=== PATIENT | female | born 1935 | race Caucasian/White ===

== ENCOUNTER → 2017-12-16 11:18 | Outpatient (CLI) | payer MEDICARE, OTHER, SELFPAY ==
--- NOTE | 2017-12-16 11:23 | RAD_ITS ---
STUDY: X-RAY - RIGHT KNEE REASON FOR EXAM: Pain, fall. TECHNIQUE: 4 view(s) of the knee. COMPARISON: None. FINDINGS: Normal visualized distal femur. Normal visualized proximal tibia and fibula. Normal proximal tibiofibular articulation. There is chondrocalcinosis of the medial meniscus and medial femoral condyle without joint space narrowing of the medial femorotibial compartment. There is chondrocalcinosis of the lateral meniscus, lateral femoral condyle and lateral tibial plateau without joint space narrowing of the lateral femorotibial compartment. Normal patellofemoral articulation. There is a small soft tissue calcification in the medial posterior aspect of the mid/distal thigh. RAD/Knee 4 or More Views IMPRESSION: Chondrocalcinosis Small soft tissue calcification in the thigh. No demonstrated fracture. Electronically Signed: Jevon Pavon MD at 14:41 EDT Tel , Service support ,
== END ==
PROVIDERS: Family Provider Internal Medicine; PCP Internal Medicine; Visit Provider Orthopaedic Surgery
DX: M25.561 Pain in right knee (principal)
CPT/HCPCS: 73564

== ENCOUNTER → 2018-01-19 09:04 | Outpatient (CLI) | payer MEDICARE, OTHER, SELFPAY ==
--- NOTE | 2018-01-19 09:08 | RAD_ITS ---
STUDY: X-RAY - LEFT SHOULDER REASON FOR EXAM: Female, 82 years old. Pain. TECHNIQUE: 4 view(s) of the shoulder. COMPARISON: Chest, April 27, 2013. FINDINGS: Normal glenohumeral articulation. There is degenerative arthrosis of the acromioclavicular joint without inferior osseous spur formation. Normal acromion. There is no acute fracture, dislocation or destructive osseous pathology. There is demineralization of the humerus and visualized osseous structures. The soft tissue structures are unremarkable. There is interval median sternotomy. Normal visualized pulmonary apex. RAD/Shoulder min 2 Views IMPRESSION: Mild degenerative changes of the acromioclavicular joint. The findings appear unchanged from a chest film of April 27, 2013. Electronically Signed: Gigi Iglesias DO at 18:51 EDT Tel [phone], Service support ,
== END ==
PROVIDERS: Family Provider Internal Medicine; PCP Internal Medicine; Visit Provider Internal Medicine
DX: M25.512 Pain in left shoulder (principal)
CPT/HCPCS: 73030

== ENCOUNTER 2018-01-20 10:00 | Outpatient (RCR) | payer MEDICARE, OTHER, SELFPAY ==
--- NOTE | 2017-12-22 14:50 | HP.PTEVAL_ITS ---
Patient's Visit Information PETER MARIEE is a 82 year old F referred to Physical Therapy by Trish Nieves DO with a diagnosis of Bilateral Knee Pain. Date of Evaluation: 12/22/17 Physical Therapist: Sharyn Vo - Visit Plan Frequency: 2x /Week Duration: 4 Weeks Plan: Focus on LE and core s/s - Subjective Subjective: June intial injury missed a step- saw PCP who gave her a medrol dose pack- and PT- did not get better- went to [place]- Oct 15, 2017 had another sharp and called PCP again- had MRI in [facility]- was diganosed with a gastroc strain- Saw Dr. Nieves when she got home- had an injection December and was sent to PT for aquatic therapy. Patient reports that currently she has pain on the medial side of the right knee and the posterior knee. Wost : 01/13 Agg:straining it, getting down on her knees, stairs, being up on it for to long- Mostly tired and achy- Eases: rubbing it, injection Best: 10/16. Pain does radiate to the calf and into the hip. No N/T in the leg. Lives with back pain- long time- weakness in it- it comes and goes. Sleep: wakes up at night- side sleeper- does not sleep with a pillow between her knees. Before all of this started she was coming to [employer] 5 days a week-(classes, TM, equiptment). Years ago she did water classes but is not currently enrolled. X- rays and MRI of the knee/ankle. PMHx: high cholesterol, HTN, heart surgery ( open heart 2013- followed by Dr. Bray). amlodipine, aspirin, atenolol, calcium carbonate 500 mg calcium, cholecalciferol (vitamin D3), glucosamine 750 [id number], omega [id number]-fish oil, - Objective Posture: FH, RS- increased kyphosis. Gait: no deviation noted. Stairs: asc/ desc 8 recip with 1 HR. HR/TR: WNL. SLS: 30 sec without LOB. ROM: WFL. Strength: Tracy: 5/5, Knee: 4/5, Hip: 4/5 throughout Core: fair minus - Goals Goal 1:: Patient will be I with HEP and progression Goal Time Frame: 4-6 Weeks Goal 2:: Patient will demo 5/5 strength in LE Goal Time Frame: 4-6 Weeks Goal 3:: Patient will maintain proper posture t/o tx session to demo increased core s/s. Goal Time Frame: 4-6 Weeks - Rehabilitation Potential Physical Therapy Diagnosis: Patient presents with hypomobility- she has decreased strength, flex and muscular endurance leading to poor posture and increased pain with ADL's. Rehabilitation Potential: Good - Anticipated Interventions Patient/Client Instruction: Educate patient on: Benefits of Fitness Program For the Purpose of:: To increase tolerance to activity/condition/position Therapeutic Exercise to Include: Strength training, Endurance training, Balance training, Agility training, Body mechanics, Postural training, Flexibilty training, In an aquatic setting, Dynamic Lumbar Stabilization For the Purpose of:: To improve muscle performance and motor function Thank you for the opportunity to evaluate your patient. For Medicare and Medicare HMO plans, please review the plan of care and approve it. It will need to be FAXED BACK to us at [phone] for Medicare purposes. Please let me know if there are questions or concerns regarding this plan of care. Physician Signature: Date:
--- NOTE | 2018-01-20 11:24 | HP.PTDCSUM ---
HP - PT D/C Summary It has been my pleasure to treat PEETR MARIEE under orders from Trish Nieves DO, for the diagnosis of Bilateral Knee Pain for a total of 9 visit(s). Discharge Date: Please see the following information for a summary of their discharge status. - Subjective Subjective: Patient reports that she is doing better- she is sore when she rides in the car for along time and as well as when she is gets up from sitting for to long. Saw MD yesterday who took x-rays of her shoulder and blood work for possible inflammatory disease - Pain R knee Pain Intensity (Out of 10): 0 L knee Pain Intensity (Out of 10): 0 - Objective Objective/Function: Posture: FH, RS- increased kyphosis. Gait: no deviation noted. Stairs: asc/desc 8 recip with 1 HR. HR/TR: WNL. SLS: 30 sec without LOB. ROM: WFL. Strength: Tracy: 5/5, Knee: 4/5, Hip: 4/5 throughout Core: fair minus - Goals Goal 1:: Patient will be I with HEP and progression Goal Progress: Goal Met Goal 2:: Patient will demo 5/5 strength in LE Goal Progress: Progressing Goal 3:: Patient will maintain proper posture t/o tx session to demo increased core s/s. Goal Progress: Progressing - Plan Plan: Discharge to [facility] with yossi porras - D/C Information If there are questions or concerns regarding this patient's physical therapy, please feel free to call me at [phone]. Thank you for the referral of this patient. Sincerely, Sharyn Vo
== END 2018-01-20 19:00 | disposition home or self-care (01) ==
LOC: PT 10:00
PROVIDERS: Family Provider Internal Medicine; PCP Internal Medicine; Visit Provider Orthopaedic Surgery
DX: S09.1 Injury of muscle and tendon of head (principal); M11.20 Other chondrocalcinosis, unspecified site; M25.561 Pain in right knee; M25.562 Pain in left knee
CPT/HCPCS: 97113; 97162; 97164

== ENCOUNTER → 2018-03-04 09:01 | Outpatient (CLI) | payer MEDICARE, OTHER, SELFPAY ==
--- NOTE | 2018-03-04 09:29 | RAD_ITS ---
STUDY: X-RAY - LEFT KNEE REASON FOR EXAM: Female, 82 years old. Chronic knee pain. TECHNIQUE: 4 view(s) of the knee. COMPARISON: None. FINDINGS: Normal visualized distal femur. Normal visualized proximal tibia and fibula. Normal proximal tibiofibular articulation. There is mild degenerative arthrosis of the medial femorotibial compartment. Normal lateral femorotibial compartment. Normal patellofemoral articulation. Chondrocalcinosis of the medial and lateral menisci. Minimal joint effusion. RAD/Knee 4 or More Views IMPRESSION: Degenerative arthrosis. Chondrocalcinosis of the medial and lateral menisci. Minimal joint effusion. Electronically Signed: Clayton De La Rosa MD at 12:53 EDT Tel [phone], Service support ,
== END ==
PROVIDERS: Family Provider Internal Medicine; PCP Internal Medicine; Visit Provider Internal Medicine
DX: M25.562 Pain in left knee (principal)
CPT/HCPCS: 73564

== ENCOUNTER 2018-03-07 10:30 | Outpatient (RCR) | payer MEDICARE, OTHER, SELFPAY ==
--- NOTE | 2018-01-26 18:00 | HP.PTEVAL_ITS ---
Patient's Visit Information PETER MARIEE is a 82 year old F referred to Physical Therapy by Rica Her with a diagnosis of NELLY SHOULDER PAIN. Date of Evaluation: 01/26/18 Physical Therapist: Manuela Do Visit Plan Frequency: 2-3x /Week Duration: 4-6 Weeks Plan: POSTURE CORRECTION/STRENGTHENING, INSTRUCTION IN APPROPRIATE BODY MECHANICS AND ACTIVITY MODIFICATIONS. NELLY UE ROM, STRETCHING AND STRENGTHENING. HEP INSTRUCTION. MODALITIES NEEDED. - Subjective Subjective: Diagnosis: NELLY SHOULDER PAIN LEFT > RIGHT. RIGHT HANDED. Work/ Leisure: RETIRED. Disability: NO. Present symptoms: NELLY SHOULDER PAIN LEFT > RIGHT. RIGHT HANDED. CURRENTLY DENIES NECK PAIN. Present since: 2 MONTHS. Pain Scale: Worst - 10/10 Least - 3/10. Currently: LEFT SHOULDER 6/10, RIGHT SHOULDER 3/10. Commenced as a result of: NO APPARENT REASON. Symptoms at onset: LEFT SHOULDER. Worse: PUTTING IT BEHIND HER BACK TO PUT HER BRA ON , HAS TO PUT LEFT SLEEVE ON FIRST, LEFT SDLY, TRYING TO MOVE ARM AFTER RESTING IT ON ARM REST. Better: HANGING AT SIDE. Disturbed sleep: YES. Previous history/Previous treatment: NO SHOULDER SURGERIES. NO INJECTIONS. NO SHOULDER PT. NO CHIRO. HISTORY OF NECK PROBLEMS AND HAD PT ABOUT 5 YEARS AGO. NO NECK SURGERY. NO NECK INJECTIONS. STATES DR. HERNANDEZ RECOMMENDED INJECTIONS BUT SHE DID NOT HAVE THEM. EXERCISE HELPED HER NECK. MASSAGE 2 WEEKS AGO HERE WITH CRICKET AND IT HELPED HER SHOULDERS. Dizziness: NO. Tinnitis: NO. Nausea : NO. Difficulty Swollowing: NO. Gait: NORMAL - NO ASSISTIVE DEVICES. Accidents: NO. Unexplained weight loss: NO. Imaging: RECENT LEFT SHOULDER X -RAY RESULTS: Mild degenerative changes of the acromioclavicular joint. The findings appear unchanged from a chest film of April 27, 2013. PMH/Recent major surgery: RECENT EPISODE OF PT FOR KNEES - IMPROVING. OPEN HEART SURGERY 2013. NO CVA. NO CANCER. NOT DIABETIC. HTN. - Objective Sitting Posture/Standing Posture: POOR. FORWARD HEAD AND ROUNDED SHOULDERS. Active Correction of posture: NE. Other Observations: INDEP GAIT AND TRANSFERS. Motor deficit: NELLY SHOUDER STRENGTH 3+/5 IN AVAILABLE ROM. PAIN WITH TESTING. NELLY ELBOW, WRIST AND HAND WFL. Sensory deficit: NO. ROM deficit : NELLY SHOULDER AROM LIMITED ABOUT 25% NELLY ALL PLANES WITH ACTIVE SHOULDER FLEX TO APPROX 135 DEG. PAIN WITH TESTING. NELLY ELBOW, WRIST AND HANDS WFL. Cervical Mvmt Loss: Flex: NIL. Pro: NIL. Ext: CHARLIE. Ret: CHARLIE. RSB: CHARLIE. LSB : CHARLIE. R Rot: MOD. L Rot: MOD. NO PAIN WITH CERVICAL ROM TESTING. Postural strength: POOR. Palpation: TENDERNESS OF NELLY SHOULDERS ESPECIALLY LEFT LATERAL SHOULDER. INCREASED MUSCLE TONE NELLY UPPER TRAPS LEFT > RIGHT. - Goals Goal 1:: DECREASE C/O NELLY SHOULDER PAIN Goal Time Frame: 4-6 Weeks Goal 2:: IMPROVE LIFTING, PUSHING, PULLING, REACHING, ADL AND SLEEP FUNCTION Goal Time Frame: 4-6 Weeks Goal 3:: INDEP HEP Goal Time Frame: 4-6 Weeks - Rehabilitation Potential Rehabilitation Potential: Fair - Anticipated Interventions Patient/Client Instruction: Educate patient on: Condition, Plan of Care, Risk Factors, Benefits of Fitness Program For the Purpose of:: To improve self management Therapeutic Exercise to Include: Strength training, Body mechanics, Postural training, Flexibilty training, Passive ROM, Active ROM, Scapular Strength/ Stabilization For the Purpose of:: To decrease pain, To increase ROM, To improve muscle performance and motor function, To increase tolerance to activity/condition/ position, To improve ability of physical actions for home/community/work/leisure Cryotherapy (ice pack, ice massage): Yes Thermo therapy (hot pack): Yes Ultrasound (thermal/non thermal): Yes For the Purpose of:: To decrease pain, To decrease swelling/inflammation, To increase ROM, To improve nutrient delivery to tissue Thank you for the opportunity to evaluate your patient. For Medicare and Medicare HMO plans, please review the plan of care and approve it. It will need to be FAXED BACK to us at [phone] for Medicare purposes. Please let me know if there are questions or concerns regarding this plan of care. Physician Signature: Date:
--- NOTE | 2018-02-18 14:54 | HP.PTREVAL_ITS ---
Rica Her, It has been my pleasure to treat PETER MARIEE over the last 9 visits for NELLY SHOULDER PAIN. Please see the progress note below for an update on the physical therapy plan of care! Subjective: PATIENT REPORTS SHE STILL FEELS LIKE THE THERAPY IS HELPING. ABLE TO DO THE HEP WITHOUT INCREASED PAIN. Objective/Function: UPON EXAM, PATIENT CONTINUES TO HAVE LIMITED BILATERAL SHOULDER FORWARD FLEXION AROM TO ABOUT 140 DEG BUT THERE IS MUCH LESS PAIN WITH MVMT NOW. SHE IS TOLERATING PRE WELL WITH INCREASED NELLY SHOULDER STRENGTH GRADED 4/5 NOW ALL PLANES WITH MMT'ING. PATIENT IS A GOOD CANDIDATE TO CONTINUE PT AT THIS TIME. Plan Plan: DECREASE PT TO 2X'S A WEEK X 3 WEEKS AND CONTINUE PER CURRENT POC WORKING TOWARD SAME GOALS. PATIENT IS AGREEABLE. Goals Goal 1:: DECREASE C/O NELLY SHOULDER PAIN Goal Time Frame: 4-6 Weeks Goal Progress: Progressing Goal 2:: IMPROVE LIFTING, PUSHING, PULLING, REACHING, ADL AND SLEEP FUNCTION Goal Time Frame: 4-6 Weeks Goal Progress: Progressing Goal 3:: INDEP HEP Goal Time Frame: 4-6 Weeks Goal Progress: Progressing Anticipated Interventions Patient/Client Instruction: Educate patient on: Condition, Plan of Care, Risk Factors, Benefits of Fitness Program For the Purpose of:: To improve self management Therapeutic Exercise to Include: Strength training, Body mechanics, Postural training, Flexibilty training, Passive ROM, Active ROM, Scapular Strength/ Stabilization For the Purpose of:: To decrease pain, To increase ROM, To improve muscle performance and motor function, To increase tolerance to activity/condition/ position, To improve ability of physical actions for home/community/work/leisure Cryotherapy (ice pack, ice massage): Yes Thermo therapy (hot pack): Yes Ultrasound (thermal/non thermal): Yes For the Purpose of:: To decrease pain, To decrease swelling/inflammation, To increase ROM, To improve nutrient delivery to tissue Please do not hesitate to contact me at [phone] by phone or Fax: if you have questions or concerns regarding this new plan of care! Sincerely, Manuela Alvarado
--- NOTE | 2018-03-07 11:31 | HP.PTDCSUM_ITS ---
HP - PT D/C Summary It has been my pleasure to treat PETER MARIEE under orders from Rica Her, for the diagnosis of NELLY SHOULDER PAIN for a total of 14 visit(s). Discharge Date: 03/07/18 Please see the following information for a summary of their discharge status. - Subjective Subjective: PATIENT REPORTS SHE WENT TO A FOLLOW UP WITH DR. HER WEDNESDAY. SHE REPORTS DR. HER DID NOT RECOMMEND FURTHER TESTING OR SURGERY FOR LEFT SHOULDER. STATES DR. HER DID NOT RECOMMEND LEFT SHOULDER MRI BUT SHE DID PUT HER ON PREDNISONE. PATIENT REPORTS SHE HAS BEEN ON PREDNISONE IN THE PAST FOR HER OTHER PAINS OTHER THAN HER SHOULDER. SHE HAS HAD CORTISONE INJECTION AND WATER EX PT FOR HER KNEE IN THE PAST. STATES DR. HER GAVE HER ANOTHER PT ORDER OPEN TO TREAT HER SHOULDERS, BACK AND KNEES BUT SHE FORGOT IT. 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 NO PAIN WHEN SHE WOKE UP THIS MORNING. PATIENT IS HOPEFUL THAT HEP AND TIME WILL GET LEFT SHOULDER BACK TO 100%. SHE REPORTS HER RIGHT SHOULDER IS BACK TO NORMAL AND HER LEFT SHOULDER PAIN RANGES 0/10 TO 1 OR 2/10 AT ITS WORST. ABLE TO GO BOATING AND GET ON THE JET SKI EVEN BUT FELT WEAKER THAN LAST YEAR. PATIENT REPORTS THE PREDNISONE SEEMS TO HAVE HELPED HER KNEE A LOT BUT NOT NOTICING A CHANGE IN HER SHOULDER. - Pain LEFT SHOULDER Pain Intensity (Out of 10): 1 RIGHT SHOULDER Pain Intensity (Out of 10): 0 - Overall Improvement % Improvement: 95 - Objective Objective/Function: PATIENTS LEFT SHOULDER PAIN, ROM AND STRENGTH HAS IMPROVED GREATLY SINCE INITIAL EVAL BUT SHE CONTINUES TO HAVE LEFT SHOULDER DECREASED ROM , STRENGTH AND PAIN COMPARED TO THE RIGHT SHOULDER WHICH IS NOW WNL IN TERMS OF FUNCTION AND NOT PAINFUL. UPON EXAM, LEFT SHOULDER AROM IN SITTING = 150 DEG, PROM IN LYING INTO FLEX = 158 DEG WITH END RANGE PAIN. SUPINE LEFT SHOULDER SCAPTION IN 160 DEG. SUPINE PASSIVE IR 75 DEG AND ER 69 DEG. PATIENT HAS SOME REPORTABLY MILD PAIN AT THE END OF THE AVAILABLE ROM WITH LEFT SHOULDER ROM TESTING ALL PLANES. NELLY UE MMT'ING IS 4-5/5 AND TESTING DOES NOT PROVOKE PAIN ( FLEX AND ABDUCTION TESTED MID-RANGE AND IR/ER ROTATION TESTED WITH ELBOW AT SIDE ) DASH SCORE HAS IMPROVED FROM 76 TO 53 SINCE FEBRUARY 18 AND FROM 81 TO 53 SINCE INITIAL EVAL. ALL GOALS HAVE MET. INDEP HEP. - Goals Goal 1:: DECREASE C/O NELLY SHOULDER PAIN Goal Progress: Goal Met Goal 2:: IMPROVE LIFTING, PUSHING, PULLING, REACHING, ADL AND SLEEP FUNCTION Goal Progress: Goal Met Goal 3:: INDEP HEP Goal Progress: Goal Met - Plan Plan: THIS PT AND PATIENT AGREE ON D/C TO INDEP EX AND FOLLOW UP WITH DR. HER NEEDED AT THIS TIME. WE WOULD BE HAPPY TO RESUME PT INDICATED IN THE FUTURE. - D/C Information If there are questions or concerns regarding this patient's physical therapy, please feel free to call me at [phone]. Thank you for the referral of this patient. Sincerely, Manuela Alvarado
== END 2018-03-07 19:00 | disposition home or self-care (01) ==
LOC: PT 10:30
PROVIDERS: Family Provider Internal Medicine; PCP Internal Medicine; Visit Provider Internal Medicine
DX: M25.512 Pain in left shoulder (principal); M25.511 Pain in right shoulder
CPT/HCPCS: 97035; 97110; 97140; 97162; 97164; 97530

== ENCOUNTER → 2018-08-01 11:31 | Outpatient (CLI) | payer MEDICARE, OTHER, SELFPAY ==
[2018-01-25 13:19] VITALS: BMI 25.4
--- NOTE | 2018-08-01 11:40 | US_ITS ---
STUDY: SUPERFICIAL ULTRASOUND - LOWER EXTREMITY. REASON FOR EXAM: Female, 83 years old. Ankle nodule/tender TECHNIQUE: A superficial ultrasound was performed with real-time and static aguilera-scale imaging. COMPARISON: None. FINDINGS: No discrete solid or cystic lesions are visualized. No subcutaneous edema is seen. US/Ext Non Vasc Limited/Soft Tiss IMPRESSION: No discrete solid or cystic lesion. Electronically Signed: Danuta Campos MD at 22:13 EST Tel , Service support ,
== END ==
PROVIDERS: Family Provider Internal Medicine; PCP Internal Medicine; Referring Provider Internal Medicine; Visit Provider Internal Medicine
DX: M25.572 Pain in left ankle and joints of left foot (principal); R22.42 Localized swelling, mass and lump, left lower limb
CPT/HCPCS: 76882

== ENCOUNTER → 2018-12-20 09:18 | Outpatient (CLI) | payer MEDICARE, OTHER, SELFPAY ==
[2018-01-25 13:19] VITALS: BMI 25.4
--- NOTE | 2018-12-20 09:22 | BI_ITS ---
MAMMOGRAPHY - BILATERAL SCREENING REASON FOR EXAM: Female, 83 years old. Routine annual screening examination. PERTINENT HISTORY: Daughter with breast cancer. Sister with breast cancer. Mother with breast cancer. Aunt with breast cancer. History of prior left excisional breast biopsy. TECHNIQUE: Digital bilateral breast joanna (3D mammographic acquisition) in the CC and MLO projections. 2-D mediolateral oblique (MLO) and craniocaudad (CC) views of both breasts were obtained. CAD: Full Field Digital Mammography with Computer Added Detection was performed. COMPARISON: Comparison is made with prior study dated September 02, 2017 and September 01, 2016. FINDINGS: Breast Composition: The breasts are heterogeneously dense, which may obscure small masses. There are no dominant masses or suspicious calcifications. No other significant abnormalities are identified. There has been no significant change since the prior study. BI/SCREENING MAMM (CAD), BILAT IMPRESSION: Stable bilateral screening mammogram. Yearly follow-up mammogram recommended. (A) ASSESSMENT CATEGORY: BIRADS Category 1: Negative. A letter regarding these results will be sent to the patient by the facility within 30 days. Approximately 10% of breast cancers are not detected by mammography. A normal mammogram should not delay biopsy of a clinically suspicious abnormality. [id number] Electronically Signed: Clayton De La Rosa, at 14:15 EDT , Service support ,
--- NOTE | 2018-12-20 09:27 | BD_ITS ---
STUDY: DUAL ENERGY X-RAY ABSORPTIOMETRY / DXA REASON FOR EXAM: Female, 83 years old. The patient is postmenopausal. Loss of height. TECHNIQUE: Bone Mineral Density (BMD) measurements of lumbar spine and bilateral hips were obtained. COMPARISON: Comparison is made with prior study dated August 19, 2010. FINDINGS: Lumbar Spine (L1-L4): g/cm2 (0.969) / T-score (-1.6) / Z-score (0.2) Findings are suggestive of osteopenia with a moderate fracture risk. Left Femur Total: g/cm2 (0.891) / T-score (-0.9) / Z-score (1.1) Left Femoral Neck: g/cm2 (0.806) / T-score (-1.7) / Z-score (0.5) Right Femur Total: g/cm2 (0.882) / T-score (-1.0) / Z-score (1.1) Right Femoral Neck: g/cm2 (0.835) / T-score (-1.5) / Z-score (0.8) The T-Scores on the most recent prior examination were: Lumbar Spine (L1-L4): There has been worsening of bone density since the previous examination. Left Femur Total: which represents a worsening of 1%. Right Femur Total: which represents an improvement of 0.3%. BD/Dexa Bone Density Study IMPRESSION: The patient is considered osteopenic as outlined below according to World Bruno Organization (WHO) criteria with a moderate fracture risk. There has been worsening of bone density since the previous examination. Reference Information: The T-score is the number of standard deviations above or below the standard which is normal for young adults at their peak bone mineral density. The World Health Organization (WHO) interprets the T-scores as follows: Above -1 Normal bone density Between -1 and -2.5 Osteopenia Equal to / or below -2.5 Osteoporosis As a practical clinical guideline, osteopenia may be graded as follows: Mild -1 through -1.5 Moderate -1.6 through -2.0 Severe -2.1 through -2.4 The Z-score is the number of standard deviations above or below age-matched controls. A Z-score of less than -1.5 would be considered abnormal. References: 1. NIH Osteoporosis and Related Bone Diseases http://www.osteo.org 2. International Society for Clinical Densitometry http://www.iscd.org 3. National Osteoporosis Foundation http://www.nof.org Electronically Signed: Clayton De La Rosa, at 11:45 EDT , Service support ,
--- NOTE | 2018-12-20 10:09 | CDU_ITS ---
Reason For Study: atherosclerosis Rt. Velocities/BP Lt. Velocities/BP Prox CCA 61.7/10.8 cm/sec. Prox CCA 77.2/15.7 cm/sec. Mid CCA 68.2/12.1 cm/sec. Mid CCA 70.6/14.6 cm/sec. Dist CCA 60.4/12.1 cm/sec. Dist CCA 57.4/12.4 cm/sec. Prox ICA 48.6/12.1 cm/sec. Prox ICA 56.3/15.7 cm/sec. Mid ICA 63.0/14.7 cm/sec. Mid ICA 61.8/12.4 cm/sec. Dist ICA 60.4/12.5 cm/sec. Dist ICA 75.0/20.1 cm/sec. Rt. ICA/CCA = .9. Lt. ICA/CCA = 1.1. Prox ECA 111.2/8.2 cm/sec. Prox ECA 101.4/5.8 cm/sec. Rt. Vert. 43.2/8.0 cm/sec. Lt. Vert. 32.2/6.9 cm/sec. Right Extracranial There is intimal thickening but no significant atherosclerotic plaque noted in the right common carotid artery. There is intimal thickening but no significant atherosclerotic plaque noted in the right internal carotid artery. There is intimal thickening but no significant atherosclerotic plaque noted in the right external carotid artery. Antegrade flow is noted in the right vertebral artery. Left Extracranial There is intimal thickening but no significant atherosclerotic plaque noted in the left common carotid artery. There is heterogeneous, irregular atherosclerotic plaque noted in the left internal carotid artery. There is heterogeneous, irregular atherosclerotic plaque noted in the left external carotid artery. Antegrade flow is noted in the left vertebral artery. Procedure Carotid Duplex [id number]. The exam was diagnostic. Exam performed in department. Interpretation Summary No significant atherosclerotic plaque or stenosis noted in the right internal carotid artery. Mild (<50%) stenosis left extracranial internal carotid. Flow within the vertebral arteries is antegrade bilaterally. Ordering Physician: Rica Her Performed By: Misbah Gilliam RVT
== END ==
PROVIDERS: Family Provider Internal Medicine; PCP Internal Medicine; Referring Provider Internal Medicine; Visit Provider Internal Medicine
DX: I65.22 Occlusion and stenosis of left carotid artery (principal); M85.80 Other specified disorders of bone density and structure, unspecified site; Z12.31 Encounter for screening mammogram for malignant neoplasm of breast; Z78.0 Asymptomatic menopausal state
CPT/HCPCS: 77063; 77067; 77080; 93880

== ENCOUNTER → 2019-01-06 07:05 | Outpatient (CLI) | payer MEDICARE, OTHER, SELFPAY ==
[2018-01-25 13:19] VITALS: BMI 25.4
[2019-01-06 09:27] LABS: AST(SGOT) 21 U/L (15-37); Alanine Aminotransfer ALT/SGPT 27 U/L (13-56); Albumin, Serum 3.5 g/dL (3.2-5.0); Alkaline Phosphatase 82 U/L (45-117); Bilirubin, Direct 0.11 mg/dL (0.00-0.30); Cholesterol 167 mg/dL (200); Globulin 3.1 g/dL (2.2-4.2); High Density Lipoprotein 38 mg/dL; Protein, Total 6.6 g/dL (6.4-8.2); Triglycerides 211 mg/dL; Very Low Density Lipoprotein 42 mg/dL (5-40)
== END ==
PROVIDERS: Nurse Practitioner Family; Family Provider Internal Medicine; PCP Internal Medicine; Referring Provider Internal Medicine Cardiovascular Disease; Visit Provider Internal Medicine Cardiovascular Disease
DX: E78.5 Hyperlipidemia, unspecified (principal); I25.10 Atherosclerotic heart disease of native coronary artery without angina pectoris
CPT/HCPCS: 36415; 80061; 80076

== ENCOUNTER → 2020-01-16 08:12 | Outpatient (CLI) | payer MEDICARE, OTHER, SELFPAY ==
[2019-01-10 12:33] VITALS: BMI 24.7
[2020-01-09 09:12] VITALS: BMI 24.3
--- NOTE | 2020-01-16 08:15 | BI_ITS ---
MAMMOGRAPHY - BILATERAL SCREENING REASON FOR EXAM: Female, 84 years old. Routine annual screening examination. PERTINENT HISTORY: Daughter with breast cancer. Remote left excisional breast biopsy. Sister with breast cancer. Mother with breast cancer. Aunt with breast cancer. TECHNIQUE: Digital bilateral breast lotus (3D mammographic acquisition) in the CC and MLO projections. 2-D mediolateral oblique (MLO) and craniocaudad (CC) views of both breasts were obtained. CAD: Full Field Digital Mammography with Computer Added Detection was performed. COMPARISON: Comparison is made with prior examination dated December 20, 2018 and September 02, 2017. FINDINGS: Breast Composition: The breasts are heterogeneously dense, which may obscure small masses. There are no dominant masses or suspicious calcifications. No other significant abnormalities are identified. BI/SCREEN MAMM (CAD) W/LOTUS BILAT IMPRESSION: Stable bilateral screening mammogram. Yearly follow-up mammogram recommended. (A) ASSESSMENT CATEGORY: BIRADS Category 1: Negative. A letter regarding these results will be sent to the patient by the facility within 30 days. Approximately 10% of breast cancers are not detected by mammography. A normal mammogram should not delay biopsy of a clinically suspicious abnormality. [id number] Electronically Signed: Clayton De La Rosa, at 9:01 EDT , Service support ,
== END ==
PROVIDERS: Family Provider Internal Medicine; PCP Internal Medicine; Referring Provider Internal Medicine; Visit Provider Internal Medicine
DX: Z12.31 Encounter for screening mammogram for malignant neoplasm of breast (principal); Z80.3 Family history of malignant neoplasm of breast
CPT/HCPCS: 77063; 77067

== ENCOUNTER 2020-01-22 08:51 | Day surgery (SDC) | payer MEDICARE, OTHER, SELFPAY ==
[2020-01-09 09:12] VITALS: BMI 24.3
--- NOTE | 2020-01-16 07:54 | RAD_ITS ---
STUDY: X-RAY CHEST REASON FOR EXAM: Female, 84 years old. Pre heart cath -- CAD, CP, some SOB -- stents-1998, bypass 2013 TECHNIQUE: PA and lateral views of the chest. COMPARISON: Comparison is made with prior study dated April 27, 2013. FINDINGS: Minimal increased markings are seen in the lingular segment of the left upper lobe with blunting of the left costophrenic angle. This most likely represents scarring. There is no demonstrated pleural abnormality. Sternal cerclage wires and vascular clips are present from a prior sternotomy and coronary artery bypass graft procedure (CABG). Normal mediastinum and ashley. Normal visualized pulmonary arteries. There is atherosclerotic calcification of the aortic arch with tortuosity. Normal visualized thoracic spine. Normal visualized ribs, clavicles, and shoulders. Surgical clips are seen in the right upper quadrant most likely secondary to prior cholecystectomy. RAD/Chest PA and Lateral IMPRESSION: No acute abnormality seen. Electronically Signed: Clayton De La Rosa, at 8:34 EDT , Service support ,
[2020-01-16 09:05] LABS: Absolute Lymphocyte Count 1.25 X10^3/uL (0.83-4.51); Absolute Neutrophil Count 5.3 X10^3/uL (2.0-7.7); Basophil# 0.08 X10^3/uL; Basophil% 1.1 % (0-1); Eosinophils% 2.7 % (0-5); Hematocrit 42.3 % (37-47); Hemoglobin 14.1 g/dL (12.0-15.0); Lymphocyte # 1.25 X10^3/ul (4.0); Lymphocyte % 16.9 % (19-41); Mean Corp Hgb Conc 33.3 g/dL (32-36); Mean Corpuscular Hgb 28.9 pg (27.0-32.0); Mean Corpuscular Volume 86.7 fL (81-99); Monocyte# 0.56 X10^3/uL; Monocyte% 7.6 % (0-10); NRBC Flagged by Analyzer 0 % (0-5); Neutrophil # 5.27 X10^3/uL (2.7-7.7); Neutrophil % 71.3 % (47-70); Platelet Count 195 K/mm3 (150-450); RBC Distribution Width CV 12.9 % (11.6-14.6); RBC Distribution Width SD 39.8 fl (35.1-43.9); Red Blood Count 4.88 M/mm3 (4.2-5.4); White Blood Count 7.4 K/mm3 (4.4-11.0)
[2020-01-16 09:28] LABS: Anion Gap 3 (5-15); BUN 20 mg/dL (7-18); BUN/Creat Ratio 14.9 RATIO (10-20); Calcium,Total 9.2 mg/dL (8.5-10.1); Chloride 107 mmol/L (98-107); Creatinine, Serum 1.34 mg/dL (0.55-1.02); EST Glomerular Filtration Rate 40 mL/min (>60); Est Glom Filt Rate - Afr Amer 49 mL/min (>60); Glucose 145 mg/dL (74-106); Potassium 3.9 mmol/L (3.5-5.1); Sodium Level 141 mmol/L (136-145)
[2020-01-19 12:06] VITALS: BMI 24.3
--- NOTE | 2020-01-22 09:40 | EKG12_ITS ---
Test Reason : PRE CATH Blood Pressure : / mmHG Vent. Rate : 053 BPM Atrial Rate : 053 BPM P-R Int : 202 ms QRS Dur : 078 ms QT Int : 450 ms P-R-T Axes : 064 005 095 degrees QTc Int : 422 ms Sinus bradycardia Anteroseptal infarct , age undetermined Abnormal ECG When compared with ECG of 26-APR-2013 23:06, No significant change was found Confirmed by LO FRAUSTO, VALERIO ([id number]), art editor PEDRO OLIVER ([id number]) on 01/23/2020 4:04:08 PM Referred By: Valerio Cheatham Confirmed By:VALERIO CHEATHAM MD
--- NOTE | 2020-01-22 11:47 | CL.D_ITS ---
Patient Name: PETER MARIEE Study Date: 01/22/2020 Performing: Saúl Cheatham MD Ht: 61.81 inches 157 cm : 1935 Wt: 132.28 lbs 60 kg Age: 84 Gender: female BSA: 1.6 PROCEDURE(S) PERFORMED [id number]-[id number]/COR/LV/CABG CLINICAL PROFILE AND INDICATIONS Indications: Suspected CAD Heart Failure: None Stress/Imaging Stress/Image Study Performed: No CONCLUSIONS Non obstructive coronary arteries Patent left internal mammary artery to the left anterior descending artery, mild disease noted in the right coronary artery and circumflex artery and occluded mid left anterior descending artery RECOMMENDATIONS Medical therapy DESCRIPTION OF PROCEDURE The patient arrived to the procedure lab. The risks and benefits of the procedure as well as a full d escription of our services here and current unavailability of surgical backup were fully explained to the patient and/or their significant other prior to the catheterization. The Timeout was completed, verifying the correct patient and procedure. The patient's procedural site was prepped and draped in the usual fashion. Local anesthetic was given subcutaneously to left radial region with Lidocaine 2%. Using a modified Seldinger technique, arterial access was obtained via the left radial artery, a 6Fr sheath was inserted. Left internal mammary artery graft to the LAD selective angiography was perfor med in multiple views using a 5 Fr. IM catheter. Left Coronary Artery selective angiography was perfo rmed in multiple views using a 5 Fr. JL4 catheter. Right Coronary Artery selective angiography was th en performed in multiple views using a 5 Fr. 3DRC (Surinder) catheter. Left Ventriculography was performed in WATERS projection using a 5 Fr. Pigtail catheter. LV to AO pullback pr essures were then recorded.The arterial sheath was pulled and a TR Band was applied for hemostasis CORONARY ANGIOGRAPHY DOMINANCE: Co- Dominant LEFT HEART ASSESSMENT Left Ventricular Ejection Fraction: by LV Gram 60 % Normal LV wall motion Normal Left Ventricular systolic function LEFT MAIN: Mild calcification LEFT ANTERIOR DESCENDING ARTERY: MID LAD: is occluded CIRCUMFLEX ARTERY: MID CIRC: Moderate luminal irregularities up to 50% RIGHT CORONARY ARTERY: Mild luminal irregularities less than 30% GRAFTS: JOHN graft to the Mid LAD is patent COMPLICATIONS No Complications PROCEDURE MEDICATIONS Versed 1 mg IV Fentanyl 50 mcg IV Versed 1 mg IV Oxygen: 2 L/min via nasal cannula Heparin given IA 01/22/2020 11:19:08 Verapamil 2.5mg, Ntg 100mcgs, 2000 units of Heparin given IA 01/22/2020 11:19:08 SUMMARY OF HEMODYNAMIC DATA Time AIR REST ECG 09:20:52 AO 140/52 (90) SA 11:20:47 LV 153/0, 8 11:34:00 LV 156/-1, 8 11:34:07 LV 152/2, 11 11:34:43 LV 152/1, 10 11:34:50 LVp 167/3, 14 11:34:57 AOp 161/52 (97) 11:35:02 Signed By Saúl Cheatham MD On 01/22/2020 11:47:15 Saúl Cheatham MD
== END 2020-01-22 13:15 | disposition home or self-care (01) ==
LOC: CLSP 08:52
PROVIDERS: PCP Internal Medicine; Referring Provider Internal Medicine Cardiovascular Disease; Visit Provider Internal Medicine Cardiovascular Disease
DX: I25.118 Atherosclerotic heart disease of native coronary artery with other forms of angina pectoris (principal); I10 Essential (primary) hypertension; E78.00 Pure hypercholesterolemia, unspecified; Z95.1 Presence of aortocoronary bypass graft; M15.9 Polyosteoarthritis, unspecified; K21.9 Gastro-esophageal reflux disease without esophagitis; Z79.82 Long term (current) use of aspirin; Z79.899 Other long term (current) drug therapy
CPT/HCPCS: 36415; 71046; 80048; 85025; 93005; 93459; 99152; 99153; J7040; C1769; C1894

== ENCOUNTER → 2021-01-14 14:49 | Outpatient (CLI) | payer MEDICARE, OTHER, SELFPAY ==
[2021-01-07 09:36] VITALS: BMI 23.2
--- NOTE | 2021-01-14 14:51 | CDU_ITS ---
Reason For Study: Atherosclerosis of left carotid artery Rt. Velocities/BP Lt. Velocities/BP Prox CCA 94.3/6.9 cm/sec. Prox CCA 83.8/10.2 cm/sec. Mid CCA 76/10.8 cm/sec. Mid CCA 78.3/12.4 cm/sec. Dist CCA 61.7/8.2 cm/sec. Dist CCA 56.3/6.9 cm/sec. Prox ICA 52/11.3 cm/sec. Prox ICA 58.1/12.6 cm/sec. Mid ICA 77.2/17.9 cm/sec. Mid ICA 59.3/10.2 cm/sec. Dist ICA 90.4/16.8 cm/sec. Dist ICA 81.4/16.3 cm/sec. Rt. ICA/CCA = 1.19. Lt. ICA/CCA = 1.04. Prox ECA 102.1 cm/sec. Prox ECA 113.8 cm/sec. Rt. Vert. 39.9/9.1 cm/sec. Lt. Vert. 47.5/8.8 cm/sec. Right Extracranial There is homogeneous, smooth atherosclerotic plaque noted in the right common carotid artery. There is intimal thickening but no significant atherosclerotic plaque noted in the right internal carotid artery. There is intimal thickening but no significant atherosclerotic plaque noted in the right external carotid artery. Antegrade flow is noted in the right vertebral artery. Left Extracranial There is homogeneous, smooth atherosclerotic plaque noted in the left common carotid artery. There is heterogeneous, irregular atherosclerotic plaque noted in the left internal carotid artery. There is heterogeneous, irregular atherosclerotic plaque noted in the left external carotid artery. Antegrade flow is noted in the left vertebral artery. Procedure Carotid Duplex [id number]. This is a Carotid Duplex examination using B-mode, color flow and specral Doppler. Exam performed in department. VL/Carotid Duplex Ultrasound Interpretation Summary No significant atherosclerotic plaque or stenosis noted in the right internal c arotid artery. Mild (<50%) stenosis left extracranial internal carotid. Flow within the vertebral a rteries is antegrade bilaterally. Ordering Physician: Rica Her Referring Physician: Rica Her Performed By: Kassi Fish RVT
== END ==
PROVIDERS: PCP Internal Medicine; Referring Provider Internal Medicine; Visit Provider Internal Medicine
DX: I65.22 Occlusion and stenosis of left carotid artery (principal)
CPT/HCPCS: 93880

== ENCOUNTER 2021-02-08 05:48 | Emergency (ER) | payer MEDICARE, OTHER, SELFPAY ==
[2021-01-07 09:36] VITALS: BMI 23.2
[2021-02-08 05:49] VITALS: BP 143/71; PULSE 60; RESP 18; TEMP 36.9; O2SAT 99; BMI 23.4
--- NOTE | 2021-02-08 05:58 | RAD_ITS ---
STUDY: X-RAY - PELVIS AND RIGHT HIP REASON FOR EXAM: Female, 85 years old. pain TECHNIQUE: 3 views of the pelvis and hip. COMPARISON: None. FINDINGS: There is a non-specific bowel gas pattern. Normal visualized soft tissue structures. Normal bilateral iliac wings, sacroiliac joints and visualized sacrum. Normal bilateral superior and inferior pubic rami. Normal pubic symphysis. Normal bilateral ischial tuberosities. Normal visualized femoral head. Normal acetabulum. Normal hip joint. RAD/HIP, UNI W/ Pelvis 2-3 Views IMPRESSION: Normal x-ray examination of the pelvis and hip. Electronically Signed: Gabriele Conde MD at 6:40 EDT Tel , Service support ,
--- NOTE | 2021-02-08 06:03 | EDS_ITS ---
HPI History of Present Illness Chief Complaint: Lower Extremity Injury Informant: patient Narrative Narrative: 85-year-old female states that on she was doing a lot of yard work. She started doing the yard work she began to have a slight discomfort in her hip. This pain is progressively worsened throughout the week and last night began to feel that she could not walk. She has tried some anti- inflammatories and Tylenol. She took a Flexeril last night. She notes focal tenderness just posterior to her greater trochanter. She notes pain with movement. [facility] Medical History Atherosclerotic heart disease of [place] coronary artery without angina pectoris Back problem Essential (primary) hypertension Gallstones Generalized osteoarthrosis of multiple sites GERD (gastroesophageal reflux disease) HLD (hyperlipidemia) Osteopenia Home Medications cholecalciferol (vitamin D3) 25 mcg (1,000 unit) tablet 1,000 unit PO QDAY 12/16/17 [History Last Taken Unknown] aspirin 81 mg tablet,delayed release 81 mg PO QDAY tab 01/24/18 [History Last Taken 01/22/20] calcium carbonate 500 mg calcium (1,250 mg) tablet 1,000 mg PO DAILY tab 01/09/20 [History Last Taken Unknown] folic acid 800 mcg tablet 0.8 mg PO DAILY 01/09/20 [History Last Taken Unknown] glucosamine-chondroitin 250 mg-200 mg tablet 2 tab PO BID tab 01/09/20 [History Last Taken Unknown] omega 9-hgd-otb-fish oil 1,000 mg (120 mg-180 mg) capsule 1,000 mg PO DAILY cap 01/09/20 [History Last Taken Unknown] omeprazole 20 mg capsule,delayed release 20 mg PO DAILY cap 01/09/20 [History Last Taken Unknown] vitamin B complex 1 tab PO DAILY 01/09/20 [History Last Taken Unknown] amlodipine 10 mg tablet 10 mg PO DAILY #90 tab 01/07/21 [Rx Last Taken Unknown] atenolol 25 mg tablet 25 mg PO QDAY #90 tab 01/07/21 [Rx Last Taken Unknown] simvastatin 20 mg tablet 20 mg PO QAM #90 tab 01/07/21 [Rx Last Taken Unknown] hydrocodone-acetaminophen 1 tab PO Q6H PRN PRN 3 Days #12 tablet 02/08/21 [Rx Last Taken Unknown] naproxen 500 mg PO BID #20 tab 02/08/21 [Rx Last Taken Unknown] Allergy/AdvReac Type Severity Reaction Status Date / Time No Known Allergies Allergy Verified 02/08/21 05:52 Family History Mother Cancer Ovarian cancer Heart disease Breast cancer Hypertension Valvular heart disease Father Cancer throat cancer Asthma Sister Breast cancer Daughter Cancer Surgical History 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) H/O left breast biopsy H/O: hysterectomy History of appendectomy History of coronary angioplasty (08/1999) History of left heart catheterization (01/22/20) History of ovarian cystectomy Hx of cholecystectomy Social History Smoking Status: Never smoker alcohol intake: current Alcohol type: wine ROS ROS ED Constitutional Constitutional ED: Denies chills or weight loss Eyes Eyes: Denies change in vision or diplopia ENT ENT ED: Denies ear pain, rhinorrhea or sore throat Cardiovascular Cardiovascular: Denies chest pain, orthopnea, palpitations or racing heartbeat Respiratory/Chest Respiratory/Chest: Denies cough, dyspnea or orthopnea Gastrointestinal Gastrointestinal: Denies abdominal pain, diarrhea, nausea or vomiting Genitourinary Genitourinary ED: Denies dysuria, hematuria or urinary frequency Musculoskeletal Musculoskeletal: Reports other Details: See history of present illness ; Denies arthralgias, back pain or myalgias Integumentary Denies abscess or rash Neurologic Neurologic: Denies headache(s) or weakness Psychiatric Psychiatric: Denies anxiety, depression, suicidal ideation or suicidal thoughts Endocrine Endocrinology: Denies polydipsia, polyphagia or polyuria Allergic/Immunologic Allergic/Immunologic ED: Denies mouth swelling, tongue swelling or urticaria EXAM Physical Exam Const Vital Signs: 02/08/21 05:49 Temperature 98.4 F Temperature Source Temporal Pulse Rate 60 Respiratory Rate 18 Blood Pressure 143/71 H Blood Pressure Mean 95 Pulse Ox 99 Oxygen Delivery Method Room Air Positive well nourished and well developed General Appearance ED: well developed HEENT Reports normocephalic, head/scalp atraumatic and moist mucous membranes Eyes PERRL and EOMs intact bilaterally Neck no lymphadenopathy, supple and no JVD Resp normal respiratory effort and clear to auscultation bilaterally Cardio regular rate, regular rhythm and no murmurs GI normal to inspection, nondistended, normoactive bowel sounds and non-tender Palpation: soft Back/Spine no CVA tenderness and normal ROM Extremity Extremity Narrative: Patient has tenderness posterior to the greater trochanter. She also has some tenderness anterior. She has painful range of motion of the hip. No skin changes to suggest infection. General Extremety ED: Negative for edema General Extremity: Negative for edema Neuro oriented x3 and CN's II-XII intact bilaterally Sensorium / Orientation: alert Motor Exam: strength 5/5 throughout Psych mental status grossly normal Mood & Affect: Negative for depressed or tearful Skin no rashes or lesions noted and no wounds MDM MDM MDM Narrative Medical decision making narrative: My interpretation of the plain films of the right hip and pelvis is no acute fracture. Clinically I think this is a bursitis. I gave her a dose of Kenalog and a dose of Toradol. I will place her on anti-inflammatories instructions for ice and rest. I will write a few [place] for pain. If she is not improving she should see orthopedics. Radiography Diagnostic Testing: Radiology Impression Hip/Pelvis X-Ray 02/08/21 05:58 IMPRESSION: Normal x-ray examination of the pelvis and hip. Electronically Signed: Gabriele Conde MD at 6:40 EDT Tel , Service support , Discharge Plan Triage Chief Complaint: Lower Extremity Injury ED Provider: Jasper Hernandez Dx/Rx/DC Orders Clinical Impression: Greater trochanteric bursitis of right hip Instructions: ED Bursitis Prescriptions: New hydrocodone-acetaminophen [hydrocodone-acetaminophen] 1 TABLET tablet 1 tab PO Q6H PRN PRN (Reason: Pain) 3 Days Qty: 12 RF: 0 naproxen 500 MG tablet 500 mg PO BID Qty: 20 RF: 0 No Action cholecalciferol (vitamin D3) 1,000 unit tablet 1,000 unit PO QDAY RF: 0 aspirin 81 mg tablet,delayed release (DR/EC) 81 mg PO QDAY RF: 0 calcium carbonate [Calcium 500] 500 mg calcium (1,250 mg) tablet 1,000 mg PO DAILY RF: 0 omega 4-zli-dct-fish oil [Fish Oil] 1,000 mg (120 mg-180 mg) capsule 1,000 mg PO DAILY RF: 0 omeprazole 20 mg capsule,delayed release(DR/EC) 20 mg PO DAILY RF: 0 vitamin B complex [B Complex-Vitamin B12] Tablet 1 tab PO DAILY RF: 0 folic acid 800 mcg tablet 0.8 mg PO DAILY RF: 0 glucosamine-chondroitin 250 mg-200 mg tablet 250-200 mg tablet 2 tab PO BID RF: 0 amlodipine 10 mg tablet 10 mg PO DAILY Qty: 90 RF: 4 atenolol 25 mg tablet 25 mg PO QDAY Qty: 90 RF: 3 simvastatin [Zocor] 20 mg tablet 20 mg PO QAM Qty: 90 RF: 3 Primary Care Provider: Rica Her Referrals: Rica Her MD [Primary Care Provider] - As Needed Tio Hilliard MD [STAFF PHYSICIAN] - 1 Week if not improving Disposition Disposition: Home, self care
[2021-02-08] MEDS: Ketorolac 30 MG/ML Syringe IM (06:52)
[2021-02-08] MEDS: Triamcinolone Acetonide 40 MG/ML Vial IM (06:54)
--- NOTE | 2021-02-08 07:37 | ED.RN ---
PT WAS OBSERVED FOR SHOT TIME FOR GREATER THAT 15 MIN, NO REACTION NOTED. PT D/C.
== END 2021-02-08 07:40 | disposition home or self-care (01) ==
LOC: ED 06:51
PROVIDERS: Emergency Provider Emergency Medicine; PCP Internal Medicine
DX: M70.61 Trochanteric bursitis, right hip (principal); I25.10 Atherosclerotic heart disease of native coronary artery without angina pectoris
CPT/HCPCS: 73502; 96372; 99282

== ENCOUNTER → 2021-04-07 08:56 | Outpatient (CLI) | payer MEDICARE, OTHER, SELFPAY ==
--- NOTE | 2021-04-07 08:58 | US_ITS ---
STUDY: ULTRASOUND OF THE FEMALE PELVIS - LIMITED REASON FOR EXAM: Female, 85 years old pelvic fullness, history of hysterectomy TECHNIQUE: Transabdominal TECHNICAL QUALITY: Adequate. COMPARISON: None. FINDINGS: The uterus is surgically absent. The right ovary is not visualized. There is no visualized right adnexal mass or complex lesion. The left ovary is not visualized. There is no visualized left adnexal mass or complex lesion. There is no fluid in the cul-de-sac. US/Pelvic (Non ) IMPRESSION: 1. Hysterectomy and nonvisualized ovaries. No substantial change since 06/18/2016. No demonstrated pelvic mass or acute abnormality. Electronically Signed: Khadar Castillo MD ([place]) at 9:55 EDT , Service support ,
== END ==
PROVIDERS: PCP Internal Medicine; Referring Provider Internal Medicine; Visit Provider Internal Medicine
DX: R19.00 Intra-abdominal and pelvic swelling, mass and lump, unspecified site (principal)
CPT/HCPCS: 76856

== ENCOUNTER 2021-05-08 09:00 | Outpatient (RCR) | payer MEDICARE, OTHER, SELFPAY ==
--- NOTE | 2021-04-10 11:45 | HP.PTEVAL_ITS ---
Patient's Visit Information PETER MARIEE is a 85 year old F referred to Physical Therapy by Dr. Rica Her MD with a diagnosis of Bilateral Hip Pain. Date of Evaluation: 04/10/21 Physical Therapist: Sharyn Vo DPT - Visit Plan Frequency: 2x /Week Duration: 4 Weeks Plan: Focus on LE and core strength/stabilization. HEP Given IE: TA Contraction, Bridge, Hip Add, Hip Abd GTB, Postural education - Subjective Patient reports that she goes to [place] in the winter- walks 30-45 minutes a day- does exercises at - [employer]- continued to walk but did not return to the gym right away. When the restrictions were lifted- she walked the and did two classes- Wednesday could not walk due to the right hip- had to be taken to the ED. Took an x-rays and diagnosed with bursitis on February 08. They gave her two injection and sent her home with ice and medication. This helped but wasn't a ton better- saw Dr. Her who gave her a cortisone injection. As she has continued to work through this she has started to have pain in the left hip. They go back to [place] in June. She had a pelvic ultrasound last week which was normal. Still having pain in bilateral hips right is worse than left. Pain is located along the lateral aspect of the hip- pain radiates to the knee- and has been getting vasyl horses in the calf but they subsiding. Describes the pain as more dull and achy. She has back pain- knows she has degeneration. Worst:5/10 Agg: laying down at night. Eases: Tylenol, ice Best: 0/10. Sleep: disturbed- wakes her up- painful when she lays on both sides. Does have N/T but its not new in bilateral LE right>left. Did have x-rays or the hip but not of the lumbar spine. No MRI. PMHx/Meds: see scanned in. - Objective Posture: FH, RS can correct with verbal and tactile cues but does not maintain. Gait: slight pelvic translation. Stair: asc/desc 8 recip with 1 HR- mild pelvic translation. HR/TR: able with UE A. SLS: weight shift but unable to SLS without A from UE. ROM: WFL in all planes of the lumbar spine, Hip: diminished IR by 50% with pain. Strength: Core: fair minus, Hip: 4/5 flexion/ext/abd 4-/5 IR/ER with discomfort. Flex: HS: moderate, Gastroc: moderate. Palpation: tender along greater troch into the gluts and paraspinals of the lumber spine. Special Test: LLD: negative, Squish Test: positive, Scour: positive, OLIVIER: positive - Goals Goal 1:: Patient will be I with HEP and progression Goal Time Frame: 4-6 Weeks Goal 2:: Patient will report no hip pain for 1 week Goal Time Frame: 4-6 Weeks Goal 3:: Patient will maintain proper posture t/o tx session to demo increased core s/s Goal Time Frame: 4-6 Weeks - Rehabilitation Potential Physical Therapy Diagnosis: Patient presents with hypomobility- she has decreased painfree ROM, LE and core strength/stabilization and muscular endurance leading to poor posture and increased pain with ADL's. Rehabilitation Potential: Fair - Anticipated Interventions Patient/Client Instruction: Educate patient on: Benefits of Fitness Program Therapeutic Exercise to Include: Strength training, Endurance training, Agility training, Body mechanics, Postural training, Flexibilty training, Gait and locomotor training, Neuromotor development, Dynamic Lumbar Stabilization, Scapular Strength/Stabilization For the Purpose of:: To improve muscle performance and motor function TENS: Yes Cryotherapy (ice pack, ice massage): Yes Thermo therapy (hot pack): Yes Ultrasound (thermal/non thermal): Yes Thank you for the opportunity to evaluate your patient. For Medicare and Medicare HMO plans, please review the plan of care and approve it. It will need to be FAXED BACK to us at [phone] for Medicare purposes. For Medicare only, by signing this I certify the plan of care. Please let me know if there are questions or concerns regarding this plan of care. Physician Signature: Date:
--- NOTE | 2021-05-08 15:13 | HP.PTREVAL ---
Dr. Rica Her MD, It has been my pleasure to treat PETER MARIEE over the last 9 visits for Bilateral Hip Pain. Please see the progress note below for an update on the physical therapy plan of care! Subjective: I'M FINE DURING THE DAY BUT NOT SOME NIGHTS. SOME NIGHTS ARE BETTER THAN OTHERS. PATIENT REPORTS THE US REALLY HELPED LAST VISIT. PATIENT REPORTS LESS PAIN AT NIGHT AND SLEEPING BETTER. PATIENT ALSO REPORTS HER BACK/CORE FEEL STRONGER AND SHE CAN GET COMFORTABLE MORE EASILY LYING ON HER BACK NOW. PATIENT REPORTS SHE LIKES THE EX'S. PATIENT REPORTS SHE FEELS LIKE SHE HAS ENOUGH EX'S FOR NOW AND IS GOING TO FOLLOW UP WITH Nathan HER TOMORROW. Objective/Function: PATIENT WAS SEEN TODAY FOR RE-ASSESSMENT OF PROGRESS TOWARD THE SET PT GOALS AND THE NEED FOR FURTHER PHYSICAL THERAPY VS READINESS FOR DISCHARGE. UPON EXAM TODAY: ALL GOALS HAVE BEEN MET BUT PATIENT IS STILL GETTING LOW BACK AND NELLY HIP PAIN MAINLY AT NIGHT. SHE RECENTLY REPORTED UP TO 7/10 PAIN AT NIGHT. Plan Plan: PHYSICIAN RE-CHECK. Balance/Gait/Functional tests - Balance/Special Test Scores Lower Extremity Functional Score: 69 Goals Goal 1:: Patient will be I with HEP and progression Goal Time Frame: 4-6 Weeks Goal Progress: Goal Met Goal 2:: Patient will report no hip pain for 1 week Goal Time Frame: 4-6 Weeks Goal Progress: Progressing Goal 3:: Patient will maintain proper posture t/o tx session to demo increased core s/s Goal Time Frame: 4-6 Weeks Goal Progress: Progressing Anticipated Interventions Patient/Client Instruction: Educate patient on: Benefits of Fitness Program Therapeutic Exercise to Include: Strength training, Endurance training, Agility training, Body mechanics, Postural training, Flexibilty training, Gait and locomotor training, Neuromotor development, Dynamic Lumbar Stabilization, Scapular Strength/Stabilization For the Purpose of:: To improve muscle performance and motor function TENS: Yes Cryotherapy (ice pack, ice massage): Yes Thermo therapy (hot pack): Yes Ultrasound (thermal/non thermal): Yes Please do not hesitate to contact me at [phone] by phone or if you have questions or concerns regarding this new plan of care! Sincerely, Manuela Alvarado, PT, Cert MDT
--- NOTE | 2021-05-23 11:47 | HP.PT.NRP ---
PETER MARIEE was seen in my office for initial evaluation on 04/10/21. The following Plan of Care was established for this patient: Initial Frequency: 2x /Week Initial Duration: 4 Weeks Patient/Client Instruction: Educate patient on: Benefits of Fitness Program Therapeutic Exercise to Include: Strength training, Endurance training, Agility training, Body mechanics, Postural training, Flexibilty training, Gait and locomotor training, Neuromotor development, Dynamic Lumbar Stabilization, Scapular Strength/Stabilization For the Purpose of:: To improve muscle performance and motor function TENS: Yes Cryotherapy (ice pack, ice massage): Yes Thermo therapy (hot pack): Yes Ultrasound (thermal/non thermal): Yes This patient was last seen in our office . Pertinent comments regarding their Physical therapy will appear below: PATIENT DROPPED A NOTE OFF TO ME TODAY REPORTING SHE AND DR. ROE AGREED ON HER CONTINUING HER HEP INDEP'LY AT THIS TIME AND WILL RE-ASSESS IN JUNE. At this point I will be discontinuing this patient from physical therapy. I would be happy to see this patient again in the future if found appropriate by the physician. Thank you! Maunela Alvarado, PT, Cert MDT Balance/Gait/Functional tests - Balance/Special Test Scores Lower Extremity Functional Score: 69
== END 2021-05-08 19:00 | disposition home or self-care (01) ==
LOC: PT 09:00
PROVIDERS: PCP Internal Medicine; Referring Provider Internal Medicine; Visit Provider Internal Medicine
DX: M25.552 Pain in left hip (principal); M25.551 Pain in right hip
CPT/HCPCS: 97035; 97110; 97140; 97162; 97164; 97530

== ENCOUNTER → 2021-06-23 10:02 | Outpatient (CLI) | payer MEDICARE, OTHER, SELFPAY ==
--- NOTE | 2021-06-23 10:04 | CDU_ITS ---
Reason For Study: occlusion and stenosis of left carotid artery Rt. Velocities/BP Lt. Velocities/BP Prox CCA 68.2/12.1 cm/sec. Prox CCA 79.4/13.5 cm/sec. Mid CCA 70.8/12.1 cm/sec. Mid CCA 77.2/15.7 cm/sec. Dist CCA 63.0/12.1 cm/sec. Dist CCA 54.1/10.2 cm/sec. Prox ICA 52.6/13.4 cm/sec. Prox ICA 55.2/12.4 cm/sec. Mid ICA 68.2/13.4 cm/sec. Mid ICA 60.7/15.7 cm/sec. Dist ICA 61.7/12.7 cm/sec. Dist ICA 65.2/15.6 cm/sec. Rt. ICA/CCA = 1.0. Lt. ICA/CCA = .8. Prox ECA 86.5/4.3 cm/sec. Prox ECA 86.0/4.7 cm/sec. Rt. Vert. 37.7/8.0 cm/sec. Lt. Vert. 46.5/10.2 cm/sec. Right Extracranial There is intimal thickening but no significant atherosclerotic plaque noted in the right common carotid artery. There is heterogeneous, smooth atherosclerotic plaque noted in the right internal carotid artery. There is intimal thickening but no significant atherosclerotic plaque noted in the right external carotid artery. Antegrade flow is noted in the right vertebral artery. Left Extracranial There is intimal thickening but no significant atherosclerotic plaque noted in the left common carotid artery. There is heterogeneous, irregular atherosclerotic plaque noted in the left internal carotid artery. There is homogeneous, smooth atherosclerotic plaque noted in the left external carotid artery. Antegrade flow is noted in the left vertebral artery. Procedure Carotid Duplex [id number]. This is a Carotid Duplex examination using B-mode, color flow and specral Doppler. The exam was diagnostic. Exam performed in department. VL/Carotid Duplex Ultrasound Interpretation Summary Minimal smooth plaque at the proximal right internal carotid artery with less t putnam 50% stenosis. Less than 50% stenosis right external carotid artery Irregular calcific plaque of the proximal left internal carotid artery with les s than 50% stenosis . Less than 50% stenosis of left external carotid artery Patent antegrade vertebral arteries bilaterally No change from the previous examination of May 11-2021 Ordering Physician: Rica Her Referring Physician: Rica Her Performed By: Misbah Gilliam RVT
== END ==
PROVIDERS: PCP Internal Medicine; Referring Provider Internal Medicine; Visit Provider Internal Medicine
DX: I65.22 Occlusion and stenosis of left carotid artery (principal)
CPT/HCPCS: 93880

== ENCOUNTER → 2021-06-24 08:31 | Outpatient (CLI) | payer MEDICARE, OTHER, SELFPAY ==
--- NOTE | 2021-06-24 08:36 | BD_ITS ---
STUDY: DUAL ENERGY X-RAY ABSORPTIOMETRY / DXA REASON FOR EXAM: Female, 85 years old. M85.89. The patient is postmenopausal. TECHNIQUE: Bone Mineral Density (BMD) measurements of lumbar spine and bilateral hips were obtained. COMPARISON: Comparison is made with prior study dated 12/20/2018 and 09/01/2016. FINDINGS: Lumbar Spine (L1-L4): g/cm2 (0.779) / T-score (-1.8) / Z-score (0.8) Findings are suggestive of osteopenia with a moderate fracture risk. Left Femur Total: g/cm2 (0.772) / T-score (-1.4) / Z-score (0.9) Left Femoral Neck: g/cm2 (0.642) / T-score (-1.9) / Z-score (0.6) Right Femur Total: g/cm2 (0.749) / T-score (-1.6) / Z-score (0.7) Right Femoral Neck: g/cm2 (0.652) / T-score (-1.8) / Z-score (0.7) The T-Scores on the most recent prior examination were: Lumbar Spine (L1-L4): There has been worsening of bone density since the previous examination. Left Femur Total: which represents a worsening of 6.8%. Right Femur Total: which represents a worsening of 8.6%. BD/Dexa Bone Density Study IMPRESSION: The patient is considered osteopenic as outlined below according to World Bruno Organization (WHO) criteria with a moderate fracture risk. There has been worsening of bone density since the previous examination. Reference Information: The T-score is the number of standard deviations above or below the standard which is normal for young adults at their peak bone mineral density. The World Health Organization (WHO) interprets the T-scores as follows: Above -1 Normal bone density Between -1 and -2.5 Osteopenia Equal to / or below -2.5 Osteoporosis As a practical clinical guideline, osteopenia may be graded as follows: Mild -1 through -1.5 Moderate -1.6 through -2.0 Severe -2.1 through -2.4 The Z-score is the number of standard deviations above or below age-matched controls. A Z-score of less than -1.5 would be considered abnormal. References: 1. NIH Osteoporosis and Related Bone Diseases www osteo.org 2. International Society for Clinical Densitometry www iscd.org 3. National Osteoporosis Foundation www nof.org Electronically Signed: Clayton De La Rosa MD at 13:25 EDT , Service support ,
--- NOTE | 2021-06-24 08:57 | BI_ITS ---
MAMMOGRAPHY - BILATERAL SCREENING REASON FOR EXAM: Female, 85 years old. Routine annual screening examination. PERTINENT HISTORY: Daughter with breast cancer. History of prior left excisional breast biopsy. Sister with breast cancer. Mother with breast cancer. Aunt with breast cancer. TECHNIQUE: Digital bilateral breast lotus (3D mammographic acquisition) in the CC and MLO projections. 2-D mediolateral oblique (MLO) and craniocaudad (CC) views of both breasts were obtained. CAD: Full Field Digital Mammography with Computer Added Detection was performed. COMPARISON: Comparison is made with prior study dated 01/16/2020 and 12/20/2018. FINDINGS: Breast Composition: The breasts are heterogeneously dense, which may obscure small masses. There are no dominant masses or suspicious calcifications. Stable focal area of architectural distortion in the retroareolar region of the left breast a complex history of prior left excisional breast biopsy. No other significant abnormalities are identified. There has been no significant change since the prior study. BI/SCRN MAMM (CAD)W/LOTUS BILAT IMPRESSION: Stable bilateral screening mammogram. Yearly follow-up mammogram recommended. (A) ASSESSMENT CATEGORY: BIRADS Category 2: Benign. A letter regarding these results will be sent to the patient by the facility within 30 days. Approximately 10% of breast cancers are not detected by mammography. A normal mammogram should not delay biopsy of a clinically suspicious abnormality. [id number] Electronically Signed: Clayton De La Rosa MD at 10:07 EDT , Service support ,
== END ==
PROVIDERS: PCP Internal Medicine; Visit Provider Internal Medicine
DX: M85.89 Other specified disorders of bone density and structure, multiple sites (principal); Z78.0 Asymptomatic menopausal state; Z12.31 Encounter for screening mammogram for malignant neoplasm of breast; Z80.3 Family history of malignant neoplasm of breast
CPT/HCPCS: 77063; 77067; 77080

== ENCOUNTER → 2021-07-02 08:23 | Outpatient (CLI) | payer MEDICARE, OTHER, SELFPAY ==
[2021-07-02 08:28] VITALS: BP 131/45; PULSE 52; RESP 16; TEMP 35.9; O2SAT 98; BMI 23.2
[2021-07-02] MEDS: 0.9% NaCl Peripheral Flush Adult/Peds IV (08:36)
[2021-07-02] MEDS: Zoledronic Acid 5 MG 100 ML 300 MG IV (08:37)
[2021-07-02 09:02] VITALS: BP 121/43; PULSE 50; RESP 16; TEMP 35.8
== END ==
PROVIDERS: PCP Internal Medicine; Referring Provider Internal Medicine; Visit Provider Internal Medicine
DX: M81.0 Age-related osteoporosis without current pathological fracture (principal)
CPT/HCPCS: 96365; A4216; J3489

== ENCOUNTER → 2021-12-25 | Outpatient (CLI) | payer MEDICARE, OTHER, SELFPAY ==
--- NOTE | 2021-12-25 16:19 | RAD_ITS ---
STUDY: X-RAY - LEFT ANKLE REASON FOR EXAM: Female, 86 years old. Acute pain. TECHNIQUE: 3 view(s) of the ankle. COMPARISON: 08/14/2015. FINDINGS: Normal visualized distal tibia and fibula. Normal medial and lateral malleoli. Normal tibiotalar articulation and ankle mortise. Normal visualized talus and calcaneus. The visualized subtalar, talonavicular, calcaneocuboid and tarsal articulations are normal. The soft tissue structures are unremarkable. RAD/Ankle min 3 Views IMPRESSION: No fracture or dislocation. Electronically Signed: Gigi Iglesias DO at 23:54 EDT ,
--- NOTE | 2021-12-25 16:25 | RAD_ITS ---
STUDY: X-RAY - LEFT FOOT CLINICAL: Female, 86 years old. The fifth metatarsal pain. TECHNIQUE: 3 view(s) of the foot. COMPARISON: Left ankle, 12/25/2021 FINDINGS: Normal talus, calcaneus, and tarsal bones. Normal visualized subtalar, talonavicular, calcaneocuboid, tarsal and tarsometatarsal articulations. Normal metatarsi. Normal metatarsophalangeal joint of the great toe. Normal tibial and fibular sesamoid bones. Normal interphalangeal joint of the great toe. Normal phalanges of the great toe. Normal second through fifth metatarsophalangeal joints. Normal interphalangeal joints and phalanges of the lesser toes. The soft tissue structures are unremarkable. RAD/Foot min 3 Views IMPRESSION: No visualized fracture or dislocation. Electronically Signed: Gigi Iglesias DO at 23:54 EDT ,
== END | disposition home or self-care (01) ==
LOC: MTRAD 16:18
PROVIDERS: PCP Internal Medicine; Referring Provider Internal Medicine; Visit Provider Internal Medicine
DX: M25.572 Pain in left ankle and joints of left foot (principal)
CPT/HCPCS: 73610; 73630

== ENCOUNTER → 2022-05-09 | Outpatient (CLI) | payer MEDICARE, OTHER, SELFPAY ==
--- NOTE | 2022-05-09 09:25 | MRI_ITS ---
STUDY: MRI LEFT MIDFOOT REASON FOR EXAM: Female, 86 years old. FOOT PAIN STRESS FX TECHNIQUE: Standardized fat and water weighted pulse sequences were obtained in all 3 orthogonal planes. COMPARISON: X-ray 12/25/2021 FINDINGS: Normal talonavicular articulation. Normal calcaneocuboid articulation. Normal navicular-cuneiform articulations. Normal intercuneiform articulations. Normal first tarsometatarsal articulation. Normal Lisfranc ligament. Normal second and third tarsometatarsal articulations. Normal cuboid fourth and cuboid fifth tarsometatarsal articulation. Normal first through fifth metatarsi. Normal tibialis anterior tendon. Normal extensor hallucis longus tendon. Normal extensor digitorum longus tendons. Normal peroneus longus tendon and distal insertion. Normal peroneus brevis tendon and distal insertion. Normal intrinsic muscles of the mid and forefoot region. Normal extensor digitorum brevis muscle. Normal subcutis adipose space. MRI/Lower Ext/No Jt/w/o IMPRESSION: Normal MRI of the midfoot. Electronically Signed: Gabriele Conde MD at 13:22 EDT ,
== END | disposition home or self-care (01) ==
LOC: MRI 08:42
PROVIDERS: PCP Internal Medicine; Referring Provider Internal Medicine; Visit Provider Internal Medicine
DX: M89.8X7 Other specified disorders of bone, ankle and foot (principal)
CPT/HCPCS: 73718

== ENCOUNTER → 2022-07-15 | Outpatient (CLI) | payer MEDICARE, OTHER, SELFPAY ==
--- NOTE | 2022-07-15 12:41 | BI_ITS ---
MAMMOGRAPHY - BILATERAL SCREENING REASON FOR EXAM: Female, 86 years old. Routine annual screening examination. PERTINENT HISTORY: Daughter with breast cancer. Sister with breast cancer. Mother with breast cancer. Aunt with breast cancer. Remote left excisional breast biopsy. TECHNIQUE: Digital bilateral breast lotus (3D mammographic acquisition) in the CC and MLO projections. 2-D mediolateral oblique (MLO) and craniocaudad (CC) views of both breasts were obtained. CAD: Full Field Digital Mammography with Computer Added Detection was performed. COMPARISON: Comparison is made with prior study dated 06/24/2021 and 01/16/2020. FINDINGS: Breast Composition: The breasts are extremely dense, which lowers the sensitivity of mammography. There are no dominant masses or suspicious calcifications. Stable focal area of distortion in the retroareolar region of the left breast in comparison with the prior excisional breast biopsy. No other significant abnormalities are identified. There has been no significant change since the prior study. BI/SCRN MAMM (CAD)W/LOTUS BILAT IMPRESSION: Stable bilateral screening mammogram. Yearly follow-up mammogram recommended. (A) ASSESSMENT CATEGORY: BIRADS Category 2: Benign. A letter regarding these results will be sent to the patient by the facility within 30 days. Approximately 10% of breast cancers are not detected by mammography. A normal mammogram should not delay biopsy of a clinically suspicious abnormality. [id number] Electronically Signed: Clayton De La Rosa MD at 13:45 EST ,
== END | disposition home or self-care (01) ==
LOC: OPBI 12:40
PROVIDERS: PCP Internal Medicine; Referring Provider Internal Medicine; Visit Provider Internal Medicine
DX: Z12.31 Encounter for screening mammogram for malignant neoplasm of breast (principal); Z92.89 Personal history of other medical treatment; Z80.3 Family history of malignant neoplasm of breast
CPT/HCPCS: 77063; 77067

== ENCOUNTER → 2023-01-14 | Outpatient (CLI) | payer MEDICARE, OTHER, SELFPAY ==
--- NOTE | 2023-01-14 17:07 | MRI_ITS ---
EXAM: MR LUMBAR SPINE WITHOUT INTRAVENOUS CONTRAST CLINICAL INDICATION: LOW BACK PAIN, DISC DEGEN TECHNIQUE: Multiplanar and multisequence MR images of the lumbar spine without intravenous contrast. COMPARISON: No relevant prior studies available. FINDINGS: VERTEBRAE: See below. SPINAL CORD: Unremarkable. Normal position and signal intensity of the conus medullaris. SOFT TISSUES: Unremarkable. DISCS/SPINAL CANAL/NEURAL FORAMINA: L1-L2: Central disc protrusion extending posteriorly 5 mm narrowing the dural sac to 9 mm. No lateral recess or foraminal stenosis. No nerve root impingement. L2-L3: Mild generalized disc bulge and disc space narrowing. No spinal canal, lateral recess, or foraminal stenosis. L3-L4: Mild disc space narrowing and generalized disc bulge. Mild bilateral facet arthropathy. No spinal canal, foraminal, or lateral recess stenosis. L4-L5: Disc space narrowing. Approximately 5 mm of anterior spondylolisthesis of L3 on L4. Mild generalized disc bulge. Moderate bilateral facet arthropathy and ligamentum flavum thickening. Dural sac is narrowed to 8 mm. Bilaterally the neural foramina are narrowed due to the spondylolisthesis and facet arthropathy. Possible impingement upon the L4 nerve roots in the neural foramina. Normal spinal canal and lateral recesses. L5-S1: Disc space narrowing. Mild generalized disc bulge moderate bilateral facet arthropathy with ligamentum flavum thickening.. Moderate left neural foraminal narrowing due to generalized disc bulge and facet arthropathy. Mild right neural foraminal narrowing due to generalized disc bulge and facet arthropathy. Normal spinal canal and lateral recesses. MRI/Spine Lumbar (Routine) IMPRESSION: 1. Bilateral neural foraminal stenosis L4-L5 due to the spondylolisthesis, generalized disc bulge, and facet arthropathy with ligamentum flavum thickening. Possible impingement upon the L4 nerve roots in the neural foramina. 2. Central disc protrusion at L1-L2 extending 5 mm posteriorly with narrowing of the dural sac to 9 mm consistent with mild spinal stenosis. No nerve root impingement identified. 3. Moderate left and mild right neural foraminal narrowing at L5-S1 due to generalized disc bulge and bilateral facet arthropathy with ligamentum flavum thickening. 4. Spondylosis L2-L3 and L3-L4 with mild generalized disc bulges and disc space narrowing. Electronically Signed: Eric Ansari MD at 18:50 EDT ,
--- NOTE | 2023-01-14 17:07 | MRI_ITS ---
STUDY: MRI THORACIC SPINE WITHOUT CONTRAST REASON FOR EXAM: Female, 87 years old patient with osteoarthritis and mid back pain. TECHNIQUE: Standardized fat and water weighted pulse sequences were obtained in the sagittal and axial planes. COMPARISON: None. FINDINGS: There is an increased kyphosis of the thoracic spine. There is no substantial scoliosis. T1-2, T2-3, T3-4, T4-5, T5-6, T6-7, T7-8, T8-9, T9-10, T10-11, T11-12: The thoracic vertebral bodies have generally normal height. There is narrowing of the T3-4, T5-6, T6-7, T7-8, and T8-9 discs. There is some irregularity inferior endplate of T5 which may represent Schmorl''s nodes. There is mild acquired central canal stenosis at T11-T12. Neural foramina are generally patent. Normal visualized thoracic cord. Normal conus medullaris that terminates at the T12-L1 level.. The soft tissue structures are unremarkable. MRI/Spine Thoracic (Routine) IMPRESSION: Multilevel degenerative changes without obvious cord or nerve impingement. Electronically Signed: Sherin Hilliard MD at 4:29 EDT ,
== END | disposition home or self-care (01) ==
LOC: MRI 17:00
PROVIDERS: PCP Internal Medicine; Referring Provider Internal Medicine; Visit Provider Internal Medicine
DX: M51.37 Other intervertebral disc degeneration, lumbosacral region (principal); M51.34 Other intervertebral disc degeneration, thoracic region; G89.29 Other chronic pain
CPT/HCPCS: 72146; 72148

== ENCOUNTER → 2023-07-16 | Outpatient (CLI) | payer MEDICARE, OTHER, SELFPAY ==
--- NOTE | 2023-07-16 12:29 | BI_ITS ---
MAMMOGRAPHY - BILATERAL SCREENING REASON FOR EXAM: Female, 87 years old. Routine annual screening examination. PERTINENT HISTORY: Daughter with breast cancer. Sister with breast cancer. Mother with breast cancer. Aunt with breast cancer. Remote left excisional breast biopsy. TECHNIQUE: Digital bilateral breast lotus (3D mammographic acquisition) in the CC and MLO projections. 2-D mediolateral oblique (MLO) and craniocaudad (CC) views of both breasts were obtained. CAD: Full Field Digital Mammography with Computer Added Detection was performed. COMPARISON: Comparison is made with prior study July 15, 2022 and June 24, 2021. FINDINGS: Breast Composition: The breasts are extremely dense, which lowers the sensitivity of mammography. There are no dominant masses or suspicious calcifications. Stable focal area of architectural distortion in the retroareolar region of the left breast in keeping with prior excisional breast biopsy. No other significant abnormalities are identified. There has been no significant change since the prior study. BI/SCRN MAMM (CAD)W/LOTUS BILAT IMPRESSION: Stable bilateral screening mammogram. Yearly follow-up mammogram recommended. (A) ASSESSMENT CATEGORY: BIRADS Category 2: Benign. A letter regarding these results will be sent to the patient by the facility within 30 days. Approximately 10% of breast cancers are not detected by mammography. A normal mammogram should not delay biopsy of a clinically suspicious abnormality. [id number] Electronically Signed: Clayton De La Rosa MD at 13:30 EST ,
== END | disposition home or self-care (01) ==
LOC: OPBD 12:29
PROVIDERS: PCP Internal Medicine; Referring Provider Internal Medicine; Visit Provider Internal Medicine
DX: Z12.31 Encounter for screening mammogram for malignant neoplasm of breast (principal)
CPT/HCPCS: 77063; 77067

== ENCOUNTER → 2023-07-20 | Outpatient (CLI) | payer MEDICARE, OTHER, SELFPAY ==
--- NOTE | 2023-07-20 15:16 | BD_ITS ---
STUDY: DUAL ENERGY X-RAY ABSORPTIOMETRY / DXA REASON FOR EXAM: Female, 88 years old. 733.00OsteoporosisBONE DENSITY REASON FOR EXAM TECHNIQUE: Bone Mineral Density (BMD) measurements of lumbar spine and bilateral hips were obtained. COMPARISON: Comparison is made with prior examination dated June 24, 2021. FINDINGS: Lumbar Spine (L1-L4): g/cm2 (0.910) / T-score (-1.2) / Z-score (1.6) Findings are suggestive of osteopenia with a low fracture risk. Left Femur Total: g/cm2 (0.790) / T-score (-1.2) / Z-score (1.1) Left Femoral Neck: g/cm2 (0.645) / T-score (-1.8) / Z-score (0.7) Right Femur Total: g/cm2 (0.727) / T-score (-1.8) / Z-score (0.6) Right Femoral Neck: g/cm2 (0.592) / T-score (-2.3) / Z-score (0.2) The T-Scores on the most recent prior examination were: Lumbar Spine (L1-L4): There has been worsening of bone density since the previous examination. Left Femur Total: which represents an improvement of 2.4%. Right Femur Total: which represents a worsening of 2.9%. BD/Dexa Bone Density Study IMPRESSION: The patient is considered osteopenic as outlined below according to World [employer] Organization (WHO) criteria with a high fracture risk. There has been worsening of bone density since the previous examination. Reference Information: The T-score is the number of standard deviations above or below the standard which is normal for young adults at their peak bone mineral density. The World Health Organization (WHO) interprets the T-scores as follows: Above -1 Normal bone density Between -1 and -2.5 Osteopenia Equal to / or below -2.5 Osteoporosis As a practical clinical guideline, osteopenia may be graded as follows: Mild -1 through -1.5 Moderate -1.6 through -2.0 Severe -2.1 through -2.4 The Z-score is the number of standard deviations above or below age-matched controls. A Z-score of less than -1.5 would be considered abnormal. References: 1. NIH Osteoporosis and Related Bone Diseases www osteo.org 2. International Society for Clinical Densitometry www iscd.org 3. National Osteoporosis Foundation www nof.org Electronically Signed: Clayton De La Rosa MD at 9:13 EST ,
== END | disposition home or self-care (01) ==
LOC: OPBD 15:12
PROVIDERS: PCP Internal Medicine; Referring Provider Internal Medicine; Visit Provider Internal Medicine
DX: M81.0 Age-related osteoporosis without current pathological fracture (principal)
CPT/HCPCS: 77080

== ENCOUNTER 2024-02-22 10:30 | Outpatient (RCR) | payer MEDICARE, OTHER, SELFPAY ==
--- NOTE | 2024-01-13 11:11 | HP.PTEVAL ---
Patient's Visit Information Visit Information Visit Information: PETER MARIEE is a 88 year old F referred to Physical Therapy by Dr. Rica Her MD with a diagnosis of unsteady gait. Date of Evaluation: 01/13/24 Physical Therapist: Salty Orellana, DPT, OCS, CSCS Visit Plan Frequency: 2x /Week Duration: 4-6 Weeks Plan: Bidoex balance test then likely 2x/week for 2-4 weeks for vestibular exercises, core exercise and head movement balance. Subjective Subjective: I am walking different in the last couple years gradually. Doctor agreed. No falls. No cane or walker. Sometimes leans on gonzalez and chairs. Turns too quickly may grab wall. Pretty active adn 4 days per week at for senior strength and swim class. No dizzyness. No nueropathy. Doctor used vibration and was hard to feel in feet. Sleep is OK, Pinched nerve in back sometimes keeps her up with leg pain. Not employed. Activities include: kitchen cooking bajing and is fine. Basic ADls at home are all OK. Objective Objective: Walks into and out of PT I and safely without AD. Trasnfers without UE safely. Steps reciprocally requiring one rail to descend safely. Sensation LE WNL to gross light otuch but vibration subjectively is effected distally strength in core adn hips 4- and knees and ankles 4/5. Flexibility is funcitonal reflexes 1/3 patella and achilles coordination to reciprocal toe and heel tap is slow and heel to cruz is good. Balance/Special Test Scores Functional Gait Assessment Score: 24 % Disability: 20.0000 CATSIB Score (Max score 120 seconds): 100 Lower Extremity Functional Score: 59 Goals Goal 1:: 25/30 FGA and 20 seconds foam ec stance to show improved balance Goal Time Frame: 4-6 Weeks Goal 2:: bidoex balance test adn review results Goal Time Frame: 2 Weeks Goal 3:: Pt feel 505 better in overall balance Goal Time Frame: 4-6 Weeks Rehabilitation Potential Physical Therapy Diagnosis: some balance deficits likely vestibular wekaness effecting comfortable funciton. Rehabilitation Potential: Fair Anticipated Interventions Patient/Client Instruction: Educate patient on: Condition For the Purpose of:: To decrease pain, To improve nutrient delivery to tissue, To improve muscle performance and motor function, To increase tolerance to activity/condition/position and To improve ability of physical actions for home/community/work/leisure Therapeutic Exercise to Include: Strength training, Balance training, Passive ROM and Active ROM For the Purpose of:: To improve muscle performance and motor function and To increase tolerance to activity/condition/position Text: Thank you for the opportunity to evaluate your patient. For Medicare and Medicare HMO plans, please review the plan of care and approve it. It will need to be FAXED BACK to us at [phone] for Medicare purposes. For Medicare only, by signing this I certify the plan of care. Please let me know if there are questions or concerns regarding this plan of care. Physician Signature: Date:
--- NOTE | 2024-01-24 08:42 | HP.PTCOM ---
PT Communication Note 01/24/[address] Rica Her MD , Thank you for the referral of Fozia to [facility] for balance assessment. I have enclosed a copy of the results for your review. In summation, the Limits of stability test showed a malalignment of center of gravity forward. it also showed poor efficiency at backwards weight shifting. Her Modified CATSIB test scored very well. her sensory systems seem to be efficient in balance. She purposefully moved unintentionally skewing the results of the eyes open firm ground portion to the negative side but had no trouble with this portion of the test. With these results in mind, I plan to continue our 2x/week x 2-4 week POC to teach her exercises to address her balance deficits and work to independence. If there are questions regarding her testing or therapy, please feel free to contact me. Thank you for this referral. Sincerely, Salty Orellana DPT, OCS, CSCS Contact Information
--- NOTE | 2024-02-22 10:49 | HP.PTDCSUM ---
Discharge Summary D/C summary: It has been my pleasure to treat PETER MARIEE referred by Dr. Rica Her MD, with the diagnosis of unsteady gait for a total of 7 visit(s). Discharge Date: 02/22/24 Please see the following information for a summary of their discharge status. Subjective Subjective: Doing exercises every day except one. Exercises seem to help. Feeling more steady. Mindful of balance. Exercises getting easier. Feels more steady and feels like she can catch herself if she loses balance, none lately. Activities normal. Pain LBP: Pain Intensity (Out of 10): 2 Overall Improvement % Improvement: 50 Objective Objective/Function: FGA is +4 romberg ec foam 20 seconds. walking with confidence and willing to continue I adding these balance ex to her regular ex Goals Goal 1:: 25/30 FGA and 20 seconds foam ec stance to show improved balance Goal Progress: Goal Met Goal 2:: bidoex balance test adn review results Goal Progress: Goal Met Goal 3:: Pt feel 50% better in overall balance Goal Progress: Goal Met Goal 4:: I HEP to minimize future troubles. Goal Progress: Goal Met Plan Plan: d/c D/C Information d/c sentence: If there are questions or concerns regarding this patient's physical therapy, please feel free to call me at [phone]. Thank you for the referral of this patient. Sincerely, Salty Orellana, DPT, OCS, CSCS Balance/Gait/Functional tests Balance/Special Test Scores Functional Gait Assessment Score: 28 % Disability: 6.6700 CATSIB Score (Max score 120 seconds): 100 Lower Extremity Functional Score: 68 Improvement % Improvement: 50
== END 2024-02-22 19:00 | disposition home or self-care (01) ==
LOC: PT 10:30
PROVIDERS: PCP Internal Medicine; Referring Provider Internal Medicine; Visit Provider Internal Medicine
DX: R26.81 Unsteadiness on feet (principal)
CPT/HCPCS: 97110; 97112; 97161; 97530; 97750

== ENCOUNTER → 2024-05-02 | Outpatient (CLI) | payer MEDICARE, OTHER, SELFPAY ==
--- NOTE | 2024-05-02 10:00 | RAD_ITS ---
INDICATION: dorsal back pain EXAMINATION/TECHNIQUE: X-RAY - XR Spine Thoracic Min 4 Views COMPARISON: Plain film examination of 06/17/2021, MRI of 01/14/2023 FINDINGS: VERTEBRAE: Vertebral body height and alignment is maintained. Marginal osteophyte formation multiple levels. No fracture or destructive bony process. No fracture. No spondylolisthesis. Preservation of the normal thoracic kyphosis. Marginal osteophytes at multiple levels. Disc spaces however maintained. DISCS: Disc spaces are maintained. INCLUDED CHEST/ABDOMEN: No acute abnormalities. There are diffuse aortic calcification throughout the thoracic and abdominal aorta. RAD/Thoracic Spine Min 4 Views IMPRESSION: 1. Mild diffuse thoracic spondylosis marginal osteophyte formation is noted. Findings are stable. 2. No acute fracture or destructive bony process noted. 3. Diffuse aortic calcifications. Electronically Signed: Gabriele Hollis MD at 21:44 EDT ,
== END | disposition home or self-care (01) ==
LOC: MTRAD 09:50
PROVIDERS: PCP Internal Medicine; Referring Provider Anesthesiology Pain Medicine; Visit Provider Anesthesiology Pain Medicine
DX: M54.9 Dorsalgia, unspecified (principal)
CPT/HCPCS: 72074

== ENCOUNTER → 2024-06-22 | Outpatient (CLI) | payer MEDICARE, OTHER, SELFPAY ==
--- NOTE | 2024-06-22 08:07 | CDU_ITS ---
Reason For Study: Carotid Stenosis Rt. Velocities/BP Lt. Velocities/BP Prox CCA 90.8/9.5 cm/sec. Prox CCA 78.0/11.0 cm/sec. Mid CCA 76.5/8.4 cm/sec. Mid CCA 75.2/11.0 cm/sec. Dist CCA 74.3/10.6 cm/sec. Dist CCA 69.5/12.8 cm/sec. Prox ICA 47.9/12.7 cm/sec. Prox ICA 64.8/14.7 cm/sec. Mid ICA 66.9/11.7 cm/sec. Mid ICA 56.3/12.8 cm/sec. Dist ICA 93.0/19.3 cm/sec. Dist ICA 63.0/11.3 cm/sec. Rt. ICA/CCA = 1.2. Lt. ICA/CCA = 0.9. Prox ECA 85.5/3.2 cm/sec. Prox ECA 90.1/5.7 cm/sec. Rt. Vert. 36.0/7.5 cm/sec. Lt. Vert. 31.7/7.3 cm/sec. Right Extracranial There is intimal thickening but no significant atherosclerotic plaque noted in the right common carotid artery. There is heterogeneous, irregular atherosclerotic plaque noted in the right internal carotid artery. There is intimal thickening but no significant atherosclerotic plaque noted in the right external carotid artery. Antegrade flow is noted in the right vertebral artery. Left Extracranial There is heterogeneous, irregular atherosclerotic plaque noted in the left common carotid artery. There is heterogeneous, irregular atherosclerotic plaque noted in the left internal carotid artery. There is heterogeneous, irregular atherosclerotic plaque noted in the left external carotid artery. Antegrade flow is noted in the left vertebral artery. Procedure Carotid Duplex 32886. This is a Carotid Duplex examination using B-mode, color flow and specral Doppler. The exam was diagnostic. Exam performed in department. VL/Carotid Duplex Ultrasound Interpretation Summary Mild (<50%) stenosis right extracranial internal carotid. Mild (<50%) stenosis left extracranial internal carotid. Flow within the vertebral arteries is antegrade bilaterally. Ordering Physician: Rica Her Referring Physician: Rica Her Performed By: Yimi Kaamra RVT
--- NOTE | 2024-06-22 10:52 | RAD_ITS ---
INDICATION: GROIN PAIN EXAMINATION/TECHNIQUE: X-RAY - LEFT XR Hip Unilateral with Pelvis when performed; 2-3 Views COMPARISON: 02/08/2021 pelvis radiographs. FINDINGS: Single frontal view of the pelvis. 2 views of the left hip. BONES: Normal anatomic alignment without evidence of fracture or subluxation. No concerning bony lesion or abnormal sclerosis to suggest lesion. JOINTS: No significant degenerative change. SOFT TISSUES: Unremarkable. RAD/HIP, UNI W/ Pelvis 2-3 Views IMPRESSION: No acute osseous abnormality of the pelvis or left hip. Electronically Signed: Ronaldo Trivedi MD at 21:13 EDT ,
== END | disposition home or self-care (01) ==
PROVIDERS: PCP Internal Medicine; Referring Provider Anesthesiology Pain Medicine; Visit Provider Anesthesiology Pain Medicine
DX: I65.22 Occlusion and stenosis of left carotid artery (principal); R10.32 Left lower quadrant pain
CPT/HCPCS: 73502; 93880

== ENCOUNTER 2024-06-24 10:01 | Inpatient (IN) | payer MEDICARE, OTHER, SELFPAY ==
[2024-06-24 10:02] VITALS: BP 140/63; PULSE 78; RESP 16; TEMP 36.7; O2SAT 99; BMI 22.6
--- NOTE | 2024-06-24 10:43 | CT_ITS ---
EXAM: CT ABDOMEN AND PELVIS WITH INTRAVENOUS CONTRAST CLINICAL INDICATION: Lower quadrant abdominal pain TECHNIQUE: Helically acquired images were obtained of the abdomen and pelvis with intravenous contrast. This CT exam was performed using one or more of the following dose reduction techniques: automated exposure control, adjustment of the mA and/or kV according to patient size, and/or use of iterative reconstruction technique. CONTRAST: 100 mL of IV Isovue-370. RADIATION DOSE: CTDIvol = 12.41 mGy, DLP = 532.44 mGy-cm COMPARISON: No relevant prior studies available. FINDINGS: LOWER THORAX: Linear atelectases in the left anterior lung base and right posterior lung base. No cardiomegaly. No significant pericardial effusion. ABDOMEN: LIVER: 3 cm nonenhancing low-attenuation lesion in segment 2 of the liver parenchyma with CT number of 10.29 Hounsfield units. GALLBLADDER AND BILE DUCTS: Surgical clips in the gallbladder fossa area from cholecystectomy. No intrahepatic biliary ductal dilatation. Mild dilatation of the CBD. PANCREAS: Unremarkable. No focal cystic or solid mass. SPLEEN: Unremarkable. Normal size without focal cystic or solid mass. ADRENALS: Unremarkable. No nodules. KIDNEYS AND URETERS: Unremarkable. Normal renal size and position. No hydronephrosis. STOMACH AND BOWEL: Mild intramural edema of the lower sigmoid colon and rectum. No associated diverticula. No stomach or bowel distention. PELVIS: APPENDIX: Nonvisualization of the appendix but no secondary signs of acute appendicitis. BLADDER: Unremarkable. REPRODUCTIVE: Unremarkable as visualized. No mass. ABDOMEN and PELVIS: INTRAPERITONEAL SPACE: Unremarkable. No ascites or other fluid collection. No free air. BONES/JOINTS: Unremarkable. No suspicious lytic or blastic abnormality. SOFT TISSUES: Unremarkable. No discrete abdominal or pelvic wall hernia. VASCULATURE: Multiple calcified plaques along the abdominal aorta and iliac arteries. No abdominal aortic aneurysm or dissection. No significant stenosis of the abdominal aorta and all its branches. LYMPH NODES: Unremarkable. No enlarged lymph nodes. CT/Abdomen/Pelvis W IV Cont ONLY IMPRESSION: 1. Mild intramural edema in the rectal wall and proximal sigmoid colon without associated diverticulosis. This may be secondary to mild proctitis and mild colitis. Proctoscopy and colonoscopy will be helpful. 2. No bowel obstruction, mass or lymphadenopathy in the abdomen and pelvis. 3. Mild dilatation of the common bile is most likely related to post cholecystectomy. No intrahepatic biliary ductal dilatation. 4. 3 cm nonenhancing low-attenuation lesion in segment 2 of the liver parenchyma with CT number of 10.29 Hounsfield units. ACR White Paper guidelines (Jael, et al. JACR 2017; 14(11):8618-4142.) suggest no follow-up is necessary. Electronically Signed: Luisito Meehan MD at 12:15 EDT ,
--- NOTE | 2024-06-24 10:44 | EX.ED.DYSGE1 ---
HPI History of Present Illness Chief Complaint: Abd Pain Narrative Narrative: Chief complaint and HPI: Bilateral lower abdominal pain. 88-year-old female with history of CAD status post bypass, HTN, HLD, history of hysterectomy presents for evaluation of bilateral lower abdominal pain. Patient was sent in by her PCP. Patient states she intermittently suffers from constipation. She uses stool softeners. Her last bowel movement was Wednesday. Patient states on she developed bilateral lower quadrant abdominal pain with constipation. She was stool softeners yesterday as well as enemas with no relief. Patient states her abdominal pain has worsened. She called her PCP who told her to go to the ER. She endorses nausea but no vomiting. Denies any fever, chills, shortness of breath, chest pain, dysuria, hematuria. Patient states she has been eating and drinking. She has not eaten yet today Review of systems: See HPI Medications: As listed on the chart Allergies: As listed on the chart PFSH: Per chart Vital signs: As listed on the chart. Reviewed. Physical exam: Gen: A&O x3, NAD Head: Normocephalic, atraumatic Eyes: No sclera icterus, conjunctiva clear ENT: Moist mucous membranes Neck: Trachea midline, No JVD CV: RRR, no murmurs, no peripheral edema Resp: Lungs CTA BL, no w/r/c GI: Abd soft, non-distended, tender to palpation in the bilateral lower quadrant, + voluntary guarding, no rebound or rigidity Musc: Full ROM, no deformity Skin: Warm, dry Neuro: Alert, oriented, grossly intact, sensation intact Psych: Cooperative, appropriate mood and affect [facility] Medical History (Updated 06/24/24 @ 14:30 by Heahter Juan) Myocardial infarct Hypertension Greater trochanteric bursitis of right hip Trochanteric bursitis of right hip Essential (primary) hypertension GERD (gastroesophageal reflux disease) Osteopenia Gallstones Back problem Generalized osteoarthrosis of multiple sites Atherosclerotic heart disease of [place] coronary artery without angina pectoris HLD (hyperlipidemia) Home Medications ?Medication ?Instructions ?Recorded ?Last Taken ?Type aspirin 81 mg tablet,delayed 81 mg PO QDAY 01/24/18 06/23/24 History release folic acid 800 mcg tablet 0.8 mg PO DAILY 01/09/20 06/23/24 History glucosamine-chondroitin 250 mg-200 1 tab PO DAILY 01/09/20 06/23/24 History mg tablet (Osteo Bi-Flex) omeprazole 20 mg capsule,delayed 20 mg PO DAILY 01/09/20 06/23/24 History release rosuvastatin 20 mg tablet 20 mg PO QHS 02/26/23 06/22/24 History acetaminophen 500 mg tablet 500 mg PO BID 02/11/24 06/23/24 History (Tylenol Extra Strength) cholecalciferol (vitamin D3) 25 25 mcg PO DAILY 02/11/24 06/23/24 History mcg (1,000 unit) tablet ibandronate 150 mg tablet 150 mg PO QMONTH 02/11/24 05/28/24 History atenolol 25 mg tablet 25 mg PO QDAY #90 tabs 05/04/24 06/23/24 Rx amlodipine 10 mg tablet 10 mg PO DAILY #90 tabs 05/25/24 06/23/24 Rx calcium carbonate 1,000 mg PO DAILY 06/24/24 06/23/24 History omega 3 350 mg-dha 235 mg-epa 90 1 cap PO DAILY 06/24/24 06/23/24 History mg-fish oil 597 mg capsule,delay rel ([place]-3) turmeric 400 mg capsule 400 mg PO DAILY 06/24/24 06/23/24 History vitamin B comp and C no.3 15 mg-10 1 cap PO DAILY 06/24/24 06/23/24 History mg-50 mg-5 mg-300 mg capsule (B Complex Plus Vitamin C) Allergy/AdvReac Type Severity Reaction Status Date / Time No Known Allergies Allergy Verified 02/11/24 10:53 Family History Mother Cancer Ovarian cancer Heart disease Breast cancer Hypertension Valvular heart disease Father Cancer throat cancer Asthma Sister Breast cancer Daughter Cancer Surgical History (Updated 06/24/24 @ 14:30 by Heather Juan) History of coronary artery stent placement History of left heart catheterization (01/22/20) History of coronary angioplasty (08/1999) 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) H/O left breast biopsy History of ovarian cystectomy History of appendectomy Hx of cholecystectomy H/O: hysterectomy Social History Smoking Status: Never smoker alcohol intake: current alcohol intake frequency: holidays/special occasions only Alcohol type: wine substance use type: does not use caffeine: No EXAM Physical Exam Const Vital Signs: 06/24/24 10:02 06/24/24 12:02 Temperature 98.1 F Temperature Source Oral Pulse Rate 78 67 Respiratory Rate 16 17 Blood Pressure 140/63 H 163/65 H Blood Pressure Mean 88 97 Pulse Ox 99 96 Oxygen Delivery Method Room Air Room Air MDM MDM MDM Narrative Medical decision making narrative: 88-year-old female presents for evaluation of bilateral lower abdominal pain with constipation. Differential diagnosis includes but is not limited to diverticulitis, appendicitis, constipation, gastroenteritis, UTI, obstruction. Morphine and Zofran ordered for symptoms. Abdominal pain workup ordered including CT abdomen pelvis. CBC with a leukocytosis of 35.4. Given significant leukocytosis C. difficile added despite patient's constipation. Patient is hemoconcentrated with a hemoglobin of 16.2. CMP shows renal insufficiency with a creatinine of 1.17. In 2019 patient's creatinine was 1.34. Unknown if this is her baseline or MARA. NS bolus ordered. Lactic acid unremarkable. No transaminitis. Lipase unremarkable. UA negative for UTI. CT abdomen pelvis shows mild intramural edema in the rectal wall and proximal sigmoid colon without associated diverticulosis. May be secondary to mild proctitis and mild colitis. She has a 3 cm nonenhancing low-attenuation lesion in segment 2 of the liver. Suggest no follow-up. Given patient's colitis with leukocytosis patient will warrant admission for further treatment. Zosyn ordered for antibiotics. Patient was updated on all the results and confirmed understanding of plan. Patient was admitted to the hospitalist service. Impression: 1. Colitis/proctitis 2. Renal insufficiency Lab Data Labs: Laboratory Results - last 24 hr 06/24/24 06/24/24 06/24/24 10:24 11:20 11:22 WBC 35.4 H* RBC 5.67 H Hgb 16.2 H Hct 48.2 H MCV 85.0 MCH 28.6 MCHC 33.6 RDW Std Deviation 39.2 RDW Coeff of Consuelo 12.7 Plt Count 448 MPV 10.7 Immature Gran % (Auto) 1.700 H Neut % (Auto) 87.1 H Lymph % (Auto) 3.6 L [place] % (Auto) 7.3 Eos % (Auto) 0.1 Baso % (Auto) 0.2 Absolute Neuts (auto) 30.8 H Absolute Lymphs (auto) 1.29 Nucleated RBC % 0 Differential Comment SCANNED Diff Path Review May foll Sodium 134 L Potassium 3.6 Chloride 99 Carbon Dioxide 30.0 Anion Gap 5 BUN 24 H Creatinine 1.17 H Estim Creat Clear Calc 26.04 Est GFR (MDRD) Af Amer 56 L Est GFR (MDRD) Non-Af 47 L BUN/Creatinine Ratio 20.5 H Glucose 144 H Lactic Acid 1.4 Calcium 9.8 Total Bilirubin 0.80 AST 19 ALT 48 Alkaline Phosphatase 83 Total Protein 7.1 Albumin 3.4 Globulin 3.7 Albumin/Globulin Ratio 0.9 Lipase 10 L Urine Color Yellow Urine Clarity Clear Urine pH 6.0 Ur Specific [place] 1.015 Urine Protein 15 H Urine Glucose (UA) Normal Urine Ketones Negative Urine Occult Blood 10 H Urine Nitrite Negative Urine Bilirubin Negative Urine Urobilinogen 1 H Ur Leukocyte Esterase Negative Urine RBC 0-5 SEEN Urine WBC 0-5 SEEN Ur Squamous Epith Cells 0 SEEN Urine Bacteria 0 SEEN Urine Mucus 0 SEEN Radiography Diagnostic Testing: Clinical Impression(s) from Imaging Studies Abdomen/Pelvis CT 06/24/24 10:43 IMPRESSION: 1. Mild intramural edema in the rectal wall and proximal sigmoid colon without associated diverticulosis. This may be secondary to mild proctitis and mild colitis. Proctoscopy and colonoscopy will be helpful. 2. No bowel obstruction, mass or lymphadenopathy in the abdomen and pelvis. 3. Mild dilatation of the common bile is most likely related to post cholecystectomy. No intrahepatic biliary ductal dilatation. 4. 3 cm nonenhancing low-attenuation lesion in segment 2 of the liver parenchyma with CT number of 10.29 Hounsfield units. ACR White Paper guidelines (Jael, et al. JACR 2017; 14(11):9901-0654.) suggest no follow-up is necessary. Electronically Signed: Luisito Meehan MD at 12:15 EDT , Discharge Plan Disposition Disposition: Acute Care Hospital [facility] Discharge Date/Time: 06/24/24 14:30
[2024-06-24] MEDS: Morphine 2 MG/ML Syringe IV ×2 (11:01→12:31)
[2024-06-24] MEDS: Ondansetron 4 MG/2 ML Vial IV (11:01)
[2024-06-24 11:03] LABS: Absolute Lymphocyte Count 1.29 X10^3/uL (0.83-4.51); Absolute Neutrophil Count 30.8 X10^3/uL (2.0-7.7); Basophil# 0.08 X10^3/uL; Basophil% 0.2 % (0-1); Eosinophil# 0.05 X10^3/uL; Eosinophils% 0.1 % (0-5); Hematocrit 48.2 % (37-47); Hemoglobin 16.2 g/dL (12.0-15.0); Lymphocyte # 1.29 X10^3/ul (0.83-4.51); Lymphocyte % 3.6 % (19-41); Mean Corp Hgb Conc 33.6 g/dL (32-36); Mean Corpuscular Hgb 28.6 pg (27.0-32.0); Mean Platelet Vol. 10.7 fl (6.2-12.0); Monocyte% 7.3 % (0-10); NRBC Flagged by Analyzer 0 % (0-5); Neutrophil # 30.82 X10^3/uL (2.7-7.7); Neutrophil % 87.1 % (47-70); POSITIVE COUNT YES; POSITIVE DIFFERENTIAL YES; Platelet Count 448 K/mm3 (150-450); RBC Distribution Width CV 12.7 % (11.6-14.6); RBC Distribution Width SD 39.2 fl (35.1-43.9); Red Blood Count 5.67 M/mm3 (4.2-5.4)
[2024-06-24 11:10] LABS: Differential Indicated SCAN CRITERIA MET; White Blood Count 35.4 K/mm3 (4.4-11.0)
[2024-06-24 11:19] LABS: ALB/GLOB Ratio 0.9 RATIO (0.9-2.4); AST(SGOT) 19 U/L (15-37); Alanine Aminotransfer ALT/SGPT 48 U/L (13-56); Albumin, Serum 3.4 g/dL (3.2-5.0); Alkaline Phosphatase 83 U/L (45-117); Anion Gap 5 (5-15); BUN 24 mg/dL (7-18); BUN/Creat Ratio 20.5 RATIO (10-20); Calcium,Total 9.8 mg/dL (8.5-10.1); Chloride 99 mmol/L (98-107); Creatinine, Serum 1.17 mg/dL (0.55-1.02); EST Glomerular Filtration Rate 47 mL/min (>60); Est Glom Filt Rate - Afr Amer 56 mL/min (>60); Estimated Creatinine Clearance 26.04 ml/min; Globulin 3.7 g/dL (2.2-4.2); Glucose 144 mg/dL (74-106); Lipase 10 U/L (13-75); Potassium 3.6 mmol/L (3.5-5.1); Protein, Total 7.1 g/dL (6.4-8.2); Sodium Level 134 mmol/L (136-145)
[2024-06-24 11:48] LABS: Differential Comment SCANNED
[2024-06-24 11:51] LABS: Bacteria 0 SEEN /hpf (None Seen); Mucous, Urine 0 SEEN /hpf (<or=2+); Squamous Epithelial Cells - UA 0 SEEN /hpf (5-10)
[2024-06-24 11:57] LABS: Color, Urine Yellow (Yellow); Glucose, Dipstick Normal (Normal); Ketone-Dipstick Negative (Negative); Leukocyte Esterase-Dipstick Negative /ul (Negative); Nitrite-Dipstick Negative (Negative); Occult Blood-Urine 10 /ul (Negative); Protein-Dipstick 15 mg/dl (Negative); Specific Gravity, Urine 1.015 (1.002-1.030); Urine Bilirubin Dipstick Negative (Negative); Urine Clarity Clear (Clear); Urine Urobilinogen 1 mg/dl (Normal)
[2024-06-24 12:02] VITALS: BP 163/65; PULSE 67; RESP 17; O2SAT 96
[2024-06-24 12:03] LABS: Red Blood Cells-Urine 0-5 SEEN /hpf (0-5); White Blood Cells 0-5 SEEN /hpf (0-5)
[2024-06-24 12:06] LABS: Lactic Acid 1.4 mmol/L (0.4-1.9)
[2024-06-24] MEDS: Piperacil/Tazobactam 3.375 GM in 0.9% Normal Saline (50mL MB+) 50 ML IV ×2 (12:31→22:54)
--- NOTE | 2024-06-24 12:38 | HP.PCM_ITS ---
HPI - General General Date of Admission: 06/24/24 Date of Service: 06/24/24 Chief Complaint: abdominal pain HPI Narrative PETER MARIEE, is a 88 F with a PMH as outlined who presents via the ED on 06/24/2024 with a complaint of abdominal pain. She last had a bowel movement 3 days prior to admission, and she subsequently developed lower abdominal pain with constipation. She took stool softeners and enemas with no relief. Her abdominal pain worsened so she wnt in to the ED. She denied any nausea or vomiting, fever, chills or shortness of breath or any other symptoms. Review of systems was otherwise negative. Vitals in the ED were BP of 140/63, RI of 78, RR of 16 and temp of 98.1F. She was saturating at 99% on room air. CBC showed hb of 16.2, wbc of 35.4 and platelets of 448. Chemistry shows sodium of 134, creatinine of 1.17, potassium of 3.6 and bicarb of 30. Urinalysis showed no evidence of UTI. CT of the abdomen and pelvis showed mild intramural edema in the rectal wall and proximal sigmoid colon without associated diverticulosis which may be secondary to mild proctitis and mild colitis with no bowel obstruction, mass or lymphadenopathy in the abdomen and pelvis with mild dilatation of the common bile duct likely due to postcholecystectomy. She has been admitted to be managed for acute colitis. [facility] Medical History (Updated 06/24/24 @ 14:30 by Heather Juan) Myocardial infarct Hypertension Greater trochanteric bursitis of right hip Trochanteric bursitis of right hip Essential (primary) hypertension GERD (gastroesophageal reflux disease) Osteopenia Gallstones Back problem Generalized osteoarthrosis of multiple sites Atherosclerotic heart disease of [place] coronary artery without angina pectoris HLD (hyperlipidemia) Home Medications ?Medication ?Instructions ?Recorded ?Last Taken ?Type aspirin 81 mg tablet,delayed 81 mg PO QDAY 01/24/18 06/23/24 History release folic acid 800 mcg tablet 0.8 mg PO DAILY 01/09/20 06/23/24 History glucosamine-chondroitin 250 mg-200 1 tab PO DAILY 01/09/20 06/23/24 History mg tablet (Osteo Bi-Flex) omeprazole 20 mg capsule,delayed 20 mg PO DAILY 01/09/20 06/23/24 History release rosuvastatin 20 mg tablet 20 mg PO QHS 02/26/23 06/22/24 History acetaminophen 500 mg tablet 500 mg PO BID 02/11/24 06/23/24 History (Tylenol Extra Strength) cholecalciferol (vitamin D3) 25 25 mcg PO DAILY 02/11/24 06/23/24 History mcg (1,000 unit) tablet ibandronate 150 mg tablet 150 mg PO QMONTH 02/11/24 05/28/24 History atenolol 25 mg tablet 25 mg PO QDAY #90 tabs 05/04/24 06/23/24 Rx amlodipine 10 mg tablet 10 mg PO DAILY #90 tabs 05/25/24 06/23/24 Rx calcium carbonate 1,000 mg PO DAILY 06/24/24 06/23/24 History omega 3 350 mg-dha 235 mg-epa 90 1 cap PO DAILY 06/24/24 06/23/24 History mg-fish oil 597 mg capsule,delay rel ([place]-3) turmeric 400 mg capsule 400 mg PO DAILY 06/24/24 06/23/24 History vitamin B comp and C no.3 15 mg-10 1 cap PO DAILY 06/24/24 06/23/24 History mg-50 mg-5 mg-300 mg capsule (B Complex Plus Vitamin C) Allergy/AdvReac Type Severity Reaction Status Date / Time No Known Allergies Allergy Verified 02/11/24 10:53 Family History Mother Cancer Ovarian cancer Heart disease Breast cancer Hypertension Valvular heart disease Father Cancer throat cancer Asthma Sister Breast cancer Daughter Cancer Surgical History (Updated 06/24/24 @ 14:30 by Heather Juan) History of coronary artery stent placement History of left heart catheterization (01/22/20) History of coronary angioplasty (08/1999) 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) H/O left breast biopsy History of ovarian cystectomy History of appendectomy Hx of cholecystectomy H/O: hysterectomy Social History Smoking Status: Never smoker alcohol intake: current alcohol intake frequency: holidays/special occasions only Alcohol type: wine substance use type: does not use caffeine: No ROS Constitutional Constitutional: Reports fatigue, malaise and weakness; Denies anorexia, chills or fever(s) Eyes Eyes: Denies change in vision ENT HEENT: Denies dysphagia, headache(s), hearing loss, nasal congestion, sore throat or throat swelling Cardiovascular Cardiovascular: Denies chest pain, edema, orthopnea, palpitations, paroxysmal nocturnal dyspnea or syncope Respiratory/Chest Respiratory/Chest: Denies cough, shortness of breath at rest or shortness of breath with exertion Gastrointestinal Gastrointestinal: Reports abdominal pain; Denies constipation, diarrhea, dyspepsia or melena Genitourinary Genitourinary: Denies dysuria or hematuria Musculoskeletal Musculoskeletal: Denies back pain, joint pain or muscle weakness Neurologic Neurologic: Denies confusion, dizziness or focal weakness Psychiatric Psychiatric: Denies anxiety Vital Signs Vital Signs Vital Signs: 06/24/24 10:02 Temperature 98.1 F Temperature Source Oral Pulse Rate 78 Respiratory Rate 16 Blood Pressure 140/63 H Blood Pressure Mean 88 Pulse Ox 99 Oxygen Delivery Method Room Air Weight Weight: 120 lb Body Mass Index (BMI) 22.6 Physical Exam Const alert, oriented x3 and no apparent distress General Appearance: cooperative HEENT normocephalic, head/scalp atraumatic, moist oral mucous membranes and oropharynx normal Eyes PERRL and EOMs intact bilaterally Neck no lymphadenopathy and supple Lymph Lymphatic: no lymphadenopathy noted and no lymphedema noted Resp normal respiratory effort, normal air movement and clear to auscultation bilaterally Cardio regular rate, regular rhythm, S1 normal heart sound, S2 normal heart sound and no murmurs GI normal to inspection, nondistended, normoactive bowel sounds GI Narrative: mild tenderness in the lower abdomen, no guarding or rebound tenderness. Extremity normal capillary refill, no clubbing, cyanosis or edema and no calf tenderness General Extremity: no tenderness to palpation of joints or extremities Skin General Skin Exam: no breakdown Neuro CN's II-XII intact bilaterally, no focal motor deficits, no sensory deficits noted and deep tendon reflexes 2+ bilaterally Motor Exam: strength 5/5 throughout and general weakness Psych thought process normal, cooperative and affect normal Appearance: appropriate Results Lab / Micro Data 06/24/24 10:24 06/24/24 10:24 Labs: Laboratory Results - last 24 hr 06/24/24 10:24: WBC 35.4 H*, RBC 5.67 H, Hgb 16.2 H, Hct 48.2 H, MCV 85.0, MCH 28.6, MCHC 33.6, RDW Std Deviation 39.2, RDW Coeff of [place] 12.7, Plt Count 448, MPV 10.7, Immature Gran % (Auto) 1.700 H, Neut % (Auto) 87.1 H, Lymph % (Auto) 3.6 L, [place] % (Auto) 7.3, Eos % (Auto) 0.1, Baso % (Auto) 0.2, Absolute Neuts (auto) 30.8 H, Absolute Lymphs (auto) 1.29, Nucleated RBC % 0, Differential Comment SCANNED, Diff Path Review January, Sodium 134 L, Potassium 3.6, Chloride 99, Carbon Dioxide 30.0, Anion Gap 5, BUN 24 H, Creatinine 1.17 H, Estim Creat Clear Calc 26.04, Est GFR (MDRD) Af Amer 56 L, Est GFR (MDRD) Non-Af 47 L, BUN/Creatinine Ratio 20.5 H, Glucose 144 H, Calcium 9.8, Total Bilirubin 0.80, AST 19, ALT 48, Alkaline Phosphatase 83, Total Protein 7.1, Albumin 3.4, Globulin 3.7, Albumin/Globulin Ratio 0.9, Lipase 10 L 06/24/24 11:20: Lactic Acid 1.4 06/24/24 11:22: Urine Color Yellow, Urine Clarity Clear, Urine pH 6.0, Ur Specific [place] 1.015, Urine Protein 15 H, Urine Glucose (UA) Normal, Urine Ketones Negative, Urine Occult Blood 10 H, Urine Nitrite Negative, Urine Bilirubin Negative, Urine Urobilinogen 1 H, Ur Leukocyte Esterase Negative, Urine RBC 0-5 SEEN, Urine WBC 0-5 SEEN, Ur Squamous Epith Cells 0 SEEN, Urine Bacteria 0 SEEN, Urine Mucus 0 SEEN Imaging Radiology Impression Abdomen/Pelvis CT 06/24/24 10:43 IMPRESSION: 1. Mild intramural edema in the rectal wall and proximal sigmoid colon without associated diverticulosis. This may be secondary to mild proctitis and mild colitis. Proctoscopy and colonoscopy will be helpful. 2. No bowel obstruction, mass or lymphadenopathy in the abdomen and pelvis. 3. Mild dilatation of the common bile is most likely related to post cholecystectomy. No intrahepatic biliary ductal dilatation. 4. 3 cm nonenhancing low-attenuation lesion in segment 2 of the liver parenchyma with CT number of 10.29 Hounsfield units. ACR White Paper guidelines (Jael, et al. JACR 2017; 14(11):5274-6036.) suggest no follow-up is necessary. Electronically Signed: Luisito Meehan MD at 12:15 EDT , Assessment & Plan Assessment/Plan (1) Colitis: PLAN: Plan #Acute colitis * Admitted with a complaint of abdominal pain which is cramping in nature with no aggravating or relieving factors. Symptoms have been going on for couple of days. * CT of the abdomen and pelvis done in the ED showed mild intramural edema in the rectal and proximal sigmoid colon without assisted diverticulosis may be due to mild proctitis and mild colitis. * Started on IV Zosyn. Keep n.p.o. for now and hydrate gently with IV fluids. * IV morphine and p.o. oxycodone as needed for pain. * Consult GI for possible colonoscopy * #History of CAD s/p CABG: On aspirin and statin #Benign essential hypertension: On amlodipine and atenolol #Hyperlipidemia: On statin DVT prophylaxis: Lovenox CODE STATUS: Full code * Patient counseled extensively about different types of CODE STATUS including full code, DNR CCA and DNR CCA. * Patient elects to be full code. * Total myke-eu-bkbo time 17 minutes. Charges/Coding Visit Charges Inpatient E&M: 85746 Init Hosp L3 Procedures Hospitalists Procedures: 93100 Advncd Care Plan 30 Min
[2024-06-24] MEDS: 0.9% Normal Saline (1000mL) 1,000 ML 999 ML IV (13:16)
[2024-06-24 14:15] VITALS: PULSE 69; RESP 16; O2SAT 95
[2024-06-24 14:25] VITALS: BMI 23.0
[2024-06-24 14:35] VITALS: BP 137/43; PULSE 69; RESP 16; TEMP 36.5; O2SAT 95
[2024-06-24] MEDS: oxyCODONE 5 MG Tablet PO ×2 (15:53→22:55)
[2024-06-24] MEDS: 0.9% Normal Saline (1000mL) 1,000 ML 125 ML IV (15:53)
[2024-06-24 16:42] VITALS: BP 137/43; PULSE 69; RESP 16; TEMP 36.5; O2SAT 95
[2024-06-24] MEDS: Atorvastatin Calcium 40 MG Tablet PO (22:56)
[2024-06-24 23:01] VITALS: BP 126/54; PULSE 67; RESP 18; TEMP 36.8; O2SAT 99
[2024-06-25 03:54] VITALS: BP 122/58; PULSE 58; RESP 18; TEMP 37.2; O2SAT 94
[2024-06-25] MEDS: 0.9% Normal Saline (1000mL) 1,000 ML 125 ML IV (03:58)
[2024-06-25] MEDS: Piperacil/Tazobactam 3.375 GM in 0.9% Normal Saline (50mL MB+) 50 ML IV ×3 (05:24→21:07)
[2024-06-25 06:35] LABS: Absolute Lymphocyte Count 2.12 X10^3/uL (0.83-4.51); Absolute Neutrophil Count 13.3 X10^3/uL (2.0-7.7); Basophil# 0.03 X10^3/uL; Basophil% 0.2 % (0-1); Eosinophil# 0.23 X10^3/uL; Eosinophils% 1.3 % (0-5); Hematocrit 35.5 % (37-47); Hemoglobin 11.8 g/dL (12.0-15.0); Lymphocyte # 2.12 X10^3/ul (0.83-4.51); Lymphocyte % 12.2 % (19-41); Mean Corp Hgb Conc 33.2 g/dL (32-36); Mean Corpuscular Hgb 28.7 pg (27.0-32.0); Mean Corpuscular Volume 86.4 fL (81-99); Mean Platelet Vol. 10.5 fl (6.2-12.0); Monocyte# 1.47 X10^3/uL; Monocyte% 8.4 % (0-10); NRBC Flagged by Analyzer 0 % (0-5); Neutrophil # 13.28 X10^3/uL (2.7-7.7); Neutrophil % 76.2 % (47-70); Platelet Count 273 K/mm3 (150-450); RBC Distribution Width CV 13.2 % (11.6-14.6); RBC Distribution Width SD 41.3 fl (35.1-43.9); Red Blood Count 4.11 M/mm3 (4.2-5.4); White Blood Count 17.4 K/mm3 (4.4-11.0)
[2024-06-25 06:56] LABS: Anion Gap 4 (5-15); BUN 19 mg/dL (7-18); BUN/Creat Ratio 18.3 RATIO (10-20); Calcium,Total 8.7 mg/dL (8.5-10.1); Chloride 110 mmol/L (98-107); Creatinine, Serum 1.04 mg/dL (0.55-1.02); EST Glomerular Filtration Rate 53 mL/min (>60); Est Glom Filt Rate - Afr Amer 65 mL/min (>60); Glucose 86 mg/dL (74-106); Potassium 3.8 mmol/L (3.5-5.1); Sodium Level 140 mmol/L (136-145)
[2024-06-25] MEDS: amLODIPine 10 MG Tablet PO (09:12)
[2024-06-25] MEDS: Atenolol 25 MG Tablet PO (09:12)
[2024-06-25] MEDS: Aspirin E.C. 81 MG Tablet PO (09:12)
[2024-06-25] MEDS: Cholecalciferol (VIT D3) 25 MCG TABLET (1,000 UNITS) PO (09:12)
[2024-06-25] MEDS: Enoxaparin 30 MG/0.3 ML Syringe SC (09:12)
[2024-06-25] MEDS: Folic Acid 1 MG Tablet PO (09:12)
[2024-06-25] MEDS: Calcium (Elemental) 500 MG Tablet 1000 MG PO (09:13)
[2024-06-25 09:45] VITALS: BP 109/46; PULSE 73; RESP 16; TEMP 36.7; O2SAT 94
[2024-06-25 12:08] VITALS: BP 118/50; PULSE 66; RESP 16; TEMP 36.8; O2SAT 95
--- NOTE | 2024-06-25 12:51 | PN_ITS ---
Subjective Subjective Patient seen and examined. She felt well and had no complaints. Review of systems is otherwise negative. Abodominal cramping has improved markedly and she is willing to try a clear liquid diet. Review of systems is otherwise negative. She has remained hemodynamically stable. WBC today is down to 17.4. Review of systems is otherwise negative. Objective Data Objective Data Vital Signs: Vital Signs Temp Pulse Resp BP Pulse Ox O2 Del Method 98.3 F 66 16 118/50 L 95 Room Air 06/25/24 12:08 06/25/24 12:08 06/25/24 12:08 06/25/24 12:08 06/25/24 12:08 06/25/24 12:08 Oxygen Delivery Method Room Air Weight: 122 lb Body Mass Index (BMI) 23.0 Intake & Output: Intake and Output for Last 24 Hours 06/23/24 06/24/24 06/25/24 23:59 23:59 23:59 Intake Total 2049 1100 / 1100 Output Total 2 / Balance 2049 1098 / 1098 Lab / Micro Data 06/25/24 05:50 06/25/24 05:50 Labs: Laboratory Results - last 24 hr 06/25/24 05:50: WBC 17.4 H, RBC 4.11 L, Hgb 11.8 L, Hct 35.5 L, MCV 86.4, MCH 28.7, MCHC 33.2, RDW Std Deviation 41.3, RDW Coeff of Consuelo 13.2, Plt Count 273, MPV 10.5, Immature Gran % (Auto) 1.700 H, Neut % (Auto) 76.2 H, Lymph % (Auto) 12.2 L, Grayson % (Auto) 8.4, Eos % (Auto) 1.3, Baso % (Auto) 0.2, Absolute Neuts (auto) 13.3 H, Absolute Lymphs (auto) 2.12, Nucleated RBC % 0, Sodium 140, Potassium 3.8, Chloride 110 H, Carbon Dioxide 26.0, Anion Gap 4 L, BUN 19 H, C reatinine 1.04 H, Estim Creat Clear Calc 29.30, Est GFR (MDRD) Af Amer 65, Est GFR (MDRD) Non-Af 53 L, BUN/Creatinine Ratio 18.3, Glucose 86, Calcium 8.7 Physical Exam Const alert, oriented x3 and no apparent distress General Appearance: cooperative HEENT normocephalic, head/scalp atraumatic, moist oral mucous membranes and oropharynx normal Eyes PERRL and EOMs intact bilaterally Neck no lymphadenopathy and supple Lymph Lymphatic: no lymphadenopathy noted and no lymphedema noted Resp normal respiratory effort, normal air movement and clear to auscultation bilaterally Cardio regular rate, regular rhythm, S1 normal heart sound, S2 normal heart sound and no murmurs GI normal to inspection, nondistended, normoactive bowel sounds GI Narrative: abdomen Extremity normal capillary refill, no clubbing, cyanosis or edema and no calf tenderness General Extremity: no tenderness to palpation of joints or extremities Skin General Skin Exam: no breakdown Neuro CN's II-XII intact bilaterally, no focal motor deficits, no sensory deficits noted and deep tendon reflexes 2+ bilaterally Motor Exam: strength 5/5 throughout and general weakness Psych thought process normal, cooperative and affect normal Appearance: appropriate Assessment & Plan Assessment/Plan (1) Colitis: PLAN: Plan #Acute colitis * Admitted with a complaint of abdominal pain which is cramping in nature with no aggravating or relieving factors. * abdominal pain has improved markedly today. Wbc has trended down from 35 to 17.4. * CT of the abdomen and pelvis done in the ED showed mild intramural edema in the rectal and proximal sigmoid colon without associated diverticulosis may be due to mild proctitis and mild colitis. * on IV zosyn. start on clear liquid diet and advance as tolerated. * IV morphine and p.o. oxycodone as needed for pain. * Consult GI for possible colonoscopy. Await recs. * #CKD II: Cr is 1.04. Was 1.17 on admissin. Baseline Cr is 1.34. Encourage oral hydration. #History of CAD s/p CABG: On aspirin and statin #Benign essential hypertension: On amlodipine and atenolol #Hyperlipidemia: On statin DVT prophylaxis: Lovenox CODE STATUS: Full code * Charges/Coding Visit Charges Inpatient E&M: 22306 Subs Hosp L2
[2024-06-25 16:08] VITALS: BP 121/60; PULSE 70; RESP 16; TEMP 37.1; O2SAT 94
[2024-06-25] MEDS: Atorvastatin Calcium 40 MG Tablet PO (21:05)
[2024-06-25 21:17] VITALS: BP 121/67; PULSE 66; RESP 16; TEMP 36.7; O2SAT 96
[2024-06-26 03:34] VITALS: BP 118/68; PULSE 72; RESP 16; TEMP 36.9; O2SAT 98
[2024-06-26] MEDS: Piperacil/Tazobactam 3.375 GM in 0.9% Normal Saline (50mL MB+) 50 ML IV (05:51)
[2024-06-26 07:23] LABS: Absolute Neutrophil Count 9.9 X10^3/uL (2.0-7.7); Basophil# 0.05 X10^3/uL; Basophil% 0.4 % (0-1); Eosinophil# 0.32 X10^3/uL; Eosinophils% 2.4 % (0-5); Hemoglobin 12.2 g/dL (12.0-15.0); Lymphocyte % 10.7 % (19-41); Mean Corpuscular Hgb 28.5 pg (27.0-32.0); Mean Corpuscular Volume 86.4 fL (81-99); Mean Platelet Vol. 10.5 fl (6.2-12.0); Monocyte# 1.22 X10^3/uL; Monocyte% 9.3 % (0-10); NRBC Flagged by Analyzer 0 % (0-5); Neutrophil # 9.92 X10^3/uL (2.7-7.7); Neutrophil % 75.5 % (47-70); Platelet Count 269 K/mm3 (150-450); RBC Distribution Width SD 40.9 fl (35.1-43.9); Red Blood Count 4.28 M/mm3 (4.2-5.4); White Blood Count 13.1 K/mm3 (4.4-11.0)
[2024-06-26 07:54] LABS: Anion Gap 6 (5-15); BUN 12 mg/dL (7-18); BUN/Creat Ratio 11.2 RATIO (10-20); Calcium,Total 9.2 mg/dL (8.5-10.1); Chloride 109 mmol/L (98-107); Creatinine, Serum 1.07 mg/dL (0.55-1.02); EST Glomerular Filtration Rate 52 mL/min (>60); Est Glom Filt Rate - Afr Amer 62 mL/min (>60); Estimated Creatinine Clearance 28.48 ml/min; Glucose 92 mg/dL (74-106); Potassium 3.5 mmol/L (3.5-5.1); Sodium Level 142 mmol/L (136-145)
[2024-06-26] MEDS: Calcium (Elemental) 500 MG Tablet 1000 MG PO (08:30)
[2024-06-26] MEDS: Cholecalciferol (VIT D3) 25 MCG TABLET (1,000 UNITS) PO (08:31)
[2024-06-26] MEDS: Folic Acid 1 MG Tablet PO (08:31)
[2024-06-26] MEDS: amLODIPine 10 MG Tablet PO (08:31)
[2024-06-26] MEDS: Atenolol 25 MG Tablet PO (08:31)
[2024-06-26] MEDS: Aspirin E.C. 81 MG Tablet PO (08:31)
[2024-06-26] MEDS: Enoxaparin 30 MG/0.3 ML Syringe SC (08:31)
[2024-06-26 08:53] VITALS: BP 132/60; PULSE 74; RESP 16; TEMP 36.8; O2SAT 96
--- NOTE | 2024-06-26 10:57 | CASEMGMT ---
VALERI VERDUZCO Assessment Face to Face with patient for initial transition planning/care coordination assessment. VALERI VERDUZCO introduced self and role at [facility], pt voices understanding. Pt is A&Ox4 and is resting comfortably in bed and is calm. Pt at bedside. Care providers, pharmacy, and demographics verified. Admitting dx: Acute Colitis LACE Strata: 2 PCP: Rica Her Specialists: [place] ([facility]). [facility] is consulted Preferred Pharmacy: [facility] Insurance: [employer] A/B, [employer] Commercial Prescription Benefit: Yes LNOK: Guthrie Bobo (H), Janet Schmidt (Stephanie) Living Arrangements: Pt lives with her in a 2 story home with a FFSU and one step to enter ADLs/IADLs: Ind Transportation: Self, DME: [employer]. Denies all other DME uses or needs HHC/SNF: Denies History or needs Pt?s goal: Home Plan: Home no needs. 6-Click is 24. Pt denies the need for HH or OP Tx. Pt is refusing PT here at [facility]. Pt states that she feels safe discharging home with her once she is medically ready. At this time, the pt is awaiting GI consult to see the pt for potential intervention. CM to follow. Olena Hilliard RN, CM
[2024-06-26 11:03] LABS: Pathologist Review Reviewed
[2024-06-26] MEDS: MENTHOL 226.8 GM JAR 1 APPLIC TOPICAL (12:48)
[2024-06-26 13:56] VITALS: BP 109/46; PULSE 68; RESP 16; TEMP 36.8; O2SAT 96
--- NOTE | 2024-06-26 15:03 | DS.PCM_ITS ---
Providers Date of Admission: 06/24/24 Date of Discharge: 06/26/24 Primary Care Physician: Dr. Rica Her MD Reason For Visit: ACUTE COLITIS Diagnosis Discharge Diagnosis (1) Colitis: Status: Acute Code(s): K52.9 - Noninfective gastroenteritis and colitis, unspecified Medications at Discharge Home Medications aspirin 81 mg tablet,delayed release 81 mg PO QDAY 01/24/18 folic acid 800 mcg tablet 0.8 mg PO DAILY 01/09/20 glucosamine-chondroitin 250 mg-200 mg tablet (Osteo Bi-Flex) 1 tab PO DAILY 01/09/20 omeprazole 20 mg capsule,delayed release 20 mg PO DAILY 01/09/20 rosuvastatin 20 mg tablet 20 mg PO QHS 02/26/23 acetaminophen 500 mg tablet (Tylenol Extra Strength) 500 mg PO BID 02/11/24 cholecalciferol (vitamin D3) 25 mcg (1,000 unit) tablet 25 mcg PO DAILY 02/11/24 ibandronate 150 mg tablet 150 mg PO QMONTH 02/11/24 atenolol 25 mg tablet 25 mg PO QDAY #90 tabs 05/04/24 amlodipine 10 mg tablet 10 mg PO DAILY #90 tabs 05/25/24 calcium carbonate 1,000 mg PO DAILY 06/24/24 omega 3 350 mg-dha 235 mg-epa 90 mg-fish oil 597 mg capsule,delay rel ([place]-3) 1 cap PO DAILY 06/24/24 turmeric 400 mg capsule 400 mg PO DAILY 06/24/24 vitamin B comp and C no.3 15 mg-10 mg-50 mg-5 mg-300 mg capsule (B Complex Plus Vitamin C) 1 cap PO DAILY 06/24/24 Hospital Course Operations None Procedures - (CT abdomen and pelvis) Summary of Care Provided Minutes Spent on Discharge: 38 Hospital Course: Mrs. Broussard is an 88-year-old white female who presented to the emergency department at [facility] on 06/24/2024 with a chief complaint of abdominal pain. Patient reported on presentation that she had a bowel movement about 3 days prior to admission and subsequently had developed lower abdominal pain on the left side and constipation. She reported that she took stool softeners and an enema with no relief. She indicated her abdominal pain worsen show she presented to the emergency department. She denied any other associated symptoms. Vital signs on presentation were overtly unremarkable. She was afebrile. CBC showed a marked severe leukocytosis with a white count of 35.4 and a left shift. Chemistries were overtly unremarkable. Urinalysis was unremarkable for signs of urinary tract infection. CT of the abdomen pelvis showed mild intramural edema of the rectal wall and proximal sigmoid colon without associated diverticulosis concerning for mild proctitis and colitis with no bowel obstruction, mass, or lymphadenopathy. She was admitted to the medical floor placed on IV antibiotics as well as IV fluids and antiemetics. Inpatient antibiotics consisted of Zosyn. Patient's pain was slowly improving and she was started on oral diet with clear liquids on 06/25/2024 with continuation of improvement through the at which time we tried her on regular food. She tolerated this well without any problems. Given her response to oral antibiotics and her significant decrease in white count from 35.4-13.1 on 06/26/2024 it was felt she was appropriate for discharge. Case was discussed with gastroenterology and acute inpatient colonoscopy was deferred and outpatient colonoscopy was recommended. This was discussed with the patient she voiced understanding. We will discharge her to complete antibiotic course for 14 days with Cipro and Flagyl. If she does not tolerate these medications well of asked her to call her primary care physician for an antibiotic adjustment. This too was discussed with her primary care physician prior to discharge. She has an appointment to see Dr. Choi and his associates on 07/12/2024 at 9 AM at which time they should be able to schedule for an outpatient colonoscopy. Prescriptions for her medications were sent to local pharmacy prior to discharge and she was discharged home in stable condition on 06/26/2024. Discharge diagnoses: Acute colitis/proctitis Leukocytosis Mild dehydration Hyperglycemia-nonfasting CAD Essential hypertension Osteoporosis GERD Hyperlipidemia Physical Exam Const alert, oriented x3, no apparent distress, average body habitus, no limitations, healthy appearing and well nourished Constitutional Narrative: Very pleasant, elderly, white female who appears younger than stated age, sitting up in bed, at bedside, nursing at bedside, patient appears comfortable and nontoxic General Appearance: cooperative, comfortable, well kempt and well developed Orientation / Consciousness: awake, oriented to person, oriented to place and oriented to time Exam Limitations: no limitations HEENT normocephalic, head/scalp atraumatic, hearing grossly normal bilaterally and moist oral mucous membranes HEENT Narrative: Mallampati 2, no thrush Eyes EOMs intact bilaterally and conjunctivae normal Eyes Narrative: No scleral icterus Neck no lymphadenopathy and supple Neck Narrative: Trachea midline, no thyroid enlargement Resp normal respiratory effort, no retractions, no use of accessory muscles and clear to auscultation bilaterally Auscultation: Negative for rales, rhonchi or wheezes Cardio regular rate, regular rhythm, S1 normal heart sound, S2 normal heart sound, no murmurs, no rub, no gallops and no clicks GI normal to inspection, nondistended, normoactive bowel sounds and soft to palpation GI Narrative: Very minimal tenderness in the very left lower quadrant-patient reports that significantly improved Extremity no clubbing, cyanosis or edema Extremity Narrative: Pedal and radial pulses are 2+ Skin no rashes or lesions noted, no wounds, skin turgor normal and no jaundice Neuro oriented x3, moves all extremities and no focal motor deficits Speech: speech normal Psych affect normal Psych Narrative: Very pleasant, interacts appropriately Weight / BMI Weight Weight: 55.338 kg Body Mass Index (BMI) 23.0 ABG / Lab / Microbiology Data 06/26/24 06:48 06/26/24 06:48 Laboratory: Laboratory Results - last 24 hr 06/24/24 10:24: Diff Path Review Reviewed 06/26/24 06:48: WBC 13.1 H, RBC 4.28, Hgb 12.2, Hct 37.0, MCV 86.4, MCH 28.5, MCHC 33.0, RDW Std Deviation 40.9, RDW Coeff of Consuelo 13.0, Plt Count 269, MPV 10.5, Immature Gran % (Auto) 1.700 H, Neut % (Auto) 75.5 H, Lymph % (Auto) 10.7 L, Mcclain % (Auto) 9.3, Eos % (Auto) 2.4, Baso % (Auto) 0.4, Absolute Neuts (auto) 9.9 H, Absolute Lymphs (auto) 1.40, Nucleated RBC % 0, Sodium 142, Potassium 3.5, Chloride 109 H, Carbon Dioxide 27.0, Anion Gap 6, BUN 12, Creatinine 1.07 H , Estim Creat Clear Calc 28.48, Est GFR (MDRD) Af Amer 62, Est GFR (MDRD) Non-Af 52 L, BUN/Creatinine Ratio 11.2, Glucose 92, Calcium 9.2 D/C Instructions Discharge Diet: Low fat / Low cholesterol Discharge Activity: Return to Normal Activity Meaningful Use Info Meaningful Use Meaningful Use Diagnoses (Choose all that apply): None applicable Ischemic Stroke Statin Dosing Therapy Reference: STATIN DOSE THERAPY REFERENCE: * Patients > 75 years receive moderate or high dose statin therapy. * Patients 75 years or YOUNGER should receive HIGH intensity statin dose unless contraindicated. You will be required to document reason for non-treatment if statin daily dose does not meet guidelines. HIGH DOSE STATIN THERAPY DAILY Atorvastatin > than or = to 40 mg Rosuvastatin > than or = to 20 mg Amlodipine + Atorvastatin > than or = to 2.5/40 mg Ezetimibe + Simvastatin 10/80 mg Simvastatin 80mg Discharge Plan Admission Admit Date/Time: 06/24/24 12:56 Primary Reason for Your Visit: Abdominal pain Attending Provider: Adelaida Mancini Primary Care Provider: Rica Her Consulting Providers: Codie Hernandez Instructions Additional Instructions / Restrictions: 1. Please follow-up with Dr. Her in 1 week and if you have issues with the antibiotics please call her immediately. I did discuss the antibiotic choice with her at discharge and she agreed that the current regimen that we ordered would be best however if you do not tolerate it she will change it 2. Please complete the antibiotics as noted below 3. Please follow-up with the special events assistant to be assessed for need of colonoscopy Discharge Orders/Prescriptions Prescriptions: No Action aspirin 81 mg tablet,delayed release (DR/EC) 81 mg PO QDAY omeprazole 20 mg capsule,delayed release(DR/EC) 20 mg PO DAILY folic acid 800 mcg tablet 0.8 mg PO DAILY glucosamine-chondroitin [Osteo Bi-Flex] 250-200 mg tablet 1 tab PO DAILY rosuvastatin 20 mg tablet 20 mg PO QHS acetaminophen [Tylenol Extra Strength] 500 mg tablet 500 mg PO BID ibandronate 150 mg tablet 150 mg PO QMONTH Rx Instructions: TAKE 2 ONCE MONTHLY ON THE cholecalciferol (vitamin D3) 25 mcg (1,000 unit) tablet 25 mcg PO DAILY calcium carbonate 500 mg calcium (1,250 mg) tablet,chewable 1,000 mg PO DAILY [place]-3 350 mg-235 mg- 90 mg-597 mg capsule,delayed release(DR/EC) 1 cap PO DAILY B Complex Plus Vitamin C 33-66-99-5-300 mg capsule 1 cap PO DAILY Rx Instructions: give with food (meal/snack) turmeric 400 mg capsule 400 mg PO DAILY atenolol 25 mg tablet 25 mg PO QDAY Qty: 90 3RF amlodipine 10 mg tablet 10 mg PO DAILY Qty: 90 4RF Referrals / Follow Up: Rica Her MD [Primary Care Provider] - Within 1 Week Abdi Choi DO [Med Staff - Active Staff] - 07/12/24 9:00 am Disposition Disposition (needs filled in before D/C Order can be placed): Home, Self Care Charges/Coding Visit Charges Inpatient E&M: 91946 Disch Hosp >30min
--- NOTE | 2024-06-26 16:48 | PHA.DC_ITS ---
Pharmacy [place] Med Reconciliation Pharmacy Service has performed discharge medication reconciliation for this patient. Medication education papers prepared, patient discharged when counseling was attempted. Medications reviewed. The patient's discharge medication list was reviewed for discrepancies and discrepancies were resolved. Medications at Discharge Home Medications aspirin 81 mg tablet,delayed release 81 mg PO QDAY 01/24/18 folic acid 800 mcg tablet 0.8 mg PO DAILY 01/09/20 glucosamine-chondroitin 250 mg-200 mg tablet (Osteo Bi-Flex) 1 tab PO DAILY 01/09/20 omeprazole 20 mg capsule,delayed release 20 mg PO DAILY 01/09/20 rosuvastatin 20 mg tablet 20 mg PO QHS 02/26/23 acetaminophen 500 mg tablet (Tylenol Extra Strength) 500 mg PO BID 02/11/24 cholecalciferol (vitamin D3) 25 mcg (1,000 unit) tablet 25 mcg PO DAILY 02/11/24 ibandronate 150 mg tablet 150 mg PO QMONTH 02/11/24 atenolol 25 mg tablet 25 mg PO QDAY #90 tabs 05/04/24 amlodipine 10 mg tablet 10 mg PO DAILY #90 tabs 05/25/24 calcium carbonate 1,000 mg PO DAILY 06/24/24 omega 3 350 mg-dha 235 mg-epa 90 mg-fish oil 597 mg capsule,delay rel ([place]-3) 1 cap PO DAILY 06/24/24 turmeric 400 mg capsule 400 mg PO DAILY 06/24/24 vitamin B comp and C no.3 15 mg-10 mg-50 mg-5 mg-300 mg capsule (B Complex Plus Vitamin C) 1 cap PO DAILY 06/24/24 ciprofloxacin HCl 500 mg tablet (Cipro) 500 mg PO BID #24 tabs 06/26/24 metronidazole 500 mg tablet 500 mg PO Q8H #36 tabs 06/26/24
== END 2024-06-26 16:30 | disposition home or self-care (01) | DRG 392 ==
LOC: ED 12:33 → MS3 13:54
PROVIDERS: Admitting Provider Student in an Organized Health Care Education/Training Program; Emergency Provider Surgery; PCP Internal Medicine; Visit Provider Internal Medicine
DX: K52.9 Noninfective gastroenteritis and colitis, unspecified (principal); E78.5 Hyperlipidemia, unspecified; I10 Essential (primary) hypertension; I25.10 Atherosclerotic heart disease of native coronary artery without angina pectoris; K21.9 Gastro-esophageal reflux disease without esophagitis; K62.89 Other specified diseases of anus and rectum; E86.0 Dehydration; I25.2 Old myocardial infarction; M81.0 Age-related osteoporosis without current pathological fracture; R73.09 Other abnormal glucose; Z95.1 Presence of aortocoronary bypass graft; Z95.5 Presence of coronary angioplasty implant and graft; Z90.49 Acquired absence of other specified parts of digestive tract; Z79.82 Long term (current) use of aspirin; Z79.83 Long term (current) use of bisphosphonates; Z79.899 Other long term (current) drug therapy
CPT/HCPCS: 36415; 73502; 74177; 80048; 80053; 81001; 83605; 83690; 85025; 93880; 99282; 99284; J7030; Q9967; A4216; J2405

== ENCOUNTER → 2024-07-12 | Outpatient (CLI) | payer MEDICARE, OTHER, SELFPAY ==
[2024-07-12 10:27] LABS: Absolute Neutrophil Count 5.4 X10^3/uL (2.0-7.7); Basophil# 0.09 X10^3/uL; Basophil% 1.2 % (0-1); Eosinophils% 1.3 % (0-5); Hemoglobin 13.1 g/dL (12.0-15.0); Lymphocyte % 14.8 % (19-41); Mean Corp Hgb Conc 32.8 g/dL (32-36); Mean Corpuscular Hgb 28.3 pg (27.0-32.0); Mean Corpuscular Volume 86.4 fL (81-99); Mean Platelet Vol. 10.7 fl (6.2-12.0); Monocyte# 0.78 X10^3/uL; Monocyte% 10.5 % (0-10); NRBC Flagged by Analyzer 0 % (0-5); Neutrophil # 5.35 X10^3/uL (2.7-7.7); Neutrophil % 71.8 % (47-70); Platelet Count 215 K/mm3 (150-450); RBC Distribution Width CV 13.7 % (11.6-14.6); Red Blood Count 4.63 M/mm3 (4.2-5.4); White Blood Count 7.5 K/mm3 (4.4-11.0)
== END | disposition home or self-care (01) ==
LOC: LAB 10:01
PROVIDERS: PCP Internal Medicine; Referring Provider Student in an Organized Health Care Education/Training Program; Visit Provider Student in an Organized Health Care Education/Training Program
DX: K52.9 Noninfective gastroenteritis and colitis, unspecified (principal)
CPT/HCPCS: 36415; 85025

== ENCOUNTER → 2024-07-12 | Outpatient (CLI) | payer MEDICARE, OTHER, SELFPAY ==
[2024-07-17 22:07] LABS: Calprotectin, Stool 26 ug/g (0-120)
== END | disposition home or self-care (01) ==
LOC: MTLAB 13:35
PROVIDERS: PCP Internal Medicine; Referring Provider Student in an Organized Health Care Education/Training Program; Visit Provider Student in an Organized Health Care Education/Training Program
DX: K58.9 Irritable bowel syndrome, unspecified (principal)
CPT/HCPCS: 83630; 83993

== ENCOUNTER 2024-09-29 12:52 | Day surgery (SDC) | payer MEDICARE, OTHER, SELFPAY ==
--- NOTE | 2024-09-26 22:20 | PAT.ANESEVAL ---
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 When Was Last Pacemaker Check QUESTION #4 FULL TEXT: You/Your Family Experience fever (hyperthermia) with Anesthesia Last Oral Intake Last Oral intake: Last Oral Intake NPO since Meds taken in AM with sips of water? Meds patient instructed to take am of surgery PONV PONV - wire spring relay adjuster: PONV - wire spring relay adjuster Female Yes 09/26/24 15:07 HX of Motion Sickness No 09/26/24 15:07 HX of N/V After Surgery No 09/26/24 15:07 Non-Smoker Yes 09/26/24 15:07 Duration of Surgery greater No 09/26/24 15:07 than 60 minutes Number of Risk Factors 2 09/26/24 15:07 PONV Score Moderate Risk 09/26/24 15:07 Height & Weight Height & Weight: Anesthesia: Height & Weight Height 5 ft 1 in 06/24/24 14:25 Respiratory Assessment Respiratory Assessment - wire spring relay adjuster: Respiratory Tract Infection Hx - wire spring relay adjuster Hx Respiratory Tract Infection No 09/26/24 15:07 STOP Sleep Apnea STOP Sleep Apnea - wire spring relay adjuster: STOP Sleep Apnea - wire spring relay adjuster Hx Hypertension Yes: CONTROLLED WITH MEDS 09/26/24 15:07 Hx Sleep Apnea No 09/26/24 15:07 CPAP BIPAP Do you snore loudly (louder No 09/26/24 15:07 than talking or can be heard Do you often feel tired/ No 09/26/24 15:07 fatigued/ sleepy during daytime? Has anyone observed you stop No 09/26/24 15:07 breathing during sleep? STOP Results Negative 09/26/24 15:07 QUESTION #5 FULL TEXT : Do you snore loudly (louder than talking or can be heard through closed doors)? 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 Specify any problems Hx of Preganancy in last 3 No 09/26/24 15:07 Months Nurse Filling Out Transfusion [email or web address] 09/26/24 15:07 & Questions: Date: 09/26/24 09/26/24 15:07 Time: 15:10 09/26/24 15:07 Patient unable to answer at this time (ie. confused, unrespo /Reproduction History /Reproductive History - wire spring relay adjuster: /Reproductive Hx- wire spring relay adjuster Hx Now Gestational Age (in weeks): EDC: Hx Hx Para Hx Section SAB PFSH Medical History Wears hearing aid Loss of hearing Wears glasses Cardiology follow-up encounter Myocardial infarct Hypertension Greater trochanteric bursitis of right hip Trochanteric bursitis of right hip Essential (primary) hypertension GERD (gastroesophageal reflux disease) Osteopenia Gallstones Back problem Generalized osteoarthrosis of multiple sites Atherosclerotic heart disease of sax[place] coronary artery without angina pectoris HLD (hyperlipidemia) Home Medications ?Medication ?Instructions ?Recorded ?Last Taken ?Type aspirin 81 mg tablet,delayed 81 mg PO QDAY 01/24/18 06/23/24 History release folic acid 800 mcg tablet 0.8 mg PO DAILY 01/09/20 06/23/24 History glucosamine-chondroitin 250 mg-200 1 tab PO DAILY 01/09/20 06/23/24 History mg tablet (Osteo Bi-Flex) omeprazole 20 mg capsule,delayed 20 mg PO DAILY 01/09/20 06/23/24 History release rosuvastatin 20 mg tablet 20 mg PO QHS 02/26/23 06/22/24 History acetaminophen 500 mg tablet 500 mg PO BID 02/11/24 06/23/24 History (Tylenol Extra Strength) cholecalciferol (vitamin D3) 25 25 mcg PO DAILY 02/11/24 06/23/24 History mcg (1,000 unit) tablet ibandronate 150 mg tablet 150 mg PO QMONTH 02/11/24 05/28/24 History atenolol 25 mg tablet 25 mg PO QDAY #90 tabs 05/04/24 06/23/24 Rx amlodipine 10 mg tablet 10 mg PO DAILY #90 tabs 05/25/24 06/23/24 Rx calcium carbonate 1,000 mg PO DAILY 06/24/24 06/23/24 History vitamin B comp and C no.3 15 mg-10 1 cap PO DAILY 06/24/24 06/23/24 History mg-50 mg-5 mg-300 mg capsule (B Complex Plus Vitamin C) hydrochlorothiazide 25 mg tablet 25 mg PO DAILY 09/26/24 Unknown History Allergy/AdvReac Type Severity Reaction Status Date / Time No Known Allergies Allergy Verified 09/26/24 15:03 Family History (Reviewed 02/11/24 @ 11:03 by Kendall Emanuel SOFTWARE TEST AUTOMATION ENGINEER, SOFTWARE TEST AUTOMATION ENGINEER-C) Mother Cancer Ovarian cancer Heart disease Breast cancer Hypertension Valvular heart disease Father Cancer throat cancer Asthma Sister Breast cancer Daughter Cancer Surgical History History of coronary artery stent placement History of left heart catheterization (01/22/20) History of coronary angioplasty (08/1999) 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) H/O left breast biopsy History of ovarian cystectomy History of appendectomy Hx of cholecystectomy H/O: hysterectomy Social History (Reviewed 02/11/24 @ 11:03 by Kendall Emanuel SOFTWARE TEST AUTOMATION ENGINEER, SOFTWARE TEST AUTOMATION ENGINEER-C) Smoking Status: Never smoker alcohol intake: current alcohol intake frequency: holidays/special occasions only Alcohol type: wine substance use type: does not use caffeine: No Audit: Pertinent Findings Pertinent Findings EKG Perinent findings: January 22, 2020. Sinus bradycardia at 53 bpm. Anterior septal infarct. No significant change from EKG of 2012 Echo (EF%) pertinent findings: November 20, 2014. Ejection fraction is 50%. Dilated left atrium noted left ventricular hypertrophy. Heart catheterization pertinent findings: January 22, 2020. Nonobstructive coronary artery disease. Occluded mid left anterior descending artery. Recommendation Anesthesia Recommendation Anesthesia recommendation: OPTIMIZED for anesthesia
[2024-09-29] VITALS (8 sets, daily range): BP systolic 106–144; BP diastolic 40–63; PULSE 62–71; RESP 14–17; TEMP 36.2–36.3; O2SAT 97–98; BMI 21.5
--- NOTE | 2024-09-29 13:26 | PCM.PRE.AN2 ---
ASA Classification* ASA Classification ASA Classification: 3 Assessment & Plan Anesthesia* Anesthesia Assessment Anesthesia Assessment: Discussed sedation and/or anesthesia options, risks, benefits, and alternatives with patient/parents/legal guardian/POA. Questions invited. The patient/parents/legal guardian/POA seems to understand and agrees to proceed with anesthesia plan. Reviewed the physical assessment, medical history, allergy history and patient home medications list prior to surgery/procedure/anesthetic and documented any changes. Performed airway and anesthesia risk assessments. Anesthesia Type Anesthesia Type: MAC Anesthesia Focused Assessment* Temperature: 97.1 F Pulse Rate: 64 Blood Pressure: 144/63 Respiratory Rate: 16 Pulse Ox: 98 Oxygen Delivery Method: Room Air Airway Assessment Mouth opens: >3 cm Mallampati Score: II Teeth Condition: Intact Focused Labs Anesthesia Preop lab: CBC WBC 7.5 K/mm3 (4.4-11.0) 07/12/24 10:03 RBC 4.63 M/mm3 (4.2-5.4) 07/12/24 10:03 Hgb 13.1 g/dL (12.0-15.0) 07/12/24 10:03 Hct 40.0 % (37-47) 07/12/24 10:03 Plt Count 215 K/mm3 (150-450) 07/12/24 10:03 CHEMISTRY Potassium 3.5 mmol/L (3.5-5.1) 06/26/24 06:48 Sodium 142 mmol/L (136-145) 06/26/24 06:48 BUN 12 mg/dL (7-18) 06/26/24 06:48 Creatinine 1.07 mg/dL (0.55-1.02) H 06/26/24 06:48 Glucose 92 mg/dL (74-106) 06/26/24 06:48 COAG Pre-Assessment Diagnosis/Proposed Procedure Planned Operative Procedure(s): COLONOSCOPY Anesthesia History Anesthesia History - retail management keyholder: Anesthesia History - retail management keyholder Hx Hospitalization Yes: COLITIS 06/2909/26/24 15:07 Any Problems With Anesthesia No 09/26/24 15:07 Cholinesterase deficiency No 09/26/24 15:07 You/Your Family Experience No 09/26/24 15:07 fever (hyperthermia) with Relationship Recent Exposure to Contagious No 09/29/24 13:11 Disease Does patient have nerve No 09/26/24 15:07 stimulator Patient instructed to have device shut off --Does patient have Pacemaker No 09/29/24 13:11 or ICD? When Was Last Pacemaker Check QUESTION #4 FULL TEXT: You/Your Family Experience fever (hyperthermia) with Anesthesia Last Oral Intake Last Oral intake: Last Oral Intake NPO since 12:30 09/29/24 13:11 Meds taken in AM with sips of Yes 09/29/24 13:11 water? Meds patient instructed to see mar 09/29/24 13:11 take am of surgery PONV PONV - retail management keyholder: PONV - retail management keyholder Female Yes 09/26/24 15:07 HX of Motion Sickness No 09/26/24 15:07 HX of N/V After Surgery No 09/26/24 15:07 Non-Smoker Yes 09/26/24 15:07 Duration of Surgery greater No 09/26/24 15:07 than 60 minutes Number of Risk Factors 2 09/26/24 15:07 PONV Score Moderate Risk 09/26/24 15:07 Height & Weight Height & Weight: Anesthesia: Height & Weight Height 5 ft 1 in 09/29/24 13:11 Weight: 51.71 kg 09/29/24 13:11 Body Mass Index (BMI) 21.5 09/29/24 13:11 Respiratory Assessment Respiratory Assessment - retail management keyholder: Respiratory Tract Infection Hx - retail management keyholder Hx Respiratory Tract Infection No 09/26/24 15:07 STOP Sleep Apnea STOP Sleep Apnea - retail management keyholder: STOP Sleep Apnea - retail management keyholder Hx Hypertension Yes: CONTROLLED WITH MEDS 09/26/24 15:07 Hx Sleep Apnea No 09/26/24 15:07 CPAP BIPAP Do you snore loudly (louder No 09/26/24 15:07 than talking or can be heard Do you often feel tired/ No 09/26/24 15:07 fatigued/ sleepy during daytime? Has anyone observed you stop No 09/26/24 15:07 breathing during sleep? STOP Results Negative 09/26/24 15:07 QUESTION #5 FULL TEXT : Do you snore loudly (louder than talking or can be heard through closed doors)? Tobacco Use History Tobacco Use History - retail management keyholder: Tobacco Use History - retail management keyholder Tobacco Use Smoking Status Never smoker 09/26/24 15:07 Hx Tobacco Use No 09/26/24 15:07 Years Smoking Packs Smoked per Day Smoking Cessation Date was within the last 15 years Hx Smoking Cessation Date Hx Smoking Cessation Counseling Hematologic Medial History Hematologic Hx - retail management keyholder: Hematologic Medical Hx - engraver signature Hx of Blood Transfusion No 09/26/24 15:07 Hx of Transfusion in last 3 No 09/26/24 15:07 Months Date of Last Transfusion (if within last 3 months) Ever experience any problems No 09/26/24 15:07 with transfusion(s)? Specify any problems Hx of Preganancy in last 3 No 09/26/24 15:07 Months Nurse Filling Out Transfusion [email or web address] 09/26/24 15:07 & Questions: Date: 09/26/24 09/26/24 15:07 Time: 15:10 09/26/24 15:07 Patient unable to answer at this time (ie. 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 HLD (hyperlipidemia) Home Medications ?Medication ?Instructions ?Recorded ?Last Taken ?Type aspirin 81 mg tablet,delayed 81 mg PO QDAY 01/24/18 09/26/24 History release folic acid 800 mcg tablet 0.8 mg PO DAILY 01/09/20 06/23/24 History glucosamine-chondroitin 250 mg-200 1 tab PO DAILY 01/09/20 06/23/24 History mg tablet (Osteo Bi-Flex) omeprazole 20 mg capsule,delayed 20 mg PO DAILY 01/09/20 06/23/24 History release rosuvastatin 20 mg tablet 20 mg PO QHS 02/26/23 06/22/24 History acetaminophen 500 mg tablet 500 mg PO BID 02/11/24 06/23/24 History (Tylenol Extra Strength) cholecalciferol (vitamin D3) 25 25 mcg PO DAILY 02/11/24 06/23/24 History mcg (1,000 unit) tablet ibandronate 150 mg tablet 150 mg PO QMONTH 02/11/24 05/28/24 History atenolol 25 mg tablet 25 mg PO QDAY #90 tabs 05/04/24 09/29/24 12:30 Rx amlodipine 10 mg tablet 10 mg PO DAILY #90 tabs 05/25/24 09/29/24 12:30 Rx calcium carbonate 1,000 mg PO DAILY 06/24/24 06/23/24 History vitamin B comp and C no.3 15 mg-10 1 cap PO DAILY 06/24/24 06/23/24 History mg-50 mg-5 mg-300 mg capsule (B Complex Plus Vitamin C) hydrochlorothiazide 25 mg tablet 25 mg PO DAILY 09/26/24 Unknown History Allergy/AdvReac Type Severity Reaction Status Date / Time No Known Allergies Allergy Verified 09/29/24 13:10 Family History Mother Cancer Ovarian cancer Heart disease Breast cancer Hypertension Valvular heart disease Father Cancer throat cancer Asthma Sister Breast cancer Daughter Cancer Surgical History History of coronary artery stent placement History of left heart catheterization (01/22/20) History of coronary angioplasty (08/1999) 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) H/O left breast biopsy History of ovarian cystectomy History of appendectomy Hx of cholecystectomy H/O: hysterectomy Social History Smoking Status: Never smoker alcohol intake: current alcohol intake frequency: holidays/special occasions only Alcohol type: wine substance use type: does not use caffeine: No Review of Systems (Anesthesia) ROS Narrative System reviewed and no additional complaints, except as documented.
--- NOTE | 2024-09-29 13:58 | PCM.HP.STD ---
HPI - General General Date of Admission: 09/29/24 Date of Service: 09/29/24 Chief Complaint: colitis HPI Narrative PETER MARIEE, is a 89 F who presents for an outpatient colonoscopy. Pt was recently hospitalized 06.24.24-06.26.24 for sigmoid and rectal colitis with diarrhea and abdominal pain. She did not undergo colonoscopy in the hospital and was recommended to have one as an outpatient. She was put on IV antibiotic therapy and sent home with 14 days of cipro and Flagyl. OV 07.12.24 Pt has been doing ok since her hospitalization. She continues to have loose stools. She tells me yesterday she had 6 episodes of loose stool. The stools are more formed then prior and she is no longer having abdominal pain. She as some concerns regarding constipation as she typically struggles with this. She is leaving for [place] tomorrow. SHe denies heartburn, constipation, n/v, or melena. CT abdomen/pelvis 06.24.24; 1. Mild intramural edema in the rectal wall and proximal sigmoid colon without associated diverticulosis. This may be secondary to mild proctitis and mild colitis. Proctoscopy and colonoscopy will be helpful. 2. No bowel obstruction, mass or lymphadenopathy in the abdomen and pelvis. 3. Mild dilatation of the common bile is most likely related to post cholecystectomy. No intrahepatic biliary ductal dilatation. 4. 3 cm nonenhancing low-attenuation lesion in segment 2 of the liver parenchyma with CT number of 10.29 Hounsfield units. ACR White Paper guidelines (Jael, et al. JACR 2017; 14(11):7537-0305.) suggest no follow-up is necessary. Orders CBC W/Diff, Automated Today K52.9 - Noninfective gastroenteritis and colitis, unspecified Stool Lactoferrin/WBC Today K58.9 - Irritable bowel syndrome, unspecified Calprotectin, Stool Today K52.9 - Noninfective gastroenteritis and colitis, unspecified Medications: New colestipol 1 g PO ONCE 60 tabs 2RF PFSH Medical History Wears hearing aid Loss of hearing Wears glasses Cardiology follow-up encounter Myocardial infarct Hypertension Greater trochanteric bursitis of right hip Trochanteric bursitis of right hip Essential (primary) hypertension GERD (gastroesophageal reflux disease) Osteopenia Gallstones Back problem 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 HLD (hyperlipidemia) Home Medications ?Medication ?Instructions ?Recorded ?Last Taken ?Type aspirin 81 mg tablet,delayed 81 mg PO QDAY 01/24/18 09/26/24 History release folic acid 800 mcg tablet 0.8 mg PO DAILY 01/09/20 06/23/24 History glucosamine-chondroitin 250 mg-200 1 tab PO DAILY 01/09/20 06/23/24 History mg tablet (Osteo Bi-Flex) omeprazole 20 mg capsule,delayed 20 mg PO DAILY 01/09/20 06/23/24 History release rosuvastatin 20 mg tablet 20 mg PO QHS 02/26/23 06/22/24 History acetaminophen 500 mg tablet 500 mg PO BID 02/11/24 06/23/24 History (Tylenol Extra Strength) cholecalciferol (vitamin D3) 25 25 mcg PO DAILY 02/11/24 06/23/24 History mcg (1,000 unit) tablet ibandronate 150 mg tablet 150 mg PO QMONTH 02/11/24 05/28/24 History atenolol 25 mg tablet 25 mg PO QDAY #90 tabs 05/04/24 09/29/24 12:30 Rx amlodipine 10 mg tablet 10 mg PO DAILY #90 tabs 05/25/24 09/29/24 12:30 Rx calcium carbonate 1,000 mg PO DAILY 06/24/24 06/23/24 History vitamin B comp and C no.3 15 mg-10 1 cap PO DAILY 06/24/24 06/23/24 History mg-50 mg-5 mg-300 mg capsule (B Complex Plus Vitamin C) hydrochlorothiazide 25 mg tablet 25 mg PO DAILY 09/26/24 Unknown History Allergy/AdvReac Type Severity Reaction Status Date / Time No Known Allergies Allergy Verified 09/29/24 13:10 Family History Mother Cancer Ovarian cancer Heart disease Breast cancer Hypertension Valvular heart disease Father Cancer throat cancer Asthma Sister Breast cancer Daughter Cancer Surgical History History of coronary artery stent placement History of left heart catheterization (01/22/20) History of coronary angioplasty (08/1999) 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) H/O left breast biopsy History of ovarian cystectomy History of appendectomy Hx of cholecystectomy H/O: hysterectomy Social History Smoking Status: Never smoker alcohol intake: current alcohol intake frequency: holidays/special occasions only Alcohol type: wine substance use type: does not use caffeine: No ROS Constitutional Constitutional: Denies fatigue, fever(s), poor appetite, weight gain or weight loss Gastrointestinal Gastrointestinal: Denies belching, bloating, change in bowel habits, change in stool character, chewing difficulty, coffee ground emesis, constipation, cramping, diarrhea, dyspepsia, dysphagia, early satiety, excessive flatus, fecal incontinence, heartburn, hematemesis, hematochezia, hemorrhoids, loose stools, melena, nausea, odynophagia, rectal bleeding, tenesmus, vomiting or weight changes Vital Signs Vital Signs Vital Signs: 09/29/24 13:11 09/29/24 13:11 09/29/24 13:28 Temperature 97.1 F L 97.1 F L Temperature Source Temporal Pulse Rate 64 64 Respiratory Rate 16 16 Respiratory Pattern Normal Blood Pressure 144/63 H 144/63 H Blood Pressure Mean 90 Blood Pressure Source Manual Blood Pressure Position Semi-Fowlers Blood Pressure Location Left Arm Pulse Ox 98 98 Oxygen Delivery Method Room Air Room Air Weight Weight: 114 lb Body Mass Index (BMI) 21.5 Physical Exam Const alert, oriented x3, no apparent distress and healthy appearing General Appearance: cooperative GI normal to inspection, nondistended, normoactive bowel sounds, soft to palpation, non-tender and non-distended Percussion: normal to percussion Rectal Exam: deferred Assessment & Plan Assessment/Plan (1) Colitis: PLAN: Assessment and Plan Assessment and Plan (1) Non-specific colitis: (2) Colitis: Status: Acute Plan: This is an 88 yo female here today for hospital f/u. Pt was admitted for unspecified colitis identified on CT abdomen/pelvis. She was put on IV antibiotics and sent home with Cipro and Flagyl for 14 days. She has not yet undergone colonoscopy but will be scheduled for one today. Today she continues to have loose stool but no abdominal pain. She is leaving for [place] today and will return prior to [place]. She will be scheduled for a colonoscopy then. I will give her colestipol to take daily to get her stool to be more formed. I ordered stool testing and blood work as well. -CBC and stool testing -Colonoscopy -Colestipol 1 gram daily -F/u in 3 months Orders: Orders CBC W/Diff, Automated Today K52.9 - Noninfective gastroenteritis and colitis, unspecified Stool Lactoferrin/WBC Today K58.9 - Irritable bowel syndrome, unspecified Calprotectin, Stool Today K52.9 - Noninfective gastroenteritis and colitis, unspecified Medications: New colestipol 1 g PO ONCE 60 tabs 2RF
--- NOTE | 2024-09-29 14:00 | COLBX_PTH ---
PATIENT: PETER MARIEE LOC: EN U#:[id number] AGE/SX: 89/F ROOM: RE09/29/[address]: Dr. bAdi Choi DO : 1935 BED: DIS: 09/29/2024 SPEC #: [id number] RECD: 09/29/24 17:17 STATUS: MICHELE RECharlotte #: [id number] ANDRZEJ: 09/29/24 14:[address]: Abdi Choi DEPT: SURGICAL PATHOLOGY RECD BY: Gloria Coronel ENTERED: 10/02/24 09:53 SP TYPE: COLON BX OTHR DR: Dr. Rica Her MD Tissues: A - Ileum, NOS B - COLON BIOPSY C - COLON BIOPSY Procedures: Surgery Specimen Level IV HEADER OPERATION: Colonoscopy PRE-OP DIAGNOSIS: Colitis TISSUE SUBMITTED: A- Terminal ileum biopsy, B- Random colon biopsy, C- Rectal colon biopsy MICROSCOPIC DIAGNOSIS A. Terminal ileum, biopsy: Focal acute enteritis. B. Colon, random biopsy: Focal acute colitis. See comment. C. Rectal biopsy: Focal acute colitis. See comment. 10/03/2024 COMMENT A. Focal cryptitis is noted. Crypt abscesses or granulomas are not seen. B, C. Focal ulceration and cryptitis are noted. Crypt abscesses or granulomas are not seen. Correlation with clinical, endoscopic findings and appropriate follow up are necessary. MICROSCOPIC DESCRIPTION Slides are reviewed. GROSS DESCRIPTION A. Received in fixative is one container labeled with the patient's name and designated Terminal ileum biopsy. The specimen consists of two irregular fragments of light [place] soft tissue that in aggregate measure 0.7 x 0.5 x 0.1 cm. The specimen is totally submitted in one cassette. B. Received in fixative is one container labeled with the patient's name and designated Random colon biopsy. The specimen consists of multiple irregular fragments of light [place] soft tissue that in aggregate measure 1.2 x 0.3 x 0.1 cm. The specimen is totally submitted in one cassette. C. Received in fixative is one container labeled with the patient's name and designated Rectal colon biopsy. The specimen consists of two irregular fragments of light mc[place]mott soft tissue that in aggregate measure 0.5 x 0.2 x 0.1 cm. The specimen is totally submitted in one cassette. 10/02/2024 TC:2 CPT:20316n7
--- NOTE | 2024-09-29 14:41 | OP.CCLET_ITS ---
09/29/2024 Rica Her Re : Colonoscopy procedure for Fozia Souza Arden This procedure was performed on Sunday, September 29, 2024. My impressions and recommendations are as follows: Impressions : - Diverticulosis in the recto-sigmoid colon and in the sigmoid colon. - Patchy mild inflammation was found in the rectum, in the recto-sigmoid colon, in the sigmoid colon, in the descending colon and in the transverse colon secondary to colitis. Biopsied. - Mild inflammation was found in the ileum secondary to ileitis. Biopsied. Recommendations : - Discharge patient to home. - Resume previous diet. - Continue present medications. - Await pathology results. - No repeat colonoscopy due to age. My findings are described in the full procedure note, which is enclosed. If I can be of further assistance, please feel free to contact me at . Sincerely, Abdi Friend, DO 09/29/2024 2:40:55 PM This report has been signed electronically.
--- NOTE | 2024-09-29 14:41 | OP.COLON_ITS ---
Patient Name: Fozia Broussard Procedure Date: 09/29/2024 2:04 PM Date of : 1935 Age: 89 Procedure: Colonoscopy Indications: Hematochezia Providers: Abdi Choi DO Referring MD: Rica Her Medicines: Monitored Anesthesia Care Patient Profile: This is an 89 year old female. Refer to note in patient chart for documentation of history and physical. Last Colonoscopy: more than 10 years ago. Complications: No immediate complications. Procedure: Pre-Anesthesia Assessment: - Prior to the procedure, a History and Physical was performed, and patient medications and allergies were reviewed. The patient is competent. The risks and benefits of the procedure and the sedation options and risks were discussed with the patient. All questions were answered and informed consent was obtained. Patient identification and proposed procedure were verified by the physician in the pre-procedure area. Mental Status Examination: alert and oriented. Airway Examination: normal oropharyngeal airway and neck mobility. Respiratory Examination: clear to auscultation. CV Examination: normal. Prophylactic Antibiotics: The patient does not require prophylactic antibiotics. Prior Anticoagulants: The patient has taken no anticoagulant or antiplatelet agents except for NSAID medication. ASA Grade Assessment: II - A patient with mild systemic disease. After reviewing the risks and benefits, the patient was deemed in satisfactory condition to undergo the procedure. The anesthesia plan was to use monitored anesthesia care (MAC). Immediately prior to administration of medications, the patient was re-assessed for adequacy to receive sedatives. The heart rate, respiratory rate, oxygen saturations, blood pressure, adequacy of pulmonary ventilation, and response to care were monitored throughout the procedure. The physical status of the patient was re-assessed after the procedure. After I obtained informed consent, the scope was passed under direct vision. Throughout the procedure, the patient's blood pressure, pulse, and oxygen saturations were monitored continuously. The Colonoscope was introduced through the anus and advanced to the terminal ileum. The colonoscopy was performed without difficulty. The patient tolerated the procedure well. The quality of the bowel preparation was adequate. The terminal ileum, ileocecal valve, appendiceal orifice, and rectum were photographed. Scope In: 2:15:18 PM Scope Withdrawal Time 0 hours 9 minutes 23 seconds Scope Out: 2:34:25 PM Total Procedure Duration Time 0 hours 19 minutes 7 seconds Findings: The perianal and digital rectal examinations were normal. A few small-mouthed diverticula were found in the recto-sigmoid colon and sigmoid colon. Patchy mild inflammation characterized by congestion (edema) and erosions was found in the rectum, in the recto-sigmoid colon, in the sigmoid colon, in the descending colon and in the transverse colon. Biopsies were taken with a cold forceps for histology. Verification of patient identification for the specimen was done. Estimated blood loss was minimal. Patchy mild inflammation was found in the terminal ileum. Biopsies were taken with a cold forceps for histology. Verification of patient identification for the specimen was done. Estimated blood loss was minimal. Impression: - Diverticulosis in the recto-sigmoid colon and in the sigmoid colon. - Patchy mild inflammation was found in the rectum, in the recto-sigmoid colon, in the sigmoid colon, in the descending colon and in the transverse colon secondary to colitis. Biopsied. - Mild inflammation was found in the ileum secondary to ileitis. Biopsied. Recommendation: - Discharge patient to home. - Resume previous diet. - Continue present medications. - Await pathology results. - No repeat colonoscopy due to age. Procedure Code(s): --- Professional --- 35993, Colonoscopy, flexible; with biopsy, single or multiple CPT copyright 2021 [employer]. All rights reserved. The codes documented in this report are preliminary and upon hotel administrative assistant review may be revised to meet current compliance requirements. Abdi Choi DO 09/29/2024 2:40:55 PM This report has been signed electronically. Number of Addenda: 0 Note Initiated On: 09/29/2024 2:04 PM
--- NOTE | 2024-09-29 14:44 | PCM.POST.ANE ---
Anesthesia: Postop Eval I Current Vital Signs Temperature: 97.4 F Pulse Rate: 68 Blood Pressure: 118/44 Respiratory Rate: 14 Pulse Ox: 98 Oxygen Delivery Method: Room Air Assessment Airway patent: Yes Spontaneous unlabored respirations: Yes Mental status: Awake and Calm nausea: No Vomiting: No Anesthesia Complication: No Fluid Hydration Crystalloid volume administer (ml): 40 Total IV fluid infused: 40 Progress Note Anesthesia document: Postop Eval 1 completed: Yes
--- NOTE | 2024-09-29 15:26 | PCM.POSTANE2 ---
Anesthesia Postop Eval I Sum Postop Eval Completion status Anesthesia document: Postop Eval 1 completed: Yes Anesthesia Postop Eval I Summary Anesthesia Postop Eval I Summary: Anesthesia Postop Eval I: Assessment Summary Airway patent Yes 09/29/24 14:44 [email or web address] Spontaneous unlabored Yes 09/29/24 14:44 [email or web address] respirations Mental status Awake,Calm 09/29/24 14:44 [email or web address] nausea No 09/29/24 14:44 [email or web address] Vomiting No 09/29/24 14:44 [email or web address] Anesthesia Postop Eval I: Fluid Summary Crystalloid volume administer 40 09/29/24 14:44 [email or web address] (ml) Colloids volume administered ( ml) Blood Product volume administered (ml) Total IV fluid infused 40 09/29/24 14:44 [email or web address] Anesthesia Postop Eval I: Summary Notes Anesthesia Complication No 09/29/24 14:44 [email or web address] Anesthesia Complication Comment: Post-operative progress note Anesthesia: Postop Eval II Evaluation Mental status: Awake Pain Level: 0 nausea: No Vomiting: No Complications Anesthesia Complication: No
== END 2024-09-29 15:24 | disposition home or self-care (01) ==
LOC: EN 12:52 → AC 12:55
PROVIDERS: PCP Internal Medicine; Referring Provider Internal Medicine; Visit Provider Internal Medicine Gastroenterology
PROC: 0DJD8ZZ Inspection of Lower Intestinal Tract, Via Natural or Artificial Opening Endoscopic (ICD-10-PCS; CPT 45378; principal; 2024-09-29 13:55)
DX: K52.9 Noninfective gastroenteritis and colitis, unspecified (principal); I25.10 Atherosclerotic heart disease of native coronary artery without angina pectoris; I10 Essential (primary) hypertension; I25.2 Old myocardial infarction; E78.5 Hyperlipidemia, unspecified; Z79.82 Long term (current) use of aspirin; Z79.899 Other long term (current) drug therapy
CPT/HCPCS: 45380; 88305; A4216; J2405

== ENCOUNTER → 2025-01-10 | Outpatient (CLI) | payer MEDICARE, OTHER, SELFPAY ==
--- NOTE | 2025-01-10 10:03 | BI_ITS ---
EXAM: SCRN MAMM (CAD)W/LOTUS BILAT 01/10/2025 CLINICAL HISTORY: F, Age 89 y/o , SCRN MAMM (CAD)W/LOTUS BILAT TECHNIQUE: Bilateral screening digital breast tomosynthesis with 2D and 3D images. Computer aided detection. COMPARISON: Prior exam(s) dated 07/16/2023, 07/15/2022, 06/24/2021, 01/16/2020. FINDINGS: TISSUE DENSITY: The breast tissue is extremely dense which lowers the sensitivity of mammography. The mammogram demonstrates that the patient has dense breasts. Supplemental screening with whole breast ultrasound or MRI may be considered for further evaluation. Bilateral Breast Mammographic Findings: There is an asymmetry in the inferior right breast at middle depth visualized on the MLO view. No significant masses, calcifications or other abnormalities are identified in the left breast. BI/SCRN MAMM (CAD)W/LOTUS BILAT IMPRESSION: The asymmetry in the inferior right breast at middle depth visualized on the ML O view requires further evaluation. Recommend diagnostic mammogram of the right breast and ultrasound on the day of diagnosti c if indicated. Right Breast: BIRADS 0 Incomplete: Need additional imaging evaluation and/or pr ior mammograms for comparison.. Left Breast: BIRADS 1 NEGATIVE. OVERALL FINAL ASSESSMENT: BIRADS 0 Incomplete: Need additional imaging evaluati on and/or prior mammograms for comparison.. RECOMMENDATION: Additional projections. A letter with findings and recommendations will be mailed to the patient. Reading Location: [facility]
== END | disposition home or self-care (01) ==
LOC: OPBI 01-22 09:49
PROVIDERS: PCP Internal Medicine; Referring Provider Internal Medicine; Visit Provider Internal Medicine
DX: Z12.31 Encounter for screening mammogram for malignant neoplasm of breast (principal)
CPT/HCPCS: 77063; 77067

== ENCOUNTER → 2025-01-22 | Outpatient (CLI) | payer MEDICARE, OTHER, SELFPAY ==
--- NOTE | 2025-01-22 09:28 | BI_ITS ---
EXAM: DIAG MAMM W/CAD, UNILAT N/A CLINICAL HISTORY: F, Age 89 y/o , ABN MAMM. Asymmetric density right breast. Evaluate. TECHNIQUE: Bilateral Diagnostic digital breast tomosynthesis with 2D and 3D images. Computer aided detection. COMPARISON: Prior exam(s) dated 01/10/2025, 07/16/2023, and 07/15/2022. FINDINGS: TISSUE DENSITY: The breast tissue is extremely dense which lowers the sensitivity of mammography. Bilateral Breast Mammographic Findings: There is asymmetric density in the inferior aspect of the right breast which does persist on today's study. It does not disperse on the spot compression MLO view. Ultrasound will be performed for further evaluation. Benign-appearing secretory type calcifications, round microcalcifications, and macrocalcifications are seen in the breast. BI/DIAG MAMM W/CAD, UNILAT IMPRESSION: OVERALL FINAL ASSESSMENT: BIRADS 0 Incomplete: Need additional imaging evaluati on and/or prior mammograms for comparison.. An ultrasound examination of the right breast asymmetric density will be performed for further evaluation. RECOMMENDATION: Ultrasound. A letter with findings and recommendations will be mailed to the patient. Reading Location: [id number]
--- NOTE | 2025-01-22 09:28 | US_ITS ---
PROCEDURE: BREAST LIMITED UNILATERAL 01/22/2025 REASON FOR EXAM: ABN MAMM Asymmetric density inferior aspect right breast. Inconclusive mammogram. Evaluate. TECHNIQUE: Targeted left breast ultrasound. COMPARISON: Mammogram studies dated 01/22/2025, 01/10/2025, and 07/16/2023 FINDINGS: There is a benign-appearing macrocalcification in the right breast at the 6 o'clock, 3 cm from nipple position. The asymmetric density seen on the mammogram study appears to represent a ridge of fibroglandular tissue on the images submitted for review. No suspicious solid or cystic masses are seen in the breast to suggest malignancy. US/Breast Limited Unilateral IMPRESSION: Impression: The asymmetric density seen on the mammogram study appears to repre sent a probable ridge of fibroglandular tissue on the ultrasound examination. A short-term six-month follow-up mammogram of the right breast however should be performed to document stability. Birads: BI-RADS 3: PROBABLY BENIGN. Reading Location: [id number]
== END | disposition home or self-care (01) ==
LOC: OPBI 09:25
PROVIDERS: PCP Internal Medicine; Referring Provider Internal Medicine; Visit Provider Internal Medicine
DX: R92.8 Other abnormal and inconclusive findings on diagnostic imaging of breast (principal)
CPT/HCPCS: 76642; 77065

== ENCOUNTER → 2025-03-15 | Outpatient (CLI) | payer MEDICARE, OTHER, SELFPAY ==
--- NOTE | 2025-03-15 13:50 | ECHOD_ITS ---
Reason For Study Reason For Study: ASHD Procedure This was a 2D Doppler, Color Flow transthoracic echocardiogram. Exam performed in department. Left Ventricle Normal LV size. The left ventricular ejection fraction is 65 %. Stage 1 diastolic dysfunction. No regional wall motion abnormalities noted. Right Ventricle Normal RV size. Normal systolic function. Mitral Valve Mild focal mitral valve calcification, bileaflet. Mild (1+) eccentric mitral valve insufficiency. Tricuspid Valve Normal tricuspid valve. Mild tricuspid valve insufficiency. Pulmonary artery systolic pressure is 25 mmHg. Aortic Valve Trisinus/trileaflet aortic valve. Pulmonic Valve Normal pulmonic valve. Mild (1+) pulmonic valve insufficiency. Great Vessels Normal aortic root. The pulmonary artery is normal size. Inferior vena cava collapse with sniff. Pericardium/Pleural No pericardial effusion. MMode/2D Measurements & Calculations LVIDd: 4.5 cm IVSd: 0.94 cm Ao root diam: 3.2 cm LVIDs: 2.7 cm LVPWd: 1.4 cm FS: 40.2 % LAV(MOD-bp): 39.6 ml RVOT diam: 2.0 cm LVAd ap4: 17.7 cm2 LAV(MOD-bp) Indexed: 25.9 ml/m2 LVLd ap4: 5.7 cm LAV(MOD-sp2): 34.7 ml EDV(MOD-sp4): 44.7 ml LAV(MOD-sp4): 41.0 ml EDV(sp4-el): 46.3 ml LVAs ap4: 9.4 cm2 LVLs ap4: 4.6 cm ESV(MOD-sp4): 15.6 ml ESV(sp4-el): 16.2 ml EF(MOD-sp4): 65.1 % EF(sp4-el): 65.0 % SV(MOD-sp4): 29.1 ml SV(sp4-el): 30.1 ml LA A4 area: 15.7 cm2 SI(MOD-sp4): 19.0 ml/m2 LA dimension(2D): 4.0 cm RA A4 area: 14.5 cm2 Time Measurements MV dec time: 0.22 sec Doppler Measurements & Calculations MV E max brian: 93.0 cm/sec Lat Peak E' Brian: 7.1 cm/sec Med Peak E' Brian: 5.7 cm/sec MV A max brian: 101.2 cm/sec E/E' lat: 13.1 E/E' med: 16.3 MV E/A: 0.92 MV V2 max: 112.6 cm/sec Ao V2 max: 151.9 cm/sec MV max P.1 mmHg MV dec slope: 440.3 cm/sec2 Ao max P.2 mmHg MV V2 mean: 69.1 cm/sec Ao V2 mean: 105.2 cm/sec MV mean P.1 mmHg Ao mean P.0 mmHg MV V2 VTI: 40.1 cm Ao V2 VTI: 36.8 cm AV (velocity ratio): 0.76 LV V1 max: 120.9 cm/sec PA V2 max: 88.4 cm/sec SV(RVOT): 57.7 ml LV V1 max P.8 mmHg PA V2 mean: 60.2 cm/sec LV V1 mean P.9 mmHg PA mean PG (full): 0.60 mmHg LV V1 mean: 78.0 cm/sec LV V1 VTI: 28.0 cm TR max brian: 235.9 cm/sec TR max P.3 mmHg ECHO/Echo Complete Interpretation Summary The left ventricular ejection fraction is 65 %. Stage 1 diastolic dysfunction. Normal LV size. Pulmonary artery systolic pressure is 25 mmHg. Ordering Physician: Rica Her Referring Physician: Rica Her Performed By: Batsheva Thomas RCS
== END | disposition home or self-care (01) ==
LOC: CVS 13:50
PROVIDERS: PCP Internal Medicine; Referring Provider Internal Medicine; Visit Provider Internal Medicine
DX: I25.10 Atherosclerotic heart disease of native coronary artery without angina pectoris (principal)
CPT/HCPCS: 93306

== ENCOUNTER → 2025-07-19 | Outpatient (REF) | payer MEDICARE, OTHER, SELFPAY ==
--- OUTSIDE RECORDS SUMMARY | 2025-07-19 03:48 | XMS RPT_ITS | CCD ---
Author Organization [facility] Care Team Providers [employer] Name Role Phone Mary TRAMMELL, Dayan Johnson Unavailable Unavailable Kasiis, Ryan Y Unavailable Unavailable DeFinis, Harumi Y Unavailable Unavailable Jocelin Stapleton Unavailable Dayan Hernandez RN Unavailable Unavailable MD Savita, Saúl Quinones Unavailable Kasiis, Harumi Y Unavailable Unavailable Donna, Harumi Y Unavailable Unavailable Joyce Roe Unavailable Trish Nieves Unavailable MeetLuisen Unavailable [facility] Unavailable BARBER Lowery Unavailable Unavailable Beth Wasserman Unavailable Unavailable Unavailable Unavailable Joyce Roe Unavailable Trish Nieves Unavailable Mehul Dsouza Unavailable [facility] Unavailable BARBER Lowery Unavailable Unavailable Unavailable Unavailable Manchathai, Chantelle Unavailable Unavailable BARBER Lowery Unavailable Unavailable Micah, Chantelle Unavailable Unavailable Amairani Alvarado Unavailable Unavailable Unavailable Unavailable Juaquin Franco Unavailable Unavailable Joyce Roe MD Unavailable Trish Nieves Unavailable Mehul Dsouza Unavailable [facility] Unavailable Sebastián CUSTOM WOOD STAIR BUILDER, BARBER Unavailable Unavailable Juaquin Franco LPN Unavailable Unavailable Unavailable Unavailable Jonathan CUSTOM WOOD STAIR BUILDER, Ruth Unavailable Unavailable Joyce Roe MD Unavailable Natasha Decker Unavailable Slarb CUSTOM WOOD STAIR BUILDER, Marianela Unavailable Unavailable Manchak INDUCTION COORDINATION POWER ENGINEER, Chantelle Unavailable Unavailable Gravius INDUCTION COORDINATION POWER ENGINEER, Gina Unavailable Unavailable Celia FRAUSTO, Pipe Rajan Unavailable [phone] Laura COON, Tamera Unavailable Unavailable Joyce Roe MD Attending Unavailable Joyce Roe MD Referring Unavailable Joyce Roe MD Consulting Unavailable Chuy Betancourt Unavailable Generic Provider MD, No Assigned Pcp Primary Car e Provider Unavailable Unavailable Primary Care Provider Unavailabl e GENERIC PROVIDER, NO ASSIGNED PCP Primary Care Unavailable MAY JEAN Attending Unavailable LEONA PERKINS Referring Unavailable GENERIC PROVIDER, NO ASSIGNED PCP Primary Care Unavailable Joyce Roe MD Primary Care Provider Arden FRAUSTO, Dr. Strauss Primary Care Provider Arden FRAUSTO, Dr. Strauss Referring Provider Dr. Abdi Choi DO Attending Provider Dr. Abdi Choi DO Other Provider Dr. Joyce Roe MD Attending Provider [phone] Joyce Roe MD Primary Care Provider [phone] Dr. Joyce Roe MD Referring Provider [phone] Savita FRAUSTO, Dr. Hays Attending Provider JASPER PEACOCK Attending Unavailable JOYCE ROE Primary Care Unavailable MARISOL, ARIANE Referring Unavailable JOYCE ROE Primary Care Unavailable JERZY GLASS F Attending Unavailable MARISOL, ARIANE Referring Unavailable JOYCE ROE M Primary Care Unavailable FEEDGAR, ARIANE Referring Unavailable JOYCE ROE M Primary Care Unavailable JERZY GLASS F Attending Unavailable JOYCE ROE Primary Care Unavailable JERZY GLASS F Attending Unavailable FEGATELLI, ARIANE Referring Unavailable BONEZZI, JOYCE M Primary Care Unavailable Mi FRAUSTO, Dr. Elias Attending Provider Arden FRAUSTO, Dr. Strauss Primary Care Physician Arden FRAUSTO, Dr. Strauss Attending Physician Arden FRAUSTO, Dr. Strauss Referring Provider Savita FRAUSTO, Dr. Hays Attending Physician Mi FRAUSTO, Dr. Elias Attending Physician Bormarcello FINANCE ADMIN-C, [place] Attending Physician Tino FINANCE ADMIN-C, [place] Referring Provider Bonezzi, Joyce Attending Unavailable Bonezzi, Joyce Referring Unavailable Bonezzi, Joyce Primary Care Unavailable Bonezzi, Joyce Attending Unavailable Bonezzi, Joyce Referring Unavailable Bonezzi, Joyce Primary Care Unavailable Bonezzi, Joyce Attending Unavailable Bonezzi, Joyce Referring Unavailable Bonezzi, Joyce Primary Care Unavailable Friend, Abdi Attending Unavailable Bonezzi, Joyce Referring Unavailable Bonezzi, Joyce Primary Care Unavailable Bonezzi, Joyce Primary Care Unavailable [place] Jiménez Attending Unavailable BordnerOneida Referring Unavailable SavitaSaúl ritchie Attending Unavailable Bonezzi, Joyce Primary Care Unavailable Sonia Rene Attending Unavailable Bonezzi, Joyce Referring Unavailable Bonezzi, Joyce Primary Care Unavailable Friend, Abdi Consulting Unavailable Friend, Abdi Attending Unavailable Bonezzi, Joyce Referring Unavailable Bonezzi, Joyce Primary Care Unavailable Saúl Barney Attending Unavailable Bonezzi, Joyce Referring Unavailable Bonezzi, Joyce Primary Care Unavailable Curt Stark Attending Unavailable Bonezzi, Joyce Referring Unavailable Bonezzi, Joyce Primary Care Unavailable Curt Stark Attending Unavailable Bonezzi, Joyce Referring Unavailable Bonezzi, Joyce Primary Care Unavailable Bonezzi, Joyce Primary Care Unavailable Bonezzi, Joyce Attending Unavailable Bonezzi, Joyce Referring Unavailable Bonezzi, Joyce Primary Care Unavailable Friend, Abdi Attending Unavailable Friend, Abdi Attending Unavailable Bonezzi, Joyce Primary Care Unavailable Allergies Allergy Classification Reported Allergen(s) Allergy Type Date of Onset Reaction(s) Facility (16 sources) amLODIPine drug allergy 3 Headache, edema [facility] Work Phone: [phone] (20 sources) NKDA drug allergy 3 [facility] Work Phone: [phone] (16 sources) METOROLOL; Translations: [METOROLOL] allergy to substance 4 Rash [facility] Work Phone: [phone] Medications Current Medications Medication Drug Class(es) Dates Sig (Normalized) Sig (Original) acetaminophen 500 mg oral tablet (20 sources) Start: 02-11-2024 End: 03-29-2025 take 1 tablet by mouth twice daily as needed Acetaminophen (Tylenol Extra Strength) 500 mg tablet Active 500 mg PO TWICE A DAY as needed March 29, 2025 2:07pm Complies with drug therapy Start: 08-02-2017 End: 07-31-2019 take 2 capsules by mouth every twelve hours Start: 08-02-2017 End: 07-31-2019 take 2 capsules by mouth every twelve hours Tylenol 325 MG Oral Capsule 2 (two) Capsule every 12 hours for 0 days Quantity: 60 {Capsule} Refills: 0 Ordered: 31-Jul-2019 BARBER Lowery LPN Start : 02-Aug-2017 End : 31-Jul-2019 Inactive aspirin 81 mg delayed release oral tablet (20 sources) Nonsteroidal Anti-inflammatory Drug Start: 12-16-2017 End: 01-24-2018 take 1 tablet by mouth once daily Aspirin 81 mg tablet,delayed release (DR/EC) Active 81 mg PO daily 0 January 24, 2018 1:13pm Complies with drug therapy Start: 12-16-2017 End: 01-24-2018 Aspirin 81 mg tablet,delayed release (DR/EC) Discontinued PO 0 December 16, 2017 12:00am January 24, 2018 1:14pm Start: 12-10-2010 [place] 1 tablet by [place] [facility] [place] ASPIRIN 81 MG TABS One tablet by mouth daily ASPIRIN [id number] Graciela Cheney Start: 12-10-2010 take 1 tablet by [place] once daily ASPIRIN 81 MG TABS One tablet by mouth daily ASPIRIN [id number] Graciela M Cheney Start: 12-10-2010 take 1 tablet by [place] once daily ASPIRIN EC 81 MG TBEC One tablet by mouth daily ASPIRIN [id number] Ryan Thompson Start: 02-08-2008 ASPIRIN 81 MG CHEWABLE TAB Take one(1) tablet daily. 0 02/08/2008 Active calcium carbonate 1250 mg chewable tablet (20 sources) Start: 06-24-2024 take 1 tablet by mouth once daily Calcium Carbonate 500 mg calcium (1,250 mg) tablet,chewable Active 1000 mg PO DAILY June 24, 2024 12:00am Complies with drug therapy Start: 01-09-2020 End: 06-24-2024 Calcium Carbonate (Calcium 5 00) 500 mg calcium (1,250 mg) tablet Discontinued 1000 mg PO DAILY January 09, 2020 9:23am June 24, 2024 12:35pm Start: 06-12-2016 End: 01-09-2020 take 1 tablet by mouth twice daily Calcium Carbonate (Calcium 500) 500 mg calcium (1,250 mg) tablet Discontinued 500 mg PO TWICE A DAY December 16, 2017 12:00am January 09, 2020 9:24am Start: 03-31-2013 take 1 tablet by [place] twice daily CALCIUM CARBONATE 600 MG TABS One tablet by mouth twice daily CALCIUM CARBONATE [id number] Saúl Barney MD Start: 12-10-2010 take 1 tablet by [place] once daily CALCIUM CARBONATE 600 MG TABS One tablet by mouth daily CALCIUM CARBONATE [id number] Graciela Rajan Cheney calcium carbonate 1500 mg / cholecalciferol 0.01 mg oral tablet (7 sources) Vitamin D Start: 02-08-2008 calcium carbonate/vitamin d3(CALCIUM 600 + D 600 MG-400 UNIT TAB) 0 02/08/2008 Active carbidopa 10 mg / levodopa 100 mg oral tablet (2 sources) Aromatic Amino Acid Decarboxylation Inhibitor, Aromatic Amino Acid Start: 06-11-2025 Carbidopa-Levodopa (Sinemet) 10-100 mg tablet Active 1 {tbl} PO .QID 360 4 June 11, 2025 1:15pm 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, 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 Complies with drug therapy Start: 04-03-2025 End: 06-11-2025 Carbidopa-Levodopa (Sinemet) 10-100 mg tablet Discontinued 1 {tbl} PO TWICE A DAY 60 4 April 03, 2025 12:00am June 11, 2025 1:21pm 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, 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 cholecalciferol 0.025 mg oral tablet (20 sources) Vitamin D Start: 02-11-2024 take 1 tablet by mouth once daily Cholecalciferol (Vitamin D3) 25 mcg (1,000 unit) tablet Active 25 ug PO DAILY February 11, 2024 12:00am Complies with drug therapy Start: 12-16-2017 End: 02-26-2023 take 1 tablet by mouth once daily Cholecalciferol (Vitamin D3) 1,000 unit tablet Discontinued 1000 U PO daily December 16, 2017 12:00am February 26, 2023 2:35pm End: 06-12-2016 End: 06-12-2016 take 1 tablet by mouth once daily VITAMIN D, 400UNIT (Oral Tablet) 1 tab qd for 0 days Refills: 0 Ordered: 12-Jun-2016 BARBER Lowery LPN End : 12-Jun-2016 Discontinued Comments: This order discontinued per [facility]. Comment on above: This order discontin ued per [facility]. chondroitin sulfates 200 mg / glucosamine hydrochloride 250 mg oral tablet (13 sources) Start: 01-09-2020 Glucosamine-Chondroi tin (Osteo Bi-Flex) 250-200 mg tablet Active 1 {tbl} PO DAILY January 09, 2020 12:00am Complies with drug therapy Start: 01-09-2020 Glucosamine-Ch ondroitin (Osteo Bi-Flex) 250-200 mg tablet Active 1 {tbl} PO DAILY January 09, 2020 12:00am Start: 01-09-2020 take 2 tablets by [facility] twice daily glucosamine-chondroitin 250 mg-200 mg tablet Active 2 TABLET PO TWICE A DAY January 08, 2020 11:00pm folic acid 0.8 mg oral tablet (20 sources) Start: 01-09-2020 take 0.8 mg by mouth once daily Folic Acid 800 mcg tablet Active 0.8 mg PO DAILY January 09, 2020 12:00am Complies with drug therapy Start: 01-09-2020 take 0.8 mg by mouth once rae y Folic Acid Active 0.8 MG PO DAILY January 08, 2020 11:00pm Start: 07-31-2019 Start: 07-31-2019 take 2 tablets by mouth once d aily Folic Acid 400 MCG Oral Tablet 2 (two) Tablet qd for 0 days Quantity: 60 {Tablet} Refills: 0 Ordered: 11-Jan-2020 Arden FRAUSTO, Joyce Roe MD, Joyce Rajan Start : 31-Jul-2019 Active FOLIC ACID ORAL Take by mouth once daily. Active furosemide 20 mg oral tablet (20 sources) Loop Diuretic Start: 03-29-2025 End: 04-19-2025 take 1 tablet by mouth once daily as needed for edema Furosemide 20 mg tablet Active 20 mg PO daily as needed for edema April 19, 2025 9:53am Complies with drug therapy Start: 03-22-2025 take 1 tablet by [place] once daily furosemide (LASIX) 20 mg tablet Take 20 mg by mouth once daily. 03/22/2025 Active Start: 07-29-2021 End: 07-05-2023 GLUC/LÓPEZ-MSM#1/C/KRISTIE/REAGAN/B OR (OSTEO BI-FLEX TRIPLE STRENGTH ORAL) (7 sources) take 2 tablets by mouth once daily GLUC/LÓPEZ-MSM#1/C/KRISTIE/REAGAN/BOR (OSTEO BI-FLEX TRIPLE STRENGTH ORAL) Take 2 tablets by mouth once daily. Active hydroCHLOROthiazide 25 mg or al tablet (10 sources) Thiazide Diuretic St ar t: 02 - 7- 20 25 hydroCHLOROthiazide 25 mg ta blet 25 mg. Every 3 days 10/13/2024 Active Start: 09-26-2024 End: 03-29-2025 take 1 tablet by mouth once daily Hydrochlorothiazide 25 mg tablet Discontinued 25 mg PO DAILY September 26, 2024 1:00am March 29, 2025 2:08pm ibandronic acid 150 mg oral tablet (20 sources) Bisphosphonate Start: 09-26-2024 Ibandronate 15 0 mg tablet once every month. 09/26/2024 Active Start: 02-11-2024 take 2 mg by mouth every month Ibandronate 150 mg tablet Active 150 mg PO EVERY MONTH February 11, 2024 12:00am TAKE 2 ONCE MONTHLY ON THE Complies with drug therapy Start: 12-10-2010 End: 03-02-2012 BONIVA 150 MG TABS 1 tablet by mouth 1 X a month IBANDRONATE SODIUM [id number] Saúl Barney MD losartan potassium 50 mg oral tablet (11 sources) Angiotensin 2 Receptor [facility] Start: 03-29-2025 take 1 tablet by mouth once daily Losartan 50 mg tablet Active 50 mg PO daily 3 March 29, 2025 12:00am Complies with drug therapy Start: 05-16-2013 take 1 tablet by [place] once daily LOSARTAN POTASSIUM 100 MG TABS One tablet by mouth daily LOSARTAN POTASSIUM [id number] Saúl Barney MD Magnesium (1 source) Start: 03-06-2025 Magnesium 250 mg tab 03/06/2025 Active magnesium oxide 200 mg oral tablet (3 sources) Start: 03-29-2025 take 1 tablet by mouth twice daily Magnesium Oxide 200 mg magnesium tablet Active 200 mg PO TWICE A DAY March 29, 2025 12:00am Complies with drug therapy omeprazole 20 mg delayed release oral capsule (20 sources) Proton Pump Inhibitor Start: 01-09-2020 take 1 capsule by mouth once daily Omeprazole 20 mg capsule,delayed release(DR/EC) Active 20 mg PO DAILY January 09, 2020 12:00am Complies with drug therapy Start: 01-16-2016 End: 10-10-2024 take 1 capsule by mouth once daily as needed Omeprazole 40 MG Oral Capsule Delayed Release 1 (one) Capsule DR qd as needed for 0 days Quantity: 90 {Capsule} Refills: 1 Ordered: 27-Aug-2016 Arden FRAUSTO, Joyce Roe MD, Joyce Rajan Start : 27-Aug-2016 End : 27-Aug-2016 Discontinued Comments: Medication taken as needed. Start: 01-16-2016 End: 03-13-2016 OMEPRAZOLE 40 MG CPDR One ta blet by mouth every three days OMEPRAZOLE [id number] Duran Hutchins DO Comment on above: Medication taken as needed. rosuvastatin calcium 20 mg oral tablet (20 sources) HMG-CoA Reductase Inhibitor Start: take 1 tablet by mouth at bedtime Rosuvastatin 20 mg tablet Active 20 mg PO AT BEDTIME February 26, 2023 12:00am Complies with drug therapy Start: 07-04-2021 Start: 01-17-2021 Vitamin B Comp And C No.3 (B Complex Plus Vitamin C) 65-34-30-5-300 mg capsule (6 sources) Start: 06-24-2024 Vitamin B Comp And C No.3 (B Complex Plus Vitamin C) 08-69-05-5-300 mg capsule Active 1 NMA PO DAILY June 24, 2024 12:00am give with food (meal/snack) Complies with drug therapy Start: 06-24-2024 Vitamin B Comp And C No.3 (B Complex Plus Vitamin C) 20-40-35-5-300 mg capsule Active 1 NMA PO DAILY June 24, 2024 12:00am give with food (meal/snack) Vitamin B Complex (B Complex-Vitamin B12) tablet (13 sources) Start: 01-09-2020 take 1 tablet by mouth once daily Vitamin B Complex (B Complex-Vitamin B12) tablet Active 1 TABLET PO DAILY January 09, 2020 9:25am Start: 01-09-2020 End: 06-24-2024 Vitamin B Complex (B Complex -Vitamin B12) tablet Discontinued 1 {tbl} PO DAILY January 09, 2020 12:00am June 24, 2024 12:41pm Start: 01-09-2020 take 1 tablet by [place] once daily Vitamin B Complex (B Complex-Vitamin B12) tablet Active 1 TABLET PO DAILY January 09, 2020 12:00am Start: 01-09-2020 take 1 tablet by [place] once daily Vitamin B Complex (B Complex-Vitamin B12) tablet Active 1 TABLET PO DAILY January 08, 2020 11:00pm Completed/Discontinued Medications Medication Drug Class(es) Dates Sig (Normalized) Sig (Original) acetaminophen 325 mg / HYDROcodone bitartrate 5 mg oral tablet (20 sources) Opioid Agonist Start: 02-08-2021 End: 02-11-2024 Hydrocodone-Acetami nophen 1 TABLET tablet Discontinued 1 {tbl} PO EVERY 6 HOURS NEEDED as needed for Pain 12 3 0 February 08, 2021 February 11, 2024 10:58am Trochanteric bursitis of right hip Trochanteric bursitis, right hip Start: 02-08-2021 take 1 tablet by [place] every six hours as needed Hydrocodone-Acetaminophen Active 1 TABLE T PO EVERY 6 HOURS NEEDED 12 3 February 08, 2021 Start: 08-22-2012 End: 01-05-2014 Start: 08-22-2012 End: 01-05-2014 take 1-2 tablets by mouth every six hours as needed VICODIN, 5-500MG (Oral Tablet) 1-2 Table t every 6hours prn for 0 days Quantity: 20 {Tablet} Refills: 0 Ordered: 22-Aug-2012 Joyce Roe MD, MD, Joyce Rajan Start : 22-Aug-2012 End : 05-Jan-2014 Discontinued Comments: This order discontinued per [facility]. Comment on above: This order discontin ued per [facility]. alendronic acid 35 mg oral tablet (20 sources) Bisphosphonate End: 7 amLODIPine 10 mg oral tablet (20 sources) Dihydropyridine Calcium Channel [facility] Start: 5 End: 5 take 5 mg by mouth once daily Amlodipine 10 mg tablet Discontinued 5 mg PO DAILY March 29, 2025 2:07pm March 29, 2025 2:32pm Start: 03-14-2020 End: 01-07-2021 take 5 mg by mouth once daily Amlodipine 10 mg tablet Discontinued 5 mg PO DAILY 90 3 March 14, 2020 9:50am January 07, 2021 9:33am Start: 03-14-2020 End: 01-07-2021 take 5 mg by mouth once daily Amlodipine Discontinued 5 MG PO DAILY 90 March 14, 2020 8:50am January 07, 2021 8:33am Start: 01-22-2020 End: 03-29-2025 take 1 tablet by mouth once daily Amlodipine 10 mg tablet Discontinued 10 mg PO DAILY 90 4 May 25, 2024 9:31am March 29, 2025 2:10pm Start: 04-26-2013 End: 05-27-2013 Start: 04-21-2013 End: 10-10-2024 take 1 tablet by mouth once daily Amlodipine 5 mg tablet Discontinued 5 mg PO daily 90 3 December 22, 2019 3:49pm January 22, 2020 11:44am Comment on above: per dr barney amoxicillin 875 mg / clavula shamar 125 mg oral tablet (20 sources) Penicillin-class Antibacterial Start: 08-27-2017 End: 10-26-2017 Start: 08-27-2017 End: 10-26-2017 take 1 tablet by mouth twice daily Augmentin 875-125 MG Oral Tablet 1 (one) Tablet bid for 0 days Quantity: 20 {Tablet} Refills: 0 Ordered: 26-Oct-2017 BARBER Lowery LPN Start : 27-Aug-2017 End : 26-Oct-2017 Inactive ascorbic acid 500 mg oral ta blet (20 sources) Vitamin C End: 05-01-2009 ascorbic acid 60 mg / beta c arotene 5000 unt / copper sulfate 40 mg / dl-alpha tocopheryl acetate 30 unt / sodium selenite 0.04 mg / zinc oxide 40 mg oral tablet (13 sources) Vitamin C End: 07-31-2019 End: 07-31-2019 take 1 tablet by mouth once daily Centrum Silver Oral Tablet 1 tab qd for 0 days Refills: 0 Ordered: 31-Jul-2019 BARBER Lowery LPN End : 31-Jul-2019 Inactive atenolol 25 mg oral tablet (20 sources) beta-Adrenergic [facility] Start: 02-11-2024 End: 04-10-2024 Atenolol 25 mg tablet Discontinued 12.5 mg PO daily 45 3 February 11, 2024 11:26am April 10, 2024 4:27pm Start: 01-17-2014 take 0.5 tablet by m outh once daily ATENOLOL 50 MG TABS 1/2 tablet by mouth daily ATENOLOL [id number] Saúl Barney MD Start: 03-02-2012 take 1 tablet by [place] once daily ATENOLOL 50 MG TABS One tablet by mouth daily ATENOLOL [id number] Saúl Barney MD Start: 02-08-2008 End: 03-29-2025 take 1 tablet by mouth once daily Atenolol 25 mg tablet Discontinued 25 mg PO daily 90 3 May 04, 2024 1:01pm March 29, 2025 2:14pm B complex (5 sources) B complex Active bifidobacterium infantis 4 mg oral capsule (20 sources) Start: 011 End: 012 budesonide 3 mg delayed release oral capsule (12 sources) Corticosteroid Start: 025 End: 025 take 3 capsules by mouth once daily in the morning Budesonide 3 mg capsule,delayed,ext end.release Discontinued 9 mg PO EVERY MORNING 90 1 October 26, 2024 10:57am March 29, 2025 2:08pm calcium (20 sources) Phosphate Binder, Calcium Start: 016 Start: 06-12-2016 take 2 tablets by mo [facility] once daily Calcium 500 MG Oral Tablet 2 (two) Tablet qd for 0 days Quantity: 60 {Tablet} Refills: 0 Ordered: 12-Jun-2016 Arden FRAUSTO, Joyce Roe MD, Joyce Rajan Start : 12-Jun-2016 Active Start: 03-31-2013 take 1 tablet by [place] once daily CALCIUM 1000 + D 1000-800 MG-UNIT TABS One tablet by mouth daily CALCIUM CARB-CHOLECALCIFEROL [id number] Duran [facility] Start: 03-31-2013 take 1 tablet by [place] once daily CALCIUM 1000 + D 1000-800 MG-UNIT TABS One tablet by mouth daily CALCIUM CARB-CHOLECALCIFEROL [id number] [facility] calcium carbonate / vitamin D (8 sources) Start: 03-31-2013 take 1 tablet by mouth once daily CALCIUM + D 600-200 MG-UNIT TABS One tablet by mouth daily CALCIUM CARBONATE-VITAMIN D Saúl Barnye MD Start: 03-31-2013 take 1 tablet by [place] once daily CALCIUM + D 600-200 MG-UNIT TABS One tablet by mouth daily CALCIUM CARBONATE-VITAMIN D Saúl Barney MD Centrum Silver (20 sources) End: 07-31-2019 take 1 tablet by mouth once rae y CENTRUM SILVER (Oral Tablet) 1 tab qd for 0 days Refills: 0 Ordered: 27-May-2009 Noa Decker Active CENTRUM SILVER (Oral Tablet) (14 sources) take 1 tablet by [place] once daily CENTRUM SILVER (Oral Tablet) 1 tab qd for 0 days Refills: 0 Ordered: 27-May-2009 Active take 1 tablet by mouth once rae y CENTRUM SILVER (Oral Tablet) 1 tab qd for 0 days Refills: 0 Ordered: 27-May-2009 Noa Decker Active cimetidine 400 mg oral tablet (14 sources) Histamine-2 Receptor Antagonist Start: 03-13-2016 End: 01-21-2017 take 1 tablet by mouth once daily CIMETIDINE 400 MG TABS One tablet by mouth daily at night CIMETIDINE [id number] Duran Hutchins DO ciprofloxacin 500 mg oral tablet (20 sources) Quinolone Antimicrobial Start: 06-26-2024 End: 09-26-2024 take 1 tablet by mouth twice daily Ciprofloxacin Hcl (Cipro) 500 mg tablet Discontinued 500 mg PO TWICE A DAY June 26, 2024 12:00am September 26, 2024 4:04pm Start: 07-05-2023 End: 07-05-2023 Start: 06-28-2020 Start: 01-30-2020 Ciprofloxacin HCl 500 MG Oral Tablet 1 (one) Tablet prn as needed as directed for 0 days Quantity: 30 {Tablet} Refills: 3 Ordered: 30-Jan-2020 Arden FRAUSTO, Joyce Kapadia MD Start : 30-Jan-2020 Active Comments: Medication taken as needed. Start: 02-02-2019 Ciprofloxacin HCl 500 MG Oral Tablet uad Tablet following intercourse prn for 0 days Quantity: 30 {Tablet} Refills: 3 Ordered: 02-Feb-2019 Arden FRAUSTO, Joyce Roe MD, Joyce Rajan Start : 02-Feb-2019 Active Start: 04-12-2018 End: 08-01-2018 Start: 03-02-2016 End: 01-21-2017 take 1 tablet by mouth twice daily as needed CIPROFLOXACIN HCL 500 MG TABS One tablet by mouth twice daily after intercourse as needed CIPROFLOXACIN HCL [id number] Duran Hutchins DO Start: 06-06-2014 End: 06-16-2014 take 1 tablet by mouth twice daily CIPROFLOXACIN HCL, 500MG (Oral Tablet) 1 (one) Tablet bid for 10 days Quantity: 20 {Tablet} Refills: 0 Ordered: 06-Jun-2014 Diana Escalera CNP Start : 06-Jun-2014 End : 16-Jun-2014 Inactive Comment on above: Medication taken as needed. 24 hr clarithromycin 500 mg extended release oral tablet (20 sources) Macrolide Antimicrobial Start: 03-15-2007 End: 04-28-2007 Start: 03-15-2007 End: 04-28-2007 take 2 tablets by mouth once daily BIAXIN XL PAC, 500MG (Oral Tablet Extended Release 24 Hour) 2 (two) Tablet ER 24HR Daily for 10 days Quantity: 20 {Tablet_ER_24HR} Refills: 0 Ordered: 15-Mar-2007 TAL CUELLAR CNP Start : 15-Mar-2007 End : 28-Apr-2007 Inactive Start: 03-15-2007 End: 04-28-2007 take 2 tablets by mouth once daily BIAXIN XL PAC, 500MG (Oral Tablet Extended Release 24 Hour) 2 (two) Tablet ER 24HR Daily for 10 days Quantity: 20 {Tablet_ER_24HR} Refills: 0 Ordered: 15-Mar-2007 TAL CUELLAR CNP Start : 15-Mar-2007 End : 28-Apr-2007 Inactive clopidogrel 75 mg oral tablet (13 sources) [id number] Platelet Inhibitor Start: 01-09-2020 End: 01-26-2020 take 1 tablet by mouth once daily Clopidogrel 75 mg tablet Discontinued 75 mg PO DAILY 30 January 09, 2020 12:00am January 26, 2020 10:50am codeine phosphate 2 mg/ml / guaiFENesin 20 mg/ml oral solution (20 sources) Opioid Agonist Start: 04-28-2007 End: 05-01-2009 Start: 04-28-2007 End: 05-01-2009 GUAIATUSSIN AC, 100-10MG/5ML (Oral Syrup) 1-2 teaspoon(s) q6 hours prn for 0 days Quantity: 4 {oz} Refills: 0 Ordered: 28-Apr-2007 Start : 28-Apr-2007 End : 01-May-2009 Inactive colestipol hydrochloride 1000 mg oral tablet (12 sources) Bile Acid Sequestrant Start: 07-12-2024 End: 09-26-2024 Colestipol 1 gram tablet Discontinued 1 g PO TWICE A DAY 60 2 July 12, 2024 2:52pm September 26, 2024 4:04pm Start: 07-12-2024 End: 07-12-2024 Colestipol 1 gram tablet Dis continued 1 g PO ONCE 60 2 July 12, 2024 1:00am July 12, 2024 2:55pm cyclobenzaprine hydrochlorid e 10 mg oral tablet (20 sources) Muscle Relaxant Start: 09-04-2019 End: 01-30-2020 Start: 12-22-2018 take 1 tablet by [place] th once daily as needed Cyclobenzaprine HCl 10 MG Oral Tablet 1 (one) Tablet qd prn for 0 days Quantity: 20 {Tablet} Refills: 0 Ordered: 22-Dec-2018 Arden FRAUSTO, Joyce Kapadia MD Start : 22-Dec-2018 Active Start: 08-23-2012 End: 08-23-2012 Comment on above: twenty, per formular y desonide 0.5 mg/ml topical c ream (20 sources) Corticosteroid Start: 03-18-2017 End: 01-18-2018 Start: 03-18-2017 End: 01-18-2018 DesOwen 0.05 % External Crea m 1 (one) Application Application apply bid for 0 days Quantity: 1 {Tube} Refills: 0 Ordered: 18-Jan-2018 BARBER Lowery LPN Start : 18-Mar-2017 End : 18-Jan-2018 Inactive diclofenac sodium 0.01 mg/mg topical gel (20 sources) Nonsteroidal Anti-inflammatory Drug Start: 06-30-2022 Start: 12-17-2010 End: 01-05-2011 Start: 12-17-2010 End: 01-05-2011 VOLTAREN, 1% (Transdermal Ge l) 4 Gram(s) qid for 0 days Quantity: 1 {Gel} Refills: 3 Ordered: 05-Jan-2011 Sharmaine Benedict LPN Start : 17-Dec-2010 End : 05-Jan-2011 Inactive docosahexaenoic acid 120 mg / eicosapentaenoic acid 180 mg oral capsule (20 sources) esomeprazole 20 mg delayed r elease oral capsule (20 sources) Proton Pump Inhibitor Start: 07-24-2019 End: 07-31-2019 Start: 03-20-2011 End: 03-30-2011 Start: 03-20-2011 End: 03-30-2011 NEXIUM, 40MG (Oral Capsule D elayed Release) [address] daily for 10 days Quantity: 10 {Capsule_DR} Refills: 0 Ordered: 01-May-2011 BARBER Lowery LPN Start : 20-Mar-2011 End : 30-Mar-2011 Inactive fexofenadine hydrochloride 180 mg oral tablet (20 sources) Histamine-1 Receptor Antagonist Start: 01-28-2007 End: 05-01-2009 fish oil (16 sources) Start: 03-02-2016 take 1 capsule by mouth once daily FISH OIL 1000 MG CAPS 1 capsule by mouth daily OMEGA-3 FATTY ACIDS [id number] Duran Hutchins DO Start: 03-02-2016 take 1 capsule by mo [facility] once daily FISH OIL 1000 MG CAPS 1 capsule by mouth daily OMEGA-3 FATTY ACIDS [id number] Duran Hutchins DO gabapentin 300 mg oral capsule (20 sources) Anti-epileptic Agent Start: 06-07-2015 End: 06-07-2015 Comment on above: thirty Ynnjrgkx-Ptkv-Spe7-C- Kristie-Bosw (Osteo Bi-Flex Triple Strength) 750 mg-644 mg- 30 mg-1 mg tablet (13 sources) Start: 12-16-2017 End: 01-10-2019 Zmzixzix-Qrfa-Mes0-C-Ma ng-Bosw (Osteo Bi-Flex Triple Strength) 750 mg-644 mg- 30 mg-1 mg tablet Discontinued TABLET PO December 16, 2017 11:22am January 10, 2019 2:53pm Start: 12-16-2017 End: 01-10-2019 Aadksroo-Qpzm-Chw3-C-Kristie-Rodger sw (Osteo Bi-Flex Triple Strength) 750 mg-644 mg- 30 mg-1 mg tablet Discontinued {tbl} PO 0 December 16, 2017 12:00am January 10, 2019 2:53pm Start: 12-16-2017 End: 01-10-2019 Ydamopcz-Fbnu-Kse9-C-Kristie-Rodger sw (Osteo Bi-Flex Triple Strength) 750 mg-644 mg- 30 mg-1 mg tablet Discontinued {tbl} PO December 16, 2017 12:00am January 10, 2019 2:53pm Start: 12-16-2017 End: 01-10-2019 Bguzroah-Utsu-Xmk4-C-Kristie-Rodger sw (Osteo Bi-Flex Triple Strength) 750 mg-644 mg- 30 mg-1 mg tablet Discontinued TABLET PO December 16, 2017 12:00am January 10, 2019 2:53pm Start: 12-16-2017 End: 01-10-2019 Jbjlsiia-Sbia-Kzf7-C-Kristie-Rodger sw (Osteo Bi-Flex Triple Strength) 750 mg-644 mg- 30 mg-1 mg tablet Discontinued TABLET PO December 15, 2017 11:00pm January 10, 2019 1:53pm hydroCHLOROthiazide 25 mg / triamterene 37.5 mg oral capsule (18 sources) Potassium-sparing Diuretic, Thiazide Diuretic Start: 12-25-2021 End: 07-05-2023 Start: 08-11-2021 iv contrast (will be provided with radiology test) (8 sources) Start: 10-17-2024 End: 03-23-2025 inject 1 dose intravenously once iv contrast (will be provided with radiology test) Indications: Intracranial meningioma (HCC) MRI Brain Inject, intravenously, once for 1 dose.No IV access, insert saline lock prior to beginning of sedation, infusion, injection of imaging exam.Discontinue saline lock post exam. If Pt. has a central line or IVAD, may access for administration according to line specific nursing protocol.Once exam is complete flush line and de-access according to line specific nursing protocol in the MR contrast administration guidelines link 1 Each 10/17/2024 03/23/2025 Discontinued Start: 10-17-2024 inject 1 dose intravenously on ce iv contrast (will be provided with radiology test) Indications: Intracranial meningioma (HCC) MRI Brain Inject, intravenously, once for 1 dose.No IV access, insert saline lock prior to beginning of sedation, infusion, injection of imaging exam.Discontinue saline lock post exam. If Pt. has a central line or IVAD, may access for administration according to line specific nursing protocol.Once exam is complete flush line and de-access according to line specific nursing protocol in the MR contrast administration guidelines link 1 Each 10/17/2024 Active Start: 10-10-2024 End: 10-17-2024 inject 1 dose intravenously once iv contrast (will be provided with radiology test) Indications: Intracranial meningioma (HCC) , Benign neoplasm of meninges (HCC) MRI Brain Inject, intravenously, once for 1 dose.No IV access, insert saline lock prior to beginning of sedation, infusion, injection of imaging exam.Discontinue saline lock post exam. If Pt. has a central line or IVAD, may access for administration according to line specific nursing protocol.Once exam is complete flush line and de-access according to line specific nursing protocol in the MR contrast administration guidelines link 1 Each 10/10/2024 10/17/2024 Discontinued (Course of therapy completed) Start: 10-10-2024 inject 1 dose intravenously on ce iv contrast (will be provided with radiology test) Indications: Intracranial meningioma (HCC) , Benign neoplasm of meninges (HCC) MRI Brain Inject, intravenously, once for 1 dose.No IV access, insert saline lock prior to beginning of sedation, infusion, injection of imaging exam.Discontinue saline lock post exam. If Pt. has a central line or IVAD, may access for administration according to line specific nursing protocol.Once exam is complete flush line and de-access according to line specific nursing protocol in the MR contrast administration guidelines link 1 Each 10/10/2024 Active Start: 10-10-2024 End: 10-10-2024 inject 1 dose intravenously once iv contrast (will be provided with radiology test) Indications: Intracranial meningioma (HCC) , Benign neoplasm of meninges (HCC) MRI Brain Inject, intravenously, once for 1 dose.No IV access, insert saline lock prior to beginning of sedation, infusion, injection of imaging exam.Discontinue saline lock post exam. If Pt. has a central line or IVAD, may access for administration according to line specific nursing protocol.Once exam is complete flush line and de-access according to line specific nursing protocol in the MR contrast administration guidelines link 1 Each 10/10/2024 10/10/2024 Discontinued loratadine 10 mg oral capsul e (20 sources) Start: 04-27-2014 End: 06-07-2015 meloxicam 15 mg oral tablet (20 sources) Nonsteroidal Anti-inflammatory Drug Start: 01-11-2020 End: 01-30-2020 Start: 09-03-2015 End: 06-12-2016 Comment on above: take with food Metanx (14 sources) Start: 02-02-2019 End: 07-31-2019 Metanx (algal oil) (8 sources) Start: 02-02-2019 End: 07-31-2019 Metanx 3-90.314-2-35 MG Oral Capsule (20 sources) Start: 02-02-2019 End: 07-31-2019 take 1 capsule by mouth once daily Metanx 3-90.314-2-35 MG Oral Capsule 1 (one) Capsule daily for 0 days Quantity: 90 {Capsule} Refills: 3 Ordered: 31-Jul-2019 BARBER Lowery LPN Start : 02-Feb-2019 End : 31-Jul-2019 Inactive Comments: Mail order. Start: 02-02-2019 take 1 capsule by mo [facility] once daily Metanx 3-90.314-2-35 MG Oral Capsule 1 (one) Capsule daily for 0 days Quantity: 90 {Capsule} Refills: 3 Ordered: 02-Feb-2019 Joyce Roe MD, MD, Dana M Start : 02-Feb-2019 Active Comments: Mail order. Start: 02-02-2019 take 1 capsule by mo [facility] once daily Metanx 3-90.314-2-35 MG Oral Capsule 1 (one) Capsule daily for 0 days Quantity: 30 {Capsule} Refills: 0 Ordered: 02-Feb-2019 Joyce Roe MD, MD, Dana M Start : 02-Feb-2019 Active Comment on above: Mail order. metaxalone 800 mg oral table t (20 sources) Start: 05-01-2009 methylPREDNISolone 4 mg oral tablet (20 sources) Corticosteroid Start: 03-04-2018 End: 07-12-2018 Start: 03-29-2015 End: 06-07-2015 Start: 03-29-2015 End: 06-07-2015 MEDROL (MARILOU), 4MG (Oral Tabl et) 1 (one) Tablet uad for 0 days Quantity: 1 {Package} Refills: 0 Ordered: 07-Jun-2015 BARBER Lowery LPN Start : 29-Mar-2015 End : 07-Jun-2015 Inactive Start: 11-26-2011 End: 04-06-2012 Start: 11-26-2011 End: 04-06-2012 METHYLPREDNISOLONE (MARILOU), 4M G (Oral Tablet) 1 Tablet uad for 0 days Quantity: 1 {Tablet} Refills: 0 Ordered: 06-Apr-2012 Melissa Mott RN Start : 26-Nov-2011 End : 06-Apr-2012 Inactive 24 hr metoprolol succinate 2 5 mg extended release oral tablet (20 sources) beta-Adrenergic [place] Start: 06-07-2015 End: 06-07-2015 Start: 01-01-2014 End: 01-17-2014 take 1 tablet by mouth once daily METOPROLOL SUCCINATE ER 25 MG [id number] One tablet by mouth daily METOPROLOL SUCCINATE [id number] Saúl Barney MD metroNIDAZOLE 500 mg oral tablet (6 sources) Nitroimidazole Antimicrobial Start: 06-26-2024 End: 09-26-2024 take 1 tablet by mouth every eight hours Metronidazole 500 mg tablet Discontinued 500 mg PO Q8H 36 0 June 26, 2024 12:00am September 26, 2024 4:05pm mometasone furoate 0.05 mg/actuat metered dose nasal spray (20 sources) Corticosteroid Start: 04-27-2014 End: 06-07-2015 Start: 04-27-2014 End: 06-07-2015 take 2 puff(s) by inhalation once daily NASONEX, 50MCG/ACT (Nasal Suspension) 2 (two) Puff Puff daily for 0 days Quantity: 1 {Inhaler} Refills: 0 Ordered: 07-Jun-2015 BARBER Lowery LPN Start : 27-Apr-2014 End : 07-Jun-2015 Inactive Start: 04-27-2014 End: 06-07-2015 NASONEX, 50MCG/ACT (Nasal Suspension) 2 (two) Puff Puff daily for 0 days Quantity: 1 {Inhaler} Refills: 0 Ordered: 07-Jun-2015 BARBER Lowery Start : 27-Apr-2014 End : 07-Jun-2015 Inactive MULTIPLE VITAMIN (20 sources) Start: 07-13-2014 take 1 tablet by mouth once daily MULTIVITAMINS TABS One tablet by mouth daily MULTIPLE VITAMIN [place] Start: 07-13-2014 End: 01-21-2017 take 1 tablet by mouth once daily MULTIVITAMINS TABS One tablet by mouth daily MULTIPLE VITAMIN [place] Stacie Barney MD Start: 07-13-2014 End: 01-21-2017 take 1 tablet by mouth once daily MULTIVITAMINS TABS One tablet by mouth daily MULTIPLE VITAMIN Saúl Stacie Barney MD Start: 07-13-2014 take 1 tablet by [place] once daily MULTIVITAMINS TABS One tablet by mouth daily MULTIPLE VITAMIN Saúl Stacie Barney MD Start: 12-10-2010 take 1 tablet by [place] once daily MULTIVITAMINS TABS One tablet by mouth daily MULTIPLE VITAMIN [id number] Graciela Cheney Start: 12-10-2010 End: 03-02-2012 take 1 tablet by mouth once daily MULTIVITAMINS TABS One tablet by mouth daily MULTIPLE VITAMIN [id number] Saúl Barney MD MULTIPLE VITAMIN (4 sources) Start: 12-10-2010 take 1 tablet by mouth once daily MULTIVITAMINS TABS One tablet by mouth daily MULTIPLE VITAMIN [id number] Graciela Cheney Start: 12-10-2010 End: 03-02-2012 take 1 tablet by mouth once daily MULTIVITAMINS TABS One tablet by mouth daily MULTIPLE VITAMIN [id number] Saúl Barney MD multivitamins w-minerals/lut(CENTRUM SILVER TAB) (2 sources) Start: 02-08-2008 End: 10-10-2024 multivitamins w-minerals/lut(CENTRUM SILVER TAB) Take one(1) tablet daily. 0 02/08/2008 10/10/2024 Discontinued Start: 02-08-2008 multivitamins w-minerals/lut(CENTRUM SILVER TAB) Take one(1) tablet daily. 0 02/08/2008 Active naproxen 500 mg oral tablet (20 sources) Nonsteroidal Anti-inflammatory Drug Start: 02-08-2021 End: 02-26-2023 take 1 tablet by mouth twice daily Naproxen 500 MG tablet Discontinued 500 mg PO TWICE A DAY February 08, 2021 12:00am February 26, 2023 2:35pm Start: 12-13-2017 End: 03-04-2018 Start: 05-01-2011 End: 11-26-2011 Start: 12-17-2010 End: 11-26-2011 Comment on above: take with food nitrofurantoin, macrocrystals 25 mg / nitrofurantoin, monohydrate 75 mg oral capsule (1 source) Nitrofuran Antibacterial Start: 03-18-20 11 End: 03-20-20 11 take 1 capsule by mouth twice daily MACROBID, 100MG (Oral Capsule) 1 Capsule bid for 7 days Quantity: 14 {Capsule} Refills: 0 Ordered: 20-Mar-2011 Melissa Mott LPN Start : 18-Mar-2011 End : 20-Mar-2011 Inactive nitrofurantoin, macrocrystals 25 mg / nitrofurantoin, monohydrate 75 mg oral capsule (20 sources) Nitrofuran Antibacterial Start: 03-18-20 End: 03-20-20 11 [place] 8-Cdw-Oxu-Fish Oil ([place]-3) 350 mg-235 mg- 90 mg-597 mg capsule,delayed release(DR/EC) (6 sources) Start: 06-24-20 24 End: 09-26-19 25 [place] 8-Rss-Sno-Fish Oil ([place]-3) 350 mg-235 mg- 90 mg-597 mg capsule,delayed release(DR/EC) Discontinued 1 NMA PO DAILY June 24, 2024 12:00am September 26, 2024 4:05pm OMEGA 3-VITAMIN E-FISH OIL 700 MG-15 UNIT-1,100 MG CAP (2 sources) Start: 02-08-20 08 End: 10-10-19 25 OMEGA 3-VITAMIN E-FISH OIL 700 MG-15 UNIT-1,100 MG CAP 0 02/08/2008 10/10/2024 Discontinued Start: 02-08-2008 OMEGA 3-VITAMI N E-FISH OIL 700 MG-15 UNIT-1,100 MG CAP 0 02/08/2008 Active omega-3 acid ethyl esters ([facility]) 1000 mg oral capsule (20 sources) Start: 12-16-2017 End: 06-24-2024 take 1 capsule by mouth once daily [place] 8-Yfs-Lrf-Fish Oil (Fish Oil) 1,000 mg (120 mg-180 mg) capsule Discontinued 1000 mg PO DAILY 0 January 09, 2020 9:23am June 24, 2024 12:41pm GLUCOSAMINE-CHONDROI TIN TABS (8 sources) Start: 01-16-2016 take 1 tablet by mouth once daily OSTEO BI-FLEX REGULAR STRENGTH TABS One tablet by mouth daily GLUCOSAMINE-CHONDROITIN TABS [id number] Saúl Barney MD Start: 01-16-2016 take 1 tablet by [place] once daily OSTEO BI-FLEX REGULAR STRENGTH TABS One tablet by mouth daily GLUCOSAMINE-CHONDROITIN TABS [id number] Saúl Barney MD Osteo Bi-Flex Adv Triple St (17 sources) take 1 tablet by mouth once rae y Osteo Bi-Flex Adv Triple St Oral Tablet 1 qd Active Osteo Bi-Flex Adv Triple St Oral Tablet (20 sources) take 1 tablet by [place] once daily Osteo Bi-Flex Adv Triple St Oral Tablet 1 qd Inactive take 1 tablet by mouth once rae y Osteo Bi-Flex Adv Triple St Oral Tablet 1 qd Active Osteo Bi-Flex Triple Strengt h (8 sources) Paxlovid 20 x 150 MG & 10 x 100MG Oral Tablet Therapy Pack (9 sources) Start: 03-12-2022 End: 03-17-2022 Start: 03-12-2022 Paxlovid 20 x 150 MG & 10 x 100MG Oral Tablet Therapy Pack (5 sources) Start: 03-12-2022 End: 03-17-2022 phenazopyridine hydrochloride 100 mg oral tablet (20 sources) Start: 06-06-2014 End: 06-08-2014 microencapsulated potassium chloride 20 meq extended release oral tablet (4 sources) Start: 03-29-2025 End: 03-29-2025 take 1 tablet by mouth once daily Potassium Chloride 20 mEq tablet,ER particles/crystals Discontinued 20 meq PO daily March 29, 2025 12:00am March 29, 2025 2:32pm Start: 02-04-2025 KLOR-CON M20 2 0 mEq tablet 02/04/2025 Active raNITIdine 150 mg oral tablet (20 sources) Histamine-2 Receptor Antagonist Start: 08-01-2018 End: 01-09-2020 take 1 tablet by mouth once daily in the morning Ranitidine Hcl (Acid Control (Ranitidine)) 150 mg tablet Discontinued 150 mg PO EVERY MORNING January 10, 2019 12:00am January 09, 2020 9:24am Start: 03-01-2017 take 1 tablet by [place] twice daily Zantac 150 MG Oral Tablet 1 (one) Tablet bid for 0 days Quantity: 180 {Tablet} Refills: 3 Ordered: 01-Mar-2017 Arden FRAUSTO, Joyce Roe MD, Joyce Rajan Start : 01-Mar-2017 Active simvastatin 20 mg oral tablet (20 sources) HMG-CoA Reductase Inhibitor Start: 02-08-2008 End: 10-10-2024 take 1 tablet by mouth once daily in the morning Simvastatin (Zocor) 20 mg tablet Discontinued 20 mg PO EVERY MORNING 90 3 February 19, 2020 10:51am January 07, 2021 9:33am Comment on above: been off it and no c hange in muscle feeling. sulfamethoxazole 800 mg / trimethoprim 160 mg oral tablet (20 sources) Dihydrofolate Reductase Inhibitor Antibacterial, Sulfonamide Antimicrobial Start: 12-27-2013 End: 01-03-2014 Start: 12-27-2013 End: 01-03-2014 take 1 tablet by mouth twice daily BACTRIM DS, 800-160MG (Oral Tablet) 1 (one) Tablet bid for 7 days Quantity: 14 {Tablet} Refills: 0 Ordered: 27-Dec-2013 Diana Escalera CNP Start : 27-Dec-2013 End : 03-Jan-2014 Inactive tiZANidine 4 mg oral capsule (20 sources) Central alpha-2 Adrenergic Agonist Start: 08-23-2012 End: 01-05-2014 Comment on above: twenty, in place of flexeril traMADol hydrochloride 50 mg oral tablet (20 sources) Opioid Agonist Start: 03-04-2023 End: 07-05-2023 Start: 01-18-2023 Start: 12-13-2017 End: 01-18-2018 Start: 12-13-2017 End: 01-18-2018 take 10 tablets by mouth every six hours as needed for pain TraMADol HCl 50 MG Oral Tablet 1-2 Tablet every 6 hours as needed for pain for 0 days Quantity: 10 {Tablet} Refills: 0 Ordered: 18-Jan-2018 BARBER Lowery LPN Start : 13-Dec-2017 End : 18-Jan-2018 Inactive Comments: Medication taken as needed. ten Comment on above: Medication taken as needed. ten triamcinolone acetonide 0.05 5 mg/actuat metered dose nasal spray (20 sources) Corticosteroid Start: 01-28-2007 End: 05-01-2009 Start: 01-28-2007 End: 05-01-2009 Start: 01-28-2007 End: 05-01-2009 NASACORT AQ, 55MCG/ACT (Nasa l Aerosol Solution) 2 (two) Aerosol Soln qd for 0 days Refills: 0 Ordered: 28-Jan-2007 Start : 28-Jan-2007 End : 01-May-2009 Inactive Start: 01-28-2007 End: 05-01-2009 NASACORT AQ, 55MCG/ACT (Nasa l Aerosol Solution) 2 (two) Aerosol Soln qd for 0 days Refills: 0 Ordered: 28-Jan-2007 Noa Decker Start : 28-Jan-2007 End : 01-May-2009 Inactive Turmeric extract (20 sources) Start: 06-24-2024 End: 09-26-2024 take 1 capsule by mouth once daily Turmeric 400 mg capsule Discontinued 400 mg PO DAILY June 24, 2024 12:00am September 26, 2024 4:05pm Start: 01-08-2022 End: 02-26-2023 take 1 capsule by mouth once daily Turmeric 400 mg capsule Discontinued 400 mg PO DAILY January 08, 2022 12:00am February 26, 2023 2:37pm Start: 01-08-2022 End: 02-26-2023 take 400 mg by mouth once daily Turmeric Discontinued 400 MG PO DAILY January 07, 2022 11:00pm February 26, 2023 1:37pm Start: 01-08-2022 take 400 mg by mouth once rae y Turmeric Active 400 MG PO DAILY January 08, 2022 12:00am Start: 01-08-2022 take 400 mg by mouth once rae y Turmeric Active 400 MG PO DAILY January 07, 2022 11:00pm End: 03-23-2025 TURMERIC ORAL Take by mouth once daily. 03/23/2025 Discontinued TURMERIC ORAL Ta ke by mouth once daily. Active vitamin d 1000 unt oral tablet (20 sources) Start: 12-10-2010 End: 03-02-2016 take 1 tablet by mouth once daily VITAMIN D 1000 UNIT TABS One tablet by mouth daily CHOLECALCIFEROL [id number] Duran Hutchins DO Start: 12-10-2010 take 1 tablet by [place] once daily VITAMIN D 1000 UNIT TABS One tablet by mouth daily CHOLECALCIFEROL [id number] Graciela Cheney Start: 12-10-2010 End: 03-02-2016 take 1 tablet by mouth once daily VITAMIN D 1000 UNIT TABS One tablet by mouth daily CHOLECALCIFEROL [id number] Duran Hutchins DO End: 06-12-2016 take 1 tablet by mouth once daily VITAMIN D, 400UNIT (Oral Tablet) 1 tab qd for 0 days Refills: 0 Ordered: 12-Jun-2016 BARBER Lowery LPN End : 12-Jun-2016 Discontinued Comments: This order discontinued per [facility]. Comment on above: This order discontin ued per [employer]. Vitamin D3 (8 sources) (9 sources) Problems Active Problems Problem Classification Problem Date Documented Da te Episodic/Chronic Abdominal pain (20 sources) Abdominal tenderness; Translations: [Generalized abdominal pain] Resolved: 7 01-26-2017 Episodic Comment on above: no other cause for t his in stomach but boniva. will stop will use PPI for 4 weeks. some better will wait another week if still alot issue then check UGI and hpylori Acute myocardial infarction (7 sources) Acute myocardial infarction of inferior wall; Translations: [ST elevation (STEMI) myocardial infarction involving other coronary artery of inferior wall] Onset: 8 03-16-2024 Chronic Allergic reactions (20 sources) Eruption due to drug; Translations: [Rash, drug] Resolved: 5 01-10-2015 Episodic Comment on above: ? which drug bactrim which finished 3 days ago or new metoprolol which started 3 days agoSTop bactrim give solumed x 1 suggest stop metoprolol go back on Atenolol if ok with Savita. Blindness and vision defects (20 sources) Sudden visual loss; Translations: [Acute loss of vision, left] Resolved: 7 07-06-2017 Episodic Comment on above: not felt stro ke to eye. hole in retina and laser. check carotids. Cardiac dysrhythmias (10 sources) Bradycardia; Translations: [Bradycardia] 06-28-2020 Chronic Comment on above: runs low in HR now h as good exercie tolerance Cardiac dysrhythmias (20 sources) Bradycardia; Translations: [Bradycardia] 01-17-2021 Episodic Chronic kidney disease (20 sources) Chronic kidney disease stage 4; Translations: [CKD (chronic kidney disease), stage IV] 12-25-2021 Chronic Chronic obstructive pulmonary disease and bronchiectasis (20 sources) Bronchitis; Translations: [Bronchitis] Resolved: 9 06-11-2015 Episodic Comment on above: viral vs bronchitis vs allergies? treat with antibiotic if worsens or does not improve pt to return. Chronic obstructive pulmonary disease and bronchiectasis (20 sources) Chronic obstructive pulmonary disease and bronchiectasis Complication of device; implant or graft (8 sources) Arteriosclerosis of coronary artery bypass graft; Translations: [Atherosclerosis of coronary artery bypass graft(s) without angina pectoris] Onset: 6 03-02-2016 Chronic Coronary atherosclerosis and other heart disease (20 sources) Coronary arteriosclerosis; Translations: [Coronary atherosclerosis] Onset: 8 Resolved: 6 12-10-2010 Chronic Comment on above: PTCA 1999/ h/o cabg -vessel Dr. barney. no signs and symptomsPTCA 1998/ h/o cabg vessel Dr. barney. has some exercise intolerance so plan cath 5-18PTCA 1998/ h/o cabg -vessel sees Dr. barney.PTCA 1998/ h/o cabg -vessel, cath 6- stable Coronary atherosclerosis and other heart disease (20 sources) Coronary atherosclerosis and other heart disease Diabetes mellitus without complication (20 sources) Impaired fasting glycaemia; Translations: [Abnormal glucose level] 03-04-2018 Episodic Comment on above: cut back sweets alre jacob exercise. Diseases of white blood cells (20 sources) Leukocytosis; Translations: [Leukocytosis, unspecified type] Resolved: 8 03-04-2018 Chronic Comment on above: think medrol dose ak no signs and symptoms recheck Disorders of lipid metabolism (20 sources) Hyperlipidemia; Translations: [Hypercholesterolemia] Onset: 1 12-10-2010 Chronic Comment on above: reveiwed with patien t recent tests and LDL went up and compsoition worsen off statin. off stastin nnot have change in joint pain. not that. will restart it reveiwed with patien t good reveiwed with patien t good. hdl little low. lauren about eercise, adding fiber and littel red E Codes: Fall (20 sources) Fall; Translations: [Fall, initial encounter] Resolved: 8 08-01-2018 Episodic Esophageal disorders (20 sources) Gastroesophageal reflux disease; Translations: [GERD (gastroesophageal reflux disease)] Onset: 6 03-02-2016 Chronic Comment on above: controlled on PPIhad since 2012 Essential hypertension (20 sources) Hypertensive disorder; Translations: [Hypertension] Onset: 6 03-02-2016 Chronic Comment on above: savita increase norva sc to 10 mg. now good. Gastritis and duodenitis (20 sources) Acute gastritis, without mention of hemorrhage; Translations: [GASTRITIS, ACUTE W/O HEMORRHAGE] Resolved: 5 03-29-2015 Episodic Genitourinary symptoms and ill-defined conditions (20 sources) Dysuria; Translations: [Abnormal urine] Resolved: 2 03-04-2018 Episodic Comment on above: every 2 hours at [facility] ht. not drink after 7 pm no caffiene. urine okay. not have uterus. use thin pad. during day not as much. urogyn. ? estrogen cream. but fmx of breast cancer. use cocnut oil. Dr stapleton urology. talk to her about OT so not want to do able to handle no other estrogen def signs and symptoms thin UTI relate to i ntercourse at times every 2 hours at [facility] ht. not drink after 7 pm no caffiene. urine okay. not have uterus. use thin pad. during day not as much. urogyn. ? estrogen cream. but fmx of breast cancer. use cocnut oil. Dr stapleton urology. talk to her about OT so not want to do able to handle no other estrogen def signs and symptoms. she is fine during day. she is able to tolerate Gout and other crystal arthropathies (20 sources) Calcium pyrophosphate deposition disease; Translations: [Pseudogout of right knee] Resolved: 9 03-04-2018 Chronic Comment on above: see chicorelli. [facility]. had injection bheck labs. she is getting better. Headache; including migraine (10 sources) Disorder of scalp; Translations: [Scalp pain] 03-04-2023 Episodic Immunizations and screening for infectious disease (20 sources) Need for prophylactic vaccination and inoculation against influenza; Translations: [Encounter for screening for respiratory tuberculosis] Resolved: 9 03-29-2015 Episodic Inflammation, infection of eye (20 sources) Dermatitis of eyelid; Translations: [Dermatitis of eyelids of both eyes] Resolved: 8 03-04-2018 Episodic Comment on above: use cortisone -10 sp aringly - nothing on eyes Influenza (20 sources) Influenza Menopausal disorders (20 sources) Menopausal syndrome; Translations: [Menopausal state] Resolved: 9 03-04-2018 Chronic Neoplasms of unspecified nature or uncertain behavior (20 sources) Neoplasm of uncertain behavior of skin; Translations: [Neoplasm of uncertain behavior of skin] 06-28-2020 Episodic Nutritional deficiencies (20 sources) Vitamin D deficiency; Translations: [Vitamin D deficiency] 07-14-2019 Chronic Osteoarthritis (20 sources) Degenerative joint disease involving multiple joints; Translations: [Osteoarthritis] Onset: 6 03-02-2016 Chronic Comment on above: thumb, lower back PT and exercise reallyhelp, sciatica gone. osteobiflex. use tylenol thumb, lower back PT and exercise reallyhelp, sciatica gone. osteobiflex tried and ? help. use tylenol Osteoporosis (20 sources) Osteoporosis; Translations: [Osteoporosis] 08-11-2021 Chronic Other and unspecified benign neoplasm (3 sources) Benign neoplasm of meninges, unspecified; Translations: [Benign neoplasm of meninges, unspecified] Onset: 5 Chronic Other and unspecified benign neoplasm (11 sources) Intracranial meningioma; Translations: [Benign neoplasm of cerebral meninges] Onset: 5 10-09-2024 Chronic Other and unspecified benign neoplasm (2 sources) Benign neoplasm of meninges; Translations: [Benign neoplasm of meninges, unspecified] 10-09-2024 Chronic Other and unspecified benign neoplasm (2 sources) Benign neoplasm of cerebral meninges; Translations: [Intracranial meningioma (HCC)] Onset: 5 Chronic Other and unspecified benign neoplasm (20 sources) Benign neoplasm of skin; Translations: [Benign neoplasm of skin] Resolved: 7 07-06-2017 Episodic Comment on above: left cheek look like was AK used effudex long time told stop and use vaseline to let heal and fall off. recheck in 2-3 weeks. area on right cheek will finish using effudex for anoth weekt hen stop Other bone disease and musculoskeletal deformities (20 sources) Osteopenia; Translations: [Osteopenia] Onset: 6 03-02-2016 Episodic Comment on above: bbd doing 1-17 4-19 mild-moderate o steopenia and not worsen much in 9 years! will do weight bearing exercises and caluim-vit D Other bone disease and musculoskeletal deformities (20 sources) Foot pain; Translations: [Pain in metatarsus of left foot] 05-04-2022 Episodic Other connective tissue disease (20 sources) Myalgia; Translations: [Muscle pain] Resolved: 5 03-29-2015 Episodic Comment on above: still ropy on L side Other connective tissue disease (20 sources) Achilles tendinitis; Translations: [Achilles tendonitis] Resolved: 0 01-30-2020 Episodic Other connective tissue disease (20 sources) Bilateral bursitis of hips; Translations: [Bilateral hip bursitis] Resolved: 2 08-11-2021 Episodic Other connective tissue disease (20 sources) Pain in both feet; Translations: [Pain in both feet] 08-11-2021 Episodic Other connective tissue disease (20 sources) Trochanteric bursitis; Translations: [Trochanteric bursitis, right hip] 01-07-2022 Episodic Other connective tissue disease (1 source) Trochanteric bursitis of right hip; Translations: [Trochanteric bursitis, right hip] 01-07-2022 Episodic Other diseases of kidney and ureters (20 sources) Renal insufficiency; Translations: [Renal insufficiency, mild] 01-17-2021 Episodic Other ear and sense organ disorders (4 sources) Hearing loss of right ear; Translations: [Hearing loss of right ear due to cerumen impaction] 07-05-2023 Episodic Other gastrointestinal disorders (20 sources) Heartburn; Translations: [Heartburn] Resolved: 9 03-04-2018 Episodic Comment on above: on zantac at night h elp not as good as PPI but kidney bettr she is doing much be tter until cut portions in meals in half. not needed second dose or tums in evening Other gastrointestinal disorders (20 sources) Chronic constipation; Translations: [Constipation, chronic] 08-01-2018 Episodic Comment on above: not have complete BM and willhave nabil. increae citracil bid. usese juices. do miralax once add folate acid and vitamin b complex. use juices not need miralax regularly on oncea day calium Other gastrointestinal disorders (20 sources) Finding of pelvis; Translations: [Pelvic fullness] Resolved: 2 08-11-2021 Episodic Other lower respiratory disease (20 sources) Dyspnea on exertion; Translations: [VALERIO (dyspnea on exertion)] Resolved: 0 01-30-2020 Episodic Comment on above: with chest pressure with strong exertion. cath negative. ? small vessel cardio increased norvasc see if helps. Other lower respiratory disease (13 sources) Dyspnea; Translations: [Dyspnea, unspecified] 01-09-2020 Episodic Other non-traumatic joint disorders (20 sources) Pain in left ankle and joints of left foot; Translations: [Acute ankle pain] Resolved: 9 01-26-2017 Episodic Comment on above: 07-21 ankle xray. pu lled ligaments and broke bone. was mobilized and saw Dr. ribeiro. now doing okiay watch uneven ground right now area on me dial nakle nodule swelling and tender above medial malleolus. ? SVT ? in tendon will do us Other non-traumatic joint disorders (20 sources) Pain in left knee; Translations: [Anterior knee pain] 03-04-2018 Episodic Comment on above: now left knee now an d think CPPD Other non-traumatic joint disorders (20 sources) Joint pain; Translations: [Arthralgia] Resolved: 9 03-04-2018 Episodic Comment on above: some Oa in thumbs. u se osteobiflex. Other non-traumatic joint disorders (20 sources) Pain in joint, shoulder region; Translations: [Shoulder joint pain, unspecified laterality] Resolved: 9 03-04-2018 Episodic Comment on above: lef tshoulder ? rota tor cuff. will get xray. will do PT./ nsaids lef tshoulder ? rota tor cuff. xray stable PT help alot will continue as outpatient Other non-traumatic joint disorders (20 sources) Pain in right wrist; Translations: [Pain of right wrist] Resolved: 8 03-04-2018 Episodic Other non-traumatic joint disorders (20 sources) Pain in unspecified knee; Translations: [Knee pain] Resolved: 8 01-18-2018 Episodic Other non-traumatic joint disorders (20 sources) Pain in right hip joint; Translations: [Right hip pain] 02-14-2021 Episodic Other nutritional; endocrine; and metabolic disorders (20 sources) Hemochromatosis; Translations: [Hemochromatosis] Chronic Other nutritional; endocrine; and metabolic disorders (20 sources) Homocystinemia; 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] 02-02-2019 Chronic Other nutritional; endocrine; and metabolic disorders (20 sources) Body mass index 25-29 - overweight; Translations: [BMI 25.0-25.9,adult] Resolved: 1 08-01-2018 Episodic Other nutritional; endocrine; and metabolic disorders (20 sources) Overweight in adulthood with body mass index of 25 or more but less than 30; Translations: [BMI 25.0-25.9,adult] Resolved: 1 08-01-2018 Episodic Other skin disorders (20 sources) Skin lesion; Translations: [Skin lesion] Resolved: 8 03-04-2018 Episodic Comment on above: left neck could be a SK but deeper pigment, new over last year, irritated. color look under microscope looks funny Other skin disorders (20 sources) Skin tag; Translations: [Inflamed skin tag] Resolved: 5 07-24-2015 Episodic Other skin disorders (20 sources) Actinic keratosis; Translations: [Multiple actinic keratoses] Resolved: 9 03-04-2018 Episodic Other upper respiratory disease (20 sources) Allergic rhinitis; Translations: [Allergic rhinitis] Resolved: 9 01-10-2015 Chronic Other upper respiratory disease (20 sources) Congestion of nasal sinus; Translations: [Sinus congestion] Resolved: 5 01-10-2015 Episodic Other upper respiratory infections (20 sources) Upper respiratory infection; Translations: [URI (upper respiratory infection)] 10-16-2021 Episodic Parkinson`s disease (5 sources) Parkinson`s disease; Translations: [Parkinson's disease without dyskinesia, without mention of fluctuations] Onset: 5 Peripheral and visceral atherosclerosis (20 sources) Atherosclerosis of left carotid artery; Translations: [Atherosclerosis of left carotid artery] 03-04-2018 Chronic Comment on above: 06-23-16 Mild on car otid doppler 10-18-16 Mild on car otid doppler 4-19 <50% Regional enteritis and ulcerative colitis (1 source) Colitis; Translations: [Left sided colitis without complications] 12-01-2024 Chronic Residual codes; unclassified (20 sources) Family history of malignant neoplasm of breast; Translations: [Family history of breast cancer] 08-01-2018 Episodic Comment on above: very strong and ovar parminder. talk about genetic counseling. dtr was tested and negative. she would not hav ethe surgery so willhave 3D mammo and us ovaries Residual codes; unclassified (20 sources) Body mass index (BMI) 24.0-24.9, adult; Translations: [Body mass index 20-24 - normal] Resolved: 2 08-01-2018 Episodic Residual codes; unclassified (20 sources) Needs influenza immunization; Translations: [Need for prophylactic vaccination and inoculation against influenza] Resolved: 9 08-01-2018 Episodic Residual codes; unclassified (20 sources) Current non-smoker ; Translations: [Current nonsmoker (Renamed from Current non-smoker)] 01-17-2021 Episodic Residual codes; unclassified (20 sources) Bilateral lower limb edema; Translations: [Bilateral leg edema] 08-11-2021 Episodic Residual codes; unclassified (20 sources) Non-smoker; Translations: [Current nonsmoker (Renamed from Current non-smoker)] 12-30-2022 Episodic Skull and face fractures (2 sources) Fracture of nasal bones, initial encounter for closed fracture; Translations: [Fracture of nasal bones, initial encounter for closed fracture] Onset: 5 Episodic Spondylosis; intervertebral disc disorders; other back problems (20 sources) Degeneration of lumbosacral intervertebral disc; Translations: [Other intervertebral disc degeneration of lumbosacral region] 03-04-2018 Chronic Comment on above: somepain sleep okay no sciatica right now. stable Spondylosis; intervertebral disc disorders; other back problems (20 sources) Backache; Translations: [Lumbago with sciatica] Onset: 6 Resolved: 9 03-02-2016 Episodic Comment on above: had chronicn on and off back pain check xray. neruotin and medrol dose randi to PT better atthis point not want MRI yet. pain not down leg anymore. bother her over post erior iliac left spine. did PT and help have to be careful because can come back. Unclassified (7 sources) Parkinson's disease; Translations: [Parkinson's disease] 04-03-2025 Chronic Comment on above: Patient making good progress with small dose of Sinemet. She is tolerating the medication. Unclassified (20 sources) FH: Hypertension; Translations: [Needs influenza immunization] Resolved: 7 01-16-2016 Episodic Comment on above: very strong and ovar parminder. talk about genetic counseling. dtr was tested and negative. she would not hav ethe surgery so willhave 3D mammo and us ovaries Unclassified (15 sources) Placement of stent in coronary artery ; Translations: [Presence of coronary angioplasty implant and graft] Onset: 1 01-16-2016 Unclassified (6 sources) Long-term drug therapy; Translations: [Other mcc (current) drug therapy] Onset: 1 Resolved: 7 12-10-2010 Unclassified (2 sources) Coronary artery bypass graft x 1; Translations: [Presence of aortocoronary bypass graft] Onset: 6 01-20-2017 Unclassified (20 sources) Menopausal state Unclassified (20 sources) Current non-smoker ; Translations: [Current nonsmoker (Renamed from Current non-smoker)] 03-04-2018 Unclassified (20 sources) Other intervertebral disc degeneration of lumbosacral region Unclassified (20 sources) Arthralgia Unclassified (20 sources) Family history of breast cancer Unclassified (20 sources) Elevated ferritin Unclassified (20 sources) WWV V 73.21 Resolved: 5 03-29-2015 Comment on above: refuse immunizations . mammo in fall. scope 2005. didd MMS Unclassified (20 sources) Renal insufficiency, mild; Translations: [Renal insufficiency] 03-04-2018 Comment on above: US good. 24 hour cre at 1.3 crcl 46 better off PPI Unclassified (20 sources) Prediabetes Unclassified (20 sources) Annual Medicare Physical (Renamed from Medicare annual wellness visit, subsequent); Translations: [Patient encounter status] 03-04-2018 Comment on above: 01-18-18 AMP 07-19-17 [facility] Wellness physical: colonoscopy March 2016 (Dr. Patricia)Mammogram 08-22 and BD 09-01-16, PHQ-9=2(minimal), 6CIT= blood vessel screening 2015, last eye exam was summer [address] Matta and inculded glaucoma screening Unclassified (20 sources) Acute loss of vision, left Unclassified (20 sources) Unclassified (20 sources) BMI 25.0-25.9,adult Unclassified (20 sources) Abnormal fasting glucose Unclassified (20 sources) Shoulder joint pain, unspecified laterality Unclassified (20 sources) Lower abdominal tenderness Unclassified (20 sources) Acute ankle pain, left Unclassified (20 sources) BMI 24.0-24.9, adult Unclassified (20 sources) Actinic keratoses Unclassified (20 sources) Encounter for screening mammogram for breast cancer (Renamed from Encounter for screening mammogram for malignant neoplasm of breast) Unclassified (20 sources) Pseudogout of right knee Unclassified (20 sources) Anterior knee pain, left Unclassified (20 sources) Abdominal Pain,General (789.07) Unclassified (20 sources) Constipation, chronic Unclassified (20 sources) Elevated homocysteine Unclassified (14 sources) VALERIO (dyspnea on exertion) Unclassified (20 sources) Elevated high sensitivity C-reactive protein Unclassified (18 sources) Immunity status testing Unclassified (20 sources) Achilles tendonitis Unclassified (5 sources) BMI 23.0-23.9, adult Urinary tract infections (20 sources) Urinary tract infectious disease; Translations: [Acute cystitis] Resolved: 8 03-29-2015 Episodic Comment on above: reveiwed with patien t recent tests proteus bacteria. macrobid resistent. cipro covered and will finish. resolved Urinary tract infections (20 sources) Urinary tract infections Viral infection (20 sources) Other viral warts; Translations: [Verruca vulgaris] Resolved: 2 01-26-2017 Episodic Comment on above: SK with warty featur es bother her will remove on top of scalp both er her so will freeze off Past or Other Problems Problem Classification Problem Date Documented Date Episodic/Chronic Coronary atherosclerosis and other heart disease (20 sources) Coronary angioplasty status; Translations: [Presence of aortocoronary bypass graft] Onset: 12-10-2010 12-10-2010 Episodic External Injury - Fall (20 sources) Fall; Translations: [Fall, initial encounter] Resolved: 08-01-2018 03-04-2018 Comment on above: reggie johnson Noninfectious gastroenteritis (9 sources) Colitis; Translations: [Noninfective gastroenteritis and colitis, unspecified] Onset: 10-04-2024 06-24-2024 Episodic Nonmalignant breast conditions (7 sources) Breast lump; Translations: [Unspecified lump in unspecified breast] Onset: 02-08-2008 03-16-2024 Episodic Other aftercare (16 sources) Other intermission coordinator (current) drug therapy; Translations: [Other intermission coordinator (current) drug therapy] Onset: 12-10-2010 Resolved: 01-20-2017 01-20-2017 Episodic Other circulatory disease (8 sources) Elevated blood-pressure reading without diagnosis of hypertension; Translations: [Elevated blood-pressure reading, without diagnosis of hypertension] Onset: 04-27-2013 04-27-2013 Episodic Other non-traumatic joint disorders (20 sources) Knee pain; Translations: [Knee pain] Resolved: 01-18-2018 01-18-2018 Episodic Comment on above: right knee after jar it. medrol dose pack help alot. will continue to follow told her if not better all way then PT xray and injection. Other non-traumatic joint disorders (18 sources) Pain of right wrist; Translations: [Right wrist pain] Resolved: 08-01-2018 08-01-2018 Other nutritional; endocrine; and metabolic disorders (20 sources) Body mass index 25-29 - overweight; Translations: [BMI 25.0-25.9,adult] Resolved: 11-05-2020 03-04-2018 Chronic Other screening for suspected conditions (not mental disorders or infectious disease) (9 sources) Elevated C-reactive protein; Translations: [Elevated high sensitivity C-reactive protein] 01-30-2020 Comment on above: up to date on cancer screen, no TA signs and symptoms, ? OA no other signs and symptoms of infection. cath good 5-20. add tumeric. sees dentist. Pneumonia (20 sources) Pneumonia Residual codes; unclassified (20 sources) Vaccination required; Translations: [NEED FOR PROPHYLACTIC VACCINATION AND INOCULATION AGAINST OTHER SPECIFIED DISEASE] Resolved: 03-29-2015 03-29-2015 Episodic Residual codes; unclassified (20 sources) Requires vaccination; Translations: [Need for vaccination against Streptococcus pneumoniae] Resolved: 03-29-2015 03-29-2015 Tuberculosis (20 sources) Tuberculosis Unclassified (20 sources) Other specified abnormal findings of blood chemistry; Translations: [Breast neoplasm screening status] Onset: 08-11-2024 Resolved: 05-04-2022 03-04-2018 Episodic Comment on above: ? cause of pseduogou t if so think morenita single mutation but shoudl know for kids. Unclassified (8 sources) Coronary artery bypass graft; Translations: [Presence of coronary angioplasty implant and graft] Onset: 01-01-2014 01-01-2014 Unclassified (20 sources) Leukocytosis, unspecified type Unclassified (20 sources) Right wrist pain Unclassified (20 sources) Unspecified Diagnosis Resolved: 03-29-2015 03-29-2015 Unclassified (20 sources) Fall, initial encounter Unclassified (20 sources) Dermatitis of eyelids of both eyes Unclassified (20 sources) Pregnancies (); Translations: [Pregnancies ()] 03-04-2018 Comment on above: 4 Unclassified (20 sources) Deliveries (Parity); Translations: [Deliveries (Parity)] 03-04-2018 Comment on above: 3 Unclassified (20 sources) Rash, drug Unclassified (20 sources) Cystitis,Acute (595.0) Unclassified (20 sources) Verruca (078.10) Unclassified (20 sources) ARTHRALGIAS 719.40 Unclassified (20 sources) Pain in joint involving shoulder region (719.41) Unclassified (20 sources) GASTRITIS, ACUTE W/O HEMORRHAGE (535.00) Unclassified (20 sources) IRRITATED MOLE, BENIGN NEOPLASM OF SKIN (216.5) Unclassified (20 sources) Skin Tag, Irritated (701.9) Unclassified (20 sources) Abortions/Miscarriage s; Translations: [Abortions/Miscarriag es] 03-04-2018 Comment on above: 1 Unclassified (20 sources) Patient encounter status; Translations: [Annual Medicare Physical (Renamed from Medicare annual wellness visit, subsequent)] Resolved: 06-07-2020 08-01-2018 Comment on above: 01-18-18 AMP 08-01-18 [facility] Wellness physical: colonoscopy March 2016 (Dr. Patricia)Mammogram 08-22 and BD 09-01-16, 6CIT= blood vessel screening 2015, last eye exam was summer [address] Matta and inculded glaucoma screening 02-02-19 AMP 08-01-18 [facility] Wellness physical: colonoscopy March 2016 (Dr. Patricia)Mammogram and BD 12-20-18, 6CIT= blood vessel screening 2015, last eye exam was in the spring [address] Matta and inculded glaucoma screening 02-02-19 AMP 07-31-19 [facility] Wellness physical: colonoscopy March 2016 (Dr. Patricia)Mammogram and BD 12-20-18,MOCA , cognivue 73, blood vessel screening 2015, last eye exam was in the spring [address] Matta and inculded glaucoma screening, all immunizations are up to date Unclassified (20 sources) Renal insufficiency; Translations: [Renal insufficiency, mild] 08-01-2018 Comment on above: US good. 24 hour cre at 1.3 crcl 46 better off PPI Unclassified (18 sources) Protein level - finding; Translations: [Elevated ferritin] 02-02-2019 Comment on above: ? cause of pseduogou t if so think morenita single mutation but shoudl know for kids. Unclassified (20 sources) Body mass index 20-24 - normal; Translations: [BMI 24.0-24.9, adult] Resolved: 09-27-2018 09-27-2018 Unclassified (18 sources) Tuberculosis screening status; Translations: [Screening examination for pulmonary tuberculosis] Resolved: 03-29-2015 03-29-2015 Results Test Name Value Interpretation Reference Range Facility OT General Evaluationon 06-06 OT General Evaluation [facility] Occupational [facility] [facility] [place] [address] / REHABILITATION SERVICES INITIAL EVALUATION MR#: [id number] Acct: [id number] Name: PETER MARIEE Rep #: [id number] : [id number] 89 From: Eileen Landaverde OTR/L, CHT Referring DrSydney: KYA Jiménez Status: REG RCR Insurance: MEDICARE PART A B Eval Date: [employer] Patient's Visit Information Visit Information Visit Information: PETER MARIEE is a 89 year old F, referred to Occupational Therapy by KYA Tate, with a diagnosis of PD. Date of Evaluation: 06/19/25 Occupational Therapist: Eileen Landaverde, SANKET/Ferny, CHT Subjective Subjective: This 89 year old female was seen for OT eval with dx of PD. Pt states within the last 6 month she has noticed a decrease in her FMS more difficulty with left FMS vs right. Pt states she has been had PT for her PD but not her hands. pt states she has noticed improvements with Physical therapy. pt states more difficulty with washing her hair- and fine intricate tasks. pt was involved in the Parkinson's group. ADLs Dressing: Earrings Comments: putting hearing aides in more difficult Bathing: Wash hair Miscellaneous: Unlock front door, Handle money (change), Take things out of wallet, Write and Open doors/Including car door Comments: pt states she is still driving pt states she lives in [facility] pt does her own shopping- Will have grocery delivered pt has a both a tub/shower and walk in shower - has shower chair if she needs on straight cane has rollator will use at [facility] medical alert pt has dtr/ son/ that will help her as needed Strength Shoulder: flex right 13.$# left 15# Elbow: triceps right 17# left 17.6# Biceps 17.9# left 16.4# Learning Engineer: right 50# left 45# Lateral Pinch: right 10# left 8# Tripod Pinch: right 10# left 10# Nine Hole Peg Right: 27.24 seconds Left: 35.05 seconds Quick DASH-Disab of Arm,Shoulder Hand Quick DASH Score: 43.1800 Goals Goal:: pt will report a increase in IND with grooming, oral care and makeup routine by 70% by d/c pt will demo a reduction in 9 hole peg score bby 5 sec. indicating increase in IND with ADLs and IADLs by d.c Goal:: pt will demo undestanding of using adaptive ways to increase pts ind. with ADls and IADLs by d/c Rehabilitation General Assessment: pt demo with a decline in use of bilateral FMS increasing difficulty with ADLS. Pt would benefit from skilled OT services 1-2x week for 4 weeks to assist pt in reaching maximal rehab potential. Pt demo understanding and agree to POC. Rehabilitation Potential: Good Anticipated Interventions Anticipated Interventions: A/AAROM/PROM, Strengthening, Fine Motor Coord/Meir, Neuro Reeducation, Education re assistive Equipment, Education re Diagnosis and Home Program Visit Plan Frequency: 2-3x /Week Duration: 4 Weeks General Plan: energy conservation fatmata. ad. eq. for Increase IND with ADLs Parkinson ed. for ad/ eq. TEXT: Thank you for the opportunity to evaluate your patient. For Medicare and Medicare HMO plans, please review the plan of care and approve it. It will need to be FAXED BACK to us at [phone] for Medicare purposes. Please let me know if there are questions or concerns regarding this plan of care. Physician Signature: Date: 06/20/25 1556 CC: KYA Jiménez; Dr. Joyce Roe MD MK Signed For Medicare only, by signing this I certify the plan of care. __ Physicians Signature Date Normal [facility] Neurology Visit Reporton Neurology Visit Report [facility] [address], [address] [place] [address] OFFICE VISIT Date of Service: 06/11/25 MR#: [id number] Acct: [id number] Name: PETER MARIEE Rep #: [id number] : 1935 Provider: Dr. Curt gamboa MD Age/Sex: 89/F [place] [facility] [place] Status: Signed HPI HPI Chief Complaint: Parkinson's Disease Details: he patient is a 89-year-old right-handed female who presents for a 3 month follow up on Parkinson's disease. At her last appointment Sinemet 10-100mg 1 tablet twice a day was initiated. Patient presents with her mother for evaluation. Patient was started on Sinemet 10 100s 1 p.o. twice daily. There has been some improvement in patient's Parkinson's symptoms. A small dose was initiated to see if the patient would tolerate the medication. She has had no problems with the medication such as dizziness or hallucinations. Patient notes that she is sleeping much better. She has more facial expression at this time. She feels as if she has energy but tends to run down near the end of the effectiveness of the medication. Notes from physical therapy noted. Patient seems to be making improvements with regard to gait. She still has some difficulty with balance and strength. She also complains of difficulty using her hands. She knows that she has the ability to do some manipulations but feels that her hands are weak. The strength may actually be good but she has problems initiating movement with her hands. ROS: Patient has no new complaints or symptoms to report at this time. Exam Const Other: Blood pressure 151/71 pulse 57 respiration 18 temperature 97.9 O2 sat is 95%. BMI is 23.4%. General appearance well-developed well-nourished lady sitting comfortably in chair. Neurologic examination: Mental status: She is awake alert oriented to person place. She also appears to be oriented to day month and year. Language shows normal reception agent expression. Insight and judgment appears intact. Patient denies hallucinations or delusions. Patient is not agitated. CN II-XII: Pupils are equal and round. Extraocular muscles are intact. Facial expression is definitely improved. Patient can smile and raise her eyebrows. Hearing is known to be impaired. She appears to be wearing her hearing aids today and is able to hear with the use of aids. Swallowing and phonation appear to be intact. Tongue movement appears intact as well. Motor examination shows that she has very good strength and grasping with her fingers her hands. She is able to move arms and legs well at this point in time. Cerebellar testing showed that she still remains mildly bradykinetic. She has a bit of a tremor particularly in the thumbs. Cogwheeling appears to be minimal. Reflexes were trace at biceps trace at knees. Sensory exam showed no sensory deficits. Station gait showed that she was able to arise from a chair with a limited delay. Pushoff was needed. She then walked across the room relatively confidently with head up. She had relatively normal turning. Her gait is clearly improved in comparison to last visit. Assessment and Plan Assessment and Plan (1) Parkinson's disease without dyskinesia or fluctuating manifestations: Status: Chronic Comment: Patient making good progress with small dose of Sinemet. She is tolerating the medication. Plan: 1. Increase Sinemet 10 100s to 1 p.o. 4 times daily. 2. Patient to continue physical therapy for strength and balance. 3. Occupational Therapy has been ordered to help patient with hand manipulation and strength. 4. Patient will return to neurology clinic in November for reassessment. 5. Patient will call in should she have any difficulties with dizziness lightheadedness or hallucinations. Orders: Referrals Physical Therapy Referral G20.A1 - Parkinson's disease without dyskinesia, without mention of fluctuations Occupational Therapy Referral G20.A1 - Parkinson's disease without dyskinesia, without mention of fluctuations Medications: Changed From carbidopa-levodopa 10-100 mg (Sinemet) 1 TAB PO BID 60 tabs 4RF Parkinson's MDD 2 tablets G20.A1 - Parkinson's disease without dyskinesia, without mention of fluctuations To carbidopa-levodopa 10-100 mg (Sinemet) 1 TAB PO .QID 360 tabs 4RF Parkinson's MDD 4 tablets G20.A1 - Parkinson's disease without dyskinesia, without mention of fluctuations Intake Vital Signs 04/03/25 13:21 06/11/25 12:58 Height 5 ft 1 in 5 ft 1 in Weight: 125 lb 2 oz 124 lb 4 oz BMI 23.6 23.4 BP 139/63 H 151/71 H Blood Pressure Location Lt brachial Lt brachial Position Sitting Sitting Respiration 15 18 Pulse 54 L 57 L Pulse Source Monitor Palpation Temp 92.1 F L 97.9 F Temp Source Temporal Temporal Pulse Oximetry (%) 94 95 Oxygen Delivery Method room air room air Intake Visit Reasons: (more content not included)... Normal [facility] Re-Evaluation - PT (1)on Re-Evaluation - PT (1) [facility] Physical Therapy [facility] [address] [place] [address]. [address] [place] [address] / REEVALUATION / MEDICARE RECERTIFICATION PHYSICAL THERAPY MR#: [id number] Acct: [id number] Name: PETER MARIEE Rep #: [id number] : 1935 89 From: Marianela Johnson MPT Referring Dr.: KYA Jiménez Status:REG RCR Insurance: MEDICARE PART A B [employer] Re-Evaluation Intro: Oneida Jiménez, KYA, It has been my pleasure to treat PETER MARIEE over the last 9 visits for PD. Please see the progress note below for an update on the physical therapy plan of care! Subjective Subjective: Pt reports that she and her daughter wants her to get a rollator to use when needed but she needs to be able to get it in and out of the car herself. Pt thinks that therapy made her more conscious of her posture and walking with more of a good stride. She thinks that sometimes her balance is better but not all the time. She has the shakes when trying to put her hearing aides in or lipstick. She still has an issue rolling over in bed. Objective Objective/Function: Gait: flexed trunk with increased stride length with verbal cues. At times her swing leg does not pass stance leg. Plan Plan Plan: Add getting in and out of the car activities and some bed scooting and rolling. Continue with increase stride length and upright posture. 2X/ week for 8 weeks for gait training, balance, Trunk rotation and stretching of L spine, posture, dual tasking, bed mobility with HEP Balance/Gait/Functional tests Balance/Special Test Scores Functional Gait Assessment Score: 13 % Disability: 56.6700 Lower Extremity Functional Score: 31 Goals Goals Goal 1:: I HEP Goal Time Frame: 6-8 Weeks Goal 2:: Pt to report a little easier to roll over in bed. Goal Time Frame: 6-8 Weeks Goal 3:: Pt to walk with increase stride and increase heel to toe gait pattern with controlling her speed Goal Time Frame: 6-8 Weeks Goal 4:: Be able to walk with increase stride length with increase heel to toe gait pattern Goal Time Frame: 6-8 Weeks Anticipated Interventions Anticipated Interventions Patient/Client Instruction: Educate patient on: Condition and Plan of Care For the Purpose of:: To improve muscle performance and motor function, To improve ability to perform ADL's, To improve ability of physical actions for home/community/work/leisur e, To improve gait and locomotor functions, To improve endurance, To improve balance and To improve safety with gait Therapeutic Exercise to Include: Strength training, Balance training, Coordination, Postural training, Flexibilty training, Gait and locomotor training, Neuromotor development, Active ROM and Dynamic Lumbar Stabilization For the Purpose of:: To improve muscle performance and motor function, To improve ability to perform ADL's, To increase tolerance to activity/condition/positio n, To improve performance and independence with ADL's, To decrease level of supervision to perform tasks, To improve ability of physical actions for home/community/work/leisur e, To improve gait and locomotor functions, To improve health of tissue, To increase flexibility/ROM, To improve endurance, To improve balance and To improve safety with gait Functional Training to Include: Gait training For the Purpose of:: To improve gait and locomotor functions and To improve safety with gait Manual Therapy Techniques to Include: Passive ROM For the Purpose of:: To increase ROM and To improve gait and locomotor functions Re-Evaluation Ending Re-evaluation ending: Please do not hesitate to contact me at [phone] by phone or if you have questions or concerns regarding this new plan of care! Sincerely, CARMINA Preston 05/09/25 1152 CC: KYA Jiménez; Dr. Joyce Roe MD Signed For Medicare only, by signing this I certify the plan of care. __ Physicians Signature Date Normal [facility] Inital Evaluation (1) - PTon 04-11-2025 Inital Evaluation (1) - PT [facility] Physical Therapy [facility] [place] [address] / REHABILITATION SERVICES INITIAL EVALUATION MR#: [id number] Acct: [id number] Name: PETER MARIEE Rep #: [id number] : 1935 89 From: Marianela GREWAL Referring Dr.: KYA Tate Status: REG RCR Insurance: MEDICARE PART A B [employer] Patient's Visit Information Visit Information Visit Information: PETER MARIEE is a 89 year old F referred to Physical Therapy by KYA Tate with a diagnosis of PD. Date of Evaluation: 04/11/25 Physical Therapist: CARMINA Preston Visit Plan Frequency: 2x /Week Duration: 2 Months Plan: 2X/ week for 8 weeks for gait training, balance, Trunk rotation and stretching of L spine, posture, dual tasking, bed mobility with HEP Subjective Subjective: 2 years ago her walk had changed and she is at [facility] and Dr Roe said to do PT and that PT thought beginning stages of PD. She was told that she does not smile as much anymore. Pt drools now. She has tremors if she holds something. Her L hand is not as strong as it used to be. She struggles to use her L hand to scrub her head in the shower. She has noticed some coordination issues. She drives and lives indep at [facility]. She just started taking PD meds and has not really noticed a difference. She feels weakness in her arms and leg and struggles to turn over in bed. Pt has had head pain on the R side for the last 2 days and has shot her BP up and Dr said it was a migraine. About a month ago she pulled a muscle in her back and had a massage and muscle relaxor and did not really help. Pt is also going to chair yoga. Pain R head pain: Pain Intensity (Out of 10): 1 Pain Intensity Range: 10 Objective Objective: Gait: Walks with decrease stride length, increase veering and tends to speed up and catch self and slow down, decreased heel to toe gait pattern with some scuffing of feet and pt did trip on R foot and therapist did have to grab gait belt with min A. She was aware and did have a good response time. FGA: 13 LE MMT: R hip flex 10.7 and L 11.9 R knee ext 7.5 and L 5.4 R knee flex 5.5 and L 5.7 Stairs: pt is able to go up and down recip with 1 hand rail (she struggles to kick her descending leg out far enough to clear the step she is coming down from with each step) Sit to stand: pt able to stand up on second attempt with no UE Sitting opp arm and leg" able to do X 10 in a row Tight B gastroc Balance/Special Test Scores Functional Gait Assessment Score: 13 % Disability: 56.6700 Lower Extremity Functional Score: 31 Goals Goal 1:: I HEP Goal Time Frame: 6-8 Weeks Goal 2:: Pt to report a little easier to roll over in bed. Goal Time Frame: 6-8 Weeks Goal 3:: Pt to walk with increase stride and increase heel to toe gait pattern with controlling her speed Goal Time Frame: 6-8 Weeks Goal 4:: Be able to walk with increase stride length with increase heel to toe gait pattern Goal Time Frame: 6-8 Weeks Rehabilitation Potential Rehabilitation Potential: Good Anticipated Interventions Patient/Client Instruction: Educate patient on: Condition and Plan of Care For the Purpose of:: To improve muscle performance and motor function, To improve ability to perform ADL's, To improve ability of physical actions for home/community/work/leisur e, To improve gait and locomotor functions, To improve endurance, To improve balance and To improve safety with gait Therapeutic Exercise to Include: Strength training, Balance training, Coordination, Postural training, Flexibilty training, Gait and locomotor training, Neuromotor development, Active ROM and Dynamic Lumbar Stabilization For the Purpose of:: To improve muscle performance and motor function, To improve ability to perform ADL's, To increase tolerance to activity/condition/positio n, To improve performance and independence with ADL's, To decrease level of supervision to perform tasks, To improve ability of physical actions for home/community/work/leisur e, To improve gait and locomotor functions, To improve health of tissue, To increase flexibility/ROM, To improve endurance, To improve balance and To improve safety with gait Functional Training to Include: Gait training For the Purpose of:: To improve gait and locomotor functions and To improve safety with gait Manual Therapy Techniques to Include: Passive ROM For the Purpose of:: To increase ROM and To improve gait and locomotor functions Text: Thank you for the opportunity to evaluate your patient. For Medicare and Medicare HMO plans, please review the plan of care and approve it. It will need to be FAXED BACK to us at [phone] for Medicare purposes. For Medicare only, by signing this I certify the plan of care. Please let me know if there are questions or aron (more content not included)... Normal [facility] Neurology Visit Reporton Neurology Visit Report [facility] [address], [address] [place] [address] OFFICE VISIT Date of Service: 04/03/25 MR#: [id number] Acct: [id number] Name: PETER MARIEE Rep #: [id number] : 1935 Provider: Dr. Curt gamboa MD Age/Sex: 89/F [place] [facility] [place] Status: Signed HPI HPI Chief Complaint: Parkinson's Disease Details: The patient is a 89-year-old right-handed female [facility] was referred 01/04/[address] Joyce Roe with [facility] for cerebral meningioma, akinesia, and parkinsonism. This patient presents with her daughter for evaluation of possible parkinsonism. Patient does not have tremor but has decreased movement. This is manifested by decreased facial expression, decreased movement in the hands left greater than right which is noticeable but relatively subtle and decreased ability to ambulate. She had a fall in September. It seems that although she does not strictly have a shuffling type gait that she has a tendency to not lift her feet and has a tendency to stumble. Patient first noted that she began having decreased motor activity approximately 2 years ago. It has recently progressed. Approximately 2 months ago she noted that she was having smaller and smaller handwriting. She has had a tendency to write "down a hill" all of her life but the micrographia is a new finding. Patient does not have difficulty swallowing. She takes Metamucil and may have mild difficulty with constipation which is sometimes seen in Parkinson's patients. She has noted sometimes seeing an o bject in the periphery of her vision particularly to the right. This does not necessarily mean that she has Parkinson or a hallucinosis but is something to monitor. Patient did have a fall in September as noted above which resulted in a fracture of her nose. She was seen by the surgeon at [facility] For this problem and was noted to have had 2 small meningiomas in the head. No particular course of action noted other than observation by neurosurgery over time. No family history of Parkinson's is noted. No family history of Alzheimer's disease or memory defects noted. Patient does have history of coronary artery disease with stenting and prior surgery. She does have a history of colitis. Dyspnea is listed in her problem list. She is not diabetic. No peripheral neuropathy noted. Review of Systems: General: Patient has some weight loss that has been occurring but this is being managed with dietary supplementation. Patient has decreased water intake. Patient does avoid heat exposure. HEENT: Patient's had bilateral intraocular lens implants. 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 She does have hearing impairment. She does wear hearing aids. No difficulty swallowing. Respiratory: No shortness of breath or hemoptysis according to patient. Cardiac: No chest pain but has had coronary artery disease and has had procedures for management of that problem. She is on aspirin 81 mg p.o. daily. She is receiving treatment for hypertension. Abdomen: History of colitis. Currently avoiding dairy products. Does not vomit blood or passed blood in stool Renal: No kidney failure. No hematuria. Extremities: Polyarticular arthritis. Taking chondroitin. Skin: No active lesions. Neurologic: Denies strokes or seizures. No TIAs. Does note having difficulty initiating movement when she wants to move her hand particularly on the left. Psychiatric: Her September 2024. Patient is experiencing some depression with regard to that. Patient is not on antidepressants at this time and has declined that treatment. Exam Const Other: Blood pressure 139/63 pulse 54 respiration 15 temperature 92.1 O2 sat 94% on room air BMI is 23.6. General appearance that of a well-developed well-nourished female sitting quietly in a chair HEENT: Normocephalic. No Jack sign raccoon's eyes. Had a fracture of the nose but appears to be without obvious finding. Respiratory: Clear to auscultation Cardiac: Regular rhythm no murmur Abdomen: Not distended Extremities: Some joint deformity noted without hot swollen red joints on observed areas. Skin: Appears intact with some evidence of solar keratoses. Neurologic examination: Mental status: Patient is awake alert oriented x 3. Memory testing was 3 for 3 on repeated questioning. Insight and judgment appears to be good. Patient asked appropriate questions. No delusions or hallucinations noted at the moment aside from that one episode she made comment about seeing something out of the corner of her eye. Patient does have an element of depression associated with the of her . CN II-XII: Pupils are equal round approximately 4 mm in size. It was difficult to tell if they were reactive. Visual drew show that (more content not included)... Normal [facility] Cardiology Visit Reporton Cardiology Visit Report [facility] [address] [place] [address] OFFICE VISIT Date of Service: 03/29/25 MR#: [id number] Acct: [id number] Name: PETER MARIEE Rep #: [id number] : 1935 Provider: Dr. Saúl Barney MD Age/Sex: 89/F [place] [facility] [place] Status: Signed HPI HPI History of Present Illness Details: PETER MARIEE, is a 89 F who presents for a follow-up visit. She is a lady with a history of coronary artery disease status post coronary artery bypass surgery. She was seen by us in January 2020 when she was complaining of chest discomfort and underwent a cardiac catheterization which demonstrated a patent JOHN to the LAD, mild disease was noted in the right coronary artery and circumflex artery. The mid LAD was occluded the ejection fraction was normal. She had her medications adjusted and has done well since. Her major problem at this time is that she has had some pedal edema and she tells me that you reduce the dose of the amlodipine. She denies chest, arm, jaw, or neck discomfort. She denies palpitations. She denies bilateral lower extremity edema. She denies claudication. She denies shortness of breath with activity, sh ortness of breath at rest, orthopnea, or PND. She denies chronic cough. She denies significant, sudden weight gain. She denies lightheadedness, dizziness, near-syncope, or syncope. She denies blood in urine, blood in stool, or epistaxis. He denies fever with chills. She denies myalgia. She denies fatigue. Her exercise level has remained stable. Intake Vital Signs 02/11/24 10:25 09/29/24 13:11 03/29/25 14:04 Height 5 ft 1 in 5 ft 1 in 5 ft 1 in Weight: 125 lb BMI 23.6 BP 123/58 H Blood Pressure Location Lt brachial Position Sitting Respiration 16 Pulse 57 L Pulse Source Monitor Intake Visit Reasons: 1 Y FU Script Worker Required: No Accompanied by: Daughter Is patient in pain?: No Allergies No Known Allergies Allergy (Verified 03/29/25 14:07) Medications ???Medication ???Instructions ???Recorded ???Confirmed ???Type aspirin 81 mg tablet,delayed 81 mg PO QDAY 01/24/18 03/29/25 Hi story release folic acid 800 mcg tablet 0.8 mg PO DAILY 01/09/20 03/29/25 History glucosamine-chondroitin 250 mg-200 1 tab PO DAILY 01/09/20 03/29/25 History mg tablet (Osteo Bi-Flex) omeprazole 20 mg capsule,delayed 20 mg PO DAILY 01/09/20 03/29/25 H istory release rosuvastatin 20 mg tablet 20 mg PO QHS 02/26/23 03/29/25 His tory cholecalciferol (vitamin D3) 25 25 mcg PO DAILY 02/11/24 03/29/25 History mcg (1,000 unit) tablet ibandronate 150 mg tablet 150 mg PO QMONTH 02/11/24 03/29/25 History calcium carbonate 1,000 mg PO DAILY 06/24/24 5 History vitamin B comp and C no.3 15 mg-10 1 cap PO DAILY 06/24/24 03/29/25 History mg-50 mg-5 mg-300 mg capsule (B Complex Plus Vitamin C) acetaminophen 500 mg tablet 500 mg PO BID PRN 03/29/25 5 History (Tylenol Extra Strength) atenolol 25 mg tablet 25 mg PO QDAY #90 tabs 03/29/25 Rx furosemide 20 mg tablet 20 mg PO QDAY 03/29/25 03/29/25 Hi story losartan 50 mg tablet 50 mg PO QDAY #90 tabs 03/29/25 Rx magnesium oxide 200 mg PO BID 03/29/25 03/29/25 Hi story Have you fallen in the past year?: Yes PFSH Medical History Wears hearing aid Loss of hearing Wears glasses Cardiology follow-up encounter Myocardial infarct Hypertension Greater trochanteric bursitis of right hip Trochanteric bursitis of right hip Essential (primary) hypertension GERD (gastroesophageal reflux disease) Osteopenia Gallstones Back problem Generalized osteoarthrosis 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 HLD (hyperlipidemia) Surgical History History of coronary artery stent placement History of left heart catheterization (01/22/20) History of coronary angioplasty (08/1999) 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) H/O left breast biopsy History of ovarian cystectomy History of appendectomy Hx of cholecystectomy H/O: hysterectomy Family History Mother Cancer Ovarian cancer Heart disease Breast cancer Hypertension Valvular heart disease Father Cancer throat cancer Asthma Sister Breast cancer Daughter Cancer Social History Smoking Status: Never smoker alcohol intake: current alcohol intake frequency: holidays/special occasions only Alcohol type: wine substance use type: does not use caffeine: No ROS Const Const: Positive for fatigue and weakness (more content not included)... Normal [facility] 03-23-2025 OV Office Visit (NEAGCL M) -- PETER MARIEE ([id number]) 1935 F Date Time Provider Department 03/23/25 10:00 AM JERZY GLASS During your visit today, we recorded the following information about you: Pulse Respiration Blood pressure Weight 56/minute 16/minute 138/63 56.1 kg Height 1.549 m Jerzy Glass MD 03/23/2025 10:16 AM Signed NEUROSURGERY FOLLOW UP OFFICE NOTE Dr. Jerzy Glass MD, FACS Date of visit: March 23, 2025 Patient Name: Ms.Georgia Мария Mariee Date of : 1935 Current Age: [age] year old Sex: female MRN/E# [id number] Last Office Visit: 10/17/2024 CHIEF COMPLAINT: Patient presents with: Established Patient SUBJECTIVE: The patient presents as a follow-up with imaging (MRI B) for evaluation. This is an 89-year-old female with no significant PMHx who was referred by Dr. Joyce Roe for neurosurgical evaluation. She was seen with her daughter for consult on 10/10/[address] B. She reported that she had a GLF on 09/30/24 and was taken to an outside ED. The fall caused her to strike her face. Workup was completed and showed an incidental finding of a meningioma arising from the junction of the left tentorium and petrous temporal bone. She was doing well since discharge with persistent difficulty with gait and balance however this was chronic over the last few years. She also reported difficulty with handwriting stating that her penmanship was very small. Neurologically she was intact with the exception of mild gait disturbance. CT was reviewed and showed a suspected meningioma arising from the junction of the left tentorium and petrous temporal bone. Treatment options were discussed with the patient and her daughter. Recommendation was to obtain a MRI brain to further define this lesion and to determine a treatment plan. They were advised that if indeed this turns out to be a meningioma surgical excision is not recommended. She was last seen in the office on 10/17/2024 and reported that she was overall doing well. She denied any new or concerning issues since her previous visit. Neurologically she was intact on exam without focal deficit. MRI was reviewed and showed to extra axial dural based masses as noted on the CT suspected to be meningiomas. Given she was asymptomatic and this was the first time the masses were discovered on MRI recommendation was for a short-term follow-up in about 4 to 5 months with a repeat MRI to evaluate any changes or growth. Today she states she is overall doing well. She reports that she will be seeing a Neurologist for possible diagnosis of Parkinson's. She is having a tremors, gait difficulty and trouble with her handwriting. She denies headache, visual changes, speech deficits, seizure activity, or sensory deficits. She presents for image review, evaluation and plan of care. MEDICATIONS: Keppra: No Dexamethasone: No SYMPTOMS: None PREVIOUS CONSERVATIVE TREATMENTS: None SURGICAL RISK: Smoker: Never Diabetic: No Anticoagulants / Antiplatelets: ASA 81 mg Occupation: Retired PREVIOUS NEUROSURGERY: None PAIN EVALUATION No data found in the last 1 encounters. PAST MEDICAL HISTORY Diagnosis Date Acute myocardial infarction of other specified sites, episode of care unspecified 09/06/1998 Myocardial Infarction Coronary atherosclerosis of unspecified type of vessel, [place] or graft Coronary artery disease Hypertension Mixed hyperlipidemia Osteoporosis PAST SURGICAL HISTORY Procedure Laterality Date COLONOSCOPY FLX DX W/COLLJ SPEC WHEN PFRMD 01/20/16 Colonoscopy EXC CYST/ABERRANT BREAST TISSUE OPEN / LESION 05/02/2008 Left Berast LAPAROSCOPY SURG CHOLECYSTECTOMY Cholecystectomy, lap PAST SURGICAL HISTORY OF 2013 heart bypass TOTAL ABDOMINAL HYSTERECT W/WO RMVL TUBE OVARY Hysterectomy, JYOTI - ovaries still present TRANSCATH STENT INIT VESSEL,PERCUT 1998 Transcath stent init vessel percut FAMILY HISTORY Problem Relation Age of Onset Breast Cancer Mother Cancer Mother ovarian Cancer Father throat Breast Cancer Sister Breast Cancer Daughter ALLERGIES No Known Allergies Current Outpatient Medications Medication Sig Dispense Refill Magnesium 250 mg tab KLOR-CON M20 20 mEq tablet FOLIC ACID ORAL Take by mouth once daily. hydroCHLOROthiazide 25 mg tablet 25 mg. Every 3 days Ibandronate 150 mg tablet once every month. omeprazole (PRILOSEC) 20 mg capsule Take 1 capsule by mouth every afternoon. amLODIPine (NORVASC) 5 mg tablet Take 1 tablet by mouth every afternoon. rosuvastatin (CRESTOR) 20 mg tablet Take 1 tablet by mouth every afternoon. GLUC/LÓPEZ-MSM#1/C/KRISTIE/REAGAN /BOR (OSTEO BI-FLEX TRIPLE STRENGTH ORAL) Take 2 tablets by mouth once daily. ATENOLOL 25 MG TAB Take one(1) tablet daily. 0 ASPIRIN 81 MG CHEWABLE TAB Take one(1) tablet daily. 0 calcium carbonate/vitamin (more content not included)... Normal [facility] Echocardiogram study reportO rdered By: Saúl Barney on 03-18-2025 Study report [facility] [place] [address] Echo Complete 03/15/25 1352 MR#: [id number] Acct: [id number] Name: PETER MARIEE Rep #:[id number] : 1935 89 From: Saúl Johnson Attending Dr: Dr. Joyce Roe MD Status: REG CLI Ordering Dr: Joyce Roe MD Date: Location: [facility] Sex: F C Admitted: Reason For Study Reason For Study: ASHD Procedure This was a 2D Doppler, Color Flow transthoracic echocardiogram. Exam performed in department. Left Ventricle Normal LV size. The left ventricular ejection fraction is 65 %. Stage 1 diastolic dysfunction. No regional wall motion abnormalities noted. Right Ventricle Normal RV size. Normal systolic function. Mitral Valve Mild focal mitral valve calcification, bileaflet. Mild (1+) eccentric mitral valve insufficiency. Tricuspid Valve Normal tricuspid valve. Mild tricuspid valve insufficiency. Pulmonary artery systolic pressure is 25 mmHg. Aortic Valve Trisinus/trileaflet aortic valve. Pulmonic Valve Normal pulmonic valve. Mild (1+) pulmonic valve insufficiency. Great Vessels Normal aortic root. The pulmonary artery is normal size. Inferior vena cava collapse with sniff. Pericardium/Pleural No pericardial effusion. MMode/2D Measurements & Calculations LVIDd: 4.5 cm IVSd: 0.94 cm Ao root diam: 3.2 cm LVIDs: 2.7 cm LVPWd: 1.4 cm FS: 40.2 % __ LAV(MOD-bp): 39.6 ml RVOT diam: 2.0 cm LVAd ap4: 17.7 cm2 LAV(MOD-bp) Indexed: 25.9 ml/m2 LVLd ap4: 5.7 cm LAV(MOD-sp2): 34.7 ml EDV(MOD-sp4): 44.7 ml LAV(MOD-sp4): 41.0 ml EDV(sp4-el): 46.3 ml LVAs ap4: 9.4 cm2 LVLs ap4: 4.6 cm ESV(MOD-sp4): 15.6 ml ESV(sp4-el): 16.2 ml EF(MOD-sp4): 65.1 % EF(sp4-el): 65.0 % __ SV(MOD-sp4): 29.1 ml SV(sp4-el): 30.1 ml LA A4 area: 15.7 cm2 SI(MOD-sp4): 19.0 ml/m2 LA dimension(2D): 4.0 cm RA A4 area: 14.5 cm2 Time Measurements MV dec time: 0.22 sec Doppler Measurements & Calculations MV E max kody: 93.0 cm/sec Lat Peak E' Kody: 7.1 cm/sec Med Peak E' Kody: 5.7 cm/sec MV A max kody: 101.2 cm/sec E/E' lat: 13.1 E/E' med: 16.3 MV E/A: 0.92 __ MV V2 max: 112.6 cm/sec Ao V2 max: 151.9 cm/sec MV max P.1 mmHg MV dec slope: 440.3 cm/sec2 Ao max P.2 mmHg MV V2 mean: 69.1 cm/sec Ao V2 mean: 105.2 cm/sec MV mean P.1 mmHg Ao mean P.0 mmHg MV V2 VTI: 40.1 cm Ao V2 VTI: 36.8 cm AV (velocity ratio): 0.76 LV V1 max: 120.9 cm/sec PA V2 max: 88.4 cm/sec SV(RVOT): 57.7 ml LV V1 max P.8 mmHg PA V2 mean: 60.2 cm/sec LV V1 mean P.9 mmHg PA mean PG (full): 0.60 mmHg LV V1 mean: 78.0 cm/sec LV V1 VTI: 28.0 cm TR max kody: 235.9 cm/sec TR max P.3 mmHg ECHO/Echo Complete Interpretation Summary The left ventricular ejection fraction is 65 %. Stage 1 diastolic dysfunction. Normal LV size. Pulmonary artery systolic pressure is 25 mmHg. Ordering Physician: Joyce Roe Referring Physician: Joyce Roe Performed By: Batsheva Thomas RCS 03/18/25 1545 Date _ Saúl Barney MD CC: Dr. Joyce Roe MD ~ Date Dictated: 03/15/25 1358 Date Transcribed: 03/18/251544 Reheater: Signed [facility] Work Phone: MR Brain WO and W contrast I [facility] 03-16-2025 IMPRESSION: Presumed meningiomas along the right frontal convexity and left anterior cerebellar convexity, as described, which appear grossly unchanged in appearance since prior exam from 10/10/2024 [facility] Transcribe Date/Time: Mar 16 2025 11:36A Dictated by : FELIPE STAPLETON MD This examination was interpreted and the report reviewed and electronically signed by: FELIPE STAPLETON MD on Mar 16 2025 11:50AM [facility] DIVISION OF RADIOLOGY * * *Final Report* * * DATE OF EXAM: Mar 16 2025 10:30AM [facility] 0295 - MRI BRAIN WO/W IVCON / PROCEDURE REASON: Intracranial meningioma (HCC) * * * * Physician Interpretation * * * * EXAMINATION: MRI BRAIN WO/W IVCON HISTORY: Intracranial meningioma (HCC) - - - Primary neoplasm/metastasis/postop F/U - Brain/RECORDS OFFICER neoplasm, monitor - [id number] - - F/U MENINGIOMA - - TECHNIQUE: MRI brain routine protocol without and with contrast. M: [id number] MR Contrast: Dotarem Contrast Dose: 10 cc Route of Administration: IV COMPARISON: MRI brain 10/10/2024. RESULT: Acute Change: No evidence of an acute intracranial process. Hemorrhage: No evidence of prior parenchymal hemorrhage on the susceptibility weighted sequences. Mass Lesion/ Mass Effect: Again demonstrated are homogeneously enhancing dural based extra-axial masses including: A right paramedian frontal convexity mass with intrinsic susceptibility measuring 1.6 x 0.7 x 0.7 cm (series 13, image 56). Mild localized mass effect on the adjacent parenchyma. No evidence of significant parenchymal edema. A left anterior cerebellar convexity mass extending along the dura adjacent to the sigmoid sinus and contacting the left inferior tentorial leaflet measuring 1.4 x 1.9 x 1.9 cm encroaching the left cerebellar hemisphere with minimal if any localized mass effect anterolateral aspect of the cerebellum. No evidence of dural venous invasion. Chronic Change: The white matter is within normal limits of signal intensity for age. Parenchyma: There is mild generalized parenchymal volume loss. Ventricles: Normal caliber and morphology. Skull Base: Hypothalamic and pituitary region are grossly normal. Craniocervical junction is normal. No significant marrow replacement process. Vasculature: Major intracranial arteries and dural venous sinuses demonstrate typical flow voids, suggesting patency by spin echo criteria. Other: Minimal diffuse paranasal sinus mucosal thickening. Moderate polypoid mucosal thickening in the left maxillary sinus. Mastoid air cells and middle ear cavities are clear. The orbits and extracranial soft tissues are unremarkable. Bilateral intraocular lens replacement. DIVISION OF RADIOLOGY Provider, [facility] - 03/16/2025 * * *Final Report* * * DATE OF EXAM: Mar 16 2025 10:30AM [facility] 0295 - MRI BRAIN WO/W IVCON / PROCEDURE REASON: Intracranial meningioma (HCC) * * * * Physician Interpretation * * * * EXAMINATION: MRI BRAIN WO/W IVCON HISTORY: Intracranial meningioma (HCC) - - - Primary neoplasm/metastasis/postop F/U - Brain/RECORDS OFFICER neoplasm, monitor - [id number] - - F/U MENINGIOMA - - TECHNIQUE: MRI brain routine protocol without and with contrast. M: [id number] MR Contrast: Dotarem Contrast Dose: 10 cc Route of Administration: IV COMPARISON: MRI brain 10/10/2024. RESULT: Acute Change: No evidence of an acute intracranial process. Hemorrhage: No evidence of prior parenchymal hemorrhage on the susceptibility weighted sequences. Mass Lesion/ Mass Effect: Again demonstrated are homogeneously enhancing dural based extra-axial masses including: A right paramedian frontal convexity mass with intrinsic susceptibility measuring 1.6 x 0.7 x 0.7 cm (series 13, image 56). Mild localized mass effect on the adjacent parenchyma. No evidence of significant parenchymal edema. A left anterior cerebellar convexity mass extending along the dura adjacent to the sigmoid sinus and contacting the left inferior tentorial leaflet measuring 1.4 x 1.9 x 1.9 cm encroaching the left cerebellar hemisphere with minimal if any localized mass effect anterolateral aspect of the cerebellum. No evidence of dural venous invasion. Chronic Change: The white matter is within normal limits of signal intensity for age. Parenchyma: There is mild generalized parenchymal volume loss. Ventricles: Normal caliber and morphology. Skull Base: Hypothalamic and pituitary region are grossly normal. Craniocervical junction is normal. No significant marrow replacement process. Vasculature: Major intracranial arteries and dural venous sinuses demonstrate typical flow voids, suggesting patency by spin echo criteria. Other: Minimal diffuse paranasal sinus mucosal thickening. Moderate polypoid mucosal thickening in the left maxillary sinus. Mastoid air cells and middle ear cavities are clear. The orbits and extracranial soft tissues are unremarkable. Bilateral intraocular lens replacement. IMPRESSION IMPRESSION: Presumed meningiomas along the right frontal convexity and left anterior cerebellar convexity, as described, which appear grossly unchanged in appearance since prior exam from 10/10/2024 Reheater: [facility] Transcribe Date/Time: Mar 16 2025 11:36A Dictated by : FELIPE STAPLETON MD This examination was interpreted and the report reviewed and electronically signed by: FELIPE STAPLETON MD on Mar 16 2025 11:50AM EST [facility] Radiology Study observation (narrative) [facility] MR Brain WO and W contrast I VOrdered By: [facility] Provider on 03-16-2025 [facility] MRI BRAIN WO/W IVCONon 03-16 MRI BRAIN WO/W IVCON * * *Final Report* * * DATE OF EXAM: Mar 16 2025 10:30AM [facility] 0295 - MRI BRAIN WO/W IVCON / PROCEDURE REASON: Intracranial meningioma (HCC) * * * * Physician Interpretation * * * * EXAMINATION: MRI BRAIN WO/W IVCON HISTORY: Intracranial meningioma (HCC) - - - Primary neoplasm/metastasis/postop F/U - Brain/RECORDS OFFICER neoplasm, monitor - [id number] - - F/U MENINGIOMA - - TECHNIQUE: MRI brain routine protocol without and with contrast. M: [id number] MR Contrast: Dotarem Contrast Dose: 10 cc Route of Administration: IV COMPARISON: MRI brain 10/10/2024. RESULT: Acute Change: No evidence of an acute intracranial process. Hemorrhage: No evidence of prior parenchymal hemorrhage on the susceptibility weighted sequences. Mass Lesion/ Mass Effect: Again demonstrated are homogeneously enhancing dural based extra-axial masses including: A right paramedian frontal convexity mass with intrinsic susceptibility measuring 1.6 x 0.7 x 0.7 cm (series 13, image 56). Mild localized mass effect on the adjacent parenchyma. No evidence of significant parenchymal edema. A left anterior cerebellar convexity mass extending along the dura adjacent to the sigmoid sinus and contacting the left inferior tentorial leaflet measuring 1.4 x 1.9 x 1.9 cm encroaching the left cerebellar hemisphere with minimal if any localized mass effect anterolateral aspect of the cerebellum. No evidence of dural venous invasion. Chronic Change: The white matter is within normal limits of signal intensity for age. Parenchyma: There is mild generalized parenchymal volume loss. Ventricles: Normal caliber and morphology. Skull Base: Hypothalamic and pituitary region are grossly normal. Craniocervical junction is normal. No significant marrow replacement process. Vasculature: Major intracranial arteries and dural venous sinuses demonstrate typical flow voids, suggesting patency by spin echo criteria. Other: Minimal diffuse paranasal sinus mucosal thickening. Moderate polypoid mucosal thickening in the left maxillary sinus. Mastoid air cells and middle ear cavities are clear. The orbits and extracranial soft tissues are unremarkable. Bilateral intraocular lens replacement. IMPRESSION: Presumed meningiomas along the right frontal convexity and left anterior cerebellar convexity, as described, which appear grossly unchanged in appearance since prior exam from 10/10/2024 Reheater: [facility] Transcribe Date/Time: Mar 16 2025 11:36A Dictated by : FELIPE STAPLETON MD This examination was interpreted and the report reviewed and electronically signed by: FELIPE STAPLETON MD on Mar 16 2025 11:50AM EST [id number] Normal [facility] Echo Completeon 03-15-2025 Echo Complete [facility] Cardi[facility] Services [address] [place] [address] Echo Complete 03/15/25 1358 MR#: [id number] Acct: [id number] Name: PETER MARIEE Rep #: [id number] : 1935 89 From: Saúl Barney MD Attending Dr: Dr. Joyce Roe MD Status: REG CLI Ordering Dr: Joyce Roe MD Date: 03/15/25 Location: [facility] Sex: F C Admitted: Reason For Study Reason For Study: ASHD Procedure This was a 2D Doppler, Color Flow transthoracic echocardiogram. Exam performed in department. Left Ventricle Normal LV size. The left ventricular ejection fraction is 65 %. Stage 1 diastolic dysfunction. No regional wall motion abnormalities noted. Right Ventricle Normal RV size. Normal systolic function. Mitral Valve Mild focal mitral valve calcification, bileaflet. Mild (1+) eccentric mitral valve insufficiency. Tricuspid Valve Normal tricuspid valve. Mild tricuspid valve insufficiency. Pulmonary artery systolic pressure is 25 mmHg. Aortic Valve Trisinus/trileaflet aortic valve. Pulmonic Valve Normal pulmonic valve. Mild (1+) pulmonic valve insufficiency. Great Vessels Normal aortic root. The pulmonary artery is normal size. Inferior vena cava collapse with sniff. Pericardium/Pleural No pericardial effusion. MMode/2D Measurements Calculations LVIDd: 4.5 cm IVSd: 0.94 cm Ao root diam: 3.2 cm LVIDs: 2.7 cm LVPWd: 1.4 cm FS: 40.2 % LAV(MOD-bp): 39.6 ml RVOT diam: 2.0 cm LVAd ap4: 17.7 cm2 LAV(MOD-bp) Indexed: 25.9 ml/m2 LVLd ap4: 5.7 cm LAV(MOD-sp2): 34.7 ml EDV(MOD-sp4): 44.7 ml LAV(MOD-sp4): 41.0 ml EDV(sp4-el): 46.3 ml LVAs ap4: 9.4 cm2 LVLs ap4: 4.6 cm ESV(MOD-sp4): 15.6 ml ESV(sp4-el): 16.2 ml EF(MOD-sp4): 65.1 % EF(sp4-el): 65.0 % SV(MOD-sp4): 29.1 ml SV(sp4-el): 30.1 ml LA A4 area: 15.7 cm2 SI(MOD-sp4): 19.0 ml/m2 LA dimension(2D): 4.0 cm RA A4 area: 14.5 cm2 Time Measurements MV dec time: 0.22 sec Doppler Measurements Calculations MV E max kody: 93.0 cm/sec Lat Peak E' Kody: 7.1 cm/sec Med Peak E' Kody: 5.7 cm/sec MV A max kody: 101.2 cm/sec E/E' lat: 13.1 E/E' med: 16.3 MV E/A: 0.92 MV V2 max: 112.6 cm/sec Ao V2 max: 151.9 cm/sec MV max P.1 mmHg MV dec slope: 440.3 cm/sec2 Ao max P.2 mmHg MV V2 mean: 69.1 cm/sec Ao V2 mean: 105.2 cm/sec MV mean P.1 mmHg Ao mean P.0 mmHg MV V2 VTI: 40.1 cm Ao V2 VTI: 36.8 cm AV (velocity ratio): 0.76 LV V1 max: 120.9 cm/sec PA V2 max: 88.4 cm/sec SV(RVOT): 57.7 ml LV V1 max P.8 mmHg PA V2 mean: 60.2 cm/sec LV V1 mean P.9 mmHg PA mean PG (full): 0.60 mmHg LV V1 mean: 78.0 cm/sec LV V1 VTI: 28.0 cm TR max kody: 235.9 cm/sec TR max P.3 mmHg ECHO/Echo Complete Interpretation Summary The left ventricular ejection fraction is 65 %. Stage 1 diastolic dysfunction. Normal LV size. Pulmonary artery systolic pressure is 25 mmHg. Ordering Physician: Joyce Roe Referring Physician: Joyce Roe Performed By: Batsheva Thomas RCS 03/18/25 1545 Date Saúl Barney MD CC: Dr. Joyce Roe MD Date Dictated: 03/15/25 1358 Date Transcribed: 03/18/251544 Reheater: Signed Normal [facility] Breast Limited Unilateralon 01-22-2025 Breast Limited Unilateral [facility] Imaging Services [address] [place] [address] [id number] Breast Limited Unilateral MR#: [id number] Acct: [id number] Name: PETER MARIEE Rep #: [id number] : 1935 F 89 From: Mckenzie De Anda PCP: Dr. Joyce Roe MD Status: REG CLI Study: Breast Limited Unilateral Date of Exam: Exam# [id number] Ordering Dr: Joyce Roe MD PROCEDURE: BREAST LIMITED UNILATERAL 01/22/2025 REASON FOR EXAM: ABN MAMM Asymmetric density inferior aspect right breast. Inconclusive mammogram. Evaluate. TECHNIQUE: Targeted left breast ultrasound. COMPARISON: Mammogram studies dated 01/22/2025, 01/10/2025, and 07/16/2023 FINDINGS: There is a benign-appearing macrocalcification in the right breast at the 6 o'clock, 3 cm from nipple position. The asymmetric density seen on the mammogram study appears to represent a ridge of fibroglandular tissue on the images submitted for review. No suspicious solid or cystic masses are seen in the breast to suggest malignancy. US/Breast Limited Unilateral IMPRESSION: Impression: The asymmetric density seen on the mammogram study appears to represent a probable ridge of fibroglandular tissue on the ultrasound examination. A short-term six-month follow-up mammogram of the right breast however should be performed to document stability. Birads: BI-RADS 3: PROBABLY BENIGN. Reading Location: [facility] CC: Dr. Joyce Roe MD Reheater: Signed Normal [facility] Breast imaging reportOrdered By: Mckenzie Carrera on 01-22-2025 Study report [facility] Imaging Services [address] [place] [address] DIAG MAMM W/CAD, UNILAT MR#: [id number] Acct: [id number] Name: PETER MARIEE Rep #: [id number] : 1935 F 89 From: Rolly Carrera DO PCP: Dr. Joyce Roe MD Status: REG C LI Study:DIAG MAMM W/CAD, UNILAT Date of Exam: 01/22/25 Exam# [id number] Ordering Dr: Joyce Roe MD EXAM: DIAG MAMM W/CAD, UNILAT N/A CLINICAL HISTORY: F, Age 89 y/o , ABN MAMM. Asymmetric density right breast. Evaluate. TECHNIQUE: Bilateral Diagnostic digital breast tomosynthesis with 2D and 3D images. Computer aided detection. COMPARISON: Prior exam(s) dated 01/10/2025, 07/16/2023, and 07/15/2022. FINDINGS: TISSUE DENSITY: The breast tissue is extremely dense which lowers the sensitivity of mammography. Bilateral Breast Mammographic Findings: There is asymmetric density in the inferior aspect of the right breast which does persist on today's study. It does not disperse on the spot compression MLO view. Ultrasound will be performed for further evaluation. Benign-appearing secretory type calcifications, round microcalcifications, and macrocalcifications are seen in the breast. BI/DIAG MAMM W/CAD, UNILAT IMPRESSION: OVERALL FINAL ASSESSMENT: BIRADS 0 Incomplete: Need additional imaging evaluation and/or prior mammograms for comparison.. An ultrasound examination of the right breast asymmetric density will be performed for further evaluation. RECOMMENDATION: Ultrasound. A letter with findings and recommendations will be mailed to the patient. Reading Location: [id number] CC: Dr. Joyce Roe MD ~ Reheater: Signed [facility] DIAG MAMM W/CAD, UNILATon DIAG MAMM W/CAD, UNILAT [facility] Imaging Services [address] [place], [place] [address] DIAG MAMM W/CAD, UNILAT MR#: [id number] Acct: [id number] Name: PETER MARIEE Rep #: [id number] : 1935 F 89 From: Mckenzie De Anda PCP: Dr. Joyce Roe MD Status: REG CLI Study: DIAG MAMM W/CAD, UNILAT Date of Exam: 01/22/25 Exam# [id number] Ordering Dr: Joyce Roe MD EXAM: DIAG MAMM W/CAD, UNILAT N/A CLINICAL HISTORY: F, Age 89 y/o , ABN MAMM. Asymmetric density right breast. Evaluate. TECHNIQUE: Bilateral Diagnostic digital breast tomosynthesis with 2D and 3D images. Computer aided detection. COMPARISON: Prior exam(s) dated 01/10/2025, 07/16/2023, and 07/15/2022. FINDINGS: TISSUE DENSITY: The breast tissue is extremely dense which lowers the sensitivity of mammography. Bilateral Breast Mammographic Findings: There is asymmetric density in the inferior aspect of the right breast which does persist on today's study. It does not disperse on the spot compression MLO view. Ultrasound will be performed for further evaluation. Benign- appearing secretory type calcifications, round microcalcifications, and macrocalcifications are seen in the breast. BI/DIAG MAMM W/CAD, UNILAT IMPRESSION: OVERALL FINAL ASSESSMENT: BIRADS 0 Incomplete: Need additional imaging evaluation and/or prior mammograms for comparison.. An ultrasound examination of the right breast asymmetric density will be performed for further evaluation. RECOMMENDATION: Ultrasound. A letter with findings and recommendations will be mailed to the patient. Reading Location: [id number] CC: Dr. Joyce Roe MD Reheater: Signed Normal [facility] Breast imaging reportOrdered By: Viri Ruiz on 01-10-2025 Study report [facility] Imaging Services [address] [address] SCRN MAMM (CAD)W/LOTUS BILAT MR#: [id number] Acct: [id number] Name: PETER MARIEE Rep #: [id number] : 1935 F 89 From: Maryanne Ruiz MD PCP: Dr. Joyce Roe MD Status: PRE C LI Study:SCRN MAMM (CAD)W/LOTUS BILAT Date of Exa m: 01/10/25 Exam# [id number] Ordering Dr: Joyce Roe MD EXAM: SCRN MAMM (CAD)W/LOTUS BILAT 01/10/2025 CLINICAL HISTORY: F, Age 89 y/o , SCRN MAMM (CAD)W/LOTUS BILAT TECHNIQUE: Bilateral screening digital breast tomosynthesis with 2D and 3D images. Computeraided detection. COMPARISON: Prior exam(s) dated 07/16/2023, 07/15/2022, 06/24/2021, 01/16/2020. FINDINGS: TISSUE DENSITY: The breast tissue is extremely dense which lowers the sensitivity of mammography. The mammogram demonstrates that the patient has dense breasts. Supplemental screening with whole breast ultrasound or MRI may be considered for further evaluation. Bilateral Breast Mammographic Findings: There is an asymmetry in the inferior right breast at middle depth visualized onthe MLO view. No significant masses, calcifications or other abnormalities are identified in the left breast. BI/SCRN MAMM (CAD)W/LOTUS BILAT IMPRESSION: The asymmetry in the inferior right breast at middle depth visualized on the MLOview requires further evaluation. Recommend diagnostic mammogram of the right breast and ultrasound on the day of diagnosticif indicated. Right Breast: BIRADS 0 Incomplete: Need additional imaging evaluation and/or prior mammograms for comparison.. Left Breast: BIRADS 1 NEGATIVE. OVERALL FINAL ASSESSMENT: BIRADS 0 Incomplete: Need additional imaging evaluation and/or prior mammograms for comparison.. RECOMMENDATION: Additional projections. A letter with findings and recommendations will be mailed to the patient. Reading Location: [facility] CC: Dr. Joyce Roe MD ~ Reheater: Signed [facility] SCRN MAMM (CAD)W/LOTUS BILATo n 01-10-2025 SCRN MAMM (CAD)W/LOTUS BILAT [facility] Services [address] [place] [address] SCRN MAMM (CAD)W/LOTUS BILAT MR#: [id number] Acct: [id number] Name: PETER MARIEE Rep #: [id number] : 1935 F 89 From: Viri Ruiz MD PCP: Dr. Joyce Roe MD Status: PRE CLI Study: SCRN MAMM (CAD)W/LOTUS BILAT Date of Exam: 03/30 Exam# [id number] Ordering Dr: Joyce Roe MD EXAM: SCRN MAMM (CAD)W/LOTUS BILAT 01/10/2025 CLINICAL HISTORY: F, Age 89 y/o , SCRN MAMM (CAD)W/LOTUS BILAT TECHNIQUE: Bilateral screening digital breast tomosynthesis with 2D and 3D images. Computer aided detection. COMPARISON: Prior exam(s) dated 07/16/2023, 07/15/2022, 06/24/2021, 01/16/2020. FINDINGS: TISSUE DENSITY: The breast tissue is extremely dense which lowers the sensitivity of mammography. The mammogram demonstrates that the patient has dense breasts. Supplemental screening with whole breast ultrasound or MRI may be considered for further evaluation. Bilateral Breast Mammographic Findings: There is an asymmetry in the inferior right breast at middle depth visualized on the MLO view. No significant masses, calcifications or other abnormalities are identified in the left breast. BI/SCRN MAMM (CAD)W/LOTUS BILAT IMPRESSION: The asymmetry in the inferior right breast at middle depth visualized on the MLO view requires further evaluation. Recommend diagnostic mammogram of the right breast and ultrasound on the day of diagnostic if indicated. Right Breast: BIRADS 0 Incomplete: Need additional imaging evaluation and/or prior mammograms for comparison.. Left Breast: BIRADS 1 NEGATIVE. OVERALL FINAL ASSESSMENT: BIRADS 0 Incomplete: Need additional imaging evaluation and/or prior mammograms for comparison.. RECOMMENDATION: Additional projections. A letter with findings and recommendations will be mailed to the patient. Reading Location: [facility] CC: Dr. Joyce Roe MD Reheater: Signed [facility] CNOVon 11-13-2024 [facility] Office Visit (GENSWS ) -- PETER MARIEE ([id number]) 1935 F Date Time Provider Department 11/13/24 2:00 PM JASPER PEACOCK During your visit today, we recorded the following information about you: Pulse Blood pressure Weight Height 61/minute 121/69 54.4 kg 1.549 m Kelsie Vigil MA 11/13/2024 2:33 PM Signed Miralax daily for regularity. Increase water intake. Kelsie Vigil MA 12/01/2024 9:57 AM Signed REVIEW OF SYSTEMS: General: The patient denies fatigue, denies weight loss, denies weight gain, denies feeling hot, and denies feelings of cold. Eyes: The patient denies glaucoma, denies eye injury/surgery, wears glasses or contacts. Ear/Nose/Throat: The patient denies allergies, denies hayfever, denies ear infections, and denies bloody noses. Cardiovascular: The patient denies chest pain, denies heart disease, denies high blood pressure,denies cardiac stent, NOTES prior heart attack, denies irregular heart beat, denies high cholesterol, denies poor circulation, denies heart failure, other cardiac issues, denies claudication, denies cold feet, denies peripheral arterial stent. Respiratory: The patient denies tuberculosis, denies pneumonia, denies frequent cough, denies pulmonary embolism, denies shortness of breath, and denies coughing up blood. Gastrointestinal: The patient denies difficulty swallowing, NOTES acid reflux, denies ulcers, denies vomiting, denies jaundice/hepatitis, denies gallbladder problems, denies black or tarry stools, denies hemorrhoids, denies bleeding from rectum, denies diverticulitis, denies constipation, denies diarrhea, denies loss of stool control, and denies hernias. Kidney/Bladder: The patient denies kidney stones, denies urine infections, and denies bloody urine. Skin: The patient denies a history of skin cancer, denies bleeding/changing moles, and denies a history of skin rash. Neurologic: The patient denies a history of epilepsy/convulsions, denies headaches, denies head/spinal injuries, and denies stroke/TIA. Psychiatric: The patient denies psychiatric medications, denies depression, and denies voices, denies substance abuse. Endocrine: The patient denies thyroid disorders, denies diabetes, and denies hormonal problems. Hematologic: The patient denies a history of bruising, denies bleeding, and denies anemia, denies blood clots. Infections: The patient NOTES a history of measles and mumps, denies rheumatic fever, and denies sexually transmitted diseases. Musculoskeletal: The patient denies back pain/injury, NOTES back problems, denies sciatica, denies knee/foot trouble, NOTES arthritis, or denies gout. When was patient's last Mammogram screening? 07/2022 Last Colonoscopy:09/2024 SHAGGY Roth Daniel P, MD 12/01/2024 9:57 AM Signed HISTORY AND PHYSICAL Peter Мария Mariee 1935 REFERRING PHYSICIAN: Joyce Roe MD CHIEF COMPLAINT: Consult HPI: The patient is a 89 year old female with a complaint of colitis. Patient had a recent admission to [facility] where she had a scope that showed inflammation. She was started on medication for this she is here today to discuss if this medication is appropriate. The patient is being seen by me today at the request of Dr. 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 PAST MEDICAL HISTORY Diagnosis Date Acute myocardial infarction of other specified sites, episode of care unspecified 09/06/1998 Myocardial Infarction Coronary atherosclerosis of unspecified type of vessel, pascua yaqui or graft Coronary artery disease Hypertension Mixed hyperlipidemia Osteoporosis PAST SURGICAL HISTORY Procedure Laterality Date COLONOSCOPY FLX DX W/COLLJ SPEC WHEN PFRMD 01/20/16 Colonoscopy EXC CYST/ABERRANT BREAST TISSUE OPEN 1/> LESION 05/02/2008 Left [place] LAPAROSCOPY SURG CHOLECYSTECTOMY Cholecystectomy, lap PAST SURGICAL HISTORY OF 2014 heart bypass TOTAL ABDOMINAL HYSTERECT W/WO RMVL TUBE OVARY Hysterectomy, JYOTI - ovaries still present TRANSCATH STENT INIT VESSEL,PERCUT 1998 Transcath stent init vessel percut Current Outpatient Medications Medication Sig FOLIC ACID ORAL Take by mouth once daily. TURMERIC ORAL Take by mouth once daily. hydroCHLOROthiazide 25 mg tablet 25 mg. Every 3 days Ibandronate 150 mg tablet once every month. omeprazole (PRILOSEC) 20 mg capsule Take 1 capsule by mouth every afternoon. amLODIPine (NORVASC) 10 mg tablet Take 1 tablet by mouth every afternoon. rosuvastatin (CRESTOR) 20 mg tablet Take 1 tablet by mouth every afternoon. GLUC/LÓPEZ-MSM#1/C/KRISTIE/REAGAN /BOR (OSTEO BI-FLEX TRIPLE STRENGTH ORAL) Take 2 tablets by mouth once daily. ATENOLOL 25 MG TAB Take one(1) tablet daily. ASPIRIN 81 MG CHEWABLE TAB Take one(1) tablet daily. calcium carb (more content not included)... Normal [facility] CNOVon 10-17-2024 CNOV Office Visit (NEAGCL M) -- PETER MARIEE ([id number]) 1935 F Date Time Provider Department 10/17/24 9:45 AM JERZY GLASSLM During your visit today, we recorded the following information about you: Pulse Respiration Blood pressure Weight 61/minute 16/minute 147/70 55.2 kg Height 1.588 m Jerzy Glass MD 10/17/2024 10:30 AM Signed NEUROSURGERY FOLLOW UP OFFICE NOTE Dr. Jerzy Glass MD, FACS Date of visit: October 17, 2024 Patient Name: Ms.[place]ia Мария Mariee Date of : 1935 Current Age: [age] year old Sex: female MRN/E# [id number] Last Office Visit: 10/10/2024 CHIEF COMPLAINT: Patient presents with: Established Patient SUBJECTIVE: The patient presents as a follow up with imaging (MRI B) for evaluation. This is an 89 year old female with no significant PMHx who was referred by Dr. Joyce Roe for neurosurgical evaluation. She was seen with her daughter for consult on 10/10/[address] B. She reported that she had a GLF on 09/30/24 and was taken to an outside ED. The fall caused her to strike her face. LOC was unknown. Workup was completed and showed a fracture of the right nasal bone (minimally depressed), no fracture of the cervical spine and an incidental finding of a meningioma arising from the junction of the left tentorium and petrous temporal bone. She reported that she was doing well in regard to the recent fall. She stated that she had been having difficulty with her gait and balance over the last few years. She also felt as if her handwriting had worsened. Her penmanship is very small. Otherwise no issues. Neurologically she was intact with the exception of mild gait disturbance. CT was reviewed and showed a suspected meningioma arising from the junction of the left tentorium and petrous temporal bone. Treatment options were discussed with the patient and her daughter. Recommendation was to obtain a MRI brain to further define this lesion and to determine a treatment plan. They were advised that if indeed this turns out to be a meningioma surgical excision is not recommended. Today she states she is overall doing well. She denies any new or concerning issues since last visit. She presents for image review, evaluation and plan of care. MEDICATIONS: Keppra: No Dexamethasone: No SYMPTOMS: None PREVIOUS CONSERVATIVE TREATMENTS: None SURGICAL RISK: Smoker: Never Diabetic: No Anticoagulants / Antiplatelets: ASA 81 mg Occupation: Retired PREVIOUS NEUROSURGERY: None PAIN EVALUATION No data found in the last 1 encounters. PAST MEDICAL HISTORY Diagnosis Date Acute myocardial infarction of other specified sites, episode of care unspecified 1998 Myocardial Infarction Coronary atherosclerosis of unspecified type of vessel, pascua yaqui or graft Coronary artery disease PAST SURGICAL HISTORY Procedure Laterality Date COLONOSCOPY FLX DX W/COLLJ SPEC WHEN PFRMD 01/20/16 Colonoscopy EXC CYST/ABERRANT BREAST TISSUE OPEN 1/> LESION 05/02/2008 Left [place] LAPAROSCOPY SURG CHOLECYSTECTOMY Cholecystectomy, lap PAST SURGICAL HISTORY OF 2013 heart bypass TOTAL ABDOMINAL HYSTERECT W/WO RMVL TUBE OVARY Hysterectomy, JYOTI - ovaries still present TRANSCATH STENT INIT VESSEL,PERCUT 1998 Transcath stent init vessel percut FAMILY HISTORY Problem Relation Age of Onset Breast Cancer Mother Cancer Mother ovarian Cancer Father throat Breast Cancer Sister Breast Cancer Daughter ALLERGIES No Known Allergies Current Outpatient Medications Medication Sig Dispense Refill hydroCHLOROthiazide 25 mg tablet 25 mg. Ibandronate 150 mg tablet omeprazole (PRILOSEC) 20 mg capsule Take 1 capsule by mouth every afternoon. amLODIPine (NORVASC) 10 mg tablet Take 1 tablet by mouth every afternoon. rosuvastatin (CRESTOR) 20 mg tablet Take 1 tablet by mouth every afternoon. GLUC/LÓPEZ-MSM#1/C/KRISTIE/REAGAN /BOR (OSTEO BI-FLEX TRIPLE STRENGTH ORAL) Take 2 tablets by mouth once daily. ATENOLOL 25 MG TAB Take one(1) tablet daily. 0 ASPIRIN 81 MG CHEWABLE TAB Take one(1) tablet daily. 0 calcium carbonate/vitamin d3(CALCIUM 600 + D 600 MG-400 UNIT TAB) 0 iv contrast (will be provided with radiology test) MRI Brain Inject, intravenously, once for 1 dose.No IV access, insert saline lock prior to beginning of sedation, infusion, injection of imaging exam.Discontinue saline lock post exam. If Pt. has a central line or IVAD, may access for administration according to line specific nursing protocol.Once exam is complete flush line and de-access according to line specific nursing protocol in the MR contrast administration guidelines link 1 Each 0 No current facility-administered medications for this visit. REVIEW OF SYSTEMS: Review of Systems Constitutional: Negative for chills, diaphoresis (Negative for night sweats.) and fever. HENT: Negative for ear discha (more content not included)... Normal [facility] CNOVon 10-10-2024 CNOV Office Visit (NEAGCL M) -- PETER MARIEE ([id number]) 1935 F Date Time Provider Department 10/10/24 11:00 AM JERZY GLASS NEAGCLM During your visit today, we recorded the following information about you: Pulse Respiration Blood pressure Weight 60/minute 16/minute 159/70 57 kg Height 1.588 m Jerzy Glass MD 10/10/2024 11:13 AM Signed NEUROSURGERY CONSULT NOTE Dr. Jerzy Glass MD, [facility] Date of visit: October 10, 2024 Patient Name: Ms.Georgia Мария Mariee Date of : 1935 Current Age: [age] year old Sex: female MRN/E# [id number] CHIEF COMPLAINT: Patient presents with: New Patient . HISTORY OF PRESENT ILLNESS : The patient is a 89 year old female with no significant PMHx who is referred by Dr. Joyce Roe for neurosurgical evaluation. The patient presents as a new patient with her daughter with imaging (CT Head) for evaluation. Patient had a GLF on 09/30/24 and was taken to an outside ED. The fall caused her to strike her face. LOC was unknown. Workup was completed and showed a fracture of the right nasal bone (minimally depressed), no fracture of the cervical spine and an incidental finding of a meningioma arising from the junction of the left tentorium and petrous temporal bone. Recommendation was to be seen by Neurosurgery for further evaluation prompting her visit today. She states she is overall doing well in regard to the recent fall. States she has had difficulty with her gait and balance especially over the last few years. She also feels as if her handwriting has worsened. Her penmanship is very small. Otherwise no issues. She presents for image review, evaluation and plan of care. SYMPTOMS: None MEDICATIONS: Anticonvulsant: No Dexamethasone: No PREVIOUS CONSERVATIVE TREATMENTS: None SURGICAL RISK: Smoker: Never Diabetic: No Anticoagulants / Antiplatelets: ASA 81 mg Occupation: Retired PREVIOUS NEUROSURGERY: None PAIN EVALUATION No data found in the last 1 encounters. PAST MEDICAL HISTORY Diagnosis Date Acute myocardial infarction of other specified sites, episode of care unspecified 1998 Myocardial Infarction Coronary atherosclerosis of unspecified type of vessel, pascua yaqui or graft Coronary artery disease PAST SURGICAL HISTORY Procedure Laterality Date COLONOSCOPY FLX DX W/COLLJ SPEC WHEN PFRMD 01/20/16 Colonoscopy EXC CYST/ABERRANT BREAST TISSUE OPEN 1/> LESION 05/02/2008 Left [place] LAPAROSCOPY SURG CHOLECYSTECTOMY Cholecystectomy, lap PAST SURGICAL HISTORY OF 2013 heart bypass TOTAL ABDOMINAL HYSTERECT W/WO RMVL TUBE OVARY Hysterectomy, JYOTI - ovaries still present TRANSCATH STENT INIT VESSEL,PERCUT 1998 Transcath stent init vessel percut FAMILY HISTORY Problem Relation Age of Onset Breast Cancer Mother Cancer Mother ovarian Cancer Father throat Breast Cancer Sister Breast Cancer Daughter ALLERGIES No Known Allergies Current Outpatient Medications Medication Sig Dispense Refill Ibandronate 150 mg tablet omeprazole (PRILOSEC) 20 mg capsule Take 1 capsule by mouth every afternoon. amLODIPine (NORVASC) 10 mg tablet Take 1 tablet by mouth every afternoon. rosuvastatin (CRESTOR) 20 mg tablet Take 1 tablet by mouth every afternoon. GLUC/LÓPEZ-MSM#1/C/KRISTIE/REAGAN /BOR (OSTEO BI-FLEX TRIPLE STRENGTH ORAL) Take 2 tablets by mouth once daily. ATENOLOL 25 MG TAB Take one(1) tablet daily. 0 ASPIRIN 81 MG CHEWABLE TAB Take one(1) tablet daily. 0 calcium carbonate/vitamin d3(CALCIUM 600 + D 600 MG-400 UNIT TAB) 0 iv contrast (will be provided with radiology test) MRI Brain Inject, intravenously, once for 1 dose.No IV access, insert saline lock prior to beginning of sedation, infusion, injection of imaging exam.Discontinue saline lock post exam. If Pt. has a central line or IVAD, may access for administration according to line specific nursing protocol.Once exam is complete flush line and de-access according to line specific nursing protocol in the MR contrast administration guidelines link 1 Each 0 No current facility-administered medications for this visit. REVIEW OF SYSTEMS Review of Systems Constitutional: Negative for chills, diaphoresis (Negative for night sweats.) and fever. HENT: Negative for ear discharge and rhinorrhea. Eyes: Negative for discharge. Respiratory: Negative for cough, shortness of breath and wheezing. Cardiovascular: Negative for chest pain, palpitations and leg swelling. Gastrointestinal: Negative for constipation, diarrhea, nausea and vomiting. Endocrine: Negative for cold intolerance and heat intolerance. Genitourinary: Negative for frequency. Negative for urinary incontinence and urinary retention. Musculoskeletal: Positive for gait problem. Negative for back pain, joint swelling, myalgias and neck pain. Skin: Negative for rash (Negative for hives and skin lesions.). Loy (more content not included)... Normal [facility] MRI BRAIN WO/W IVCONon 10-10 MRI BRAIN WO/W IVCON * * *Final Report* * * DATE OF EXAM: Oct 10 2024 12:51PM A1M 0295 - MRI BRAIN WO/W IVCON / PROCEDURE REASON: multiple diagnoses * * * * Physician Interpretation * * * * EXAMINATION: MRI BRAIN WO/W IVCON CLINICAL HISTORY: Abnormal head CT, probable posterior fossa meningioma on C, recent trauma TECHNIQUE: Routine brain MRI protocol without and with contrast including diffusion images. MQ: [id number] Contrast: 6 mL Elucirem IV COMPARISON: 09/30/2024 CT from outside center RESULT: Acute Change: There is no evidence of restricted diffusion to suggest an acute infarct. Hemorrhage: No evidence of prior parenchymal hemorrhage on the susceptibility weighted images. Mass Lesion/ Mass Effect: Homogeneously enhancing dural based extra-axial mass is seen in the anterior portion left side of the posterior fossa at the junction of the left petrous bone/left tentorial leaflet. It measures 1.8 cm craniocaudal by 1.3 cm AP by 1.8 cm transverse. Mild mass effect on the flocculus left cerebellar hemisphere. No involvement of the internal auditory canals. Internal auditory canals with 7th and 8th cranial nerves as well as trigeminal nerves appear unremarkable. On postcontrast axial image 67 and sagittal image 45, enhancing extra-axial dural based mass anterior right frontal region which measures 9.3 mm craniocaudal 10 mm AP 10 mm transverse. Mild mass effect on the subjacent right frontal lobe cortex. Enhancement pattern is more heterogeneous most likely related to calcific component as seen on the previous CT brain. No associated vasogenic edema. Chronic Change: Mild degree of supratentorial and midbrain chronic microvascular ischemic changes. Chronic microvascular ischemic change in each basal ganglia. Parenchyma: Mild parenchymal volume loss Ventricles: Normal caliber and morphology. Skull Base: Hypothalamic and pituitary region are grossly normal. Craniocervical junction is normal. No significant marrow replacement process. Vasculature: Major intracranial arterial structures, and dural venous sinuses show typical flow void, suggesting patency.. Other: The visualized paranasal sinuses and mastoid air cells are clear. The orbits and extracranial soft tissues are unremarkable. IMPRESSION: 1. 1.8 x 1.3 x 1.8 cm homogeneously enhancing dural based mass in the anterior portion of the left side posterior fossa at the junction of the left petrous bone/left tentorial leaflet. MRI characteristics are most consistent with a meningioma. 2. 9.3 x 10 x 10 mm inhomogeneous enhancing extra-axial dural based mass anterior right frontal region. MRI characteristics most consistent with partly calcified meningioma. 3. No MRI evidence of traumatic brain injury/hemorrhage [facility] Transcribe Date/Time: Oct 12 2024 8:13A Dictated by : SHAKILA PIERRE MD This examination was interpreted and the report reviewed and electronically signed by: SHAKILA PIERRE MD on Oct 12 2024 8:24AM EST [id number] [facility] 10-05-2024 [facility] Telephone (NEAGCLM) -- PETER MARIEE ([id number]) 1935 F Date Time Provider Department 10/05/24 JERZY GLASS NEAGCLM During your visit today, we recorded the following information about you: Nicolette Joe 10/05/2024 9:25 AM Signed Received a referral for patient to be seen by one of our providers. Made 1st attempt to contact patient to discuss scheduling. Patient did not answer. Left a voicemail requesting patient call the office to schedule. Patient being seen for meningioma, will need to bring imaging from of Head/Brain if possible. Allergies As of Date: 10/05/2024 (No Known Allergies) Date Reviewed: 02/10/2016 Reviewed by: Sara Jacobson (Gizzard Skin Remover) - Fully Assessed Prescriptions as of 10/05/2024 - amLODIPine (NORVASC) 5 mg tablet Take 5 mg by mouth once daily. - Omeprazole 40 mg capsule Take 40 mg by mouth once daily. - GLUC/LÓPEZ-MSM#1/C/KRISTIE/REAGAN /BOR (OSTEO BI-FLEX TRIPLE STRENGTH ORAL) Take 2 tablets by mouth once daily. - simvastatin(ZOCOR 20 MG TAB) Take one(1) tablet daily at bedtime. - ATENOLOL 25 MG TAB Take one(1) tablet daily. - ASPIRIN 81 MG CHEWABLE TAB Take one(1) tablet daily. - calcium carbonate/vitamin d3(CALCIUM 600 + D 600 MG-400 UNIT TAB) - multivitamins w-minerals/lut(CENTRUM SILVER TAB) Take one(1) tablet daily. - OMEGA 3-VITAMIN E-FISH OIL 700 MG-15 UNIT-1,100 MG CAP Problem List As Of Date 10/05/2024 Noted Resolved LUMP OR MASS IN BREAST [N63.0] 02/08/2008 NE INFER FIRST EPISODE CARE [I21.19] 04/25/2008 CORONARY ATHEROSCLER UNSPEC VESSEL [I25.10] 04/25/2008 Encounter Status:Closed by NICOLETTE JOE on 10/05/24 Normal [facility] CBC panel Auto (Bld)on 09-30 Erythrocyte distribution width (RBC) [Ratio] 12.6 % Normal 11.5-14.5 [facility] Comment on above: Performed By: #### 5 8410-2 #### MIN PÉREZ ([id number]) [facility] ([facility]) [address] [place] [address] [id number] Hematocrit (Bld) [Volume fraction] 40.3 % Normal 36.0-46.0 [facility] Comment on above: Performed By: #### 5 8410-2 #### MIN PÉREZ ([id number]) [facility] ([facility]) [address] [place] [address] 43553 Hemoglobin (Bld) [Mass/Vol] 13.1 g/dL Normal 12.0-16.0 [facility] Comment on above: Performed By: #### 5 8410-2 #### MIN PÉREZ ([id number]) [facility] ([facility]) [address] [place] [address] 20400 MCH (RBC) [Entitic mass] 28.2 pg Normal 26.0-34.0 [facility] Comment on above: Performed By: #### 5 8410-2 #### MIN PÉREZ ([id number]) [facility] ([facility]) [address] [place] [address] 69536 MCHC (RBC) [Mass/Vol] 32.5 g/dL Normal 32.0-36.0 [facility] Comment on above: Performed By: #### 5 8410-2 #### MIN PÉREZ ([id number]) [facility] ([facility]) [address] [place], [place] [id number] MCV (RBC) [Entitic vol] 87 fL Normal 80-100 [facility] Comment on above: Performed By: #### 5 8410-2 #### MIN PÉREZ ([id number]) [facility] ([facility]) [address] [place] [address] 53319 Nucleated RBC/100 WBC (Bld) [Ratio] 0.0 /100 WBCs Normal 0.0-0.0 [facility] Comment on above: Performed By: #### 5 8410-2 #### MIN PÉREZ ([id number]) [facility] ([facility]) [address] [place] [address] 97419 Platelets (Bld) [#/Vol] 222 x10*3/uL Normal 150-450 [facility] Comment on above: Performed By: #### 5 8410-2 #### MIN PÉREZ ([id number]) [facility] ([facility]) [address] [place] [address] 18053 RBC (Bld) [#/Vol] 4.65 x10*6/uL Normal 4.00-5.[address] [facility] Comment on above: Performed By: #### 5 8410-2 #### MIN PÉREZ ([id number]) [facility] ([facility]) [address] [place] [address] 96574 WBC (Bld) [#/Vol] 10.5 x10*3/uL Normal 4.4-11.3 [facility] Comment on above: Performed By: #### 5 8410-2 #### COPELAND BETO ([id number]) [facility] ([facility]) [address] [place] [address] CT 3D RECONSTRUCTIONon 09-30 CT 3D RECONSTRUCTION Interpreted By: Julio Zavala, STUDY: CT HEAD WO IV CONTRAST; CT CERVICAL SPINE WO IV CONTRAST; CT FACIAL BONES WO IV CONTRAST; CT 3D RECONSTRUCTION; 09/30/2024 10:12 pm INDICATION: Signs/Symptoms:head injury; Signs/Symptoms:nasal and lip injury; Signs/Symptoms:fall. COMPARISON: None. ACCESSION NUMBER(S): [id number]; [id number]; [id number]; [id number] ORDERING CLINICIAN: LEONA PERKINS TECHNIQUE: Axial noncontrast images of the head with coronal and sagittal reformatted images. Axial noncontrast images of the facial bones with coronal and sagittal reformatted images. 3D facial reconstructions were created on an independent workstation and reviewed. Axial noncontrast images of the cervical spine with coronal and sagittal reformatted images. FINDINGS: CT HEAD: BRAIN PARENCHYMA: No acute intraparenchymal hemorrhage or parenchymal evidence of acute large territory ischemic infarct. Delong-white matter distinction is preserved. No mass-effect. VENTRICLES and EXTRA-AXIAL SPACES: There is a 1.9 cm x 1.1 cm soft tissue density extra-axial lesion in the left cerebellopontine angle cistern arising from the undersurface of the left tentorium and petrous temporal bone consistent with meningioma, containing punctate internal calcification. No acute extra-axial or intraventricular hemorrhage. No effacement of cerebral sulci. The ventricles and sulci are age-concordant. MASTOIDS: Well-aerated. CALVARIUM: No skull fracture. CT MAXILLOFACIAL SKELETON: FACIAL BONES: There is a linear lucency and slight step-off at the right nasal bone consistent with a nondisplaced fracture. There is also a transverse lucency across the tip of both nasal bones consistent with acute fracture. There is a tiny chip fracture at the tip of the anterior nasal spine wall more menses axial images 36, series 2; sagittal image 41, series 6). The bony orbits are intact. ORBITS: The globes, extraocular muscles, and optic nerve sheath complexes are intact. No retrobulbar or subperiosteal hematoma. SOFT TISSUES: Soft tissue swelling of the nasal bridge. PARANASAL SINUSES: No hemorrhage or air-fluid levels within the paranasal sinuses. Mild mucosal thickening in the maxillary sinuses (left > right). OTHER FINDINGS: None. CT CERVICAL SPINE: PREVERTEBRAL SOFT TISSUES: Within normal limits. CRANIOCERVICAL JUNCTION: Intact. ALIGNMENT: New degenerative grade 1 anterolisthesis of C4 on C5. No traumatic malalignment or traumatic facet widening. VERTEBRAE: No acute fracture. Vertebral body heights are maintained. SPINAL CANAL/INTERVERTEBRAL DISCS: No high-grade spinal canal stenosis. Severe C5-C6 disc height loss. Partial ankylosis of the C3-C4 disc space noted. Small C5-C6 disc spur complex result in mild canal stenosis. NEURAL FORAMINA: Multilevel uncovertebral joint and facet arthropathy notably contribute to mild left C2-C3 foraminal stenosis, severe left C3-C4 foraminal stenosis, severe left C4-C5 foraminal stenosis, severe right and moderate left C5-C6 foraminal stenosis, mild right C6-C7 foraminal stenosis. OTHER: None. IMPRESSION: CT HEAD: 1. No acute intracranial abnormality or calvarial fracture. 2. 1.9 cm x 1.1 cm meningioma arising from the junction of the left tentorium and petrous temporal bone. CT MAXILLOFACIAL SKELETON: 1. Acute minimally depressed fracture of the right nasal bone and acute nondisplaced transverse fracture across the tip of both nasal bones. 2. Acute nondisplaced chip fracture tip of the anterior nasal spine of the maxilla. CT CERVICAL SPINE: 1. No acute fracture or traumatic malalignment of the cervical spine. 2. Spondylotic changes of the cervical spine as detailed above. MACRO: None. Signed by: Julio Billingsley 09/30/2024 11:04 PM Dictation workstation: [id number] [facility] CT CERVICAL SPINE WO IV CONT [facility] 09-30-2024 CT CERVICAL SPINE WO IV CONTRAST Interpreted By: Julio Billingsley, STUDY: CT HEAD WO IV CONTRAST; CT CERVICAL SPINE WO IV CONTRAST; CT FACIAL BONES WO IV CONTRAST; CT 3D RECONSTRUCTION; 09/30/2024 10:12 pm INDICATION: Signs/Symptoms:head injury; Signs/Symptoms:nasal and lip injury; Signs/Symptoms:fall. COMPARISON: None. ACCESSION NUMBER(S): [id number]; [id number]; [id number]; [id number] ORDERING CLINICIAN: LEONA PERKINS TECHNIQUE: Axial noncontrast images of the head with coronal and sagittal reformatted images. Axial noncontrast images of the facial bones with coronal and sagittal reformatted images. 3D facial reconstructions were created on an independent workstation and reviewed. Axial noncontrast images of the cervical spine with coronal and sagittal reformatted images. FINDINGS: CT HEAD: BRAIN PARENCHYMA: No acute intraparenchymal hemorrhage or parenchymal evidence of acute large territory ischemic infarct. Delong-white matter distinction is preserved. No mass-effect. VENTRICLES and EXTRA-AXIAL SPACES: There is a 1.9 cm x 1.1 cm soft tissue density extra-axial lesion in the left cerebellopontine angle cistern arising from the undersurface of the left tentorium and petrous temporal bone consistent with meningioma, containing punctate internal calcification. No acute extra-axial or intraventricular hemorrhage. No effacement of cerebral sulci. The ventricles and sulci are age-concordant. MASTOIDS: Well-aerated. CALVARIUM: No skull fracture. CT MAXILLOFACIAL SKELETON: FACIAL BONES: There is a linear lucency and slight step-off at the right nasal bone consistent with a nondisplaced fracture. There is also a transverse lucency across the tip of both nasal bones consistent with acute fracture. There is a tiny chip fracture at the tip of the anterior nasal spine wall more menses axial images 36, series 2; sagittal image 41, series 6). The bony orbits are intact. ORBITS: The globes, extraocular muscles, and optic nerve sheath complexes are intact. No retrobulbar or subperiosteal hematoma. SOFT TISSUES: Soft tissue swelling of the nasal bridge. PARANASAL SINUSES: No hemorrhage or air-fluid levels within the paranasal sinuses. Mild mucosal thickening in the maxillary sinuses (left > right). OTHER FINDINGS: None. CT CERVICAL SPINE: PREVERTEBRAL SOFT TISSUES: Within normal limits. CRANIOCERVICAL JUNCTION: Intact. ALIGNMENT: New degenerative grade 1 anterolisthesis of C4 on C5. No traumatic malalignment or traumatic facet widening. VERTEBRAE: No acute fracture. Vertebral body heights are maintained. SPINAL CANAL/INTERVERTEBRAL DISCS: No high-grade spinal canal stenosis. Severe C5-C6 disc height loss. Partial ankylosis of the C3-C4 disc space noted. Small C5-C6 disc spur complex result in mild canal stenosis. NEURAL FORAMINA: Multilevel uncovertebral joint and facet arthropathy notably contribute to mild left C2-C3 foraminal stenosis, severe left C3-C4 foraminal stenosis, severe left C4-C5 foraminal stenosis, severe right and moderate left C5-C6 foraminal stenosis, mild right C6-C7 foraminal stenosis. OTHER: None. IMPRESSION: CT HEAD: 1. No acute intracranial abnormality or calvarial fracture. 2. 1.9 cm x 1.1 cm meningioma arising from the junction of the left tentorium and petrous temporal bone. CT MAXILLOFACIAL SKELETON: 1. Acute minimally depressed fracture of the right nasal bone and acute nondisplaced transverse fracture across the tip of both nasal bones. 2. Acute nondisplaced chip fracture tip of the anterior nasal spine of the maxilla. CT CERVICAL SPINE: 1. No acute fracture or traumatic malalignment of the cervical spine. 2. Spondylotic changes of the cervical spine as detailed above. MACRO: None. Signed by: Julio Billingsley 09/30/2024 11:04 PM Dictation workstation: [id number] [facility] CT FACIAL BONES WO IV CONTRA STon 09-30-2024 CT FACIAL BONES WO IV CONTRAST Interpreted By: Julio Billingsley, STUDY: CT HEAD WO IV CONTRAST; CT CERVICAL SPINE WO IV CONTRAST; CT FACIAL BONES WO IV CONTRAST; CT 3D RECONSTRUCTION; 09/30/2024 10:12 pm INDICATION: Signs/Symptoms:head injury; Signs/Symptoms:nasal and lip injury; Signs/Symptoms:fall. COMPARISON: None. ACCESSION NUMBER(S): [id number]; [id number]; [id number]; [id number] ORDERING CLINICIAN: LEONA PERKINS TECHNIQUE: Axial noncontrast images of the head with coronal and sagittal reformatted images. Axial noncontrast images of the facial bones with coronal and sagittal reformatted images. 3D facial reconstructions were created on an independent workstation and reviewed. Axial noncontrast images of the cervical spine with coronal and sagittal reformatted images. FINDINGS: CT HEAD: BRAIN PARENCHYMA: No acute intraparenchymal hemorrhage or parenchymal evidence of acute large territory ischemic infarct. Delong-white matter distinction is preserved. No mass-effect. VENTRICLES and EXTRA-AXIAL SPACES: There is a 1.9 cm x 1.1 cm soft tissue density extra-axial lesion in the left cerebellopontine angle cistern arising from the undersurface of the left tentorium and petrous temporal bone consistent with meningioma, containing punctate internal calcification. No acute extra-axial or intraventricular hemorrhage. No effacement of cerebral sulci. The ventricles and sulci are age-concordant. MASTOIDS: Well-aerated. CALVARIUM: No skull fracture. CT MAXILLOFACIAL SKELETON: FACIAL BONES: There is a linear lucency and slight step-off at the right nasal bone consistent with a nondisplaced fracture. There is also a transverse lucency across the tip of both nasal bones consistent with acute fracture. There is a tiny chip fracture at the tip of the anterior nasal spine wall more menses axial images 36, series 2; sagittal image 41, series 6). The bony orbits are intact. ORBITS: The globes, extraocular muscles, and optic nerve sheath complexes are intact. No retrobulbar or subperiosteal hematoma. SOFT TISSUES: Soft tissue swelling of the nasal bridge. PARANASAL SINUSES: No hemorrhage or air-fluid levels within the paranasal sinuses. Mild mucosal thickening in the maxillary sinuses (left > right). OTHER FINDINGS: None. CT CERVICAL SPINE: PREVERTEBRAL SOFT TISSUES: Within normal limits. CRANIOCERVICAL JUNCTION: Intact. ALIGNMENT: New degenerative grade 1 anterolisthesis of C4 on C5. No traumatic malalignment or traumatic facet widening. VERTEBRAE: No acute fracture. Vertebral body heights are maintained. SPINAL CANAL/INTERVERTEBRAL DISCS: No high-grade spinal canal stenosis. Severe C5-C6 disc height loss. Partial ankylosis of the C3-C4 disc space noted. Small C5-C6 disc spur complex result in mild canal stenosis. NEURAL FORAMINA: Multilevel uncovertebral joint and facet arthropathy notably contribute to mild left C2-C3 foraminal stenosis, severe left C3-C4 foraminal stenosis, severe left C4-C5 foraminal stenosis, severe right and moderate left C5-C6 foraminal stenosis, mild right C6-C7 foraminal stenosis. OTHER: None. IMPRESSION: CT HEAD: 1. No acute intracranial abnormality or calvarial fracture. 2. 1.9 cm x 1.1 cm meningioma arising from the junction of the left tentorium and petrous temporal bone. CT MAXILLOFACIAL SKELETON: 1. Acute minimally depressed fracture of the right nasal bone and acute nondisplaced transverse fracture across the tip of both nasal bones. 2. Acute nondisplaced chip fracture tip of the anterior nasal spine of the maxilla. CT CERVICAL SPINE: 1. No acute fracture or traumatic malalignment of the cervical spine. 2. Spondylotic changes of the cervical spine as detailed above. MACRO: None. Signed by: Julio Billingsley 09/30/2024 11:04 PM Dictation workstation: [id number] [facility] CT HEAD WO IV CONTRASTon CT HEAD WO IV CONTRAST Interpreted By: Julio Billingsley, STUDY: CT HEAD WO IV CONTRAST; CT CERVICAL SPINE WO IV CONTRAST; CT FACIAL BONES WO IV CONTRAST; CT 3D RECONSTRUCTION; 09/30/2024 10:12 pm INDICATION: Signs/Symptoms:head injury; Signs/Symptoms:nasal and lip injury; Signs/Symptoms:fall. COMPARISON: None. ACCESSION NUMBER(S): [id number]; [id number]; [id number]; [id number] ORDERING CLINICIAN: LEONA PERKINS TECHNIQUE: Axial noncontrast images of the head with coronal and sagittal reformatted images. Axial noncontrast images of the facial bones with coronal and sagittal reformatted images. 3D facial reconstructions were created on an independent workstation and reviewed. Axial noncontrast images of the cervical spine with coronal and sagittal reformatted images. FINDINGS: CT HEAD: BRAIN PARENCHYMA: No acute intraparenchymal hemorrhage or parenchymal evidence of acute large territory ischemic infarct. Delong-white matter distinction is preserved. No mass-effect. VENTRICLES and EXTRA-AXIAL SPACES: There is a 1.9 cm x 1.1 cm soft tissue density extra-axial lesion in the left cerebellopontine angle cistern arising from the undersurface of the left tentorium and petrous temporal bone consistent with meningioma, containing punctate internal calcification. No acute extra-axial or intraventricular hemorrhage. No effacement of cerebral sulci. The ventricles and sulci are age-concordant. MASTOIDS: Well-aerated. CALVARIUM: No skull fracture. CT MAXILLOFACIAL SKELETON: FACIAL BONES: There is a linear lucency and slight step-off at the right nasal bone consistent with a nondisplaced fracture. There is also a transverse lucency across the tip of both nasal bones consistent with acute fracture. There is a tiny chip fracture at the tip of the anterior nasal spine wall more menses axial images 36, series 2; sagittal image 41, series 6). The bony orbits are intact. ORBITS: The globes, extraocular muscles, and optic nerve sheath complexes are intact. No retrobulbar or subperiosteal hematoma. SOFT TISSUES: Soft tissue swelling of the nasal bridge. PARANASAL SINUSES: No hemorrhage or air-fluid levels within the paranasal sinuses. Mild mucosal thickening in the maxillary sinuses (left > right). OTHER FINDINGS: None. CT CERVICAL SPINE: PREVERTEBRAL SOFT TISSUES: Within normal limits. CRANIOCERVICAL JUNCTION: Intact. ALIGNMENT: New degenerative grade 1 anterolisthesis of C4 on C5. No traumatic malalignment or traumatic facet widening. VERTEBRAE: No acute fracture. Vertebral body heights are maintained. SPINAL CANAL/INTERVERTEBRAL DISCS: No high-grade spinal canal stenosis. Severe C5-C6 disc height loss. Partial ankylosis of the C3-C4 disc space noted. Small C5-C6 disc spur complex result in mild canal stenosis. NEURAL FORAMINA: Multilevel uncovertebral joint and facet arthropathy notably contribute to mild left C2-C3 foraminal stenosis, severe left C3-C4 foraminal stenosis, severe left C4-C5 foraminal stenosis, severe right and moderate left C5-C6 foraminal stenosis, mild right C6-C7 foraminal stenosis. OTHER: None. IMPRESSION: CT HEAD: 1. No acute intracranial abnormality or calvarial fracture. 2. 1.9 cm x 1.1 cm meningioma arising from the junction of the left tentorium and petrous temporal bone. CT MAXILLOFACIAL SKELETON: 1. Acute minimally depressed fracture of the right nasal bone and acute nondisplaced transverse fracture across the tip of both nasal bones. 2. Acute nondisplaced chip fracture tip of the anterior nasal spine of the maxilla. CT CERVICAL SPINE: 1. No acute fracture or traumatic malalignment of the cervical spine. 2. Spondylotic changes of the cervical spine as detailed above. MACRO: None. Signed by: Julio Billingsley 09/30/2024 11:04 PM Dictation workstation: [id number] Normal [facility] Comprehensive metabolic 2000 panelon 09-30-2024 Albumin BCP dye [Mass/Vol] 4.2 g/dL Normal 3.4-5.0 [facility] Comment on above: Performed By: #### 2 4323-8 #### MIN PÉREZ ([id number]) [facility] ([facility]) [address] [place] [address] 81381 ALP [Catalytic activity/Vol] 67 U/L Normal 33-136 [facility] Comment on above: Performed By: #### 2 4323-8 #### MIN PÉREZ ([id number]) [facility] ([facility]) [address] [place] [address] ALT With P-5'-P [Catalytic activity/Vol] 15 U/L Normal 7-45 [facility] Comment on above: Result Comment: Ute ents treated with Sulfasalazine may generate falsely decreased results for ALT. Performed By: #### 2 4323-8 #### MIN PÉREZ ([id number]) [facility] ([facility]) [address] [place] [address] 94436 Anion gap [Moles/Vol] 12 mmol/L Normal 10-20 [facility] Comment on above: Performed By: #### 2 4323-8 #### MIN PÉREZ ([id number]) [facility] ([facility]) [address] [place] [address] 42575 AST With P-5'-P [Catalytic activity/Vol] 19 U/L Normal 9-39 [facility] Comment on above: Performed By: #### 2 4323-8 #### MIN PÉREZ ([id number]) [facility] ([facility]) [address] [place] [address] 55308 Bilirubin [Mass/Vol] 0.3 mg/dL Normal 0.0-1.[address] [facility] Comment on above: Performed By: #### 2 4323-8 #### MIN PÉREZ ([id number]) [facility] ([facility]) [address] [place] [address] 15988 Calcium [Mass/Vol] 9.5 mg/dL Normal 8.6-10.3 [facility] Comment on above: Performed By: #### 2 4323-8 #### MIN PÉREZ ([id number]) [facility] ([facility]) [address] [place] [address] Chloride [Moles/Vol] 104 mmol/L Normal 98-[address] [facility] Comment on above: Performed By: #### 2 4323-8 #### MIN PÉREZ ([id number]) [facility] ([facility]) [address] [place] [address] 18569 CO2 [Moles/Vol] 26 mmol/L Normal 21-32 [facility] Comment on above: Performed By: #### 2 4323-8 #### MIN PÉREZ ([id number]) [facility] ([facility]) [address] [place] [address] 03460 Creatinine [Mass/Vol] 1.12 mg/dL High 0.50-1.05 [facility] Comment on above: Performed By: #### 2 4323-8 #### MIN PÉREZ ([id number]) [facility] ([facility]) [address] [place] [address] 35496 Glomerular filtration rate/1.73 sq M.predicted 48 mL/min/1.73m*2 Low >60 [facility] Comment on above: Result Comment: Calc ulations of estimated GFR are performed using the 2020 CKD-EPI Study Refit equation without the race variable for the IDMS-Traceable creatinine methods. https://jasn.asnjournals.org/content/early//ASN.6828803 988 Performed By: #### 2 4323-8 #### MIN PÉREZ ([id number]) [facility] ([facility]) [address] [place] [address] 24967 Glucose [Mass/Vol] 150 mg/dL High 74-99 [facility] Comment on above: Performed By: #### 2 4323-8 #### MIN PÉREZ ([id number]) [facility] ([facility]) [address] [place] [address] 85217 Potassium [Moles/Vol] 3.4 mmol/L Low 3.5-5.3 [facility] Comment on above: Performed By: #### 2 4323-8 #### MIN PÉREZ ([id number]) [facility] ([facility]) [address] [place] [address] 52796 Protein [Mass/Vol] 6.4 g/dL Normal 6.4-8.2 [facility] Comment on above: Performed By: #### 2 4323-8 #### MIN PÉREZ ([id number]) [facility] ([facility]) [address] [place] [address] 02668 Sodium [Moles/Vol] 139 mmol/L Normal 136-145 [facility] Comment on above: Performed By: #### 2 4323-8 #### MIN PÉREZ ([id number]) [facility] ([facility]) [address] [place] [address] 88102 Urea nitrogen [Mass/Vol] 22 mg/dL Normal 6-23 [facility] Comment on above: Performed By: #### 2 4323-8 #### MIN PÉREZ ([id number]) [facility] ([facility]) [address] [place] [address] 68497 ECG 12-LEADon 09-30-2024 ECG 12-LEAD Ventricular Rate 70 Atrial Rate 70 P-R Interval 184 QRS Duration 140 Q-T Interval 460 QTC Calculation(Bazett) 496 P Austin 91 R Austin 151 T Austin 86 QRS Count 12 Q Onset 210 P Onset 118 P Offset 166 T Offset 440 QTC Fredericia 484 Diagnosis Suspect arm lead reversal, interpretation assumes no reversal Normal sinus rhythm Nonspecific intraventricular block Cannot rule out Septal infarct , age undetermined Lateral infarct , age undetermined Abnormal ECG No previous ECGs available See ED provider note for full interpretation and clinical correlation Confirmed by Royal Bales ([id number]) on 10/05/2024 10:09:44 PM Normal [facility] Troponin I.cardiac panelon 0 09-30-2024 Tropinin I.cardiac panel High sensitivity method 5 ng/L Normal 0-13 [facility] Comment on above: Order Comment: Less than 99th percentile of normal range cutoff- Female and children under 18 years old <14 ng/L; Male <21 ng/L: Negative Repeat testing should be performed if clinically indicated. Female and children under 18 years old 14-50 ng/L; Male 21-50 ng/L: Consistent with possible cardiac damage and possible increased clinical risk. Serial measurements may help to assess extent of myocardial damage. >50 ng/L: Consistent with cardiac damage, increased clinical risk and myocardial infarction. Serial measurements may help assess extent of myocardial damage. NOTE: Children less than 1 year old may have higher baseline troponin levels and results should be interpreted in conjunction with the overall clinical context. NOTE: Troponin I testing is performed using a different testing methodology at [facility] than at [facility]. Direct result comparisons should only be made within the same method. Performed By: #### 8 9577-1 #### COPELAND BETO ([id number]) [facility] ([facility]) [address] [place] [address] XR CHEST 1 VIEWon 09-30-2024 XR CHEST 1 VIEW Interpreted By: Laura Mcintosh, STUDY: Chest, single AP view. INDICATION: Signs/Symptoms:fall. COMPARISON: None. ACCESSION NUMBER(S): [id number] ORDERING CLINICIAN: LEONA PERKINS FINDINGS: The cardiac silhouette size is within normal limits. There is no focal consolidation, edema or pneumothorax. No sizeable pleural effusion. No acute osseous abnormality. Median sternotomy changes noted. IMPRESSION: 1. No acute cardiopulmonary process. MACRO: None. Signed by: Laura Pedroza 09/30/2024 10:26 PM Dictation workstation: [id number] Normal [facility] XR PELVIS 1-2 VIEWSon 2024 XR PELVIS 1-2 VIEWS Interpreted By: Laura Mcintosh, STUDY: Single view pelvis. INDICATION: Signs/Symptoms:fall. COMPARISON: None. ACCESSION NUMBER(S): [id number] ORDERING CLINICIAN: LEONA PERKINS FINDINGS: No acute fracture or malalignment. Bilateral hip joints are unremarkable with well preserved joint spaces. Soft tissues are within normal limits. IMPRESSION: 1. No acute fracture or malalignment of the osseous structures of pelvis. MACRO: None. Signed by: Laura Pedroza 09/30/2024 10:25 PM Dictation workstation: [id number] [facility] Colonoscopy Reporton 025 Colonoscopy Report [facility] Medical Records Department [address] [place] [address] Colonoscopy Report MR#: [id number] Acct: [id number] Name: PETER MARIEE Rep #: [id number] : 1935 89 From: Abdi Choi DO PCP: Dr. Joyec Roe MD [place] [facility] Patient Name: Peter Mariee Procedure Date: 09/29/2024 2:04 PM Date of : 1935 Age: 89 Procedure: Colonoscopy Indications: Hematochezia Providers: Abdi Choi DO Referring MD: Joyce Roe Medicines: Monitored Anesthesia Care Patient Profile: This is an 89 year old female. Refer to note in patient chart for documentation of history and physical. Last Colonoscopy: more than 10 years ago. Complications: No immediate complications. Procedure: Pre-Anesthesia Assessment: - Prior to the procedure, a History and Physical was performed, and patient medications and allergies were reviewed. The patient is competent. The risks and benefits of the procedure and the sedation options and risks were discussed with the patient. All questions were answered and informed consent was obtained. Patient identification and proposed procedure were verified by the physician in the pre-procedure area. Mental Status Examination: alert and oriented. Airway Examination: normal oropharyngeal airway and neck mobility. Respiratory Examination: clear to auscultation. CV Examination: normal. Prophylactic Antibiotics: The patient does not require prophylactic antibiotics. Prior Anticoagulants: The patient has taken no anticoagulant or antiplatelet agents except for NSAID medication. ASA Grade Assessment: II - A patient with mild systemic disease. After reviewing the risks and benefits, the patient was deemed in satisfactory condition to undergo the procedure. The anesthesia plan was to use monitored anesthesia care (MAC). Immediately prior to administration of medications, the patient was re-assessed for adequacy to receive sedatives. The heart rate, respiratory rate, oxygen saturations, blood pressure, adequacy of pulmonary ventilation, and response to care were monitored throughout the procedure. The physical status of the patient was re-assessed after the procedure. After I obtained informed consent, the scope was passed under direct vision. Throughout the procedure, the patient's blood pressure, pulse, and oxygen saturations were monitored continuously. The Colonoscope was introduced through the anus and advanced to the terminal ileum. The colonoscopy was performed without difficulty. The patient tolerated the procedure well. The quality of the bowel preparation was adequate. The terminal ileum, ileocecal valve, appendiceal orifice, and rectum were photographed. Scope In: 2:15:18 PM Scope Withdrawal Time 0 hours 9 minutes 23 seconds Scope Out: 2:34:25 PM Total Procedure Duration Time 0 hours 19 minutes 7 seconds Findings: The perianal and digital rectal examinations were normal. A few small-mouthed diverticula were found in the recto-sigmoid colon and sigmoid colon. Patchy mild inflammation characterized by congestion (edema) and erosions was found in the rectum, in the recto-sigmoid colon, in the sigmoid colon, in the descending colon and in the transverse colon. Biopsies were taken with a cold forceps for histology. Verification of patient identification for the specimen was done. Estimated blood loss was minimal. Patchy mild inflammation was found in the terminal ileum. Biopsies were taken with a cold forceps for histology. Verification of patient identification for the specimen was done. Estimated blood loss was minimal. Impression: - Diverticulosis in the recto-sigmoid colon and in the sigmoid colon. - Patchy mild inflammation was found in the rectum, in the recto-sigmoid colon, in the sigmoid colon, in the descending colon and in the transverse colon secondary to colitis. Biopsied. - Mild inflammation was found in the ileum secondary to ileitis. Biopsied. Recommendation: - Discharge patient to home. - Resume previous diet. - Continue present medications. - Await pathology results. - No repeat colonoscopy due to age. Procedure Code(s): --- Professional --- 90836, Colonoscopy, flexible; with biopsy, single or multiple CPT copyright 2021 [employer]. All rights reserved. The codes documented in this report are preliminary and upon invoice coder review may be revised to meet current compliance requirements. Abdi Choi DO 09/29/2024 2:40:55 PM This report has been signed electronically. Number of Addenda: 0 Note Initiated On: 09/29/2024 2:04 PM 09/29/24 1441 Date Abdirashaad Choi DO Jenkins Signature: Date (if indicated) CC: Dr. Joyce Roe MD; Ra (more content not included)... [facility] MR/POSTOP.ANEon 09-29-2024 MR/POSTOP.[facility] Medical Records Department [address] [facility] [address] Anesthesia Postop Eval I 09/29/241443 MR#: [id number] Acct: [id number] Name: PETER MARIEE Rep #: [id number] : 1935 89 From: Laurent Petty PCP: Dr. Joyce Roe MD Status:REG SD Y Race: C Location: [place] [address] Anesthesia: Postop Eval I Current Vital Signs Temperature: 97.4 F Pulse Rate: 68 Blood Pressure: 118/44 Respiratory Rate: 14 Pulse Ox: 98 Oxygen Delivery Method: Room Air Assessment Airway patent: Yes Spontaneous unlabored respirations: Yes Mental status: Awake and Calm nausea: No Vomiting: No Anesthesia Complication: No Fluid Hydration Crystalloid volume administer (ml): 40 Total IV fluid infused: 40 Progress Note Anesthesia document: Postop Eval 1 completed: Yes 09/29/241443 Date Laurent Jenkins Signature: Date CC: Signed [facility] MR/[id number] 09-29-2024 MR/POSTOPAN2 [facility] Medical Records Department [address] [place] [address] Anesthesia Postop Eval II 09/29/24 1526 MR#: [id number] Acct: [id number] Name: PETER MARIEE Rep #: [id number] : 1935 89 From: Juan Miguel Sherwood MD PCP: Dr. Joyce Roe MD Status:[place] [facility] [place] Race: C Location: EN Anesthesia Postop Eval I Sum Postop Eval Completion status Anesthesia document: Postop Eval 1 completed: Yes Anesthesia Postop Eval I Summary Anesthesia Postop Eval I Summary: Anesthesia Postop Eval I: Assessment Summary Airway patent Yes 09/29/24 14:44 [email or web address] Spontaneous unlabored Yes 09/29/24 14:44 [email or web address] respirations Mental status Awake,Calm 09/29/24 14:44 [email or web address] nausea No 09/29/24 14:44 [email or web address] Vomiting No 09/29/24 14:44 [email or web address] Anesthesia Postop Eval I: Fluid Summary Crystalloid volume administer 40 09/29/24 14:44 [email or web address] (ml) Colloids volume administered ( ml) Blood Product volume administered (ml) Total IV fluid infused 40 09/29/24 14:44 [email or web address] Anesthesia Postop Eval I: Summary Notes Anesthesia Complication No 09/29/24 14:44 [email or web address] Anesthesia Complication Comment: Post-operative progress note Anesthesia: Postop Eval II Evaluation Mental status: Awake Pain Level: 0 nausea: No Vomiting: No Complications Anesthesia Complication: No 09/29/24 1527 Date Juan Miguel Sherwood MD Cosigner Signature: Date CC: Signed Normal [facility] Surgery Specimen Level Roxane 09-29-2024 Surgery Specimen Level IV Patient Age/Sex Location Account Attending Physician PETER MARIEE 89/F EN [id number] Abdi Choi DO Specimen: [id number] Received: 09/29/24 Status: MICHELE Hayden Num: [id number] Spec Type: COLON BX Subm Dr: Abdi Choi DO HEADER OPERATION: Colonoscopy PRE-OP DIAGNOSIS: Colitis TISSUE SUBMITTED: A- Terminal ileum biopsy, B- Random colon biopsy, C- Rectal colon biopsy MICROSCOPIC DIAGNOSIS A. Terminal ileum, biopsy: Focal acute enteritis. B. Colon, random biopsy: Focal acute colitis. See comment. C. Rectal biopsy: Focal acute colitis. See comment. SJ.mr 10/03/2024 COMMENT A. Focal cryptitis is noted. Crypt abscesses or granulomas are not seen. B, C. Focal ulceration and cryptitis are noted. Crypt abscesses or granulomas are not seen. Correlation with clinical, endoscopic findings and appropriate follow up are necessary. MICROSCOPIC DESCRIPTION Slides are reviewed. GROSS DESCRIPTION A. Received in fixative is one container labeled with the patient's name and designated Terminal ileum biopsy. The specimen consists of two irregular fragments of light mcdermott soft tissue that in aggregate measure 0.7 x 0.5 x 0.1 cm. The specimen is totally submitted in one cassette. B. Received in fixative is one container labeled with the patient's name and designated "Random colon biopsy." The specimen consists of multiple irregular fragments of light mcdermott soft tissue that in aggregate measure 1.2 x 0.3 x 0.1 cm. The specimen is totally submitted in one cassette. C. Received in fixative is one container labeled with the patient's name and designated "Rectal colon biopsy." The specimen consists of two irregular fragments of light mcdermott soft tissue that in aggregate measure 0.5 x 0.2 x 0.1 cm. The specimen is totally submitted in one cassette. .mr 10/02/2024 TC:2 [facility]:[id number] Patient Age/Sex Location Account Attending Physician PETER MARIEE 89/F EN [id number] Abdi Choi DO Signed (signature on file) Dr. Pillo Castano MD 10/03/24 1303 Normal [facility] Comment on above: Performed By: #### P SUIV #### [facility] Laboratory [address] [place], [address] MR/PATStephanie 09-26-2024 MR/PAT.MIRIAM [facility] Medical Records Department [address] [place] [address] PAT - Anesthesia 09/26/240 MR#: [id number] Acct: [id number] Name: PETER MARIEE Rep #: [id number] : 1935 89 From: Baljinder Alvarado MD PCP: Dr. Joyce Roe MD Status:PRE [facility] [place] Race: C Location: EN Pre-Assessment Diagnosis/Proposed Procedure Planned Operative Procedure(s): COLONOSCOPY Anesthesia History Anesthesia History - community educator: Anesthesia History - community educator Hx Hospitalization Yes: COLITIS 06/2909/26/24 15:07 Any Problems With Anesthesia No 09/26/24 15:07 Cholinesterase deficiency No 09/26/24 15:07 You/Your Family Experience No 09/26/24 15:07 fever (hyperthermia) with Relationship Recent Exposure to Contagious Disease Does patient have nerve No 09/26/24 15:07 stimulator Patient instructed to have device shut off --Does patient have Pacemaker or ICD? When Was Last Pacemaker Check QUESTION #4 FULL TEXT: You/Your Family Experience fever (hyperthermia) with Anesthesia Last Oral Intake Last Oral intake: Last Oral Intake NPO since Meds taken in AM with sips of water? Meds patient instructed to take am of surgery PONV PONV - community educator: PONV - community educator Female Yes 09/26/24 15:07 HX of Motion Sickness No 09/26/24 15:07 HX of N/V After Surgery No 09/26/24 15:07 Non-Smoker Yes 09/26/24 15:07 Duration of Surgery greater No 09/26/24 15:07 than 60 minutes Number of Risk Factors 2 09/26/24 15:07 PONV Score Moderate Risk 09/26/24 15:07 Height Weight Height Weight: Anesthesia: Height Weight Height 5 ft 1 in 06/24/24 14:25 Respiratory Assessment Respiratory Assessment - community educator: Respiratory Tract Infection Hx - community educator Hx Respiratory Tract Infection No 09/26/24 15:07 STOP Sleep Apnea STOP Sleep Apnea - community educator: STOP Sleep Apnea - community educator Hx Hypertension Yes: CONTROLLED WITH MEDS 09/26/24 15:07 Hx Sleep Apnea No 09/26/24 15:07 CPAP BIPAP Do you snore loudly (louder No 09/26/24 15:07 than talking or can be heard Do you often feel tired/ No 09/26/24 15:07 fatigued/ sleepy during daytime? Has anyone observed you stop No 09/26/24 15:07 breathing during sleep? STOP Results Negative 09/26/24 15:07 QUESTION #5 FULL TEXT : Do you snore loudly (louder than talking or can be heard through closed doors)? Tobacco Use History Tobacco Use History - community educator: Tobacco Use History - community educator Tobacco Use Smoking Status Never smoker 09/26/24 15:07 Hx Tobacco Use No 09/26/24 15:07 Years Smoking Packs Smoked per Day Smoking Cessation Date was within the last 15 years Hx Smoking Cessation Date Hx Smoking Cessation Counseling Hematologic Medial History Hematologic Hx - community educator: Hematologic Medical Hx - assistant manager pt Hx of Blood Transfusion No 09/26/24 15:07 Hx of Transfusion in last 3 No 09/26/24 15:07 Months Date of Last Transfusion (if within last 3 months) Ever experience any problems No 09/26/24 15:07 with transfusion(s)? Specify any problems Hx of Preganancy in last 3 No 09/26/24 15:07 Months Nurse Filling Out Transfusion CPOWERS2 09/26/24 15:07 Questions: Date: 09/26/24 09/26/24 15:07 Time: 15:10 09/26/24 15:07 Patient unable to answer at this time (ie. 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 Normal [facility] C-REACT PROT HIGH SENS(hsCRP ) (32108)Ordered By: Manager Internal on 03-04-2023 CRP High sensitivity method [Mass/Vol] 7.81 mg/L Abnormal 0.00-3.00 [facility]; [facility] Work Phone: Sed Rate Erythrocyte ([id number]) Ordered By: Manager Internal on 03-04-2023 ESR (Bld) [Velocity] 11 mm/h Normal 0-40 [facility]; [facility] Work Phone: CALCIFIDIOL ([id number]) VIT D 25 Ordered By: Manager Internal on 12-24-2022 25-hydroxyvitamin D [Mass/Vol] 98.8 ng/mL Normal 30.0-100.0 [facility]; [facility] Work Phone: LIPID PANEL ([id number])Ordered B y: Manager Internal on 12-24-2022 Cholesterol [Mass/Vol] 117 mg/dL Normal 100-199 [facility]; [facility] Work Phone: Cholesterol in HDL [Mass/Vol] 44 mg/dL Normal [facility]; [facility] Work Phone: Triglyceride [Mass/Vol] 93 mg/dL Normal 0-149 [facility]; [facility] Work Phone: LIPID PANEL ([phone]) 18 mg/dL Normal 5-40 [facility]; [facility] Work Phone: LIPID PANEL ([id number]) 55 mg/dL Normal 0-99 [facility]; [facility] Work Phone: LIPID PANEL ([id number]) 1.3 {ratio} Normal 0.0-3.[address] [facility]; [facility] Work Phone: METABOLIC PANEL, COMPREHENSI VE ([id number])Ordered By: Manager Internal on 12-24-2022 Albumin [Mass/Vol] 4.4 g/dL Normal 3.6-4.6 [facility]; [facility] Work Phone: Albumin/Globulin [Mass ratio] 2.1 {ratio} Normal 1.2-2.2 [facility]; [facility] Work Phone: ALP [Catalytic activity/Vol] 81 U/L Normal 44-121 [facility]; [facility] Work Phone: ALT [Catalytic activity/Vol] 16 U/L Normal 0-32 [facility]; [facility] Work Phone: AST [Catalytic activity/Vol] 21 U/L Normal 0-40 [facility]; [facility] Work Phone: Bilirubin [Mass/Vol] 0.4 mg/dL Normal 0.0-1.[address] [facility]; [facility] Work Phone: Calcium [Mass/Vol] 9.9 mg/dL Normal 8.7-10.3 [facility]; [facility] Work Phone: Chloride [Moles/Vol] 104 mmol/L Normal 96-[address] [facility]; [facility] Work Phone: CO2 [Moles/Vol] 24 mmol/L Normal 20-29 [facility]; [facility] Work Phone: Creatinine [Mass/Vol] 1.30 mg/dL Abnormal 0.57-1.00 [facility]; [facility] Work Phone: Globulin (S) [Mass/Vol] 2.1 g/dL Normal 1.5-4.5 [facility]; [facility] Work Phone: Glucose [Mass/Vol] 101 mg/dL Abnormal 70-99 [facility]; [facility] Work Phone: Potassium [Moles/Vol] 4.3 mmol/L Normal 3.5-5.2 [facility]; [facility] Work Phone: Protein [Mass/Vol] 6.5 g/dL Normal 6.0-8.5 [facility]; [facility] Work Phone: Sodium [Moles/Vol] 143 mmol/L Normal 134-144 [facility]; [facility] Work Phone: Urea nitrogen [Mass/Vol] 24 mg/dL Normal 8-27 [facility]; [facility] Work Phone: Urea nitrogen/Creatinine [Mass ratio] 18 mg/mg Normal 12-28 [facility]; [facility] Work Phone: METABOLIC PANEL, COMPREHENSIVE ([id number]) 40 mL/min/1.73 Abnormal [facility]; [facility] Work Phone: MICROALBUMINOrdered By: Syst em Cloth Finisher on 12-24-2022 Albumin DL <= 20 mg/L (U) [Mass/Vol] 3.7 ug/mL Normal [facility]; [facility] Work Phone: Albumin/Creatinine (U) [Mass ratio] 4 {mg/g_creat} Normal 0-29 [facility]; [facility] Work Phone: Creatinine (U) [Mass/Vol] 97.8 mg/dL Normal [facility]; [facility] Work Phone: URINALYSIS, W/ MICRO ([id number]) Ordered By: Manager Internal on 12-24-2022 Appearance (U) Clear Normal [facility]; [facility] Work Phone: Bilirubin Ql (U) Negative Normal Comprehe ns[facility]; [facility] Work Phone: Color (U) Yellow Normal [facility]; [facility] Work Phone: Glucose Ql (U) Negative Normal [facility]; [facility] Work Phone: Hemoglobin Ql (U) Negative Normal Compreh ens[facility]; [facility] Work Phone: Ketones Ql (U) Negative Normal [facility]; [facility] Work Phone: Leukocyte esterase Test strip Ql (U) 3+ Abnormal [facility]; [facility] Work Phone: Microscopic observation LM Nom (Urine sed) See below: Normal [facility]; [facility] Work Phone: Nitrite Ql (U) Negative Normal [facility]; [facility] Work Phone: pH (U) 5.5 [pH] Normal 5.0-7.5 [facility]; [facility] Work Phone: Protein Ql (U) Negative Normal [facility]; [facility] Work Phone: Specific gravity (U) [Rel density] 1.015 1 Normal 1.005-1.03 0 [facility]; [facility] Work Phone: Urobilinogen (U) [Mass/Vol] 0.2 mg/dL Normal 0.2-1.0 [facility]; [facility] Work Phone: CBC & PLATELETS (AUTO) ([phone])Ordered By: Manager Internal on 06-16-2022 Erythrocyte distribution width (RBC) [Ratio] 13.7 % Normal 11.7-15.4 [facility]; [facility] Work Phone: Hematocrit (Bld) [Volume fraction] 44.7 % Normal 34.0-46.6 [facility]; [facility] Work Phone: Hemoglobin (Bld) [Mass/Vol] 14.3 g/dL Normal 11.1-15.9 [facility]; [facility] Work Phone: MCH (RBC) [Entitic mass] 28.0 pg Normal 26.6-33.0 [facility]; [facility] Work Phone: MCHC (RBC) [Mass/Vol] 32.0 g/dL Normal 31.5-35.7 [facility]; [facility] Work Phone: MCV (RBC) [Entitic vol] 88 fL Normal 79-97 [facility]; [facility] Work Phone: Platelets (Bld) [#/Vol] 202 10*3/uL Normal 150-450 [facility]; [facility] Work Phone: RBC (Bld) [#/Vol] 5.11 10*6/uL Normal 3.77-5.28 [facility] ehensive [facility]; [facility] Work Phone: WBC (Bld) [#/Vol] 9.0 10*3/uL Normal 3.4-10.8 [facility]; [facility] Work Phone: METABOLIC PANEL, COMPREHENSI VE ([id number])Ordered By: Manager Internal on 06-16-2022 Albumin [Mass/Vol] 4.7 g/dL Abnormal 3.6-4.6 [facility]; [facility] Work Phone: Albumin/Globulin [Mass ratio] 2.4 {ratio} Abnormal 1.2-2.2 [facility]; [facility] Work Phone: ALP [Catalytic activity/Vol] 83 U/L Normal 44-121 [facility]; [facility] Work Phone: ALT [Catalytic activity/Vol] 17 U/L Normal 0-32 [facility]; [facility] Work Phone: AST [Catalytic activity/Vol] 23 U/L Normal 0-40 [facility]; [facility] Work Phone: Bilirubin [Mass/Vol] 0.3 mg/dL [facility]; [facility] Work Phone: Calcium [Mass/Vol] 9.7 mg/dL Normal 8.7-10.3 [facility]; [facility] Work Phone: Chloride [Moles/Vol] 106 mmol/L Normal 96-[address] [facility]; [facility] Work Phone: CO2 [Moles/Vol] 25 mmol/L Normal 20-29 [facility]; [facility] Work Phone: Creatinine [Mass/Vol] 1.37 mg/dL Abnormal 0.57-1.00 [facility]; [facility] Work Phone: Globulin (S) [Mass/Vol] 2.0 g/dL Normal 1.5-4.5 [facility]; [facility] Work Phone: Glucose [Mass/Vol] 91 mg/dL Normal 70-99 [facility]; [facility] Work Phone: Potassium [Moles/Vol] 4.6 mmol/L Normal 3.5-5.2 [facility]; [facility] Work Phone: Protein [Mass/Vol] 6.7 g/dL Normal 6.0-8.5 [facility]; [facility] Work Phone: Sodium [Moles/Vol] 145 mmol/L Abnormal 134-144 [facility]; [facility] Work Phone: Urea nitrogen [Mass/Vol] 19 mg/dL Normal 8-27 [facility]; [facility] Work Phone: Urea nitrogen/Creatinine [Mass ratio] 14 mg/mg Normal 12-28 [facility]; [facility] Work Phone: METABOLIC PANEL, COMPREHENSIVE ([id number]) 38 mL/min/1.73 Abnormal [facility]; [facility] Work Phone: CALCIFIDIOL ([id number]) VIT D 25 Ordered By: Manager Internal on 04-28-2022 25-hydroxyvitamin D [Mass/Vol] 65.4 ng/mL Normal 30.0-100.0 [facility] [facility]; [facility] Work Phone: CBC with auto diff ([id number])Or dered By: Manager Internal on 04-28-2022 Basophils (Bld) [#/Vol] 0.1 10*3/uL Normal 0.0-0.2 [facility]; [facility] Work Phone: Basophils/100 WBC (Bld) 1 % Normal [facility]; [facility] Work Phone: Eosinophils (Bld) [#/Vol] 0.2 10*3/uL Normal 0.0-0.4 [facility]; [facility] Work Phone: Eosinophils/100 WBC (Bld) 2 % Normal [facility]; [facility] Work Phone: Erythrocyte distribution width (RBC) [Ratio] 13.4 % Normal 11.7-15.4 [facility]; [facility] Work Phone: Hematocrit (Bld) [Volume fraction] 41.5 % Normal 34.0-46.6 [facility]; [facility] Work Phone: Hemoglobin (Bld) [Mass/Vol] 13.3 g/dL Normal 11.1-15.9 [facility]; [facility] Work Phone: Immature granulocytes (Bld) [#/Vol] 0.0 10*3/uL Normal 0.0-0.1 [facility]; [facility] Work Phone: Immature granulocytes/100 WBC (Bld) 0 % Normal [facility]; [facility] Work Phone: Lymphocytes (Bld) [#/Vol] 1.2 10*3/uL Normal 0.7-3.1 [facility]; [facility] Work Phone: Lymphocytes/100 WBC (Bld) 13 % Normal [facility]; [facility] Work Phone: MCH (RBC) [Entitic mass] 27.3 pg Normal 26.6-33.0 [facility]; [facility] Work Phone: MCHC (RBC) [Mass/Vol] 32.0 g/dL Normal 31.5-35.7 [facility]; [facility] Work Phone: MCV (RBC) [Entitic vol] 85 fL Normal 79-97 [facility]; [facility] Work Phone: Monocytes (Bld) [#/Vol] 0.9 10*3/uL Normal 0.1-0.9 [facility]; [facility] Work Phone: Monocytes/100 WBC (Bld) 10 % Normal [facility]; [facility] Work Phone: Neutrophils (Bld) [#/Vol] 6.7 10*3/uL Normal 1.4-7.0 [facility]; [facility] Work Phone: Neutrophils/100 WBC (Bld) 74 % Normal [facility]; [facility] Work Phone: Platelets (Bld) [#/Vol] 236 10*3/uL Normal 150-450 [facility]; [facility] Work Phone: RBC (Bld) [#/Vol] 4.87 10*6/uL Normal 3.77-5.28 Compr ehensive Internal Medicine; [facility] Work Phone: WBC (Bld) [#/Vol] 9.1 10*3/uL Normal 3.4-10.8 Compre hensive Internal Medicine; [facility] Work Phone: Homocysteine, Plasma ([id number]) Ordered By: Manager Internal on 04-28-2022 Homocysteine [Moles/Vol] 10.7 umol/L Normal 0.0-21.3 [facility]; [facility] Work Phone: LIPID PANEL ([id number])Ordered B y: Manager Internal on 04-28-2022 Cholesterol [Mass/Vol] 114 mg/dL Normal 100-199 [facility]; [facility] Work Phone: Cholesterol in HDL [Mass/Vol] 39 mg/dL Abnormal [facility]; [facility] Work Phone: Triglyceride [Mass/Vol] 118 mg/dL Normal 0-149 [facility]; [facility] Work Phone: LIPID PANEL ([id number]) 21 mg/dL Normal 5-40 Compr ensive [facility] Medicine; [facility] Work Phone: LIPID PANEL ([id number]) 54 mg/dL Normal 0-99 [facility] Internal Medicine; [facility] Work Phone: LIPID PANEL ([id number]) 1.4 {ratio} Normal 0.0-3.2 Comp [facility] Internal Medicine; [facility] Work Phone: METABOLIC PANEL, COMPREHENSI VE ([id number])Ordered By: Manager Internal on 04-28-2022 Albumin [Mass/Vol] 4.2 g/dL Normal 3.6-4.6 [facility]; [facility] Work Phone: Albumin/Globulin [Mass ratio] 1.8 {ratio} Normal 1.2-2.2 [facility]; [facility] Work Phone: ALP [Catalytic activity/Vol] 89 U/L Normal 44-121 [facility]; [facility] Work Phone: ALT [Catalytic activity/Vol] 18 U/L Normal 0-32 [facility]; [facility] Work Phone: AST [Catalytic activity/Vol] 20 U/L Normal 0-40 [facility]; [facility] Work Phone: Bilirubin [Mass/Vol] 0.4 mg/dL Normal 0.0-1.[address] [facility] Internal Medicine; [facility] Internal Medicine Work Phone: Calcium [Mass/Vol] 9.6 mg/dL Normal 8.7-10.3 [facility] Internal Medicine; [facility] Internal Medicine Work Phone: Chloride [Moles/Vol] 103 mmol/L Normal 96-[address] [facility] Internal Medicine; [facility] Internal Medicine Work Phone: CO2 [Moles/Vol] 25 mmol/L Normal 20-29 [facility] Internal Medicine; [facility] Work Phone: Creatinine [Mass/Vol] 1.28 mg/dL Abnormal 0.57-1.00 [facility] Internal Medicine; [facility] Medicine Work Phone: Globulin (S) [Mass/Vol] 2.4 g/dL Normal 1.5-4.5 [facility] Internal Medicine; [facility] Work Phone: Glucose [Mass/Vol] 96 mg/dL Normal 65-99 [facility] Internal Medicine; [facility] Internal Medicine Work Phone: Potassium [Moles/Vol] 4.8 mmol/L Normal 3.5-5.2 [facility] Internal Medicine; [facility] Work Phone: Protein [Mass/Vol] 6.6 g/dL Normal 6.0-8.5 [facility] Internal Medicine; [facility] Internal Medicine Work Phone: Sodium [Moles/Vol] 142 mmol/L Normal 134-144 [facility] Internal Medicine; [facility] Internal Medicine Work Phone: Urea nitrogen [Mass/Vol] 17 mg/dL Normal 8-27 [facility] Medicine; [facility] Work Phone: Urea nitrogen/Creatinine [Mass ratio] 13 mg/mg Normal 12-28 [facility] Internal Medicine; [facility] Medicine Work Phone: METABOLIC PANEL, COMPREHENSIVE ([id number]) 41 mL/min/1.73 Abnormal [facility] Internal Medicine; [facility] Medicine Work Phone: MICROALBUMINOrdered By: Syst em Cloth Finisher on 04-28-2022 Albumin DL <= 20 mg/L (U) [Mass/Vol] 3.2 ug/mL Normal Comprehensiv e Internal Medicine; [facility] Work Phone: Albumin/Creatinine (U) [Mass ratio] 4 {mg/g_creat} Normal 0-29 [facility]; [facility] Work Phone: Creatinine (U) [Mass/Vol] 91.4 mg/dL Normal [facility]; [facility] Internal Medicine Work Phone: URINALYSIS, W/ MICRO ([id number]) Ordered By: Manager Internal on 04-28-2022 Appearance (U) Clear Normal [facility]; [facility] Work Phone: Bilirubin Ql (U) Negative Normal Comprehe nsive Internal Medicine; [facility] Work Phone: Color (U) Yellow Normal [facility]; [facility] Work Phone: Glucose Ql (U) Negative Normal Comprehens [facility]; [facility] Work Phone: Hemoglobin Ql (U) Negative Normal Compreh ensive Internal Medicine; [facility] Work Phone: Ketones Ql (U) Negative Normal Comprehens [facility]; [facility] Work Phone: Leukocyte esterase Test strip Ql (U) Trace Abnormal [facility]; [facility] Work Phone: Microscopic observation LM Nom (Urine sed) See below: Normal [facility]; [facility] Work Phone: Nitrite Ql (U) Negative Normal Comprehens [facility]; [facility] Work Phone: pH (U) 7.0 [pH] Normal 5.0-7.5 [facility]; [facility] Work Phone: Protein Ql (U) Negative Normal Comprehens [facility]; [facility] Work Phone: Specific gravity (U) [Rel density] 1.013 1 Normal 1.005-1.03 0 [facility]; [facility] Work Phone: Urobilinogen (U) [Mass/Vol] 0.2 mg/dL Normal 0.2-1.0 [facility]; [facility] Work Phone: METABOLIC PANEL, BASIC ([id number])Ordered By: Manager Internal on 03-04-2022 Calcium [Mass/Vol] 9.6 mg/dL Normal 8.7-10.3 [facility] Internal Medicine; [facility] Work Phone: Chloride [Moles/Vol] 105 mmol/L Normal 96-106 Comp rehensive Internal Medicine; [facility] Work Phone: CO2 [Moles/Vol] 25 mmol/L Normal 20-29 [facility] Internal Medicine; [facility] Work Phone: Creatinine [Mass/Vol] 1.25 mg/dL Abnormal 0.57-1.00 [facility] Internal Medicine; [facility] Work Phone: Glucose [Mass/Vol] 101 mg/dL Abnormal 65-99 [facility] Internal Medicine; [facility] Work Phone: Potassium [Moles/Vol] 4.0 mmol/L Normal 3.5-5.2 [facility]; [facility] Work Phone: Sodium [Moles/Vol] 143 mmol/L Normal 134-144 [facility] Internal Medicine; [facility] Work Phone: Urea nitrogen [Mass/Vol] 18 mg/dL Normal 8-27 [facility] Medicine; [facility] Work Phone: Urea nitrogen/Creatinine [Mass ratio] 14 mg/mg Normal 12-28 [facility] Internal Medicine; [facility] Work Phone: METABOLIC PANEL, BASIC ([id number]) 43 mL/min/1.73 Abnormal [facility]; [facility] Work Phone: Metabolic Panel, Basic ([phone] [id number])Ordered By: Manager Internal on 12-19-2021 Calcium [Mass/Vol] 10.1 mg/dL Normal 8.7-10.3 [facility] Internal Medicine; [facility] Work Phone: Chloride [Moles/Vol] 103 mmol/L Normal 96-106 Comp rehensive Internal Medicine; [facility] Work Phone: CO2 [Moles/Vol] 24 mmol/L Normal 20-29 [facility]; [facility] Work Phone: Creatinine [Mass/Vol] 1.37 mg/dL Abnormal 0.57-1.00 [facility]; [facility] Work Phone: Glucose [Mass/Vol] 102 mg/dL Abnormal 65-99 [facility] Internal Medicine; [facility] Work Phone: Potassium [Moles/Vol] 4.1 mmol/L Normal 3.5-5.2 [facility]; [facility] Work Phone: Sodium [Moles/Vol] 146 mmol/L Abnormal 134-144 [facility] Internal Medicine; [facility] Work Phone: Urea nitrogen [Mass/Vol] 20 mg/dL Normal 8-27 [facility]; [facility] Work Phone: Urea nitrogen/Creatinine [Mass ratio] 15 mg/mg Normal 12-28 [facility]; [facility] Work Phone: Metabolic Panel, Basic ([id number]) 38 mL/min/1.73 Abnormal [facility]; [facility] Work Phone: Methymalonic Acid, Serum ([phone])Ordered By: Manager Internal on 12-19-2021 Methylmalonate [Moles/Vol] 282 nmol/L Normal 0-378 [facility]; [facility] Work Phone: Vitamin B-12 (cyanocobalamin ) ([id number])Ordered By: Manager Internal on 12-19-2021 Cobalamin (Vitamin B12) [Mass/Vol] 767 pg/mL Normal 232-1245 [facility]; [facility] Work Phone: IGA/IGD/IGG/IGM-EACH ([id number]) Ordered By: Manager Internal on 06-17-2021 IgA [Mass/Vol] 146 mg/dL Normal 64-422 [facility]; [facility] Work Phone: IgE Qn 7 {IU/mL} Normal 6-495 [facility]; [facility] Work Phone: IgG [Mass/Vol] 541 mg/dL Abnormal 586-1602 [facility]; [facility] Work Phone: IgM [Mass/Vol] 255 mg/dL Abnormal 26-217 [facility]; [facility] Work Phone: CBC WITH MANUAL DIFF ([id number]) Ordered By: Manager Internal on 06-03-2021 Basophils (Bld) [#/Vol] 0.1 10*3/uL Normal 0.0-0.2 [facility]; [facility] Work Phone: Basophils/100 WBC (Bld) 1 % Normal [facility]; [facility] Work Phone: Eosinophils (Bld) [#/Vol] 0.1 10*3/uL Normal 0.0-0.4 [facility]; [facility] Work Phone: Eosinophils/100 WBC (Bld) 2 % Normal [facility]; [facility] Work Phone: Erythrocyte distribution width (RBC) [Ratio] 13.8 % Normal 11.7-15.4 [facility]; [facility] Work Phone: Hematocrit (Bld) [Volume fraction] 43.7 % Normal 34.0-46.6 [facility]; [facility] Work Phone: Hemoglobin (Bld) [Mass/Vol] 14.5 g/dL Normal 11.1-15.9 [facility]; [facility] Work Phone: Immature granulocytes (Bld) [#/Vol] 0.0 10*3/uL Normal 0.0-0.1 [facility]; [facility] Work Phone: Immature granulocytes/100 WBC (Bld) 0 % Normal [facility]; [facility] Work Phone: Lymphocytes (Bld) [#/Vol] 1.4 10*3/uL Normal 0.7-3.1 [facility]; [facility] Work Phone: Lymphocytes/100 WBC (Bld) 17 % Normal [facility]; [facility] Work Phone: MCH (RBC) [Entitic mass] 29.2 pg Normal 26.6-33.0 [facility]; [facility] Work Phone: MCHC (RBC) [Mass/Vol] 33.2 g/dL Normal 31.5-35.7 [facility]; [facility] Work Phone: MCV (RBC) [Entitic vol] 88 fL Normal 79-97 [facility]; [facility] Work Phone: Monocytes (Bld) [#/Vol] 0.7 10*3/uL Normal 0.1-0.9 [facility]; [facility] Work Phone: Monocytes/100 WBC (Bld) 8 % Normal [facility]; [facility] Work Phone: Neutrophils (Bld) [#/Vol] 6.2 10*3/uL Normal 1.4-7.0 [facility]; [facility] Work Phone: Neutrophils/100 WBC (Bld) 72 % Normal [facility]; [facility] Work Phone: Platelets (Bld) [#/Vol] 226 10*3/uL Normal 150-450 [facility]; [facility] Work Phone: RBC (Bld) [#/Vol] 4.97 10*6/uL Normal 3.77-5.28 Compr ehensive Internal Medicine; [facility] Work Phone: WBC (Bld) [#/Vol] 8.5 10*3/uL Normal 3.4-10.8 Compre hensive Internal Medicine; [facility] Work Phone: Homocysteine, Plasma ([id number]) Ordered By: Manager Internal on 06-03-2021 Homocysteine [Moles/Vol] 14.0 umol/L Normal 0.0-21.3 [facility]; [facility] Work Phone: MICROALBUMINOrdered By: Syst em Cloth Finisher on 06-03-2021 Albumin DL <= 20 mg/L (U) [Mass/Vol] 4.0 ug/mL Normal Comprehensiv e Internal Medicine; [facility] Internal Medicine Work Phone: Albumin/Creatinine (U) [Mass ratio] 5 {mg/g_creat} Normal 0-29 [facility] Internal Medicine; [facility] Medicine Work Phone: Creatinine (U) [Mass/Vol] 86.8 mg/dL Normal [facility] Internal Medicine; [facility] Medicine Work Phone: NMR Profile ([id number])Ordered B y: Manager Internal on 06-03-2021 Lipoprotein.alpha [Moles/Vol] 38.9 umol/L Normal [facility] Internal Medicine; [facility] Medicine Work Phone: Lipoprotein.beta.sub particle [Entitic length] 20.3 nm Abnormal [facility] Internal Medicine; [facility] Work Phone: Lipoprotein.beta.sub particle [Moles/Vol] 639 nmol/L Normal Comprehensi ve Internal Medicine; [facility] Medicine Work Phone: Lipoprotein.beta.sub particle.small [Moles/Vol] 309 nmol/L Normal [facility] Internal Medicine; [facility] Medicine Work Phone: NMR Profile ([id number]) 58 mg/dL Normal 0-99 [facility] ehensive Internal Medicine; [facility] Internal Medicine Work Phone: NMR Profile ([id number]) 50 mg/dL Normal [facility] Internal Medicine; [facility] Internal Medicine Work Phone: NMR Profile ([id number]) 129 mg/dL Normal 0-149 [facility]; [facility] Work Phone: NMR Profile ([id number]) 131 mg/dL Normal 100-199 [facility]; [facility] Medicine Work Phone: SARS-CoV-2 Semi-Quantitative Total Antibody, Patrick ([id number])Ordered By: Manager Internal on 06-03-2021 SARS-CoV-2 Semi-Quantitative Total Antibody, Patrick ([id number]) 110.5 U/mL Normal [facility] Internal Medicine; [facility] Medicine Work Phone: SARS-CoV-2 Semi-Quantitative Total Antibody, Patrick ([id number]) Positive Normal [facility]; [facility] Work Phone: URINALYSIS ([id number])Ordered By : Manager Internal on 06-03-2021 Appearance (U) Clear Normal [facility]; [facility] Work Phone: Bilirubin Ql (U) Negative Normal Comprehe nsive Internal Medicine; [facility] Work Phone: Color (U) Yellow Normal [facility]; [facility] Work Phone: Glucose Ql (U) Negative Normal Comprehens [facility]; [facility] Work Phone: Hemoglobin Ql (U) Negative Normal Compreh ensive Internal Medicine; [facility] Work Phone: Ketones Ql (U) Negative Normal Comprehens [facility]; [facility] Work Phone: Leukocyte esterase Test strip Ql (U) Trace Abnormal [facility]; [facility] Work Phone: Microscopic observation LM Nom (Urine sed) See below: Normal [facility]; [facility] Work Phone: Nitrite Ql (U) Negative Normal Comprehens [facility]; [facility] Work Phone: pH (U) 6.5 [pH] Normal 5.0-7.5 [facility]; [facility] Work Phone: Protein Ql (U) Negative Normal Comprehens [facility]; [facility] Work Phone: Specific gravity (U) [Rel density] 1.014 1 Normal 1.005-1.03 0 [facility]; [facility] Work Phone: Urobilinogen (U) [Mass/Vol] 0.2 mg/dL Normal 0.2-1.0 [facility]; [facility] Work Phone: HgA1C , Office ([id number])Ordere d By: Joyce Roe on 01-17-2021 HbA1c (Bld) [Mass fraction] 5.7 % Normal 4.6 - 7.1 [facility]; [facility] Work Phone: Homocysteine, Plasma ([id number]) Ordered By: Manager Internal on 06-28-2020 Homocysteine [Moles/Vol] 13.3 umol/L Normal 0.0-21.3 [facility] Work Phone: Comment on above: PATIENT NOT FASTINGP ERFORMED BY: CLARE COGEON [id number] [facility] [place] [id number] VITAMIN B12 AND FOLATES ([id number])Ordered By: Manager Internal on 06-28-2020 Cobalamin (Vitamin B12) [Mass/Vol] 742 pg/mL Normal 232-1245 [facility] Work Phone: Comment on above: PATIENT NOT FASTINGP ERFORMED BY: [employer] [place] [place] [id number] Folate [Mass/Vol] ng/mL Normal Compreh ensive Internal Medicine Work Phone: Comment on above: A serum folate aron ntration of less than 3.1 ng/mL isconsidered to represent clinical deficiency. PATIENT NOT FASTINGP ERFORMED BY: [employer] [facility] [place] [id number] HgA1C , Office ([id number])Ordere d By: Joyce Roe on 01-30-2020 HbA1c (Bld) [Mass fraction] 5.8 % Normal 4.6 - 7.1 [facility] Work Phone: C-REACT PROT HIGH SENS(hsCRP ) ([id number])Ordered By: Manager Internal on 01-12-2020 CRP High sensitivity method [Mass/Vol] 6.22 mg/L Abnormal 0.00-3.00 [facility] Work Phone: Comment on above: Relative Risk for Fu ture Cardiovascular Event Low <1.00 Average 1.00 - 3.00 High >3.00 PATIENT WAS FASTINGP ERFORMED BY: [employer] Mnloir[address] RoadDublin [place] [id number]; elevated in the past has fu 5-26 DB has ankle inflammation CBC WITH MANUAL DIFF ([id number]) Ordered By: Manager Internal on 01-12-2020 Basophils (Bld) [#/Vol] 0.1 {x10E3/uL} Normal 0.0-0.2 [facility] Work Phone: Comment on above: PATIENT NOT FASTINGP ERFORMED BY: CLARE [facility] Mohmhl[address] [facility] [place] [id number] Basophils (Bld) [#/Vol] 0.1 10*3/uL Normal 0.0-0.2 [facility]; [facility] Work Phone: Basophils/100 WBC (Bld) 1 % Normal [facility] Work Phone: Comment on above: PATIENT NOT FASTINGP ERFORMED BY: LabCoTrenton Psychiatric HospitalUowjpb4911 [facility] [id number] Eosinophils (Bld) [#/Vol] 0.2 {x10E3/uL} Normal 0.0-0.4 [facility] Work Phone: Comment on above: PATIENT NOT FASTINGP ERFORMED BY: [facility]Core[facility]6[address] [facility] [id number] Eosinophils (Bld) [#/Vol] 0.2 10*3/uL Normal 0.0-0.4 [facility]; [facility] Work Phone: Eosinophils/100 WBC (Bld) 3 % Normal [facility] Work Phone: Comment on above: PATIENT NOT FASTINGP ERFORMED BY: LabCoTrenton Psychiatric HospitalCdtbua8764 [facility] [id number] Erythrocyte distribution width (RBC) [Ratio] 13.5 % Normal 11.7-15.4 [facility] Work Phone: Comment on above: PATIENT NOT FASTINGP ERFORMED BY: [facility] [id number] [facility] [id number] Hematocrit (Bld) [Volume fraction] 43.4 % Normal 34.0-46.6 [facility] Work Phone: Comment on above: PATIENT NOT FASTINGP ERFORMED BY: LabCo Pdkiag4481 [facility] [id number] Hemoglobin (Bld) [Mass/Vol] 14.1 g/dL Normal 11.1-15.9 [facility] Work Phone: Comment on above: PATIENT NOT FASTINGP ERFORMED BY: CLARE [place] Holloway6370 [facility] [id number] Immature granulocytes (Bld) [#/Vol] 0.0 {x10E3/uL} Normal 0.0-0.1 [facility] Work Phone: Comment on above: PATIENT NOT FASTINGP ERFORMED BY: CLARE Diandra Prfaag3374 [facility] [id number] Immature granulocytes (Bld) [#/Vol] 0.0 10*3/uL Normal 0.0-0.1 [facility]; [facility] Work Phone: Immature granulocytes/100 WBC (Bld) 0 % Normal [facility] Work Phone: Comment on above: PATIENT NOT FASTINGP ERFORMED BY: CLARE [place] Ixflcl4606 [facility] [id number] Lymphocytes (Bld) [#/Vol] 1.1 {x10E3/uL} Normal 0.7-3.1 [facility] Work Phone: Comment on above: PATIENT NOT FASTINGP ERFORMED BY: CLARE [place] Holloway6370 [facility] [id number] Lymphocytes (Bld) [#/Vol] 1.1 10*3/uL Normal 0.7-3.1 [facility]; [facility] Work Phone: Lymphocytes/100 WBC (Bld) 17 % Normal [facility] Work Phone: Comment on above: PATIENT NOT FASTINGP ERFORMED BY: CLARE [facility] [id number] [facility] [id number] MCH (RBC) [Entitic mass] 28.5 pg Normal 26.6-33.0 [facility] Work Phone: Comment on above: PATIENT NOT FASTINGP ERFORMED BY: CLARE LabCox South [id number] [facility] [id number] MCHC (RBC) [Mass/Vol] 32.5 g/dL Normal 31.5-35.7 [facility] Work Phone: Comment on above: PATIENT NOT FASTINGP ERFORMED BY: CLARE Holloway6370 [facility] [id number] MCV (RBC) [Entitic vol] 88 fL Normal 79-97 [facility] Work Phone: Comment on above: PATIENT NOT FASTINGP ERFORMED BY: CLARE Webster [facility] [id number] Monocytes (Bld) [#/Vol] 0.6 {x10E3/uL} Normal 0.1-0.9 [facility] Work Phone: Comment on above: PATIENT NOT FASTINGP ERFORMED BY: CLARE Holloway6370 [facility] [id number] Monocytes (Bld) [#/Vol] 0.6 10*3/uL Normal 0.1-0.9 [facility]; [facility] Work Phone: Monocytes/100 WBC (Bld) 9 % Normal [facility] Work Phone: Comment on above: PATIENT NOT FASTINGP ERFORMED BY: CLARE Holloway6370 [facility] [id number] Neutrophils (Bld) [#/Vol] 4.6 {x10E3/uL} Normal 1.4-7.0 [facility] Work Phone: Comment on above: PATIENT NOT FASTINGP ERFORMED BY: CLARE Chanellin6370 [facility] [id number] Neutrophils (Bld) [#/Vol] 4.6 10*3/uL Normal 1.4-7.0 [facility]; [facility] Work Phone: Neutrophils/100 WBC (Bld) 70 % Normal [facility] Work Phone: Comment on above: PATIENT NOT FASTINGP ERFORMED BY: CLARE LabDarline Jdjpsm5047 [facility] [place] [id number] Platelets (Bld) [#/Vol] 203 {x10E3/uL} Normal 150-450 [facility] Work Phone: Comment on above: PATIENT NOT FASTINGP ERFORMED BY: CLARE Holloway6370 [facility] [id number] Platelets (Bld) [#/Vol] 203 10*3/uL Normal 150-450 [facility]; [facility] Work Phone: RBC (Bld) [#/Vol] 4.94 {x10E6/uL} Normal 3.77-5.28 [facility] Work Phone: Comment on above: PATIENT NOT FASTINGP ERFORMED BY: CLARE Holloway6370 [facility] [id number] RBC (Bld) [#/Vol] 4.94 10*6/uL Normal 3.77-5.28 [facility]; [facility] Work Phone: WBC (Bld) [#/Vol] 6.6 {x10E3/uL} Normal 3.4-10.8 [facility] Work Phone: Comment on above: PATIENT NOT FASTINGP ERFORMED BY: CLARE Chanellin6370 [facility] [id number] WBC (Bld) [#/Vol] 6.6 10*3/uL Normal 3.4-10.8 [facility] Internal Medicine; [facility] Work Phone: LIPID PANEL ([id number])Ordered B y: Manager Internal on 01-12-2020 Cholesterol [Mass/Vol] 125 mg/dL Normal 100-199 [facility] Work Phone: Comment on above: PATIENT WAS FASTINGP ERFORMED BY: CLARE Holloway6370 [facility] [id number] Cholesterol in HDL [Mass/Vol] 39 mg/dL Abnormal [facility] Work Phone: Comment on above: PATIENT WAS FASTINGP ERFORMED BY: CLARE Holloway6370 [facility] [id number] Cholesterol in LDL [Mass/Vol] 56 mg/dL Normal 0-99 [facility] Work Phone: Comment on above: PATIENT WAS FASTINGP ERFORMED BY: CLARE ChuyYohana ChanelEwllzi1201 [facility] [id number] Cholesterol in LDL/Cholesterol in HDL [Mass ratio] 1.4 {ratio} Normal 0.0-3.2 [facility] Work Phone: Comment on above: LDL/HDL Ratio Men Wo men 1/2 Avg.Risk 1.0 1.5 Avg.Risk 3.6 3.2 2X Avg.Risk 6.2 5.0 3X Avg.Risk 8.0 6.1 PATIENT WAS FASTINGP ERFORMED BY: CLARE Chanellin6370 [facility] [id number] Cholesterol in VLDL [Mass/Vol] 30 mg/dL Normal 5-40 [facility] Work Phone: Comment on above: PATIENT WAS FASTINGP ERFORMED BY: CLARE Chanellin6370 [facility] [id number] Triglyceride [Mass/Vol] 149 mg/dL Normal 0-149 [facility] Work Phone: Comment on above: PATIENT WAS FASTINGP ERFORMED BY: CLARE Chanellin6370 [facility] [id number] METABOLIC PANEL, COMPREHENSI VE ([id number])Ordered By: Manager Internal on 01-12-2020 Albumin [Mass/Vol] 4.4 g/dL Normal 3.6-4.6 [facility] Internal Medicine Work Phone: Comment on above: PATIENT WAS FASTINGP ERFORMED BY: CLARE Chanellin6370 [facility] [id number] Information: NURSE DRAW Albumin/Globulin [Mass ratio] 2.2 {ratio} Normal 1.2-2.2 [facility] Work Phone: Comment on above: PATIENT WAS FASTINGP ERFORMED BY: CLARE LabYohana ChanelXfpbsi8909 [facility] [id number] Information: NURSE DRAW ALP [Catalytic activity/Vol] 85 [iU]/L Normal 39-117 [facility] Work Phone: Comment on above: PATIENT WAS FASTINGP ERFORMED BY: CLARE Holloway6370 [facility] [id number] Information: NURSE DRAW ALP [Catalytic activity/Vol] 85 U/L Normal 39-117 [facility]; [facility] Work Phone: ALT [Catalytic activity/Vol] 20 [iU]/L Normal 0-32 [facility] Work Phone: Comment on above: PATIENT WAS FASTINGP ERFORMED BY: CLARE Chanellin6370 [facility] [id number] Information: NURSE DRAW ALT [Catalytic activity/Vol] 20 U/L Normal 0-32 [facility]; [facility] Work Phone: AST [Catalytic activity/Vol] 21 [iU]/L Normal 0-40 [facility] Work Phone: Comment on above: PATIENT WAS FASTINGP ERFORMED BY: CLARE Chanellin6370 [facility] [id number] Information: NURSE DRAW AST [Catalytic activity/Vol] 21 U/L Normal 0-40 [facility]; [facility] Work Phone: Bilirubin [Mass/Vol] 0.4 mg/dL Normal 0.0-1.2 [facility] rehensive Internal Medicine Work Phone: Comment on above: PATIENT WAS FASTINGP ERFORMED BY: CLARE Holloway6370 [facility] [id number] Information: NURSE DRAW Calcium [Mass/Vol] 9.8 mg/dL Normal 8.7-10.3 [facility] Internal Medicine Work Phone: Comment on above: PATIENT WAS FASTINGP ERFORMED BY: CLARE Chanellin6370 [facility] [id number] Information: NURSE DRAW Chloride [Moles/Vol] 103 mmol/L Normal 96-[address] [facility] Work Phone: Comment on above: PATIENT WAS FASTINGP ERFORMED BY: CLARE LabCo Akldsi7404 [facility] [id number] Information: NURSE DRAW CO2 [Moles/Vol] 23 mmol/L Normal 20-29 [facility] Internal Medicine Work Phone: Comment on above: PATIENT WAS FASTINGP ERFORMED BY: [facility] Oviegb1326 [facility] [id number] Information: NURSE DRAW Creatinine [Mass/Vol] 1.16 mg/dL Abnormal 0.57-1.00 [facility] Work Phone: Comment on above: PATIENT WAS FASTINGP ERFORMED BY: LabCo Qvcxef2446 [facility] [id number] Information: NURSE DRAW GFR/1.73 sq M predicted among blacks CKD-EPI (S/P/Bld) [Vol rate/Area] 51 mL/min/1.73 Abnormal [facility] Work Phone: Comment on above: PATIENT WAS FASTINGP ERFORMED BY: [facility] Oszxjh8645 [facility] [id number] Information: NURSE DRAW GFR/1.73 sq M predicted among non-blacks CKD-EPI (S/P/Bld) [Vol rate/Area] 44 mL/min/1.73 Abnormal [facility] Work Phone: Comment on above: PATIENT WAS FASTINGP ERFORMED BY: [facility] Qjhkco3910 [facility] [id number] Information: NURSE DRAW Globulin (S) [Mass/Vol] 2.0 g/dL Normal 1.5-4.5 [facility] Work Phone: Comment on above: PATIENT WAS FASTINGP ERFORMED BY: [facility] Wtmcol0754 [facility] [id number] Information: NURSE DRAW Glucose [Mass/Vol] 104 mg/dL Abnormal 65-99 [facility] Internal Medicine Work Phone: Comment on above: PATIENT WAS FASTINGP ERFORMED BY: [facility] Ahgrhq2819 [facility] [id number] Information: NURSE DRAW Potassium [Moles/Vol] 4.3 mmol/L Normal 3.5-5.2 [facility] Work Phone: Comment on above: PATIENT WAS FASTINGP ERFORMED BY: CLARE Chanellin6370 [facility] [id number] Information: NURSE DRAW Protein [Mass/Vol] 6.4 g/dL Normal 6.0-8.5 [facility] Internal Medicine Work Phone: Comment on above: PATIENT WAS FASTINGP ERFORMED BY: CLARE VeraCox South Anhsdb8829 [facility] [id number] Information: NURSE DRAW Sodium [Moles/Vol] 142 mmol/L Normal 134-144 [facility] Internal Medicine Work Phone: Comment on above: PATIENT WAS FASTINGP ERFORMED BY: CLARE Chanellin6370 [facility] [id number] Information: NURSE DRAW Urea nitrogen [Mass/Vol] 22 mg/dL Normal 8-27 [facility] Work Phone: Comment on above: PATIENT WAS FASTINGP ERFORMED BY: CLARE Chanellin6370 [facility] [id number] Information: NURSE DRAW Urea nitrogen/Creatinine [Mass ratio] 19 mg/mg Normal 12-28 [facility] Work Phone: Comment on above: PATIENT WAS FASTINGP ERFORMED BY: CLARE Chanellin6370 [facility] [id number] Information: NURSE DRAW MICROALBUMINOrdered By: Syst em Cloth Finisher on 01-12-2020 Albumin DL <= 20 mg/L (U) [Mass/Vol] 5.0 ug/mL Normal Comprehens[facility] e [facility] Medicine Work Phone: Comment on above: PATIENT NOT FASTINGP ERFORMED BY: CLARE Chanellin6370 [facility] [id number] Albumin/Creatinine (U) [Mass ratio] 6 {mg/g_creat} Normal 0-29 [facility] Work Phone: Comment on above: Normal: 0 - 29 Moder ately increased: 30 - 300 Severely increased: >300 Please note reference interval change PATIENT NOT FASTINGP ERFORMED BY: [facility]eller[facility] TherapeuticsCorewell [facility]6370 [facility] [id number] Creatinine (U) [Mass/Vol] 89.6 mg/dL Normal [facility] Work Phone: Comment on above: PATIENT NOT FASTINGP ERFORMED BY: [facility]6370 [facility] [id number] SARS-CoV-2 Antibody, IgGOrde red By: Manager Internal on 01-12-2020 SARS-CoV-2 Antibody, IgG Negative Normal [facility] Work Phone: Comment on above: This sample does not contain detectable SARS-CoV-2 IgG antibodies.This negative result does not rule out SARS-CoV-2 infection.Correlation with epidemiologic risk factors and other clinical andlaboratory findings is recommended. Serologic results should not beused as the sole basis to diagnose or exclude recent BLSE-SkF-1taahxmqxa.This assay was performed using the Paz SARS-CoV-2 IgG assay. Test(s) 014972-GZWS- CoV-2 Antibody, IgGhas not been reviewed by the Food and Drug Administration.PATIENT NOT FASTINGPERFORMED BY: [place] [address] [facility] [id number] Information: NURSE DRAW SARS-CoV-2 Antibody, IgG Negative Normal [facility]; [facility] Work Phone: CALCIFIDIOL ([id number]) VIT D 25 Ordered By: Manager Internal on 07-20-2019 25-Hydroxyvitamin D2+25-Hydroxyvitamin D3 [Mass/Vol] 54.6 ng/mL Normal 30.0-100.0 [facility] Work Phone: Comment on above: Vitamin D deficiency has been defined by the [place] ofMedicine and an Endocrine Society practice guideline as alevel of serum 25-OH vitamin D less than 20 ng/mL (1,2).The Endocrine Society went on to further define vitamin Dinsufficiency as a level between 21 and 29 ng/mL (2).1. IOM ([place] of Medicine). 2010. Dietary reference intakes for calcium and D. [place]: The National Academies Press.2. Reji MF, Dionne ESTRADA, Lalo MCKENZIE, et al. Evaluation, treatment, and prevention of vitamin D deficiency: an Endocrine Society clinical practice guideline. JCEM. 2010; 96(7):1911-30. Test(s) 123947-VUD-U ; 251233-GQM-F; 466015-TAD-E; 544734-Uvtgriehayaec; 276648-Pngmgbanojr, Total; 048207-DMT-O (Total);027331-Ahjyo LDL-P; 330762-JTO Size; 734267-KN-TC Scorewas developed and its performance characteristics determinedby COGE[employer]. It has not been cleared or approved by the Foodand Drug Administration.PATIENT WAS FASTINGPERFORMED BY: Foodist [address] [id number] BY: [facility] [id number] CBC WITH MANUAL DIFF ([id number]) Ordered By: Manager Internal on 07-20-2019 Basophils (Bld) [#/Vol] 0.1 {x10E3/uL} Normal 0.0-0.2 [facility] Work Phone: Comment on above: Test(s) 615141-AKA-C ; 284990-VKB-W; 544536-PLN-Q; 076542-Fqsmkitinmfal; 830166-Ixtrsahqxeb, Total; 397915-DCJ-D (Total);013410-Qhiij LDL-P; 470439-UII Size; 489950-LP-DS Scorewas developed and its performance characteristics determinedby COGEON. It has not been cleared or approved by the Foodand Drug Administration.PATIENT WAS FASTINGPERFORMED BY: Foodist [address] [id number] BY: Timeliner70 [facility] [employer] [facility] [id number] Basophils (Bld) [#/Vol] 0.1 10*3/uL Normal 0.0-0.2 [facility]; [facility] Work Phone: Basophils/100 WBC (Bld) 1 % Normal [facility] Work Phone: Comment on above: Test(s) 644254-MMO-G ; 989884-QWP-O; 061107-POQ-A; 969614-Entusshfxwthp; 777704-Eiaebrcutdd, Total; 605972-YQM-Y (Total);116717-Ludot LDL-P; 009819-JUG Size; 834731-RH-YO Scorewas developed and its performance characteristics determinedby COGEON. It has not been cleared or approved by the Foodand Drug Administration.PATIENT WAS FASTINGPERFORMED BY: Foodist [address] [id number] BY: Timeliner70 [facility] [id number] Eosinophils (Bld) [#/Vol] 0.2 {x10E3/uL} Normal 0.0-0.4 [facility] Work Phone: Comment on above: Test(s) 308127-TVM-H ; 462301-XQW-M; 340480-DWP-E; 128112-Kreglojncdrcu; 282211-Byxgfsuoshl, Total; 773990-XNY-B (Total);908297-Pozmu LDL-P; 671778-JLI Size; 832195-HZ-RG Scorewas developed and its performance characteristics determinedby COGEON. It has not been cleared or approved by the Foodand Drug Administration.PATIENT WAS FASTINGPERFORMED BY: Foodist [address] [id number] BY: Rosterbot Abjknp0132 [facility] [id number] Eosinophils (Bld) [#/Vol] 0.2 10*3/uL Normal 0.0-0.4 [facility]; [facility] Work Phone: Eosinophils/100 WBC (Bld) 2 % Normal [facility] Work Phone: Comment on above: Test(s) 553148-YZW-W ; 029987-BOM-P; 585904-VAS-K; 209218-Ikxrabxlotmbu; 173525-Ytybxuxpyfz, Total; 303965-BCA-B (Total);398761-Kfoal LDL-P; 529707-IBV Size; 404130-XV-HK Scorewas developed and its performance characteristics determinedby COGEON. It has not been cleared or approved by the Foodand Drug Administration.PATIENT WAS FASTINGPERFORMED BY: Foodist [address] [id number] BY: OffermaticaTrenton Psychiatric HospitalDkrewt4174 [facility] [id number] Erythrocyte distribution width (RBC) [Ratio] 14.1 % Normal 12.3-15.4 [facility] Work Phone: Comment on above: Test(s) 237804-ZTD-J ; 421613-SKC-D; 743546-YRG-J; 680491-Asafotyiyepoi; 593858-Lgqrdkmkugm, Total; 139546-ADA-E (Total);533918-Upily LDL-P; 504487-DWJ Size; 062857-CC-LF Scorewas developed and its performance characteristics determinedby COGEON. It has not been cleared or approved by the FoodFast Asset Drug Administration.PATIENT WAS FASTINGPERFORMED BY: Foodist [address] [id number] BY: Offermatica Vtmjfb8192 [facility] [id number] Hematocrit (Bld) [Volume fraction] 43.7 % Normal 34.0-46.6 [facility] Work Phone: Comment on above: Test(s) 864102-YBT-K ; 614949-RBD-F; 448245-XQJ-R; 696521-Ldwhrmokeavqk; 811824-Jhzpizvsplk, Total; 242474-JUQ-U (Total);703295-Eoeqz LDL-P; 342628-AJQ Size; 225489-RS-OJ Scorewas developed and its performance characteristics determinedby COGEON. It has not been cleared or approved by the Foodand Drug Administration.PATIENT WAS FASTINGPERFORMED BY: Foodist [address] [id number] BY: [employer]6370 [facility] [id number] Hemoglobin (Bld) [Mass/Vol] 14.3 g/dL Normal 11.1-15.9 [facility] Work Phone: Comment on above: Test(s) 514157-RIK-G ; 160213-AHX-M; 403647-NRA-F; 845307-Pkqefvuonumqu; 917307-Bejkkocbuje, Total; 495199-BXA-Z (Total);720274-Zxeau LDL-P; 604958-LWI Size; 337683-OX-XM Scorewas developed and its performance characteristics determinedby COGEON. It has not been cleared or approved by the Foodand Drug Administration.PATIENT WAS FASTINGPERFORMED BY: Foodist [address] [id number] BY: Timeliner70 [facility] [id number] Immature granulocytes (Bld) [#/Vol] 0.0 {x10E3/uL} Normal 0.0-0.1 [facility] Work Phone: Comment on above: Test(s) 366048-XJG-W ; 950845-IGQ-S; 728605-HRD-V; 995907-Maoylkaufimhe; 718856-Hapoxrxyuom, Total; 887512-FGW-O (Total);944289-Kbtdw LDL-P; 254481-ZSW Size; 263627-BM-IG Scorewas developed and its performance characteristics determinedby COGEON. It has not been cleared or approved by the Foodand Drug Administration.PATIENT WAS FASTINGPERFORMED BY: Foodist [address] [id number] BY: Hacker Schoollin6370 [facility] [id number] Immature granulocytes (Bld) [#/Vol] 0.0 10*3/uL Normal 0.0-0.1 [facility]; [facility] Work Phone: Immature granulocytes/100 WBC (Bld) 0 % Normal [facility] Work Phone: Comment on above: Test(s) 596093-BPX-B ; 299039-MLJ-E; 432661-DLT-K; 347357-Wtoocbgrbgvsj; 960981-Lrizcybaxir, Total; 598998-EYZ-J (Total);823295-Jlmxw LDL-P; 513862-QCV Size; 422953-OL-SE Scorewas developed and its performance characteristics determinedby COGEON. It has not been cleared or approved by the Foodand Drug Administration.PATIENT WAS FASTINGPERFORMED BY: Foodist [address] [id number] BY: Rosterbot Xohzvw1964 [facility] [id number] Lymphocytes (Bld) [#/Vol] 1.2 {x10E3/uL} Normal 0.7-3.1 [facility] Work Phone: Comment on above: Test(s) 518301-FYN-O ; 152683-LZH-E; 287374-KEO-V; 379802-Huvadvvdnbgwn; 398953-Gnwgiwyjueo, Total; 688872-GMZ-L (Total);923721-Zamer LDL-P; 247804-OZX Size; 216258-PB-ZQ Scorewas developed and its performance characteristics determinedby COGEON. It has not been cleared or approved by the Foodand Drug Administration.PATIENT WAS FASTINGPERFORMED BY: COGEON [address] [id number] BY: Rosterbot Vbpjqg9736 [facility] [id number] Lymphocytes (Bld) [#/Vol] 1.2 10*3/uL Normal 0.7-3.1 [facility]; [facility] Work Phone: Lymphocytes/100 WBC (Bld) 16 % Normal [facility] Work Phone: Comment on above: Test(s) 009381-EUU-W ; 885073-GDF-D; 407744-PHS-B; 717755-Avkcgmtdeendy; 479288-Siljsuuhdai, Total; 032741-NGR-K (Total);545006-Gthya LDL-P; 259601-MAB Size; 794458-BI-FJ Scorewas developed and its performance characteristics determinedby COGEON. It has not been cleared or approved by the Foodand Drug Administration.PATIENT WAS FASTINGPERFORMED BY: Offermatica[address] [id number] BY: Offermatica Cupudc1651 [facility] [id number] MCH (RBC) [Entitic mass] 28.3 pg Normal 26.6-33.0 [facility] Work Phone: Comment on above: Test(s) 743174-DOE-X ; 672622-WJM-A; 393475-HBK-I; 167278-Ikwibgifybqfu; 282054-Ojrlckgrtvh, Total; 755196-HQP-M (Total);311308-Gtcea LDL-P; 798343-XBE Size; 732736-TZ-YR Scorewas developed and its performance characteristics determinedby COGEON. It has not been cleared or approved by the Foodand Drug Administration.PATIENT WAS FASTINGPERFORMED BY: Foodist [address] [id number] BY: Proteros biostructures70 [facility] [id number] MCHC (RBC) [Mass/Vol] 32.7 g/dL Normal 31.5-35.7 [facility] Work Phone: Comment on above: Test(s) 039742-GZL-D ; 596242-LPS-T; 647459-XSA-Q; 833082-Myfpoimhaadra; 844125-Gihskoceefy, Total; 599904-JCO-G (Total);449972-Ufqjk LDL-P; 153608-TYT Size; 752984-IE-QR Scorewas developed and its performance characteristics determinedby COGEON. It has not been cleared or approved by the Foodand Drug Administration.PATIENT WAS FASTINGPERFORMED BY: Offermatica[address] [id number] BY: [employer]lin6370 [facility] [id number] MCV (RBC) [Entitic vol] 87 fL Normal 79-97 [facility] Work Phone: Comment on above: Test(s) 089376-GDR-T ; 515213-PAR-T; 562651-YPW-T; 229247-Tesxldgzznqtk; 788148-Tmxwvpqbpsr, Total; 550883-JYK-N (Total);795712-Jttur LDL-P; 065993-TNA Size; 192279-VL-VD Scorewas developed and its performance characteristics determinedby COGEON. It has not been cleared or approved by the Foodand Drug Administration.PATIENT WAS FASTINGPERFORMED BY: HeartThis[address] [id number] BY: Timeliner70 [facility] [id number] Monocytes (Bld) [#/Vol] 0.6 {x10E3/uL} Normal 0.1-0.9 [facility] Work Phone: Comment on above: Test(s) 787854-FPG-T ; 817595-UCI-Y; 464367-BJG-U; 145131-Cvldptflpvijv; 839918-Urqvctxquth, Total; 209669-NEG-V (Total);075075-Qciut LDL-P; 355950-CLT Size; 502344-KH-AT Scorewas developed and its performance characteristics determinedby COGEON. It has not been cleared or approved by the Foodand Drug Administration.PATIENT WAS FASTINGPERFORMED BY: Foodist [address] [id number] BY: Rosterbot Klhdou1809 [facility] [id number] Monocytes (Bld) [#/Vol] 0.6 10*3/uL Normal 0.1-0.9 [facility]; [facility] Work Phone: Monocytes/100 WBC (Bld) 8 % Normal [facility] Work Phone: Comment on above: Test(s) 632262-CFR-I ; 480429-IPC-X; 227226-EUW-G; 314515-Oocyqdaqlzxvl; 565352-Ehkywscopbh, Total; 837351-WVA-Q (Total);101262-Hdsdi LDL-P; 836849-BAC Size; 833807-NK-KJ Scorewas developed and its performance characteristics determinedby COGEON. It has not been cleared or approved by the Foodand Drug Administration.PATIENT WAS FASTINGPERFORMED BY: Offermatica[address] [id number] BY: OffermaticaRichard Ville 6228770 [facility] [id number] Neutrophils (Bld) [#/Vol] 5.7 {x10E3/uL} Normal 1.4-7.0 [facility] Work Phone: Comment on above: Test(s) 275707-ZHK-U ; 934514-RPI-N; 906329-SBV-U; 696134-Orjmklnckdhgi; 779337-Pefrntaokyy, Total; 963930-BJV-A (Total);523855-Pheqn LDL-P; 306573-IUU Size; 308909-RS-TI Scorewas developed and its performance characteristics determinedby COGEON. It has not been cleared or approved by the Foodand Drug Administration.PATIENT WAS FASTINGPERFORMED BY: Offermatica[address] [id number] BY: OffermaticaTrenton Psychiatric HospitalGsedfh9710 [facility] [id number] Neutrophils (Bld) [#/Vol] 5.7 10*3/uL Normal 1.4-7.0 [facility]; [facility] Work Phone: Neutrophils/100 WBC (Bld) 73 % Normal [facility] Work Phone: Comment on above: Test(s) 687779-NCB-Z ; 726416-WFM-A; 081942-IPN-S; 151891-Ldmosyyouvhcn; 391109-Ydsrczmkfly, Total; 154519-DUZ-N (Total);067178-Hzuuk LDL-P; 728985-JLN Size; 248913-XM-AQ Scorewas developed and its performance characteristics determinedby COGEON. It has not been cleared or approved by the Foodand Drug Administration.PATIENT WAS FASTINGPERFORMED BY: HeartThis[address] [id number] BY: [employer]6370 [facility] [id number] Platelets (Bld) [#/Vol] 210 {x10E3/uL} Normal 150-450 [facility] Work Phone: Comment on above: Test(s) 226474-TFD-Q ; 512361-EEN-W; 270820-LTE-L; 001524-Bywbmascksovq; 605740-Gueyxtlmeqb, Total; 493599-OSI-A (Total);635257-Xagem LDL-P; 671157-QMK Size; 754226-GN-LK Scorewas developed and its performance characteristics determinedby COGE[employer]. It has not been cleared or approved by the Foodand Drug Administration.PATIENT WAS FASTINGPERFORMED BY: HeartThis[address] [id number] BY: [employer] AcunoteUNC Health Blue Ridge [id number] Platelets (Bld) [#/Vol] 210 10*3/uL Normal 150-450 [facility]; [facility] Internal Medicine Work Phone: RBC (Bld) [#/Vol] 5.05 {x10E6/uL} Normal 3.77-5.28 [facility] Internal Medicine Work Phone: Comment on above: Test(s) 135639-SEM-F ; 586969-LBO-G; 095932-OJS-T; 254559-Dqstgwaxvjjgf; 601778-Lsatsjwxzea, Total; 181330-TBM-Q (Total);792094-Qdmqh LDL-P; 318021-SOC Size; 997954-PT-OF Scorewas developed and its performance characteristics determinedby COGEON. It has not been cleared or approved by the Foodand Drug Administration.PATIENT WAS FASTINGPERFORMED BY: HeartThis[address] [id number] BY: Revokomblin [place] [id number] RBC (Bld) [#/Vol] 5.05 10*6/uL Normal 3.77-5.28 [facility] Internal Medicine; [facility] Work Phone: WBC (Bld) [#/Vol] 7.8 {x10E3/uL} Normal 3.4-10.8 [facility] Internal Medicine Work Phone: Comment on above: Test(s) 794929-IVH-R ; 000910-SXX-T; 041271-UHL-P; 406453-Lowpxmloxhyft; 939542-Hiktlyufnmm, Total; 505250-OAM-Y (Total);266062-Ifndv LDL-P; 682767-NBX Size; 071913-EZ-VX Scorewas developed and its performance characteristics determinedby COGEON. It has not been cleared or approved by the Foodand Drug Administration.PATIENT WAS FASTINGPERFORMED BY: [employer] [facility] [id number] BY: Rosterbot Efsqeq2782 [facility] [id number] WBC (Bld) [#/Vol] 7.8 10*3/uL Normal 3.4-10.8 [facility] Internal Medicine; [facility] Work Phone: Ferritin ([id number])Ordered By: Manager Internal on 07-20-2019 Ferritin [Mass/Vol] 178 ng/mL Abnormal 15-150 [facility] Internal Medicine Work Phone: Comment on above: Test(s) 419633-HZE-M ; 407451-BLC-V; 025962-EKJ-S; 459658-Bjfotioxqjkhu; 078904-Ypvnjgxmjbj, Total; 564540-UAY-P (Total);891029-Rasoo LDL-P; 026903-XME Size; 977358-UR-WB Scorewas developed and its performance characteristics determinedby COGEON. It has not been cleared or approved by the Foodand Drug Administration.PATIENT WAS FASTINGPERFORMED BY: [employer] [facility] [id number] BY: Timeliner70 [facility]al[facility] [id number]; fu 11-25 DB HGB A1C (53228)Ordered By: S ystem Cloth Finisher on 07-20-2019 HbA1c (Bld) [Mass fraction] 6.0 % Abnormal 4.8-5.6 [facility] Work Phone: Comment on above: . Prediabetes: 5.7 - 6.4 Diabetes: >6.4 Glycemic control for adults with diabetes: <7.0 Test(s) 905846-DGN-Q ; 817468-JQP-G; 833710-EEF-Q; 023602-Hwkvpmxqegyud; 651157-Jrxcemhyfpb, Total; 619172-KTV-F (Total);695368-Cygms LDL-P; 129154-EKL Size; 558211-SN-FI Scorewas developed and its performance characteristics determinedby COGEON. It has not been cleared or approved by the Foodand Drug Administration.PATIENT WAS FASTINGPERFORMED BY: HeartThis[address] [id number] BY: CLARE Hotelbar6370 [facility]alUNC [facility] [id number] Homocysteine, Plasma (78415) Ordered By: Manager Internal on 07-20-2019 Homocysteine [Moles/Vol] 12.9 umol/L Normal 0.0-15.0 [facility] Work Phone: Comment on above: Test(s) 883053-OMB-Y ; 793830-EKB-B; 653506-NCJ-A; 444973-Lacmgpwrbcqqv; 145982-Cjgfwkeehpr, Total; 460488-QJQ-R (Total);179635-Utamv LDL-P; 238092-XLC Size; 047563-LY-ZA Scorewas developed and its performance characteristics determinedby COGEON. It has not been cleared or approved by the Foodand Drug Administration.PATIENT WAS FASTINGPERFORMED BY: HeartThis[address] [id number] BY: [employer] AcunoteUNC Health Blue Ridge [id number] MICROALBUMINOrdered By: Syst em Cloth Finisher on 07-20-2019 Albumin DL <= 20 mg/L (U) [Mass/Vol] 6.4 ug/mL Normal Comprehensiv e Internal Medicine Work Phone: Comment on above: Test(s) 750790-QMC-R ; 617376-KFT-X; 077640-OLK-I; 461937-Ofwehirilxyst; 418597-Kuffmqcghyh, Total; 099201-WIP-J (Total);245786-Aduui LDL-P; 484420-KWI Size; 700231-KH-NX Scorewas developed and its performance characteristics determinedby COGEON. It has not been cleared or approved by the Foodand Drug Administration.PATIENT WAS FASTINGPERFORMED BY: HeartThis[address] [id number] BY: Timeliner70 [facility] [id number] Albumin/Creatinine (U) [Mass ratio] 9.0 {mg/g_creat} Normal 0.0-30.0 [facility] Work Phone: Comment on above: Normal: 0.0 - 30.0 A lbuminuria: 31.0 - 300.0 Clinical albuminuria: >300.0 Test(s) 324172-TMW-W ; 494786-RIN-J; 100760-LFH-K; 768013-Gfthnumultnkx; 821594-Wpjmwdswigs, Total; 885584-SNG-C (Total);749308-Bwntj LDL-P; 844619-ORX Size; 953541-PW-IG Scorewas developed and its performance characteristics determinedby COGEON. It has not been cleared or approved by the Foodand Drug Administration.PATIENT WAS FASTINGPERFORMED BY: HeartThis[address] [id number] BY: Timeliner70 [facility] [id number] Creatinine (U) [Mass/Vol] 70.9 mg/dL Normal [facility] Work Phone: Comment on above: Test(s) 561146-TZX-Y ; 093742-DDR-C; 498310-IOG-R; 208158-Ufmxcjbjrsrfu; 861663-Xvepfbpqibp, Total; 343021-PYD-Z (Total);388916-Drsre LDL-P; 092446-GLE Size; 526345-FM-YT Scorewas developed and its performance characteristics determinedby COGEON. It has not been cleared or approved by the Foodand Drug Administration.PATIENT WAS FASTINGPERFORMED BY: Foodist [address] [id number] BY: Hotelbar6370 [facility] [id number] Metabolic Panel, Comprehensi ve (73971)Ordered By: Manager Internal on 07-20-2019 Albumin [Mass/Vol] 4.4 g/dL Normal 3.5-4.7 [facility] Internal Medicine Work Phone: Comment on above: Test(s) 635157-LIK-S ; 608085-XSY-M; 520992-NAV-R; 407984-Apcxwduoaiaky; 721491-Whgfebixnxw, Total; 766928-TAL-H (Total);551965-Ntdpw LDL-P; 416514-DOG Size; 657764-US-LF Scorewas developed and its performance characteristics determinedby COGEON. It has not been cleared or approved by the Foodand Drug Administration.PATIENT WAS FASTINGPERFORMED BY: Foodist [address] [id number] BY: [employer]6370 [facility] [id number] Albumin/Globulin [Mass ratio] 2.0 {ratio} Normal 1.2-2.2 [facility] Work Phone: Comment on above: Test(s) 440952-RIG-R ; 708205-ZDB-G; 373609-KFU-P; 280562-Xipizaecuparl; 026628-Ojpyrtxikmh, Total; 402931-KYD-Z (Total);731984-Kqrrn LDL-P; 425076-ZIS Size; 347615-LC-IJ Scorewas developed and its performance characteristics determinedby COGEON. It has not been cleared or approved by the Foodand Drug Administration.PATIENT WAS FASTINGPERFORMED BY: Offermatica[address] [id number] BY: OffermaticaRichard Ville 6228770 [facility] [id number] ALP [Catalytic activity/Vol] 80 [iU]/L Normal 39-117 [facility] Work Phone: Comment on above: Test(s) 963942-CVY-P ; 267995-UNX-K; 915608-MYD-P; 735442-Gqddbbjlzdqok; 931071-Dxgucfronaa, Total; 996104-FTV-Y (Total);727986-Uromg LDL-P; 025868-CZS Size; 811122-WQ-ND Scorewas developed and its performance characteristics determinedby COGEON. It has not been cleared or approved by the Foodand Drug Administration.PATIENT WAS FASTINGPERFORMED BY: Offermatica[address] [id number] BY: Offermatica Snrpkp6444 [facility] [id number] ALP [Catalytic activity/Vol] 80 U/L Normal 39-117 [facility]; [facility] Work Phone: ALT [Catalytic activity/Vol] 18 [iU]/L Normal 0-32 [facility] Work Phone: Comment on above: Test(s) 918088-KOJ-J ; 854444-WCF-F; 750452-DMJ-U; 357196-Jwrfutwoulsoj; 708752-Izjsnealesy, Total; 552095-TWS-L (Total);856920-Hjyhn LDL-P; 646376-IGT Size; 556597-SO-MB Scorewas developed and its performance characteristics determinedby COGEON. It has not been cleared or approved by the Foodand Drug Administration.PATIENT WAS FASTINGPERFORMED BY: Offermatica[address] [id number] BY: OffermaticaTrenton Psychiatric HospitalQejpbq3418 [facility] [id number] ALT [Catalytic activity/Vol] 18 U/L Normal 0-32 [facility]; [facility] Work Phone: AST [Catalytic activity/Vol] 21 [iU]/L Normal 0-40 [facility] Internal Medicine Work Phone: Comment on above: Test(s) 467978-ZSA-I ; 831775-EOB-W; 469355-FNB-A; 383122-Tdyzpyqitgsyy; 151375-Glpooogyxsj, Total; 144199-EOJ-U (Total);185241-Wewju LDL-P; 019762-AVW Size; 380308-BZ-UK Scorewas developed and its performance characteristics determinedby COGEON. It has not been cleared or approved by the Foodand Drug Administration.PATIENT WAS FASTINGPERFORMED BY: HeartThis[address] [id number] BY: Timeliner70 [address] GreenstackTransylvania Regional Hospital [id number] AST [Catalytic activity/Vol] 21 U/L Normal 0-40 [facility]; [facility] Internal Medicine Work Phone: Bilirubin [Mass/Vol] 0.4 mg/dL Normal 0.0-1.[address] [facility] Internal Medicine Work Phone: Comment on above: Test(s) 614808-FKS-L ; 147435-PRM-F; 285084-AFA-R; 262655-Dwvayfwdczggv; 395112-Bkewfsoyzrn, Total; 230685-LBO-Y (Total);236024-Wrvbr LDL-P; 063061-BRV Size; 141950-WC-WT Scorewas developed and its performance characteristics determinedby COGEON. It has not been cleared or approved by the Foodand Drug Administration.PATIENT WAS FASTINGPERFORMED BY: HeartThis[address] [id number] BY: Timeliner70 [facility] [id number] Calcium [Mass/Vol] 9.6 mg/dL Normal 8.7-10.3 [facility] Internal Medicine Work Phone: Comment on above: Test(s) 006233-PEV-U ; 181305-EEA-K; 376826-ASG-W; 632100-Hgwcprtlkqelx; 398885-Sxshfaghjhl, Total; 358584-XMK-R (Total);499630-Usshe LDL-P; 740629-EHN Size; 606821-BH-HH Scorewas developed and its performance characteristics determinedby COGEON. It has not been cleared or approved by the Foodand Drug Administration.PATIENT WAS FASTINGPERFORMED BY: HeartThis[address] [id number] BY: Timeliner70 [facility] [id number] Chloride [Moles/Vol] 106 mmol/L Normal 96-[address] [facility] Internal Medicine Work Phone: Comment on above: Test(s) 203585-ATZ-B ; 701759-KCK-Y; 260216-OCT-M; 111720-Kvtwxpsqgikhq; 724695-Suncwerwodj, Total; 608273-OSL-U (Total);562901-Ubefa LDL-P; 557755-PWJ Size; 227879-YH-WO Scorewas developed and its performance characteristics determinedby COGEON. It has not been cleared or approved by the Foodand Drug Administration.PATIENT WAS FASTINGPERFORMED BY: HeartThis[address] [id number] BY: [employer]6370 [facility] [id number] CO2 [Moles/Vol] 23 mmol/L Normal 20-29 [facility] Internal Medicine Work Phone: Comment on above: Test(s) 199682-KLW-X ; 369817-BVF-I; 527076-PDW-V; 171053-Jnqhhcoxyhhmu; 948314-Eeprtiikpjq, Total; 587429-OYO-A (Total);562019-Ekqow LDL-P; 708356-GYP Size; 912218-MH-RV Scorewas developed and its performance characteristics determinedby COGEON. It has not been cleared or approved by the Foodand Drug Administration.PATIENT WAS FASTINGPERFORMED BY: HeartThis[address] [id number] BY: [employer]6370 [facility] [id number] Creatinine [Mass/Vol] 1.22 mg/dL Abnormal 0.57-1.00 [facility] Work Phone: Comment on above: Test(s) 822814-XMP-A ; 286548-MHW-T; 219344-FOZ-H; 191431-Mbyfcvliafhpw; 127805-Ptlhcsizobu, Total; 645090-OTN-N (Total);910252-Nelua LDL-P; 083539-NUD Size; 468056-HT-TN Scorewas developed and its performance characteristics determinedby COGEON. It has not been cleared or approved by the Foodand Drug Administration.PATIENT WAS FASTINGPERFORMED BY: Foodist [address] [id number] BY: Timeliner70 [facility] [id number] GFR/1.73 sq M predicted among blacks CKD-EPI (S/P/Bld) [Vol rate/Area] 48 mL/min/1.73 Abnormal [facility] Work Phone: Comment on above: Test(s) 815960-FGD-V ; 792112-JPQ-T; 588620-EAB-Z; 432864-Vfeykduoxshyd; 094124-Kyrulamuuzx, Total; 778871-WSK-F (Total);151435-Xxubl LDL-P; 221828-CWL Size; 298240-AD-KO Scorewas developed and its performance characteristics determinedby COGEON. It has not been cleared or approved by the Foodand Drug Administration.PATIENT WAS FASTINGPERFORMED BY: Foodist [address] [id number] BY: Hacker Schoollin6370 [facility] [id number] GFR/1.73 sq M predicted among non-blacks CKD-EPI (S/P/Bld) [Vol rate/Area] 41 mL/min/1.73 Abnormal [facility] Work Phone: Comment on above: Test(s) 744135-SQK-F ; 944138-LVD-E; 598249-ADS-G; 985254-Dmmihbaxbqvla; 879542-Nuorrjdloxj, Total; 388060-LXT-P (Total);268212-Umaqt LDL-P; 590361-LAG Size; 260192-PI-OW Scorewas developed and its performance characteristics determinedby COGEON. It has not been cleared or approved by the Foodand Drug Administration.PATIENT WAS FASTINGPERFORMED BY: Foodist [address] [id number] BY: Timeliner70 [facility] [id number] Globulin (S) [Mass/Vol] 2.2 g/dL Normal 1.5-4.5 [facility] Internal Medicine Work Phone: Comment on above: Test(s) 883616-FUR-J ; 879700-DLX-E; 479464-WUM-T; 606724-Fgyzzziscfuwg; 985412-Brobiakiqss, Total; 146512-LRW-K (Total);809666-Lsybg LDL-P; 470293-VWP Size; 479918-NH-CF Scorewas developed and its performance characteristics determinedby COGEON. It has not been cleared or approved by the Foodand Drug Administration.PATIENT WAS FASTINGPERFORMED BY: Foodist [address] [id number] BY: [employer]6370 [facility] [id number] Glucose [Mass/Vol] 98 mg/dL Normal 65-99 [facility] Internal Medicine Work Phone: Comment on above: Test(s) 675781-XQY-G ; 481119-OWB-B; 350395-CRY-N; 370946-Nnxwtlpjmykwq; 949644-Ceupcrphglc, Total; 875172-SUT-B (Total);043114-Pnutf LDL-P; 029032-EUU Size; 156267-MT-VO Scorewas developed and its performance characteristics determinedby COGEON. It has not been cleared or approved by the Foodand Drug Administration.PATIENT WAS FASTINGPERFORMED BY: [employer] [id number] BY: OffermaticaTrenton Psychiatric HospitalQvurev6501 [facility] [id number] Potassium [Moles/Vol] 4.6 mmol/L Normal 3.5-5.2 [facility] Internal Medicine Work Phone: Comment on above: Test(s) 740386-WWL-E ; 647820-DSE-C; 850726-LJL-D; 409158-Ptgkcgyxmgeed; 792110-Lvtyikhhrdm, Total; 138586-WYP-L (Total);211537-Mzgqz LDL-P; 162914-XYR Size; 007439-HK-SN Scorewas developed and its performance characteristics determinedby COGEON. It has not been cleared or approved by the Foodand Drug Administration.PATIENT WAS FASTINGPERFORMED BY: Foodist [address] [id number] BY: Offermatica Ebkuxf7902 [facility] [id number] Protein [Mass/Vol] 6.6 g/dL Normal 6.0-8.5 [facility] Internal Medicine Work Phone: Comment on above: Test(s) 511078-GIN-O ; 195225-NXP-I; 603134-XYH-Y; 560308-Apvpcjjkojvxe; 011922-Tdgwmjclosa, Total; 368619-SGP-X (Total);187152-Mtrrq LDL-P; 158401-GYE Size; 811117-PY-PQ Scorewas developed and its performance characteristics determinedby COGEON. It has not been cleared or approved by the Foodand Drug Administration.PATIENT WAS FASTINGPERFORMED BY: Offermatica[address] [id number] BY: OffermaticaTrenton Psychiatric HospitalXypgvt2633 [facility] [id number] Sodium [Moles/Vol] 144 mmol/L Normal 134-144 [facility] Internal Medicine Work Phone: Comment on above: Test(s) 092916-PUD-C ; 525647-QDO-W; 986481-SRW-A; 033407-Pupdbjrnjjbqm; 422680-Bnhlmjcvmfl, Total; 135732-LBA-D (Total);408917-Qeeya LDL-P; 600594-KDN Size; 667958-NJ-NN Scorewas developed and its performance characteristics determinedby COGEON. It has not been cleared or approved by the Foodand Drug Administration.PATIENT WAS FASTINGPERFORMED BY: Foodist [address] [id number] BY: COGEON Cqqbjb5660 [facility] [id number] Urea nitrogen [Mass/Vol] 22 mg/dL Normal 8- [facility] Work Phone: Comment on above: Test(s) 458572-MTM-I ; 586657-LPW-G; 049037-YJE-O; 701194-Kllqdedgogdlg; 351039-Ejfhdaztwwe, Total; 542549-YYD-M (Total);040239-Cfqyy LDL-P; 123313-PNT Size; 623084-UH-LJ Scorewas developed and its performance characteristics determinedby COGEON. It has not been cleared or approved by the Foodand Drug Administration.PATIENT WAS FASTINGPERFORMED BY: Foodist [address] [id number] BY: Rosterbot Foczgk5977 [facility] [id number] Urea nitrogen/Creatinine [Mass ratio] 18 mg/mg Normal 12- [facility] Work Phone: Comment on above: Test(s) 246095-VKF-V ; 090968-VLI-B; 215113-NZX-M; 129116-Xvwqslxqhevtq; 015255-Gxxedgdzyzz, Total; 265381-CVK-Q (Total);708268-Xmamc LDL-P; 911782-LEW Size; 425356-TO-GG Scorewas developed and its performance characteristics determinedby COGEON. It has not been cleared or approved by the Foodand Drug Administration.PATIENT WAS FASTINGPERFORMED BY: Foodist [address] [id number] BY: [employer]6370 [facility] [id number] NMR Profile (70766)Ordered B y: Manager Internal on 07-20-2019 Cholesterol [Mass/Vol] 147 mg/dL Normal 100-199 [facility] Work Phone: Comment on above: Test(s) 709100-FUG-S ; 393776-BMF-W; 597061-QCP-Z; 379714-Wsmbfvhsgcxyz; 017831-Brwxdxcyiyn, Total; 362457-PEJ-V (Total);831439-Zbsbb LDL-P; 766456-LYB Size; 887884-ND-MB Scorewas developed and its performance characteristics determinedby COGEON. It has not been cleared or approved by the Foodand Drug Administration.PATIENT WAS FASTINGPERFORMED BY: Foodist [address] [id number] BY: [employer]6370 [facility] [id number] Information: NURSE DRAW Lipoprotein.alpha [Moles/Vol] 33.7 umol/L Normal [facility] Work Phone: Comment on above: Test(s) 017058-RLE-K ; 979209-DBC-G; 320627-WJG-I; 856803-Iyhiewrrwxilb; 309797-Igjqwkmgoyt, Total; 528674-QOY-Z (Total);245064-Puzwj LDL-P; 796669-CLS Size; 623222-EK-PS Scorewas developed and its performance characteristics determinedby COGEON. It has not been cleared or approved by the Foodand Drug Administration.PATIENT WAS FASTINGPERFORMED BY: Foodist [address] [id number] BY: [employer]6370 [facility] [id number] Information: NURSE DRAW Lipoprotein.beta.sub particle [Entitic length] 20.2 nm Abnormal [facility] Work Phone: Comment on above: INTERPRETATIVE INFORMATION PARTICLE CONCENTRATION AND SIZE <--Lower CVD Risk Higher CVD Risk--> LDL AND HDL PARTICLES Percentile in Reference Population HDL-P (total) High 75th 50th 25th Low >34.9 34.9 30.5 26.7 <26.7 . Small LDL-P Low 25th 50th 75th High <117 117 527 839 >839 . LDL Size <-Large (Pattern A)-> <-Small (Pattern B)-> 23.0 20.6 20.5 19.0 Small LDL-P and LDL Size are associated with CVD risk, but not afterLDL-P is taken into account. Test(s) 220659-TYV-B ; 823804-FZT-M; 878533-NQU-L; 265324-Kwoduggsichbe; 974176-Nsuyjgzblrh, Total; 363058-WDW-L (Total);983297-Iopga LDL-P; 125935-WRC Size; 882079-YE-EF Scorewas developed and its performance characteristics determinedby COGEON. It has not been cleared or approved by the Foodand Drug Administration.PATIENT WAS FASTINGPERFORMED BY: BN COGEON [address] [id number] BY: OffermaticaTrenton Psychiatric HospitalMcpgco1266 [facility] [id number] Information: NURSE DRAW Lipoprotein.beta.sub particle [Moles/Vol] 813 nmol/L Normal Comprehensi ve Internal Medicine Work Phone: Comment on above: Low < 1000 Moderate 1000 - 1299 Borderline-High 1300 - 1599 High 1600 - 2000 Very High > 2000 Test(s) 656350-XRX-E ; 635328-KPL-U; 650188-NIB-U; 878017-Eclltdkjbafrd; 026347-Bjdvrsrcxon, Total; 225054-VAK-I (Total);452004-Ysfib LDL-P; 397780-CLQ Size; 468442-ZO-EG Scorewas developed and its performance characteristics determinedby COGEON. It has not been cleared or approved by the Foodand Drug Administration.PATIENT WAS FASTINGPERFORMED BY: [employer] [id number] BY: OffermaticaRichard V[place] 6228770 [facility] [id number] Information: NURSE DRAW Lipoprotein.beta.sub particle.small [Moles/Vol] 467 nmol/L Normal [facility] Work Phone: Comment on above: Test(s) 422766-CLV-B ; 211894-DDL-K; 112952-QNR-Z; 307531-Kfdtfrympilvx; 790135-Kcilvbcxhpx, Total; 011768-PCE-P (Total);477588-Tlnsm LDL-P; 451767-MDG Size; 995146-EK-QK Scorewas developed and its performance characteristics determinedby COGEON. It has not been cleared or approved by the Foodand Drug Administration.PATIENT WAS FASTINGPERFORMED BY: Foodist [address] [id number] BY: OffermaticaMimbres Memorial HospitalUlpxuf7233 [facility] [id number] Information: NURSE DRAW Triglyceride [Mass/Vol] 145 mg/dL Normal 0-149 [facility] Work Phone: Comment on above: Test(s) 637956-CHO-H ; 235742-FDU-T; 115636-BMO-Y; 519427-Xgzbydhwdfxfl; 532724-Yrnmltbvbga, Total; 949643-QJV-Y (Total);017839-Iufkd LDL-P; 574925-NJA Size; 102182-QV-XW Scorewas developed and its performance characteristics determinedby COGEON. It has not been cleared or approved by the Foodand Drug Administration.PATIENT WAS FASTINGPERFORMED BY: [employer] [id number] BY: [employer]6370 [facility] [id number] Information: NURSE DRAW NMR Profile (39991) 45 mg/dL Normal [facility] Internal Medicine Work Phone: Comment on above: Test(s) 887484-CKO-F ; 962493-IKN-I; 030965-BAW-Y; 134375-Sdkhmswnscdiq; 483831-Xeagscunvnf, Total; 688685-XRV-L (Total);896291-Cykfj LDL-P; 106376-AXY Size; 815247-OM-GM Scorewas developed and its performance characteristics determinedby COGEON. It has not been cleared or approved by the Foodand Drug Administration.PATIENT WAS FASTINGPERFORMED BY: Foodist [address] [id number] BY: [employer]6370 [facility] [id number] Information: NURSE DRAW NMR Profile (22544) 73 mg/dL Normal 0-99 [facility] Internal Medicine Work Phone: Comment on above: . Optimal < 100 Abov e optimal 100 - 129 Borderline 130 - 159 High 160 - 189 Very high > 189 .LDL-C is inaccurate if patient is non-fasting. Test(s) 196044-STU-U ; 244033-IRO-A; 962181-FFN-K; 288970-Ocvnvcednhtyp; 852728-Wwfilokusla, Total; 747354-DVN-P (Total);551120-Cncto LDL-P; 688267-FQT Size; 321090-CB-GJ Scorewas developed and its performance characteristics determinedby COGEON. It has not been cleared or approved by the Foodand Drug Administration.PATIENT WAS FASTINGPERFORMED BY: [employer] [id number] BY: [employer]6370 [facility] [id number] Information: NURSE DRAW NMR Profile (27838) 145 mg/dL Normal 0-149 [facility] Internal Medicine; [facility] Work Phone: NMR Profile (52249) 147 mg/dL Normal 100-199 Compr ehensive Internal Medicine; [facility] Work Phone: URINALYSIS ([id number])Ordered By : Manager Internal on 07-20-2019 Appearance (U) Clear Normal Comprehens raysa Internal Medicine Work Phone: Comment on above: Test(s) 225422-ETC-Y ; 466163-DDJ-D; 439615-JDA-E; 802570-Tyiwswyqdyybf; 352854-Tssgufsxtzb, Total; 791759-DUU-N (Total);757309-Vffib LDL-P; 057035-YPT Size; 658838-BE-ZY Scorewas developed and its performance characteristics determinedby [employer]. It has not been cleared or approved by the Foodand Drug Administration.PATIENT WAS FASTINGPERFORMED BY: HeartThis[address] [id number] BY: Wind Power HoldingsPhelps Health [id number] Bilirubin Ql (U) Negative Normal Comprehe nsive Internal Medicine Work Phone: Comment on above: Test(s) 055583-VEY-J ; 673988-UEF-M; 807490-WON-U; 461926-Pphfmtzmsxqjn; 518829-Voxlixbaqcn, Total; 030829-BGW-I (Total);668484-Qnhgq LDL-P; 774667-UIX Size; 070265-MF-YW Scorewas developed and its performance characteristics determinedby [employer]. It has not been cleared or approved by the Foodand Drug Administration.PATIENT WAS FASTINGPERFORMED BY: HeartThis[address] [id number] BY: Timeliner70 [facility]onPhelps Health [id number] Bilirubin Ql (U) Negative Normal Comprehe nsive Internal Medicine; [facility] Work Phone: Color (U) Yellow Normal [facility] Work Phone: Comment on above: Test(s) 987163-KWQ-X ; 446607-OII-I; 764274-ZUT-K; 001132-Wkijcupsciadr; 383781-Daqjwchyqeu, Total; 979519-XJI-C (Total);349849-Yxpsz LDL-P; 773081-NCW Size; 706268-BZ-IU Scorewas developed and its performance characteristics determinedby [employer]GE[employer]. It has not been cleared or approved by the Foodand Drug Administration.PATIENT WAS FASTINGPERFORMED BY: COGEON [address] [id number] BY: OffermaticaMimbres Memorial HospitalMndvns9796 [facility] [id number] Glucose Ql (U) Negative Normal Comprehens raysa Internal Medicine Work Phone: Comment on above: Test(s) 974327-TMC-F ; 304292-FXZ-H; 132064-HGF-X; 745123-Oxrxdctvfhopc; 692776-Hliwsazasaa, Total; 892683-DVX-Y (Total);232245-Cgcjg LDL-P; 899319-KMU Size; 729213-NS-SG Scorewas developed and its performance characteristics determinedby [employer]GE[employer]. It has not been cleared or approved by the Foodand Drug Administration.PATIENT WAS FASTINGPERFORMED BY: Foodist [address] [id number] BY: OffermaticaTrenton Psychiatric HospitalDgicpd5058 [facility] [id number] Glucose Ql (U) Negative Normal Comprehens raysa Internal Medicine; [facility] Work Phone: Hemoglobin Ql (U) Negative Normal Compreh ensive Internal Medicine Work Phone: Comment on above: Test(s) 776095-HSP-H ; 716974-BCZ-L; 671071-FCC-F; 610322-Roavwriyorcpy; 135900-Epbospamlgd, Total; 171739-YNW-X (Total);009043-Onvll LDL-P; 961949-LTN Size; 248327-QK-LS Scorewas developed and its performance characteristics determinedby [employer]GE[employer]. It has not been cleared or approved by the Foodand Drug Administration.PATIENT WAS FASTINGPERFORMED BY: [employer] [id number] BY: [employer]6370 [facility]alUNC [facility] [id number] Hemoglobin Ql (U) Negative Normal Compreh ensive Internal Medicine; [facility] Work Phone: Ketones Ql (U) Negative Normal Comprehens raysa Internal Medicine Work Phone: Comment on above: Test(s) 914647-FIO-W ; 490002-VRN-X; 020417-KSS-Q; 976352-Lcalvdxslqqxb; 040401-Nnjlatixpbk, Total; 077290-TYE-R (Total);411669-Dauzn LDL-P; 301184-OBP Size; 616903-JO-SW Scorewas developed and its performance characteristics determinedby [employer]GE[employer]. It has not been cleared or approved by the Foodand Drug Administration.PATIENT WAS FASTINGPERFORMED BY: HeartThis[address] [id number] BY: Timeliner70 [facility] BehavioralUNC [facility] [id number] Ketones Ql (U) Negative Normal Comprehens raysa Internal Medicine; [facility] Work Phone: Leukocyte esterase Test strip Ql (U) 1+ Abnormal [facility] Work Phone: Comment on above: Test(s) 334500-FGJ-H ; 422731-KMX-Z; 174217-SMX-L; 809852-Yzjjjiomdpyjr; 315565-Gxewzbugcos, Total; 185337-WQU-Y (Total);249287-Tjrbz LDL-P; 177453-VOD Size; 722735-KK-VB Scorewas developed and its performance characteristics determinedby [employer]GE[employer]. It has not been cleared or approved by the Foodand Drug Administration.PATIENT WAS FASTINGPERFORMED BY: Foodist [address] [id number] BY: [employer]6[address] GreenstackTransylvania Regional Hospital [id number] Microscopic observation LM Nom (Urine sed) See below: Normal [facility] Work Phone: Comment on above: Microscopic was no cated and was performed. Test(s) 103285-HJL-D ; 628696-HBV-T; 505302-YSP-Q; 563678-Gzyiuohwwvbsg; 822530-Awlthhfcilg, Total; 613864-NZO-I (Total);668620-Ekljb LDL-P; 516214-MFV Size; 776949-QY-MD Scorewas developed and its performance characteristics determinedby [employer]GE[employer]. It has not been cleared or approved by the Foodand Drug Administration.PATIENT WAS FASTINGPERFORMED BY: Foodist [address] [id number] BY: Rosterbot Ifzzmz7815 [facility] [id number] Nitrite Ql (U) Negative Normal Comprehens raysa Internal Medicine Work Phone: Comment on above: Test(s) 417410-OTO-Q ; 851130-SPN-I; 343275-MMW-O; 364129-Eggtbkkbslzal; 410211-Ujrmhhomfme, Total; 426176-XHM-J (Total);714527-Wcsyq LDL-P; 760104-IKI Size; 992577-VB-NH Scorewas developed and its performance characteristics determinedby COGE[employer]. It has not been cleared or approved by the Foodand Drug Administration.PATIENT WAS FASTINGPERFORMED BY: Foodist [address] [id number] BY: ResonergyTrenton Psychiatric HospitalDztvdi4700 [facility] [id number] Nitrite Ql (U) Negative Normal Comprehens raysa Internal Medicine; [facility] Work Phone: pH (U) 6.0 [pH] Normal 5.0-7.5 [facility] Work Phone: Comment on above: Test(s) 188065-VCV-S ; 630268-UXE-N; 840679-ITJ-K; 184551-Dwtyupofkjdpq; 548070-Indaktkcuof, Total; 268150-TNL-I (Total);340906-Tjqls LDL-P; 192075-ZSC Size; 113737-QR-MD Scorewas developed and its performance characteristics determinedby COGE[employer]. It has not been cleared or approved by the Foodand Drug Administration.PATIENT WAS FASTINGPERFORMED BY: Foodist [address] [id number] BY: Offermatica Cpbzrb3888 [address] GreenstackTransylvania Regional Hospital [id number] Protein Ql (U) Negative Normal Comprehens raysa Internal Medicine Work Phone: Comment on above: Test(s) 030099-GIU-S ; 515909-KCA-D; 072959-RNM-G; 011124-Lcbzcvbpupmgr; 084485-Rashzdbxzwx, Total; 468983-TTO-Y (Total);569715-Disgy LDL-P; 197272-ULZ Size; 138277-PM-IS Scorewas developed and its performance characteristics determinedby [employer]GE[employer]. It has not been cleared or approved by the Foodand Drug Administration.PATIENT WAS FASTINGPERFORMED BY: Foodist [address] [id number] BY: [employer]70 [facility] [id number] Protein Ql (U) Negative Normal Comprehens raysa Internal Medicine; [facility] Work Phone: Specific gravity (U) [Rel density] 1.011 1 Normal 1.005-1.03 0 [facility] Work Phone: Comment on above: Test(s) 358934-QMX-B ; 541810-DQZ-L; 102931-PAX-M; 373325-Qgfyhuqzhxyjy; 755158-Iypxmbnaxku, Total; 343264-QBF-B (Total);077245-Wkcor LDL-P; 437253-FTV Size; 113216-PZ-IX Scorewas developed and its performance characteristics determinedby COGE[employer]. It has not been cleared or approved by the Foodand Drug Administration.PATIENT WAS FASTINGPERFORMED BY: [employer] [id number] BY: COGEON Gppqxk8908 [facility] [id number] Urobilinogen (U) [Mass/Vol] 0.2 mg/dL Normal 0.2-1.0 [facility]; [facility] Internal Medicine Work Phone: Urobilinogen Test strip (U) [Mass/Vol] 0.2 mg/dL Normal 0.2-1.0 [facility] Hospitalensi Internal [facility] Work Phone: Comment on above: Test(s) 312988-KNU-N ; 410225-ZFG-Q; 438493-QLL-A; 251357-Uzxbxqdqfundm; 729294-Ckepdirztbn, Total; 955619-JBQ-Q (Total);911381-Vomhx LDL-P; 708550-DME Size; 392469-AK-LC Scorewas developed and its performance characteristics determinedby COGEON. It has not been cleared or approved by the Foodand Drug Administration.PATIENT WAS FASTINGPERFORMED BY: Foodist [address] [id number] BY: Morria [employer]opharmaceuticalsox AcunoteUNC Health Blue Ridge [id number] CBC with auto diff (07394)Or dered By: Manager Internal on 01-26-2019 Basophils #/vol (Bld) 0.1 {x10E3/uL} Normal 0.0-0.2 [facility] Internal Medicine Work Phone: Comment on above: PATIENT WAS FASTINGP ERFORMED BY: Foodist [address] [id number] BY: Cloud Sherpas [facility] [id number] Basophils (Bld) [#/Vol] 0.1 10*3/uL Normal 0.0-0.2 [facility]; [facility] Internal Medicine Work Phone: Basophils/100 WBC (Bld) 1 % Normal [facility] Internal Medicine Work Phone: Comment on above: PATIENT WAS FASTINGP ERFORMED BY: Foodist [address] [id number] BY: Hacker SchoollinZeroVMTransylvania Regional Hospital [id number] Eosinophils #/vol (Bld) 0.2 {x10E3/uL} Normal 0.0-0.4 [facility] Work Phone: Comment on above: PATIENT WAS FASTINGP ERFORMED BY: [employer] [id number] BY: CLARE [facility] Ouhwje6586 Pavon RoadDublin [place] [id number] Eosinophils (Bld) [#/Vol] 0.2 10*3/uL Normal 0.0-0.4 [facility]; [facility] Work Phone: Eosinophils/100 WBC (Bld) 3 % Normal [facility] Work Phone: Comment on above: PATIENT WAS FASTINGP ERFORMED BY: Offermatica[address] [id number] BY: [facility] Koozbd6794 Pavon RoadDublin [place] [id number] Erythrocyte distribution width Ratio (RBC) 14.2 % Normal 12.3-15.4 [facility] Work Phone: Comment on above: PATIENT WAS FASTINGP ERFORMED BY: [employer] [id number] BY: LabCo Rggcac9591 Pavon RoadDublin [place] [id number] Hematocrit Volume Fraction (Bld) 44.1 % Normal 34.0-46.6 [facility] Work Phone: Comment on above: PATIENT WAS FASTINGP ERFORMED BY: LabCo[address] [id number] BY: [facility] Xxkdii4944 Pavon RoadDublin [place] [id number] Hemoglobin mass conc (Bld) 14.3 g/dL Normal 11.1-15.9 [facility] Work Phone: Comment on above: PATIENT WAS FASTINGP ERFORMED BY: LabCo[address] [id number] BY: [facility] Oedoia5785 Pavon RoadDublin [place] [id number] Immature granulocytes #/vol (Bld) 0.0 {x10E3/uL} Normal 0.0-0.1 [facility] Work Phone: Comment on above: PATIENT WAS FASTINGP ERFORMED BY: Offermatica[address] [id number] BY: [facility] Montpel[facility] HospitalSkyVu EntertainmentRichard Ville 6228770 Pavon RoadOur Community Hospitalin [place] [id number] Immature granulocytes (Bld) [#/Vol] 0.0 10*3/uL Normal 0.0-0.1 [facility]; [facility] Work Phone: Immature granulocytes/100 WBC (Bld) 0 % Normal [facility] Work Phone: Comment on above: PATIENT WAS FASTINGP ERFORMED BY: Offermatica[address] [id number] BY: OffermaticaMimbres Memorial HospitalPnsctc4352 [facility] [id number] Lymphocytes #/vol (Bld) 1.2 {x10E3/uL} Normal 0.7-3.1 [facility] Work Phone: Comment on above: PATIENT WAS FASTINGP ERFORMED BY: Offermatica[address] [id number] BY: OffermaticaRichard Ville 6228770 [facility] [id number] Lymphocytes (Bld) [#/Vol] 1.2 10*3/uL Normal 0.7-3.1 [facility]; [facility] Work Phone: Lymphocytes/100 WBC (Bld) 16 % Normal [facility] Work Phone: Comment on above: PATIENT WAS FASTINGP ERFORMED BY: Offermatica[address] [id number] BY: OffermaticaRichard Ville 6228770 [facility] [id number] MCH Entitic mass (RBC) 27.5 pg Normal 26.6-33.0 [facility] Work Phone: Comment on above: PATIENT WAS FASTINGP ERFORMED BY: [address] [id number] BY: LabCorewell Health Blodgett Hospital6370 [facility] [id number] MCHC mass conc (RBC) 32.4 g/dL Normal 31.5-35.[address] [facility] Internal Medicine Work Phone: Comment on above: PATIENT WAS FASTINGP ERFORMED BY: [address] [id number] BY: LabCorewell Health Blodgett Hospital6370 [facility] [id number] MCV Entitic volume (RBC) 85 fL Normal 79-97 [facility] Medicine Work Phone: Comment on above: PATIENT WAS FASTINGP ERFORMED BY: [address] [id number] BY: LabAmanda Ville 9405370 [facility] [id number] Monocytes #/vol (Bld) 0.9 {x10E3/uL} Normal 0.1-0.9 [facility] Work Phone: Comment on above: PATIENT WAS FASTINGP ERFORMED BY: [address] [id number] BY: [facility]6370 [facility] [id number] Monocytes (Bld) [#/Vol] 0.9 10*3/uL Normal 0.1-0.9 [facility]; [facility] Work Phone: Monocytes/100 WBC (Bld) 12 % Normal [facility] Work Phone: Comment on above: PATIENT WAS FASTINGP ERFORMED BY: [address] [id number] BY: LabCox South Htoquh6706 [facility] [id number] Neutrophils #/vol (Bld) 5.2 {x10E3/uL} Normal 1.4-7.0 [facility] Work Phone: Comment on above: PATIENT WAS FASTINGP ERFORMED BY: Offermatica[address] [id number] BY: OffermaticaTrenton Psychiatric HospitalFsgmau9566 [facility] [id number] Neutrophils (Bld) [#/Vol] 5.2 10*3/uL Normal 1.4-7.0 [facility]; [facility] Work Phone: Neutrophils/100 WBC (Bld) 68 % Normal [facility] Work Phone: Comment on above: PATIENT WAS FASTINGP ERFORMED BY: Offermatica[address] [id number] BY: OffermaticaRichard Ville 6228770 [facility] [id number] Platelets #/vol (Bld) 270 {x10E3/uL} Normal 150-450 [facility] Work Phone: Comment on above: Please note refere nce interval change PATIENT WAS FASTINGP ERFORMED BY: Offermatica[address] [id number] BY: OffermaticaRichard [place]ille 6228770 [facility] [id number] Platelets (Bld) [#/Vol] 270 10*3/uL Normal 150-450 [facility]; [facility] Work Phone: RBC #/vol (Bld) 5.20 {x10E6/uL} Normal 3.77-5.28 Comp [facility] Internal Medicine Work Phone: Comment on above: PATIENT WAS FASTINGP ERFORMED BY: Offermatica[address] [id number] BY: OffermaticaRichard [place] 6228770 [facility] [id number] RBC (Bld) [#/Vol] 5.20 10*6/uL Normal 3.77-5.28 Compr ehensive Internal Medicine; [facility] Work Phone: WBC #/vol (Bld) 7.6 {x10E3/uL} Normal 3.4-10.8 Compr ehensive Internal Medicine Work Phone: Comment on above: PATIENT WAS FASTINGP ERFORMED BY: Offermatica[address] [id number] BY: LabSkyVu EntertainmentTrenton Psychiatric HospitalUqhzqt9092 [facility] [id number] WBC (Bld) [#/Vol] 7.6 10*3/uL Normal 3.4-10.8 Compre [facility]river[facility] Internal Medicine; [facility] Work Phone: Homocysteine, Plasma (92413) Ordered By: Manager Internal on 01-26-2019 Homocysteine molar conc 18.4 umol/L Abnormal 0.0-15.0 [facility] Work Phone: Comment on above: PATIENT WAS FASTINGP ERFORMED BY: Foodist [address] [id number] BY: ResonergyTrenton Psychiatric HospitalVtmvor8786 [facility] [id number] LIPOPROTEIN, BLD, BY NMR (36 843)Ordered By: Manager Internal on 01-26-2019 Cholesterol mass conc 147 mg/dL Normal 100-199 [facility] Medicine Work Phone: Comment on above: PATIENT WAS FASTINGP ERFORMED BY: Offermatica[address] [id number] BY: LabSkyVu Entertainment Bwzwyp4310 [facility] [id number]; fu 5-30-19 db Lipoprotein.alpha molar conc 33.3 umol/L Normal [facility] Work Phone: Comment on above: PATIENT WAS FASTINGP ERFORMED BY: Offermatica[address] [id number] BY: LabSkyVu Entertainment Wgmqqv0445 [facility] [id number]; fu 5-30-19 db Lipoprotein.beta.sub particle Entitic length 20.4 nm Abnormal [facility] Medicine Work Phone: Comment on above: INTERPRETATIVE INFORMATION PARTICLE CONCENTRATION AND SIZE <--Lower CVD Risk Higher CVD Risk--> LDL AND HDL PARTICLES Percentile in Reference Population HDL-P (total) High 75th 50th 25th Low >34.9 34.9 30.5 26.7 <26.7 . Small LDL-P Low 25th 50th 75th High <117 117 527 839 >839 . LDL Size <-Large (Pattern A)-> <-Small (Pattern B)-> 23.0 20.6 20.5 19.0 Small LDL-P and LDL Size are associated with CVD risk, but not afterLDL-P is taken into account. .These assays were developed and their performance characteristicsdetermined by [employer]. These assays have not been cleared by [place] Food and Drug Administration. The clinical utility of theselaboratory values have not been fully established. PATIENT WAS FASTINGP ERFORMED BY: HeartThiston1447 [facility] [id number] BY: [employer] [place] [id number]; fu 5-30-19 db Lipoprotein.beta.sub particle molar conc 807 nmol/L Normal Comprehensiv e Internal Medicine Work Phone: Comment on above: Low < 1000 Moderate 1000 - 1299 Borderline-High 1300 - 1599 High 1600 - 2000 Very High > 2000 PATIENT WAS FASTINGP ERFORMED BY: Foodist [address] [id number] BY: Timeliner[address] GreenstackTransylvania Regional Hospital [id number]; fu 5-30-19 db Lipoprotein.beta.sub particle.small molar conc 427 nmol/L Normal [facility] Work Phone: Comment on above: PATIENT WAS FASTINGP ERFORMED BY: Offermatica[address] [id number] BY: LabCo Clidtx6420 [facility] [id number]; fu 02-02-19 db Triglyceride mass conc 167 mg/dL Abnormal 0-149 [facility] Work Phone: Comment on above: PATIENT WAS FASTINGP ERFORMED BY: Offermatica[address] [id number] BY: LabSkyVu Entertainment Kqeelg7098 [facility] [id number]; fu 02-02-19 db LIPOPROTEIN, BLD, BY NMR (59911) 42 mg/dL Normal [facility] Work Phone: Comment on above: PATIENT WAS FASTINGP ERFORMED BY: Offermatica[address] [id number] BY: Offermatica Xptkyo1761 [facility] [id number]; fu 5 db LIPOPROTEIN, BLD, BY NMR (24998) 72 mg/dL Normal 0-99 [facility] Work Phone: Comment on above: . Optimal < 100 Abov e optimal 100 - 129 Borderline 130 - 159 High 160 - 189 Very high > 189 .LDL-C is inaccurate if patient is non-fasting. PATIENT WAS FASTINGP ERFORMED BY: Offermatica[address] [id number] BY: LabSkyVu Entertainment Cnnaxf7744 [facility] [id number]; fu 5-30-19 db LIPOPROTEIN, BLD, BY NMR (71459) 167 mg/dL Abnormal 0-149 [facility]; [facility] Work Phone: LIPOPROTEIN, BLD, BY NMR (01360) 147 mg/dL Normal 100-199 [facility]; [facility] Work Phone: METABOLIC PANEL, COMPREHENSI VE (48186)Ordered By: Manager Internal on 01-26-2019 Albumin mass conc 4.2 g/dL Normal 3.5-4.7 Compreh [facility] Internal Medicine Work Phone: Comment on above: PATIENT WAS FASTINGP ERFORMED BY: Offermatica Bvkdsyltro[address] [id number] BY: [facility]Co Ntlfgh6565 [facility] [id number] Albumin/Globulin mass ratio 2.1 {ratio} Normal 1.2-2.2 [facility] Work Phone: Comment on above: PATIENT WAS FASTINGP ERFORMED BY: Offermatica[address] [id number] BY: CB [facility] Tusfrr5427 Pavon RoadDuUNC Health Blue Ridge [id number] ALP [Catalytic activity/Vol] 77 U/L Normal 39-117 [facility]; [facility] Work Phone: ALP enzyme act/vol 77 [iU]/L Normal 39-117 [facility] Internal Medicine Work Phone: Comment on above: PATIENT WAS FASTINGP ERFORMED BY: Offermatica[address] [id number] BY: [facility] Jylzdn6748 [facility] [id number] ALT [Catalytic activity/Vol] 20 U/L Normal 0-32 [facility]; [facility] Work Phone: ALT enzyme act/vol 20 [iU]/L Normal 0-32 [facility] Internal Medicine Work Phone: Comment on above: PATIENT WAS FASTINGP ERFORMED BY: Offermatica[address] [id number] BY: CB [facility] Vqjlbl9575 Pavon RoadDublin [place] [id number] AST [Catalytic activity/Vol] 24 U/L Normal 0-40 [facility]; [facility] Work Phone: AST enzyme act/vol 24 [iU]/L Normal 0-40 Compre hensive Internal Medicine Work Phone: Comment on above: PATIENT WAS FASTINGP ERFORMED BY: [facility] [address] [id number] BY: CLARE [facility] Pymmqs3163 Pav[address] RoadDublin [place] [id number] Bilirubin mass conc 0.4 mg/dL Normal 0.0-1.2 Compr ehensive Internal Medicine Work Phone: Comment on above: PATIENT WAS FASTINGP ERFORMED BY: LabCo[address] [id number] BY: CB [facility] Yigjxq5012 [address] RoadDublin [place] [id number] Calcium mass conc 9.4 mg/dL Normal 8.7-10.3 Compreh ensive Internal Medicine Work Phone: Comment on above: PATIENT WAS FASTINGP ERFORMED BY: Lab[address] [id number] BY: CLARE [facility] Woraot8193 [address] RoadDublin [place] [id number] Chloride molar conc 105 mmol/L Normal 96-106 Compr ensive Internal Medicine Work Phone: Comment on above: PATIENT WAS FASTINGP ERFORMED BY: Lab[address] [id number] BY: [facility] Whqnyy7847 [address] RoadDublin [place] [id number] CO2 molar conc 24 mmol/L Normal 20-29 Comprehens raysa Internal Medicine Work Phone: Comment on above: PATIENT WAS FASTINGP ERFORMED BY: [facility] [address] [id number] BY: CB [facility] Dthphg1985 Pav[address] RoadDublin [place] [id number] Creatinine mass conc 1.12 mg/dL Abnormal 0.57-1.00 Comp rehensive Internal Medicine Work Phone: Comment on above: PATIENT WAS FASTINGP ERFORMED BY: LabCo[address] [id number] BY: [facility] Gkrxsz6156 [address] [facility] Hospitalin [place] [id number] GFR/1.73 sq M predicted among blacks CKD-EPI vol rate/area (S/P/Bld) 53 mL/min/1.73 Abnormal Comprehensiv e Internal Medicine Work Phone: Comment on above: PATIENT WAS FASTINGP ERFORMED BY: LabCo[address] [id number] BY: [facility] Wlziht3268 [facility] [id number] GFR/1.73 sq M predicted among non-blacks CKD-EPI vol rate/area (S/P/Bld) 46 mL/min/1.73 Abnormal [facility] Work Phone: Comment on above: PATIENT WAS FASTINGP ERFORMED BY: Lab[address] [id number] BY: [facility] Xovoea6561 [facility] [id number] Globulin mass conc (S) 2.0 g/dL Normal 1.5-4.5 [facility] Work Phone: Comment on above: PATIENT WAS FASTINGP ERFORMED BY: [employer] [id number] BY: [facility] Msfvie6226 [facility] [id number] Glucose mass conc 103 mg/dL Abnormal 65-99 Compreh ensive Internal Medicine Work Phone: Comment on above: PATIENT WAS FASTINGP ERFORMED BY: Lab[address] [id number] BY: LabCoTrenton Psychiatric HospitalHusvlu4722 [facility] [id number] Potassium molar conc 4.1 mmol/L Normal 3.5-5.2 Comp rehensive Internal Medicine Work Phone: Comment on above: PATIENT WAS FASTINGP ERFORMED BY: [facility] Qkdkqtgigr2632 [facility] [id number] BY: CLARE [facility] Nrjsgl5990 [address]on RoadDublin [place] [id number] Protein mass conc 6.2 g/dL Normal 6.0-8.5 Compreh ensive Internal Medicine Work Phone: Comment on above: PATIENT WAS FASTINGP ERFORMED BY: [facility] [address] [id number] BY: CLARE [facility] Moacja9962 [address]on RoadDublin [place] [id number] Sodium molar conc 145 mmol/L Abnormal 134-144 Compreh ensive Internal Medicine Work Phone: Comment on above: PATIENT WAS FASTINGP ERFORMED BY: [facility] [address] [id number] BY: CLARE [facility] Rlyfvz1497 [address]on RoadDublin [place] [id number] Urea nitrogen mass conc 18 mg/dL Normal 8-27 [facility] Work Phone: Comment on above: PATIENT WAS FASTINGP ERFORMED BY: [facility] [address] [id number] BY: CLARE [facility] Xcppqj5524 [address] RoadDublin [place] [id number] Urea nitrogen/Creatinine mass ratio 16 mg/mg Normal 12-28 [facility] Work Phone: Comment on above: PATIENT WAS FASTINGP ERFORMED BY: [facility] [address] [id number] BY: [facility] Gctnyk4168 [address] RoadDublin [place] [id number] URINALYSIS, W/ MICRO ([id number]) Ordered By: Manager Internal on 01-26-2019 Appearance Nom (U) Clear Normal Compre hensive Internal Medicine Work Phone: Comment on above: PATIENT WAS FASTINGP ERFORMED BY: [facility]Co[address] [id number] BY: [facility] Gktvew9964 [address] RoadDublin [place] [id number] Bilirubin Ql (U) Negative Normal Comprehe nsive Internal Medicine Work Phone: Comment on above: PATIENT WAS FASTINGP ERFORMED BY: [employer] [id number] BY: CLARE [facility] Roznmp1549 [address] RoadDublin [place] [id number] Bilirubin Ql (U) Negative Normal Comprehe nsive Internal Medicine; [facility] Work Phone: Color Nom (U) Yellow Normal Comprehensi ve Internal Medicine Work Phone: Comment on above: PATIENT WAS FASTINGP ERFORMED BY: [employer] [id number] BY: CLARE [facility] Qswtgw9421 [address] RoadDublin [place] [id number] Glucose Ql (U) Negative Normal Comprehens raysa Internal Medicine Work Phone: Comment on above: PATIENT WAS FASTINGP ERFORMED BY: [employer] [id number] BY: [facility] Tuglsz2107 [address] RoadDublin [place] [id number] Glucose Ql (U) Negative Normal Comprehens raysa Internal Medicine; [facility] Work Phone: Hemoglobin Ql (U) Negative Normal Compreh ensive Internal Medicine Work Phone: Comment on above: PATIENT WAS FASTINGP ERFORMED BY: [employer] [id number] BY: [facility] Nebdyc8603 [address] RoadDublin [place] [id number] Hemoglobin Ql (U) Negative Normal Compreh ensive Internal Medicine; [facility] Work Phone: Ketones Ql (U) Negative Normal Comprehens raysa Internal Medicine Work Phone: Comment on above: PATIENT WAS FASTINGP ERFORMED BY: [employer] [id number] BY: [facility] Iorwlo6200 [address] RoadDublin [place] [id number] Ketones Ql (U) Negative Normal Comprehens raysa Internal Medicine; [facility] Work Phone: Leukocyte esterase Test strip Ql (U) Trace Abnormal [facility] Work Phone: Comment on above: PATIENT WAS FASTINGP ERFORMED BY: [address] [id number] BY: LabAmanda Ville 9405370 Pavon RoadDublin [place] [id number] Microscopic observation LM Nom (Urine sed) See below: Normal [facility] Work Phone: Comment on above: Microscopic was no cated and was performed. PATIENT WAS FASTINGP ERFORMED BY: [address] [id number] BY: CLARE [place] 7555870 Pavon RoadOur Community Hospitalin [place] [id number] Nitrite Ql (U) Negative Normal Comprehens raysa Internal Medicine Work Phone: Comment on above: PATIENT WAS FASTINGP ERFORMED BY: [address] [id number] BY: [facility]6370 [address] RoadOur Community Hospitalin [place] [id number] Nitrite Ql (U) Negative Normal Comprehens raysa Internal Medicine; [facility] Work Phone: pH (U) 6.5 [pH] Normal 5.0-7.5 [facility] Work Phone: Comment on above: PATIENT WAS FASTINGP ERFORMED BY: [address] [id number] BY: [place] [address] [facility]in [place] [id number] Protein Ql (U) Negative Normal Comprehens raysa Internal Medicine Work Phone: Comment on above: PATIENT WAS FASTINGP ERFORMED BY: [address] [id number] BY: OffermaticaTrenton Psychiatric HospitalRdkdcv8946 [facility] [id number] Protein Ql (U) Negative Normal Comprehens raysa Internal Medicine; [facility] Work Phone: Specific gravity Relative Density (U) 1.013 1 Normal 1.005-1.03 0 [facility] Work Phone: Comment on above: PATIENT WAS FASTINGP ERFORMED BY: Offerm[employer]a[address] [id number] BY: OffermaticaTrenton Psychiatric HospitalAzqptr9163 [facility] [id number] Urobilinogen (U) [Mass/Vol] 0.2 mg/dL Normal 0.2-1.0 [facility]; [facility] Work Phone: Urobilinogen Test strip mass conc (U) 0.2 mg/dL Normal 0.2-1.0 Comprehensiv e Internal Medicine Work Phone: Comment on above: PATIENT WAS FASTINGP ERFORMED BY: Offerm[employer]a[address] [id number] BY: OffermaticaTrenton Psychiatric HospitalCmojos4389 [facility] [id number] CBC WITH MANUAL DIFF ([id number]) Ordered By: Manager Internal on 07-12-2018 Basophils #/vol (Bld) 0.1 {x10E3/uL} Normal 0.0-0.2 [facility] Work Phone: Comment on above: PATIENT NOT FASTINGP ERFORMED BY: OffermaticaTrenton Psychiatric HospitalPrfdcu3371 [facility] [id number] Information: NURSE DRAW Basophils (Bld) [#/Vol] 0.1 10*3/uL Normal 0.0-0.2 [facility]; [facility] Work Phone: Basophils Auto #/vol (Bld) 0.1 {x10E3/uL} Normal 0.0-0.2 [facility] Work Phone: Basophils/100 WBC (Bld) 1 % Normal [facility] Work Phone: Comment on above: PATIENT NOT FASTINGP ERFORMED BY: CLARE ChuyYohana ChanelXcubki5887 [facility] [id number] Information: NURSE DRAW Basophils/100 WBC Auto (Bld) 1 % Normal [facility] Work Phone: Eosinophils #/vol (Bld) 0.1 {x10E3/uL} Normal 0.0-0.4 [facility] Work Phone: Comment on above: PATIENT NOT FASTINGP ERFORMED BY: CLARE Cellerant TherapeuticsDarline Oxkksy0241 [facility] [id number] Information: NURSE DRAW Eosinophils (Bld) [#/Vol] 0.1 10*3/uL Normal 0.0-0.4 [facility]; [facility] Work Phone: Eosinophils Auto #/vol (Bld) 0.1 {x10E3/uL} Normal 0.0-0.4 [facility] Work Phone: Eosinophils/100 WBC (Bld) 2 % Normal [facility] Work Phone: Comment on above: PATIENT NOT FASTINGP ERFORMED BY: CLARE ChuyYohana ChanelArqdsx39[address] [id number] Information: NURSE DRAW Eosinophils/100 WBC Auto (Bld) 2 % Normal [facility] Work Phone: Erythrocyte distribution width Auto Ratio (RBC) 13.7 % Normal 12.3-15.4 [facility] Work Phone: Erythrocyte distribution width Ratio (RBC) 13.7 % Normal 12.3-15.4 [facility] Work Phone: Comment on above: PATIENT NOT FASTINGP ERFORMED BY: CLARE [address] [id number] Information: NURSE DRAW Hematocrit Auto Volume Fraction (Bld) 42.2 % Normal 34.0-46.6 [facility] Work Phone: Hematocrit Volume Fraction (Bld) 42.2 % Normal 34.0-46.6 [facility] Work Phone: Comment on above: PATIENT NOT FASTINGP ERFORMED BY: CLARE Vera[address] [id number] Information: NURSE DRAW Hemoglobin mass conc (Bld) 14.1 g/dL Normal 11.1-15.9 [facility] Work Phone: Comment on above: PATIENT NOT FASTINGP ERFORMED BY: CLARE Jim[address] [id number] Information: NURSE DRAW Immature granulocytes #/vol (Bld) 0.0 {x10E3/uL} Normal 0.0-0.1 [facility] Work Phone: Comment on above: PATIENT NOT FASTINGP ERFORMED BY: CLARE [address] [id number] Information: NURSE DRAW Immature granulocytes (Bld) [#/Vol] 0.0 10*3/uL Normal 0.0-0.1 [facility]; [facility] Work Phone: Immature granulocytes/100 WBC (Bld) 0 % Normal [facility] Work Phone: Comment on above: PATIENT NOT FASTINGP ERFORMED BY: CLARE Chanel[address] [id number] Information: NURSE DRAW Lymphocytes #/vol (Bld) 1.1 {x10E3/uL} Normal 0.7-3.1 [facility] Work Phone: Comment on above: PATIENT NOT FASTINGP ERFORMED BY: [address] [id number] Information: NURSE DRAW Lymphocytes (Bld) [#/Vol] 1.1 10*3/uL Normal 0.7-3.1 [facility]; [facility] Work Phone: Lymphocytes Auto #/vol (Bld) 1.1 {x10E3/uL} Normal 0.7-3.1 [facility] Work Phone: Lymphocytes/100 WBC (Bld) 17 % Normal [facility] Work Phone: Comment on above: PATIENT NOT FASTINGP ERFORMED BY: CLARE Chanellin6370 [facility] [id number] Information: NURSE DRAW Lymphocytes/100 WBC Auto (Bld) 17 % Normal [facility] Work Phone: MCH Auto Entitic mass (RBC) 28.3 pg Normal 26.6-33.0 [facility] Work Phone: MCH Entitic mass (RBC) 28.3 pg Normal 26.6-33.0 [facility] Work Phone: Comment on above: PATIENT NOT FASTINGP ERFORMED BY: CLARE [facility] HospitalYohana ChanelWrmeft178[address] [id number] Information: NURSE DRAW MCHC Auto mass conc (RBC) 33.4 g/dL Normal 31.5-35.7 [facility] Work Phone: MCHC mass conc (RBC) 33.4 g/dL Normal 31.5-35.[address] [facility] Internal Medicine Work Phone: Comment on above: PATIENT NOT FASTINGP ERFORMED BY: CLARE Chanel[address] [id number] Information: NURSE DRAW MCV Auto Entitic volume (RBC) 85 fL Normal 79-97 [facility] Work Phone: MCV Entitic volume (RBC) 85 fL Normal 79-97 [facility] Work Phone: Comment on above: PATIENT NOT FASTINGP ERFORMED BY: CLARE [facility] HospitalDarlineRichard Ville 6228770 [facility] [id number] Information: NURSE DRAW Monocytes #/vol (Bld) 0.7 {x10E3/uL} Normal 0.1-0.9 [facility] Work Phone: Comment on above: PATIENT NOT FASTINGP ERFORMED BY: CLARE [facility] HospitalYohana [address] [id number] Information: NURSE DRAW Monocytes (Bld) [#/Vol] 0.7 10*3/uL Normal 0.1-0.9 [facility]; [facility] Work Phone: Monocytes Auto #/vol (Bld) 0.7 {x10E3/uL} Normal 0.1-0.9 [facility] Work Phone: Monocytes/100 WBC (Bld) 11 % Normal [facility] Work Phone: Comment on above: PATIENT NOT FASTINGP ERFORMED BY: CLARE Chanellin6370 [facility] [id number] Information: NURSE DRAW Monocytes/100 WBC Auto (Bld) 11 % Normal [facility] Work Phone: Neutrophils #/vol (Bld) 4.4 {x10E3/uL} Normal 1.4-7.0 [facility] Work Phone: Comment on above: PATIENT NOT FASTINGP ERFORMED BY: CLARE [facility] HospitalYohana ChanelUbimfe3525[address] [id number] Information: NURSE DRAW Neutrophils (Bld) [#/Vol] 4.4 10*3/uL Normal 1.4-7.0 [facility]; [facility] Work Phone: Neutrophils Auto #/vol (Bld) 4.4 {x10E3/uL} Normal 1.4-7.0 [facility] Work Phone: Neutrophils/100 WBC (Bld) 69 % Normal [facility] Work Phone: Comment on above: PATIENT NOT FASTINGP ERFORMED BY: CLARE Chanellin6370 [facility] [id number] Information: NURSE DRAW Neutrophils/100 WBC Auto (Bld) 69 % Normal [facility] Work Phone: Platelets #/vol (Bld) 204 {x10E3/uL} Normal 150-379 [facility] Work Phone: Comment on above: PATIENT NOT FASTINGP ERFORMED BY: CLARE [facility] HospitalYohana ChanelSooxbs7493 [facility] [id number] Information: NURSE DRAW Platelets (Bld) [#/Vol] 204 10*3/uL Normal 150-379 [facility] Internal Medicine; [facility] Work Phone: Platelets Auto #/vol (Bld) 204 {x10E3/uL} Normal 150-379 [facility] Work Phone: RBC #/vol (Bld) 4.99 {x10E6/uL} Normal 3.77-5.[address] [facility] Internal Medicine Work Phone: Comment on above: PATIENT NOT FASTINGP ERFORMED BY: CLARE Chanellin6370 [facility] [id number] Information: NURSE DRAW RBC (Bld) [#/Vol] 4.99 10*6/uL Normal 3.77-5.28 [facility] Internal Medicine; [facility] Work Phone: RBC Auto #/vol (Bld) 4.99 {x10E6/uL} Normal 3.77-5.28 [facility] Internal Medicine Work Phone: WBC #/vol (Bld) 6.3 {x10E3/uL} Normal 3.4-10.8 [facility] Internal Medicine Work Phone: Comment on above: PATIENT NOT FASTINGP ERFORMED BY: CLARE Chanellin6370 [facility] [id number] Information: NURSE DRAW WBC (Bld) [#/Vol] 6.3 10*3/uL Normal 3.4-10.8 [facility] Internal Medicine; [facility] Internal Medicine Work Phone: WBC Auto #/vol (Bld) 6.3 {x10E3/uL} Normal 3.4-10.8 [facility] Internal Medicine Work Phone: MICROALBUMINOrdered By: Syst em Cloth Finisher on 07-12-2018 Albumin DL <= 20 mg/L mass conc (U) 13.7 ug/mL Normal [facility] Internal Medicine Work Phone: Comment on above: PATIENT NOT FASTINGP ERFORMED BY: CLARE [facility] Uvtess4125 [facility] [id number] Albumin/Creatinine mass ratio (U) 19.7 {mg/g_creat} Normal 0.0-30.0 [facility] Work Phone: Comment on above: Normal: 0.0 - 30.0 A lbuminuria: 31.0 - 300.0 Clinical albuminuria: >300.0 PATIENT NOT FASTINGP ERFORMED BY: CLAER LabCopat Qwtbwa3155 Pavon RoadOur Community Hospitalin [place] [id number] Creatinine mass conc (U) 69.6 mg/dL Normal [facility] Work Phone: Comment on above: PATIENT NOT FASTINGP ERFORMED BY: CLARE [facility] Pwfomt4403 Pavon RoadOur Community Hospitalin [place] [id number] Metabolic Panel, Comprehensi ve ([id number])Ordered By: Manager Internal on 07-12-2018 Albumin mass conc 4.1 g/dL Normal 3.5-4.7 Compreh [facility] Internal Medicine Work Phone: Comment on above: PATIENT NOT FASTINGP ERFORMED BY: CLARE [facility] Iuzlgj8335 [address] [facility]in [place] [id number] Albumin/Globulin mass ratio 2.0 {ratio} Normal 1.2-2.2 [facility] Work Phone: Comment on above: PATIENT NOT FASTINGP ERFORMED BY: CLARE [facility] Lmexiy9943 [address] [facility]in [place] [id number] ALP [Catalytic activity/Vol] 77 U/L Normal 39-117 [facility]; [facility] Work Phone: ALP enzyme act/vol 77 [iU]/L Normal 39-117 [facility] Internal Medicine Work Phone: Comment on above: PATIENT NOT FASTINGP ERFORMED BY: CLARE [facility] Elabvr2410 [address] [facility]in [place] [id number] ALT [Catalytic activity/Vol] 19 U/L Normal 0-32 [facility]; [facility] Work Phone: ALT enzyme act/vol 19 [iU]/L Normal 0-32 [facility] Internal Medicine Work Phone: Comment on above: PATIENT NOT FASTINGP ERFORMED BY: CLARE [facility] Nibjpd1848 Pav[address] Roadblin [place] [id number] AST [Catalytic activity/Vol] 21 U/L Normal 0-40 [facility]; [facility] Work Phone: AST enzyme act/vol 21 [iU]/L Normal 0-40 Compre hensive Internal Medicine Work Phone: Comment on above: PATIENT NOT FASTINGP ERFORMED BY: CLARE [place] Holloway6370 [facility] [id number] Bilirubin mass conc 0.3 mg/dL Normal 0.0-1.2 Compr ehensive Internal Medicine Work Phone: Comment on above: PATIENT NOT FASTINGP ERFORMED BY: CLARE [place] Holloway6370 [facility] [id number] Calcium mass conc 9.2 mg/dL Normal 8.7-10.3 Compreh [facility] Internal Medicine Work Phone: Comment on above: PATIENT NOT FASTINGP ERFORMED BY: CLARE [place] Holloway6370 [facility] [id number] Chloride molar conc 107 mmol/L Abnormal 96-106 Compr ensive Internal Medicine Work Phone: Comment on above: PATIENT NOT FASTINGP ERFORMED BY: CLARE [place] Holloway6370 [facility] [id number] CO2 molar conc 22 mmol/L Normal 20-29 Comprehens raysa Internal Medicine Work Phone: Comment on above: PATIENT NOT FASTINGP ERFORMED BY: CLARE [facility] Lczeqt7165 [facility] [id number] Creatinine mass conc 1.19 mg/dL Abnormal 0.57-1.[address] [facility] Work Phone: Comment on above: PATIENT NOT FASTINGP ERFORMED BY: CLARE [facility] Deddgi5851 [facility] [id number] GFR/1.73 sq M predicted among blacks CKD-EPI vol rate/area (S/P/Bld) 50 mL/min/1.73 Abnormal Comprehensiv e Internal Medicine Work Phone: Comment on above: PATIENT NOT FASTINGP ERFORMED BY: [employer] Pporjp2719 [facility] [id number] GFR/1.73 sq M predicted among non-blacks CKD-EPI vol rate/area (S/P/Bld) 43 mL/min/1.73 Abnormal [facility] Work Phone: Comment on above: PATIENT NOT FASTINGP ERFORMED BY: Cellerant TherapeuticsCox South Caynue5851 [facility] [id number] Globulin Calculated mass conc (S) 2.1 g/dL Normal 1.5-4.5 [facility] Work Phone: Globulin mass conc (S) 2.1 g/dL Normal 1.5-4.5 [facility] Work Phone: Comment on above: PATIENT NOT FASTINGP ERFORMED BY: Offerm[employer]a Bsczwk0299 [facility] [id number] Glucose mass conc 108 mg/dL Abnormal 65-99 Compreh ensive Internal Medicine Work Phone: Comment on above: Specimen received in contact with cells. No visible hemolysispresent. However GLUC may be decreased and K increased. Clinicalcorrelation indicated. PATIENT NOT FASTINGP ERFORMED BY: Offerm[employer]a Guzkxb8491 [facility] GreenstackTransylvania [facility] Hospital [id number] Potassium molar conc 4.1 mmol/L Normal 3.5-5.2 Comp rehensive Internal Medicine Work Phone: Comment on above: Specimen received in contact with cells. No visible hemolysispresent. However GLUC may be decreased and K increased. Clinicalcorrelation indicated. PATIENT NOT FASTINGP ERFORMED BY: Offerm[employer]a Ymocqm1742 [facility] [id number] Protein mass conc 6.2 g/dL Normal 6.0-8.5 Compreh ensive Internal Medicine Work Phone: Comment on above: PATIENT NOT FASTINGP ERFORMED BY: Offerm[employer]a Kokepc7022 [facility] [id number] Sodium molar conc 145 mmol/L Abnormal 134-144 Compreh ensive Internal Medicine Work Phone: Comment on above: PATIENT NOT FASTINGP ERFORMED BY: CLARE [facility] Fvtjqr9384 [address] Roadblin [place] [id number] Urea nitrogen mass conc 16 mg/dL Normal 8-27 [facility] Work Phone: Comment on above: PATIENT NOT FASTINGP ERFORMED BY: CLARE [facility] Zkqnpv3048 Pavon RoadOur Community Hospitalin [place] [id number] Urea nitrogen/Creatinine mass ratio 13 mg/mg Normal 12-28 [facility] Work Phone: Comment on above: PATIENT NOT FASTINGP ERFORMED BY: CLARE [facility] Pozqgh6028 [address] [facility]in [place] [id number] Microscopic ExaminationOrder ed By: Manager Internal on 07-12-2018 Bacteria LM.HPF #/area (Urine sed) Few Normal [facility] Work Phone: Comment on above: PATIENT NOT FASTINGP ERFORMED BY: CLARE LabDarline Yojcmr9820 [address] [facility] [id number] Epithelial cells LM.HPF #/area (Urine sed) 0-10 Normal 0 - 10 [facility] Work Phone: Comment on above: PATIENT NOT FASTINGP ERFORMED BY: CLARE LabYohana ChanelXvwlwa7334 [address] [facility]in [place] [id number] Mucus LM Ql (Urine sed) Present Normal [facility] Work Phone: Mucus Ql (Urine sed) Present Normal Comp rehensive Internal Medicine Work Phone: Comment on above: PATIENT NOT FASTINGP ERFORMED BY: CLARE [facility] Vvtlhw8013 Pavon RoadOur Community Hospitalin [place] [id number] RBC LM.HPF #/area (Urine sed) 0-2 Normal 0 - 2 [facility] Work Phone: Comment on above: PATIENT NOT FASTINGP ERFORMED BY: CLARE [facility] Uzmdbe7674 [address] [facility]in [place] [id number] WBC LM.HPF #/area (Urine sed) /[HPF] Abnormal 0 - 5 [facility] Work Phone: Comment on above: PATIENT NOT FASTINGP ERFORMED BY: CLARE LabYohana ChanelMuqkkz8248 [address] RoadDublin [place] [id number] URINALYSIS ([id number])Ordered By : Manager Internal on 07-12-2018 Appearance Nom (U) Clear Normal Compre hensive Internal Medicine Work Phone: Comment on above: PATIENT NOT FASTINGP ERFORMED BY: CLARE ChuyYohana ChanelCijobp1119 [address] RoadDublin [place] [id number] Bilirubin Ql (U) Negative Normal Comprehe nsive Internal Medicine Work Phone: Comment on above: PATIENT NOT FASTINGP ERFORMED BY: CLARE LabYohana ChanelYxfyfd7440 [address] RoadDublin [place] [id number] Bilirubin Ql (U) Negative Normal Comprehe nsive Internal Medicine; [facility] Work Phone: Color Nom (U) Yellow Normal Comprehensi ve Internal Medicine Work Phone: Comment on above: PATIENT NOT FASTINGP ERFORMED BY: CLARE Chanellin6370 [address] RoadDublin [place] [id number] Glucose Ql (U) Negative Normal Comprehens raysa Internal Medicine Work Phone: Comment on above: PATIENT NOT FASTINGP ERFORMED BY: CLARE Chanellin6370 [address] RoadDublin [place] [id number] Glucose Ql (U) Negative Normal Comprehens raysa Internal Medicine; [facility] Work Phone: Hemoglobin Ql (U) Negative Normal Compreh ensive Internal Medicine Work Phone: Comment on above: PATIENT NOT FASTINGP ERFORMED BY: CLARE LabYohana ChanelHysgkm1400 [address] RoadDublin [place] [id number] Hemoglobin Ql (U) Negative Normal Compreh ensive Internal Medicine; [facility] Work Phone: Hemoglobin Test strip Ql (U) Negative Normal [facility] Work Phone: Ketones Ql (U) Negative Normal Comprehens raysa Internal Medicine Work Phone: Comment on above: PATIENT NOT FASTINGP ERFORMED BY: CLARE LabYohana ChanelAgfqik3449 [address] RoadDublin [place] [id number] Ketones Ql (U) Negative Normal Comprehens raysa Internal Medicine; [facility] Work Phone: Leukocyte esterase Test strip Ql (U) 3+ Abnormal [facility] Work Phone: Comment on above: PATIENT NOT FASTINGP ERFORMED BY: CLARE [facility] Vltfyl9346 [address] RoadDublin [place] [id number] Microscopic observation LM Nom (Urine sed) See below: Normal [facility] Work Phone: Comment on above: Microscopic was no cated and was performed. PATIENT NOT FASTINGP ERFORMED BY: CLARE [facility] Uzlsbr9296 Pavon RoadDublin [place] [id number] Nitrite Ql (U) Positive Abnormal Comprehens raysa Internal Medicine Work Phone: Comment on above: PATIENT NOT FASTINGP ERFORMED BY: CLARE [facility] Shrdog0772 Pavon RoadDublin [place] [id number] Nitrite Ql (U) Positive Abnormal Comprehens [facility]; [facility] Work Phone: Nitrite Test strip Ql (U) Positive Abnormal [facility] Work Phone: pH (U) 6.5 [pH] Normal 5.0-7.5 [facility] Work Phone: Comment on above: PATIENT NOT FASTINGP ERFORMED BY: CLARE [facility] Rdifhb3598 Pavon RoadDublin [place] [id number] pH Test strip (U) 6.5 [pH] Normal 5.0-7.5 Compreh ensive Internal Medicine Work Phone: Protein Ql (U) Negative Normal Comprehens [facility] Work Phone: Comment on above: PATIENT NOT FASTINGP ERFORMED BY: CLARE [facility] Kifvof2057 Pavon RoadDublin [place] [id number] Protein Ql (U) Negative Normal Comprehens [facility]; [facility] Work Phone: Protein Test strip Ql (U) Negative Normal [facility] Work Phone: Specific gravity Relative Density (U) 1.011 1 Normal 1.005-1.03 0 [facility] Work Phone: Comment on above: PATIENT NOT FASTINGP ERFORMED BY: CLARE [facility] Nzefri8185 [address] AcunoteUNC Health [facility] Ridge [id number] Urobilinogen (U) [Mass/Vol] 0.2 mg/dL Normal 0.2-1.0 [facility]; [facility] Work Phone: Urobilinogen Test strip mass conc (U) 0.2 mg/dL Normal 0.2-1.0 Comprehensiv e Internal Medicine Work Phone: Comment on above: PATIENT NOT FASTINGP ERFORMED BY: CLARE [facility] Zewogo0545 [facility] [id number] URINE VALENTIN CULTURE-IDENTIFICA [place] (30547)Ordered By: Manager Internal on 07-12-2018 Bacteria identified Cx Nom (U) Escherichia coli Abnormal [facility] Work Phone: Comment on above: Greater than 100,000 colony forming units per mLCefazolin <=4 ug/mLCefazolin with an SAAMNTHA <=16 predicts susceptibility to the oral agentscefaclor, cefdinir, cefpodoxime, cefprozil, cefuroxime, cephalexin,and loracarbef when used for therapy of uncomplicated urinary tractinfections due to E. coli, Klebsiella pneumoniae, and Proteusmirabilis. PATIENT NOT FASTINGP ERFORMED BY: CLARE LabSkyVu Entertainmentrp Wsahvi2040 [facility]alUNC [facility] [id number] Information: SRC:UC Bacteria identified Cx Nom (U) Citrobacter youngae Abnormal Comprehensiv e Internal Medicine Work Phone: Comment on above: Greater than 100,000 colony forming units per mL PATIENT NOT FASTINGP ERFORMED BY: CLARE [facility] Blekbf1551 [address] AcunoteUNC Health Blue Ridge [id number] Information: SRC:UC Bacteria identified Cx Nom (U) Final report Abnormal [facility] Work Phone: Comment on above: PATIENT NOT FASTINGP ERFORMED BY: CLARE [facility] Gwzztv3319 [address] GreenstackTransylvania Regional Hospital [id number] Information: SRC:UC Other Antibiotic susc [facility] Normal [facility] Work Phone: Comment on above: S = Susceptible; I = Intermediate; R = Resistant P = Positive; N = Negative MICS are expressed in micrograms per mL Antibiotic RSLT#1 RSLT#2 RSLT#3 RSLT#4Amoxicillin/Clavulanic Acid R SAmpicillin SCefazolin RCefepime SCeftriaxone SCefuroxime R SCiprofloxacin S SErtapenem SGentamicin S SImipenem S SLevofloxacin SMeropenem S SNitrofurantoin S SPiperacillin/Tazobactam STetracycline S STobramycin S STrimethoprim/Sulfa S S PATIENT NOT FASTINGP ERFORMED BY: CLARE [facility] Ricvio3886 [address] [facility] [id number] Information: SRC: FERRITIN ([id number])Ordered By: Manager Internal on 03-04-2018 Ferritin mass conc 186 ng/mL Abnormal 15-150 Compre [facility] Work Phone: Comment on above: re check before next f/u; PATIENT NOT FASTINGPERFORMED BY: MARY [facility] IIU1131 TW [facility] [id number] BY: CLARE [facility] Khwrup5180 [facility] [facility] [id number] HFE GENE (06042)Ordered By: Manager Internal on 03-04-2018 HFE gene targeted mutation analysis Molgen Albin (Bld/Tiss) NEGHH1 Normal [facility] Work Phone: Comment on above: NO MUTATION IDENTIFI ED .Interpretation:This patient's sample was analyzed for the hereditaryhemochromatosis (HH) mutations C282Y, H63D, S65C. Nomutation was identified. The mutations analyzed by LabCorpare most common in the population, and up to 90%of affected Caucasians will have a positive test result.Because this panel does not identify rare HH mutations orHH mutations found in other ethnic groups, there are asmall number of people who may have a negative test but mayactually be affected. The diagnosis of HH should includeclinical findings and other test results such astransferrin-iron saturation and/or serum ferritin studiesand/or liver biopsy. If this patient has a history of HH,in many cases a specific carrier risk can be determinedbased on this negative result.Methodology:DNA Analysis of the HFE gene was performed by PCRamplification followed by restriction enzyme digestionanalyses. .Reference:Wendi JS and Chuckie PATE. (2000). Ame Test 4:97-101.Carlito et al. (1999). AM J Prev Med 16:134-140.Moisés Johnson (2002). Lancet 360(1973):1673-70.Manuela Infante al. (2002). Blood Cells, Molecules. andDiseases. 29(3):418-432.Jeanette Smith et al. (2003). Ame Med. 5(1):1-8.Carlito SAN et al. (2003). Ame Med. 5(4):304-10.This test was developed and its performance characteristics determinedby [employer]. It has not been cleared or approved by the Food and DrugAdministration. .Genetic counselors are available for health care providers to discussresults at [phone]. .Dave Guy, PhD, Vibha Chris, PhD, Theodora Starr MSydneyS., PhD, Erin Albright, PhD, Ruslan Vaughn, PhD, Kika Victor, PhD, [facility] re check before next f/u; PATIENT NOT FASTINGPERFORMED BY: LabSkyVu Entertainment FFM2260 [facility] [id number] BY: OffermaticaTrenton Psychiatric HospitalExgmzz5557 [facility] [id number] REYMUNDO (ANTINUCLEAR ANTIBODY) ( [id number])Ordered By: Manager Internal on 01-19-2018 Nuclear Ab Ql (S) Negative Normal Compreh ensive Internal Medicine Work Phone: Comment on above: PATIENT NOT FASTINGP ERFORMED BY: OffermaticaTrenton Psychiatric HospitalUcwqhz1578 [facility] [id number] BY: [employer] [id number] Nuclear Ab Ql (S) Negative Normal Compreh ensive Internal Medicine; [facility] Work Phone: C-REACTIVE PROTEIN ([id number])Or dered By: Manager Internal on 01-19-2018 CRP mass conc 4.2 mg/L Normal 0.0-4.9 Comprehensi Internal Medicine Work Phone: Comment on above: PATIENT NOT FASTINGP ERFORMED BY: Ecometrica LabSkyVu Entertainmentrp Wgtppf9940 Pavon Roadblin [place] [id number] BY: Offermatica[address] [id number] CCP ANTIBODY ([id number])Ordered By: Manager Internal on 01-19-2018 Cyclic citrullinated peptide IgA+IgG IA Qn 5 {units} Normal 0-19 [facility] Work Phone: Comment on above: Negative <20 Weak po sitive 20 - 39 Moderate positive 40 - 59 Strong positive >59 PATIENT NOT FASTINGP ERFORMED BY: [employer] Lab6APT Jhmnoc3000 [address] RoadOur Community Hospitalin [place] [id number] BY: [employer] [id number] FERRITIN (08650)Ordered By: Manager Internal on 01-19-2018 Ferritin mass conc 210 ng/mL Abnormal 15-150 [facility] Work Phone: Comment on above: PATIENT NOT FASTINGP ERFORMED BY: Ecom[employer]a LabSkyVu Entertainmentrp Coqfea0550 [address] GreenstackTransylvania Regional Hospital [id number] BY: Offermatica[address] [id number] PARATHORMONE (35505)Ordered By: Manager Internal on 01-19-2018 Parathyrin.intact mass conc 28 pg/mL Normal 15-65 [facility] Internal Medicine Work Phone: Comment on above: PATIENT NOT FASTINGP ERFORMED BY: CB [facility] Akotnd3165 Pavon Roadblin [place] [id number] BY: Offermatica[address] [id number] RHEUMATOID FACTOR-QUANT (864 31)Ordered By: Manager Internal on 01-19-2018 Rheumatoid factor Qn [IU]/mL Normal 0.0-13.9 Comp rehensive Internal Medicine Work Phone: Comment on above: PATIENT NOT FASTINGP ERFORMED BY: CLARE [facility] Ggttvs5108 [address] [facility] Centerbl[facility] [place] [id number] BY: LabCo[address] [id number] Rheumatoid factor Qn [IU]/mL Normal 0.0-13.9 Comp rehensive Internal Medicine; [facility] Work Phone: SED RATE ERYTHROCYTE (31516) Ordered By: Manager Internal on 01-19-2018 ESR Velocity (Bld) 2 mm/h Normal 0-40 Compre [facility] Work Phone: Comment on above: PATIENT NOT FASTINGP ERFORMED BY: CLARE [facility] Xrpxhr3774 [facility] [id number] BY: Lab[address] [id number] SPEP ([id number])Ordered By: Syst em Cloth Finisher on 01-19-2018 Albumin mass conc 3.8 g/dL Normal 2.9-4.4 Compreh [facility] westive Internal Medicine Work Phone: Comment on above: PATIENT NOT FASTINGP ERFORMED BY: CLARE [facility] Pideno8041 [facility] [id number] BY: Lab[address] [id number] Albumin/Globulin mass ratio 1.5 {ratio} Normal 0.7-1.7 [facility] Work Phone: Comment on above: PATIENT NOT FASTINGP ERFORMED BY: CB [facility] Qtidom7129 [facility] [id number] BY: Lab[address] [id number] Alpha 1 globulin Elph mass conc 0.2 g/dL Normal 0.0-0.4 [facility] Work Phone: Comment on above: PATIENT NOT FASTINGP ERFORMED BY: CB [facility] Qbqilc5882 [facility] [id number] BY: [address] [id number] Alpha 2 globulin Elph mass conc 0.7 g/dL Normal 0.4-1.0 [facility] Work Phone: Comment on above: PATIENT NOT FASTINGP ERFORMED BY: LabCoTrenton Psychiatric HospitalUnhtaq7531 [facility] [id number] BY: [address] [id number] Beta globulin Elph mass conc 0.9 g/dL Normal 0.7-1.3 [facility] Work Phone: Comment on above: PATIENT NOT FASTINGP ERFORMED BY: LabSkyVu EntertainmentTrenton Psychiatric HospitalQxrlie8316 [facility] [id number] BY: [address] [id number] Gamma globulin Elph mass conc 0.7 g/dL Normal 0.4-1.8 [facility] Work Phone: Comment on above: PATIENT NOT FASTINGP ERFORMED BY: LabCoRichard [place] 6228770 [facility] [id number] BY: [address] [id number] Globulin Calculated mass conc (S) 2.5 g/dL Normal 2.2-3.9 [facility] Work Phone: Globulin mass conc (S) 2.5 g/dL Normal 2.2-3.9 [facility] Work Phone: Comment on above: PATIENT NOT FASTINGP ERFORMED BY: LabCoRichard [place] 6228770 [facility] [id number] BY: [address] [id number] Laboratory comment Albin (Report) SPRCS Normal [facility] Work Phone: Comment on above: Protein electrophore sis scan will follow via computer, mail, orcourier delivery. PATIENT NOT FASTINGP ERFORMED BY: [facility] Gnfnkt5243 [facility] [id number] BY: [address] [id number] Laboratory report . Normal Compreh ensive Internal Medicine Work Phone: Comment on above: PATIENT NOT FASTINGP ERFORMED BY: LabCo Ocaets1678 [facility] [id number] BY: [address] [id number] Protein mass conc 6.3 g/dL Normal 6.0-8.5 Compreh ensive Internal Medicine Work Phone: Comment on above: PATIENT NOT FASTINGP ERFORMED BY: [facility] Uwswia7781 [facility] [id number] BY: [address] [id number] Protein.monoclonal Elph mass conc Not Observed Normal [facility] Work Phone: Comment on above: PATIENT NOT FASTINGP ERFORMED BY: LabAmanda Ville 9405370 [facility] [id number] BY: [address] [id number] CBC With Differential/Platel etOrdered By: Manager Internal on 01-10-2018 Basophils #/vol (Bld) 0.0 {x10E3/uL} Normal 0.0-0.2 [facility] Work Phone: Comment on above: PATIENT WAS FASTINGP ERFORMED BY: [address] [id number] BY: [place] 2899770 [facility] [id number] Basophils Auto #/vol (Bld) 0.0 {x10E3/uL} Normal 0.0-0.2 [facility] Work Phone: Basophils/100 WBC (Bld) 1 % Normal [facility] Work Phone: Comment on above: PATIENT WAS FASTINGP ERFORMED BY: Foodist [address] [id number] BY: CLARE OffermaticaRichard [place] 6228770 [facility] [id number] Basophils/100 WBC Auto (Bld) 1 % Normal [facility] Work Phone: Eosinophils #/vol (Bld) 0.2 {x10E3/uL} Normal 0.0-0.4 [facility] Work Phone: Comment on above: PATIENT WAS FASTINGP ERFORMED BY: Foodist [address] [id number] BY: Hacker Schoollin6370 [facility] [id number] Eosinophils Auto #/vol (Bld) 0.2 {x10E3/uL} Normal 0.0-0.4 [facility] Work Phone: Eosinophils/100 WBC (Bld) 3 % Normal [facility] Work Phone: Comment on above: PATIENT WAS FASTINGP ERFORMED BY: HeartThis[address] [id number] BY: CLARE OffermaticaRichard [place] 6228770 [facility] [id number] Eosinophils/100 WBC Auto (Bld) 3 % Normal [facility] Work Phone: Erythrocyte distribution width Auto Ratio (RBC) 14.5 % Normal 12.3-15.4 [facility] Work Phone: Erythrocyte distribution width Ratio (RBC) 14.5 % Normal 12.3-15.4 [facility] Work Phone: Comment on above: PATIENT WAS FASTINGP ERFORMED BY: Foodist [address] [id number] BY: OffermaticaRichard [place] 6228770 [facility] [id number] Hematocrit Auto Volume Fraction (Bld) 44.3 % Normal 34.0-46.6 [facility] Work Phone: Hematocrit Volume Fraction (Bld) 44.3 % Normal 34.0-46.6 [facility] Work Phone: Comment on above: PATIENT WAS FASTINGP ERFORMED BY: Lab[address] [id number] BY: LabCoMimbres Memorial HospitalXiieif8964 [facility] [id number] Hemoglobin mass conc (Bld) 14.7 g/dL Normal 11.1-15.9 [facility] Work Phone: Comment on above: PATIENT WAS FASTINGP ERFORMED BY: [address] [id number] BY: LabCoRichard [place] 6228770 [facility] [id number] Immature granulocytes #/vol (Bld) 0.0 {x10E3/uL} Normal 0.0-0.1 [facility] Work Phone: Comment on above: PATIENT WAS FASTINGP ERFORMED BY: [address] [id number] BY: LabAmanda [place] 9405370 [facility] [id number] Immature granulocytes/100 WBC (Bld) 0 % Normal [facility] Work Phone: Comment on above: PATIENT WAS FASTINGP ERFORMED BY: [address] [id number] BY: [place] 2899770 [facility] [id number] Lymphocytes #/vol (Bld) 1.1 {x10E3/uL} Normal 0.7-3.1 [facility] Work Phone: Comment on above: PATIENT WAS FASTINGP ERFORMED BY: [address] [id number] BY: LabCo Qlzeua1458 [address] [facility]in [place] [id number] Lymphocytes Auto #/vol (Bld) 1.1 {x10E3/uL} Normal 0.7-3.1 [facility] Work Phone: Lymphocytes/100 WBC (Bld) 16 % Normal [facility] Work Phone: Comment on above: PATIENT WAS FASTINGP ERFORMED BY: Offermatica[address] [id number] BY: CLARE OffermaticaRichard [place] 6228770 [facility] [id number] Lymphocytes/100 WBC Auto (Bld) 16 % Normal [facility] Work Phone: MCH Auto Entitic mass (RBC) 28.6 pg Normal 26.6-33.0 [facility] Work Phone: MCH Entitic mass (RBC) 28.6 pg Normal 26.6-33.0 [facility] Work Phone: Comment on above: PATIENT WAS FASTINGP ERFORMED BY: Offermatica[address] [id number] BY: OffermaticaRichard [place] 6228770 [facility] [id number] MCHC Auto mass conc (RBC) 33.2 g/dL Normal 31.5-35.7 [facility] Work Phone: MCHC mass conc (RBC) 33.2 g/dL Normal 31.5-35.7 Comp rehensive Internal Medicine Work Phone: Comment on above: PATIENT WAS FASTINGP ERFORMED BY: Offermatica[address] [id number] BY: OffermaticaTrenton Psychiatric HospitalRgildx6691 [facility] [id number] MCV Auto Entitic volume (RBC) 86 fL Normal 79-97 [facility] Work Phone: MCV Entitic volume (RBC) 86 fL Normal 79-97 [facility] Work Phone: Comment on above: PATIENT WAS FASTINGP ERFORMED BY: Offermatica[address] [id number] BY: OffermaticaTrenton Psychiatric HospitalRkyfvz6143 [facility] [id number] Monocytes #/vol (Bld) 0.7 {x10E3/uL} Normal 0.1-0.9 [facility] Work Phone: Comment on above: PATIENT WAS FASTINGP ERFORMED BY: Offermatica[address] [id number] BY: OffermaticaRichard [place] 6228770 [facility] [id number] Monocytes Auto #/vol (Bld) 0.7 {x10E3/uL} Normal 0.1-0.9 [facility] Work Phone: Monocytes/100 WBC (Bld) 10 % Normal [facility] Work Phone: Comment on above: PATIENT WAS FASTINGP ERFORMED BY: Offermatica[address] [id number] BY: OffermaticaRichard [place] 6228770 [facility] [id number] Monocytes/100 WBC Auto (Bld) 10 % Normal [facility] Work Phone: Neutrophils #/vol (Bld) 5.1 {x10E3/uL} Normal 1.4-7.0 [facility] Work Phone: Comment on above: PATIENT WAS FASTINGP ERFORMED BY: Offermatica[address] [id number] BY: OffermaticaRichard [place] 6228770 [facility] [id number] Neutrophils Auto #/vol (Bld) 5.1 {x10E3/uL} Normal 1.4-7.0 [facility] Work Phone: Neutrophils/100 WBC (Bld) 70 % Normal [facility] Work Phone: Comment on above: PATIENT WAS FASTINGP ERFORMED BY: Offermatica[address] [id number] BY: OffermaticaRichard [place] 6228770 [facility] [id number] Neutrophils/100 WBC Auto (Bld) 70 % Normal [facility] Work Phone: Platelets #/vol (Bld) 174 {x10E3/uL} Normal 150-379 [facility] Work Phone: Comment on above: PATIENT WAS FASTINGP ERFORMED BY: Offermatica Qmdkrvpoao[address] [id number] BY: Offermatica Wppjpt[address] [place] [address] [id number] Platelets Auto #/vol (Bld) 174 {x10E3/uL} Normal 150-379 [facility] Work Phone: RBC #/vol (Bld) 5.14 {x10E6/uL} Normal 3.77-5.[address] [facility] Internal Medicine Work Phone: Comment on above: PATIENT WAS FASTINGP ERFORMED BY: Offermatica[address] [id number] BY: OffermaticaRichard [place] 6228770 [facility] [id number] RBC Auto #/vol (Bld) 5.14 {x10E6/uL} Normal 3.77-5.28 [facility] Work Phone: WBC #/vol (Bld) 7.2 {x10E3/uL} Normal 3.4-10.8 [facility] Internal Medicine Work Phone: Comment on above: PATIENT WAS FASTINGP ERFORMED BY: Offermatica[address] [id number] BY: OffermaticaRichard [place] 6228770 [facility] [id number] WBC Auto #/vol (Bld) 7.2 {x10E3/uL} Normal 3.4-10.8 [facility] Work Phone: LIPOPROTEIN, BLD, BY NMR (45 575)Ordered By: Manager Internal on 01-10-2018 Cholesterol in HDL mass conc 50 mg/dL Normal [facility] Work Phone: Comment on above: PATIENT WAS FASTINGP ERFORMED BY: Foodist [address] [id number] BY: Hacker Schoollin6370 [facility] [id number] Cholesterol in LDL mass conc 92 mg/dL Normal 0-99 [facility] Work Phone: Comment on above: . Optimal < 100 Abov e optimal 100 - 129 Borderline 130 - 159 High 160 - 189 Very high > 189 .LDL-C is inaccurate if patient is non-fasting. PATIENT WAS FASTINGP ERFORMED BY: Foodist [address] [id number] BY: Timeliner70 [facility] [id number] Cholesterol mass conc 168 mg/dL Normal 100-199 [facility] Work Phone: Comment on above: PATIENT WAS FASTINGP ERFORMED BY: HeartThis[address] [id number] BY: Timeliner70 [facility] [id number] Lipoprotein.alpha molar conc 36.3 umol/L Normal [facility] Work Phone: Comment on above: PATIENT WAS FASTINGP ERFORMED BY: Foodist [address] [id number] BY: Hacker Schoollin6370 [facility] [id number] Lipoprotein.beta.sub particle Entitic length 20.5 nm Normal [facility] Work Phone: Comment on above: INTERPRETATIVE INFORMATION PARTICLE CONCENTRATION AND SIZE <--Lower CVD Risk Higher CVD Risk--> LDL AND HDL PARTICLES Percentile in Reference Population HDL-P (total) High 75th 50th 25th Low >34.9 34.9 30.5 26.7 <26.7 . Small LDL-P Low 25th 50th 75th High <117 117 527 839 >839 . LDL Size <-Large (Pattern A)-> <-Small (Pattern B)-> 23.0 20.6 20.5 19.0 Small LDL-P and LDL Size are associated with CVD risk, but not afterLDL-P is taken into account. .These assays were developed and their performance characteristicsdetermined by [employer]. These assays have not been cleared by [place] Food and Drug Administration. The clinical utility of theselaboratory values have not been fully established. PATIENT WAS FASTINGP ERFORMED BY: HeartThis[address] [id number] BY: Timeliner70 [facility] [id number] Lipoprotein.beta.sub particle molar conc 1309 nmol/L Abnormal Comprehensiv e Internal Medicine Work Phone: Comment on above: Low < 1000 Moderate 1000 - 1299 Borderline-High 1300 - 1599 High 1600 - 2000 Very High > 2000 PATIENT WAS FASTINGP ERFORMED BY: Foodist [address] [id number] BY: Timeliner70 [facility] [id number] Lipoprotein.beta.sub particle.small molar conc 818 nmol/L Abnormal [facility] Work Phone: Comment on above: PATIENT WAS FASTINGP ERFORMED BY: HeartThis[address] [id number] BY: Timeliner70 [facility] [id number] Triglyceride mass conc 131 mg/dL Normal 0-149 [facility] Work Phone: Comment on above: PATIENT WAS FASTINGP ERFORMED BY: HeartThis[address] [id number] BY: LabCo Bygljc1390 Pavon RoadDublin [place] [id number] METABOLIC PANEL, COMPREHENSI VE ([id number])Ordered By: Manager Internal on 01-10-2018 Albumin mass conc 4.5 g/dL Normal 3.5-4.7 Compreh [facility] Internal Medicine Work Phone: Comment on above: PATIENT WAS FASTINGP ERFORMED BY: LabSkyVu Entertainment[address] [id number] BY: LabCo Zldppi0282 Pavon RoadDuin [place] [id number] Albumin/Globulin mass ratio 2.0 {ratio} Normal 1.2-2.2 [facility] Work Phone: Comment on above: PATIENT WAS FASTINGP ERFORMED BY: Offermatica[address] [id number] BY: [employer]Sky[employer] Phkxwx1637 Pavon RoadOur Community Hospitalin [place] [id number] ALP [Catalytic activity/Vol] 71 U/L Normal 39-117 [facility]; [facility] Work Phone: ALP enzyme act/vol 71 [iU]/L Normal 39-117 [facility] Internal Medicine Work Phone: Comment on above: PATIENT WAS FASTINGP ERFORMED BY: Offermatica[address] [id number] BY: LabCo Evjmgy23[address] [facility] Hospitalin [place] [id number] ALT [Catalytic activity/Vol] 18 U/L Normal 0-32 [facility]; [facility] Work Phone: ALT enzyme act/vol 18 [iU]/L Normal 0-32 [facility] Internal Medicine Work Phone: Comment on above: PATIENT WAS FASTINGP ERFORMED BY: Offermatica[address] [id number] BY: LabCo Kwrjvx9864 Pavon RoadDublin [place] [id number] AST [Catalytic activity/Vol] 18 U/L Normal 0-40 [facility]; [facility] Work Phone: AST enzyme act/vol 18 [iU]/L Normal 0-40 Compre hensive Internal Medicine Work Phone: Comment on above: PATIENT WAS FASTINGP ERFORMED BY: [facility] [address] [id number] BY: CB [facility] Zazelj6361 Pavon RoadDublin [place] [id number] Bilirubin mass conc 0.4 mg/dL Normal 0.0-1.2 Compr ensive Internal Medicine Work Phone: Comment on above: PATIENT WAS FASTINGP ERFORMED BY: [facility] [address] [id number] BY: CLARE [facility] Yktlfo0451 Pavon RoadDublin [place] [id number] Calcium mass conc 9.9 mg/dL Normal 8.7-10.3 Compreh ensive Internal Medicine Work Phone: Comment on above: PATIENT WAS FASTINGP ERFORMED BY: LabSkyVu Entertainment[address] [id number] BY: CLARE [facility] Lvoosi6668 Pavon RoadDublin [place] [id number] Chloride molar conc 104 mmol/L Normal 96-106 [facility] Internal [facility] Work Phone: Comment on above: PATIENT WAS FASTINGP ERFORMED BY: [facility] [address] [id number] BY: CB [facility] Ounpfi0320 [address] RoadDublin [place] [id number] CO2 molar conc 25 mmol/L Normal 18-29 Comprehens raysa Internal Medicine Work Phone: Comment on above: PATIENT WAS FASTINGP ERFORMED BY: [facility] [address] [id number] BY: CB [facility] Vzfrdb7514 [address] RoadDublin [place] [id number] Creatinine mass conc 1.30 mg/dL Abnormal 0.57-1.00 Comp rehensive Internal Medicine Work Phone: Comment on above: PATIENT WAS FASTINGP ERFORMED BY: Offermatica[address] [id number] BY: CLARE [facility]Core[facility]6370 [facility] [id number] GFR/1.73 sq M predicted among blacks CKD-EPI vol rate/area (S/P/Bld) 45 mL/min/1.73 Abnormal Comprehensiv e Internal Medicine Work Phone: Comment on above: PATIENT WAS FASTINGP ERFORMED BY: Offermatica[address] [id number] BY: CLARE [facility] Qmmzuy7427 [facility] [id number] GFR/1.73 sq M predicted among non-blacks CKD-EPI vol rate/area (S/P/Bld) 39 mL/min/1.73 Abnormal [facility] Work Phone: Comment on above: PATIENT WAS FASTINGP ERFORMED BY: Offermatica[address] [id number] BY: CLARE LabAmanda V[place] 9405370 [facility] [id number] Globulin Calculated mass conc (S) 2.2 g/dL Normal 1.5-4.5 [facility] Work Phone: Globulin mass conc (S) 2.2 g/dL Normal 1.5-4.5 [facility] Work Phone: Comment on above: PATIENT WAS FASTINGP ERFORMED BY: Offermatica[address] [id number] BY: CLARE LabCoRichard Ville 6228770 [facility] [id number] Glucose mass conc 94 mg/dL Normal 65-99 Compreh ensive Internal Medicine Work Phone: Comment on above: PATIENT WAS FASTINGP ERFORMED BY: Offermatica[address] [id number] BY: CLARE VeraCo Juseuh0924 [address] RoadDublin [place] [id number] Potassium molar conc 4.6 mmol/L Normal 3.5-5.2 Comp rehensive Internal Medicine Work Phone: Comment on above: PATIENT WAS FASTINGP ERFORMED BY: Lab[address] [id number] BY: [facility] Tpqctr6153 Pav[address] Roadblin [place] [id number] Protein mass conc 6.7 g/dL Normal 6.0-8.5 Compreh ensive Internal Medicine Work Phone: Comment on above: PATIENT WAS FASTINGP ERFORMED BY: Lab[address] [id number] BY: CLARE LabCoTrenton Psychiatric HospitalVahnbs2297 [address] RoadOur Community Hospitalin [place] [id number] Sodium molar conc 144 mmol/L Normal 134-144 Compreh ensive Internal Medicine Work Phone: Comment on above: PATIENT WAS FASTINGP ERFORMED BY: Lab[address] [id number] BY: LabCoTrenton Psychiatric HospitalPioagn0291 [facility] [id number] Urea nitrogen mass conc 21 mg/dL Normal 8-27 [facility] Work Phone: Comment on above: PATIENT WAS FASTINGP ERFORMED BY: Lab[address] [id number] BY: LabCorewell Health Blodgett Hospital6370 [address] [facility] Hospitalin [place] [id number] Urea nitrogen/Creatinine mass ratio 16 mg/mg Normal 12-28 [facility] Work Phone: Comment on above: PATIENT WAS FASTINGP ERFORMED BY: Lab[address] [id number] BY: LabCo Pidkiw3600 [address] RoadDublin [place] [id number] CBC W/AUTO DIFF WBC (71633)O rdered By: Manager Internal on 2017 Basophils #/vol (Bld) 0.1 {x10E3/uL} Normal 0.0-0.2 [facility] Work Phone: Comment on above: now and in six month s (approximately); PATIENT NOT FASTINGPERFORMED BY: Offermatica Ktkgik2012 [facility] [id number] Basophils (Bld) [#/Vol] 0.1 10*3/uL Normal 0.0-0.2 [facility]; [facility] Work Phone: Basophils Auto #/vol (Bld) 0.1 {x10E3/uL} Normal 0.0-0.2 [facility] Work Phone: Basophils/100 WBC (Bld) 1 % Normal [facility] Work Phone: Comment on above: now and in six month s (approximately); PATIENT NOT FASTINGPERFORMED BY: Offermatica Mivwte0267 [facility]UNC [facility] [id number] Basophils/100 WBC Auto (Bld) 1 % Normal [facility] Work Phone: Eosinophils #/vol (Bld) 0.2 {x10E3/uL} Normal 0.0-0.4 [facility] Work Phone: Comment on above: now and in six month s (approximately); PATIENT NOT FASTINGPERFORMED BY: Resonergy Mvoexw4751 [facility] [id number] Eosinophils (Bld) [#/Vol] 0.2 10*3/uL Normal 0.0-0.4 [facility]; [facility] Work Phone: Eosinophils Auto #/vol (Bld) 0.2 {x10E3/uL} Normal 0.0-0.4 [facility] Work Phone: Eosinophils/100 WBC (Bld) 2 % Normal [facility] Work Phone: Comment on above: now and in six month s (approximately); PATIENT NOT FASTINGPERFORMED BY: Resonergy Pxsebu7797 [address] AcunoteUNC Health Blue [facility] [id number] Eosinophils/100 WBC Auto (Bld) 2 % Normal [facility] Work Phone: Erythrocyte distribution width Auto Ratio (RBC) 14.1 % Normal 12.3-15.4 [facility] Work Phone: Erythrocyte distribution width Ratio (RBC) 14.1 % Normal 12.3-15.4 [facility] Work Phone: Comment on above: now and in six month s (approximately); PATIENT NOT FASTINGPERFORMED BY: [employer]6370 [facility]UNC [facility] [id number] Hematocrit Auto Volume Fraction (Bld) 41.5 % Normal 34.0-46.6 [facility] Work Phone: Hematocrit Volume Fraction (Bld) 41.5 % Normal 34.0-46.6 [facility] Work Phone: Comment on above: now and in six month s (approximately); PATIENT NOT FASTINGPERFORMED BY: Ecometrica LabYnvisible6370 [address] AcunoteUNC Health Blue [facility] [id number] Hemoglobin mass conc (Bld) 13.9 g/dL Normal 11.1-15.9 [facility] Work Phone: Comment on above: now and in six month s (approximately); PATIENT NOT FASTINGPERFORMED BY: [employer]6370 [facility] [id number] Immature granulocytes #/vol (Bld) 0.0 {x10E3/uL} Normal 0.0-0.1 [facility] Work Phone: Comment on above: now and in six month s (approximately); PATIENT NOT FASTINGPERFORMED BY: Ecometrica Lab6APT Ylbnlo2733 [address] [facility]stackTransylvania [facility] Hospital [id number] Immature granulocytes (Bld) [#/Vol] 0.0 10*3/uL Normal 0.0-0.1 [facility]; [facility] Work Phone: Immature granulocytes/100 WBC (Bld) 0 % Normal [facility] Work Phone: Comment on above: now and in six month s (approximately); PATIENT NOT FASTINGPERFORMED BY: CLARE Cellerant TherapeuticsYohana Holloway6370 [facility] [id number] Lymphocytes #/vol (Bld) 1.7 {x10E3/uL} Normal 0.7-3.1 [facility] Work Phone: Comment on above: now and in six month s (approximately); PATIENT NOT FASTINGPERFORMED BY: CLARE Cellerant TherapeuticsCox South Fmglra7381 [facility] [id number] Lymphocytes (Bld) [#/Vol] 1.7 10*3/uL Normal 0.7-3.1 [facility]; [facility] Work Phone: Lymphocytes Auto #/vol (Bld) 1.7 {x10E3/uL} Normal 0.7-3.1 [facility] Work Phone: Lymphocytes/100 WBC (Bld) 14 % Normal [facility] Work Phone: Comment on above: now and in six month s (approximately); PATIENT NOT FASTINGPERFORMED BY: CLARE Offermatica Wcicdf8056 [facility] [id number] Lymphocytes/100 WBC Auto (Bld) 14 % Normal [facility] Work Phone: MCH Auto Entitic mass (RBC) 28.4 pg Normal 26.6-33.0 [facility] Work Phone: MCH Entitic mass (RBC) 28.4 pg Normal 26.6-33.0 [facility] Work Phone: Comment on above: now and in six month s (approximately); PATIENT NOT FASTINGPERFORMED BY: CLARE Cellerant TherapeuticsCox South Rvkdmw6095 [facility] [id number] MCHC Auto mass conc (RBC) 33.5 g/dL Normal 31.5-35.7 [facility] Work Phone: MCHC mass conc (RBC) 33.5 g/dL Normal 31.5-35.7 Comp rehensive Internal Medicine Work Phone: Comment on above: now and in six month s (approximately); PATIENT NOT FASTINGPERFORMED BY: [facility]6370 [facility] [id number] MCV Auto Entitic volume (RBC) 85 fL Normal 79-97 [facility] Work Phone: MCV Entitic volume (RBC) 85 fL Normal 79-97 [facility] Work Phone: Comment on above: now and in six month s (approximately); PATIENT NOT FASTINGPERFORMED BY: [place] 2899770 [facility] [id number] Monocytes #/vol (Bld) 1.0 {x10E3/uL} Abnormal 0.1-0.9 [facility] Work Phone: Comment on above: now and in six month s (approximately); PATIENT NOT FASTINGPERFORMED BY: [place] 2899770 [facility] [id number] Monocytes (Bld) [#/Vol] 1.0 10*3/uL Abnormal 0.1-0.9 [facility]; [facility] Work Phone: Monocytes Auto #/vol (Bld) 1.0 {x10E3/uL} Abnormal 0.1-0.9 [facility] Work Phone: Monocytes/100 WBC (Bld) 8 % Normal [facility] Work Phone: Comment on above: now and in six month s (approximately); PATIENT NOT FASTINGPERFORMED BY: [place] 2899770 [facility] [id number] Monocytes/100 WBC Auto (Bld) 8 % Normal [facility] Work Phone: Neutrophils #/vol (Bld) 9.1 {x10E3/uL} Abnormal 1.4-7.0 [facility] Work Phone: Comment on above: now and in six month s (approximately); PATIENT NOT FASTINGPERFORMED BY: [place] 2899770 [facility] [id number] Neutrophils (Bld) [#/Vol] 9.1 10*3/uL Abnormal 1.4-7.0 [facility]; [facility] Work Phone: Neutrophils Auto #/vol (Bld) 9.1 {x10E3/uL} Abnormal 1.4-7.0 [facility] Work Phone: Neutrophils/100 WBC (Bld) 75 % Normal [facility] Work Phone: Comment on above: now and in six month s (approximately); PATIENT NOT FASTINGPERFORMED BY: Timeliner70 [facility] [id number] Neutrophils/100 WBC Auto (Bld) 75 % Normal [facility] Work Phone: Platelets #/vol (Bld) 196 {x10E3/uL} Normal 150-379 [facility] Work Phone: Comment on above: now and in six month s (approximately); PATIENT NOT FASTINGPERFORMED BY: Timeliner70 [facility]alUNC [facility] [id number] Platelets (Bld) [#/Vol] 196 10*3/uL Normal 150-379 [facility]; [facility] Work Phone: Platelets Auto #/vol (Bld) 196 {x10E3/uL} Normal 150-379 [facility] Work Phone: RBC #/vol (Bld) 4.89 {x10E6/uL} Normal 3.77-5.28 Comp rehensive Internal Medicine Work Phone: Comment on above: now and in six month s (approximately); PATIENT NOT FASTINGPERFORMED BY: Offermatica Luodln0700 [address] GreenstackTransylvania [facility] Hospital [id number] RBC (Bld) [#/Vol] 4.89 10*6/uL Normal 3.77-5.28 Compr ehensive Internal Medicine; [facility] Work Phone: RBC Auto #/vol (Bld) 4.89 {x10E6/uL} Normal 3.77-5.28 [facility] Work Phone: WBC #/vol (Bld) 12.1 {x10E3/uL} Abnormal 3.4-10.8 Comp rehensive Internal Medicine Work Phone: Comment on above: now and in six month s (approximately); PATIENT NOT FASTINGPERFORMED BY: CLARE OffermaticaTrenton Psychiatric HospitalPowhjg7927 [facility] [id number] WBC (Bld) [#/Vol] 12.1 10*3/uL Abnormal 3.4-10.8 [facility] Centerensive [facility]; [facility] Work Phone: WBC Auto #/vol (Bld) 12.1 {x10E3/uL} Abnormal 3.4-10.8 [facility] Work Phone: CBC With Differential/Platel etOrdered By: Manager Internal on 07-05-2017 Basophils #/vol (Bld) 0.0 {x10E3/uL} Normal 0.0-0.2 [facility] Work Phone: Comment on above: PATIENT WAS FASTINGP ERFORMED BY: HeartThis[address] [id number] BY: CLARE COGEON Dhhrcd4475 [facility] [id number] Basophils Auto #/vol (Bld) 0.0 {x10E3/uL} Normal 0.0-0.2 [facility] Work Phone: Basophils/100 WBC (Bld) 0 % Normal [facility] Work Phone: Comment on above: PATIENT WAS FASTINGP ERFORMED BY: Foodist [address] [id number] BY: OffermaticaTrenton Psychiatric HospitalGydrce1658 [facility] [id number] Basophils/100 WBC Auto (Bld) 0 % Normal [facility] Work Phone: Eosinophils #/vol (Bld) 0.0 {x10E3/uL} Normal 0.0-0.4 [facility] Work Phone: Comment on above: PATIENT WAS FASTINGP ERFORMED BY: Offermatica[address] [id number] BY: OffermaticaTrenton Psychiatric HospitalPulwzh1829 [facility] [id number] Eosinophils Auto #/vol (Bld) 0.0 {x10E3/uL} Normal 0.0-0.4 [facility] Work Phone: Eosinophils/100 WBC (Bld) 0 % Normal [facility] Work Phone: Comment on above: PATIENT WAS FASTINGP ERFORMED BY: Offermatica[address] [id number] BY: OffermaticaRichard [place] 6228770 [facility] [id number] Eosinophils/100 WBC Auto (Bld) 0 % Normal [facility] Work Phone: Erythrocyte distribution width Ratio (RBC) 14.5 % Normal 12.3-15.4 [facility] Work Phone: Comment on above: PATIENT WAS FASTINGP ERFORMED BY: Offermatica[address] [id number] BY: Offermatica[address] [id number] Hematocrit Volume Fraction (Bld) 42.0 % Normal 34.0-46.6 [facility] Work Phone: Comment on above: PATIENT WAS FASTINGP ERFORMED BY: Offermatica[address] [id number] BY: OffermaticaRichard [place] 6228770 [facility] [id number] Immature granulocytes #/vol (Bld) 0.0 {x10E3/uL} Normal 0.0-0.1 [facility] Work Phone: Comment on above: PATIENT WAS FASTINGP ERFORMED BY: Offermatica[address] [id number] BY: OffermaticaRichard [place] 6228770 [facility] [id number] Immature granulocytes/100 WBC (Bld) 0 % Normal [facility] Work Phone: Comment on above: PATIENT WAS FASTINGP ERFORMED BY: [employer] [id number] BY: LabCox South Nbnbop1670 [facility] [id number] Lymphocytes #/vol (Bld) 0.9 {x10E3/uL} Normal 0.7-3.1 [facility] Work Phone: Comment on above: PATIENT WAS FASTINGP ERFORMED BY: [employer] [id number] BY: LabAmanda [place] 9405370 [facility] [id number] Lymphocytes Auto #/vol (Bld) 0.9 {x10E3/uL} Normal 0.7-3.1 [facility] Work Phone: Lymphocytes/100 WBC (Bld) 4 % Normal [facility] Work Phone: Comment on above: PATIENT WAS FASTINGP ERFORMED BY: [employer] [id number] BY: OffermaticaTrenton Psychiatric HospitalSyeuks8799 [facility] [id number] Lymphocytes/100 WBC Auto (Bld) 4 % Normal [facility] Work Phone: MCH Entitic mass (RBC) 28.8 pg Normal 26.6-33.0 [facility] Work Phone: Comment on above: PATIENT WAS FASTINGP ERFORMED BY: [employer] [id number] BY: Cellerant TherapeuticsCorewell Health Blodgett Hospital6370 [facility] [id number] MCHC mass conc (RBC) 33.1 g/dL Normal 31.5-35.[address] [facility] Internal Medicine Work Phone: Comment on above: PATIENT WAS FASTINGP ERFORMED BY: [employer] [id number] BY: [facility] Ydnbwr4527 [facility] [id number] MCV Entitic volume (RBC) 87 fL Normal 79-97 [facility] Work Phone: Comment on above: PATIENT WAS FASTINGP ERFORMED BY: Offermatica[address] [id number] BY: [facility] HospitalSkyVu EntertainmentRichard Ville 6228770 [facility] [id number] Monocytes #/vol (Bld) 1.1 {x10E3/uL} Abnormal 0.1-0.9 [facility] Work Phone: Comment on above: PATIENT WAS FASTINGP ERFORMED BY: Offermatica[address] [id number] BY: Offermatica[address] [id number] Monocytes Auto #/vol (Bld) 1.1 {x10E3/uL} Abnormal 0.1-0.9 [facility] Work Phone: Monocytes/100 WBC (Bld) 5 % Normal [facility] Work Phone: Comment on above: PATIENT WAS FASTINGP ERFORMED BY: Offermatica[address] [id number] BY: OffermaticaRichard [place] 6228770 [facility] [id number] Monocytes/100 WBC Auto (Bld) 5 % Normal [facility] Work Phone: Neutrophils #/vol (Bld) 18.4 {x10E3/uL} Abnormal 1.4-7.0 [facility] Work Phone: Comment on above: PATIENT WAS FASTINGP ERFORMED BY: Offermatica[address] [id number] BY: OffermaticaRichard [place] 6228770 [facility] [id number] Neutrophils Auto #/vol (Bld) 18.4 {x10E3/uL} Abnormal 1.4-7.0 [facility] Work Phone: Neutrophils/100 WBC (Bld) 91 % Normal [facility] Work Phone: Comment on above: PATIENT WAS FASTINGP ERFORMED BY: Offermatica[address] [id number] BY: CLARE [facility] HospitalSkyVu EntertainmentRichard [place]ille 6228770 [facility] [id number] Neutrophils/100 WBC Auto (Bld) 91 % Normal [facility] Work Phone: Platelets #/vol (Bld) 233 {x10E3/uL} Normal 150-379 [facility] Work Phone: Comment on above: PATIENT WAS FASTINGP ERFORMED BY: Offermatica[address] [id number] BY: CLARE Offermatica Vmvokh1298 [facility] [id number] Platelets Auto #/vol (Bld) 233 {x10E3/uL} Normal 150-379 [facility] Work Phone: RBC #/vol (Bld) 4.83 {x10E6/uL} Normal 3.77-5.28 Comp rehensive Internal Medicine Work Phone: Comment on above: PATIENT WAS FASTINGP ERFORMED BY: Offermatica[address] [id number] BY: CLARE [facility] HospitalSkyVu EntertainmentTrenton Psychiatric HospitalEgbsst6467 [facility] [id number] RBC Auto #/vol (Bld) 4.83 {x10E6/uL} Normal 3.77-5.28 [facility] Work Phone: WBC #/vol (Bld) 20.4 {x10E3/uL} Abnormal 3.4-10.8 Comp rehensive Internal Medicine Work Phone: Comment on above: PATIENT WAS FASTINGP ERFORMED BY: Offermatica[address] [id number] BY: CLARE [facility]6370 [facility] [id number] WBC Auto #/vol (Bld) 20.4 {x10E3/uL} Abnormal 3.4-10.8 [facility] Work Phone: Clinical 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-2017 Albumin 4.3 g/dL Normal 3.5-4.8 [facility] Work Phone: Comment on above: PATIENT WAS FASTINGP ERFORMED BY: BN [facility] Flpwrslfle674[address] [id number] BY: CB [facility] Okafai3703 [address] RoadDublin [place] [id number] Bilirubin (total) 0.3 mg/dL Normal 0.0-1.2 [facility] Work Phone: Comment on above: PATIENT WAS FASTINGP ERFORMED BY: BN [facility] [address] [id number] BY: CB [facility] Obytuw6694 [address] RoadDublin [place] [id number] BUN/Creatinine Ratio 22 mg/mg Normal 12-[address] [facility] [address] [facility] Work Phone: Comment on above: PATIENT WAS FASTINGP ERFORMED BY: BN [facility] Qxdbtfoccc9353 [facility] [id number] BY: CB [facility] Uryzae9682 [address] RoadDublin [place] [id number] Calcium 9.9 mg/dL Normal 8.7-10.3 [facility] Work Phone: Comment on above: PATIENT WAS FASTINGP ERFORMED BY: BN [facility] Ekkymkpccs2804 [facility] [id number] BY: CB [facility] Qrjzke0159 [address] RoadDublin [place] [id number] Chloride 104 mmol/L Normal 96-106 [facility] Work Phone: Comment on above: PATIENT WAS FASTINGP ERFORMED BY: [facility] Kmrzujysxg[address] [id number] BY: CB [facility] Hnktll7256 [address] RoadDublin [place] [id number] Cholesterol 143 mg/dL Normal 100-199 [facility] Work Phone: Comment on above: PATIENT WAS FASTINGP ERFORMED BY: LabCo[address] [id number] BY: [facility] Vdgukm1510 [facility] [id number] CO2 23 mmol/L Normal 18-29 [facility] Work Phone: Comment on above: PATIENT WAS FASTINGP ERFORMED BY: [facility] [address] [id number] BY: [facility] Huepud5715 [facility] [id number] Creatinine 1.10 mg/dL Abnormal 0.57-1.00 [facility] Work Phone: Comment on above: PATIENT WAS FASTINGP ERFORMED BY: LabCo[address] [id number] BY: LabCoTrenton Psychiatric HospitalUklagi4284 [facility] [id number] Erythrocyte distribution width Auto Ratio (RBC) 14.5 % Normal 12.3-15.4 [facility] Work Phone: Globulin 2.3 g/dL Normal 1.5-4.5 [facility] Work Phone: Glucose mass conc 127 mg/dL Abnormal 65-99 [facility] Work Phone: Comment on above: PATIENT WAS FASTINGP ERFORMED BY: LabCoBrittany Ville 47[address]97 [facility] [id number] BY: LabCo Iwgvln3174 [facility] [id number] HDL Cholesterol 50 mg/dL Normal [facility] Work Phone: Comment on above: PATIENT WAS FASTINGP ERFORMED BY: LabCo[address] [id number] BY: LabCo Xxjfpi7054 [facility] [id number] Hematocrit (HCT) 42.0 % Normal 34.0-46.6 [facility] Work Phone: Hemoglobin mass conc (Bld) 13.9 g/dL Normal 11.1-15.9 [facility] Work Phone: Comment on above: PATIENT WAS FASTINGP ERFORMED BY: Foodist [address] [id number] BY: CLARE Offermatica Pccygy3384 [facility] [id number] LDL Cholesterol 69 mg/dL Normal 0-99 [facility] eart Group Work Phone: Comment on above: . Optimal < 100 Abov e optimal 100 - 129 Borderline 130 - 159 High 160 - 189 Very high > 189 .LDL-C is inaccurate if patient is non-fasting. PATIENT WAS FASTINGP ERFORMED BY: Foodist [address] [id number] BY: CLARE [employer]70 [facility] [id number] MCH 28.8 pg Normal 26.6-33.0 [facility] Work Phone: MCHC mass conc (RBC) 33.1 g/dL Normal 31.5-35.7 [facility] Work Phone: MCV 87 fL Normal 79-97 [facility] Work Phone: Potassium molar conc 4.4 mmol/L Normal 3.5-5.2 [facility] Work Phone: Comment on above: PATIENT WAS FASTINGP ERFORMED BY: HeartThis[address] [id number] BY: OffermaticaTrenton Psychiatric HospitalLsadlm7718 [facility] [id number] Protein 6.6 g/dL Normal 6.0-8.5 [facility] Work Phone: Comment on above: PATIENT WAS FASTINGP ERFORMED BY: Foodist [address] [id number] BY: Timeliner70 [facility] [id number] Sodium 145 mmol/L Abnormal 134-144 [facility] Work Phone: Comment on above: PATIENT WAS FASTINGP ERFORMED BY: Neterion[address] [id number] BY: OffermaticaMimbres Memorial HospitalRtvpwx2162 [facility] [id number] Triglyceride 119 mg/dL Normal 0-149 [facility] Work Phone: Comment on above: PATIENT WAS FASTINGP ERFORMED BY: HeartThis[address] [id number] BY: Offermatica Szgxms9617 [facility] [id number] Urea nitrogen 24 mg/dL Normal 8-27 [facility] Work Phone: Comment on above: PATIENT WAS FASTINGP ERFORMED BY: HeartThis[address] [id number] BY: [employer]70 [facility] [id number] Alanine aminotransferase (ALT) 15 U/L Invalid Interpretation Code [facility] Work Phone: Alkaline phosphatase (ALP) 65 U/L Invalid Interpretation Code [facility] Work Phone: Aspartate aminotransferase (AST) 16 U/L Invalid Interpretation Code [facility] Work Phone: Erythrocytes (RBC) 4.83 10*6/uL Invalid Interpretation Code [facility] Work Phone: Platelets 233 10*3/mm3 Invalid Interpretation Code [facility] Work Phone: Thyroid stimulating hormone (TSH) 0.822 u[iU]/mL Invalid Interpretation Code [facility] Work Phone: WBC (Leukocytes) 20.4 10*3/uL [facility] Work Phone: Comp. Metabolic Panel (14)Or dered By: Manager Internal on 07-05-2017 Albumin/Globulin mass ratio 1.9 {ratio} Normal 1.2-2.2 [facility] Work Phone: Comment on above: PATIENT WAS FASTINGP ERFORMED BY: [facility] [address] [id number] BY: [facility] Iaserp3039 Pavon RoadDublin [place] [id number] ALP enzyme act/vol 65 [iU]/L Normal 39-117 [facility] Work Phone: Comment on above: PATIENT WAS FASTINGP ERFORMED BY: [facility] [address] [id number] BY: CB [facility] Zdmnqe0764 [address]on RoadDublin [place] [id number] ALT enzyme act/vol 15 [iU]/L Normal 0-32 [facility] Work Phone: Comment on above: PATIENT WAS FASTINGP ERFORMED BY: [facility] [address] [id number] BY: [facility] Mxwtdj0510 Pavon RoadTransylvania Regional Hospital [id number] AST enzyme act/vol 16 [iU]/L Normal 0-40 [facility] Work Phone: Comment on above: PATIENT WAS FASTINGP ERFORMED BY: [facility] [address] [id number] BY: [facility] Jumsrz0184 [address] RoadOur Community Hospitalin [place] [id number] GFR/1.73 sq M predicted among blacks CKD-EPI vol rate/area (S/P/Bld) 55 mL/min/1.73 Abnormal Com[facility] e [facility] Work Phone: Comment on above: PATIENT WAS FASTINGP ERFORMED BY: [facility] [address] [id number] BY: [facility] Xoobic8349 [address] RoadDublin [place] [id number] GFR/1.73 sq M predicted among non-blacks CKD-EPI vol rate/area (S/P/Bld) 48 mL/min/1.73 Abnormal [facility] Work Phone: Comment on above: PATIENT WAS FASTINGP ERFORMED BY: LabCoBrittany [place] [address] [facility] [id number] BY: [facility] Jtzxfh5740 Pavon RoadDublin [place] [id number] Globulin mass conc (S) 2.3 g/dL Normal 1.5-4.5 [facility] Work Phone: Comment on above: PATIENT WAS FASTINGP ERFORMED BY: [facility] [address] [id number] BY: [facility] Zbbvxu3651 Pavon RoadDuin [place] [id number] Microalb/Creat Ratio, Vincenzo UrOrdered By: Manager Internal on 07-05-2017 Albumin DL <= 20 mg/L mass conc (U) 5.1 ug/mL Normal [facility] Work Phone: Comment on above: PATIENT NOT FASTINGP ERFORMED BY: [facility] Qokzum5237 [address] RoadDuin [place] [id number] Albumin/Creatinine mass ratio (U) 3.7 {mg/g_creat} Normal 0.0-30.0 [facility] Work Phone: Comment on above: PATIENT NOT FASTINGP ERFORMED BY: [facility] Kidubi5338 Pav[address] RoadDublin [place] [id number] Creatinine mass conc (U) 137.6 mg/dL Normal [facility] Work Phone: Comment on above: PATIENT NOT FASTINGP ERFORMED BY: [facility] Rilxnh9467 [address] RoadDublin [place] [id number] Microscopic ExaminationOrder ed By: Manager Internal on 07-05-2017 Bacteria LM.HPF #/area (Urine sed) Few Normal [facility] Work Phone: Comment on above: PATIENT NOT FASTINGP ERFORMED BY: CB [facility] Zzgqlt3167 [address] RoadDublin [place] [id number] Crystals LM Nom (Urine sed) Calcium Oxalate Normal [facility] Work Phone: Comment on above: PATIENT NOT FASTINGP ERFORMED BY: CLARE LabCoTrenton Psychiatric HospitalJqzqrp7236 [address] [facility] CenterDublin [place] [id number] Epithelial cells LM.HPF #/area (Urine sed) 0-10 Normal 0 - 10 [facility] Work Phone: Comment on above: PATIENT NOT FASTINGP ERFORMED BY: CLARE [facility] Jzglva7957 [address] [facility] Centerblin [place] [id number] Mucus LM Ql (Urine sed) Present Normal [facility] Work Phone: Mucus Ql (Urine sed) Present Normal Comp rehensive Internal Medicine Work Phone: Comment on above: PATIENT NOT FASTINGP ERFORMED BY: CLARE LabCoTrenton Psychiatric HospitalQwcfdr8527 [address] [facility] Hospitalin [place] [id number] RBC LM.HPF #/area (Urine sed) 0-2 Normal 0 - 2 [facility] Work Phone: Comment on above: PATIENT NOT FASTINGP ERFORMED BY: LabCoRichard Ville 6228770 [address] [facility] Hospitalin [place] [id number] Unidentified crystals LM Ql (Urine sed) Present Abnormal [facility] Work Phone: Comment on above: PATIENT NOT FASTINGP ERFORMED BY: LabCoTrenton Psychiatric HospitalSkjrpa2692 [facility] [id number] WBC LM.HPF #/area (Urine sed) 0-5 Normal 0 - 5 [facility] Work Phone: Comment on above: PATIENT NOT FASTINGP ERFORMED BY: LabCoRichard Ville 6228770 [facility] [id number] NMR LipoProfileOrdered By: Stacie ystem Cloth Finisher on 07-05-2017 Lipoprotein.alpha molar conc 31.5 umol/L Normal [facility] Work Phone: Comment on above: PATIENT WAS FASTINGP ERFORMED BY: LabChildren[facility]S [facility]1447 [facility] [id number] BY: [facility]6370 [facility] Systemin [place] [id number] Lipoprotein.beta.sub particle Entitic length 20.3 nm Normal [facility] Work Phone: Comment on above: INTERPRETATIVE INFORMATION PARTICLE CONCENTRATION AND SIZE <--Lower CVD Risk Higher CVD Risk--> LDL AND HDL PARTICLES Percentile in Reference Population HDL-P (total) High 75th 50th 25th Low >34.9 34.9 30.5 26.7 <26.7 . Small LDL-P Low 25th 50th 75th High <117 117 527 839 >839 . LDL Size <-Large (Pattern A)-> <-Small (Pattern B)-> 23.0 20.6 20.5 19.0 Small LDL-P and LDL Size are associated with CVD risk, but not afterLDL-P is taken into account. .These assays were developed and their performance characteristicsdetermined by [employer]. These assays have not been cleared by [place] Food and Drug Administration. The clinical utility of theselaboratory values have not been fully established. PATIENT WAS FASTINGP ERFORMED BY: HeartThis[address] [id number] BY: [employer] [place] [id number] Lipoprotein.beta.sub particle molar conc 1010 nmol/L Abnormal Comprehensiv e [facility] Work Phone: Comment on above: Low < 1000 Moderate 1000 - 1299 Borderline-High 1300 - 1599 High 1600 - 2000 Very High > 2000 PATIENT WAS FASTINGP ERFORMED BY: Foodist [address] [id number] BY: Timeliner70 Dynamo MediaTransylvania Regional Hospital [id number] Lipoprotein.beta.sub particle.small molar conc 576 nmol/L Abnormal [facility] Work Phone: Comment on above: PATIENT WAS FASTINGP ERFORMED BY: LabCo[address] [id number] BY: CLARE [facility] Ovkkbj2563 Pavon RoadDublin [place] [id number] TSHOrdered By: System Manage r on 07-05-2017 Thyrotropin Qn 0.822 {uIU/mL} Normal 0.450-4.50 0 [facility] Work Phone: Comment on above: PATIENT WAS FASTINGP ERFORMED BY: [facility] [address] [id number] BY: CLARE LabCopat ChanelGuvhja2839 Pav[address] RoadDublin [place] [id number] Urinalysis, CompleteOrdered By: Manager Internal on 07-05-2017 Appearance Nom (U) Clear Normal Compre hensive Internal Medicine Work Phone: Comment on above: PATIENT NOT FASTINGP ERFORMED BY: CLARE [facility] Iogucd4884 Pavon RoadDublin [place] [id number] Bilirubin Ql (U) Negative Normal Comprehe nsive Internal Medicine Work Phone: Comment on above: PATIENT NOT FASTINGP ERFORMED BY: CLARE [facility] Byobbh3812 Pav[address] RoadDublin [place] [id number] Color Nom (U) Yellow Normal Comprehensi ve Internal Medicine Work Phone: Comment on above: PATIENT NOT FASTINGP ERFORMED BY: CLARE [facility] Tdoiul2849 [address] RoadDublin [place] [id number] Glucose Ql (U) Negative Normal Comprehens raysa [facility] Work Phone: Comment on above: PATIENT NOT FASTINGP ERFORMED BY: CLARE [facility] Tyhbkn1132 [address] RoadDublin [place] [id number] Hemoglobin Ql (U) Negative Normal Compreh ensive Internal Medicine Work Phone: Comment on above: PATIENT NOT FASTINGP ERFORMED BY: CB [facility] Bvsgbf9818 [address] RoadDublin [place] [id number] Hemoglobin Test strip Ql (U) Negative Normal [facility] Work Phone: Ketones Ql (U) Negative Normal Comprehens raysa [facility] Work Phone: Comment on above: PATIENT NOT FASTINGP ERFORMED BY: CLARE [facility] Klwump2685 [address]on RoadDublin [place] [id number] Leukocyte esterase Test strip Ql (U) Trace Abnormal [facility] Work Phone: Comment on above: PATIENT NOT FASTINGP ERFORMED BY: CLARE [facility] Mbmmep6379 [address] RoadDublin [place] [id number] Microscopic observation LM Nom (Urine sed) See below: Normal [facility] Work Phone: Comment on above: Microscopic was no cated and was performed. PATIENT NOT FASTINGP ERFORMED BY: CLARE [facility] Rtvvnq9310 [address] RoadDublin [place] [id number] Nitrite Ql (U) Negative Normal Comprehens raysa [facility] Work Phone: Comment on above: PATIENT NOT FASTINGP ERFORMED BY: CLARE [facility] Txsmqq2278 [address] RoadDublin [place] [id number] Nitrite Test strip Ql (U) Negative Normal [facility] Work Phone: pH (U) 5.5 [pH] Normal 5.0-7.5 [facility] Work Phone: Comment on above: PATIENT NOT FASTINGP ERFORMED BY: CLARE [facility] Kphwpo7034 [address] RoadDublin [place] [id number] pH Test strip (U) 5.5 [pH] Normal 5.0-7.5 Compreh ensive Internal Medicine Work Phone: Protein Ql (U) Negative Normal Comprehens raysa [facility] Work Phone: Comment on above: PATIENT NOT FASTINGP ERFORMED BY: CLARE [facility] Hztewr9873 [address] RoadDublin [place] [id number] Protein Test strip Ql (U) Negative Normal [facility] Work Phone: Specific gravity Relative Density (U) 1.028 1 Normal 1.005-1.03 0 [facility] Work Phone: Comment on above: PATIENT NOT FASTINGP ERFORMED BY: Offermatica Nvaiyf3621 [address] AcunoteUNC Health Blue Ridge [id number] Urobilinogen Test strip mass conc (U) 0.2 mg/dL Normal 0.2-1.0 Comprehensiv e [facility] Work Phone: Comment on above: PATIENT NOT FASTINGP ERFORMED BY: Offermatica Wesbkn8448 [address] AcunoteUNC Health Blue Ridge [id number] Office Visiton 01-21-2017 Documentation of current medications (procedure) Done Invalid Interpretation Code [facility] Work Phone: Fall risk assessment No Invalid Interpretation Code [employer] Work Phone: CBC with auto diff ([id number])Or dered By: Manager Internal on 01-20-2017 Basophils #/vol (Bld) 0.1 {x10E3/uL} Normal 0.0-0.2 [facility] Work Phone: Comment on above: PATIENT WAS FASTINGP ERFORMED BY: Offermatica Umudsucyjy[address] [id number] BY: Offermatica Gnsafb8295 [facility] [id number]; fu 5-23 DB Basophils (Bld) [#/Vol] 0.1 10*3/uL Normal 0.0-0.2 [facility]; [facility] Work Phone: Basophils Auto #/vol (Bld) 0.1 {x10E3/uL} Normal 0.0-0.2 [facility] Work Phone: Basophils/100 WBC (Bld) 1 % Normal [facility] Work Phone: Comment on above: PATIENT WAS FASTINGP ERFORMED BY: Offermatica[address] [id number] BY: OffermaticaTrenton Psychiatric HospitalQapzxn1444 [facility] [id number]; fu 5-23 DB Basophils/100 WBC Auto (Bld) 1 % Normal [facility] Work Phone: Eosinophils #/vol (Bld) 0.2 {x10E3/uL} Normal 0.0-0.4 [facility] Work Phone: Comment on above: PATIENT WAS FASTINGP ERFORMED BY: Foodist [address] [id number] BY: Timeliner70 [facility] [id number]; fu 5-23 DB Eosinophils (Bld) [#/Vol] 0.2 10*3/uL Normal 0.0-0.4 [facility]; [facility] Work Phone: Eosinophils Auto #/vol (Bld) 0.2 {x10E3/uL} Normal 0.0-0.4 [facility] Work Phone: Eosinophils/100 WBC (Bld) 2 % Normal [facility] Work Phone: Comment on above: PATIENT WAS FASTINGP ERFORMED BY: Foodist [address] [id number] BY: Timeliner70 [facility] [id number]; fu 5-23 DB Eosinophils/100 WBC Auto (Bld) 2 % Normal [facility] Work Phone: Erythrocyte distribution width Auto Ratio (RBC) 14.2 % Normal 12.3-15.4 [facility] Work Phone: Erythrocyte distribution width Ratio (RBC) 14.2 % Normal 12.3-15.4 [facility] Work Phone: Comment on above: PATIENT WAS FASTINGP ERFORMED BY: Foodist [address] [id number] BY: ResonergyRichard [place]ille 6228770 [facility] [id number]; fu 5-23 DB Hematocrit Auto Volume Fraction (Bld) 42.5 % Normal 34.0-46.6 [facility] Work Phone: Hematocrit Volume Fraction (Bld) 42.5 % Normal 34.0-46.6 [facility] Work Phone: Comment on above: PATIENT WAS FASTINGP ERFORMED BY: Offermatica[address] [id number] BY: LabCoRichard [place] 6228770 [facility] [id number]; fu 5-23 DB Hemoglobin mass conc (Bld) 14.1 g/dL Normal 11.1-15.9 [facility] Work Phone: Comment on above: PATIENT WAS FASTINGP ERFORMED BY: Offermatica[address] [id number] BY: LabSkyVu EntertainmentRichard [place]ille 6228770 [facility] [id number]; fu 5-23 DB Immature granulocytes #/vol (Bld) 0.0 {x10E3/uL} Normal 0.0-0.1 [facility] Work Phone: Comment on above: PATIENT WAS FASTINGP ERFORMED BY: Offermatica[address] [id number] BY: LabSkyVu EntertainmentRichard [place]ille 6228770 [facility] [id number]; fu 5-23 DB Immature granulocytes (Bld) [#/Vol] 0.0 10*3/uL Normal 0.0-0.1 [facility]; [facility] Work Phone: Immature granulocytes/100 WBC (Bld) 0 % Normal [facility] Work Phone: Comment on above: PATIENT WAS FASTINGP ERFORMED BY: Offermatica[address] [id number] BY: LabSkyVu EntertainmentRichard [place]ille 6228770 [facility] [id number]; fu 5-23 DB Lymphocytes #/vol (Bld) 1.2 {x10E3/uL} Normal 0.7-3.1 [facility] Work Phone: Comment on above: PATIENT WAS FASTINGP ERFORMED BY: [address] [id number] BY: CLARE [facility]6370 [facility] [id number]; fu 5-23 DB Lymphocytes (Bld) [#/Vol] 1.2 10*3/uL Normal 0.7-3.1 [facility]; [facility] Work Phone: Lymphocytes Auto #/vol (Bld) 1.2 {x10E3/uL} Normal 0.7-3.1 [facility] Work Phone: Lymphocytes/100 WBC (Bld) 19 % Normal [facility] Work Phone: Comment on above: PATIENT WAS FASTINGP ERFORMED BY: Offermatica[address] [id number] BY: CLARE [facility] HospitalSkyVu EntertainmentRichard Ville 6228770 [facility] [id number]; fu 5-23 DB Lymphocytes/100 WBC Auto (Bld) 19 % Normal [facility] Work Phone: MCH Auto Entitic mass (RBC) 28.0 pg Normal 26.6-33.0 [facility] Work Phone: MCH Entitic mass (RBC) 28.0 pg Normal 26.6-33.0 [facility] Work Phone: Comment on above: PATIENT WAS FASTINGP ERFORMED BY: Offermatica[address] [id number] BY: [place] 2899770 [facility] [id number]; fu 5-23 DB MCHC Auto mass conc (RBC) 33.2 g/dL Normal 31.5-35.7 [facility] Work Phone: MCHC mass conc (RBC) 33.2 g/dL Normal 31.5-35.7 Comp [facility] Work Phone: Comment on above: PATIENT WAS FASTINGP ERFORMED BY: [facility] Luke's HospitalSkyVu Entertainment[address] [id number] BY: [place] 2899770 [facility] [id number]; fu 5-23 DB MCV Auto Entitic volume (RBC) 85 fL Normal 79-97 [facility] Work Phone: MCV Entitic volume (RBC) 85 fL Normal 79-97 [facility] Work Phone: Comment on above: PATIENT WAS FASTINGP ERFORMED BY: Offermatica[address] [id number] BY: OffermaticaRichard [place] 6228770 [facility] [id number]; fu 5-23 DB Monocytes #/vol (Bld) 0.6 {x10E3/uL} Normal 0.1-0.9 [facility] Work Phone: Comment on above: PATIENT WAS FASTINGP ERFORMED BY: Offermatica[address] [id number] BY: OffermaticaRichard [place] 6228770 [facility] [id number]; fu 5-23 DB Monocytes (Bld) [#/Vol] 0.6 10*3/uL Normal 0.1-0.9 [facility]; [facility] Work Phone: Monocytes Auto #/vol (Bld) 0.6 {x10E3/uL} Normal 0.1-0.9 [facility] Work Phone: Monocytes/100 WBC (Bld) 9 % Normal [facility] Work Phone: Comment on above: PATIENT WAS FASTINGP ERFORMED BY: Offermatica[address] [id number] BY: [place] 2899770 [facility] [id number]; fu 5-23 DB Monocytes/100 WBC Auto (Bld) 9 % Normal [facility] Work Phone: Neutrophils #/vol (Bld) 4.6 {x10E3/uL} Normal 1.4-7.0 [facility] Work Phone: Comment on above: PATIENT WAS FASTINGP ERFORMED BY: OffermaticaBrittany Ville [address]97 [facility] [id number] BY: LabSkyVu EntertainmentTrenton Psychiatric HospitalLyrzeu7392 [facility] [id number]; fu 5-23 DB Neutrophils (Bld) [#/Vol] 4.6 10*3/uL Normal 1.4-7.0 [facility]; [facility] Work Phone: Neutrophils Auto #/vol (Bld) 4.6 {x10E3/uL} Normal 1.4-7.0 [facility] Work Phone: Neutrophils/100 WBC (Bld) 69 % Normal [facility] Work Phone: Comment on above: PATIENT WAS FASTINGP ERFORMED BY: Offermatica[address] [id number] BY: [facility] HospitalSkyVu EntertainmentTrenton Psychiatric HospitalHrfttr6624 [facility] [id number]; fu 5-23 DB Neutrophils/100 WBC Auto (Bld) 69 % Normal [facility] Work Phone: Platelets #/vol (Bld) 193 {x10E3/uL} Normal 150-379 [facility] Work Phone: Comment on above: PATIENT WAS FASTINGP ERFORMED BY: Offermatica[address] [id number] BY: [facility] HospitalSkyVu EntertainmentTrenton Psychiatric HospitalCcjpod2573 [facility] [id number]; fu 5-23 DB Platelets (Bld) [#/Vol] 193 10*3/uL Normal 150-379 [facility]; [facility] Work Phone: Platelets Auto #/vol (Bld) 193 {x10E3/uL} Normal 150-379 [facility] Work Phone: RBC #/vol (Bld) 5.03 {x10E6/uL} Normal 3.77-5.28 Comp rehensive Internal Medicine Work Phone: Comment on above: PATIENT WAS FASTINGP ERFORMED BY: BN LabCoMichael Ville [address] [facility] [id number] BY: CLARE Offermatica Taijbn7622 [facility] [id number]; fu 5-23 DB RBC (Bld) [#/Vol] 5.03 10*6/uL Normal 3.77-5.28 [facility] Centerensive [facility]; [facility] Work Phone: RBC Auto #/vol (Bld) 5.03 {x10E6/uL} Normal 3.77-5.28 [facility] Work Phone: WBC #/vol (Bld) 6.7 {x10E3/uL} Normal 3.4-10.8 [facility] Work Phone: Comment on above: PATIENT WAS FASTINGP ERFORMED BY: HeartThis[address] [id number] BY: CLARE Offermatica Qisoro9409 [facility] [id number]; fu 5-23 DB WBC (Bld) [#/Vol] 6.7 10*3/uL Normal 3.4-10.8 [facility]; [facility] Work Phone: WBC Auto #/vol (Bld) 6.7 {x10E3/uL} Normal 3.4-10.8 [facility] Work Phone: Clinical Lists Update: Prelo commercial director 01-20-2017 Left ventricular Ejection fraction 50 % Invalid Interpretation Code [facility] Work Phone: HGB A1C ([id number])Ordered By: S ystem Cloth Finisher on 01-20-2017 Hemoglobin A1c/Hemoglobin.total mass fraction (Bld) 6.0 % Abnormal 4.8-5.6 Comprehensiv e Internal Medicine Work Phone: Comment on above: . Pre-diabetes: 5.7 - 6.4 Diabetes: >6.4 Glycemic control for adults with diabetes: <7.0 PATIENT WAS FASTINGP ERFORMED BY: [employer]70 [facility] [id number]; fu 5-23 db LIPOPROTEIN, BLD, BY NMR ([id number])Ordered By: Manager Internal on 01-20-2017 Cholesterol in HDL mass conc 44 mg/dL Normal [facility] Work Phone: Comment on above: PATIENT WAS FASTINGP ERFORMED BY: Foodist [address] [id number] BY: [employer]70 [facility] [id number] Cholesterol in LDL mass conc 58 mg/dL Normal 0-99 [facility] Work Phone: Comment on above: . Optimal < 100 Abov e optimal 100 - 129 Borderline 130 - 159 High 160 - 189 Very high > 189 .LDL-C is inaccurate if patient is non-fasting. PATIENT WAS FASTINGP ERFORMED BY: Foodist [address] [id number] BY: Timeliner70 [address] AcunoteUNC Health Blue Ridge [id number] Cholesterol mass conc 128 mg/dL Normal 100-199 [facility] Work Phone: Comment on above: PATIENT WAS FASTINGP ERFORMED BY: HeartThis[address] [id number] BY: Timeliner70 [address] AcunoteUNC Health Blue [place] [id number] Lipoprotein.alpha molar conc 31.9 umol/L Normal [facility] Work Phone: Comment on above: PATIENT WAS FASTINGP ERFORMED BY: Foodist [address] [id number] BY: Hacker Schoollin6370 [facility] [id number] Lipoprotein.beta.sub particle Entitic length 20.2 nm Normal [facility] Work Phone: Comment on above: INTERPRETATIVE INFORMATION PARTICLE CONCENTRATION AND SIZE <--Lower CVD Risk Higher CVD Risk--> LDL AND HDL PARTICLES Percentile in Reference Population HDL-P (total) High 75th 50th 25th Low >34.9 34.9 30.5 26.7 <26.7 . Small LDL-P Low 25th 50th 75th High <117 117 527 839 >839 . LDL Size <-Large (Pattern A)-> <-Small (Pattern B)-> 23.0 20.6 20.5 19.0 Small LDL-P and LDL Size are associated with CVD risk, but not afterLDL-P is taken into account. .These assays were developed and their performance characteristicsdetermined by [employer]. These assays have not been cleared by [place] Food and Drug Administration. The clinical utility of theselaboratory values have not been fully established. PATIENT WAS FASTINGP ERFORMED BY: [employer] [facility] [id number] BY: Timeliner70 Dynamo MediaTransylvania Regional Hospital [id number] Lipoprotein.beta.sub particle molar conc 815 nmol/L Normal Comprehensiv e Internal Medicine Work Phone: Comment on above: Low < 1000 Moderate 1000 - 1299 Borderline-High 1300 - 1599 High 1600 - 2000 Very High > 2000 PATIENT WAS FASTINGP ERFORMED BY: HeartThis[address] [id number] BY: Timeliner70 PavonSpecific MediaTransylvania Regional Hospital [id number] Lipoprotein.beta.sub particle.small molar conc 485 nmol/L Normal [facility] Work Phone: Comment on above: PATIENT WAS FASTINGP ERFORMED BY: HeartThiston1447 [facility] [id number] BY: ShoutEm Warren RoadTransylvania Regional Hospital [id number] Triglyceride mass conc 132 mg/dL Normal 0-149 [facility] Work Phone: Comment on above: PATIENT WAS FASTINGP ERFORMED BY: Offermatica[address] [id number] BY: CLAER [facility] Dygnsn1710 [facility] [id number] METABOLIC PANEL, COMPREHENSI VE ([id number])Ordered By: Manager Internal on 01-20-2017 Albumin mass conc 4.2 g/dL Normal 3.5-4.8 Compreh ensive Internal Medicine Work Phone: Comment on above: PATIENT WAS FASTINGP ERFORMED BY: Offermatica[address] [id number] BY: [facility] Lopohn8812 [facility] [id number] Albumin/Globulin mass ratio 1.8 {ratio} Normal 1.2-2.2 [facility] Work Phone: Comment on above: PATIENT WAS FASTINGP ERFORMED BY: Offermatica[address] [id number] BY: CLARE [facility] Mcurny5818 [facility] [id number] ALP [Catalytic activity/Vol] 69 U/L Normal 39-117 [facility]; [facility] Work Phone: ALP enzyme act/vol 69 [iU]/L Normal 39-117 [facility] Work Phone: Comment on above: PATIENT WAS FASTINGP ERFORMED BY: Offermatica[address] [id number] BY: [facility] Tbqcat4603 [facility] [id number] ALT [Catalytic activity/Vol] 17 U/L Normal 0-32 [facility]; [facility] Work Phone: ALT enzyme act/vol 17 [iU]/L Normal 0-32 [facility] Work Phone: Comment on above: PATIENT WAS FASTINGP ERFORMED BY: THOMAS LabCoHealthSouth [facility] Hospital of UnionFybnzjlkiv1108 [facility] [id number] BY: CLARE [facility] Ipqnbi5907 Pavon RoadDublin [place] [id number] AST [Catalytic activity/Vol] 22 U/L Normal 0-40 [facility]; [facility] Work Phone: AST enzyme act/vol 22 [iU]/L Normal 0-40 Compre hensive Internal Medicine Work Phone: Comment on above: PATIENT WAS FASTINGP ERFORMED BY: THOMAS LabCo[address] [id number] BY: CLARE [facility] Huoqyp2738 Pavon RoadDublin [place] [id number] Bilirubin mass conc 0.4 mg/dL Normal 0.0-1.2 Compr ehensive Internal Medicine Work Phone: Comment on above: PATIENT WAS FASTINGP ERFORMED BY: LabCo[address] [id number] BY: CLARE [facility] Wezasu6656 Pav[address] RoadDublin [place] [id number] Calcium mass conc 9.8 mg/dL Normal 8.7-10.3 Compreh ensive Internal Medicine Work Phone: Comment on above: PATIENT WAS FASTINGP ERFORMED BY: THOMAS LabCoBrittany [place] [address]97 [facility] [id number] BY: CLARE [facility] Jmgtli5042 Pav[address] Roadblin [place] [id number] Chloride molar conc 104 mmol/L Normal 96-106 Compr ehensive Internal Medicine Work Phone: Comment on above: PATIENT WAS FASTINGP ERFORMED BY: [facility] [address] [id number] BY: CLARE [facility] Znncva2154 [address]on RoadDublin [place] [id number] CO2 molar conc 24 mmol/L Normal 18-29 Comprehens rasya Internal Medicine Work Phone: Comment on above: PATIENT WAS FASTINGP ERFORMED BY: LabCo[address] [id number] BY: [facility] Ogloud0804 [facility] [id number] Creatinine mass conc 1.23 mg/dL Abnormal 0.57-1.00 Comp rehensive Internal Medicine Work Phone: Comment on above: PATIENT WAS FASTINGP ERFORMED BY: LabSkyVu Entertainment[address] [id number] BY: [facility] Yrenuc1314 [facility] [id number] GFR/1.73 sq M predicted among blacks CKD-EPI vol rate/area (S/P/Bld) 48 mL/min/1.73 Abnormal Comprehensiv e Internal Medicine Work Phone: Comment on above: PATIENT WAS FASTINGP ERFORMED BY: Offermatica[address] [id number] BY: LabSky[employer] Entertainment Lonnjo2627 [facility] [id number] GFR/1.73 sq M predicted among non-blacks CKD-EPI vol rate/area (S/P/Bld) 42 mL/min/1.73 Abnormal [facility] Work Phone: Comment on above: PATIENT WAS FASTINGP ERFORMED BY: Offermatica[address] [id number] BY: [facility] Tssfmf5659 [facility] [id number] Globulin Calculated mass conc (S) 2.3 g/dL Normal 1.5-4.5 [facility] Work Phone: Globulin mass conc (S) 2.3 g/dL Normal 1.5-4.5 [facility] Work Phone: Comment on above: PATIENT WAS FASTINGP ERFORMED BY: Offermatica[address] [id number] BY: [facility] Zmdump9245 [facility] [id number] Glucose mass conc 94 mg/dL Normal 65-99 Compreh ensive Internal Medicine Work Phone: Comment on above: PATIENT WAS FASTINGP ERFORMED BY: [facility] [address] [id number] BY: CLARE [facility] Wuljgp3686 Pavon RoadDublin [place] [id number] Potassium molar conc 4.3 mmol/L Normal 3.5-5.2 Comp rehensive Internal Medicine Work Phone: Comment on above: PATIENT WAS FASTINGP ERFORMED BY: BN [facility] [address] [id number] BY: CLARE [facility] Uhkggy3752 [address] RoadOur Community Hospitalin [place] [id number] Protein mass conc 6.5 g/dL Normal 6.0-8.5 Compreh ensive Internal Medicine Work Phone: Comment on above: PATIENT WAS FASTINGP ERFORMED BY: [facility] [address] [id number] BY: CLARE [facility] Lfzesq4776 Pavon RoadOur Community Hospitalin [place] [id number] Sodium molar conc 145 mmol/L Abnormal 134-144 Compreh ensive Internal Medicine Work Phone: Comment on above: PATIENT WAS FASTINGP ERFORMED BY: [facility] [address] [id number] BY: CB [facility] Lgutet6149 [address] RoadDublin [place] [id number] Urea nitrogen mass conc 20 mg/dL Normal 8-27 [facility] Work Phone: Comment on above: PATIENT WAS FASTINGP ERFORMED BY: [facility] [address] [id number] BY: CB [facility] Qfzqdu0470 [address] RoadDublin [place] [id number] Urea nitrogen/Creatinine mass ratio 16 mg/mg Normal 12-28 [facility] Work Phone: Comment on above: PATIENT WAS FASTINGP ERFORMED BY: [facility] [address] [id number] BY: CLARE [facility] Jverqk4407 [address] RoadDublin [place] [id number] Microscopic ExaminationOrder ed By: Manager Internal on 01-20-2017 Bacteria LM.HPF #/area (Urine sed) None seen Normal [facility] Work Phone: Comment on above: PATIENT WAS FASTINGP ERFORMED BY: [address] [id number] BY: [facility] Pgcrtz0693 [address] RoadDublin [place] [id number] Casts LM Nom (Urine sed) Hyaline casts Normal [facility] Work Phone: Comment on above: PATIENT WAS FASTINGP ERFORMED BY: [address] [id number] BY: CLARE [facility] Oxystw8640 [address] RoadDublin [place] [id number] Casts LM Ql (Urine sed) Present Abnormal [facility] Work Phone: Comment on above: PATIENT WAS FASTINGP ERFORMED BY: [address] [id number] BY: [facility] Vxwwtc0751 [address] RoadDublin [place] [id number] Epithelial cells LM.HPF #/area (Urine sed) 0-10 Normal 0 - 10 [facility] Work Phone: Comment on above: PATIENT WAS FASTINGP ERFORMED BY: [address] [id number] BY: [facility] Qiauwg0207 [address] RoadDublin [place] [id number] Mucus LM Ql (Urine sed) Present Normal [facility] Work Phone: Mucus Ql (Urine sed) Present Normal Comp rehensive Internal Medicine Work Phone: Comment on above: PATIENT WAS FASTINGP ERFORMED BY: [address] [id number] BY: [facility] Rubprc8138 [address] RoadDublin [place] [id number] RBC LM.HPF #/area (Urine sed) 0-2 Normal 0 - 2 [facility] Work Phone: Comment on above: PATIENT WAS FASTINGP ERFORMED BY: Lab[address] [id number] BY: CLARE [facility] Azrwuk2531 [address] RoadDublin [place] [id number] WBC LM.HPF #/area (Urine sed) 0-5 Normal 0 - 5 [facility] Work Phone: Comment on above: PATIENT WAS FASTINGP ERFORMED BY: [address] [id number] BY: CLARE LabCoRichard Ville 6228770 [facility]in [place] [id number] URINALYSIS, W/ MICRO ([id number]) Ordered By: Manager Internal on 01-20-2017 Appearance Nom (U) Clear Normal Compre hensive Internal Medicine Work Phone: Comment on above: PATIENT WAS FASTINGP ERFORMED BY: [address] [id number] BY: CLARE [facility] Xmioev5114 [address] Roadblin [place] [id number] Bilirubin Ql (U) Negative Normal Comprehe nsive Internal Medicine Work Phone: Comment on above: PATIENT WAS FASTINGP ERFORMED BY: Lab[address] [id number] BY: [facility] Izfenb3819 [address] RoadDublin [place] [id number] Bilirubin Ql (U) Negative Normal Comprehe nsive Internal Medicine; [facility] Work Phone: Color Nom (U) Yellow Normal Comprehensi ve Internal Medicine Work Phone: Comment on above: PATIENT WAS FASTINGP ERFORMED BY: [address] [id number] BY: CLARE [facility] Kcyxpb0530 [address] RoadDublin [place] [id number] Glucose Ql (U) Negative Normal Comprehens raysa Internal Medicine Work Phone: Comment on above: PATIENT WAS FASTINGP ERFORMED BY: Offermatica Cxytzvorpr[address] [id number] BY: CLARE LabMapat Lozxzt5619 [facility] RoadTransylvania Regional Hospital [id number] Glucose Ql (U) Negative Normal Comprehens raysa [facility]; [facility] Work Phone: Hemoglobin Ql (U) Negative Normal Compreh ensive Internal Medicine Work Phone: Comment on above: PATIENT WAS FASTINGP ERFORMED BY: Offermatica Hwlmhhrbif[address] [id number] BY: CLARE Chanellin6370 [facility] RoadTransylvania Regional Hospital [id number] Hemoglobin Ql (U) Negative Normal Compreh ensive Internal Medicine; [facility] Work Phone: Hemoglobin Test strip Ql (U) Negative Normal [facility] Work Phone: Ketones Ql (U) Negative Normal Comprehens raysa [facility] Medicine Work Phone: Comment on above: PATIENT WAS FASTINGP ERFORMED BY: Offermatica[address] [id number] BY: CLARE OffermaticaRichard Ville 6228770 [facility] [id number] Ketones Ql (U) Negative Normal Comprehens raysa [facility] Medicine; [facility] Work Phone: Leukocyte esterase Test strip Ql (U) 2+ Abnormal [facility] Work Phone: Comment on above: PATIENT WAS FASTINGP ERFORMED BY: Offermatica[address] [id number] BY: CLARE Cellerant TherapeuticsAmanda Ville 9405370 [facility] [id number] Microscopic observation LM Nom (Urine sed) See below: Normal [facility] Work Phone: Comment on above: Microscopic was no cated and was performed. PATIENT WAS FASTINGP ERFORMED BY: Lab[address] [id number] BY: CLARE [facility] Xgdajt6302 [address] RoadDuin [place] [id number] Nitrite Ql (U) Negative Normal Comprehens raysa [facility] Medicine Work Phone: Comment on above: PATIENT WAS FASTINGP ERFORMED BY: [address] [id number] BY: LabCox South Axwynh0849 [address] RoadDuin [place] [id number] Nitrite Ql (U) Negative Normal Comprehens raysa [facility]; [facility] Work Phone: Nitrite Test strip Ql (U) Negative Normal [facility] Work Phone: pH (U) 6.0 [pH] Normal 5.0-7.5 [facility] Work Phone: Comment on above: PATIENT WAS FASTINGP ERFORMED BY: [address] [id number] BY: [facility]6370 [facility] [id number] pH Test strip (U) 6.0 [pH] Normal 5.0-7.5 Compreh ensive Internal Medicine Work Phone: Protein Ql (U) Negative Normal Comprehens raysa [facility] Work Phone: Comment on above: PATIENT WAS FASTINGP ERFORMED BY: [address] [id number] BY: [facility]6370 [facility] [id number] Protein Ql (U) Negative Normal Comprehens raysa [facility] Medicine; [facility] Work Phone: Protein Test strip Ql (U) Negative Normal [facility] Work Phone: Specific gravity Relative Density (U) 1.016 1 Normal 1.005-1.03 0 [facility] Work Phone: Comment on above: PATIENT WAS FASTINGP ERFORMED BY: Lab03 [address] Streetlington [place] [id number] BY: CLARE LabCorewell [facility]6370 [facility] [id number] Urobilinogen (U) [Mass/Vol] 0.2 mg/dL Normal 0.2-1.0 [facility]; [facility] Work Phone: Urobilinogen Test strip mass conc (U) 0.2 mg/dL Normal 0.2-1.0 Comprehensiv e Internal Medicine Work Phone: Comment on above: PATIENT WAS FASTINGP ERFORMED BY: LabSkyVu Entertainment[address] [id number] BY: CLARE LabCorewell Health [facility]odgett Hospital6370 [facility] [id number] Lab Report: Lipid Profileon 01-13-2017 Cholesterol 119 mg/dL Normal [facility] Work Phone: Comment on above: <200 mg/dL Desirable 200-240 mg/dL Borderline >240 mg/dL High Risk Order Date: 06/12/16 Order Date: 06/12/16Comments: 12 hours fasting, may have water.[facility] [address] [place], [address] HDL Cholesterol 46 mg/dL Normal [facility] [employer] Work Phone: Comment on above: The drugs N-Acetylcy steine and Metamizole may falsely deressthis assay. Reference Range HDL <40 mg/dL Low HDL Cholesterol HDL >or= 60 mg/dL High HDL Cholesterol Order Date: 06/12/16 Order Date: 06/12/16Comments: 12 hours fasting, may have water.[facility] N[address]nt[address] [place], [address] LDL Cholesterol 53 mg/dL Normal 0-130 [facility] [employer] Work Phone: Comment on above: Order Date: 06/12/16 Order Date: 06/12/16Comments: 12 hours fasting, may have water.[facility] V[address] [place], [address] Triglyceride 101 mg/dL Normal [facility] [employer] Work Phone: Comment on above: The drugs N-Acetylcy steine and Metamizole may falsely deressthis assay.Serum Triglycerides Reference Interval Normal <150 mg/dL Borderline high 150 - 199 mg/dL High 200 - 499 mg/dL Very High > or = 500 mg/dL Order Date: 06/12/16 Order Date: 06/12/16Comments: 12 hours fasting, may have water.[facility] U[address]nfbbwgi[address] [place], [address] very low density lipoproteins 20 mg/dL Invalid Interpretation Code 5-40 [place] [employer] Work Phone: Lab Report: Liver Profileon 01-13-2017 Alanine aminotransferase (ALT) 29 U/L Normal 12-78 [place] [facility] Work Phone: Comment on above: Order Date: 06/12/16 Order Date: 06/12/16Comments: 12 hours fasting, may have water.[facility] [address] [place], [place], [address] Albumin 3.6 g/dL Normal 3.4-5.0 [place] [employer] Work Phone: Comment on above: Order Date: 06/12/16 Order Date: 06/12/16Comments: 12 hours fasting, may have water.[facility] [address]ulyjj[address] [place], [address] Alkaline phosphatase (ALP) 79 U/L Normal 45-117 [facility] Work Phone: Comment on above: Order Date: 06/12/16 Order Date: 06/12/16Comments: 12 hours fasting, may have water.[facility] A[address]ju[address] [place], [address] Aspartate aminotransferase (AST) 17 U/L Normal 15-37 [facility] Work Phone: Comment on above: Order Date: 06/12/16 Order Date: 06/12/16Comments: 12 hours fasting, may have water.[facility] [address] [place], [address] Bilirubin (direct) 0.13 mg/dL Normal 0.00-0.30 [facility] Work Phone: Comment on above: Order Date: 06/12/16 Order Date: 06/12/16Comments: 12 hours fasting, may have water.[facility] Umqmd[address]qm[address] [place], [address] Bilirubin (total) 0.50 mg/dL Normal 0.20-1.00 [facility] Work Phone: Comment on above: Order Date: 06/12/16 Order Date: 06/12/16Comments: 12 hours fasting, may have water.[facility] [address] [place], [address] Globulin 2.9 g/dL Normal 2.3-3.5 [facility] Work Phone: Protein 6.5 g/dL Normal 6.4-8.2 [facility] Work Phone: Comment on above: Order Date: 06/12/16 Order Date: 06/12/16Comments: 12 hours fasting, may have water.[facility] [address] [place], [address] Lipid ProfileOrdered By: IG [employer]uit[employer] Cloth Finisher on 01-13-2017 Cholesterol in LDL mass conc 53 mg/dL Normal 0-130 [facility] Work Phone: Cholesterol in VLDL mass conc 20 mg/dL Normal 5-40 [facility] Work Phone: Lipid Profile 20 mg/dL Normal 5-40 Comprehensi ve Internal Medicine Work Phone: Comment on above: Order Date: 06/12/16 Order Date: 06/12/16Comments: 12 hours fasting, may have water.[facility] [address] [place], [address] Liver ProfileOrdered By: Sys tem Cloth Finisher on 01-13-2017 Globulin mass conc (S) 2.9 g/dL Normal 2.3-3.5 [facility] Work Phone: Comment on above: Order Date: 06/12/16 Order Date: 06/12/16Comments: 12 hours fasting, may have water.[facility] Aqugstokzt[address] [place], [address] MICROALBUMINOrdered By: Syst em Cloth Finisher on 08-20-2016 Albumin DL <= 20 mg/L (U) [Mass/Vol] mg/dL Normal Comprehensiv e Internal Medicine; [facility] Work Phone: Albumin DL <= 20 mg/L mass conc (U) mg/dL Normal [facility] Work Phone: Comment on above: recheck in 3 months; PATIENT NOT FASTINGPERFORMED BY: CLARE Hotelbar6370 [facility]alUNC [facility] [id number] Albumin/Creatinine mass ratio (U) <5.9 Normal 0.0-30.0 [facility] Work Phone: Comment on above: recheck in 3 months; PATIENT NOT FASTINGPERFORMED BY: CLARE LabYnvisible6370 [facility] BehavioralUNC [facility] [id number] Creatinine mass conc (U) 50.6 mg/dL Normal [facility] Work Phone: Comment on above: recheck in 3 months; PATIENT NOT FASTINGPERFORMED BY: [employer] LabSimplicita SoftwareJgyjtx0994 [address] AcunoteUNC Health Blue Ridge [id number] Renal function Panel ([id number]) Ordered By: Manager Internal on 08-20-2016 Albumin mass conc 4.2 g/dL Normal 3.5-4.8 Compreh ensive Internal Medicine Work Phone: Comment on above: recheck in 3 months; PATIENT NOT FASTINGPERFORMED BY: CLARE [facility] Tfplvs4164 [address] AcunoteUNC Health Blue Ridge [id number]; fu 12- Calcium mass conc 9.8 mg/dL Normal 8.7-10.3 Compreh ensive Internal Medicine Work Phone: Comment on above: recheck in 3 months; PATIENT NOT FASTINGPERFORMED BY: CB [facility] Ewutgm1845 [address] RoadDublin [place] [id number]; fu 12- Chloride molar conc 102 mmol/L Normal 96-106 Compr ehensive Internal Medicine Work Phone: Comment on above: Please note refere nce interval change recheck in 3 months; PATIENT NOT FASTINGPERFORMED BY: CB [facility] Dnzozg6938 [address] RoadDublin [place] [id number]; fu 12- CO2 molar conc 28 mmol/L Normal 18-29 Comprehens raysa [facility] Medicine Work Phone: Comment on above: recheck in 3 months; PATIENT NOT FASTINGPERFORMED BY: CB [facility] Jrusgy1698 [address] Roadblin [place] [id number]; fu 12- Creatinine mass conc 1.13 mg/dL Abnormal 0.57-1.00 Comp rehensive Internal Medicine Work Phone: Comment on above: recheck in 3 months; PATIENT NOT FASTINGPERFORMED BY: CB [facility] Iptury0977 [address] RoadDuin [place] [id number]; fu 12- GFR/1.73 sq M predicted among blacks CKD-EPI vol rate/area (S/P/Bld) 53 mL/min/1.73 Abnormal Comprehensiv e Internal Medicine Work Phone: Comment on above: recheck in 3 months; PATIENT NOT FASTINGPERFORMED BY: CB [facility] Biaseh9678 [facility] RoadOur Community Hospitalin [place] [id number]; fu 12- GFR/1.73 sq M predicted among non-blacks CKD-EPI vol rate/area (S/P/Bld) 46 mL/min/1.73 Abnormal [facility] Work Phone: Comment on above: recheck in 3 months; PATIENT NOT FASTINGPERFORMED BY: CB [facility] Fajjni2148 [address] RoadDublin [place] [id number]; fu 12- Glucose mass conc 79 mg/dL Normal 65-99 Compreh ensive Internal Medicine Work Phone: Comment on above: recheck in 3 months; PATIENT NOT FASTINGPERFORMED BY: CB [facility] Ehazit3633 [address] RoadDublin [place] [id number]; fu 12- Phosphate mass conc 3.4 mg/dL Normal 2.5-4.5 [facility] Centerensive [facility] Work Phone: Comment on above: recheck in 3 months; PATIENT NOT FASTINGPERFORMED BY: CB [facility] Ibsmit2682 [address] RoadDublin [place] [id number]; fu 12- Potassium molar conc 4.0 mmol/L Normal 3.5-5.2 [facility]ensive [facility] Work Phone: Comment on above: recheck in 3 months; PATIENT NOT FASTINGPERFORMED BY: CB [facility] Nnsear1660 [address] RoadDublin [place] [id number]; fu 12- Sodium molar conc 144 mmol/L Normal 134-144 [facility] Work Phone: Comment on above: Please note refere nce interval change recheck in 3 months; PATIENT NOT FASTINGPERFORMED BY: CB [facility] Lmwptv7935 [address] RoadDublin [place] [id number]; fu 12 Urea nitrogen mass conc 20 mg/dL Normal 8-27 [facility] Work Phone: Comment on above: recheck in 3 months; PATIENT NOT FASTINGPERFORMED BY: CB [facility] Cuylpz1149 [address] RoadDublin [place] [id number]; fu 08-27 Urea nitrogen/Creatinine mass ratio 18 mg/mg Normal 11- [facility] Work Phone: Comment on above: recheck in 3 months; PATIENT NOT FASTINGPERFORMED BY: CB [facility] Fxyyao8858 [address] RoadDublin [place] [id number]; fu 08-27 UPEP ([id number])Ordered By: Syst em Cloth Finisher on 08-20-2016 Albumin/Protein.tota l Elph mass fraction (U) 26.0 % Normal [facility] Work Phone: Comment on above: recheck in 3 months; PATIENT NOT FASTINGPERFORMED BY: CB [facility] [id number] [address] RoadDublin [place] [id number] Alpha 1 globulin/Protein.tot al Elph mass fraction (U) 6.4 % Normal [facility] Work Phone: Comment on above: recheck in 3 months; PATIENT NOT FASTINGPERFORMED BY: CB [facility] [id number] [address]on RoadDublin [place] [id number] Alpha 2 globulin/Protein.tot al Elph mass fraction (U) 10.8 % Normal [facility] Work Phone: Comment on above: recheck in 3 months; PATIENT NOT FASTINGPERFORMED BY: CB [facility] [id number] [address] RoadDublin [place] [id number] Beta globulin/Protein.tot al Elph mass fraction (U) 32.7 % Normal [facility] Work Phone: Comment on above: recheck in 3 months; PATIENT NOT FASTINGPERFORMED BY: CB [facility] [id number] [address] RoadDublin [place] [id number] Gamma globulin/Protein.tot al Elph mass fraction (U) 24.0 % Normal [facility] Work Phone: Comment on above: recheck in 3 months; PATIENT NOT FASTINGPERFORMED BY: CB [facility] [id number] [address] RoadDublin [place] [id number] Laboratory comment Albin (Report) [facility] [place] Normal [facility] Work Phone: Comment on above: Protein electrophore sis scan will follow via computer, mail, orcourier delivery. recheck in 3 months; PATIENT NOT FASTINGPERFORMED BY: CB [facility] Hfeuqn0434 [address] RoadDublin [place] [id number] Protein mass conc (U) 6.6 mg/dL Normal [facility] Work Phone: Comment on above: recheck in 3 months; PATIENT NOT FASTINGPERFORMED BY: CB [facility] Ymproc3661 [address] RoadDublin [place] [id number] Protein.monoclonal/P rotein.total Elph mass fraction (U) Not Observed Normal [facility] Work Phone: Comment on above: recheck in 3 months; PATIENT NOT FASTINGPERFORMED BY: CB [facility] Gpjrgd1290 [address] RoadDublin [place] [id number] CREATININE CLEARANCE ([id number]) Ordered By: Manager Internal on 06-16-2016 Creatinine mass conc 1.35 mg/dL Abnormal 0.57-1.00 Comp rehensive Internal Medicine Work Phone: Comment on above: PATIENT NOT FASTINGP ERFORMED BY: CB [facility] Lfiezb2050 [address] RoadDublin [place] [id number] Creatinine mass conc (U) 38.1 mg/dL Normal [facility] Work Phone: Comment on above: PATIENT NOT FASTINGP ERFORMED BY: CB [facility] Gunrdq3581 [address] RoadDublin [place] [id number] Creatinine mass/time (24H U) 895 {mg/24_hr} Normal 800-1800 [facility] Work Phone: Comment on above: PATIENT NOT FASTINGP ERFORMED BY: CB [facility] Xerpgj1270 [address] RoadDublin [place] [id number] Creatinine renal clearance 24H Flow (Urine and Serum or Plasma) 46 mL/min Abnormal 88-128 [facility] Work Phone: Comment on above: The above range is b ased on 1.73 square meter average body surfacearea. PATIENT NOT FASTINGP ERFORMED BY: CB [facility] Uzxwin0457 [address] RoadDublin [place] [id number] GFR/1.73 sq M predicted among blacks CKD-EPI vol rate/area (S/P/Bld) 43 mL/min/1.73 Abnormal Comprehensiv e [facility] Work Phone: Comment on above: PATIENT NOT FASTINGP ERFORMED BY: CB [facility] Membcp1877 [address] RoadDublin [place] [id number] GFR/1.73 sq M predicted among non-blacks CKD-EPI vol rate/area (S/P/Bld) 38 mL/min/1.73 Abnormal [facility] Work Phone: Comment on above: PATIENT NOT FASTINGP ERFORMED BY: CB [facility] Savyzq1292 [address] RoadDublin [place] [id number] MICROALBUMIN 24 HOUR OR RAND OM ([id number])Ordered By: Manager Internal on 06-16-2016 Albumin DL <= 20 mg/L (U) [Mass/Vol] mg/dL Normal Com[facility]; [facility] Work Phone: Albumin DL <= 20 mg/L mass conc (U) mg/dL Normal [facility] Work Phone: Comment on above: PATIENT NOT FASTINGP ERFORMED BY: CB [facility] Fnkazr6066 [address] Roadblin [place] [id number] Albumin/Creatinine mass ratio (U) <7.9 Normal 0.0-30.0 [facility] Work Phone: Comment on above: PATIENT NOT FASTINGP ERFORMED BY: CB [facility] Jsplor9201 [address] [facility] [id number] Protein Electro.,SOrdered By : Manager Internal on 06-12-2016 Albumin mass conc 4.2 g/dL Normal 2.9-4.4 Compreh ensive Internal Medicine Work Phone: Comment on above: PATIENT NOT FASTINGP ERFORMED BY: CB [facility] Hhgpdr4986 Pavon RoadOur Community Hospitalin [place] [id number] Albumin/Globulin mass ratio 1.4 {ratio} Normal 0.7-1.7 [facility] Work Phone: Comment on above: PATIENT NOT FASTINGP ERFORMED BY: CB [facility] Qvllrs6179 [address] [facility]in [place] [id number] Alpha 1 globulin Elph mass conc 0.3 g/dL Normal 0.0-0.4 [facility] Work Phone: Comment on above: PATIENT NOT FASTINGP ERFORMED BY: CB [facility] Mdldrb2039 [address] RoadDublin [place] [id number] Alpha 2 globulin Elph mass conc 0.8 g/dL Normal 0.4-1.0 [facility] Work Phone: Comment on above: PATIENT NOT FASTINGP ERFORMED BY: CB [facility] Mqqmdt6129 [address] RoadDublin [place] [id number] Beta globulin Elph mass conc 1.0 g/dL Normal 0.7-1.3 [facility] Work Phone: Comment on above: PATIENT NOT FASTINGP ERFORMED BY: CB [facility] [id number] [facility] [facility] [id number] Gamma globulin Elph mass conc 0.9 g/dL Normal 0.4-1.8 [facility] Work Phone: Comment on above: PATIENT NOT FASTINGP ERFORMED BY: CB [facility] Odtclh8516 [facility] [facility] [id number] Globulin Calculated mass conc (S) 2.9 g/dL Normal 2.2-3.9 [facility] Work Phone: Globulin mass conc (S) 2.9 g/dL Normal 2.2-3.9 [facility] Work Phone: Comment on above: PATIENT NOT FASTINGP ERFORMED BY: CB [facility] Ydachm4897 [address] [facility] CenterAppRedeemUNC [facility] [id number] Laboratory comment Albin (Report) [facility] Normal [facility] Work Phone: Comment on above: Protein electrophore sis scan will follow via computer, mail, orcourier delivery. PATIENT NOT FASTINGP ERFORMED BY: CB [facility] Itstdr1497 [facility] [facility] [id number] Protein mass conc 7.1 g/dL Normal 6.0-8.5 Compreh ensive Internal Medicine Work Phone: Comment on above: PATIENT NOT FASTINGP ERFORMED BY: CB [facility] Vmvysk8503 [facility] [facility] [id number] Protein.monoclonal Elph mass conc Not Observed Normal [facility] Work Phone: Comment on above: PATIENT NOT FASTINGP ERFORMED BY: CB [facility] Gvnqpu4707 [facility] [id number] Unable to VoidOrdered By: Yusuf stem Cloth Finisher on 06-12-2016 Unable to Void [facility] Normal Comprehens raysa [facility] Work Phone: Comment on above: The patient was not able to render a urine sample and has beeninstructed to return for a urine collection at their earliestconvenience. The urine testing that you have requested hasbeen deleted from this report. When the patient returns andprovides a urine specimen, the urine testing will be performedand separately reported. 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 05-29-2016 Calcium 9.5 mg/dL Invalid Interpretation Code [employer] Work Phone: Chloride 104 mmol/L Invalid Interpretation Code [employer] Work Phone: CO2 26 mmol/L Invalid Interpretation Code [employer] Work Phone: Creatinine 1.12 mg/dL High [employer] Work Phone: Erythrocytes (RBC) 5.01 10*6/uL Invalid Interpretation Code [employer] Work Phone: Globulin 2.1 g/dL Invalid Interpretation Code [employer] Work Phone: Glucose 94 mg/dL Invalid Interpretation Code [employer] Work Phone: HbA1c 6.1 % High [employer] Work Phone: Hematocrit (HCT) 42.9 % Invalid Interpretation Code [employer] Work Phone: Hemoglobin (HGB) 14.0 g/dL Invalid Interpretation Code [employer] Work Phone: MCH 27.9 pg Invalid Interpretation Code [employer] Work Phone: MCHC 32.6 g/dL Invalid Interpretation Code [employer] Work Phone: MCV 85.6 fL Invalid Interpretation Code [employer] Work Phone: Platelets 199 10*3/mm3 Invalid Interpretation Code [employer] Work Phone: PMV by Johnathan 11.7 fL Invalid Interpretation Code [employer] Work Phone: Potassium 4.3 mmol/L Invalid Interpretation Code [employer] Work Phone: RDW-CA 14.0 % Invalid Interpretation Code [facility] Work Phone: Sodium 144 mmol/L Invalid Interpretation Code [facility] Work Phone: Thyroid stimulating hormone (TSH) 2.530 u[iU]/mL Invalid Interpretation Code [facility] Work Phone: Urea nitrogen 19 mg/dL Invalid Interpretation Code [facility] Work Phone: WBC (Leukocytes) 6.6 10*3/uL Invalid Interpretation Code [facility] Work Phone: Office Visit: Establish PCPo n 03-02-2016 Alcoholism counseling (procedure) no Invalid Interpretation Code [facility] Work Phone: Documentation of current medications (procedure) Done Invalid Interpretation Code [facility] Work Phone: Tobacco smoking status NHIS Never Invalid Interpretation Code [facility] Work Phone: Tobacco use CPHS Never smoker Invalid Interpretation Code [facility] Work Phone: Chart Maintenanceon 01-16-20 16 Left ventricular Ejection fraction 50 % Invalid Interpretation Code [facility] Work Phone: Lipid ProfileOrdered By: Yamini tem Cloth Finisher on 01-15-2016 Cholesterol in HDL mass conc 46 mg/dL Normal [facility] Work Phone: Comment on above: Reference Range HDL <40 mg/dL Low HDL Cholesterol HDL >or= 60 mg/dL High HDL Cholesterol [facility] [address] [place], [place], [id number] Cholesterol in LDL mass conc 59 mg/dL Normal 0-130 [facility] Work Phone: Cholesterol in LDL mass conc 59 mg/dL Normal 0-130 [facility] Work Phone: Comment on above: [facility] [address] [place], [address] Cholesterol in VLDL mass conc 34 mg/dL Normal 5-40 [facility] Work Phone: Cholesterol mass conc 139 mg/dL Normal [facility] Work Phone: Comment on above: <200 mg/dL Desirable 200-240 mg/dL Borderline >240 mg/dL High Risk [facility] [address] [place], [place], [id number] Triglyceride mass conc 169 mg/dL Normal [facility] Work Phone: Comment on above: Serum Triglycerides Reference Interval Normal <150 mg/dL Borderline high 150 - 199 mg/dL High 200 - 499 mg/dL Very High > or = 500 mg/dL [facility] [address] [place], [place], [id number] Lipid Profile 34 mg/dL Normal 5-40 [facility] Work Phone: Comment on above: [facility] [address] [place], [address] Liver ProfileOrdered By: Yamini tem Cloth Finisher on 01-15-2016 Albumin mass conc 3.9 g/dL Normal 3.4-5.0 Compreh [facility] Internal Medicine Work Phone: Comment on above: [facility] [address] [place], [place], [phone] ; managed by dr barney ALP enzyme act/vol 92 U/L Normal 50-136 [facility] Internal Medicine Work Phone: Comment on above: [facility] [address] [place], [place], [phone] ; managed by dr barney ALT enzyme act/vol 29 U/L Normal 12-78 [facility] Internal Medicine Work Phone: Comment on above: [facility] [address] [place], [place], [phone] ; managed by dr barney AST enzyme act/vol 25 U/L Normal 15-37 [facility] Internal Medicine Work Phone: Comment on above: [facility] [address] [place], [place], [address] ; managed by dr barney Bilirubin mass conc 0.50 mg/dL Normal 0.20-1.00 [facility] Internal Medicine Work Phone: Comment on above: [facility] [address] [place], [place], [phone] ; managed by dr barney Bilirubin.direct mass conc 0.13 mg/dL Normal 0.00-0.30 [facility] Work Phone: Comment on above: [facility] [address] [place], [place], [phone] ; managed by dr barney Globulin Calculated mass conc (S) 3.3 g/dL Normal 2.3-3.5 [facility] Work Phone: Globulin mass conc (S) 3.3 g/dL Normal 2.3-3.5 [facility] Work Phone: Comment on above: [facility] [address] [place], [place], [id number] ; managed by dr barney Protein mass conc 7.2 g/dL Normal 6.4-8.2 Compreh [facility] Work Phone: Comment on above: [facility] [address] [place], [place], [phone] ; managed by dr barney Lipid ProfileOrdered By: Yamini [facility] Cloth Finisher on 07-12-2015 Cholesterol in HDL mass conc 45 mg/dL Normal [facility] Work Phone: Comment on above: Reference Range HDL <40 mg/dL Low HDL Cholesterol HDL >or= 60 mg/dL High HDL Cholesterol [facility] [address] [place], [place], [id number] Cholesterol in LDL mass conc 62 mg/dL Normal 0-130 [facility] Work Phone: Cholesterol in LDL mass conc 62 mg/dL Normal 0-130 [facility] Work Phone: Comment on above: [facility] [address] [place], [place], [id number] Cholesterol in VLDL mass conc 33 mg/dL Normal 5-40 [facility] Work Phone: Cholesterol mass conc 140 mg/dL Normal [facility] Work Phone: Comment on above: <200 mg/dL Desirable 200-240 mg/dL Borderline >240 mg/dL High Risk [facility] [address] [place], [place], [address] Triglyceride mass conc 165 mg/dL Normal [facility] Work Phone: Comment on above: Serum Triglycerides Reference Interval Normal <150 mg/dL Borderline high 150 - 199 mg/dL High 200 - 499 mg/dL Very High > or = 500 mg/dL [facility] [address] [place], [place], [phone] Lipid Profile 33 mg/dL Normal 5-40 Comprehensi Internal Medicine Work Phone: Comment on above: [facility] [address] [place], [place], [id number] Liver ProfileOrdered By: Yamini tem Cloth Finisher on 07-12-2015 Albumin mass conc 3.8 g/dL Normal 3.4-5.0 Compreh [facility] Work Phone: Comment on above: [facility] [address] [place], [place], [phone] ALP enzyme act/vol 80 U/L Normal 50-136 [facility]pre [facility] Work Phone: Comment on above: [facility] [address] [place], [place], [id number] ALT enzyme act/vol 37 U/L Normal 12-78 Compre hensive Internal Medicine Work Phone: Comment on above: [facility] [address] [place], [place], [address] AST enzyme act/vol 23 U/L Normal 15-37 Compre [facility] Work Phone: Comment on above: [facility] [address] [place], [place], [address] Bilirubin mass conc 0.50 mg/dL Normal 0.20-1.00 Compr ehensive Internal Medicine Work Phone: Comment on above: [place] [address] [place], [place], [id number] Bilirubin.direct mass conc 0.09 mg/dL Normal 0.00-0.30 [facility] Work Phone: Comment on above: [facility] [address] [place], [place], [id number] Globulin Calculated mass conc (S) 3.0 g/dL Normal 2.3-3.5 [facility] Work Phone: Globulin mass conc (S) 3.0 g/dL Normal 2.3-3.5 [facility] Work Phone: Comment on above: [place] [address] [place], [place], [phone] Protein mass conc 6.8 g/dL Normal 6.4-8.2 Compreh ensive Internal Medicine Work Phone: Comment on above: [place] [address] [place], [place], [phone] Urinalysis, Office ([id number])Or dered By: Gucci Henao on 06-07-2015 Bilirubin Ql (U) Negative Normal Comprehe nsive Internal Medicine Work Phone: Bilirubin Ql (U) Negative Normal Comprehe nsive Internal Medicine; [facility] Work Phone: Glucose Test strip (U) [Mass/Vol] Negative Normal [facility]; [facility] Work Phone: Glucose Test strip mass conc (U) Negative Normal [facility] Work Phone: Hemoglobin Ql (U) Non Hemolyzed Trace Normal [facility] Work Phone: Hemoglobin Test strip Ql (U) Non Hemolyzed Trace Normal Comprehensiv e Internal Medicine Work Phone: Ketones Ql (U) Negative Normal Comprehens [facility] Work Phone: Ketones Ql (U) Negative Normal Comprehens [facility]a [facility]; [facility] Work Phone: Leukocyte esterase Test strip Ql (U) Small Normal [facility] Work Phone: Nitrite Ql (U) Negative Normal Comprehens raysa [facility] Work Phone: Nitrite Ql (U) Negative Normal Comprehens raysa [facility]; [facility] Work Phone: Nitrite Test strip Ql (U) Negative Normal [facility] Work Phone: pH (U) 5 [pH] Abnormal [facility] Work Phone: pH Test strip (U) 5 [pH] Abnormal Compreh ensive Internal Medicine Work Phone: Protein Ql (U) Negative Normal Comprehens rays[facility] Work Phone: Protein Ql (U) Negative Normal Comprehens [facility]a [facility]; [facility] Work Phone: Protein Test strip Ql (U) Negative Normal [facility] Work Phone: Specific gravity Relative Density (U) 1.025 1 Normal Comprehensi ve Internal Medicine Work Phone: Urobilinogen mass/time (24H U) Normal Normal [facility] Work Phone: Urinalysis, Office ([id number])Or dered By: BARBER Lowery on 03-29-2015 Bilirubin Ql (U) Negative Normal Comprehe nsive Internal Medicine Work Phone: Bilirubin Ql (U) Negative Normal Comprehe nsive Internal Medicine; [facility] Work Phone: Glucose Test strip (U) [Mass/Vol] Negative Normal [facility]; [facility] Work Phone: Glucose Test strip mass conc (U) Negative Normal [facility] Work Phone: Hemoglobin Ql (U) Negative Normal Compreh ensive Internal Medicine Work Phone: Hemoglobin Ql (U) Negative Normal Compreh ensive Internal Medicine; [facility] Work Phone: Hemoglobin Test strip Ql (U) Negative Normal [facility] Work Phone: Ketones Ql (U) Negative Normal Comprehens raysa [facility] Work Phone: Ketones Ql (U) Negative Normal Comprehens raysa [facility]; [facility] Work Phone: Leukocyte esterase Test strip Ql (U) Small Normal [facility] Work Phone: Nitrite Ql (U) Negative Normal Comprehens raysa [facility] Work Phone: Nitrite Ql (U) Negative Normal Comprehens raysa [facility]; [facility] Work Phone: Nitrite Test strip Ql (U) Negative Normal [facility] Work Phone: pH (U) 6.0 [pH] Normal [facility] Work Phone: pH Test strip (U) 6.0 [pH] Normal Compreh ensive Internal Medicine Work Phone: Protein Ql (U) Negative Normal Comprehens raysa [facility] Work Phone: Protein Ql (U) Negative Normal Comprehens raysa [facility]; [facility] Work Phone: Protein Test strip Ql (U) Negative Normal [facility] Work Phone: Specific gravity Relative Density (U) 1.025 1 Normal Comprehensi ve Internal Medicine Work Phone: Urobilinogen mass/time (24H U) 2 mg/dL Normal [facility] Work Phone: Office Visiton 01-15-2015 cardiac risk group C Invalid Interpretation Code [facility] Work Phone: General cardiovascular disease 10Y risk [#] [place]Alex'Agosherry de anda N/A Invalid Interpretation Code [facility] Work Phone: Lipid ProfileOrdered By: Yamini tem Cloth Finisher on 01-09-2015 Cholesterol in HDL mass conc 40 mg/dL Normal [facility] Work Phone: Comment on above: Reference Range HDL <40 mg/dL Low HDL Cholesterol HDL >or= 60 mg/dL High HDL Cholesterol Test performed at:[facility] [address] [place] [address] Cholesterol in LDL mass conc 67 mg/dL Normal 0-130 [facility] Work Phone: Cholesterol in LDL mass conc 67 mg/dL Normal 0-130 [facility] Work Phone: Comment on above: Test performed at:[facility] [address] [place] [address] Cholesterol in VLDL mass conc 35 mg/dL Normal 5-40 [facility] Work Phone: Cholesterol mass conc 142 mg/dL Normal [facility] Work Phone: Comment on above: <200 mg/dL Desirable 200-240 mg/dL Borderline >240 mg/dL High Risk Test performed at:[facility] [address] [place] [address] Triglyceride mass conc 173 mg/dL Normal 0-199 [facility] Work Phone: Comment on above: Serum Triglycerides Reference Interval Normal <150 mg/dL Borderline high 150 - 199 mg/dL High 200 - 499 mg/dL Very High > or = 500 mg/dL Test performed at:[facility] [address] [place] [address] Lipid Profile 35 mg/dL Normal 5-40 Comprehensi ve Internal Medicine Work Phone: Comment on above: Test performed at:[facility] [address] [place] [address] Liver ProfileOrdered By: Yamini tem Cloth Finisher on 01-09-2015 Albumin mass conc 3.9 g/dL Normal 3.4-5.0 Compreh ensive Internal Medicine Work Phone: Comment on above: Test performed at:[facility] [address] [place] [address] ALP enzyme act/vol 84 U/L Normal 50-136 Compre hensive Internal Medicine Work Phone: Comment on above: Test performed at:[facility] [address] [place] [address] ALT enzyme act/vol 40 U/L Normal 12-78 [facility] Internal Medicine Work Phone: Comment on above: Test performed at:[facility] [address] [place] [address] AST enzyme act/vol 31 U/L Normal 15-37 [facility] Internal Medicine Work Phone: Comment on above: Test performed at:[facility] [address] [place] [address] Bilirubin mass conc 0.50 mg/dL Normal 0.00-4.00 [facility] Internal Medicine Work Phone: Comment on above: Test performed at:[facility] [address] [place] [address] Bilirubin.direct mass conc 0.09 mg/dL Normal 0.00-0.30 [facility] Work Phone: Comment on above: Test performed at:[facility] [address] [place] [address] Globulin Calculated mass conc (S) 3.3 g/dL Normal 2.7-4.2 [facility] Work Phone: Globulin mass conc (S) 3.3 g/dL Normal 2.7-4.2 [facility] Work Phone: Comment on above: Test performed at:[facility] [address] [place] [address] Protein mass conc 7.2 g/dL Normal 6.4-8.2 [facility] Internal Medicine Work Phone: Comment on above: Test performed at:[facility] [address] [place] [address] LIPIDOrdered By: Trudy hernández on 07-06-2014 Cholesterol in HDL mass conc 46 mg/dL Normal [facility] Work Phone: Comment on above: Reference RangeHDL < 40 mg/dL Low HDL CholesterolHDL >or= 60 mg/dL High HDL Cholesterol Cholesterol in LDL mass conc 49 mg/dL Normal 0-130 [facility] Work Phone: Cholesterol mass conc 112 mg/dL Normal Comprehensive Internal Medicine Work Phone: Comment on above: <200 mg/dL Desirable 200-240 mg/dL Borderline>240 mg/dL High Risk Triglyceride mass conc 85 mg/dL Normal 0-199 [facility] Work Phone: Comment on above: Serum Triglycerides Reference IntervalNormal <150 mg/dLBorderline high 150 - 199 mg/dLHigh 200 - 499 mg/dLVery High > or = 500 mg/dL LIPID 17 mg/dL Normal 5-40 [facility] Work Phone: LIVEROrdered By: Trudy hernández on 07-06-2014 Albumin mass conc 3.8 g/dL Normal 3.4-5.0 Compreh ensive Internal Medicine Work Phone: ALT enzyme act/vol 26 U/L Normal 12-78 [facility] Work Phone: AST enzyme act/vol 18 U/L Normal 15-37 [facility] Work Phone: Protein mass conc 6.9 g/dL Normal 6.4-8.2 Compreh ensive Internal Medicine Work Phone: LIVER 0.07 mg/dL Normal 0.00-0.30 [facility] Work Phone: LIVER 0.30 mg/dL Normal 0.00-4.00 [facility] Work Phone: LIVER 97 U/L Normal 50-136 [facility] Work Phone: Lab Report: Antonio 07-06-20 14 ALK 97 U/L Normal 50-136 [facility] Work Phone: GE use only - for LinkLogic import when terms are not otherwise specified 97 U/L Normal 50-136 [facility] Work Phone: URINE VALENTIN CULTURE-SILVIA COL C OUNT ([id number])Ordered By: Manager Internal on 06-06-2014 Bacteria identified Cx Nom (U) Final report Abnormal [facility] Work Phone: Comment on above: PATIENT NOT FASTINGP ERFORMED BY: CLARE COGEON Jziqec0213 [facility] [id number] Information: SRC: URINE Bacteria identified Cx Nom (U) Escherichia coli Abnormal [facility] Work Phone: Comment on above: Greater than 100,000 colony forming units per mL PATIENT NOT FASTINGP ERFORMED BY: CLARE [facility] [id number] [facility] [id number] Information: SRC: URINE Other Antibiotic susc MIHEAD Normal [facility] Work Phone: Comment on above: S = Susceptibl e; I = Intermediate; R = Resistant P = Positive; N = Negative MICS are expressed in micrograms per mL Antibiotic RSLT#1 RSLT#2 RSLT#3 RSLT#4Amoxicillin/Clavulanic Acid SAmpicillin SCefepime SCeftriaxone SCefuroxime SCephalothin SCiprofloxacin SErtapenem SGentamicin SImipenem SLevofloxacin SNitrofurantoin SPiperacillin STetracycline STobramycin STrimethoprim/Sulfa S PATIENT NOT FASTINGP ERFORMED BY: CLARE [facility] [id number] [facility] [id number] Information: SRC: URINE Urinalysis, Office ([id number])Or dered By: Sharmaine Benedict on 06-06-2014 Bilirubin Ql (U) Negative Normal Comprehe nsive Internal Medicine Work Phone: Bilirubin Ql (U) Negative Normal Comprehe nsive Internal Medicine; [facility] Work Phone: Glucose Test strip (U) [Mass/Vol] Negative Normal [facility]; [facility] Work Phone: Glucose Test strip mass conc (U) Negative Normal [facility] Work Phone: Hemoglobin Ql (U) Hemolyzed Small Normal Co mprehensive [facility] Work Phone: Hemoglobin Test strip Ql (U) Hemolyzed Small Normal [facility] Work Phone: Ketones Ql (U) Small Normal [facility]prehens [facility] Work Phone: Leukocyte esterase Test strip Ql (U) Small Normal [facility] Work Phone: Nitrite Ql (U) Positive Normal [facility]prehens [facility] Work Phone: Nitrite Ql (U) Positive Normal Comprehens [facility]; [facility] Work Phone: Nitrite Test strip Ql (U) Positive Normal [facility] Work Phone: pH (U) 6.0 [pH] Normal [facility] Work Phone: pH Test strip (U) 6.0 [pH] Normal Compreh ensive Internal Medicine Work Phone: Protein Ql (U) Negative Normal Comprehens [facility] Work Phone: Protein Ql (U) Negative Normal [facility]; [facility] Work Phone: Protein Test strip Ql (U) Negative Normal [facility] Work Phone: Specific gravity Relative Density (U) 1.020 1 Normal Comprehensi ve Internal Medicine Work Phone: Urobilinogen mass/time (24H U) 2 mg/dL Normal [facility] Work Phone: Replaced Document: Tal Madrigal 01-17-2014 EKG QRS axis 18 deg Invalid Interpretation Code [facility] Work Phone: electrocardiogram interpretation Sinus Bradycardia -Poor R-wave progression -nonspecific -consider old anterior infarct. - Nonspecific T-abnormality. ABNORMAL Invalid Interpretation Code [facility] Work Phone: Interpretation Sinus Bradycardia -P oor R-wave progression -nonspecific -consider old anterior infarct. - Nonspecific T-abnormality. ABNORMAL Invalid Interpretation Code [facility] Work Phone: P [place] 56 deg Invalid Interpretation Code [facility] Work Phone: P wave axis, electrocardiogram 56 deg Invalid Interpretation Code [facility] Work Phone: TN Interval 178 ms Invalid Interpretation Code [facility] Work Phone: TN interval, electrocardiogram 178 ms Invalid Interpretation Code [facility] Work Phone: Pulse (Heart Rate) 59 /min Invalid Interpretation Code [facility] Work Phone: QRS axis, electrocardiogram 18 deg Invalid Interpretation Code [facility] Work Phone: QRS Duration 92 ms Invalid Interpretation Code [facility] Work Phone: QRS duration, electrocardiogram 92 ms Invalid Interpretation Code [facility] Work Phone: QT Interval new path ms Invalid Interpretation Code [facility] Work Phone: QT interval, electrocardiogram new path ms Invalid Interpretation Code [facility] Work Phone: T [place] 122 deg Invalid Interpretation Code [facility] Work Phone: T wave axis, electrocardiogram 122 deg Invalid Interpretation Code [facility] Work Phone: LIPIDOrdered By: System [employer] on 01-16-2014 Cholesterol in HDL mass conc 46 mg/dL Normal [facility] Work Phone: Comment on above: Reference RangeHDL < 40 mg/dL Low HDL CholesterolHDL >or= 60 mg/dL High HDL Cholesterol Cholesterol in LDL mass conc 88 mg/dL Normal 0-130 [facility] Work Phone: Cholesterol mass conc 159 mg/dL Normal [facility] Work Phone: Comment on above: <200 mg/dL Desirable 200-240 mg/dL Borderline>240 mg/dL High Risk Triglyceride mass conc 123 mg/dL Normal 0-199 [facility] Work Phone: Comment on above: Serum Triglycerides Reference IntervalNormal <150 mg/dLBorderline high 150 - 199 mg/dLHigh 200 - 499 mg/dLVery High > or = 500 mg/dL LIPID 25 mg/dL Normal 5-40 [facility] Work Phone: LIVEROrdered By: System Jeanne hernández on 01-16-2014 Albumin mass conc 3.6 g/dL Normal 3.4-5.0 Compreh ensive Internal Medicine Work Phone: ALT enzyme act/vol 18 U/L Normal 12-78 [facility] Work Phone: AST enzyme act/vol 15 U/L Normal 15-37 [facility] Work Phone: Protein mass conc 6.6 g/dL Normal 6.4-8.2 Compreh ensive Internal Medicine Work Phone: LIVER 80 U/L Normal 45-117 [facility] Work Phone: LIVER 0.10 mg/dL Normal 0.00-0.30 [facility] Work Phone: LIVER 0.40 mg/dL Normal 0.00-1.00 [facility] Work Phone: URINE VALENTIN CULTURE-SILVIA COL C OUNT ([id number])Ordered By: Manager Internal on 12-27-2013 Bacteria identified Cx Nom (U) Enterococcus faecalis Abnormal Comprehens [facility] Work Phone: Comment on above: 400 Colonies/mLNote: this isolate is vancomycin- susceptible.This information is provided for epidemiologic purposesonly: vancomycin is not among the antibioticsrecommended for therapy of urinary tract infectionscaused by Enterococcus.For Enterococcus species, cephalosporins, aminoglycosides (except forhigh-level resistance screening), clindamycin, and trimethoprim-sulfamethoxazole are not effective clinically. Fluoroquinolones areused primarily for treating urinary tract infections. (CLSI, [id number]-U41,2009) PERFORMED BY: Hostmonster6370 [facility] [id number] Information: SRC: URINE Bacteria identified Cx Nom (U) Final report Abnormal [facility] Work Phone: Comment on above: PERFORMED BY: Hostmonster6370 [facility] [id number] Information: SRC: URINE Other Antibiotic susc MIHEAD Normal [facility] Work Phone: Comment on above: S = Susceptibl e; I = Intermediate; R = Resistant P = Positive; N = Negative MICS are expressed in micrograms per mL Antibiotic RSLT#1 RSLT#2 RSLT#3 RSLT#4Ciprofloxacin SLevofloxacin SNitrofurantoin SPenicillin STetracycline RVancomycin S PERFORMED BY: VILOOP Yohana Iiuwej8062 [facility] [id number] Information: SRC: URINE Urinalysis, Office ([id number])Or dered By: Sharmaine Benedict on 12-27-2013 Bilirubin Ql (U) Negative Normal Comprehe nsive Internal Medicine Work Phone: Bilirubin Ql (U) Negative Normal Comprehe nsive Internal Medicine; [facility] Work Phone: Glucose Test strip (U) [Mass/Vol] Negative Normal [facility]; [facility] Work Phone: Glucose Test strip mass conc (U) Negative Normal [facility] Work Phone: Hemoglobin Ql (U) Hemolyzed Trace Normal Co mprehensive [facility] Work Phone: Hemoglobin Test strip Ql (U) Hemolyzed Trace Normal [facility] Work Phone: Ketones Ql (U) Negative Normal Comprehens [facility] Work Phone: Ketones Ql (U) Negative Normal [facility]; [facility] Work Phone: Leukocyte esterase Test strip Ql (U) Small Normal [facility] Work Phone: Nitrite Ql (U) Negative Normal Comprehens [facility] Work Phone: Nitrite Ql (U) Negative Normal Comprehens [facility]; [facility] Work Phone: Nitrite Test strip Ql (U) Negative Normal [facility] Work Phone: pH (U) 6.0 [pH] Normal [facility] Work Phone: pH Test strip (U) 6.0 [pH] Normal Compreh ensive Internal Medicine Work Phone: Protein Ql (U) Negative Normal Comprehens [facility] Work Phone: Protein Ql (U) Negative Normal Comprehens [facility]; [facility] Work Phone: Protein Test strip Ql (U) Negative Normal [facility] Work Phone: Specific gravity Relative Density (U) 1.010 1 Normal Comprehensi ve Internal Medicine Work Phone: Urobilinogen mass/time (24H U) 2 mg/dL Normal [facility] Work Phone: URINE VALENTIN CULTURE-IDENTIFICA [place] (15119)Ordered By: Manager Internal on 04-19-2012 Bacteria identified Cx Nom (U) MUG Normal [facility] Work Phone: Comment on above: Mixed urogenital reyna ra1,000 Colonies/mL PATIENT NOT FASTINGP ERFORMED BY: [facility]StreamTrans[facility] [id number] Information: [id number] Bacteria identified Cx Nom (U) Final report Normal [facility] Work Phone: Comment on above: PATIENT NOT FASTINGP ERFORMED BY: [employer] LabSignia Corporate ServicesGateway Rehabilitation Hospital [id number] Information: [id number] Urinalysis, Office (95612)Or dered By: Jocelyn Arrington on 04-19-2012 Bilirubin Ql (U) Negative Normal Comprehe nsive Internal Medicine Work Phone: Bilirubin Ql (U) Negative Normal Comprehe nsive Internal Medicine; [facility] Work Phone: Glucose Test strip (U) [Mass/Vol] Negative Normal [facility]; [facility] Work Phone: Glucose Test strip mass conc (U) Negative Normal [facility] Work Phone: Hemoglobin Ql (U) Hemolyzed Trace Normal Co mprehensive [facility] Work Phone: Hemoglobin Test strip Ql (U) Hemolyzed Trace Normal [facility] Work Phone: Ketones Ql (U) Negative Normal Comprehens [facility] Work Phone: Ketones Ql (U) Negative Normal Comprehens [facility]; [facility] Work Phone: Leukocyte esterase Test strip Ql (U) Trace Normal [facility] Work Phone: Nitrite Ql (U) Negative Normal Comprehens [facility] Work Phone: Nitrite Ql (U) Negative Normal Comprehens [facility]; [facility] Work Phone: Nitrite Test strip Ql (U) Negative Normal [facility] Work Phone: pH (U) 6.5 [pH] Normal [facility] Work Phone: pH Test strip (U) 6.5 [pH] Normal Compreh ensive Internal Medicine Work Phone: Protein Ql (U) Negative Normal Comprehens [facility] Work Phone: Protein Ql (U) Negative Normal Comprehens [facility]; [facility] Work Phone: Protein Test strip Ql (U) Negative Normal [facility] Work Phone: Specific gravity Relative Density (U) 1.010 1 Normal Comprehensi ve [facility] Medicine Work Phone: Urobilinogen mass/time (24H U) Normal Normal [facility] Work Phone: URINE VALENTIN CULTURE (SILVIA COL COUNT) ([id number])Ordered By: Manager Internal on 04-06-2012 Bacteria identified Cx Nom (U) Final report Normal [facility] Work Phone: Comment on above: PATIENT NOT FASTINGP ERFORMED BY: CB [facility] [id number] [facility]stack[facility] [id number] Information: SRC:UR [id number] Bacteria identified Cx Nom (U) Escherichia coli Normal [facility] Work Phone: Comment on above: Greater than 100,000 colony forming units per mL PATIENT NOT FASTINGP ERFORMED BY: CB [facility] Pqyeew6608 [facility]stack[facility] [id number] Information: SRC:UR [id number] Other Antibiotic susc MIHEAD Normal [facility] Work Phone: Comment on above: S = Susceptibl e; I = Intermediate; R = Resistant P = Positive; N = Negative MICS are expressed in micrograms per mL Antibiotic RSLT#1 RSLT#2 RSLT#3 RSLT#4Amoxicillin/Clavulanic Acid SAmpicillin SCefazolin SCefepime SCeftriaxone SCefuroxime SCephalothin SCiprofloxacin SESBL NErtapenem SGentamicin SImipenem SLevofloxacin SNitrofurantoin SPiperacillin STetracycline RTobramycin STrimethoprim/Sulfa S PATIENT NOT FASTINGP ERFORMED BY: CLARE [facility] Gthgrr2889 Pavon RoadDublin [place] [id number] Information: SRC:RM [id number] Urinalysis, Office (24148)Or dered By: Melissa Mott on 04-06-2012 Bilirubin Ql (U) Negative Normal Comprehe nsive Internal Medicine Work Phone: Bilirubin Ql (U) Negative Normal Comprehe nsive Internal Medicine; [facility] Work Phone: Glucose Test strip (U) [Mass/Vol] Negative Normal [facility]; [facility] Work Phone: Glucose Test strip mass conc (U) Negative Normal [facility] Work Phone: Hemoglobin Ql (U) Hemolyzed Moderate Normal [facility] Work Phone: Hemoglobin Test strip Ql (U) Hemolyzed Moderate Normal [facility] Work Phone: Ketones Ql (U) Negative Normal Comprehens [facility] Work Phone: Ketones Ql (U) Negative Normal Comprehens [facility]; [facility] Work Phone: Leukocyte esterase Test strip Ql (U) Large Normal [facility] Work Phone: Nitrite Ql (U) Positive Normal Comprehens [facility] Work Phone: Nitrite Ql (U) Positive Normal Comprehens [facility]; [facility] Work Phone: Nitrite Test strip Ql (U) Positive Normal [facility] Work Phone: pH (U) 6.0 [pH] Normal [facility] Work Phone: pH Test strip (U) 6.0 [pH] Normal Compreh ensive Internal Medicine Work Phone: Protein Ql (U) Negative Normal Comprehens [facility] Work Phone: Protein Ql (U) Negative Normal Comprehens [facility]; [facility] Work Phone: Protein Test strip Ql (U) Negative Normal [facility] Work Phone: Specific gravity Relative Density (U) 1.010 1 Normal Comprehensi ve Internal Medicine Work Phone: Urobilinogen mass/time (24H U) Normal Normal [facility] Work Phone: REYMUNDO (ANTINUCLEAR ANTIBODY) ( [id number])Ordered By: Manager Internal on 05-01-2011 Nuclear Ab Ql (S) Negative Normal Compreh ensive Internal Medicine Work Phone: Comment on above: PATIENT NOT FASTINGP ERFORMED BY: [employer] [facility] [id number] BY: Foodist [address] [id number] Nuclear Ab Ql (S) Negative Normal Compreh ensive Internal Medicine; [facility] Work Phone: C-REACTIVE PROTEIN (55101)Or dered By: Manager Internal on 05-01-2011 CRP mass conc 9.1 mg/L Abnormal 0.0-4.9 Comprehensi ve Internal Medicine Work Phone: Comment on above: PATIENT NOT FASTINGP ERFORMED BY: [employer]eliner70 [facility] [id number] BY: [employer] [id number] CCP Antibodies IgG/IgAOrdere d By: Manager Internal on 05-01-2011 Cyclic citrullinated peptide IgA+IgG IA Qn 1 {units} Normal 0-19 [facility] Work Phone: Comment on above: Negative <20 Weak po sitive 20 - 39 Moderate positive 40 - 59 Strong positive >59 PATIENT NOT FASTINGP ERFORMED BY: [facility] Yrdazx8212 [facility] [id number] BY: [address] [id number] CommentOrdered By: Trudy mckeon on 05-01-2011 Comment SPRCS Normal [facility] Work Phone: Comment on above: Effective June 03, 2009 order code [id number] CCP IgGAntibodies has been replaced due to an updated reagentversion 3.1. For this reason [facility] has provided youwith a new order code [id number] CCP Antibodies IgG/IgA. PATIENT NOT FASTINGP ERFORMED BY: [employer] Tksswj7648 [facility] [id number] BY: [address] [id number] RHEUMATOID FACTOR-QUANT (024 31)Ordered By: Manager Internal on 05-01-2011 Rheumatoid factor Qn 8.9 {IU/mL} Normal 0.0-13.9 [facility] prehensive Internal Medicine Work Phone: Comment on above: PATIENT NOT FASTINGP ERFORMED BY: [employer] Tzeewy8666 [facility] [id number] BY: [address] [id number] Rheumatoid factor Qn 8.9 [IU]/mL Normal 0.0-13.9 [facility] prehensive Internal Medicine; [facility] Work Phone: SED RATE ERYTHROCYTE ([id number]) Ordered By: Manager Internal on 05-01-2011 ESR Velocity (Bld) 11 mm/h Normal 0-56 [facility] Internal Medicine Work Phone: Comment on above: PATIENT NOT FASTINGP ERFORMED BY: [employer] Xjfbnw2331 [facility] [id number] BY: [address] [id number] SHOULDER,MIN 2 VIEWSOrdered By: Manager Internal on 05-01-2011 SHOULDER,MIN 2 VIEWS See Note Normal Comp rehensive Internal Medicine Work Phone: Comment on above: PROCEDURE: X-RAY - R IGHT SHOULDER REASON FOR EXAM: Female, 75 years old. Shoulder pain. TECHNIQUE: Four views of the shoulder. COMPARISON: None. FINDINGS:Normal glenohumeral articulation. There is degenerative arthrosis of theacromioclavicular joint without inferior osseous spur formation. Normal acromion. Normal humeral head and visualized proximal humerus. There is no demonstrated soft tissue abnormality. Normal visualized pulmonary apex. IMPRESSION:Minimal AC joint arthrosis. No other significant abnormality. Dictated on 05/01/11 1010 by Laurent Arceo MDTranscribed on 05/01/11 1415 by ITS IMPORTSign by Laurent Arceo MD on 05/01/11 1416 Sign by: Laurent Arceo MD TSH ([id number])Ordered By: Yanelis m Cloth Finisher on 05-01-2011 Thyrotropin Qn 3.240 {uIU/mL} Normal 0.450-4.50 0 [facility] Work Phone: Comment on above: PATIENT NOT FASTINGP ERFORMED BY: Offermaticarp Wwivbr2373 [facility] [id number] BY: [facility] [id number] Information: [id number] CBC, Platelets & Auto Diff ( 65936)Ordered By: Manager Internal on 03-18-2011 Basophils #/vol (Bld) 0.0 {x10E3/uL} Normal 0.0-0.2 [facility] Work Phone: Comment on above: PATIENT NOT FASTINGP ERFORMED BY: [facility] Eqtxem5258 [facility] [id number] Information: ADD [id number] AND DRAW FEE 99 6660 Basophils (Bld) [#/Vol] 0.0 10*3/uL Normal 0.0-0.2 [facility]; [facility] Work Phone: Basophils Auto #/vol (Bld) 0.0 {x10E3/uL} Normal 0.0-0.2 [facility] Work Phone: Basophils/100 WBC (Bld) 0 % Normal 0-3 [facility] Work Phone: Comment on above: PATIENT NOT FASTINGP ERFORMED BY: Timeliner70 [facility] [id number] Information: ADD [id number] AND DRAW FEE 99 6660 Basophils/100 WBC Auto (Bld) 0 % Normal 0-3 [facility] Work Phone: Eosinophils #/vol (Bld) 0.0 {x10E3/uL} Normal 0.0-0.4 [facility] Work Phone: Comment on above: PATIENT NOT FASTINGP ERFORMED BY: Timeliner70 [facility] [id number] Information: ADD [id number] AND DRAW FEE 99 6660 Eosinophils (Bld) [#/Vol] 0.0 10*3/uL Normal 0.0-0.4 [facility]; [facility] Work Phone: Eosinophils Auto #/vol (Bld) 0.0 {x10E3/uL} Normal 0.0-0.4 [facility] Work Phone: Eosinophils/100 WBC (Bld) 0 % Normal 0-7 [facility] Work Phone: Comment on above: PATIENT NOT FASTINGP ERFORMED BY: Timeliner70 [facility] MediaTrans[facility] [id number] Information: ADD [id number] AND DRAW FEE 99 6660 Eosinophils/100 WBC Auto (Bld) 0 % Normal 0-7 [facility] Work Phone: Erythrocyte distribution width Auto Ratio (RBC) 13.8 % Normal 11.7-15.0 [facility] Work Phone: Erythrocyte distribution width Ratio (RBC) 13.8 % Normal 11.7-15.0 [facility] Work Phone: Comment on above: PATIENT NOT FASTINGP ERFORMED BY: [facility] Pnqgou6444 [facility] [id number] Information: ADD [id number] AND DRAW FEE 99 6660 Hematocrit Auto Volume Fraction (Bld) 45.1 % Abnormal 34.0-44.0 [facility] Work Phone: Hematocrit Volume Fraction (Bld) 45.1 % Abnormal 34.0-44.0 [facility] Work Phone: Comment on above: PATIENT NOT FASTINGP ERFORMED BY: [facility] Lfvelk3623 [facility] [id number] Information: ADD [id number] AND DRAW FEE 99 6660 Hemoglobin mass conc (Bld) 15.0 g/dL Normal 11.5-15.0 [facility] Work Phone: Comment on above: PATIENT NOT FASTINGP ERFORMED BY: [facility] Jbiwot7123 [facility] [id number] Information: ADD [id number] AND DRAW FEE 99 6660 Immature granulocytes #/vol (Bld) 0.0 {x10E3/uL} Normal 0.0-0.1 [facility] Work Phone: Comment on above: PATIENT NOT FASTINGP ERFORMED BY: [facility] Cyvsvc6904 [facility] [id number] Information: ADD [id number] AND DRAW FEE 99 6660 Immature granulocytes (Bld) [#/Vol] 0.0 10*3/uL Normal 0.0-0.1 [facility]; [facility] Work Phone: Immature granulocytes/100 WBC (Bld) 0 % Normal 0-2 [facility] Work Phone: Comment on above: Please note refere nce interval change PATIENT NOT FASTINGP ERFORMED BY: [facility] Inrmwt7909 [facility] [id number] Information: ADD [id number] AND DRAW FEE 99 6660 Lymphocytes #/vol (Bld) 0.6 {x10E3/uL} Abnormal 0.7-4.5 [facility] Work Phone: Comment on above: PATIENT NOT FASTINGP ERFORMED BY: CLARE Holloway6370 [facility] [id number] Information: ADD [id number] AND DRAW FEE 99 6660 Lymphocytes (Bld) [#/Vol] 0.6 10*3/uL Abnormal 0.7-4.5 [facility]; [facility] Work Phone: Lymphocytes Auto #/vol (Bld) 0.6 {x10E3/uL} Abnormal 0.7-4.5 [facility] Work Phone: Lymphocytes/100 WBC (Bld) 8 % Abnormal 14-46 [facility] Work Phone: Comment on above: PATIENT NOT FASTINGP ERFORMED BY: CLARE Chanellin6370 [facility] [id number] Information: ADD [id number] AND DRAW FEE 99 6660 Lymphocytes/100 WBC Auto (Bld) 8 % Abnormal -46 [facility] Work Phone: MCH Auto Entitic mass (RBC) 28.5 pg Normal 27.0-34.0 [facility] Work Phone: MCH Entitic mass (RBC) 28.5 pg Normal 27.0-34.0 [facility] Work Phone: Comment on above: PATIENT NOT FASTINGP ERFORMED BY: CLARE Chanellin6370 [facility] [id number] Information: ADD [id number] AND DRAW FEE 99 6660 MCHC Auto mass conc (RBC) 33.3 g/dL Normal 32.0-36.0 [facility] Work Phone: MCHC mass conc (RBC) 33.3 g/dL Normal 32.0-36.0 Comp [facility] Internal Medicine Work Phone: Comment on above: PATIENT NOT FASTINGP ERFORMED BY: CLARE Chanellin6370 [facility] [id number] Information: ADD [id number] AND DRAW FEE 99 6660 MCV Auto Entitic volume (RBC) 86 fL Normal 80-98 [facility] Work Phone: MCV Entitic volume (RBC) 86 fL Normal 80-98 [facility] Work Phone: Comment on above: PATIENT NOT FASTINGP ERFORMED BY: [address] [id number] Information: ADD [id number] AND DRAW FEE 99 6660 Monocytes #/vol (Bld) 1.1 {x10E3/uL} Abnormal 0.1-1.0 [facility] Work Phone: Comment on above: PATIENT NOT FASTINGP ERFORMED BY: [address] [id number] Information: ADD [id number] AND DRAW FEE 99 6660 Monocytes (Bld) [#/Vol] 1.1 10*3/uL Abnormal 0.1-1.0 [facility]; [facility] Work Phone: Monocytes Auto #/vol (Bld) 1.1 {x10E3/uL} Abnormal 0.1-1.0 [facility] Work Phone: Monocytes/100 WBC (Bld) 15 % Abnormal 4-13 [facility] Work Phone: Comment on above: PATIENT NOT FASTINGP ERFORMED BY: [place] [id number] [facility] [id number] Information: ADD [id number] AND DRAW FEE 99 6660 Monocytes/100 WBC Auto (Bld) 15 % Abnormal 4-13 [facility] Work Phone: Neutrophils #/vol (Bld) 5.8 {x10E3/uL} Normal 1.8-7.8 [facility] Work Phone: Comment on above: PATIENT NOT FASTINGP ERFORMED BY: [address] [id number] Information: ADD [id number] AND DRAW FEE 99 6660 Neutrophils (Bld) [#/Vol] 5.8 10*3/uL Normal 1.8-7.8 [facility]; [facility] Work Phone: Neutrophils Auto #/vol (Bld) 5.8 {x10E3/uL} Normal 1.8-7.8 [facility] Work Phone: Neutrophils/100 WBC (Bld) 77 % Abnormal 40-74 [facility] Work Phone: Comment on above: PATIENT NOT FASTINGP ERFORMED BY: CLARE Offermatica Cikkoi5849 [facility] [id number] Information: ADD [id number] AND DRAW FEE 99 6660 Neutrophils/100 WBC Auto (Bld) 77 % Abnormal 40-74 [facility] Work Phone: Platelets #/vol (Bld) 150 {x10E3/uL} Normal 140-415 [facility] Work Phone: Comment on above: PATIENT NOT FASTINGP ERFORMED BY: CLARE Offermatica Wchwda6884 [facility] [id number] Information: ADD [id number] AND DRAW FEE 99 6660 Platelets (Bld) [#/Vol] 150 10*3/uL Normal 140-415 [facility]; [facility] Work Phone: Platelets Auto #/vol (Bld) 150 {x10E3/uL} Normal 140-415 [facility] Internal Medicine Work Phone: RBC #/vol (Bld) 5.26 {x10E6/uL} Abnormal 3.80-5.[address] [facility] Internal Medicine Work Phone: Comment on above: PATIENT NOT FASTINGP ERFORMED BY: OffermaticaTrenton Psychiatric HospitalWeiyig3814 [facility] [id number] Information: ADD [id number] AND DRAW FEE 99 6660 RBC (Bld) [#/Vol] 5.26 10*6/uL Abnormal 3.80-5.10 [facility] Internal Medicine; [facility] Internal Medicine Work Phone: RBC Auto #/vol (Bld) 5.26 {x10E6/uL} Abnormal 3.80-5.10 [facility] Work Phone: WBC #/vol (Bld) 7.6 {x10E3/uL} Normal 4.0-10.5 Compr ehensive [facility] Work Phone: Comment on above: PATIENT NOT FASTINGP ERFORMED BY: CLARE [facility] [id number] [facility] [id number] Information: ADD [id number] AND DRAW FEE 99 6660 WBC (Bld) [#/Vol] 7.6 10*3/uL Normal 4.0-10.5 [facility]; [facility] Work Phone: WBC Auto #/vol (Bld) 7.6 {x10E3/uL} Normal 4.0-10.5 [facility] Work Phone: URINE VALENTIN CULTURE-SILVIA COL C OUNT ([id number])Ordered By: Manager Internal on 03-18-2011 Bacteria identified Cx Nom (U) Proteus mirabilis Normal [facility] Work Phone: Comment on above: 2,000 Colonies/mL PATIENT NOT FASTINGP ERFORMED BY: CLARE [facility] Uhmlcn9833 [facility] [id number] Information: SRC:UR ADD [id number] Bacteria identified Cx Nom (U) Final report Normal [facility] Work Phone: Comment on above: PATIENT NOT FASTINGP ERFORMED BY: CLARE [facility] Rqcwcy6609 [facility] [id number] Information: SRC:UR ADD [id number] Other Antibiotic [facility] Normal [facility] Work Phone: Comment on above: S = Susceptibl e; I = Intermediate; R = Resistant P = Positive; N = Negative MICS are expressed in micrograms per mL Antibiotic RSLT#1 RSLT#2 RSLT#3 RSLT#4Amikacin SAmoxicillin/Clavulanic Acid SAmpicillin SCefazolin SCefepime SCefoxitin SCeftriaxone SCiprofloxacin SErtapenem SGentamicin SLevofloxacin SNitrofurantoin RTobramycin STrimethoprim/Sulfa S PATIENT NOT FASTINGP ERFORMED BY: CLARE [facility] Jchpio5794 [facility] [id number] Information: SRC:RM BOWMAN [id number] Urinalysis, Office ([id number])Or dered By: Melissa Mott on 03-18-2011 Bilirubin Ql (U) Negative Normal Comprehe nsive [facility] Work Phone: Bilirubin Ql (U) Negative Normal Comprehe nsive [facility]; [facility] Work Phone: Glucose Test strip (U) [Mass/Vol] Negative Normal [facility]; [facility] Work Phone: Glucose Test strip mass conc (U) Negative Normal [facility] Work Phone: Hemoglobin Ql (U) Hemolyzed Small Normal Co mprehensive [facility] Work Phone: Hemoglobin Test strip Ql (U) Hemolyzed Small Normal [facility] Work Phone: Ketones Ql (U) Negative Normal Comprehens [facility] Work Phone: Ketones Ql (U) Negative Normal [facility]; [facility] Work Phone: Leukocyte esterase Test strip Ql (U) Trace Normal [facility] Work Phone: Nitrite Ql (U) Negative Normal [facility] Work Phone: Nitrite Ql (U) Negative Normal [facility]; [facility] Work Phone: Nitrite Test strip Ql (U) Negative Normal [facility] Work Phone: pH (U) 6.0 [pH] Normal [facility] Work Phone: pH Test strip (U) 6.0 [pH] Normal Compreh ensive [facility] Work Phone: Protein Ql (U) Negative Normal [facility] Work Phone: Protein Ql (U) Negative Normal [facility]; [facility] Work Phone: Protein Test strip Ql (U) Negative Normal [facility] Work Phone: Specific gravity Relative Density (U) 1.010 1 Normal Comprehensi ve Internal Medicine Work Phone: Urobilinogen mass/time (24H U) Normal Normal [facility] Work Phone: Calcium Serum ([id number])Ordered By: Manager Internal on 01-05-2011 Calcium mass conc 9.4 mg/dL Normal 8.6-10.2 Compreh ensive [facility] Medicine Work Phone: Comment on above: PATIENT NOT FASTINGP ERFORMED BY: CLARE [facility] Fbacss5746 [address]Dublin [place] [id number] Ferritin ([id number])Ordered By: Manager Internal on 01-05-2011 Ferritin mass conc 158 ng/mL Abnormal 13-150 [facility] Work Phone: Comment on above: PATIENT NOT FASTINGP ERFORMED BY: CLARE [facility] Ypntry2004 [address]Dublin [place] [id number] Glucose ([id number])Ordered By: S ystem Cloth Finisher on 01-05-2011 Glucose mass conc 89 mg/dL Normal 65-99 Compreh ensive [facility] Work Phone: Comment on above: PATIENT NOT FASTINGP ERFORMED BY: CLARE [facility] [id number] [address]Dublin [place] [id number] PARATHORMONE ([id number])Ordered By: Manager Internal on 01-05-2011 Parathyrin.intact mass conc 20 pg/mL Normal 15-65 [facility] Work Phone: Comment on above: PATIENT NOT FASTINGP ERFORMED BY: CB [facility] Syqxbl3033 [address]Dublin [place] [id number] TSH ([id number])Ordered By: Yanelis rajan Cloth Finisher on 01-05-2011 Thyrotropin Qn 2.450 {uIU/mL} Normal 0.450-4.50 0 [facility] Work Phone: Comment on above: PATIENT NOT FASTINGP ERFORMED BY: CLARE [facility] Ivvcqj7282 [address] RoadDublin [place] [id number] Information: [id number] KNEE,4 OR MORE VIEWSOrdered By: Manager Internal on 12-17-2010 KNEE,4 OR MORE VIEWS See Note Normal Comp rehensive Internal Medicine Work Phone: Comment on above: CLINICAL:Female, 75 years old. Pain and swelling. X-RAY EXAMINATION - LEFT KNEE TECHNIQUE:Four views of the knee. COMPARISON:None. FINDINGS:There is mild osteopenia and moderate degenerative joint space narrowing.There is chondrocalcinosis of the menisci. There is no fracture ordislocation. There is no soft tissue swelling. There is a questionablesmall suprapatellar effusion. IMPRESSION:Osteopenia. CPPD of the menisci. Questionable suprapatellar effusion. Dictated on 12/17/10 0843 by Sebastián Wahl DOTranscribed on 12/17/101628 by ITS IMPORTSign by Sebastián Wahl DO on 12/17/101628 Sign by: Sebastián Wahl DO MYOCARD PERF STRESS/REST MUL TOrdered By: Manager Internal on 03-07-2010 MYOCARD PERF STRESS/REST MULT See Note Normal [facility] Work Phone: Comment on above: Exam Number: [id number] MYOCARDIAL PERFUSION SCAN 11.1 mCi of Tc99m sestamibi was injected at rest. The patientthen exercised according to the regular Abdias protocol for a totalduration of 10 minutes attaining 77% of maximum predicted heart ratewith a work load of 11.7 METs. At peak exercise, 33 mCi of Ql20ljwnxdsgxb was injected. Stress images were then obtained. Stressand rest images were reconstructed and compared in the short axis,vertical long and horizontal long axes. Gated images were alsoobtained. Review of the stress images demonstrate normal uptake of tracer notedin all areas of the myocardium. The resting images similarlydemonstrate normal uptake of tracer in all areas of the myocardium.No reversibility is noted to suggest ischemia. The estimatedejection fraction is 77%. CONCLUSION1. Normal exercise myocardial perfusion scan at a high work load.2. Preserved ejection fraction. Reported By: SAÚL BARNEY M.D. LIPIDOrdered By: Trudy hernández on 03-01-2007 Cholesterol in HDL mass conc 51 mg/dL Normal [facility] Work Phone: Comment on above: Reference Range HDL <40 mg/dL Low HDL Cholesterol HDL >or= 60 mg/dL High HDL Cholesterol Cholesterol in LDL mass conc 69 mg/dL Normal 0-130 [facility] Work Phone: Cholesterol in VLDL mass conc 17 mg/dL Normal 5-40 [facility] Work Phone: Cholesterol mass conc 137 mg/dL Normal [facility] Work Phone: Comment on above: <200 mg/dL Desirable 200-240 mg/dL Borderline >240 mg/dL High Risk Triglyceride mass conc 86 mg/dL Normal [facility] Work Phone: Comment on above: Serum Triglycerides Reference Interval Normal <150 mg/dL Borderline high 150 - 199 mg/dL High 200 - 499 mg/dL Very High > or = 500 mg/dL LIVEROrdered By: Trudy hernández on 03-01-2007 Albumin mass conc 3.8 g/dL Normal 3.4-5.0 Compreh ensive Internal Medicine Work Phone: ALP enzyme act/vol 80 U/L Normal 50-136 [facility] Internal Medicine Work Phone: ALT enzyme act/vol 37 [iU]/L Normal 30-65 [facility] Internal Medicine Work Phone: AST enzyme act/vol 27 U/L Normal 15-37 [facility] Internal Medicine Work Phone: Bilirubin mass conc 0.38 mg/dL Normal 0.00-1.00 [facility] Internal Medicine Work Phone: Bilirubin.direct mass conc 0.12 mg/dL Normal 0.00-0.30 [facility] Internal Medicine Work Phone: Protein mass conc 7.0 g/dL Normal 6.4-8.2 Compreh ensive Internal Medicine Work Phone: CULTURE, URINEOrdered By: Yusuf stem Cloth Finisher on 09-16-2006 Bacteria identified Cx Nom (U) See Note Normal [facility] Work Phone: Comment on above: COLONY COUNT 1000-10 ,000 ORGANISM 1: ESCHERICHIA COLI ESCHERICHIA COLI: REACTION AMOXICILLIN/CLAVULANIC ACID $$ <=8 S AMPICILLIN GN $ 1 S CARBENICILLIN $$$ <=16 S CEFAZOLIN $ <=8 S CEFOXITIN $$ <=2 S CEFTRIAXONE $$$ <=8 S CEFUROXIME $$ <=4 S CIPROFLOXACIN GN $$$ <=0.5 S GENTAMICIN GN $ 1 S LEVOFLOXACIN $$ <=1 S NALIDIXIC ACID $$$ <=16 S NITROFURANTOIN $ <=32 S OFLOXACIN $$$ <=1 S TETRACYCLINE $$ <=1 S TICARCILLIN GN NOT PSEUDO $$$ <=16 S TRIMETHOPRIM/SULFAMETHOXAZ $$ <=10 S The date and/or time of collection was not indicated on therequisition as required by state and federal law. The dateof receipt of the specimen was used as the collection dateif not supplied. CBCOrdered By: System Manage r on 07-21-2006 Erythrocyte distribution width Auto Ratio (RBC) 12.6 % Normal 11.6-14.6 [facility] Internal Medicine Work Phone: Erythrocyte distribution width Ratio (RBC) 12.6 % Normal 11.6-14.6 [facility] Internal Medicine Work Phone: Hematocrit Auto Volume Fraction (Bld) 41.2 % Normal 37-47 [facility] Internal Medicine Work Phone: Hematocrit Volume Fraction (Bld) 41.2 % Normal 37-47 [facility] Internal Medicine Work Phone: Hemoglobin mass conc (Bld) 14.3 g/dL Normal 12.0-16.0 [facility] Internal Medicine Work Phone: MCH Auto Entitic mass (RBC) 29.6 pg Normal 27.0-32.0 [facility] Internal Medicine Work Phone: MCH Entitic mass (RBC) 29.6 pg Normal 27.0-32.0 [facility] Internal Medicine Work Phone: MCHC Auto mass conc (RBC) 34.8 g/dL Normal 32-36 [facility] Work Phone: MCHC mass conc (RBC) 34.8 g/dL Normal 32-36 [facility] Work Phone: MCV Auto Entitic volume (RBC) 85.1 fL Normal 81-99 [facility] Work Phone: MCV Entitic volume (RBC) 85.1 fL Normal 81-99 [facility] Work Phone: Platelets #/vol (Bld) 212 10*3/uL Normal 150-450 [facility] Work Phone: Platelets Auto #/vol (Bld) 212 10*3/uL Normal 150-450 [facility] Work Phone: RBC #/vol (Bld) 4.84 {M/mm3} Normal 4.2-5.4 Compreh ensive [facility] Work Phone: RBC Auto #/vol (Bld) 4.84 {M/mm3} Normal 4.2-5.4 Co mprehensive [facility] Work Phone: WBC #/vol (Bld) 8.1 10*3/uL Normal 4.4-11.0 Comprehe nsive Internal Medicine Work Phone: WBC Auto #/vol (Bld) 8.1 10*3/uL Normal 4.4-11.0 Com prehensive Internal Medicine Work Phone: Vital Signs Date Time Vital Sign Value Performing Clinician Facility 06-11-2025 12:58-0400 Body height 154.[address] Joyce Roe MD Work Phone: [facility] 06-11-2025 12:58-0400 Body mass index (BMI) [Ratio] 23.4 kg/m2 Dr. Joyce Roe MD Work Phone: [facility] 06-11-2025 12:58-0400 Body temperature 97.9 [degF] Dr. Joyce Roe MD Work Phone: [facility] 06-11-2025 12:58-0400 Body weight 56.[address] Joyce Roe MD Work Phone: [facility] 06-11-2025 12:58-0400 Diastolic blood pressure 71 mm[Hg] Dr. Joyec Roe MD Work Phone: [facility] 06-11-2025 12:58-0400 Heart rate 57 /min Dr. Joyce Roe MD Work Phone: [facility] 06-11-2025 12:58-0400 Respiratory rate 18 /min Dr. Joyce Roe MD Work Phone: [facility] 06-11-2025 12:58-0400 SaO2% (BldA) [Mass fraction] 95 % Dr. Joyce Roe MD Work Phone: [facility] 06-11-2025 12:58-0400 Systolic blood pressure 151 mm[Hg] Dr. Joyce Roe MD Work Phone: [facility] 04-03-2025 13:21-0400 Body height 154.[address] Joyce Roe MD Work Phone: [facility] 04-03-2025 13:21-0400 Body mass index (BMI) [Ratio] 23.6 kg/m2 Dr. Joyce Roe MD Work Phone: [facility] 04-03-2025 13:21-0400 Body temperature 92.1 [degF] Dr. Joyce Roe MD Work Phone: [facility] 04-03-2025 13:21-0400 Body weight 56.[address] Joyce Roe MD Work Phone: [facility] 04-03-2025 13:21-0400 Diastolic blood pressure 63 mm[Hg] Dr. Joyce Roe MD Work Phone: [facility] 04-03-2025 13:21-0400 Heart rate 54 /min Dr. Joyce Roe MD Work Phone: [facility] 04-03-2025 13:21-0400 Respiratory rate 15 /min Dr. Joyce Roe MD Work Phone: [facility] 04-03-2025 13:21-0400 SaO2% (BldA) [Mass fraction] 94 % Dr. Joyce Roe MD Work Phone: [facility] 04-03-2025 13:21-0400 Systolic blood pressure 139 mm[Hg] Dr. Joyce Roe MD Work Phone: [facility] 03-29-2025 14:04-0400 Body height 154.[address] Joyce Roe MD Work Phone: [facility] 03-29-2025 14:04-0400 Body mass index (BMI) [Ratio] 23.6 kg/m2 Dr. Joyce Roe MD Work Phone: [facility] 03-29-2025 14:04-0400 Body weight 56.[address] Joyce Roe MD Work Phone: [facility] 03-29-2025 14:04-0400 Diastolic blood pressure 58 mm[Hg] Dr. Joyce Roe MD Work Phone: [facility] 03-29-2025 14:04-0400 Heart rate 57 /min Dr. Joyce Roe MD Work Phone: [facility] 03-29-2025 14:04-0400 Respiratory rate 16 /min Dr. Joyce Roe MD Work Phone: [facility] 03-29-2025 14:04-0400 Systolic blood pressure 123 mm[Hg] Dr. Joyce Roe MD Work Phone: [facility] 03-23-2025 09:48-0400 Body height 154.9 cm Jerzy Glass MD Work Phone: [facility] 03-23-2025 09:48-0400 Body mass index (BMI) [Ratio] 23.37 kg/m2 Jerzy Glass MD Work Phone: [facility] 03-23-2025 09:48-0400 Body weight 56.1 kg Jerzy Glass MD Work Phone: [facility] 03-23-2025 09:48-0400 Diastolic blood pressure 63 mm[Hg] Jerzy Glass MD Work Phone: [facility] 03-23-2025 09:48-0400 Heart rate 56 /min Jerzy Glass MD Work Phone: [facility] 03-23-2025 09:48-0400 Respiratory rate 16 /min Jerzy Glass MD Work Phone: [facility] 03-23-2025 09:48-0400 SaO2% (BldA) [Mass fraction] 99 % Jerzy Glass MD Work Phone: [facility] 03-23-2025 09:48-0400 Systolic blood pressure 138 mm[Hg] Jerzy Glass MD Work Phone: [facility] 11-13-2024 14:00-0400 Body height 154.9 cm Jasper Peacock MD Work Phone: [facility] 11-13-2024 14:00-0400 Body mass index (BMI) [Ratio] 22.67 kg/m2 Jasper Peacock MD Work Phone: [facility] 11-13-2024 14:00-0400 Body weight 54.43 kg Jasper Peacock MD Work Phone: [facility] 11-13-2024 14:00-0400 Diastolic blood pressure 69 mm[Hg] Jasper Peacock MD Work Phone: [facility] 11-13-2024 14:00-0400 Heart rate 61 /min Jasper Peacock MD Work Phone: [facility] 11-13-2024 14:00-0400 SaO2% (BldA) [Mass fraction] 97 % Jasper Peacock MD Work Phone: [facility] 11-13-2024 14:00-0400 Systolic blood pressure 121 mm[Hg] Jasper Peacock MD Work Phone: [facility] 10-17-2024 09:53-0500 Body height 158.8 cm Jerzy Glass MD Work Phone: [facility] 10-17-2024 09:53-0500 Body mass index (BMI) [Ratio] 21.9 kg/m2 Jerzy Glass MD Work Phone: [facility] 10-17-2024 09:53-0500 Body weight 55.2 kg Jerzy Glass MD Work Phone: [facility] 10-17-2024 09:53-0500 Diastolic blood pressure 70 mm[Hg] Jerzy Glass MD Work Phone: [facility] 10-17-2024 09:53-0500 Heart rate 61 /min Jerzy Glass MD Work Phone: [facility] 10-17-2024 09:53-0500 Respiratory rate 16 /min Jerzy Glass MD Work Phone: [facility] 10-17-2024 09:53-0500 SaO2% (BldA) [Mass fraction] 97 % Jerzy Glass MD Work Phone: [facility] 10-17-2024 09:53-0500 Systolic blood pressure 147 mm[Hg] Jerzy Glass MD Work Phone: [facility] 10-10-2024 10:41-0500 Body height 158.8 cm Jerzy Glass MD Work Phone: [facility] 10-10-2024 10:41-0500 Body mass index (BMI) [Ratio] 22.62 kg/m2 Jerzy Glass MD Work Phone: [facility] 10-10-2024 10:41-0500 Body weight 57 kg Jerzy Glass MD Work Phone: [facility] 10-10-2024 10:41-0500 Diastolic blood pressure 70 mm[Hg] Jerzy Glass MD Work Phone: [facility] 10-10-2024 10:41-0500 Heart rate 60 /min Jerzy Glass MD Work Phone: [facility] 10-10-2024 10:41-0500 Respiratory rate 16 /min Jerzy Glass MD Work Phone: [facility] 10-10-2024 10:41-0500 SaO2% (BldA) [Mass fraction] 99 % Jerzy Glass MD Work Phone: [facility] 10-10-2024 10:41-0500 Systolic blood pressure 159 mm[Hg] Jerzy Glass MD Work Phone: [facility] 09-29-2024 14:50-0500 Body temperature 97.2 [degF] Dr. Joyce Roe MD Work Phone: [facility] 09-29-2024 14:50-0500 Diastolic blood pressure 52 mm[Hg] Dr. Joyce Roe MD Work Phone: [facility] 09-29-2024 14:50-0500 Heart rate 71 /min Dr. oJyce Roe MD Work Phone: [facility] 09-29-2024 14:50-0500 Respiratory rate 17 /min Dr. Joyce Roe MD Work Phone: [facility] 09-29-2024 14:50-0500 SaO2% (BldA) [Mass fraction] 98 % Dr. Joyce Roe MD Work Phone: [facility] 09-29-2024 14:50-0500 Systolic blood pressure 108 mm[Hg] Dr. Joyce Roe MD Work Phone: [facility] 09-29-2024 13:11-0500 Body height 154.[address] Joyce Roe MD Work Phone: [facility] 09-29-2024 13:11-0500 Body mass index (BMI) [Ratio] 21.5 kg/m2 Dr. Joyce Roe MD Work Phone: [facility] 09-29-2024 13:11050 Body weight 51.[address] Joyce Roe MD Work Phone: [facility] 07-05-2023 12:37-0400 Body height 154.94 cm Ruth Castillo LPN [facility]; [facility] Work Phone: 07-05-2023 12:37-0400 Body mass index (BMI) [Ratio] 23.81 kg/m2 Ruth Castillo LPN [facility]; [facility] Work Phone: 07-05-2023 12:37-0400 Body surface area Derived from formula 1.55 m2 Ruth Castillo LPN [facility]; [facility] Work Phone: 07-05-2023 12:37-0400 Body temperature 97.9 [degF] Ruth Castillo LPN [facility]; [facility] Work Phone: 07-05-2023 12:37-0400 Body weight 57.15 kg Ruth Castillo LPN [facility]; [facility] Work Phone: 07-05-2023 12:37-0400 Diastolic blood pressure 62 mm[Hg] Ruth Castillo LPN [facility]; [facility] Work Phone: 07-05-2023 12:37-0400 Heart rate 58 /min Ruth Castillo LPN [facility]; [facility] Work Phone: 07-05-2023 12:37-0400 Respiratory rate 16 /min Ruth Castillo LPN [facility]; [facility] Work Phone: 07-05-2023 12:37-0400 SaO2% (BldA) [Mass fraction] 97 % Ruth Castillo LPN [facility]; [facility] Work Phone: 07-05-2023 12:37-0400 Systolic blood pressure 116 mm[Hg] Ruth Castillo LPN [facility]; [facility] Work Phone: 03-04-2023 11:29-040 Body height 154.94 cm Tamera Sanchez MA [facility]; [facility] Work Phone: 03-04-2023 11:29-0400 Body mass index (BMI) [Ratio] 24.19 kg/m2 Tamera Sanchez MA [facility]; [facility] Work Phone: 03-04-2023 11:29-0400 Body surface area Derived from formula 1.56 m2 Tamera Sanchez MA [facility]; [facility] Work Phone: 03-04-2023 11:29-040 Body temperature 96.5 [degF] Tamera Sanchez MA [facility]; [facility] Work Phone: 03-04-2023 11:29-040 Body weight 58.06 kg Tamera Sanchez MA [facility]; [facility] Work Phone: 03-04-2023 11:29-0400 Diastolic blood pressure 78 mm[Hg] Tamera Sanchez MA [facility]; [facility] Work Phone: 03-04-2023 11:29-0400 Heart rate 58 /min Tamera Sanchez MA [facility]; [facility] Work Phone: 03-04-2023 11:29-0400 SaO2% (BldA) [Mass fraction] 98 % Tamera Sanchez MA [facility]; [facility] Work Phone: 03-04-2023 11:29-0400 Systolic blood pressure 118 mm[Hg] Tamera Sanchez MA [facility]; [facility] Work Phone: 01-18-2023 11:35-0400 Body height 154.94 cm Ruth Castillo LPN [facility]; [facility] Work Phone: 01-18-2023 11:35-0400 Body mass index (BMI) [Ratio] 24.19 kg/m2 Ruth Castillo [facility] [facility]; [facility] Work Phone: 01-18-2023 11:35-0400 Body surface area Derived from formula 1.56 m2 Ruth Castillo [facility] [facility]; [facility] Work Phone: 01-18-2023 11:35-0400 Body temperature 98.1 [degF] Ruth Castillo [facility]; [facility] Work Phone: 01-18-2023 11:35-0400 Body weight 58.06 kg Ruth Castillo [facility]; [facility] Work Phone: 01-18-2023 11:35-0400 Diastolic blood pressure 68 mm[Hg] Ruthdrea Castillo [facility]; [facility] Work Phone: 01-18-2023 11:35-0400 Heart rate 58 /min Ruthdrea Castillo [facility]; [facility] Work Phone: 01-18-2023 11:35-0400 Respiratory rate 16 /min Ruth Castillo [employer] [facility]; [facility] Work Phone: 01-18-2023 11:35-0400 SaO2% (BldA) [Mass fraction] 95 % Ruth Castillo [employer] [facility]; [facility] Work Phone: 01-18-2023 11:35-0400 Systolic blood pressure 118 mm[Hg] Ruthdrea Castillo [facility]; [facility] Work Phone: 12-31-2022 08:18-0400 Body height 154.94 cm Joyce Roe MD Work Phone: [facility]; [facility] Work Phone: 12-31-2022 08:18-0400 Body mass index (BMI) [Ratio] 24.19 kg/m2 Joyce Roe MD Work Phone: [facility]; [facility] Work Phone: 12-31-2022 08:18-0400 Body surface area Derived from formula 1.56 m2 Joyce Roe MD Work Phone: [facility]; [facility] Work Phone: 12-31-2022 08:18-0400 Body temperature 95.3 [degF] Joyce Roe MD Work Phone: [facility]; [facility] Work Phone: 12-31-2022 08:18-0400 Body weight 58.06 kg Joyce Roe MD Work Phone: [facility]; [facility] Work Phone: 12-31-2022 08:18-0400 Diastolic blood pressure 60 mm[Hg] Joyce Roe MD Work Phone: [facility]; [facility] Work Phone: 12-31-2022 08:18-0400 Heart rate 56 /min Joyce Roe MD Work Phone: [facility]; [facility] Work Phone: 12-31-2022 08:18-0400 SaO2% (BldA) [Mass fraction] 96 % Joyce Roe MD Work Phone: [facility]; [facility] Work Phone: 12-31-2022 08:18-0400 Systolic blood pressure 122 mm[Hg] Joyce Roe MD Work Phone: [facility]; [facility] Work Phone: 06-30-2022 09:43-0400 Body height 154.94 cm [facility]; [facility] Work Phone: 06-30-2022 09:43-0400 Body mass index (BMI) [Ratio] 24.19 kg/m2 Chantelle Obrien [facility]; [facility] Work Phone: 06-30-2022 09:43-0400 Body surface area Derived from formula 1.56 m2 [facility]; [facility] Work Phone: 06-30-2022 09:43-0400 Body temperature 97.1 [degF] [facility]; [facility] Work Phone: 06-30-2022 09:43-0400 Body weight 58.06 kg [facility]; [facility] Work Phone: 06-30-2022 09:43-0400 Diastolic blood pressure 62 mm[Hg] [facility]; [facility] Work Phone: 06-30-2022 09:43-0400 Heart rate 72 /min [facility]; [facility] Work Phone: 06-30-2022 09:43-0400 Respiratory rate 16 /min [facility]; [facility] Work Phone: 06-30-2022 09:43-0400 SaO2% (BldA) [Mass fraction] 97 % [facility]; [facility] Work Phone: 06-30-2022 09:43-0400 Systolic blood pressure 108 mm[Hg] [facility]; [facility] Work Phone: 05-04-2022 09:14-0400 Body height 154.94 cm Tamera Sanchez MA [facility]; [facility] Work Phone: 05-04-2022 09:14-0400 Body mass index (BMI) [Ratio] 24.19 kg/m2 Tamera Sanchez MA [facility]; [facility] Work Phone: 05-04-2022 09:14-0400 Body surface area Derived from formula 1.56 m2 Tamera Sanchez MA [facility]; [facility] Work Phone: 05-04-2022 09:14-0400 Body temperature 96.9 [degF] Tamera Sanchez MA [facility]; [facility] Work Phone: 05-04-2022 09:14-0400 Body weight 58.06 kg Tamera Sanchez MA [facility]; [facility] Work Phone: 05-04-2022 09:14-0400 Diastolic blood pressure 82 mm[Hg] Tamera Sanchez MA [facility]; [facility] Work Phone: 05-04-2022 09:14-0400 Heart rate 71 /min Tamera Sanchez MA [facility]; [facility] Work Phone: 05-04-2022 09:140400 Respiratory rate 16 /min Tamera Sanchez MA [facility]; [facility] Work Phone: 05-04-2022 09:14-0400 SaO2% (BldA) [Mass fraction] 99 % Tamera Sanchez MA [facility]; [facility] Work Phone: 05-04-2022 09:14-0400 Systolic blood pressure 122 mm[Hg] Tamera Sanchez MA [facility]; [facility] Work Phone: 12-25-2021 10:10-0400 Body height 154.94 cm Marianela Brown LPN [facility]; [facility] Work Phone: 12-25-2021 10:10-0400 Body mass index (BMI) [Ratio] 24.19 kg/m2 Marianela Slarb [employer] [facility]; [facility] Work Phone: 12-25-2021 10:10-0400 Body surface area Derived from formula 1.56 m2 Marianela Slarb [employer] [facility]; [facility] Work Phone: 12-25-2021 10:10-0400 Body temperature 97.3 [degF] Marianela Granadosrb [employer] [facility]; [facility] Work Phone: 12-25-2021 10:10-0400 Body weight 58.06 kg Marianela Slarb [employer] [facility]; [facility] Work Phone: 12-25-2021 10:10-0400 Diastolic blood pressure 80 mm[Hg] Marianela Slarb [employer] [facility]; [facility] Work Phone: 12-25-2021 10:10-0400 Heart rate 55 /min Marianela Slarb [employer] [facility]; [facility] Work Phone: 12-25-2021 10:10-0400 Respiratory rate 17 /min Marianela Slarb [employer] [facility]; [facility] Work Phone: 12-25-2021 10:10-0400 SaO2% (BldA) [Mass fraction] 95 % Marianela Slarb [employer] [facility]; [facility] Work Phone: 12-25-2021 10:10-0400 Systolic blood pressure 122 mm[Hg] Marianela Granadosrb [employer] [facility]; [facility] Work Phone: 10-16-2021 10:36-0500 Body height 154.94 cm Ruth Castillo LPN [facility]; [facility] Work Phone: 10-16-2021 10:36-0500 Body mass index (BMI) [Ratio] 23.43 kg/m2 Ruth Bensonman [employer] [facility]; [facility] Work Phone: 10-16-2021 10:36-0500 Body surface area Derived from formula 1.54 m2 Ruth Castillo LPN [facility]; [facility] Work Phone: 10-16-2021 10:36-0500 Body weight 56.26 kg Ruth Castillo LPN [facility]; [facility] Work Phone: 06-17-2021 07:37-0400 Body height 154.94 cm Marianela Granadosrb [employer] [facility]; [facility] Work Phone: 06-17-2021 07:37-0400 Body mass index (BMI) [Ratio] 23.43 kg/m2 Marianela Granadosrb [employer] [facility]; [facility] Work Phone: 06-17-2021 07:37-0400 Body surface area Derived from formula 1.54 m2 Marianela Brown LPN [facility]; [facility] Work Phone: 06-17-2021 07:37-0400 Body temperature 97.1 [degF] Marianela Brown LPN [facility]; [facility] Work Phone: 06-17-2021 07:37-0400 Body weight 56.26 kg Marianela Brown LPN [facility]; [facility] Work Phone: 06-17-2021 07:37-0400 Diastolic blood pressure 68 mm[Hg] Marianela Brown LPN [facility]; [facility] Work Phone: 06-17-2021 07:37-0400 Heart rate 65 /min Marianela Brown LPN [facility]; [facility] Work Phone: 06-17-2021 07:37-0400 Respiratory rate 17 /min Marianela Brown LPN [facility]; [facility] Work Phone: 06-17-2021 07:37-0400 SaO2% (BldA) [Mass fraction] 97 % Marianela Brown LPN [facility]; [facility] Work Phone: 06-17-2021 07:37-0400 Systolic blood pressure 124 mm[Hg] Marianela Brown LPN [facility]; [facility] Work Phone: 05-09-2021 13:34-0400 Body height 159.77 cm BARBER Lowery LPN [facility]; [facility] Work Phone: 05-09-2021 13:34-0400 Body mass index (BMI) [Ratio] 22.39 kg/m2 BARBER Lowery LPN [facility]; [facility] Work Phone: 05-09-2021 13:34-0400 Body surface area Derived from formula 1.59 m2 BARBER Lowery LPN [facility]; [facility] Work Phone: 05-09-2021 13:34-0400 Body temperature 97 [degF] BARBER Lowery [employer] [facility]; [facility] Work Phone: 05-09-2021 13:34-0400 Body weight 57.15 kg BARBER Lowery [employer] [facility]; [facility] Work Phone: 05-09-2021 13:34-0400 Diastolic blood pressure 74 mm[Hg] BARBER Lowery [employer] [facility]; [facility] Work Phone: 05-09-2021 13:34-0400 Heart rate 70 /min BARBER Lowery [employer] [facility]; [facility] Work Phone: 05-09-2021 13:34-0400 Respiratory rate 20 /min BARBER Lowery [employer] [facility]; [facility] Work Phone: 05-09-2021 13:34-0400 SaO2% (BldA) [Mass fraction] 98 % BARBER Lowery [employer] [facility]; [facility] Work Phone: 05-09-2021 13:34-0400 Systolic blood pressure 114 mm[Hg] BARBER Lowery [employer] [facility]; [facility] Work Phone: 04-02-2021 15:01-0400 Body height 159.77 cm BARBER Lowery [employer] [facility]; [facility] Work Phone: 04-02-2021 15:01-0400 Body mass index (BMI) [Ratio] 22.39 kg/m2 BARBER Lowery [employer] [facility]; [facility] Work Phone: 04-02-2021 15:01-0400 Body surface area Derived from formula 1.59 m2 BARBER Lowery LPN [facility]; [facility] Work Phone: 04-02-2021 15:01-0400 Body temperature 97.9 [degF] BARBER Lowery [employer] [facility]; [facility] Work Phone: 04-02-2021 15:01-0400 Body weight 57.15 kg BARBER Sebastián GARCIAS [facility]; [facility] Work Phone: 04-02-2021 15:01-0400 Diastolic blood pressure 76 mm[Hg] BARBER Sebastián GARCIAS [facility]; [facility] Work Phone: 04-02-2021 15:01-0400 Heart rate 74 /min BARBER Lowery [employer] [facility]; [facility] Work Phone: 04-02-2021 15:01-0400 Respiratory rate 18 /min BARBER Lowery [employer] [facility]; [facility] Work Phone: 04-02-2021 15:01-0400 SaO2% (BldA) [Mass fraction] 98 % BARBER Lowery [employer] [facility]; [facility] Work Phone: 04-02-2021 15:01-0400 Systolic blood pressure 122 mm[Hg] BARBER Sebastián [facility] [facility]; [facility] Work Phone: 02-14-2021 09:18-0400 Body height 159.77 cm BARBER Lowery [employer] [facility]; [facility] Work Phone: 02-14-2021 09:18-0400 Body mass index (BMI) [Ratio] 22.39 kg/m2 BARBER Lowery [employer] [facility]; [facility] Work Phone: 02-14-2021 09:18-0400 Body surface area Derived from formula 1.59 m2 BARBER Lowery LPN [facility]; [facility] Work Phone: 02-14-2021 09:18-0400 Body temperature 97.9 [degF] BARBERSHADIA Lowery [employer] [facility]; [facility] Work Phone: 02-14-2021 09:18-0400 Body weight 57.15 kg BARBER Lowery [employer] [facility]; [facility] Work Phone: 02-14-2021 09:18-0400 Diastolic blood pressure 76 mm[Hg] BARBER Lowery LPN [facility]; [facility] Work Phone: 02-14-2021 09:18-0400 Heart rate 74 /min BARBER Lowery [employer] [facility]; [facility] Work Phone: 02-14-2021 09:18-0400 Respiratory rate 20 /min BARBER Lowery [employer] [facility]; [facility] Work Phone: 02-14-2021 09:18-0400 SaO2% (BldA) [Mass fraction] 98 % BARBER Lowery [employer] [facility]; [facility] Work Phone: 02-14-2021 09:18-0400 Systolic blood pressure 118 mm[Hg] BARBER Lowery [employer] [facility]; [facility] Work Phone: 01-17-2021 07:31-0400 Body height 158.24 cm BARBER Lowery [employer] [facility]; [facility] Work Phone: 01-17-2021 07:31-0400 Body mass index (BMI) [Ratio] 22.83 kg/m2 BARBER Sebastián [facility]; [facility] Work Phone: 01-17-2021 07:31-0400 Body surface area Derived from formula 1.58 m2 BARBER Lowery LPN [facility]; [facility] Work Phone: 01-17-2021 07:31-0400 Body temperature 97.9 [degF] BARBER Lowery [employer] [facility]; [facility] Work Phone: 01-17-2021 07:31-0400 Body weight 57.18 kg BARBER Sebastián [facility]; [facility] Work Phone: 01-17-2021 07:31-0400 Diastolic blood pressure 68 mm[Hg] BARBER Lowery LPN [facility]; [facility] Work Phone: 01-17-2021 07:31-0400 Heart rate 72 /min BARBER Lowery [employer] [facility]; [facility] Work Phone: 01-17-2021 07:31-0400 Respiratory rate 20 /min BARBER Lowery LPN [facility]; [facility] Work Phone: 01-17-2021 07:31-0400 SaO2% (BldA) [Mass fraction] 98 % BARBER Lowery LPN [facility]; [facility] Work Phone: 01-17-2021 07:31-0400 Systolic blood pressure 114 mm[Hg] BARBERSHADIA Lowery [employer] [facility]; [facility] Work Phone: 06-28-2020 07:29-0400 BMI (Body Mass Index) 23.01 kg/m2 Juaquin Franco LPN [facility] Work Phone: 06-28-2020 07:29-0400 Body Temperature 97.8 [degF] Juaquin Franco LPN [facility] Work Phone: Comment on above: Method: Infrared 06-28-2020 07:29-0400 Body weight 57.63 kg Juaquin Franco LPN [facility] Work Phone: 06-28-2020 07:29-0400 BP Diastolic 62 mm[Hg] Juaquin Franco LPN [facility] Work Phone: Comment on above: Patient Position: Sitting; Cuff Location : Left Arm; Cuff Size: Standard 06-28-2020 07:29-0400 BP Systolic 116 mm[Hg] Juaquin Franco LPN [facility] Work Phone: Comment on above: Patient Position: Sitting; Cuff Location : Left Arm; Cuff Size: Standard 06-28-2020 07:29-0400 BSA (Body Surface Area) 1.58 m2 Juaquin Franco LPN [facility] Work Phone: 06-28-2020 07:29-0400 Height 158.24 cm Juaquin Franco LPN [facility] Work Phone: 06-28-2020 07:29-0400 Pulse (Heart Rate) 84 /min Juaquin Franco LPN [facility] Work Phone: Comment on above: Pattern: Regular 06-28-2020 07:29-0400 Pulse Oximetry 98 % Joyce Roe [facility] Work Phone: Comment on above: Room air 06-28-2020 07:29-0400 Respiratory Rate 16 /min Juaquin Franco [facility] Work Phone: Comment on above: Pattern: Unlabored 06-28-2020 07:29-0400 SaO2% (BldA) [Mass fraction] 98 % Juaquin Franco [employer] [facility]; [facility] Work Phone: 01-30-2020 09:48-0400 BMI (Body Mass Index) 24.82 kg/m2 BARBER Lowery [facility] Work Phone: 01-30-2020 09:48-0400 Body Temperature 97.9 [degF] BARBER Lowery [facility] Work Phone: Comment on above: Method: Temporal 01-30-2020 09:48-0400 Body weight 62.14 kg BARBER Lowery [facility] Work Phone: 01-30-2020 09:48-0400 BP Diastolic 74 mm[Hg] BARBER Lowery [facility] Work Phone: Comment on above: Patient Position: Sitting; Cuff Location : Left Arm; Cuff Size: Standard 01-30-2020 09:48-0400 BP Systolic 118 mm[Hg] BARBER Lowery [facility] Work Phone: Comment on above: Patient Position: Sitting; Cuff Location : Left Arm; Cuff Size: Standard 01-30-2020 09:48-0400 BSA (Body Surface Area) 1.63 m2 BARBER Lowery [employer] [facility] Work Phone: 01-30-2020 09:48-0400 Height 158.24 cm BARBER Lowery [facility] Work Phone: 01-30-2020 09:48-0400 Pulse (Heart Rate) 68 /min BARBER Lowery [facility] Work Phone: Comment on above: Pattern: Regular 01-30-2020 09:48-0400 Pulse Oximetry 98 % Joyce Roe [facility] Work Phone: Comment on above: Room air 01-30-2020 09:48-0400 Respiratory Rate 18 /min BARBER Lowery LPN [facility] Work Phone: Comment on above: Pattern: Unlabored 01-30-2020 09:48-0400 SaO2% (BldA) [Mass fraction] 98 % BARBER Lowery LPN [facility]; [facility] Work Phone: 07-31-2019 07:46-0500 BMI (Body Mass Index) 24.64 kg/m2 BARBER Lowery LPN [facility] Work Phone: 07-31-2019 07:46-0500 Body Temperature 97.8 [degF] BARBER Lowery LPN [facility] Work Phone: Comment on above: Method: Temporal 07-31-2019 07:46-0500 Body weight 61.69 kg BARBER Lowery LPN [facility] Work Phone: 07-31-2019 07:46-0500 BP Diastolic 78 mm[Hg] BARBER Lowery LPN [facility] Work Phone: Comment on above: Patient Position: Sitting; Cuff Location : Left Arm; Cuff Size: Standard 07-31-2019 07:46-0500 BP Systolic 122 mm[Hg] BARBER Lowery LPN [facility] Work Phone: Comment on above: Patient Position: Sitting; Cuff Location : Left Arm; Cuff Size: Standard 07-31-2019 07:46-0500 BSA (Body Surface Area) 1.63 m2 BARBER Lowery LPN [facility] Work Phone: 07-31-2019 07:46-0500 Height 158.24 cm BARBER Lowery LPN [facility] Work Phone: 07-31-2019 07:46-0500 Pulse (Heart Rate) 74 /min BARBER Lowery LPN [facility] Work Phone: Comment on above: Pattern: Regular 07-31-2019 07:46-0500 Pulse Oximetry 98 % Joyce Roe [facility] Work Phone: Comment on above: Room air 07-31-2019 07:46-0500 Respiratory Rate 20 /min BARBER Lowery LPN [facility] Work Phone: Comment on above: Pattern: Unlabored 07-31-2019 07:46-0500 SaO2% (BldA) [Mass fraction] 98 % BARBER Lowery LPN [facility]; [facility] Work Phone: 02-02-2019 10:02-0400 BMI (Body Mass Index) 25.51 kg/m2 BARBER Lowery LPN [facility] Work Phone: 02-02-2019 10:02-0400 Body Temperature 97.6 [degF] BARBER Lowery LPN [facility] Work Phone: Comment on above: Method: Temporal 02-02-2019 10:02-0400 Body weight 61.24 kg BARBER Lowery LPN [facility] Work Phone: 02-02-2019 10:02-0400 BP Diastolic 76 mm[Hg] BARBER Lowery LPN [facility] Work Phone: Comment on above: Patient Position: Sitting; Cuff Location : Left Arm; Cuff Size: Standard 02-02-2019 10:02-0400 BP Systolic 120 mm[Hg] BARBER Lowery LPN [facility] Work Phone: Comment on above: Patient Position: Sitting; Cuff Location : Left Arm; Cuff Size: Standard 02-02-2019 10:02-0400 BSA (Body Surface Area) 1.6 m2 BARBER Lowery LPN [facility] Work Phone: 02-02-2019 10:02-0400 Height 154.94 cm BARBER Lowery [employer] [facility] Work Phone: 02-02-2019 10:02-0400 Pulse (Heart Rate) 70 /min BARBER Lowery LPN [facility] Work Phone: Comment on above: Pattern: Regular 02-02-2019 10:02-0400 Pulse Oximetry 97 % Joyce Roe [facility] Work Phone: Comment on above: Room air 02-02-2019 10:02-0400 Respiratory Rate 18 /min BARBER Lowery LPN [facility] Work Phone: Comment on above: Pattern: Unlabored 02-02-2019 10:02-0400 SaO2% (BldA) [Mass fraction] 97 % BARBER Lowery LPN [facility] Work Phone: 02-02-2019 10:02-0400 Weight 61.24 kg Joyce Roe [facility] Work Phone: 08-01-2018 07:36-0500 BMI (Body Mass Index) 24.94 kg/m2 Joyce Roe MD Work Phone: [facility] Work Phone: 08-01-2018 07:36-0500 Body Temperature 97.9 [degF] Joyce Roe MD Work Phone: [facility] Work Phone: Comment on above: Method: Temporal 08-01-2018 07:36-0500 Body weight 59.88 kg Joyce Roe MD Work Phone: [facility] Work Phone: 08-01-2018 07:36-0500 BP Diastolic 74 mm[Hg] Joyce Roe MD Work Phone: [facility] Work Phone: Comment on above: Patient Position: Sitting 08-01-2018 07:36-0500 BP Systolic 108 mm[Hg] Joyce Roe MD Work Phone: [facility] Work Phone: Comment on above: Patient Position: Sitting 08-01-2018 07:36-0500 BSA (Body Surface Area) 1.58 m2 Joyce Roe MD Work Phone: [facility] Work Phone: 08-01-2018 07:36-0500 Height 154.94 cm Joyce Roe MD Work Phone: [facility] Work Phone: 08-01-2018 07:36-0500 Pulse (Heart Rate) 74 /min Joyce Roe MD Work Phone: [facility] Work Phone: Comment on above: Pattern: Regular 08-01-2018 07:36-0500 Pulse Oximetry 95 % Joyce Roe [facility] Work Phone: Comment on above: Room air 08-01-2018 07:36-0500 Respiratory Rate 18 /min Joyce Roe MD Work Phone: [facility] Work Phone: 08-01-2018 07:36-0500 SaO2% (BldA) [Mass fraction] 95 % Joyce Roe MD Work Phone: [facility]; [facility] Work Phone: 08-01-2018 07:36-0500 Weight 59.88 kg Joyce Roe [facility] Work Phone: 03-04-2018 08:12-0400 BMI (Body Mass Index) 24.67 kg/m2 BARBER Lowery LPN [facility] Work Phone: 03-04-2018 08:12-0400 Body Temperature 97.6 [degF] BARBER Lowery LPN [facility] Work Phone: Comment on above: Method: Temporal 03-04-2018 08:12-0400 Body weight 60.78 kg BARBERSHADIA Lowery LPN [facility] Work Phone: 03-04-2018 08:12-0400 BP Diastolic 74 mm[Hg] BARBER Lowery LPN [facility] Work Phone: Comment on above: Patient Position: Sitting; Cuff Location : Left Arm; Cuff Size: Standard 03-04-2018 08:12-0400 BP Systolic 120 mm[Hg] BARBER Lowery LPN [facility] Work Phone: Comment on above: Patient Position: Sitting; Cuff Location : Left Arm; Cuff Size: Standard 03-04-2018 08:12-0400 BSA (Body Surface Area) 1.61 m2 BARBER Lowery LPN [facility] Work Phone: 03-04-2018 08:12-0400 Height 156.97 cm BARBER Lowery LPN [facility] Work Phone: 03-04-2018 08:12-0400 Pulse (Heart Rate) 68 /min BARBER Lowery LPN [facility] Work Phone: Comment on above: Pattern: Regular 03-04-2018 08:12-0400 Pulse Oximetry 99 % Joyce Roe [facility] Work Phone: Comment on above: Room air 03-04-2018 08:12-0400 Respiratory Rate 20 /min BARBER Lowery LPN [facility] Work Phone: Comment on above: Pattern: Unlabored 03-04-2018 08:12-0400 SaO2% (BldA) [Mass fraction] 99 % BARBER Lowery LPN [facility]; [facility] Work Phone: 03-04-2018 08:12-0400 Weight 60.78 kg Joyce Roe [facility] Work Phone: 01-18-2018 10:16-0400 BMI (Body Mass Index) 24.67 kg/m2 BARBER Lowery LPN [facility] Work Phone: 01-18-2018 10:16-0400 Body Temperature 97.8 [degF] BARBER Lowery LPN [facility] Work Phone: Comment on above: Method: Temporal 01-18-2018 10:16-0400 Body weight 60.78 kg BARBER Lowery LPN [facility] Work Phone: 01-18-2018 10:16-0400 BP Diastolic 78 mm[Hg] BARBER Lowery LPN [facility] Work Phone: Comment on above: Patient Position: Sitting; Cuff Location : Left Arm; Cuff Size: Standard 01-18-2018 10:16-0400 BP Systolic 118 mm[Hg] BARBER Lowery LPN [facility] Work Phone: Comment on above: Patient Position: Sitting; Cuff Location : Left Arm; Cuff Size: Standard 01-18-2018 10:16-0400 BSA (Body Surface Area) 1.61 m2 BARBER Lowery LPN [facility] Work Phone: 01-18-2018 10:16-0400 Height 156.97 cm BARBER Lowery LPN [facility] Work Phone: 01-18-2018 10:16-0400 Pulse (Heart Rate) 72 /min BARBER Lowery LPN [facility] Work Phone: Comment on above: Pattern: Regular 01-18-2018 10:16-0400 Pulse Oximetry 98 % Joyce Roe [facility] Work Phone: Comment on above: Room air 01-18-2018 10:16-0400 Respiratory Rate 20 /min BARBER Lowery LPN [facility] Work Phone: Comment on above: Pattern: Unlabored 01-18-2018 10:16-0400 SaO2% (BldA) [Mass fraction] 98 % BARBER Lowery LPN [facility]; [facility] Work Phone: 01-18-2018 10:16-0400 Weight 60.78 kg Joyce Roe [facility] Work Phone: 12-13-2017 09:34-0400 BMI (Body Mass Index) 25.22 kg/m2 BARBER Lowery LPN [facility] Work Phone: 12-13-2017 09:34-0400 Body Temperature 97.9 [degF] BARBER Lowery LPN [facility] Work Phone: Comment on above: Method: Temporal 12-13-2017 09:34-0400 Body weight 62.14 kg BARBER Lowery LPN [facility] Work Phone: 12-13-2017 09:34-0400 BP Diastolic 78 mm[Hg] BARBER Lowery LPN [facility] Work Phone: Comment on above: Patient Position: Sitting; Cuff Location : Left Arm; Cuff Size: Standard 12-13-2017 09:34-0400 BP Systolic 120 mm[Hg] BARBER Lowery LPN [facility] Work Phone: Comment on above: Patient Position: Sitting; Cuff Location : Left Arm; Cuff Size: Standard 12-13-2017 09:34-0400 BSA (Body Surface Area) 1.62 m2 BARBER Lowery LPN [facility] Work Phone: 12-13-2017 09:34-0400 Height 156.97 cm BARBER Lowery LPN [facility] Work Phone: 12-13-2017 09:34-0400 Pulse (Heart Rate) 68 /min BARBER Lowery LPN [facility] Work Phone: Comment on above: Pattern: Regular 12-13-2017 09:34-0400 Pulse Oximetry 98 % Joyce Roe [facility] Work Phone: Comment on above: Room air 12-13-2017 09:34-0400 Respiratory Rate 20 /min BARBER Lowery LPN [facility] Work Phone: Comment on above: Pattern: Unlabored 12-13-2017 09:34-0400 SaO2% (BldA) [Mass fraction] 98 % BARBER Lowery LPN [facility]; [facility] Work Phone: 12-13-2017 09:34-0400 Weight 62.14 kg Joyce Roe [facility] Work Phone: 08-02-2017 09:59-0500 BMI (Body Mass Index) 25.22 kg/m2 BARBER Lowery LPN [facility] Work Phone: 08-02-2017 09:59-0500 Body Temperature 97.6 [degF] BARBER Lowery LPN [facility] Work Phone: Comment on above: Method: Temporal 08-02-2017 09:59-0500 Body weight 62.14 kg BARBER Lowery LPN [facility] Work Phone: 08-02-2017 09:59-0500 BP Diastolic 78 mm[Hg] BARBER Loewry LPN [facility] Work Phone: Comment on above: Patient Position: Sitting; Cuff Location : Left Arm; Cuff Size: Standard 08-02-2017 09:59-0500 BP Systolic 120 mm[Hg] BARBER Lowery LPN [facility] Work Phone: Comment on above: Patient Position: Sitting; Cuff Location : Left Arm; Cuff Size: Standard 08-02-2017 09:59-0500 BSA (Body Surface Area) 1.62 m2 BARBER Lowery LPN [facility] Work Phone: 08-02-2017 09:59-0500 Height 156.97 cm BARBER Lowery LPN [facility] Work Phone: 08-02-2017 09:59-0500 Pulse (Heart Rate) 64 /min BARBER Lowery LPN [facility] Work Phone: Comment on above: Pattern: Regular 08-02-2017 09:59-0500 Pulse Oximetry 97 % Joyce Roe [facility] Work Phone: Comment on above: Room air 08-02-2017 09:59-0500 Respiratory Rate 20 /min BARBER Lowery LPN [facility] Work Phone: Comment on above: Pattern: Unlabored 08-02-2017 09:59-0500 SaO2% (BldA) [Mass fraction] 97 % BARBER Lowery LPN [facility]; [facility] Work Phone: 08-02-2017 09:59-0500 Weight 62.14 kg Joyce Roe [facility] Work Phone: 2017 11:13-0500 BMI (Body Mass Index) 25.22 kg/m2 BARBER Lowery LPN [facility] Work Phone: 2017 11:13-0500 Body Temperature 97.6 [degF] BARBER Lowery LPN [facility] Work Phone: Comment on above: Method: Temporal 2017 11:13-0500 Body weight 62.14 kg BARBER Lowery LPN [facility] Work Phone: 2017 11:13-0500 BP Diastolic 74 mm[Hg] BARBER Lowery LPN [facility] Work Phone: Comment on above: Patient Position: Sitting; Cuff Location : Left Arm; Cuff Size: Standard 2017 11:13-0500 BP Systolic 116 mm[Hg] BARBER Lowery LPN [facility] Work Phone: Comment on above: Patient Position: Sitting; Cuff Location : Left Arm; Cuff Size: Standard 2017 11:13-0500 BSA (Body Surface Area) 1.62 m2 BARBER Lowery KATERINE [facility] Work Phone: 2017 11:13-0500 Height 156.97 cm BARBER Sebastián GARCIAS [facility] Work Phone: 2017 11:13-0500 Pulse (Heart Rate) 64 /min BARBER Lowery KATERINE [facility] Work Phone: Comment on above: Pattern: Regular 2017 11:13-0500 Pulse Oximetry 97 % Joyce Arden [facility] Work Phone: Comment on above: Room air 2017 11:13-0500 Respiratory Rate 20 /min BARBER Sebastián GARCIAS [facility] Work Phone: Comment on above: Pattern: Unlabored 2017 11:13-0500 SaO2% (BldA) [Mass fraction] 97 % BARBER Lowery KATERINE [facility]; [facility] Work Phone: 2017 11:13-0500 Weight 62.14 kg Joyce Roe [facility] Work Phone: 03-18-2017 08:13-0400 BMI (Body Mass Index) 25.7 kg/m2 Lillian Morgan RN [facility] Work Phone: 03-18-2017 08:13-0400 Body Temperature 96.9 [degF] Lillian Morgan RN [facility] Work Phone: Comment on above: Method: Temporal 03-18-2017 08:13-0400 Body weight 61.69 kg Lillian Morgan RN [facility] Work Phone: 03-18-2017 08:13-0400 BP Diastolic 78 mm[Hg] Lillian Morgan RN [facility] Work Phone: Comment on above: Patient Position: Sitting; Cuff Location : Left Arm; Cuff Size: Standard 03-18-2017 08:13-0400 BP Systolic 136 mm[Hg] Lillian Morgan RN [facility] Work Phone: Comment on above: Patient Position: Sitting; Cuff Location : Left Arm; Cuff Size: Standard 03-18-2017 08:130400 BSA (Body Surface Area) 1.6 m2 Lillian Morgan RN [facility] Work Phone: 03-18-2017 08:13-0400 Height 154.94 cm Lillian Morgan RN [facility] Work Phone: 03-18-2017 08:13-0400 Pulse (Heart Rate) 59 /min Lillian Morgan RN [facility] Work Phone: Comment on above: Pattern: Regular 03-18-2017 08:13-0400 Pulse Oximetry 97 % Joyce Welchgeorgette [facility] Work Phone: Comment on above: Room air 03-18-2017 08:13-0400 Respiratory Rate 16 /min Lillian Morgan RN [facility] Work Phone: Comment on above: Pattern: Unlabored 03-18-2017 08:13-0400 SaO2% (BldA) [Mass fraction] 97 % Lillian Morgan RN [facility]; [facility] Work Phone: 03-18-2017 08:13-0400 Weight 61.69 kg Joyce Glasschong [facility] Work Phone: 03-12-2017 08:41-0400 BMI (Body Mass Index) 25.7 kg/m2 Melissa Mott RN [facility] Work Phone: 03-12-2017 08:41-0400 Body Temperature 96.8 [degF] Melissa Mott RN [facility] Work Phone: Comment on above: Method: Temporal 03-12-2017 08:41-0400 Body weight 61.69 kg Melissa Mott RN [facility] Work Phone: 03-12-2017 08:41-0400 BP Diastolic 62 mm[Hg] Melissa Mott RN [facility] Work Phone: Comment on above: Patient Position: Sitting; Cuff Location : Left Arm; Cuff Size: Standard 03-12-2017 08:41-0400 BP Systolic 122 mm[Hg] Melissa Mott RN [facility] Work Phone: Comment on above: Patient Position: Sitting; Cuff Location : Left Arm; Cuff Size: Standard 03-12-2017 08:41-0400 BSA (Body Surface Area) 1.6 m2 Melissa Mott RN [facility] Work Phone: 03-12-2017 08:41-0400 Height 154.94 cm Melissa Mott RN [facility] Work Phone: 03-12-2017 08:41-0400 Pulse (Heart Rate) 62 /min Melissa Mott RN [facility] Work Phone: Comment on above: Pattern: Regular 03-12-2017 08:41-0400 Pulse Oximetry 96 % Joyce Arden [facility] Work Phone: Comment on above: Room air 03-12-2017 08:41-0400 Respiratory Rate 18 /min Melissa Mott RN [facility] Work Phone: Comment on above: Pattern: Unlabored 03-12-2017 08:41-0400 SaO2% (BldA) [Mass fraction] 96 % Melissa Mott RN [facility]; [facility] Work Phone: 03-12-2017 08:41-0400 Weight 61.69 kg Joyce Glasschong [facility] Work Phone: 03-01-2017 15:32-0400 BMI (Body Mass Index) 25.7 kg/m2 BARBER Lowery LPN [facility] Work Phone: 03-01-2017 15:32-0400 Body Temperature 97.9 [degF] BARBER Lowery LPN [facility] Work Phone: Comment on above: Method: Temporal 03-01-2017 15:32-0400 Body weight 61.69 kg BARBER Lowery LPN [facility] Work Phone: 03-01-2017 15:32-0400 BP Diastolic 74 mm[Hg] BARBER Lowery LPN [facility] Work Phone: Comment on above: Patient Position: Sitting; Cuff Location : Left Arm; Cuff Size: Standard 03-01-2017 15:32-0400 BP Systolic 120 mm[Hg] BARBER Lowery LPN [facility] Work Phone: Comment on above: Patient Position: Sitting; Cuff Location : Left Arm; Cuff Size: Standard 03-01-2017 15:32-0400 BSA (Body Surface Area) 1.6 m2 BARBER Lowery LPN [facility] Work Phone: 03-01-2017 15:32-0400 Height 154.94 cm BARBER Lowery LPN [facility] Work Phone: 03-01-2017 15:32-0400 Pulse (Heart Rate) 74 /min BARBER Lowery LPN [facility] Work Phone: Comment on above: Pattern: Regular 03-01-2017 15:32-0400 Pulse Oximetry 97 % Joyce Roe [facility] Work Phone: Comment on above: Room air 03-01-2017 15:32-0400 Respiratory Rate 20 /min BARBER Lowery LPN [facility] Work Phone: Comment on above: Pattern: Unlabored 03-01-2017 15:32-0400 SaO2% (BldA) [Mass fraction] 97 % BARBER Lowery LPN [facility]; [facility] Work Phone: 03-01-2017 15:32-0400 Weight 61.69 kg Joyce Roe [facility] Work Phone: 01-26-2017 09:58-0400 BMI (Body Mass Index) 25.7 kg/m2 BARBER Lowery LPN [facility] Work Phone: 01-26-2017 09:58-0400 Body Temperature 97.6 [degF] BARBER Lowery LPN [facility] Work Phone: Comment on above: Method: Temporal 01-26-2017 09:58-0400 Body weight 61.69 kg BARBER Lowery LPN [facility] Work Phone: 01-26-2017 09:58-0400 BP Diastolic 76 mm[Hg] BARBER Lowery LPN [facility] Work Phone: Comment on above: Patient Position: Sitting; Cuff Location : Left Arm; Cuff Size: Standard 01-26-2017 09:58-0400 BP Systolic 110 mm[Hg] BARBER Lowery LPN [facility] Work Phone: Comment on above: Patient Position: Sitting; Cuff Location : Left Arm; Cuff Size: Standard 01-26-2017 09:58-0400 BSA (Body Surface Area) 1.6 m2 BARBER Lowery LPN [facility] Work Phone: 01-26-2017 09:58-0400 Height 154.94 cm BARBER Lowery LPN [facility] Work Phone: 01-26-2017 09:58-0400 Pulse (Heart Rate) 70 /min BARBER Lowery LPN [facility] Work Phone: Comment on above: Pattern: Regular 01-26-2017 09:58-0400 Pulse Oximetry 95 % Joyce Roe [facility] Work Phone: Comment on above: Room air 01-26-2017 09:58-0400 Respiratory Rate 20 /min BARBER Lowery LPN [facility] Work Phone: Comment on above: Pattern: Unlabored 01-26-2017 09:58-0400 SaO2% (BldA) [Mass fraction] 95 % BARBER Lowery LPN [facility]; [facility] Work Phone: 01-26-2017 09:58-0400 Weight 61.69 kg Joyce Roe [facility] Work Phone: 01-21-2017 12:59-0400 BMI (Body Mass Index) 25 kg/m2 Joc[facility] Down[facility] Work Phone: 01-21-2017 12:59-0400 BP Diastolic 58 mm[Hg] [facility] Work Phone: 01-21-2017 12:59-0400 BP Systolic 110 mm[Hg] [facility] Work Phone: 01-21-2017 12:59-0400 Height 157.48 cm [facility] Work Phone: 01-21-2017 12:59-0400 Pulse (Heart Rate) 56 /min Jocelin Downing [facility] Work Phone: 01-21-2017 12:59-0400 Respiratory Rate 16 /min Jocelin Downing [facility] Work Phone: 01-21-2017 12:59-0400 Weight 62.01 kg Jocelin Downing [facility] Work Phone: 08-27-2016 08:49-0500 BMI (Body Mass Index) 25.51 kg/m2 [facility] Work Phone: 08-27-2016 08:49-0500 Body Temperature 98 [degF] [facility] Work Phone: 08-27-2016 08:49-0500 Body weight 61.24 kg [facility] Work Phone: 08-27-2016 08:49-0500 BP Diastolic 62 mm[Hg] [facility] Work Phone: Comment on above: Patient Position: Sitting; Cuff Location : Left Arm; Cuff Size: Standard 08-27-2016 08:49-0500 BP Systolic 108 mm[Hg] [facility] Work Phone: Comment on above: Patient Position: Sitting; Cuff Location : Left Arm; Cuff Size: Standard 08-27-2016 08:49-0500 BSA (Body Surface Area) 1.6 m2 [facility] Work Phone: 08-27-2016 08:49-0500 Height 154.94 cm [facility] Work Phone: 08-27-2016 08:49-0500 Pulse (Heart Rate) 73 /min [facility] Work Phone: Comment on above: Pattern: Regular 08-27-2016 08:49-0500 Pulse Oximetry 97 % Joyce Roe [facility] Work Phone: Comment on above: Room air 08-27-2016 08:49-0500 Respiratory Rate 16 /min Gucci Henao [facility] Work Phone: Comment on above: Pattern: Unlabored 08-27-2016 08:49-0500 SaO2% (BldA) [Mass fraction] 97 % Gucci Henao [facility]; [facility] Work Phone: 08-27-2016 08:49-0500 Weight 61.24 kg Joyce Roe [facility] Work Phone: 06-12-2016 07:00-0400 BMI (Body Mass Index) 24.75 kg/m2 BARBER Lowery KATERINE [facility] Work Phone: 06-12-2016 07:00-0400 Body Temperature 97.6 [degF] BARBER Lowery LPN [facility] Work Phone: Comment on above: Method: Temporal 06-12-2016 07:00-0400 Body weight 59.42 kg BARBER Lowery KATERINE [facility] Work Phone: 06-12-2016 07:00-0400 BP Diastolic 80 mm[Hg] BARBER Lowery LPN [facility] Work Phone: Comment on above: Patient Position: Sitting; Cuff Location : Left Arm; Cuff Size: Standard 06-12-2016 07:00-0400 BP Systolic 120 mm[Hg] BARBER Lowery LPN [facility] Work Phone: Comment on above: Patient Position: Sitting; Cuff Location : Left Arm; Cuff Size: Standard 06-12-2016 07:00-0400 BSA (Body Surface Area) 1.58 m2 BARBER Lowery LPN [facility] Work Phone: 06-12-2016 07:00-0400 Height 154.94 cm BARBER Lowery LPN [facility] Work Phone: 06-12-2016 07:00-0400 Pulse (Heart Rate) 72 /min BARBER Lowery LPN [facility] Work Phone: Comment on above: Pattern: Regular 06-12-2016 07:00-0400 Pulse Oximetry 97 % Joyce Roe [facility] Work Phone: Comment on above: Room air 06-12-2016 07:00-0400 Respiratory Rate 20 /min BARBER Lowery [employer] [facility] Work Phone: Comment on above: Pattern: Unlabored 06-12-2016 07:00-0400 SaO2% (BldA) [Mass fraction] 97 % BARBER Lowery [employer] [facility] Work Phone: 06-12-2016 07:00-0400 Weight 59.42 kg Joyce Roe [facility] Work Phone: 03-02-2016 09:04-0400 BMI (Body Mass Index) 25.16 kg/m2 MD [facility] Work Phone: 03-02-2016 09:04-0400 Body Temperature 97.9 [degF] MD [facility] Work Phone: 03-02-2016 09:04-0400 BP Diastolic 68 mm[Hg] MD [facility] Work Phone: 03-02-2016 09:04-0400 BP Systolic 102 mm[Hg] MD [facility] Work Phone: 03-02-2016 09:04-0400 BSA (Body Surface Area) 1.63 m2 MD [facility] Work Phone: 03-02-2016 09:04-0400 Pulse (Heart Rate) 62 /min MD [facility] Work Phone: 03-02-2016 09:04-0400 Pulse Oximetry 96 % MD [facility] Work Phone: 03-02-2016 09:04-0400 Respiratory Rate 14 /min MD [facility] Work Phone: 03-02-2016 09:04-0400 Weight 62.42 kg Saúl Barney MD [facility] Work Phone: 01-16-2016 15:37-0400 Height 157.48 cm Saúl Barney MD [facility] Work Phone: 08-14-2015 09:06-0500 Body Temperature 97.2 [degF] Joyce Roe MD Work Phone: [facility] Work Phone: Comment on above: Method: Oral adjust entry weight was wrong 08-14-2015 09:06-0500 BP Diastolic 74 mm[Hg] Joyce Roe MD Work Phone: [facility] Work Phone: Comment on above: Patient Position: Sitting adjust entry weight was wrong 08-14-2015 09:06-0500 BP Systolic 122 mm[Hg] Joyce Roe MD Work Phone: [facility] Work Phone: Comment on above: Patient Position: Sitting adjust entry weight was wrong 08-14-2015 09:06-0500 Pulse (Heart Rate) 60 /min Joyce Roe MD Work Phone: [facility] Work Phone: Comment on above: Pattern: Regular adjust entry weight was wrong 08-14-2015 09:06-0500 Pulse Oximetry 94 % Joyce Roe [facility] Work Phone: Comment on above: Room air adjust entry weight was wrong 08-14-2015 09:06-0500 Respiratory Rate 15 /min Joyce Roe MD Work Phone: [facility] Work Phone: Comment on above: adjust entry weight was wrong 08-14-2015 09:06-0500 SaO2% (BldA) [Mass fraction] 94 % Joyce Roe MD Work Phone: [facility]; [facility] Work Phone: 06-07-2015 09:13-0400 BMI (Body Mass Index) 24.51 kg/m2 BARBER Lowery LPN [facility] Work Phone: 06-07-2015 09:13-0400 Body Temperature 97.9 [degF] BARBER Lowery LPN [facility] Work Phone: Comment on above: Method: Temporal 06-07-2015 09:130400 Body weight 60.78 kg BARBER Lowery LPN [facility] Work Phone: 06-07-2015 09:13-0400 BP Diastolic 78 mm[Hg] BARBER Lowery LPN [facility] Work Phone: Comment on above: Patient Position: Sitting; Cuff Location : Left Arm; Cuff Size: Standard 06-07-2015 09:13-0400 BP Systolic 120 mm[Hg] BARBER Lowery LPN [facility] Work Phone: Comment on above: Patient Position: Sitting; Cuff Location : Left Arm; Cuff Size: Standard 06-07-2015 09:130400 BSA (Body Surface Area) 1.61 m2 BARBER Lowery LPN [facility] Work Phone: 06-07-2015 09:13-0400 Height 157.48 cm BARBER Lowery LPN [facility] Work Phone: 06-07-2015 09:13-0400 Pulse (Heart Rate) 64 /min BARBER Lowery LPN [facility] Work Phone: Comment on above: Pattern: Regular 06-07-2015 09:13-0400 Pulse Oximetry 98 % Joyce Roe [facility] Work Phone: Comment on above: Room air 06-07-2015 09:13-0400 Respiratory Rate 18 /min BARBER Lowery LPN [facility] Work Phone: Comment on above: Pattern: Unlabored 06-07-2015 09:13-0400 SaO2% (BldA) [Mass fraction] 98 % BARBER Lowery LPN [facility]; [facility] Work Phone: 06-07-2015 09:13-0400 Weight 60.78 kg Joyce Roe [facility] Work Phone: 03-29-2015 11:02-0400 BMI (Body Mass Index) 24.51 kg/m2 BARBER Lowery LPN [facility] Work Phone: 03-29-2015 11:02-0400 Body Temperature 97.9 [degF] BARBER Lowery LPN [facility] Work Phone: Comment on above: Method: Temporal 03-29-2015 11:02-0400 Body weight 60.78 kg BARBER Lowery LPN [facility] Work Phone: 03-29-2015 11:02-0400 BP Diastolic 78 mm[Hg] BARBER Lowery LPN [facility] Work Phone: Comment on above: Patient Position: Sitting; Cuff Location : Left Arm; Cuff Size: Standard 03-29-2015 11:02-0400 BP Systolic 124 mm[Hg] BARBER Lowery LPN [facility] Work Phone: Comment on above: Patient Position: Sitting; Cuff Location : Left Arm; Cuff Size: Standard 03-29-2015 11:02-0400 BSA (Body Surface Area) 1.61 m2 BARBER Lowery LPN [facility] Work Phone: 03-29-2015 11:02-0400 Height 157.48 cm BARBER Lowery [employer] [facility] Work Phone: 03-29-2015 11:02-0400 Pulse (Heart Rate) 60 /min BARBER Lowery LPN [facility] Work Phone: Comment on above: Pattern: Regular 03-29-2015 11:02-0400 Pulse Oximetry 98 % Joyce Roe [facility] Work Phone: Comment on above: Room air 03-29-2015 11:02-0400 Respiratory Rate 18 /min BARBER Lowery LPN [facility] Work Phone: Comment on above: Pattern: Unlabored 03-29-2015 11:02-0400 SaO2% (BldA) [Mass fraction] 98 % BARBER Lowery LPN [facility]; [facility] Work Phone: 03-29-2015 11:02-0400 Weight 60.78 kg Joyce Roe [facility] Work Phone: 01-25-2015 10:06-0400 BMI (Body Mass Index) 24.6 kg/m2 Beth Wasserman [facility] Work Phone: 01-25-2015 10:06-0400 Body Temperature 97.4 [degF] Beth Wasserman [facility] Work Phone: Comment on above: Method: Tympanic 01-25-2015 10:06-0400 Body weight 61.01 kg Beth Wasserman [facility] Work Phone: 01-25-2015 10:06-0400 BP Diastolic 82 mm[Hg] Beth Wasserman [facility] Work Phone: Comment on above: Patient Position: Sitting; Cuff Location : Left Arm; Cuff Size: Standard 01-25-2015 10:06-0400 BP Systolic 138 mm[Hg] Beth Wasserman [facility] Work Phone: Comment on above: Patient Position: Sitting; Cuff Location : Left Arm; Cuff Size: Standard 01-25-2015 10:06-0400 BSA (Body Surface Area) 1.62 m2 Beth Wasserman [facility] Work Phone: 01-25-2015 10:06-0400 Height 157.48 cm Beth Wasserman [facility] Work Phone: 01-25-2015 10:06-0400 Pulse (Heart Rate) 61 /min Beth Wasserman [facility] Work Phone: Comment on above: Pattern: Regular 01-25-2015 10:06-0400 Pulse Oximetry 98 % Joyce Roe [facility] Work Phone: Comment on above: Room air 01-25-2015 10:06-0400 Respiratory Rate 18 /min Beth Wasserman [facility] Work Phone: Comment on above: Pattern: Unlabored 01-25-2015 10:06-0400 SaO2% (BldA) [Mass fraction] 98 % Beth Wasserman [facility]; [facility] Work Phone: 01-25-2015 10:06-0400 Weight 61.01 kg Joyce Roe [facility] Work Phone: 01-22-2015 10:34-0400 BMI (Body Mass Index) 24.33 kg/m2 Melissa Mott RN [facility] Work Phone: 01-22-2015 10:34-0400 Body weight 60.33 kg Melissa Mott RN [facility] Work Phone: 01-22-2015 10:34-0400 BP Diastolic 78 mm[Hg] Melissa Mott RN [facility] Work Phone: 01-22-2015 10:34-0400 BP Systolic 122 mm[Hg] Melissa Mott RN [facility] Work Phone: 01-22-2015 10:34-0400 BSA (Body Surface Area) 1.61 m2 Melissa Mott RN [facility] Work Phone: 01-22-2015 10:34-0400 Height 157.48 cm Melissa Mott RN [facility] Work Phone: 01-22-2015 10:34-0400 Pulse (Heart Rate) 67 /min Melissa Mott RN [facility] Work Phone: Comment on above: Pattern: Regular 01-22-2015 10:34-0400 Pulse Oximetry 95 % Joyce Roe [facility] Work Phone: Comment on above: Room air 01-22-2015 10:34-0400 Respiratory Rate 20 /min Melissa Mott RN [facility] Work Phone: Comment on above: Pattern: Unlabored 01-22-2015 10:34-0400 SaO2% (BldA) [Mass fraction] 95 % Melissa Mott RN [facility]; [facility] Work Phone: 01-22-2015 10:34-0400 Weight 60.33 kg Joyce Roe [facility] Work Phone: 01-10-2015 09:55-0400 BMI (Body Mass Index) 24.6 kg/m2 Melissa Mott RN [facility] Work Phone: 01-10-2015 09:55-0400 Body weight 61.01 kg Melissa Mott RN [facility] Work Phone: 01-10-2015 09:55-0400 BP Diastolic 60 mm[Hg] Melissa Mott RN [facility] Work Phone: Comment on above: Patient Position: Sitting; Cuff Location : Left Arm; Cuff Size: Large 01-10-2015 09:55-0400 BP Systolic 118 mm[Hg] Melissa Mott RN [facility] Work Phone: Comment on above: Patient Position: Sitting; Cuff Location : Left Arm; Cuff Size: Large 01-10-2015 09:55-0400 BSA (Body Surface Area) 1.62 m2 Melissa Mott RN [facility] Work Phone: 01-10-2015 09:55-0400 Height 157.48 cm Melissa Mott RN [facility] Work Phone: 01-10-2015 09:55-0400 Pulse (Heart Rate) 64 /min Melissa Mott RN [facility] Work Phone: Comment on above: Pattern: Regular 01-10-2015 09:55-0400 Pulse Oximetry 96 % Joyce Glasschong [facility] Work Phone: Comment on above: Room air 01-10-2015 09:55-0400 Respiratory Rate 18 /min Melissa Mott RN [facility] Work Phone: Comment on above: Pattern: Unlabored 01-10-2015 09:55-0400 SaO2% (BldA) [Mass fraction] 96 % Melissa Mott RN [facility]; [facility] Work Phone: 01-10-2015 09:55-0400 Weight 61.01 kg Joyce Roe [facility] Work Phone: 06-06-2014 10:37-0400 BMI (Body Mass Index) 23.41 kg/m2 Sharmaine Benedict LPN [facility] Work Phone: 06-06-2014 10:37-0400 Body Temperature 96.8 [degF] Sharmaine Benedict LPN [facility] Work Phone: Comment on above: Method: Oral 06-06-2014 10:37-0400 Body weight 58.06 kg Sharmaine Benedict LPN [facility] Work Phone: 06-06-2014 10:37-0400 BP Diastolic 70 mm[Hg] Sharmaine Benedict LPN [facility] Work Phone: Comment on above: Patient Position: Sitting; Cuff Location : Left Arm; Cuff Size: Standard 06-06-2014 10:37-0400 BP Systolic 118 mm[Hg] Sharmaine Benedict LPN [facility] Work Phone: Comment on above: Patient Position: Sitting; Cuff Location : Left Arm; Cuff Size: Standard 06-06-2014 10:37-0400 BSA (Body Surface Area) 1.58 m2 Sharmaine Benedict LPN [facility] Work Phone: 06-06-2014 10:37-0400 Height 157.48 cm Sharmaine Benedict LPN [facility] Work Phone: 06-06-2014 10:37-0400 Pulse (Heart Rate) 53 /min Sharmaine Benedict LPN [facility] Work Phone: Comment on above: Pattern: Regular 06-06-2014 10:37-0400 Pulse Oximetry 97 % Joyce Roe [facility] Work Phone: Comment on above: Room air 06-06-2014 10:37-0400 Respiratory Rate 16 /min Sharmaine Benedict LPN [facility] Work Phone: 06-06-2014 10:37-0400 SaO2% (BldA) [Mass fraction] 97 % Sharmaine Benedict LPN [facility]; [facility] Work Phone: 06-06-2014 10:37-0400 Weight 58.06 kg Joyce Roe [facility] Work Phone: 04-27-2014 09:45-0400 BMI (Body Mass Index) 23.41 kg/m2 Sharmaine Benedict LPN [facility] Work Phone: 04-27-2014 09:45-0400 Body Temperature 97.4 [degF] Sharmaine Benedict LPN [facility] Work Phone: Comment on above: Method: Oral 04-27-2014 09:45-0400 Body weight 58.06 kg Sharmaine Benedict LPN [facility] Work Phone: 04-27-2014 09:45-0400 BP Diastolic 72 mm[Hg] Sharmaine Benedict LPN [facility] Work Phone: Comment on above: Patient Position: Sitting; Cuff Location : Left Arm; Cuff Size: Standard 04-27-2014 09:45-0400 BP Systolic 124 mm[Hg] Sharmaine Benedict LPN [facility] Work Phone: Comment on above: Patient Position: Sitting; Cuff Location : Left Arm; Cuff Size: Standard 04-27-2014 09:45-0400 BSA (Body Surface Area) 1.58 m2 Sharmaine Benedict LPN [facility] Work Phone: 04-27-2014 09:45-0400 Height 157.48 cm Sharmaine Benedict LPN [facility] Work Phone: 04-27-2014 09:45-0400 Pulse (Heart Rate) 64 /min Sharmaine Benedict LPN [facility] Work Phone: Comment on above: Pattern: Regular 04-27-2014 09:45-0400 Pulse Oximetry 98 % Joyce Roe [facility] Work Phone: Comment on above: Room air 04-27-2014 09:45-0400 Respiratory Rate 16 /min Sharmaine Benedict LPN [facility] Work Phone: 04-27-2014 09:45-0400 SaO2% (BldA) [Mass fraction] 98 % Sharmaine Benedict LPN [facility]; [facility] Work Phone: 04-27-2014 09:45-0400 Weight 58.06 kg Joyce Roe [facility] Work Phone: 01-05-2014 08:42-0400 BMI (Body Mass Index) 23.41 kg/m2 Sharmaine Benedict LPN [facility] Work Phone: 01-05-2014 08:42-0400 Body Temperature 98.3 [degF] Sharmaine Benedict LPN [facility] Work Phone: Comment on above: Method: Oral 01-05-2014 08:42-0400 Body weight 58.06 kg Sharmaine Benedict LPN [facility] Work Phone: 01-05-2014 08:42-0400 BP Diastolic 70 mm[Hg] Sharmaine Benedict LPN [facility] Work Phone: Comment on above: Patient Position: Sitting; Cuff Location : Left Arm; Cuff Size: Standard 01-05-2014 08:42-0400 BP Systolic 120 mm[Hg] Sharmaine Benedict LPN [facility] Work Phone: Comment on above: Patient Position: Sitting; Cuff Location : Left Arm; Cuff Size: Standard 01-05-2014 08:42-0400 BSA (Body Surface Area) 1.58 m2 Sharmaine Benedict LPN [facility] Work Phone: 01-05-2014 08:42-0400 Height 157.48 cm Sharmaine Benedict LPN [facility] Work Phone: 01-05-2014 08:42-0400 Pulse (Heart Rate) 78 /min Sharmaine Benedict LPN [facility] Work Phone: Comment on above: Pattern: Regular 01-05-2014 08:42-0400 Pulse Oximetry 98 % Joyce Roe [facility] Work Phone: Comment on above: Room air 01-05-2014 08:42-0400 Respiratory Rate 16 /min Sharmaine Benedict LPN [facility] Work Phone: Comment on above: Pattern: Unlabored 01-05-2014 08:42-0400 SaO2% (BldA) [Mass fraction] 98 % Sharmaine Benedict KATERINE [facility]; [facility] Work Phone: 01-05-2014 08:42-0400 Weight 58.06 kg Joyce Roe [facility] Work Phone: 12-27-2013 08:13-0400 BMI (Body Mass Index) 24.79 kg/m2 Sharmaine Benedict KATERINE [facility] Work Phone: 12-27-2013 08:13-0400 Body Temperature 97.8 [degF] Sharmaine Benedict LPN [facility] Work Phone: Comment on above: Method: Oral 12-27-2013 08:130400 Body weight 61.49 kg Sharmaine Benedict LPN [facility] Work Phone: 12-27-2013 08:13-0400 BP Diastolic 68 mm[Hg] Sharmaine Benedict KATERINE [facility] Work Phone: Comment on above: Patient Position: Sitting; Cuff Location : Left Arm; Cuff Size: Standard 12-27-2013 08:130400 BP Systolic 132 mm[Hg] Sharmaine Benedict KATERINE [facility] Work Phone: Comment on above: Patient Position: Sitting; Cuff Location : Left Arm; Cuff Size: Standard 12-27-2013 08:130400 BSA (Body Surface Area) 1.62 m2 Sharmaine Benedict KATERINE [facility] Work Phone: 12-27-2013 08:130400 Height 157.48 cm Sharmaine Benedict LPN [facility] Work Phone: 12-27-2013 08:13-0400 Pulse (Heart Rate) 70 /min Sharmaine Benedict LPN [facility] Work Phone: Comment on above: Pattern: Regular 12-27-2013 08:13-0400 Pulse Oximetry 98 % Joyce Roe [facility] Work Phone: Comment on above: Room air 12-27-2013 08:13-0400 Respiratory Rate 18 /min Sharmaine Benedict LPN [facility] Work Phone: 12-27-2013 08:130400 SaO2% (BldA) [Mass fraction] 98 % Sharmaine Benedict LPN [facility]; [facility] Work Phone: 12-27-2013 08:130400 Weight 61.49 kg Joyce Roe [facility] Work Phone: 04-06-2012 10:09-0400 BMI (Body Mass Index) 24.79 kg/m2 Melissa Mott RN [facility] Work Phone: 04-06-2012 10:09-0400 Body weight 61.49 kg Melissa Mott RN [facility] Work Phone: 04-06-2012 10:09-0400 BP Diastolic 88 mm[Hg] Melissa Mott RN [facility] Work Phone: Comment on above: Patient Position: Sitting; Cuff Location : Left Arm; Cuff Size: Large 04-06-2012 10:09-0400 BP Systolic 158 mm[Hg] Melissa Mott RN [facility] Work Phone: Comment on above: Patient Position: Sitting; Cuff Location : Left Arm; Cuff Size: Large 04-06-2012 10:090400 BSA (Body Surface Area) 1.62 m2 Melissa Mott RN [facility] Work Phone: 04-06-2012 10:09-0400 Height 157.48 cm Melissa Mott RN [facility] Work Phone: 04-06-2012 10:09-0400 Pulse (Heart Rate) 60 /min Melissa Mott RN [facility] Work Phone: Comment on above: Pattern: Regular 04-06-2012 10:09-0400 Respiratory Rate 20 /min Melissa Mott RN [facility] Work Phone: Comment on above: Pattern: Unlabored 04-06-2012 10:09-0400 Weight 61.49 kg Joyce Roe [facility] Work Phone: 11-26-2011 12:23-0400 BMI (Body Mass Index) 23.78 kg/m2 BARBER Lowery LPN [facility] Work Phone: 11-26-2011 12:23-0400 Body Temperature 97.9 [degF] BARBER Lowery LPN [facility] Work Phone: Comment on above: Method: Oral 11-26-2011 12:23-0400 Body weight 58.97 kg BARBER Lowery LPN [facility] Work Phone: 11-26-2011 12:23-0400 BP Diastolic 84 mm[Hg] BARBER Lowery LPN [facility] Work Phone: Comment on above: Patient Position: Sitting; Cuff Location : Left Arm; Cuff Size: Standard 11-26-2011 12:23-0400 BP Systolic 134 mm[Hg] BARBER Lowery LPN [facility] Work Phone: Comment on above: Patient Position: Sitting; Cuff Location : Left Arm; Cuff Size: Standard 11-26-2011 12:23-0400 BSA (Body Surface Area) 1.59 m2 BARBER Lowery LPN [facility] Work Phone: 11-26-2011 12:23-0400 Height 157.48 cm BARBER Lowery LPN [facility] Work Phone: 11-26-2011 12:23-0400 Pulse (Heart Rate) 68 /min BARBER Lowery LPN [facility] Work Phone: Comment on above: Pattern: Regular 11-26-2011 12:23-0400 Respiratory Rate 20 /min BARBER Lowery LPN [facility] Work Phone: Comment on above: Pattern: Unlabored 11-26-2011 12:23-0400 Weight 58.97 kg Joyce Glasschong [facility] Work Phone: 05-01-2011 08:57-0400 BMI (Body Mass Index) 23.78 kg/m2 Sharmaine Benedict [facility] Work Phone: 05-01-2011 08:57-0400 Body weight 58.97 kg Sharmaine Benedict [facility] Work Phone: 05-01-2011 08:57-0400 BP Diastolic 84 mm[Hg] Sharmaine Benedict LPN [facility] Work Phone: Comment on above: Patient Position: Sitting; Cuff Location : Left Arm; Cuff Size: Standard 05-01-2011 08:57-0400 BP Systolic 142 mm[Hg] Sharmaine Benedict LPN [facility] Work Phone: Comment on above: Patient Position: Sitting; Cuff Location : Left Arm; Cuff Size: Standard 05-01-2011 08:57-0400 BSA (Body Surface Area) 1.59 m2 Sharmaine Benedict LPN [facility] Work Phone: 05-01-2011 08:57-0400 Height 157.48 cm Sharmaine Benedict LPN [facility] Work Phone: 05-01-2011 08:57-0400 Pulse (Heart Rate) 78 /min Sharmaine Benedict [employer] [facility] Work Phone: Comment on above: Pattern: Regular 05-01-2011 08:57-0400 Respiratory Rate 15 /min Sharmaine Benedict LPN [facility] Work Phone: Comment on above: Pattern: Unlabored 05-01-2011 08:57-0400 Weight 58.97 kg Joyce Roe [facility] Work Phone: 03-24-2011 11:34-0400 BMI (Body Mass Index) 23.78 kg/m2 BARBER Lowery [employer] [facility] Work Phone: 03-24-2011 11:34-0400 Body Temperature 97.6 [degF] BARBER Lowery [employer] [facility] Work Phone: Comment on above: Method: Oral 03-24-2011 11:34-0400 Body weight 58.97 kg BARBER Lowery [employer] [facility] Work Phone: 03-24-2011 11:34-0400 BP Diastolic 78 mm[Hg] BARBER Lowery [employer] [facility] Work Phone: Comment on above: Patient Position: Sitting; Cuff Location : Left Arm; Cuff Size: Standard 03-24-2011 11:34-0400 BP Systolic 132 mm[Hg] BARBER Lowery KATERINE [facility] Work Phone: Comment on above: Patient Position: Sitting; Cuff Location : Left Arm; Cuff Size: Standard 03-24-2011 11:34-0400 BSA (Body Surface Area) 1.59 m2 BARBER Lowery KATERINE [facility] Work Phone: 03-24-2011 11:34-0400 Height 157.48 cm BARBER Lowery KATERINE [facility] Work Phone: 03-24-2011 11:34-0400 Pulse (Heart Rate) 64 /min BARBER Lowery [employer] [facility] Work Phone: Comment on above: Pattern: Regular 03-24-2011 11:34-0400 Respiratory Rate 18 /min BARBER Lowery KATERINE [facility] Work Phone: Comment on above: Pattern: Unlabored 03-24-2011 11:34-0400 Weight 58.97 kg Joyce Arden [facility] Work Phone: 03-20-2011 13:16-0400 BMI (Body Mass Index) 24.14 kg/m2 Melissa Mott RN [facility] Work Phone: 03-20-2011 13:16-0400 Body weight 59.88 kg Melissa Mott RN [facility] Work Phone: 03-20-2011 13:16-0400 BP Diastolic 62 mm[Hg] Melissa Mott RN [facility] Work Phone: Comment on above: Patient Position: Sitting; Cuff Location : Left Arm; Cuff Size: Standard 03-20-2011 13:16-0400 BP Systolic 148 mm[Hg] Melissa Mott RN [facility] Work Phone: Comment on above: Patient Position: Sitting; Cuff Location : Left Arm; Cuff Size: Standard 03-20-2011 13:16-0400 BSA (Body Surface Area) 1.6 m2 Melissa Mott RN [facility] Work Phone: 03-20-2011 13:16-0400 Height 157.48 cm Melissa Mott RN [facility] Work Phone: 03-20-2011 13:16-0400 Pulse (Heart Rate) 80 /min Melissa Mott RN [facility] Work Phone: Comment on above: Pattern: Regular 03-20-2011 13:16-0400 Respiratory Rate 18 /min Melissa Mott RN [facility] Work Phone: Comment on above: Pattern: Unlabored 03-20-2011 13:16-0400 Weight 59.88 kg Joyce Roe [facility] Work Phone: 03-18-2011 08:54-0400 BMI (Body Mass Index) 24.14 kg/m2 Sharmaine Jak GARCIAS [facility] Work Phone: 03-18-2011 08:54-0400 Body Temperature 99 [degF] Sharmaine Benedict KATERINE [facility] Work Phone: Comment on above: Method: Oral 03-18-2011 08:54-0400 Body weight 59.88 kg Sharmaine Benedict KATERINE [facility] Work Phone: 03-18-2011 08:54-0400 BP Diastolic 78 mm[Hg] Sharmaine Benedict KATERINE [facility] Work Phone: Comment on above: Patient Position: Sitting; Cuff Location : Left Arm; Cuff Size: Standard 03-18-2011 08:54-0400 BP Systolic 124 mm[Hg] Sharmaine Benedict KATERINE [facility] Work Phone: Comment on above: Patient Position: Sitting; Cuff Location : Left Arm; Cuff Size: Standard 03-18-2011 08:54-0400 BSA (Body Surface Area) 1.6 m2 Sharmaine Benedict KATERINE [facility] Work Phone: 03-18-2011 08:54-0400 Height 157.48 cm Sharmaine Benedict KATERINE [facility] Work Phone: 03-18-2011 08:54-0400 Pulse (Heart Rate) 69 /min Sharmaine Benedict KATERINE [facility] Work Phone: Comment on above: Pattern: Regular 03-18-2011 08:54-0400 Pulse Oximetry 94 % Joyce Roe [facility] Work Phone: Comment on above: Room air 03-18-2011 08:54-0400 Respiratory Rate 17 /min Sharmaine Benedict LPN [facility] Work Phone: Comment on above: Pattern: Unlabored 03-18-2011 08:54-0400 SaO2% (BldA) [Mass fraction] 94 % Sharmaine Benedict [employer] [facility]; [facility] Work Phone: 03-18-2011 08:54-0400 Weight 59.88 kg Joyce Roe [facility] Work Phone: 01-05-2011 08:32-0400 BMI (Body Mass Index) 24.14 kg/m2 Sharmaine Benedict KATERINE [facility] Work Phone: 01-05-2011 08:32-0400 Body Temperature 97.1 [degF] Sharmaine Benedict LPN [facility] Work Phone: Comment on above: Method: Oral 01-05-2011 08:32-0400 Body weight 59.88 kg Sharmaine Benedict LPN [facility] Work Phone: 01-05-2011 08:32-0400 BP Diastolic 82 mm[Hg] Sharmaine Benedict LPN [facility] Work Phone: Comment on above: Patient Position: Sitting; Cuff Location : Left Arm; Cuff Size: Standard 01-05-2011 08:32-0400 BP Systolic 122 mm[Hg] Sharmaine Benedict LPN [facility] Work Phone: Comment on above: Patient Position: Sitting; Cuff Location : Left Arm; Cuff Size: Standard 01-05-2011 08:32-0400 BSA (Body Surface Area) 1.6 m2 Sharmaine Benedict LPN [facility] Work Phone: 01-05-2011 08:32-0400 Height 157.48 cm Sharmaine Benedict KATERINE [facility] Work Phone: 01-05-2011 08:32-0400 Pulse (Heart Rate) 72 /min Sharmaine Benedict LPN [facility] Work Phone: Comment on above: Pattern: Regular 01-05-2011 08:32-0400 Respiratory Rate 16 /min Sharmaine Benedict LPN [facility] Work Phone: Comment on above: Pattern: Unlabored 01-05-2011 08:32-0400 Weight 59.88 kg Joyce Roe [facility] Work Phone: 12-17-2010 08:02-0400 BMI (Body Mass Index) 24.14 kg/m2 Sharmaine Benedict LPN [facility] Work Phone: 12-17-2010 08:02-0400 Body Temperature 97 [degF] Sharmaine Benedict [employer] [facility] Work Phone: Comment on above: Method: Oral 12-17-2010 08:02-0400 Body weight 59.88 kg Sharmaine Benedict LPN [facility] Work Phone: 12-17-2010 08:02-0400 BP Diastolic 70 mm[Hg] Sharmaine Benedict LPN [facility] Work Phone: Comment on above: Patient Position: Sitting; Cuff Location : Left Arm; Cuff Size: Standard 12-17-2010 08:02-0400 BP Systolic 132 mm[Hg] Sharmaine Benedict LPN [facility] Work Phone: Comment on above: Patient Position: Sitting; Cuff Location : Left Arm; Cuff Size: Standard 12-17-2010 08:02-0400 BSA (Body Surface Area) 1.6 m2 Sharmaine Benedict LPN [facility] Work Phone: 12-17-2010 08:02-0400 Height 157.48 cm Sharmaine Benedict [employer] [facility] Work Phone: 12-17-2010 08:02-0400 Pulse (Heart Rate) 66 /min Sharmaine Benedict LPN [facility] Work Phone: Comment on above: Pattern: Regular 12-17-2010 08:02-0400 Respiratory Rate 15 /min Sharmaine Jak [facility] Work Phone: Comment on above: Pattern: Unlabored 12-17-2010 08:02-0400 Weight 59.88 kg Joyce Roe [facility] Work Phone: 06-10-2010 15:17-0400 Body Temperature 98.2 [degF] BARBER Lowery [facility] Work Phone: Comment on above: Method: Oral 06-10-2010 15:17-0400 Body weight 59.88 kg BARBER Lowery [facility] Work Phone: 06-10-2010 15:17-0400 BP Diastolic 74 mm[Hg] BARBER Lowery [facility] Work Phone: Comment on above: Patient Position: Sitting; Cuff Location : Left Arm; Cuff Size: Standard 06-10-2010 15:17-0400 BP Systolic 116 mm[Hg] BARBER Lowery [facility] Work Phone: Comment on above: Patient Position: Sitting; Cuff Location : Left Arm; Cuff Size: Standard 06-10-2010 15:17-0400 Pulse (Heart Rate) 70 /min BARBER Lowery [facility] Work Phone: Comment on above: Pattern: Regular 06-10-2010 15:17-0400 Respiratory Rate 18 /min BARBER Lowery [facility] Work Phone: Comment on above: Pattern: Unlabored 06-10-2010 15:17-0400 Weight 59.88 kg Joyce Roe [facility] Work Phone: 05-27-2009 09:22-0400 BMI (Body Mass Index) 24.14 kg/m2 Joyce Roe [facility] Work Phone: 05-27-2009 09:22-0400 Body weight 59.88 kg Joyce Roe [facility] Work Phone: 05-27-2009 09:22-0400 BP Diastolic 72 mm[Hg] Joyce Welchi [facility] Work Phone: Comment on above: Patient Position: Supine; Cuff Location: Left Arm; Cuff Size: Standard 05-27-2009 09:22-0400 BP Systolic 120 mm[Hg] [facility] Work Phone: Comment on above: Patient Position: Supine; Cuff Location: Left Arm; Cuff Size: Standard 05-27-2009 09:22-0400 BSA (Body Surface Area) 1.6 m2 [facility] Work Phone: 05-27-2009 09:22-0400 Head Circumference 0 cm [facility] Work Phone: 05-27-2009 09:22-0400 Head Occipital-frontal circumference 0 cm Joyce Roe MD Work Phone: [facility]; [facility] Work Phone: 05-27-2009 09:22-0400 Height 157.48 cm [facility] Work Phone: 05-27-2009 09:22-0400 Pulse (Heart Rate) 72 /min [facility] Work Phone: Comment on above: Pattern: Regular 05-27-2009 09:22-0400 Respiratory Rate 16 /min [facility]elizabeth [facility] Work Phone: Comment on above: Pattern: Unlabored 05-27-2009 09:22-0400 Weight 59.88 kg Joyce [facility] Work Phone: 05-15-2009 10:37-0400 BMI (Body Mass Index) 24.14 kg/m2 Joyce Quanchong [facility] Work Phone: 05-15-2009 10:37-0400 Body weight 59.88 kg Joyceelizabeth [facility] Work Phone: 05-15-2009 10:37-0400 BP Diastolic 80 mm[Hg] Joyce [facility] Work Phone: Comment on above: Patient Position: Supine; Cuff Location: Left Arm; Cuff Size: Standard 05-15-2009 10:37-0400 BP Systolic 122 mm[Hg] Joyce Welchi [facility] Work Phone: Comment on above: Patient Position: Supine; Cuff Location: Left Arm; Cuff Size: Standard 05-15-2009 10:37-0400 BSA (Body Surface Area) 1.6 m2 Joyce Roe [facility] Work Phone: 05-15-2009 10:37-0400 Head Circumference 0 cm Joyce Welchi [facility] Work Phone: 05-15-2009 10:37-0400 Head Occipital-frontal circumference 0 cm Joyce Roe NE Work Phone: [facility]; [facility] Work Phone: 05-15-2009 10:37-0400 Height 157.48 cm Joyce Roe [facility] Work Phone: 05-15-2009 10:37-0400 Pulse (Heart Rate) 66 /min Joyce Welchi [facility] Work Phone: Comment on above: Pattern: Regular 05-15-2009 10:37-0400 Respiratory Rate 16 /min Joyce Welchi [facility] Work Phone: Comment on above: Pattern: Unlabored 05-15-2009 10:37-0400 Weight 59.88 kg Joyce Roe [facility] Work Phone: 05-01-2009 08:37-0400 BMI (Body Mass Index) 24.14 kg/m2 Joyce Roe [facility] Work Phone: 05-01-2009 08:37-0400 Body Temperature 97.1 [degF] Joyce Welchi [facility] Work Phone: Comment on above: Method: Oral 05-01-2009 08:37-0400 Body weight 59.88 kg Joyce Roe [facility] Work Phone: 05-01-2009 08:37-0400 BP Diastolic 70 mm[Hg] Joyce Bonemikaelai [facility] Work Phone: Comment on above: Patient Position: Supine; Cuff Location: Left Arm; Cuff Size: Standard 05-01-2009 08:37-0400 BP Systolic 138 mm[Hg] [facility]elizabeth [facility] Work Phone: Comment on above: Patient Position: Supine; Cuff Location: Left Arm; Cuff Size: Standard 05-01-2009 08:37-0400 BSA (Body Surface Area) 1.6 m2 Joyce [facility] Work Phone: 05-01-2009 08:37-0400 Head Circumference 0 cm [facility] Work Phone: 05-01-2009 08:37-0400 Head Occipital-frontal circumference 0 cm Joyce Roe NE Work Phone: [facility]; [facility] Work Phone: 05-01-2009 08:37-0400 Height 157.48 cm [facility] Work Phone: 05-01-2009 08:37-0400 Pulse (Heart Rate) 66 /min [facility]elizabeth [facility] Work Phone: Comment on above: Pattern: Regular 05-01-2009 08:37-0400 Weight 59.88 kg [facility]elizabeth [facility] Work Phone: 03-15-2007 08:00-0400 Body Temperature 97.4 [degF] [facility] Work Phone: Comment on above: Method: Oral 03-15-2007 08:00-0400 Body weight 0 kg [facility]elizabeth [facility] Work Phone: 03-15-2007 08:00-0400 BP Diastolic 76 mm[Hg] [facility] Work Phone: Comment on above: Patient Position: Sitting; Cuff Location : Left Arm; Cuff Size: Standard 03-15-2007 08:00-0400 BP Systolic 138 mm[Hg] [facility] Work Phone: Comment on above: Patient Position: Sitting; Cuff Location : Left Arm; Cuff Size: Standard 03-15-2007 08:00-0400 Head Circumference 0 cm Joyce Roe [facility] Work Phone: 03-15-2007 08:00-0400 Head Occipital-frontal circumference 0 cm Joyce Roe NE Work Phone: [facility]; [facility] Work Phone: 03-15-2007 08:00-0400 Height 0 cm Joyce Roe [facility] Work Phone: 03-15-2007 08:00-0400 Pulse (Heart Rate) 64 /min Joyce Roe [facility] Work Phone: Comment on above: Pattern: Regular 03-15-2007 08:00-0400 Respiratory Rate 16 /min Joyce Roe [facility] Work Phone: Comment on above: Pattern: Unlabored 03-15-2007 08:00-0400 Weight 0 kg Joyce Roe [facility] Work Phone: 01-28-2007 08:45-0400 Body Temperature 97.7 [degF] [facility] Work Phone: Comment on above: Method: Oral 01-28-2007 08:45-0400 Body weight 0 kg Taya Mendiola [facility] Work Phone: 01-28-2007 08:45-0400 BP Diastolic 66 mm[Hg] [facility] Work Phone: Comment on above: Patient Position: Sitting; Cuff Location : Right Arm; Cuff Size: Standard 01-28-2007 08:45-0400 BP Systolic 134 mm[Hg] [facility] Work Phone: Comment on above: Patient Position: Sitting; Cuff Location : Right Arm; Cuff Size: Standard 01-28-2007 08:45-0400 Head Circumference 0 cm Joyce Roe [facility] Work Phone: 01-28-2007 08:45-0400 Head Occipital-frontal circumference 0 cm [facility]; [facility] Work Phone: 01-28-2007 08:45-0400 Height 0 cm Taya Maury [facility] Work Phone: 01-28-2007 08:45-0400 Pulse (Heart Rate) 52 /min Taya Maury [facility] Work Phone: Comment on above: Pattern: Regular 01-28-2007 08:45-0400 Respiratory Rate 16 /min Taya Maury [facility] Work Phone: Comment on above: Pattern: Unlabored 01-28-2007 08:45-0400 Weight 0 kg Joyce Roe [facility] Work Phone: Encounters Encounter Date Encounter Type Care Provider Facility Start: 07-16-2025 ambulatory Joyce Roe Facility:[facility] Start: 06-11-2025 End: 06-11-[address] Curt Stark MD -[facility] Work Phone: Start: 06-11-2025 End: 06-11-[address] Joyce Roe MD Work Phone: -[facility] Start: 06-11-2025 Registered Recurring Oneida Valencia -Physical Therapy Work Phone: Start: 04-03-2025 End: 04-03-[address] Curt Stark MD -[facility] Work Phone: Start: 04-03-2025 End: 04-03-[address] Joyce Roe MD Work Phone: -[facility] Start: 03-29-2025 End: 03-29-[address] Saúl Barney MD -[facility] Work Phone: Start: 03-29-2025 End: 03-29-[address] Joyce Roe MD Work Phone: -[facility] Start: 03-23-2025 End: 03-23-2025 Patient encounter procedure Jerzy Glass MD Work Phone: [facility] Comment on above: Intracranial meningi vannessa (HCC) (Primary Dx) Start: 03-23-2025 End: 03-23-2025 ambulatory JERZY GLASS Facility:[facility] Start: 03-16-2025 ambulatory ARIANE TOLENTINO Facility :[facility] Start: 03-16-2025 End: 03-16-2025 Subsequent hospital visit by physician Mri [employer] [facility] W[facility] (I-Stat/1.5t) Work Phone: Radiology Comment on above: Intracranial meningi vannessa (HCC) [D32.0] Start: 03-15-2025 Non-patient / Non-visit Dr. Celine FRAUSTO -[facility] Start: 03-15-2025 End: 03-15-[address] Joyce Roe MD Work Phone: -[facility] Services Start: 03-15-2025 End: 03-15-[address] Joyce Roe MD -Cardiovascular Services Work Phone: Start: 03-15-2025 End: 03-15-2025 ambulatory Joyce Roe Facility:[facility] Start: 01-22-2025 End: 01-22-[address] Joyce Roe MD Work Phone: [facility] Work Phone: Start: 01-22-2025 End: 01-22-[address] Joyce Roe MD -[facility]patient [facility] Work Phone: Start: 01-22-2025 End: 01-22-2025 ambulatory Joyce Roe Facility:[facility] Start: 01-10-2025 End: 01-10-[address] Joyce Roe MD Work Phone: [facility] Work Phone: Start: 01-10-2025 End: 01-10-[address] 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) Start: 10-17-2024 End: 10-17-2024 ambulatory JERZY GLASS Facility:[facility] Start: 10-17-2024 End: 10-17-2024 Patient encounter procedure Jerzy Glass MD Work Phone: [facility] Comment on above: Intracranial meningi vannessa (HCC) (Primary Dx) Start: 10-10-2024 End: 10-10-2024 Subsequent hospital visit by physician Yoni Neal Retirement Assistant [employer] Comment on above: Intracranial meningi vannessa (HCC) [D32.0] Start: 10-10-2024 End: 10-10-2024 Patient encounter procedure Jerzy Glass MD Work Phone: [facility] Comment on above: Intracranial meningi vannessa (HCC) (Primary Dx); Benign neoplasm of meninges (HCC) Start: 10-10-2024 End: 10-10-2024 ambulatory JERZY GLASS Facility:[facility] Start: 10-05-2024 End: 10-05-2024 Telephone encounter Jerzy Glass MD Work Phone: [facility] Start: 09-30-2024 End: 10-03-2024 ambulatory [facility] Start: 09-30-2024 End: 09-30-2024 Subsequent hospital visit by physician Lavon 2e Cr Nonv1 [facility] Comment on above: Arrived Start: 09-30-2024 End: 09-30-2024 Emergency department patient visit NO ASSIGNED PCP GENERIC PROVIDER [facility] Start: 09-29-2024 ambulatory Abdi Choi Facility :[facility] Start: 09-29-2024 Non-patient / Non-visit Abdi Dupree nd DO -[facility] Start: 09-29-2024 End: 09-29-2024 Admission to same day surgery center Abdi Choi DO -Endoscopy Work Phone: Start: 09-29-2024 End: 09-29-2024 ambulatory Abdi [place] Facility:[facility] Start: 09-13-2024 ambulatory Abdi [place] Facility :[facility] Start: 08-29-2024 ambulatory [facility] Facility:[facility] Start: 08-28-2024 [facility] Start: 07-20-2023 End: 07-20-2023 ambulatory [facility] Work Phone: Start: 07-20-2023 End: 07-20-2023 Patient encounter procedure [facility]-Outpatient Bone Densitometry Work Phone: Start: 07-16-2023 End: 07-16-2023 ambulatory [facility] Work Phone: Start: 07-16-2023 End: 07-16-2023 Patient encounter procedure [facility]-Outpatient Bone Densitometry Work Phone: Start: 07-05-2023 End: 07-05-2023 Joyce Roe MD Work Phone: [facility] Start: 05-25-2023 End: 05-28-2023 Office outpatient visit 5 minutes Joyce Roe MD Work Phone: [facility] Start: 03-04-2023 End: 03-04-2023 Office outpatient visit 15 minutes Joyce Roe MD Work Phone: [facility] Start: 01-20-2023 ambulatory Joyce Roe MD [facility] Start: 01-18-2023 End: 01-18-2023 Office outpatient visit 15 minutes Joyce Roe MD Work Phone: [facility] Start: 01-14-2023 End: 01-14-2023 ambulatory [facility] Work Phone: Start: 01-14-2023 End: 01-14-2023 Patient encounter procedure [facility] Start: 12-31-2022 End: 12-31-2022 Office outpatient visit 25 minutes Joyce Roe MD Work Phone: [facility] Start: 12-31-2022 End: 12-31-2022 Patient encounter procedure Joyce Roe MD Work Phone: [facility]; [facility] Work Phone: Start: 07-15-2022 End: 07-15-2022 ambulatory [facility] Work Phone: Start: 07-15-2022 End: 07-15-2022 Patient encounter procedure [facility]-Outpatient Breast Imaging Start: 06-30-2022 End: 06-30-2022 Patient encounter procedure Joyce Roe MD Work Phone: [facility]; [facility] Work Phone: Start: 06-30-2022 End: 06-30-2022 Joyce Roe MD Work Phone: [facility] Start: 06-16-2022 End: 06-15-2022 Joyce Roe MD Work Phone: [facility] Start: 06-08-2022 End: 06-08-2022 Joyce Roe MD Work Phone: [facility] Start: 05-09-2022 End: 05-09-2022 Patient encounter procedure [facility] Start: 05-04-2022 End: 05-04-2022 Office outpatient visit 25 minutes Joyce Roe MD Work Phone: [facility] Start: 05-04-2022 End: 05-04-2022 Patient encounter procedure Joyce Roe MD Work Phone: [facility] Start: 03-23-2022 End: 06-29-2022 Joyce Roe MD Work Phone: [facility] Start: 03-18-2022 End: 03-18-2022 Office outpatient visit 25 minutes Joyce Roe MD Work Phone: [facility] Start: 03-12-2022 End: 03-12-2022 Office outpatient visit 25 minutes Joyce Roe MD Work Phone: [facility] Start: 03-12-2022 End: 03-12-2022 Joyce Roe MD Work Phone: [facility] Start: 12-25-2021 End: 12-25-2021 Joyce Roe MD Work Phone: [facility] Start: 12-25-2021 End: 12-25-2021 Patient encounter procedure [facility] Start: 12-25-2021 End: 12-25-2021 Periodic preventive med est patient 18-39 yrs Joyce Roe MD Work Phone: [facility] Start: 12-25-2021 End: 12-25-2021 Office outpatient visit 15 minutes Joyce Roe MD Work Phone: [facility] Start: 12-25-2021 End: 12-25-2021 Patient encounter procedure Joyce Roe MD Work Phone: [facility]; [facility] Work Phone: Start: 10-16-2021 End: 10-16-2021 Office outpatient visit 40 minutes Joyce Roe MD Work Phone: [facility] Start: 08-11-2021 End: 08-11-2021 Office outpatient visit 25 minutes Joyce Roe MD Work Phone: [facility] Start: 07-29-2021 End: 07-29-2021 Periodic preventive med est patient 65yrs& older Joyce Roe MD Work Phone: [facility] Start: 06-24-2021 End: 06-24-2021 Patient encounter status Joyce Roe MD Work Phone: [facility] Start: 06-24-2021 End: 06-24-2021 Joyce Roe MD Work Phone: [facility] Start: 06-20-2021 End: 06-20-2021 Periodic preventive med est patient 18-39 yrs Joyce Roe MD Work Phone: [facility] Start: 06-17-2021 End: 06-24-2021 Office outpatient visit 25 minutes Joyce Roe MD Work Phone: [facility] Start: 06-17-2021 End: 06-24-2021 Patient encounter procedure Joyce Roe MD Work Phone: [facility] Start: 06-06-2021 End: 06-09-2021 Office outpatient visit 10 minutes Joyce Roe MD Work Phone: [facility] Start: 06-02-2021 End: 06-02-2021 Patient encounter status Joyce Roe MD Work Phone: [facility] Start: 06-02-2021 End: 06-02-2021 Joyce Roe MD Work Phone: [facility] Start: 05-09-2021 End: 05-09-2021 Office outpatient visit 25 minutes Joyce Roe MD Work Phone: [facility] Start: 04-02-2021 End: 04-03-2021 Office outpatient visit 40 minutes Joyce Roe MD Work Phone: [facility] Start: 02-14-2021 End: 02-14-2021 Office outpatient visit 15 minutes Joyce Roe MD Work Phone: [facility] Start: 02-08-2021 Joyce Johnson Work Phone: [facility] Start: 01-17-2021 End: 01-17-2021 Office outpatient visit 25 minutes Joyce Roe MD Work Phone: [facility] Start: 01-17-2021 End: 01-17-2021 Patient encounter procedure Joyce Roe MD Work Phone: [facility]; [facility] Work Phone: Start: 06-28-2020 End: 07-04-2020 Office outpatient visit 10 minutes Joyce Roe [facility] Start: 06-28-2020 End: 07-04-2020 Patient encounter procedure Joyce Roe MD Work Phone: [facility] Start: 06-28-2020 Review Joyce Roe [facility] Start: 05-10-2020 End: 05-16-2020 Office outpatient visit 15 minutes Joyce Roe [facility] Start: 01-30-2020 End: 01-30-2020 Office outpatient visit 40 minutes Joyce Roe [facility] Start: 01-30-2020 End: 01-30-2020 Patient encounter procedure Joyce Roe MD Work Phone: [facility] Start: 01-30-2020 End: 01-30-2020 Patient encounter status Joyce Roe MD Work Phone: [facility] Start: 01-12-2020 End: 01-12-2020 Lab Order Joyce Roe [facility] Start: 01-12-2020 End: 01-12-2020 Patient encounter status Joyce Roe MD Work Phone: [facility] Start: 01-12-2020 End: 01-12-2020 Joyce Roe MD Work Phone: [facility] Start: 01-11-2020 End: 01-11-2020 Lab Order Joyce Roe [facility] Start: 01-11-2020 End: 01-11-2020 Joyce Roe MD Work Phone: [facility] Start: 01-11-2020 End: 01-11-2020 Office outpatient visit 15 minutes Joyce Roe [facility] Start: 07-31-2019 End: 08-07-2019 Office outpatient visit 40 minutes Joyce Roe [facility] Start: 07-31-2019 End: 08-07-2019 Patient encounter procedure Joyce Roe MD Work Phone: [facility] Start: 07-24-2019 End: 07-24-2019 Phone Encounter Joyce Roe [facility] Start: 07-24-2019 End: 07-24-2019 Joyce Roe MD Work Phone: [facility] Start: 07-14-2019 End: 07-14-2019 Lab Order Joyce Roe [facility] Start: 07-14-2019 End: 07-14-2019 Joyce Roe MD Work Phone: [facility] Start: 06-15-2019 End: 06-15-2019 Office outpatient visit 10 minutes Joyce Roe [facility] Start: 02-02-2019 End: 02-02-2019 Office outpatient visit 5 minutes Joyce Roe [facility] Start: 02-02-2019 End: 02-02-2019 Patient encounter procedure Joyce Roe MD Work Phone: [facility] Start: 12-22-2018 End: 12-22-2018 Phone Encounter Joyce Roe [facility] Start: 12-22-2018 End: 12-22-2018 Joyce Roe MD Work Phone: [facility] Start: 08-01-2018 End: 08-01-2018 Office outpatient visit 15 minutes Joyce Roe [facility] [facility] Start: 08-01-2018 End: 08-01-2018 Patient encounter procedure Joyce Roe MD Work Phone: [facility] Start: 07-12-2018 End: 07-12-2018 Lab Order Joyce Roe [facility] Start: 07-12-2018 End: 07-12-2018 Joyce Roe MD Work Phone: [facility] Start: 07-12-2018 End: 07-12-2018 Phone Encounter Joyce Roe [facility] Start: 07-12-2018 End: 07-12-2018 Joyce Roe MD Work Phone: [facility] Start: 07-11-2018 End: 07-11-2018 Lab Order Joyce Roe [facility] Start: 07-11-2018 End: 07-11-2018 Joyce Roe MD Work Phone: [facility] Start: 05-16-2018 End: 05-18-2018 Office outpatient visit 40 minutes Joyce Roe [facility] Start: 03-04-2018 End: 03-04-2018 Periodic preventive med est patient 18-39 yrs Joyce Roe [facility] Start: 01-25-2018 End: 01-25-2018 Lab Order Joyce Roe [facility] Start: 01-25-2018 End: 01-25-2018 Joyce Roe MD Work Phone: [facility] Start: 01-18-2018 End: 01-18-2018 Office outpatient visit 15 minutes Joyce Roe [facility] Start: 01-18-2018 End: 01-18-2018 Patient encounter procedure Joyce Roe MD Work Phone: [facility] Start: 12-13-2017 End: 12-13-2017 Office outpatient visit 25 minutes Joyce Roe [facility] Start: 08-02-2017 End: 08-02-2017 Periodic preventive med est patient 18-39 yrs Joyce Roe [facility] Start: 2017 End: 07-22-2017 Patient encounter procedure Joyce Roe MD Work Phone: [facility] Start: 2017 End: 07-22-2017 Periodic preventive med est patient 65yrs& older Joyce Roe [facility] Start: 07-06-2017 End: 07-06-2017 Phone Encounter Joyce Roe [facility] Start: 07-06-2017 End: 07-06-2017 Joyce Roe MD Work Phone: [facility] Start: 06-22-2017 End: 06-22-2017 Periodic preventive med est patient 18-39 yrs Joyce Roe [facility] Start: 03-18-2017 End: 03-18-2017 Periodic preventive med est patient 18-39 yrs Joyce Roe [facility] Start: 03-12-2017 End: 03-12-2017 Office outpatient visit 10 minutes Joyce Roe [facility] Start: 03-01-2017 End: 03-01-2017 Office outpatient visit 25 minutes Joyce Roe [facility] Start: 01-26-2017 End: 01-26-2017 Office outpatient visit 15 minutes Joyce Roe [facility] Start: 01-26-2017 End: 01-26-2017 Patient encounter procedure Joyce Roe MD Work Phone: [facility] Start: 08-27-2016 End: 09-01-2016 Office outpatient visit 10 minutes Joyce Roe [facility] Start: 08-27-2016 End: 08-27-2016 Office outpatient visit 40 minutes Joyce Roe [facility] Start: 08-27-2016 End: 08-27-2016 Patient encounter procedure Joyce Roe MD Work Phone: [facility] Start: 06-23-2016 End: 06-23-2016 Phone Encounter Joyce Roe [facility] Start: 06-23-2016 End: 06-23-2016 Joyce Roe MD Work Phone: [facility] Start: 06-18-2016 End: 06-18-2016 Lab Order Joyce Roe [facility] Start: 06-18-2016 End: 06-18-2016 Joyce Roe MD Work Phone: [facility] Start: 06-12-2016 End: 06-16-2016 Patient encounter procedure Joyce Roe MD Work Phone: [facility] Start: 06-12-2016 End: 06-16-2016 Periodic preventive med est patient 40-64yrs Joyce Roe [facility] Start: 08-14-2015 End: 08-15-2015 Office outpatient visit 25 minutes Joyce Roe [facility] Start: 06-26-2015 End: 06-26-2015 Office outpatient visit 5 minutes Joyce Roe [facility] Start: 06-07-2015 End: 06-07-2015 Periodic preventive med est patient 18-39 yrs Joyce Roe [facility] Start: 03-29-2015 End: 03-29-2015 Office outpatient visit 40 minutes Joyce Roe [facility] Start: 01-25-2015 End: 01-25-2015 Office outpatient visit 15 minutes Joyce Roe [facility] Start: 01-22-2015 End: 01-22-2015 Office outpatient visit 5 minutes Joyce Roe [facility] Start: 01-10-2015 End: 01-10-2015 Office outpatient visit 25 minutes Joyce Roe [facility] Start: 09-05-2014 End: 09-05-2014 Office outpatient visit 5 minutes Joyce Roe [facility] Start: 07-03-2014 End: 07-03-2014 Office outpatient visit 5 minutes Joyce Roe [facility] Start: 06-06-2014 End: 06-06-2014 Office outpatient visit 15 minutes Joyce Roe [facility] Start: 04-27-2014 End: 04-27-2014 Office outpatient visit 15 minutes Joyce Roe [facility] Start: 01-05-2014 End: 01-05-2014 Office outpatient visit 15 minutes Joyce Roe [facility] Start: 12-27-2013 End: 12-27-2013 Office outpatient visit 10 minutes Joyce Roe [facility] Start: 04-27-2013 End: 04-27-2013 Recovered Encounter Joyce Roe [facility] Start: 04-27-2013 End: 04-27-2013 Joyce Roe MD Work Phone: [facility] Start: 01-17-2013 End: 01-17-2013 Patient encounter Joyce Roe [facility] Start: 01-17-2013 End: 01-17-2013 Joyce Roe MD Work Phone: [facility] Start: 08-23-2012 End: 08-23-2012 Phone Encounter Joyce Roe [facility] Start: 08-23-2012 End: 08-23-2012 Joyce Roe MD Work Phone: [facility] Start: 07-26-2012 End: 07-26-2012 Phone Encounter Joyce Roe [facility] Start: 07-26-2012 End: 07-26-2012 Joyce Roe MD Work Phone: [facility] Start: 04-19-2012 End: 04-19-2012 Patient encounter Joyce Roe [facility] Start: 04-19-2012 End: 04-19-2012 Joyce Roe MD Work Phone: [facility] Start: 04-06-2012 End: 04-06-2012 Patient encounter Joyce Roe [facility] Start: 04-06-2012 End: 04-06-2012 Joyce Roe MD Work Phone: [facility] Start: 11-26-2011 End: 11-29-2011 Patient encounter Joyce Roe [facility] Start: 11-26-2011 End: 11-29-2011 Joyce Roe MD Work Phone: [facility] Start: 06-05-2011 End: 06-05-2011 Annotation/Addendum Joyce Roe [facility] Start: 06-05-2011 End: 06-05-2011 Joyce Roe MD Work Phone: [facility] Start: 05-04-2011 End: 05-04-2011 Phone Encounter Joyce Roe [facility] Start: 05-04-2011 End: 05-04-2011 Joyce Roe MD Work Phone: [facility] Start: 05-01-2011 End: 05-01-2011 Office outpatient visit 25 minutes Joyce Roe [facility] Start: 03-24-2011 End: 03-24-2011 Patient encounter Joyce Roe [facility] Start: 03-24-2011 End: 03-24-2011 Joyce Roe MD Work Phone: [facility] Start: 03-20-2011 End: 03-20-2011 Office outpatient visit 10 minutes Joyce Roe [facility] Start: 03-18-2011 End: 03-18-2011 Annotation/Addendum Joyce Roe [facility] Start: 03-18-2011 End: 03-18-2011 Joyce Roe MD Work Phone: [facility] Start: 03-18-2011 End: 03-18-2011 Office outpatient visit 25 minutes Joyce Roe [facility] Start: 01-05-2011 End: 01-05-2011 Patient encounter Joyce Roe [facility] Start: 01-05-2011 End: 01-05-2011 Joyce Roe MD Work Phone: [facility] Start: 12-17-2010 End: 12-17-2010 Office outpatient visit 25 minutes Joyce Roe [facility] Start: 06-10-2010 End: 06-10-2010 Patient encounter Joyce Roe [facility] Start: 06-10-2010 End: 06-10-2010 Joyce Roe MD Work Phone: [facility] Start: 05-27-2009 End: 05-27-2009 Office outpatient visit 15 minutes Joyce Roe [facility] Start: 05-15-2009 End: 05-15-2009 Office outpatient visit 25 minutes Joyce Roe [facility] Start: 05-01-2009 End: 05-01-2009 Office outpatient visit 25 minutes Joyce Roe [facility] Start: 03-15-2007 End: 03-15-2007 Patient encounter Joyce Roe [facility] Start: 03-15-2007 End: 03-15-2007 Joyce Roe MD Work Phone: [facility] Start: 01-28-2007 End: 01-28-2007 Patient encounter Joyce Roe [facility] Start: 01-28-2007 End: 01-28-2007 Joyce Roe MD Work Phone: [facility] Patient encounter procedure BARBER Lowery LPN [facility] Work Phone: Patient encounter procedure Joyce Roe MD Work Phone: [facility] Work Phone: Patient encounter procedure Ruth Castillo LPN [facility] Work Phone: Patient encounter procedure Joyce Roe MD Work Phone: [facility] Work Phone: Patient encounter procedure Joyce Roe MD Work Phone: [facility] Work Phone: Patient encounter procedure Ruth Castillo LPN [facility] Work Phone: Patient encounter procedure Ruth Castillo [employer] [facility] Work Phone: Patient encounter procedure Ruth Castillo [employer] [facility] Work Phone: End: 06-07-2020 Patient encounter status BARBER Lowery [employer] [facility] Work Phone: Patient encounter status Joyce Roe MD Work Phone: [facility] Work Phone: Patient encounter status Ruth Jonathan VACA N [facility] Work Phone: Patient encounter status Marianela Kevin VACAN [facility] Work Phone: Patient encounter status Joyce Roe MD Work Phone: [facility] Work Phone: Patient encounter status Chantelle Eliastriec [facility] Work Phone: Patient encounter status Chantelle Eliastrice [facility] Work Phone: Patient encounter status Tamera Sanchez MA [facility] Work Phone: Patient encounter status Ruth Castillo LIO N [facility]; [facility] Work Phone: Patient encounter status Ruthdrea Castillo LIO N [facility]; [facility] Work Phone: Patient encounter status Ruth Castillo LIO N [facility] Work Phone: Procedures Date Procedure Procedure Detail Performing Clinician Start: 03-16-2025 Mri brain brain stem w/o w/contrast material Ariane Tolentino APRN.CNP Work Phone: Start: 01-22-[address] Joyce Roe MD Work Phone: Start: 01-22-[address] Joyce Roe MD Work Phone: Start: 01-10-[address] Joyce Roe MD Work Phone: Start: 09-30-2024 Ecg routine ecg w/least 12 lds trcg only w/o i&r Leona Perkins PA-C Work Phone: Start: 07-20-2023 Dual energy X-ray absorptiometry Start: 07-16-2023 Screening mammography Start: 02-26-2023 End: 02-26-2023 Procedure Note: See Note; NOTES: [facility] [address] [place] [address] OFFICE VISIT Date of Service: 02/26/23 MR#: [id number] Acct: [id number] Name: PETER MARIEE Rep #: [id number] : 1935 Provider: Dr. Saúl Barney MD Age/Sex: 87/F Location: [facility] Status: Signed HPI HPI History of Present Illness Details: PETER MARIEE, is a 87 F who presents for a follow-up visit. She is a lady with a history of coronary artery disease status post coronary artery bypass surgery. She was seen by us last January when she was complaining of chest discomfort and underwent a cardiac catheterization which demonstrated a patent JOHN to the LAD, mild disease was noted in the right coronary artery and circumflex artery. The mid LAD was occluded the ejection fraction was normal. She had her medications adjusted and has done well since. She denies any chest pain or shortness of breath or paroxysmal nocturnal dyspnea or pedal edema no neck arm or jaw discomfort to suggest angina. Her physical exam today here is unremarkable. Intake Vital Signs 02/26/23 08:53 02/26/23 14:39 Height 5 ft 1 in 5 ft 1 in Weight: 132 lb BMI 24.9 BP 118/57 L Blood Pressure Location Lt brachial Position Sitting Respiration 16 Pulse 53 L Pulse Source Monitor Intake Visit Reasons: 1 Y FU Script Worker Required: No Accompanied by: Is patient in pain?: No Allergies No Known Allergies Allergy (Verified 02/26/23 14:34) Medications aspirin 81 mg tablet,delayed release 81 mg PO QDAY 01/24/18 [History Confirmed 02/26/23] calcium carbonate 500 mg calcium (1,250 mg) tablet (Calcium 500) 1,000 mg PO DAILY 01/09/20 [History Confirmed 02/26/23] folic acid 800 mcg tablet 0.8 mg PO DAILY 01/09/20 [History Confirmed 02/26/23] glucosamine-chondroitin 250 mg-200 mg tablet (Osteo Bi-Flex) 2 tab PO BID 01/09/20 [History Confirmed 02/26/23] omega 8-qxt-lgp-fish oil 1,000 mg (120 mg-180 mg) capsule (Fish Oil) 1,000 mg PO DAILY 01/09/20 [History Confirmed 02/26/23] omeprazole 20 mg capsule,delayed release 20 mg PO DAILY 01/09/20 [History Confirmed 02/26/23] vitamin B complex (B Complex-Vitamin B12 tablet) 1 tab PO DAILY 01/09/20 [History Confirmed 02/26/23] hydrocodone-acetaminophen 5-325mg 5mg-325mg 1 tab PO Q6H PRN PRN Pain 3 days #12 TABLETS 02/08/21 [Rx Confirmed 02/26/23] amlodipine 10 mg tablet 10 mg PO DAILY #90 tabs 02/26/23 [Rx Confirmed 02/26/23] atenolol 25 mg tablet 25 mg PO QDAY #90 tabs 02/26/23 [Rx Confirmed 02/26/23] rosuvastatin 20 mg tablet 20 mg PO DAILY 02/26/23 [History Confirmed 02/26/23] Ejection fraction %: 60 to 64 PFSH Medical History Atherosclerotic heart disease of [place] coronary artery without angina pectoris Back problem Essential (primary) hypertension Gallstones Generalized osteoarthrosis of multiple sites GERD (gastroesophageal reflux disease) Greater trochanteric bursitis of right hip HLD (hyperlipidemia) Osteopenia Trochanteric bursitis of right hip Surgical History 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) H/O left breast biopsy H/O: hysterectomy History of appendectomy History of coronary angioplasty (08/1999) History of left heart catheterization (01/22/20) History of ovarian cystectomy Hx of cholecystectomy Family History Mother Cancer Ovarian cancer Heart disease Breast cancer Hypertension Valvular heart disease Father Cancer throat cancer Asthma Sister Breast cancer Daughter Cancer Social History Smoking Status: Never smoker alcohol intake: current Alcohol type: wine ROS Const Const: Negative for fatigue, weakness, headache(s), frequent falls, difficulty sleeping or excessive sweating Eyes Eyes: Negative for loss of peripheral vision, transient loss of vision, blurry vision, double vision or tunnel vision ENT ENT: Positive for balance problems; Negative for headache(s), dizziness or Nosebleed/epistaxis Cardio Chest Pain: No Palpitations: No Edema: Bilateral (Occasionally, mild) Muscle aches with walking: None Resp Respiratory: Negative for SOB with activity, SOB at rest, SOB orthopnea SOB lying down, Cough or paroxysmal nocturnal dyspnea GI GI: Negative nausea, vomiting, heartburn or black,tarry stools : Negative for hematuria Musc Musc: Positive for balance problems; Negative for muscle aches/ myalgia, muscle weakness or joint pain Skin Skin: Negative non-healing lesions, rash or unusual bruising Neuro Neuro: Negative for dizziness, lightheadedness, near syncope, syncope, frequent falls, headache(s), weakness, blurry vision, double vision or lack of coordination Ho Hematologic/Lymphatic: Negative for easy bleeding or easy bruising Endo Endo: Negative for fatigue, excessive sweating or increased thirst/drinking Psych Psych: Negative for anxiety or depression Allergy Allergy/Immunology: Negative for hives and Negative for rash Cardiology Exam Const Appearance: cooperative, healthy appearing, no acute distress, well developed and well groomed Nutritional Appearance: average body habitus and well nourished Orientation: alert, awake and oriented x3 Head Head: normal to inspection, normocephalic and atraumatic Ears: hearing grossly normal bilaterally and external ears normal Nose: external nose normal, nares normal, nasal mucous membranes and turbinates normal, septum normal and no nasal discharge Face and Sinus: face symmetric Mouth: oral mucosae normal, tongue normal, oropharynx normal and moist mucous membranes Teeth and gingiva: dentition normal Throat: posterior oropharynx normal, tonsils normal and uvula midline Eyes General: appearance normal, both eyes and all related structures Eyelids: eyelids normal Conjunctivae: conjunctivae normal Pupils: PERRL, normal by confrontation and accommodation normal EOM: EOM intact bilaterally Neck Neck: normal visual inspection, trachea midline and no JVD JVD: +5 Carotids: normal carotid upstroke and bounding pulses Chest Chest inspection: normal inspection of the chest, symmetric chest movement and normal respiratory effort Auscultation: Bilateral: Clear to Auscultation Cardio Palpation: normal PMI Rate: regular rate Rhythm: regular rhythm Heart sounds: S1 normal, S2 normal and normal, physiologic split S2; Negative rub, gallop or murmur GI GI: normal to inspection, soft, no hepatosplenomegaly and bowel sounds present Neuro General: patient alert, patient awake, patient oriented x3, gait normal, moves all extremities and no focal sensory deficit Skin Skin: no rashes or lesions noted Extremities Pulses: Normal: Right Femoral Pulse, Left Femoral Pulse, Right Dorsalis Pedis Pulse, Left Dorsalis Pedis Pulse, Right Posterior Tibial Pulse, Left Posterior Tibial Pulse, Right Radial Pulse and Left Radial Pulse Lower Extremity Edema: None: Bilateral Musculoskel Musculoskeletal: No joint tenderness Psych Psychological: normal affect Supplemental Info Supplemental Information Labs: No Data to Display Diagnostics: Carotid Duplex Pulmonary: No Data to Display Past Visits: No Data to Display Assessment and Plan Assessment and Plan (1) H/O coronary artery bypass surgery: Status: Resolved Comment: CABG x1 JOHN-LAD 11/22/2013 Plan: She is status post coronary bypass surgery. My recommendation is to continue the current medical therapy without making any changes. (2) Essential (primary) hypertension: Status: Chronic Plan: Blood pressure appears to be under good control at this time and I would not make any changes with regard to this. (3) HLD (hyperlipidemia): Status: Chronic Qualifiers: Hyperlipidemia type: pure hypercholesterolemia Qualified Code(s): E78.00 - Pure hypercholesterolemia, unspecified; E78.0 - Pure hypercholesterolemia Plan: She tells me that her lipid profile is being followed through your outfit. We will continue to monitor her peripherally. Thank you for allow me to participate in her care. Medications: Refilled amlodipine 10 mg PO DAILY 90 tabs 4RF atenolol 25 mg PO QDAY 90 tabs 3RF Plan Details Additional Comments: Portions of this documentation were copied and pasted from previous office visit notes to provide a cohesive continuity of the history. The note has been reviewed, edited, and updated, as necessary. Follow Up: 1 Year (jkhr) Coding Level of Care Code Off vis,est,level 3 Diagnoses H/O coronary artery bypass surgery Z95.1 Essential (primary) hypertension I10 HLD (hyperlipidemia) E78.00; E78.0 Hyperlipidemia type: pure hypercholesterolemia Coding Level of Care Code Off vis,est,level 3 Diagnoses H/O coronary artery bypass surgery Z95.1 Essential (primary) hypertension I10 HLD (hyperlipidemia) E78.00; E78.0 Hyperlipidemia type: pure hypercholesterolemia 02/26/23 1510 <Electronically signed by Saúl Barney MD> Date Saúl Barney MD Cosigner Signature: Date (if applicable) CC: MD Joyce Haq MD Work Phone: Start: 01-14-2023 MRI of lumbar spine Start: 01-14-2023 MRI of thoracic spine Start: 01-14-2023 End: 01-15-2023 Procedure Note: See Note; NOTES: [facility] Imaging Services [address] [place] [id number] Spine Lumbar (Routine) MR#: [id number] Acct: [id number] Name: PETER MARIEE Rep #: [id number] : 1935 F 87 From: Eric Johnson PCP: Dr. Joyce Roe MD Status: [facility] Study: Spine Lumbar (Routine) Date of Exam: 01/14/23 Exam# [id number] Ordering Dr: Joyce Roe MD EXAM: MR LUMBAR SPINE WITHOUT INTRAVENOUS CONTRAST CLINICAL INDICATION: LOW BACK PAIN, DISC DEGEN TECHNIQUE: Multiplanar and multisequence MR images of the lumbar spine without intravenous contrast. COMPARISON: No relevant prior studies available. FINDINGS: VERTEBRAE: See below. SPINAL CORD: Unremarkable. Normal position and signal intensity of the conus medullaris. SOFT TISSUES: Unremarkable. DISCS/SPINAL CANAL/NEURAL FORAMINA: L1-L2: Central disc protrusion extending posteriorly 5 mm narrowing the dural sac to 9 mm. No lateral recess or foraminal stenosis. No nerve root impingement. L2-L3: Mild generalized disc bulge and disc space narrowing. No spinal canal, lateral recess, or foraminal stenosis. L3-L4: Mild disc space narrowing and generalized disc bulge. Mild bilateral facet arthropathy. No spinal canal, foraminal, or lateral recess stenosis. L4-L5: Disc space narrowing. Approximately 5 mm of anterior spondylolisthesis of L3 on L4. Mild generalized disc bulge. Moderate bilateral facet arthropathy and ligamentum flavum thickening. Dural sac is narrowed to 8 mm. Bilaterally the neural foramina are narrowed due to the spondylolisthesis and facet arthropathy. Possible impingement upon the L4 nerve roots in the neural foramina. Normal spinal canal and lateral recesses. L5-S1: Disc space narrowing. Mild generalized disc bulge moderate bilateral facet arthropathy with ligamentum flavum thickening.. Moderate left neural foraminal narrowing due to generalized disc bulge and facet arthropathy. Mild right neural foraminal narrowing due to generalized disc bulge and facet arthropathy. Normal spinal canal and lateral recesses. MRI/Spine Lumbar (Routine) IMPRESSION: 1. Bilateral neural foraminal stenosis L4-L5 due to the spondylolisthesis, generalized disc bulge, and facet arthropathy with ligamentum flavum thickening. Possible impingement upon the L4 nerve roots in the neural foramina. 2. Central disc protrusion at L1-L2 extending 5 mm posteriorly with narrowing of the dural sac to 9 mm consistent with mild spinal stenosis. No nerve root impingement identified. 3. Moderate left and mild right neural foraminal narrowing at L5-S1 due to generalized disc bulge and bilateral facet arthropathy with ligamentum flavum thickening. 4. Spondylosis L2-L3 and L3-L4 with mild generalized disc bulges and disc space narrowing. Electronically Signed: Eric Ansari MD at 18:50 EDT , CC: Dr. Joyce Roe MD Reheater: Signed Joyce Roe MD Work Phone: Start: 01-14-2023 End: 01-17-2023 Procedure Note: See Note; NOTES: [facility] Services [address] [place] [address] Spine Thoracic (Routine) MR#: [id number] Acct: [id number] Name: PETER MARIEE Rep #: [id number] : 1935 F 87 From: Sherin Oliver MD PCP: Dr. Joyce Roe MD Status: REG CLI Study: Spine Thoracic (Routine) Date of Exam: Exam# [id number] Ordering Dr: Joyce Roe MD STUDY: MRI THORACIC SPINE WITHOUT CONTRAST REASON FOR EXAM: Female, 87 years old patient with osteoarthritis and mid back pain. TECHNIQUE: Standardized fat and water weighted pulse sequences were obtained in the sagittal and axial planes. COMPARISON: None. FINDINGS: There is an increased kyphosis of the thoracic spine. There is no substantial scoliosis. T1-2, T2-3, T3-4, T4-5, T5-6, T6-7, T7-8, T8-9, T9-10, T10-11, T11-12: The thoracic vertebral bodies have generally normal height. There is narrowing of the T3-4, T5-6, T6-7, T7-8, and T8-9 discs. There is some irregularity inferior endplate of T5 which may represent Schmorl''s nodes. There is mild acquired central canal stenosis at T11-T12. Neural foramina are generally patent. Normal visualized thoracic cord. Normal conus medullaris that terminates at the T12-L1 level.. The soft tissue structures are unremarkable. MRI/Spine Thoracic (Routine) IMPRESSION: Multilevel degenerative changes without obvious cord or nerve impingement. Electronically Signed: Sherin Oliver MD at 4:29 EDT Reading Location ID and State: [address] [place] [address] , Service support , CC: Dr. Joyce Roe MD Reheater: Signed Joyce Roe MD Work Phone: Start: 07-15-2022 Screening mammography Start: 07-15-2022 End: 07-15-2022 Procedure Note: See Note; NOTES: [facility] Imaging Services [address] [place] [address] SCRN MAMM (CAD)W/LOTUS BILAT MR#: [id number] Acct: [id number] Name: PETER MARIEE Rep #: [id number] : 1935 F 86 From: Clayton silva MD PCP: Dr. Joyce Roe MD Status: REG CLI Study: SCRN MAMM (CAD)W/LOTUS BILAT Date of Exam: 05/28 Exam# [id number] Ordering Dr: Joyce Roe MD MAMMOGRAPHY - BILATERAL SCREENING REASON FOR EXAM: Female, 86 years old. Routine annual screening examination. PERTINENT HISTORY: Daughter with breast cancer. Sister with breast cancer. Mother with breast cancer. Aunt with breast cancer. Remote left excisional breast biopsy. TECHNIQUE: Digital bilateral breast lotus (3D mammographic acquisition) in the CC and MLO projections. 2-D mediolateral oblique (MLO) and craniocaudad (CC) views of both breasts were obtained. CAD: Full Field Digital Mammography with Computer Added Detection was performed. COMPARISON: Comparison is made with prior study dated 06/24/2021 and 01/16/2020. FINDINGS: Breast Composition: The breasts are extremely dense, which lowers the sensitivity of mammography. There are no dominant masses or suspicious calcifications. Stable focal area of distortion in the retroareolar region of the left breast in comparison with the prior excisional breast biopsy. No other significant abnormalities are identified. There has been no significant change since the prior study. BI/SCRN MAMM (CAD)W/LOTUS BILAT IMPRESSION: Stable bilateral screening mammogram. Yearly follow-up mammogram recommended. (A) ASSESSMENT CATEGORY: BIRADS Category 2: Benign. A letter regarding these results will be sent to the patient by the facility within 30 days. Approximately 10% of breast cancers are not detected by mammography. A normal mammogram should not delay biopsy of a clinically suspicious abnormality. [id number] Electronically Signed: Clayton De La Rosa MD at 13:45 EST Reading Location ID and State: [address] [place] [address] , Service support , CC: Dr. Joyce Roe MD Reheater: Signed Joyce Roe MD Work Phone: Start: 05-09-2022 MRI of lower extremity Start: 05-09-2022 End: 05-09-2022 Procedure Note: See Note; NOTES: [facility] Imaging Services [address] [place] [address] Lower Ext/No Jt/w/o MR#: [id number] Acct: [id number] Name: PETER MARIEE Rep #: [id number] : 1935 F 86 From: Gabriele Conde MD PCP: Dr. Joyce Roe MD Status: REG CLI Study: Lower Ext/No Jt/w/o Date of Exam: 05/09/22 Exam# [id number] Ordering Dr: Joyce Roe MD STUDY: MRI LEFT MIDFOOT REASON FOR EXAM: Female, 86 years old. FOOT PAIN STRESS FX TECHNIQUE: Standardized fat and water weighted pulse sequences were obtained in all 3 orthogonal planes. COMPARISON: X-ray 12/25/2021 FINDINGS: Normal talonavicular articulation. Normal calcaneocuboid articulation. Normal navicular-cuneiform articulations. Normal intercuneiform articulations. Normal first tarsometatarsal articulation. Normal Lisfranc ligament. Normal second and third tarsometatarsal articulations. Normal cuboid fourth and cuboid fifth tarsometatarsal articulation. Normal first through fifth metatarsi. Normal tibialis anterior tendon. Normal extensor hallucis longus tendon. Normal extensor digitorum longus tendons. Normal peroneus longus tendon and distal insertion. Normal peroneus brevis tendon and distal insertion. Normal intrinsic muscles of the mid and forefoot region. Normal extensor digitorum brevis muscle. Normal subcutis adipose space. MRI/Lower Ext/No Jt/w/o IMPRESSION: Normal MRI of the midfoot. Electronically Signed: Gabriele Conde MD at 13:22 EDT , CC: ALTHEA Decker; Dr. Joyce Roe MD Reheater: Signed Joyce Roe MD Work Phone: Start: 01-08-2022 End: 01-08-2022 Comments: See Note; NOTES: [facility] [address] [place] [address] OFFICE VISIT Date of Service: 01/08/22 MR#: [id number] Acct: [id number] Name: PETER MARIEE Rep #: [id number] : 1935 Provider: Dr. Saúl Barney MD Age/Sex: 86/F Location: [facility] [place] Status: Signed [facility] History of Present Illness Details: PETER MARIEE, is a 86 F who presents for a follow-up visit. She is a lady with a history of coronary artery disease status post coronary artery bypass surgery. She was seen by us last January when she was complaining of chest discomfort and underwent a cardiac catheterization which demonstrated a patent JOHN to the LAD, mild disease was noted in the right coronary artery and circumflex artery. The mid LAD was occluded the ejection fraction was normal. She had her medications adjusted and has done well since. She denies any chest pain or shortness of breath or paroxysmal nocturnal dyspnea or pedal edema no neck arm or jaw discomfort to suggest angina. Her physical exam today here is unremarkable. Intake Vital Signs 01/08/22 08:53 Height 5 ft 1 in Weight: 130 lb BMI 24.5 BP 118/61 Respiration 16 Pulse 54 L Pulse Oximetry (%) 98 Intake Visit Reasons: 1 Y FU Allergies No Known Allergies Allergy (Verified 01/08/22 08:54) Medications cholecalciferol (vitamin D3) 25 mcg (1,000 unit) tablet 1,000 unit PO QDAY 12/16/17 [History Confirmed 01/08/22] aspirin 81 mg tablet,delayed release 81 mg PO QDAY tab 01/24/18 [History Confirmed 01/08/22] calcium carbonate 500 mg calcium (1,250 mg) tablet 1,000 mg PO DAILY tab 01/09/20 [History Confirmed 01/08/22] folic acid 800 mcg tablet 0.8 mg PO DAILY 01/09/20 [History Confirmed 01/08/22] glucosamine-chondroitin 250 mg-200 mg tablet 2 tab PO BID tab 01/09/20 [History Confirmed 01/08/22] omega 9-mho-emt-fish oil 1,000 mg (120 mg-180 mg) capsule 1,000 mg PO DAILY cap 01/09/20 [History Confirmed 01/08/22] omeprazole 20 mg capsule,delayed release 20 mg PO DAILY cap 01/09/20 [History Confirmed 01/08/22] vitamin B complex 1 tab PO DAILY 01/09/20 [History Confirmed 01/08/22] simvastatin 20 mg tablet 20 mg PO QAM #90 tab 01/07/21 [Rx Confirmed 01/08/22] hydrocodone-acetaminophen 1 tab PO Q6H PRN PRN 3 Days #12 tablet 02/08/21 [Rx Confirmed 01/08/22] naproxen 500 mg PO BID #20 tab 06/05/21 [Rx Confirmed 01/08/22] amlodipine 10 mg tablet 10 mg PO DAILY #90 tab 01/08/22 [Rx Confirmed 01/08/22] atenolol 25 mg tablet 25 mg PO QDAY #90 tab 01/08/22 [Rx Confirmed 01/08/22] turmeric 400 mg capsule 400 mg PO DAILY cap 01/08/22 [History Confirmed 01/08/22] PFSH Medical History Atherosclerotic heart disease of [place] coronary artery without angina pectoris Back problem Essential (primary) hypertension Gallstones Generalized osteoarthrosis of multiple sites GERD (gastroesophageal reflux disease) Greater trochanteric bursitis of right hip HLD (hyperlipidemia) Osteopenia Trochanteric bursitis of right hip Surgical History 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) H/O left breast biopsy H/O: hysterectomy History of appendectomy History of coronary angioplasty (08/1999) History of left heart catheterization (01/22/20) History of ovarian cystectomy Hx of cholecystectomy Family History Mother Cancer Ovarian cancer Heart disease Breast cancer Hypertension Valvular heart disease Father Cancer throat cancer Asthma Sister Breast cancer Daughter Cancer Social History Smoking Status: Never smoker alcohol intake: current Alcohol type: wine ROS Const Const: Negative for fatigue, weakness, headache(s), frequent falls, difficulty sleeping or excessive sweating Eyes Eyes: Negative for loss of peripheral vision, transient loss of vision, blurry vision, double vision or tunnel vision ENT ENT: Negative for headache(s), dizziness, Nosebleed/epistaxis or balance problems Cardio Chest Pain: No Palpitations: No Edema: None Muscle aches with walking: None Resp Respiratory: Negative for SOB with activity, SOB at rest, SOB orthopnea SOB lying down, Cough or paroxysmal nocturnal dyspnea GI GI: Negative nausea, vomiting, heartburn or black,tarry stools : Negative for hematuria Musc Musc: Negative for muscle aches/ myalgia, muscle weakness, joint pain or balance problems Skin Skin: Negative non-healing lesions, rash or unusual bruising Neuro Neuro: Negative for dizziness, lightheadedness, near syncope, syncope, orthostatic symptoms, frequent falls, headache(s), weakness, blurry vision, double vision or lack of coordination Ho Hematologic/Lymphatic: Negative for easy bleeding or easy bruising Endo Endo: Negative for fatigue, excessive sweating or increased thirst/drinking Psych Psych: Negative for anxiety or depression Allergy Allergy/Immunology: Negative for hives and Negative for rash Cardiology Exam Const Appearance: cooperative, healthy appearing, no acute distress, well developed and well groomed Nutritional Appearance: average body habitus and well nourished Orientation: alert, awake and oriented x3 Head Head: normal to inspection, normocephalic and atraumatic Ears: hearing grossly normal bilaterally and external ears normal Nose: external nose normal, nares normal, nasal mucous membranes and turbinates normal, septum normal and no nasal discharge Face and Sinus: face symmetric Mouth: oral mucosae normal, tongue normal, oropharynx normal and moist mucous membranes Teeth and gingiva: dentition normal Throat: posterior oropharynx normal, tonsils normal and uvula midline Eyes General: appearance normal, both eyes and all related structures Eyelids: eyelids normal Conjunctivae: conjunctivae normal Pupils: PERRL, normal by confrontation and accommodation normal EOM: EOM intact bilaterally Neck Neck: normal visual inspection, trachea midline and no JVD JVD: +5 Carotids: normal carotid upstroke and bounding pulses Chest Chest inspection: normal inspection of the chest, symmetric chest movement and normal respiratory effort Auscultation: Bilateral: Clear to Auscultation Cardio Palpation: normal PMI Rate: regular rate Rhythm: regular rhythm Heart sounds: S1 normal, S2 normal and normal, physiologic split S2; Negative rub, gallop or murmur GI GI: normal to inspection, soft, no hepatosplenomegaly and bowel sounds present Neuro General: patient alert, patient awake, patient oriented x3, gait normal, moves all extremities and no focal sensory deficit Skin Skin: no rashes or lesions noted Extremities Pulses: Normal: Right Femoral Pulse, Left Femoral Pulse, Right Dorsalis Pedis Pulse, Left Dorsalis Pedis Pulse, Right Posterior Tibial Pulse, Left Posterior Tibial Pulse, Right Radial Pulse and Left Radial Pulse Lower Extremity Edema: None: Bilateral Musculoskel Musculoskeletal: No joint tenderness Psych Psychological: normal affect Supplemental Info Supplemental Information CARDIAC CATHETERIZATION 01/22/2020 CORONARY ANGIOGRAPHY DOMINANCE: Co- Dominant LEFT HEART ASSESSMENT Left Ventricular Ejection Fraction: by LV Gram 60 % Normal LV wall motion Normal Left Ventricular systolic function LEFT MAIN: Mild calcification LEFT ANTERIOR DESCENDING ARTERY: MID LAD: is occluded CIRCUMFLEX ARTERY: MID CIRC: Moderate luminal irregularities up to 50% RIGHT CORONARY ARTERY: Mild luminal irregularities less than 30% GRAFTS: JOHN graft to the Mid LAD is patent Carotid u/s 06/23/2021 Interpretation Summary Minimal smooth plaque at the proximal right internal carotid artery with less than 50% stenosis. Less than 50% stenosis right external carotid artery Irregular calcific plaque of the proximal left internal carotid artery with less than 50% stenosis . Less than 50% stenosis of left external carotid artery Patent antegrade vertebral arteries bilaterally No change from the previous examination of January 14-2020 Labs: No Data to Display Diagnostics: No Data to Display Pulmonary: No Data to Display Assessment and Plan Assessment and Plan (1) H/O coronary artery bypass surgery: Status: Resolved Comment: CABG x1 JOHN-LAD 11/22/2013 Plan - Dr. Saúl Barney MD: She is status post coronary bypass surgery. My recommendation is to continue the current medical therapy without making any changes. (2) Essential (primary) hypertension: Status: Chronic Plan - Dr. Saúl Barney MD: Blood pressure appears to be under good control at this time and I would not make any changes with regard to this. (3) HLD (hyperlipidemia): Status: Chronic Qualifiers: Hyperlipidemia type: pure hypercholesterolemia Qualified Code(s): E78.00 - Pure hypercholesterolemia, unspecified; E78.0 - Pure hypercholesterolemia Plan - Dr. Saúl Barney MD: She tells me that her lipid profile is being followed through your outfit. We will continue to monitor her peripherally. Thank you for allow me to participate in her care. Plan Details Other Medications: Refilled: amlodipine 10 mg PO DAILY 90 tabs 4RF atenolol 25 mg PO QDAY 90 tabs 3RF Additional Comments: Portions of this documentation were copied and pasted from previous office visit notes to provide a cohesive continuity of the history. The note has been reviewed, edited, and updated, as necessary. 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) Coding Level of Care Code Off vis,est,level 3 Diagnoses H/O coronary artery bypass surgery Z95.1 Essential (primary) hypertension I10 HLD (hyperlipidemia) E78.00; E78.0 Hyperlipidemia type: pure hypercholesterolemia Coding Level of Care Code Off vis,est,level 3 Diagnoses H/O coronary artery bypass surgery Z95.1 Essential (primary) hypertension I10 HLD (hyperlipidemia) E78.00; E78.0 Hyperlipidemia type: pure hypercholesterolemia 01/08/22 1020 <Electronically signed by Saúl Barney MD> Date Saúl Barney MD Cosigner Signature: Date (if applicable) CC: MD Joyce Haq MD Work Phone: Start: 12-25-2021 X-ray of both feet Start: 12-25-2021 End: 12-25-2021 Comments: See Note; NOTES: [facility] Imaging Services [address] [place] [address] Foot min 3 Views MR#: [id number] Acct: [id number] Name: PETER MARIEE Rep #: [id number] : 1935 F 86 From: Gigi Iglesias DO PCP: Dr. Joyce Roe MD Status: REG CLI Study: Foot min 3 Views Date of Exam: 12/25/21 Exam# [id number] Ordering Dr: Joyce Roe MD STUDY: X-RAY - LEFT FOOT CLINICAL: Female, 86 years old. The fifth metatarsal pain. TECHNIQUE: 3 view(s) of the foot. COMPARISON: Left ankle, 12/25/2021 FINDINGS: Normal talus, calcaneus, and tarsal bones. Normal visualized subtalar, talonavicular, calcaneocuboid, tarsal and tarsometatarsal articulations. Normal metatarsi. Normal metatarsophalangeal joint of the great toe. Normal tibial and fibular sesamoid bones. Normal interphalangeal joint of the great toe. Normal phalanges of the great toe. Normal second through fifth metatarsophalangeal joints. Normal interphalangeal joints and phalanges of the lesser toes. The soft tissue structures are unremarkable. RAD/Foot min 3 Views IMPRESSION: No visualized fracture or dislocation. Electronically Signed: Gigi Iglesias DO at 23:54 EDT Reading Location ID and State: [address] [place] [address] Tel [phone], Service support , CC: Dr. Joyce Roe MD Reheater: Signed Joyce Roe MD Work Phone: Start: 12-25-2021 Radiography of ankle Start: 12-25-2021 End: 12-25-2021 Comments: See Note; NOTES: [facility] Services [address] [place] [address] Ankle min 3 Views MR#: [id number] Acct: [id number] Name: PETER MRAIEE Rep #: [id number] : 1935 F 86 From: Gigi Iglesias DO PCP: Dr. Joyce Roe MD Status: REG CLI Study: Ankle min 3 Views Date of Exam: 12/25/21 Exam# [id number] Ordering Dr: Joyce Roe MD STUDY: X-RAY - LEFT ANKLE REASON FOR EXAM: Female, 86 years old. Acute pain. TECHNIQUE: 3 view(s) of the ankle. COMPARISON: 08/14/2015. FINDINGS: Normal visualized distal tibia and fibula. Normal medial and lateral malleoli. Normal tibiotalar articulation and ankle mortise. Normal visualized talus and calcaneus. The visualized subtalar, talonavicular, calcaneocuboid and tarsal articulations are normal. The soft tissue structures are unremarkable. RAD/Ankle min 3 Views IMPRESSION: No fracture or dislocation. Electronically Signed: Gigi Iglesias DO at 23:54 EDT , CC: Dr. Joyce Roe MD Reheater: Signed Joyce Roe MD Work Phone: Start: 06-24-2021 End: 06-27-2021 Comments: See Note; NOTES: [facility] Imaging Services [address] [place] [address] SCRN MAMM (CAD)W/LOTUS BILAT MR#: [id number] Acct: [id number] Name: PETER MARIEE Rep #: [id number] : 1935 F 85 From: Clayton silva MD PCP: Dr. Joyce Roe MD Status: [facility] Study: SCRN MAMM (CAD)W/LOTUS BILAT Date of Exam: 06/06 05/27 Exam# [id number] Ordering Dr: Joyce Roe MD MAMMOGRAPHY - BILATERAL SCREENING REASON FOR EXAM: Female, 85 years old. Routine annual screening examination. PERTINENT HISTORY: Daughter with breast cancer. History of prior left excisional breast biopsy. Sister with breast cancer. Mother with breast cancer. Aunt with breast cancer. TECHNIQUE: Digital bilateral breast lotus (3D mammographic acquisition) in the CC and MLO projections. 2-D mediolateral oblique (MLO) and craniocaudad (CC) views of both breasts were obtained. CAD: Full Field Digital Mammography with Computer Added Detection was performed. COMPARISON: Comparison is made with prior study dated 01/16/2020 and 12/20/2018. FINDINGS: Breast Composition: The breasts are heterogeneously dense, which may obscure small masses. There are no dominant masses or suspicious calcifications. Stable focal area of architectural distortion in the retroareolar region of the left breast a complex history of prior left excisional breast biopsy. No other significant abnormalities are identified. There has been no significant change since the prior study. BI/SCRN MAMM (CAD)W/LOTUS BILAT IMPRESSION: Stable bilateral screening mammogram. Yearly follow-up mammogram recommended. (A) ASSESSMENT CATEGORY: BIRADS Category 2: Benign. A letter regarding these results will be sent to the patient by the facility within 30 days. Approximately 10% of breast cancers are not detected by mammography. A normal mammogram should not delay biopsy of a clinically suspicious abnormality. [id number] Electronically Signed: Clayton De La Rosa MD at 10:07 EDT , Service support , CC: Dr. Joyce Roe MD Reheater: Signed Joyce Roe MD Work Phone: Start: 06-24-2021 End: 06-27-2021 Comments: See Note; NOTES: [facility] Imaging Services [address] [place] [address] Dexa Bone Density Study MR#: [id number] Acct: [id number] Name: PETER MARIEE Rep #: [id number] : 1935 F 85 From: Clayton silva MD PCP: Dr. Joyce Roe MD Status: [facility] CLI Study: Dexa Bone Density Study Date of Exam: 06/24/21 Exam# [id number] Ordering Dr: Joyce Roe MD STUDY: DUAL ENERGY X-RAY ABSORPTIOMETRY / DXA REASON FOR EXAM: Female, 85 years old. M85.89. The patient is postmenopausal. TECHNIQUE: Bone Mineral Density (BMD) measurements of lumbar spine and bilateral hips were obtained. COMPARISON: Comparison is made with prior study dated 12/20/2018 and 09/01/2016. FINDINGS: Lumbar Spine (L1-L4): g/cm2 (0.779) / T-score (-1.8) / Z-score (0.8) Findings are suggestive of osteopenia with a moderate fracture risk. Left Femur Total: g/cm2 (0.772) / T-score (-1.4) / Z-score (0.9) Left Femoral Neck: g/cm2 (0.642) / T-score (-1.9) / Z-score (0.6) Right Femur Total: g/cm2 (0.749) / T-score (-1.6) / Z-score (0.7) Right Femoral Neck: g/cm2 (0.652) / T-score (-1.8) / Z-score (0.7) The T-Scores on the most recent prior examination were: Lumbar Spine (L1-L4): There has been worsening of bone density since the previous examination. Left Femur Total: which represents a worsening of 6.8%. Right Femur Total: which represents a worsening of 8.6%. BD/Dexa Bone Density Study IMPRESSION: The patient is considered osteopenic as outlined below according to World Bruno Organization (WHO) criteria with a moderate fracture risk. There has been worsening of bone density since the previous examination. Reference Information: The T-score is the number of standard deviations above or below the standard which is normal for young adults at their peak bone mineral density. The World Health Organization (WHO) interprets the T-scores as follows: Above -1 Normal bone density Between -1 and -2.5 Osteopenia Equal to / or below -2.5 Osteoporosis As a practical clinical guideline, osteopenia may be graded as follows: Mild -1 through -1.5 Moderate -1.6 through -2.0 Severe -2.1 through -2.4 The Z-score is the number of standard deviations above or below age-matched controls. A Z-score of less than -1.5 would be considered abnormal. References: 1. NIH Osteoporosis and Related Bone Diseases www osteo.org 2. International Society for Clinical Densitometry www iscd.org 3. National Osteoporosis Foundation www nof.org Electronically Signed: Clayton De La Rosa MD at 13:25 EDT , Service support , CC: Dr. Joyce Roe MD Reheater: Signed Joyce Roe MD Work Phone: Start: 06-23-2021 End: 06-27-2021 Comments: See Note; NOTES: [facility] [address] [facility] [place] [address] Carotid Duplex Ultrasound 06/23/21 1017 MR#: [id number] Acct: [id number] Name: PETER MARIEE Rep #: [id number] : 1935 85 From: Sonido Briggs MD Attending Dr: Dr. Joyce Roe MD Status: REG CLI Ordering Dr: Joyce Roe MD Date: 06/23/21 Location: [facility] Sex: F C Admitted: Reason For Study: occlusion and stenosis of left carotid artery Rt. Velocities/BP Lt. Velocities/BP Prox CCA 68.2/12.1 cm/sec. Prox CCA 79.4/13.5 cm/sec. Mid CCA 70.8/12.1 cm/sec. Mid CCA 77.2/15.7 cm/sec. Dist CCA 63.0/12.1 cm/sec. Dist CCA 54.1/10.2 cm/sec. Prox ICA 52.6/13.4 cm/sec. Prox ICA 55.2/12.4 cm/sec. Mid ICA 68.2/13.4 cm/sec. Mid ICA 60.7/15.7 cm/sec. Dist ICA 61.7/12.7 cm/sec. Dist ICA 65.2/15.6 cm/sec. Rt. ICA/CCA = 1.0. Lt. ICA/CCA = .8. Prox ECA 86.5/4.3 cm/sec. Prox ECA 86.0/4.7 cm/sec. Rt. Vert. 37.7/8.0 cm/sec. Lt. Vert. 46.5/10.2 cm/sec. Right Extracranial There is intimal thickening but no significant atherosclerotic plaque noted in the right common carotid artery. There is heterogeneous, smooth atherosclerotic plaque noted in the right internal carotid artery. There is intimal thickening but no significant atherosclerotic plaque noted in the right external carotid artery. Antegrade flow is noted in the right vertebral artery. Left Extracranial There is intimal thickening but no significant atherosclerotic plaque noted in the left common carotid artery. There is heterogeneous, irregular atherosclerotic plaque noted in the left internal carotid artery. There is homogeneous, smooth atherosclerotic plaque noted in the left external carotid artery. Antegrade flow is noted in the left vertebral artery. Procedure Carotid Duplex 59091. This is a Carotid Duplex examination using B-mode, color flow and specral Doppler. The exam was diagnostic. Exam performed in department. VL/Carotid Duplex Ultrasound Interpretation Summary Minimal smooth plaque at the proximal right internal carotid artery with less than 50% stenosis. Less than 50% stenosis right external carotid artery Irregular calcific plaque of the proximal left internal carotid artery with less than 50% stenosis . Less than 50% stenosis of left external carotid artery Patent antegrade vertebral arteries bilaterally No change from the previous examination of January 14 _ Ordering Physician: Joyce Roe Referring Physician: Joyce Roe Performed By: Misbah Gilliam RVT 06/23/21 1341 Date Sonido Briggs MD CC: Dr. Joyce Roe MD Date Dictated: 06/23/21 1017 Date Transcribed: 06/23/21 134 Reheater: Signed Joyce Roe MD Work Phone: Start: 06-17-2021 End: 06-17-2021 Comments: See Note; NOTES: [facility] Radiology [address] [place] [address] Lumbar Spine 2 or 3 Views MR#: [id number] Acct: [id number] Name: PETER MARIEE Rep #: [id number] : 1935 F 85 From: Eric Law DO PCP: Dr. Joyce Roe MD Status: DEP AMB Study: Lumbar Spine 2 or 3 Views Date of Exam: Exam# [id number] Ordering Dr: Joyce Roe MD INDICATION: PAIN EXAMINATION/TECHNIQUE: X-RAY - XR Spine Lumbar 2 or 3 Views COMPARISON: 03/29/2015 lumbar spine x-rays FINDINGS: There is mild straightening of the lumbar lordosis. No abnormal lateral curvature. There is mild anterolisthesis of L4 relative to L5, exaggerated appearance due to slight obliquity. This is likely not significant changed compared to prior exam. There is however increased facet arthropathy at L3-4, L4-5 and L5-S1 and decreased intervertebral disc height at L4-5 and L5-S1. No fracture or focal osseous lesion. Degenerative intimal calcifications abdominal aorta. Degenerative changes bilateral sacroiliac joints. Soft tissue surgical clips right upper quadrant from cholecystectomy. RAD/Lumbar Spine 2 or 3 Views IMPRESSION: Worsening degenerative disc disease and degenerative endplate changes and facet arthropathy lower lumbar spine. Electronically Signed: Eric Law, DO at 23:30 EDT Tel , Service support , CC: Dr. Joyce Roe MD Reheater: Signed Joyce Roe MD Work Phone: Start: 05-08-2021 End: 05-08-2021 Comments: See Note; NOTES: [facility] [address] [place] [address] / REEVALUATION / MEDICARE RECERTIFICATION PHYSICAL THERAPY MR#: [id number] Acct: [id number] Name: PETER MARIEE Rep #: [id number] : 1935 85 From: Manuela Alvarado PT, Cert. MDT Referring Dr.: Dr. Joyce Roe MD Status:REG RCR Insurance: MEDICARE PART A B [employer] Dr. Joyce Roe MD, It has been my pleasure to treat PETER MARIEE over the last 9 visits for Bilateral Hip Pain. Please see the progress note below for an update on the physical therapy plan of care! Subjective: "I'M FINE DURING THE DAY BUT NOT SOME NIGHTS". SOME NIGHTS ARE BETTER THAN OTHERS. PATIENT REPORTS THE US REALLY HELPED LAST VISIT. PATIENT REPORTS LESS PAIN AT NIGHT AND SLEEPING BETTER. PATIENT ALSO REPORTS HER BACK/CORE FEEL STRONGER AND SHE CAN GET COMFORTABLE MORE EASILY LYING ON HER BACK NOW. PATIENT REPORTS SHE LIKES THE EX'S. PATIENT REPORTS SHE FEELS LIKE SHE HAS ENOUGH EX'S FOR NOW AND IS GOING TO FOLLOW UP WITH Nathan ROE TOMORROW. Objective/Function: PATIENT WAS SEEN TODAY FOR RE-ASSESSMENT OF PROGRESS TOWARD THE SET PT GOALS AND THE NEED FOR FURTHER PHYSICAL THERAPY VS READINESS FOR DISCHARGE. UPON EXAM TODAY: ALL GOALS HAVE BEEN MET BUT PATIENT IS STILL GETTING LOW BACK AND NELLY HIP PAIN MAINLY AT NIGHT. SHE RECENTLY REPORTED UP TO 7/10 PAIN AT NIGHT. Plan Plan: PHYSICIAN RE-CHECK. Balance/Gait/Functional tests - Balance/Special Test Scores Lower Extremity Functional Score: 69 Goals Goal 1:: Patient will be I with HEP and progression Goal Time Frame: 4-6 Weeks Goal Progress: Goal Met Goal 2:: Patient will report no hip pain for 1 week Goal Time Frame: 4-6 Weeks Goal Progress: Progressing Goal 3:: Patient will maintain proper posture t/o tx session to demo increased core s/s Goal Time Frame: 4-6 Weeks Goal Progress: Progressing Anticipated Interventions Patient/Client Instruction: Educate patient on: Benefits of Fitness Program Therapeutic Exercise to Include: Strength training, Endurance training, Agility training, Body mechanics, Postural training, Flexibilty training, Gait and locomotor training, Neuromotor development, Dynamic Lumbar Stabilization, Scapular Strength/Stabilization For the Purpose of:: To improve muscle performance and motor function TENS: Yes Cryotherapy (ice pack, ice massage): Yes Thermo therapy (hot pack): Yes Ultrasound (thermal/non thermal): Yes Please do not hesitate to contact me at [phone] by phone or if you have questions or concerns regarding this new plan of care! Sincerely, Manuela Alvarado PT, Cert MDT <Electronically signed by Manuela Alvarado PT Cert. MDT> 05/08/21 1513 CC: Dr. Joyce Roe MD PAUL Signed For Medicare only, by signing this I certify the plan of care. Physicians Signature Date Joyce Roe MD Work Phone: Start: 04-10-2021 End: 04-10-2021 Comments: See Note; NOTES: [facility] [address] [place] [address]. [address] [place] [address] / REHABILITATION SERVICES INITIAL EVALUATION MR#: [id number] Acct: [id number] Name: PETER MARIEE Rep #: [id number] : 1935 85 From: Sharyn Vo DPT Referring Dr.: Dr. Joyce Roe MD Status: REG RCR Insurance: MEDICARE PART A B [employer] Patient's Visit Information PETER MARIEE is a 85 year old F referred to Physical Therapy by Dr. Joyce Roe MD with a diagnosis of Bilateral Hip Pain. Date of Evaluation: 04/10/21 Physical Therapist: Sharyn Vo DPT - Visit Plan Frequency: 2x /Week Duration: 4 Weeks Plan: Focus on LE and core strength/stabilization. HEP Given IE: TA Contraction, Bridge, Hip Add, Hip Abd GTB, Postural education - Subjective Patient reports that she goes to [place] in the winter- walks 30-45 minutes a day- does exercises at - [employer]- continued to walk but did not return to the gym right away. When the restrictions were lifted- she walked the and did two classes- Wednesday could not walk due to the right hip- had to be taken to the ED. Took an x-rays and diagnosed with bursitis on February 08. They gave her two injection and sent her home with ice and medication. This helped but wasn't a ton better- saw Dr. Roe who gave her a cortisone injection. As she has continued to work through this she has started to have pain in the left hip. They go back to [place] in June. She had a pelvic ultrasound last week which was normal. Still having pain in bilateral hips right is worse than left. Pain is located along the lateral aspect of the hip- pain radiates to the knee- and has been getting vasyl horses in the calf but they subsiding. Describes the pain as more dull and achy. She has back pain- knows she has degeneration. Worst:5/10 Agg: laying down at night. Eases: Tylenol, ice Best: 0/10. Sleep: disturbed- wakes her up- painful when she lays on both sides. Does have N/T but its not new in bilateral LE right>left. Did have x-rays or the hip but not of the lumbar spine. No MRI. PMHx/Meds: see scanned in. - Objective Posture: FH, RS can correct with verbal and tactile cues but does not maintain. Gait: slight pelvic translation. Stair: asc/desc 8" recip with 1 HR- mild pelvic translation. HR/TR: able with UE A. SLS: weight shift but unable to SLS without A from UE. ROM: WFL in all planes of the lumbar spine, Hip: diminished IR by 50% with pain. Strength: Core: fair minus, Hip: 4/5 flexion/ext/abd 4-/5 IR/ER with discomfort. Flex: HS: moderate, Gastroc: moderate. Palpation: tender along greater troch into the gluts and paraspinals of the lumber spine. Special Test: LLD: negative, Squish Test: positive, Scour: positive, OLIVIER: positive - Goals Goal 1:: Patient will be I with HEP and progression Goal Time Frame: 4-6 Weeks Goal 2:: Patient will report no hip pain for 1 week Goal Time Frame: 4-6 Weeks Goal 3:: Patient will maintain proper posture t/o tx session to demo increased core s/s Goal Time Frame: 4-6 Weeks - Rehabilitation Potential Physical Therapy Diagnosis: Patient presents with hypomobility- she has decreased painfree ROM, LE and core strength/stabilization and muscular endurance leading to poor posture and increased pain with ADL's. Rehabilitation Potential: Fair - Anticipated Interventions Patient/Client Instruction: Educate patient on: Benefits of Fitness Program Therapeutic Exercise to Include: Strength training, Endurance training, Agility training, Body mechanics, Postural training, Flexibilty training, Gait and locomotor training, Neuromotor development, Dynamic Lumbar Stabilization, Scapular Strength/Stabilization For the Purpose of:: To improve muscle performance and motor function TENS: Yes Cryotherapy (ice pack, ice massage): Yes Thermo therapy (hot pack): Yes Ultrasound (thermal/non thermal): Yes Thank you for the opportunity to evaluate your patient. For Medicare and Medicare HMO plans, please review the plan of care and approve it. It will need to be FAXED BACK to us at [phone] for Medicare purposes. For Medicare only, by signing this I certify the plan of care. Please let me know if there are questions or concerns regarding this plan of care. Physician Signature: ___Date: <Electronically signed by Sharyn Vo DPT> 04/10/21 1145 CC: Dr. Joyce Roe MD ELR Signed Joyce Roe MD Work Phone: Start: 04-07-2021 End: 04-07-2021 Comments: See Note; NOTES: [facility] Imaging Services [address] [place] [address] Pelvic (Non ) MR#: [id number] Acct: [id number] Name: PETER MARIEE Rep #: [id number] : 1935 F 85 From: Khadar Castillo MD PCP: Dr. Joyce Roe MD Status: REG CLI Study: Pelvic (Non ) Date of Exam: 04/07/21 Exam# [id number] Ordering Dr: Joyce Roe MD STUDY: ULTRASOUND OF THE FEMALE PELVIS - LIMITED REASON FOR EXAM: Female, 85 years old pelvic fullness, history of hysterectomy TECHNIQUE: Transabdominal TECHNICAL QUALITY: Adequate. COMPARISON: None. FINDINGS: The uterus is surgically absent. The right ovary is not visualized. There is no visualized right adnexal mass or complex lesion. The left ovary is not visualized. There is no visualized left adnexal mass or complex lesion. There is no fluid in the cul-de-sac. US/Pelvic (Non ) IMPRESSION: 1. Hysterectomy and nonvisualized ovaries. No substantial change since 06/18/2016. No demonstrated pelvic mass or acute abnormality. Electronically Signed: Khadar Castillo MD ([place]) at 9:55 EDT , Service support , CC: Dr. Joyce Roe MD Reheater: Signed Joyce Roe MD Work Phone: Start: 02-08-2021 End: 02-08-2021 Comments: See Note; NOTES: [facility] Medical Records Department [address] [place] [address] Emergency Department Summary 02/08/21 MR#: [id number] Acct: [id number] Name: PETER MARIEE Rep #: [id number] : 1935 85 From: Jasper Hernandez DO PCP: Dr. Joyce Roe MD Status:REG ER Location: ED HPI History of Present Illness Chief Complaint: Lower Extremity Injury Informant: patient Narrative Narrative: 85-year-old female states that on she was doing a lot of yard work. She started doing the yard work she began to have a slight discomfort in her hip. This pain is progressively worsened throughout the week and last night began to feel that she could not walk. She has tried some anti-inflammatories and Tylenol. She took a Flexeril last night. She notes focal tenderness just posterior to her greater trochanter. She notes pain with movement. [facility] Medical History Atherosclerotic heart disease of [place] coronary artery without angina pectoris Back problem Essential (primary) hypertension Gallstones Generalized osteoarthrosis of multiple sites GERD (gastroesophageal reflux disease) HLD (hyperlipidemia) Osteopenia Home Medications cholecalciferol (vitamin D3) 25 mcg (1,000 unit) tablet 1,000 unit PO QDAY 12/16/17 [History Last Taken Unknown] aspirin 81 mg tablet,delayed release 81 mg PO QDAY tab 01/24/18 [History Last Taken 01/22/20] calcium carbonate 500 mg calcium (1,250 mg) tablet 1,000 mg PO DAILY tab 01/09/20 [History Last Taken Unknown] folic acid 800 mcg tablet 0.8 mg PO DAILY 01/09/20 [History Last Taken Unknown] glucosamine-chondroitin 250 mg-200 mg tablet 2 tab PO BID tab 01/09/20 [History Last Taken Unknown] omega 4-juj-quf-fish oil 1,000 mg (120 mg-180 mg) capsule 1,000 mg PO DAILY cap 01/09/20 [History Last Taken Unknown] omeprazole 20 mg capsule,delayed release 20 mg PO DAILY cap 01/09/20 [History Last Taken Unknown] vitamin B complex 1 tab PO DAILY 01/09/20 [History Last Taken Unknown] amlodipine 10 mg tablet 10 mg PO DAILY #90 tab 01/07/21 [Rx Last Taken Unknown] atenolol 25 mg tablet 25 mg PO QDAY #90 tab 01/07/21 [Rx Last Taken Unknown] simvastatin 20 mg tablet 20 mg PO QAM #90 tab 01/07/21 [Rx Last Taken Unknown] hydrocodone-acetaminophen 1 tab PO Q6H PRN PRN 3 Days #12 tablet 02/08/21 [Rx Last Taken Unknown] naproxen 500 mg PO BID #20 tab 02/08/21 [Rx Last Taken Unknown] Allergy/AdvReac Type Severity Reaction Status Date / Time No Known Allergies Allergy Verified 02/08/21 05:52 Family History Mother Cancer Ovarian cancer Heart disease Breast cancer Hypertension Valvular heart disease Father Cancer throat cancer Asthma Sister Breast cancer Daughter Cancer Surgical History 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) H/O left breast biopsy H/O: hysterectomy History of appendectomy History of coronary angioplasty (08/1999) History of left heart catheterization (01/22/20) History of ovarian cystectomy Hx of cholecystectomy Social History Smoking Status: Never smoker alcohol intake: current Alcohol type: wine ROS ROS ED Constitutional Constitutional ED: Denies chills or weight loss Eyes Eyes: Denies change in vision or diplopia ENT ENT ED: Denies ear pain, rhinorrhea or sore throat Cardiovascular Cardiovascular: Denies chest pain, orthopnea, palpitations or racing heartbeat Respiratory/Chest Respiratory/Chest: Denies cough, dyspnea or orthopnea Gastrointestinal Gastrointestinal: Denies abdominal pain, diarrhea, nausea or vomiting Genitourinary Genitourinary ED: Denies dysuria, hematuria or urinary frequency Musculoskeletal Musculoskeletal: Reports other Details: See history of present illness ; Denies arthralgias, back pain or myalgias Integumentary Denies abscess or rash Neurologic Neurologic: Denies headache(s) or weakness Psychiatric Psychiatric: Denies anxiety, depression, suicidal ideation or suicidal thoughts Endocrine Endocrinology: Denies polydipsia, polyphagia or polyuria Allergic/Immunologic Allergic/Immunologic ED: Denies mouth swelling, tongue swelling or urticaria EXAM Physical Exam Const Vital Signs: 02/08/21 05:49 Temperature 98.4 F Temperature Source Temporal Pulse Rate 60 Respiratory Rate 18 Blood Pressure 143/71 H Blood Pressure Mean 95 Pulse Ox 99 Oxygen Delivery Method Room Air Positive well nourished and well developed General Appearance ED: well developed HEENT Reports normocephalic, head/scalp atraumatic and moist mucous membranes Eyes PERRL and EOMs intact bilaterally Neck no lymphadenopathy, supple and no JVD Resp normal respiratory effort and clear to auscultation bilaterally Cardio regular rate, regular rhythm and no murmurs GI normal to inspection, nondistended, normoactive bowel sounds and non-tender Palpation: soft Back/Spine no CVA tenderness and normal ROM Extremity Extremity Narrative: Patient has tenderness posterior to the greater trochanter. She also has some tenderness anterior. She has painful range of motion of the hip. No skin changes to suggest inf ection. General Extremety ED: Negative for edema General Extremity: Negative for edema Neuro oriented x3 and CN's II-XII intact bilaterally Sensorium / Orientation: alert Motor Exam: strength 5/5 throughout Psych mental status grossly normal Mood Affect: Negative for depressed or tearful Skin no rashes or lesions noted and no wounds MDM MDM MDM Narrative Medical decision making narrative: My interpretation of the plain films of the right hip and pelvis is no acute fracture. Clinically I think this is a bursitis. I gave her a dose of Kenalog and a dose of Toradol. I will place her on anti-inflammatories instructions for ice and rest. I will write a few [place] for pain. If she is not improving she should see orthopedics. Radiography Diagnostic Testing: Radiology Impression Hip/Pelvis X-Ray 02/08/21 05:58 IMPRESSION: Normal x-ray examination of the pelvis and hip. Electronically Signed: Gabriele Conde MD at 6:40 EDT Tel , Service support , Discharge Plan Triage Chief Complaint: Lower Extremity Injury ED Provider: Jasper Hernandez Dx/Rx/DC Orders Clinical Impression: Greater trochanteric bursitis of right hip Instructions: ED Bursitis Prescriptions: New hydrocodone-acetaminophen [hydrocodone-acetaminophen] 1 TABLET tablet 1 tab PO Q6H PRN PRN (Reason: Pain) 3 Days Qty: 12 RF: 0 naproxen 500 MG tablet 500 mg PO BID Qty: 20 RF: 0 No Action cholecalciferol (vitamin D3) 1,000 unit tablet 1,000 unit PO QDAY RF: 0 aspirin 81 mg tablet,delayed release (DR/EC) 81 mg PO QDAY RF: 0 calcium carbonate [Calcium 500] 500 mg calcium (1,250 mg) tablet 1,000 mg PO DAILY RF: 0 omega 0-ryn-dmu-fish oil [Fish Oil] 1,000 mg (120 mg-180 mg) capsule 1,000 mg PO DAILY RF: 0 omeprazole 20 mg capsule,delayed release(DR/EC) 20 mg PO DAILY RF: 0 vitamin B complex [B Complex-Vitamin B12] Tablet 1 tab PO DAILY RF: 0 folic acid 800 mcg tablet 0.8 mg PO DAILY RF: 0 glucosamine-chondroitin 250 mg-200 mg tablet 250-200 mg tablet 2 tab PO BID RF: 0 amlodipine 10 mg tablet 10 mg PO DAILY Qty: 90 RF: 4 atenolol 25 mg tablet 25 mg PO QDAY Qty: 90 RF: 3 simvastatin [Zocor] 20 mg tablet 20 mg PO QAM Qty: 90 RF: 3 Primary Care Provider: Joyce Roe Referrals: Joyce Roe MD [Primary Care Provider] - As Needed Tio Oliver MD [STAFF PHYSICIAN] - 1 Week if not improving Disposition Disposition: Home, self care What to do if you have Problems For any increased pain, shortness of breath, bleeding, nausea or vomiting, chest pain, or any unexpected problems, contact your Primary Care Provider. Call [facility] ([phone]) or report to the closest Emergency Room. Call 911 if necessary. 02/08/21711 <Electronically signed by Jasper Hernandez DO> Cosigner Signature (if applicable): CC: Dr. Joyce Roe MD Signed Joyce Roe MD Work Phone: Start: 02-08-2021 End: 02-08-2021 Comments: See Note; NOTES: [facility] Imaging Services [address] [place] [address] HIP, UNI W/ Pelvis 2-3 Views MR#: [id number] Acct: [id number] Name: PETER MARIEE Rep #: [id number] : 1935 F 85 From: Gabriele Conde MD PCP: Dr. Joyce Roe MD Status: PRE ER Study: HIP, UNI W/ Pelvis 2-3 Views Date of Exam: 01/24 Exam# [id number] Ordering Dr: Jasper Hernandez DO STUDY: X-RAY - PELVIS AND RIGHT HIP REASON FOR EXAM: Female, 85 years old. pain TECHNIQUE: 3 views of the pelvis and hip. COMPARISON: None. FINDINGS: There is a non-specific bowel gas pattern. Normal visualized soft tissue structures. Normal bilateral iliac wings, sacroiliac joints and visualized sacrum. Normal bilateral superior and inferior pubic rami. Normal pubic symphysis. Normal bilateral ischial tuberosities. Normal visualized femoral head. Normal acetabulum. Normal hip joint. RAD/HIP, UNI W/ Pelvis 2-3 Views IMPRESSION: Normal x-ray examination of the pelvis and hip. Electronically Signed: Gabriele Conde MD at 6:40 EDT Tel , Service support , CC: Dr. Joyce Roe MD; Dr. Jasper Hernandez DO Reheater: Signed Joyce Roe MD Work Phone: Start: 01-14-2021 End: 01-14-2021 Comments: See Note; NOTES: [facility] Cardiovascular Services [address] [place] [address] Carotid Duplex Ultrasound 01/14/21 1507 MR#: [id number] Acct: [id number] Name: PETER MARIEE Rep #: [id number] : 1935 85 From: Daryl Murillo MD Attending Dr: Dr. Joyce Roe MD Status: REG CLI Ordering Dr: Joyce Roe MD Date: 01/14/21 Location: [facility] Sex: F C Admitted: Reason For Study: Atherosclerosis of left carotid artery Rt. Velocities/BP Lt. Velocities/BP Prox CCA 94.3/6.9 cm/sec. Prox CCA 83.8/10.2 cm/sec. Mid CCA 76/10.8 cm/sec. Mid CCA 78.3/12.4 cm/sec. Dist CCA 61.7/8.2 cm/sec. Dist CCA 56.3/6.9 cm/sec. Prox ICA 52/11.3 cm/sec. Prox ICA 58.1/12.6 cm/sec. Mid ICA 77.2/17.9 cm/sec. Mid ICA 59.3/10.2 cm/sec. Dist ICA 90.4/16.8 cm/sec. Dist ICA 81.4/16.3 cm/sec. Rt. ICA/CCA = 1.19. Lt. ICA/CCA = 1.04. Prox ECA 102.1 cm/sec. Prox ECA 113.8 cm/sec. Rt. Vert. 39.9/9.1 cm/sec. Lt. Vert. 47.5/8.8 cm/sec. Right Extracranial There is homogeneous, smooth atherosclerotic plaque noted in the right common carotid artery. There is intimal thickening but no significant atherosclerotic plaque noted in the right internal carotid artery. There is intimal thickening but no significant atherosclerotic plaque noted in the right external carotid artery. Antegrade flow is noted in the right vertebral artery. Left Extracranial There is homogeneous, smooth atherosclerotic plaque noted in the left common carotid artery. There is heterogeneous, irregular atherosclerotic plaque noted in the left internal carotid artery. There is heterogeneous, irregular atherosclerotic plaque noted in the left external carotid artery. Antegrade flow is noted in the left vertebral artery. Procedure Carotid Duplex 16698. This is a Carotid Duplex examination using B-mode, color flow and specral Doppler. Exam performed in department. VL/Carotid Duplex Ultrasound Interpretation Summary No significant atherosclerotic plaque or stenosis noted in the right internal carotid artery. Mild (<50%) stenosis left extracranial internal carotid. Flow within the vertebral arteries is antegrade bilaterally. _ Ordering Physician: Joyce Roe Referring Physician: Joyce Roe Performed By: Kassi Fish, T 01/14/211940 Date Daryl Murillo MD CC: Dr. Joyce Roe MD Date Dictated: 01/14/21 1507 Date Transcribed: 01/14/211940 Reheater: Signed Joyce Roe MD Work Phone: Start: 01-07-2021 End: 01-07-2021 Comments: See Note; NOTES: [facility] [address] [place] [address]. [address] [place] [address] OFFICE VISIT Date of Service: 01/07/21 MR#: [id number] Acct: [id number] Name: PETER MARIEE Rep #: [id number] : 1935 Provider: Dr. Saúl Barney MD Age/Sex: 85/F Location: [facility] [place] Status: Signed HPI [facility] History of Present Illness Details: PETER MARIEE, is a 85 F who presents for a follow-up visit. She is a lady with a history of coronary artery disease status post coronary artery bypass surgery. She was seen by us last January when she was complaining of chest discomfort and underwent a cardiac catheterization which demonstrated a patent JOHN to the LAD, mild disease was noted in the right coronary artery and circumflex artery. The mid LAD was occluded the ejection fraction was normal. She had her medications adjusted and has done well since. She denies any chest pain or shortness of breath or paroxysmal nocturnal dyspnea or pedal edema no neck arm or jaw discomfort to suggest angina. Her physical exam today here is unremarkable. Intake Vital Signs 01/07/21 07:09 01/07/21 07:09 01/07/21 09:36 Height 5 ft 2 in 5 ft 2 in Weight: 127 lb 127 lb BMI 23.2 24.3 23.2 BP 115/62 Respiration 16 Pulse 58 L Pulse Oximetry (%) 99 Intake Visit Reasons: 1 Y FU Allergies No Known Allergies Allergy (Verified 01/09/20 09:13) Medications cholecalciferol (vitamin D3) 25 mcg (1,000 unit) tablet 1,000 unit PO QDAY 12/16/17 [History Confirmed 01/07/21] aspirin 81 mg tablet,delayed release 81 mg PO QDAY tab 01/24/18 [History Confirmed 01/07/21] calcium carbonate 500 mg calcium (1,250 mg) tablet 1,000 mg PO DAILY tab 01/09/20 [History Confirmed 01/07/21] folic acid 800 mcg tablet 0.8 mg PO DAILY 01/09/20 [History Confirmed 01/07/21] glucosamine-chondroitin 250 mg-200 mg tablet 2 tab PO BID tab 01/09/20 [History Confirmed 01/07/21] omega 1-yiy-ljc-fish oil 1,000 mg (120 mg-180 mg) capsule 1,000 mg PO DAILY cap 01/09/20 [History Confirmed 01/07/21] omeprazole 20 mg capsule,delayed release 20 mg PO DAILY cap 01/09/20 [History Confirmed 01/07/21] vitamin B complex 1 tab PO DAILY 01/09/20 [History Confirmed 01/07/21] amlodipine 10 mg tablet 10 mg PO DAILY #90 tab 01/07/21 [Rx Confirmed 01/07/21] atenolol 25 mg tablet 25 mg PO QDAY #90 tab 01/07/21 [Rx Confirmed 01/07/21] simvastatin 20 mg tablet 20 mg PO QAM #90 tab 01/07/21 [Rx Confirmed 01/07/21] Ejection fraction %: 60 to 64 [facility] Medical History Atherosclerotic heart disease of [place] coronary artery without angina pectoris Back problem Essential (primary) hypertension Gallstones Generalized osteoarthrosis of multiple sites GERD (gastroesophageal reflux disease) HLD (hyperlipidemia) Osteopenia Surgical History 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) H/O left breast biopsy H/O: hysterectomy History of appendectomy History of coronary angioplasty (08/1999) History of left heart catheterization (01/22/20) History of ovarian cystectomy Hx of cholecystectomy Family History Mother Cancer Ovarian cancer Heart disease Breast cancer Hypertension Valvular heart disease Father Cancer throat cancer Asthma Sister Breast cancer Daughter Cancer Social History Smoking Status: Never smoker alcohol intake: current Alcohol type: wine ROS Const Const: Negative for fatigue, weakness, headache(s), frequent falls, daytime sleepiness, difficulty sleeping, excessive sweating, weight gain or weight loss Eyes Eyes: Negative for blind spots, loss of peripheral vision, transient loss of vision, blurry vision, double vision or tunnel vision ENT ENT: Negative for headache(s), dizziness, Nosebleed/epistaxis, balance problems, lip swelling, tongue swelling or bleeding gums GI GI: Negative nausea, vomiting, heartburn, constipation, vomiting blood/hematemesis, bright, red blood in stools, black,tarry stools or loose stools : Negative for hematuria Musc Musc: Negative for muscle aches/ myalgia, muscle weakness, joint pain or balance problems Skin Skin: Positive for other; Negative non-healing lesions, rash or unusual bruising Neuro Neuro: Negative for dizziness, lightheadedness, near syncope, syncope, orthostatic symptoms, frequent falls, headache(s), weakness, confusion, memory loss, restless legs, blurry vision, double vision, vertigo or lack of coordination Ho Hematologic/Lymphatic: Negative for easy bruising Endo Endo: Negative for fatigue, cold intolerance, heat intolerance, excessive sweating, flushing, increased thirst/drinking, increased hunger, hair loss or hair growth Psych Psych: Negative for anxiety, depression or panic attacks Allergy Allergy/Immunology: Negative for throat swelling, Negative for tongue swelling, Negative for hives, Negative for rash and Negative for lip swelling Cardiology Exam Const Appearance: cooperative, healthy appearing, comfortable, well developed and well groomed Nutritional Appearance: average body habitus and well nourished Orientation: alert, awake and oriented x3 Head Head: normal to inspection and normocephalic Ears: hearing grossly normal bilaterally and external ears normal Nose: external nose normal, nares normal, nasal mucous membranes and turbinates normal, septum normal and no nasal discharge Face and Sinus: face symmetric Mouth: oral mucosae normal, tongue normal, oropharynx normal and moist mucous membranes Teeth and gingiva: dentition normal Throat: posterior oropharynx normal, tonsils normal and uvula midline Eyes General: appearance normal, both eyes and all related structures Eyelids: eyelids normal Conjunctivae: conjunctivae normal Pupils: PERRL EOM: EOM intact bilaterally Neck Neck: normal visual inspection and no JVD JVD: +5 Carotids: normal carotid upstroke Thyroid: thyroid normal Chest Chest inspection: normal inspection of the chest and symmetric chest movement Auscultation: Bilateral: Clear to Auscultation Cardio Palpation: normal PMI Rate: regular rate Rhythm: regular rhythm Heart sounds: S1 normal and S2 normal GI GI: normal to inspection, soft and no hepatosplenomegaly Neuro General: patient alert, patient awake and patient oriented x3 Skin Skin: no rashes or lesions noted Extremities Pulses: Normal: Right Femoral Pulse and Left Femoral Pulse Lower Extremity Edema: None: Bilateral Musculoskel Musculoskeletal: No joint tenderness Psych Psychological: normal affect Coding Level of Care Code Off vis,est,level 3 Diagnoses Atherosclerotic heart disease of [place] coronary artery without angina pectoris I25.10 [place] vs. transplanted heart: [place] heart H/O coronary artery bypass surgery Z95.1 Essential (primary) hypertension I10 HLD (hyperlipidemia) E78.00; E78.0 Hyperlipidemia type: pure hypercholesterolemia Coding Level of Care Code Off vis,est,level 3 Diagnoses Atherosclerotic heart disease of [place] coronary artery without angina pectoris I25.10 [place] vs. transplanted heart: [place] heart H/O coronary artery bypass surgery Z95.1 Essential (primary) hypertension I10 HLD (hyperlipidemia) E78.00; E78.0 Hyperlipidemia type: pure hypercholesterolemia Supplemental Info Supplemental Information Labs: LDL Cholesterol 87 mg/dL (0-130) HDL Cholesterol 38 mg/dL (40-) L Triglycerides 211 mg/dL (-199) H VLDL Cholesterol 42 mg/dL (5-40) H Diagnostics: Electrocardiogram Cardiac Catheterization Chest X-Ray Pulmonary: No Data to Display Assessment and Plan Assessment and Plan (1) Atherosclerotic heart disease of [place] coronary artery without angina pectoris: Status: Chronic Qualifiers: [place] vs. transplanted heart: [place] heart Qualified Code(s): I25.10 - Atherosclerotic heart disease of [place] coronary artery without angina pectoris Comment: She is status post angiographic evaluation in January 2020. Her blood vessels were noted to be patent she is doing well with no angina and I would recommend that we continue the current medications with no changes. (2) H/O coronary artery bypass surgery: Status: Resolved Comment: CABG x1 JOHN-LAD 11/22/2013 Plan - Dr. Saúl Barney MD: She is status post coronary bypass surgery as noted above. He was documented to be patent I would not recommend we make any changes. (3) Essential (primary) hypertension: Status: Chronic Plan - Dr. Saúl Barney MD: Her blood pressure is under troll at this particular time. No changes were made. She would remain the same this note was generated using a voice recognition system and there may be incorrect words, spelling or punctuation that were not noted when reviewing the office note prior to saving. Thank you for allowing us to participate in the patients plan of care, if you have any questions please do not hesitate to call. She is on the amlodipine 10 mg, atenolol 25 mg (4) HLD (hyperlipidemia): Status: Chronic Qualifiers: Hyperlipidemia type: pure hypercholesterolemia Qualified Code(s): E78.00 - Pure hypercholesterolemia, unspecified; E78.0 - Pure hypercholesterolemia Plan - Dr. Saúl Barney MD: She does have a history of hyperlipidemia and her primary physician manages the above. No changes will be made. Plan Details Other Medications: New: amlodipine 10 mg PO DAILY 90 tabs 4RF Refilled: atenolol 25 mg PO QDAY 90 tabs 3RF simvastatin (Zocor) 20 mg PO QAM 90 tabs 3RF Follow Up: 1 Year ([facility]) 01/07/21 0954 <Electronically signed by Saúl Barney MD> Date Saúl Barney MD Cosigner Signature: Date (if applicable) CC: MD Joyce Haq MD Work Phone: Start: 01-22-2020 End: 01-22-2020 IMAGING/CL.D Comments: See Note; NOTES: [facility] Imaging Services [address] [place] [address] Cardiac Cath Diagnostic MR#: [id number] Acct: [id number] Name: PETER MARIEE Rep #: [id number] : 1935 84 From: Saúl Barney MD PCP: Dr. Joyce Roe MD Status:[facility] Patient Name: PETER MARIEE Study Date: 01/22/2020 Performing: Saúl Barney MD Ht: 61.81 inches 157 cm : 1935 Wt: 132.28 lbs 60 kg Age: 84 Gender: female BSA: 1.6 PROCEDURE(S) PERFORMED WY44-PAF/COR/LV/CABG CLINICAL PROFILE AND INDICATIONS Indications: Suspected CAD Heart Failure: None Stress/Imaging Stress/Image Study Performed: No CONCLUSIONS Non obstructive coronary arteries Patent left internal mammary artery to the left anterior descending artery, mild disease noted in the right coronary artery and circumflex artery and occluded mid left anterior descending artery RECOMMENDATIONS Medical therapy DESCRIPTION OF PROCEDURE The patient arrived to the procedure lab. The risks and benefits of the procedure as well as a full description of our services here and current unavailability of surgical backup were fully explained to the patient and/or their significant other prior to the catheterization. The Timeout was completed, verifying the correct patient and procedure. The patient's procedural site was prepped and draped in the usual fashion. Local anesthetic was given subcutaneously to left radial region with Lidocaine 2%. Using a modified Seldinger technique, arterial access was obtained via the left radial artery, a 6Fr sheath was inserted. Left internal mammary artery graft to the LAD selective angiography was performed in multiple views using a 5 Fr. IM catheter. Left Coronary Artery selective angiography was performed in multiple views using a 5 Fr. JL4 catheter. Right Coronary Artery selective angiography was then performed in multiple views using a 5 Fr. 3DRC (Surinder) catheter. Left Ventriculography was performed in WATERS projection using a 5 Fr. Pigtail catheter. LV to AO pullback pressures were then recorded.The arterial sheath was pulled and a TR Band was applied for hemostasis CORONARY ANGIOGRAPHY DOMINANCE: Co- Dominant LEFT HEART ASSESSMENT Left Ventricular Ejection Fraction: by LV Gram 60 % Normal LV wall motion Normal Left Ventricular systolic function LEFT MAIN: Mild calcification LEFT ANTERIOR DESCENDING ARTERY: MID LAD: is occluded CIRCUMFLEX ARTERY: MID CIRC: Moderate luminal irregularities up to 50% RIGHT CORONARY ARTERY: Mild luminal irregularities less than 30% GRAFTS: JOHN graft to the Mid LAD is patent COMPLICATIONS No Complications PROCEDURE MEDICATIONS Versed 1 mg IV Fentanyl 50 mcg IV Versed 1 mg IV Oxygen: 2 L/min via nasal cannula Heparin given IA 01/22/2020 11:19:08 Verapamil 2.5mg, Ntg 100mcgs, 2000 units of Heparin given IA 01/22/2020 11:19:08 SUMMARY OF HEMODYNAMIC DATA Time AIR REST ECG 09:20:52 AO 140/52 (90) SA 11:20:47 LV 153/0, 8 11:34:00 LV 156/-1, 8 11:34:07 LV 152/2, 11 11:34:43 LV 152/1, 10 11:34:50 LVp 167/3, 14 11:34:57 AOp 161/52 (97) 11:35:02 Signed By Saúl Barney MD On 01/22/2020 11:47:15 Saúl Barney MD 01/22/20 1147 Date Saúl Jenkins Signature: Date (if indicated) CC: Dr. Saúl Barney MD; Dr. Joyce Roe MD Date Dictated: 01/22/20 1113 Date Transcribed: 01/22/20 1136 Reheater: CO Signed Joyce Roe Work Phone: Start: 01-22-2020 End: 01-23-2020 12 Lead EKG Comments: See Note; NOTES: [facility] Cardiovascular Services [address] [place] [address] 12 Lead EKG 01/22/20 0940 MR#: [id number] Acct: [id number] Name: PETER MARIEE Rep #: [id number] : 1935 84 From: Saúl Barney MD Attending Dr: Dr. Saúl Barney MD Status: DEP S DC Ordering Dr: Saúl Barney MD Date: 01/22/20 Location: [facility] Sex: F C Admitted: Test Reason : PRE CATH Blood Pressure : / mmHG Vent. Rate : 053 BPM Atrial Rate : 053 BPM P-R Int : 202 ms QRS Dur : 078 ms QT Int : 450 ms P-R-T Axes : 064 005 095 degrees QTc Int : 422 ms Sinus bradycardia Anteroseptal infarct , age undetermined Abnormal ECG When compared with ECG of 26-APR-2013 23:06, No significant change was found Confirmed by SAÚL BARNEY MD ([id number]), editor continuity and script PEDRO OLIVER ([id number]) on 01/23/2020 4:04:08 PM Referred By: Saúl Barney Confirmed By:SAÚL BARNEY MD 01/23/20 0573 Date Saúl Barney MD CC: Dr. Saúl Barney MD; Dr. Joyce Roe MD Signed Joyce Roe Start: 01-16-2020 End: 01-16-2020 SCREEN MAMM (CAD) W/LOTUS BILAT Comments: See Note; NOTES: [facility] Imaging Services [address] [place] [address] SCREEN MAMM (CAD) W/LOTUS BILAT MR#: [id number] Acct: [id number] Name: PETER MARIEE Rep #: [id number] : 1935 F 84 From: Clayton silva MD PCP: Dr. Joyce Roe MD Status: REG CLI Study: SCREEN MAMM (CAD) W/LOTUS BILAT Date of Exam: 0 01/16/20 Exam# [id number] Ordering Dr: Joyce Roe MD MAMMOGRAPHY - BILATERAL SCREENING REASON FOR EXAM: Female, 84 years old. Routine annual screening examination. PERTINENT HISTORY: Daughter with breast cancer. Remote left excisional breast biopsy. Sister with breast cancer. Mother with breast cancer. Aunt with breast cancer. TECHNIQUE: Digital bilateral breast lotus (3D mammographic acquisition) in the CC and MLO projections. 2-D mediolateral oblique (MLO) and craniocaudad (CC) views of both breasts were obtained. CAD: Full Field Digital Mammography with Computer Added Detection was performed. COMPARISON: Comparison is made with prior examination dated December 20, 2018 and September 02, 2017. FINDINGS: Breast Composition: The breasts are heterogeneously dense, which may obscure small masses. There are no dominant masses or suspicious calcifications. No other significant abnormalities are identified. BI/SCREEN MAMM (CAD) W/LOTUS BILAT IMPRESSION: Stable bilateral screening mammogram. Yearly follow-up mammogram recommended. (A) ASSESSMENT CATEGORY: BIRADS Category 1: Negative. A letter regarding these results will be sent to the patient by the facility within 30 days. Approximately 10% of breast cancers are not detected by mammography. A normal mammogram should not delay biopsy of a clinically suspicious abnormality. [id number] Electronically Signed: Clayton De La Rosa, at 9:01 EDT , Service support , CC: Dr. Joyce Roe MD Reheater: Signed Joyce Roe Work Phone: Start: 01-16-2020 End: 01-16-2020 Chest PA and Lateral Comments: See Note; NOTES: [facility] Imaging Services [address] [place] [address] Chest PA and Lateral MR#: [id number] Acct: [id number] Name: PETER MARIEE Rep #: [id number] : 1935 F 84 From: Clayton silva MD PCP: Dr. Joyce Roe MD Status: [facility] Study: Chest PA and Lateral Date of Exam: 01/16/20 Exam# [id number] Ordering Dr: Saúl Barney MD STUDY: X-RAY CHEST REASON FOR EXAM: Female, 84 years old. Pre heart cath -- CAD, CP, some SOB -- stents-1998, bypass 2013 TECHNIQUE: PA and lateral views of the chest. COMPARISON: Comparison is made with prior study dated April 27, 2013. FINDINGS: Minimal increased markings are seen in the lingular segment of the left upper lobe with blunting of the left costophrenic angle. This most likely represents scarring. There is no demonstrated pleural abnormality. Sternal cerclage wires and vascular clips are present from a prior sternotomy and coronary artery bypass graft procedure (CABG). Normal mediastinum and ashley. Normal visualized pulmonary arteries. There is atherosclerotic calcification of the aortic arch with tortuosity. Normal visualized thoracic spine. Normal visualized ribs, clavicles, and shoulders. Surgical clips are seen in the right upper quadrant most likely secondary to prior cholecystectomy. RAD/Chest PA and Lateral IMPRESSION: No acute abnormality seen. Electronically Signed: Clayton De La Rosa, at 8:34 EDT , Service support , CC: Dr. Saúl Barney MD; Dr. Joyce Roe MD Reheater: Signed Joyce Roe Start: 01-09-2020 End: 01-09-2020 Cardiology Visit Report Comments: See Note; NOTES: [facility] [address] [place] [address]. [address] [place] [address] OFFICE VISIT Date of Service: 01/09/20 MR#: [id number] Acct: [id number] Name: PETER MARIEE Rep #: [id number] : 1935 Provider: Saúl Barney MD Age/Sex: 84/F Location: [facility] Status: Signed [facility] History of Present Illness Details: Patient does not have access to a computer or a mobile device with a camera, a phone visit was completed today. Telehealth visit provided during stay at home measures in response to current pandemic. Patient informed of charge and consents to continue. PETER MARIEE, is a 84 F who presents for a phone visit. She is status post coronary artery disease with a single vessel with a left internal mammary artery to left anterior descending artery. She tells me that she just returned from [place]. She had been having exertional chest discomfort especially when going up an incline. She says that this sometimes radiates to both arms and was reminiscent of the discomfort that she had before she had her bypass surgery. It usually occurs with exertion and goes away with rest and is a dullness. She does not have any palpitations. She has had no dizziness or diaphoresis no near syncope also. She has been compliant with all her medications and has been fairly active when she was in [place]. Her blood pressure has been under good control. Physical exam was not performed today. Her blood pressure however is noted to be normal. Intake Vital Signs01/09/20 Height 5 ft 2 in 01/09/20 Weight: 133 lb 01/09/20 BMI 24.3 01/09/20 BP 134/70 H 01/09/20 Pulse 57 L 01/09/20 Comment BP and HR obtained from patient \\'s home device Intake Visit Reasons: 1 Y FU-TELEPHONE CALL Allergies No Known Allergies Allergy (Verified 01/09/20 09:13) Medications cholecalciferol (vitamin D3) 25 mcg (1,000 unit) tablet 1,000 unit PO QDAY 12/16/17 [History Confirmed 01/09/20] aspirin 81 mg tablet,delayed release 81 mg PO QDAY tab 01/24/18 [History Confirmed 01/09/20] simvastatin 20 mg tablet 20 mg PO QAM #90 tab 01/10/19 [Rx Confirmed 01/09/20] atenolol 25 mg tablet 25 mg PO QDAY #90 tab 02/20/19 [Rx Confirmed 01/09/20] amlodipine 5 mg tablet 5 mg PO QDAY #90 tab 12/22/19 [Rx Confirmed 01/09/20] calcium carbonate 500 mg calcium (1,250 mg) tablet 1,000 mg PO DAILY tab 01/09/20 [History Confirmed 01/09/20] clopidogrel 75 mg tablet 75 mg PO DAILY #30 tab 01/09/20 [Rx Confirmed 01/09/20] folic acid 800 mcg tablet 0.8 mg PO DAILY 01/09/20 [History Confirmed 01/09/20] glucosamine-chondroitin 250 mg-200 mg tablet 2 tab PO BID tab 01/09/20 [History] omega 6-efw-spl-fish oil 1,000 mg (120 mg-180 mg) capsule cap PO DAILY cap 01/09/20 [History Confirmed 01/09/20] omeprazole 20 mg capsule,delayed release 20 mg PO DAILY cap 01/09/20 [History Confirmed 01/09/20] vitamin B complex 1 tab PO DAILY 01/09/20 [History Confirmed 01/09/20] Ejection fraction %: 50 to 54 [facility] Medical History Atherosclerotic heart disease of [place] coronary artery without angina pectoris (Chronic) Essential (primary) hypertension (Chronic) HLD (hyperlipidemia) (Chronic) Back problem (Chronic) GERD (gastroesophageal reflux disease) (Chronic) Gallstones (Chronic) Generalized osteoarthrosis of multiple sites (Chronic) Osteopenia (Chronic) Surgical History H/O coronary artery bypass surgery (Resolved 11/22/13) History of coronary angioplasty (Resolved 08/1999) H/O left breast biopsy (Chronic) History of appendectomy (Chronic) History of ovarian cystectomy (Chronic) Hx of cholecystectomy (Chronic) H/O: hysterectomy (Resolved) Family History Mother Cancer Ovarian cancer Heart disease Breast cancer Hypertension Valvular heart disease Father Cancer throat cancer Asthma Sister Breast cancer Daughter Cancer Social History (Updated 01/09/20 @ 10:[address] Saúl Barney MD) Smoking Status: Never smoker alcohol intake: current Alcohol type: wine ROS Const Const: Negative for fatigue, weakness, headache(s), frequent falls, difficulty sleeping or excessive sweating Eyes Eyes: Negative for loss of peripheral vision, transient loss of vision, blurry vision, double vision or tunnel vision ENT ENT: Negative for headache(s), dizziness, Nosebleed/epistaxis or balance problems Cardio Chest Pain: Yes (SOB and midsternal chest pressure when walking up an incline) Character: tightness Onset: exercise Location: mid sternal, other (BUE) Duration: minutes Exacerbation: exercise Relieving: rest Recurrence: activity Palpitations: No Edema: None Muscle aches with walking: None Resp Respiratory: Positive for SOB with activity; negative for SOB at rest, SOB orthopnea\\SOB lying down, Cough or paroxysmal nocturnal dyspnea GI GI: Negative nausea, vomiting, heartburn or black,tarry stools : Negative for hematuria Musc Musc: Negative for muscle aches/ myalgia, muscle weakness, joint pain or balance problems Skin Skin: Negative non-healing lesions, rash or unusual bruising Neuro Neuro: Negative for dizziness, lightheadedness, near syncope, syncope, orthostatic symptoms, frequent falls, headache(s), weakness, blurry vision, double vision or lack of coordination Ho Hematologic/Lymphatic: Negative for easy bleeding or easy bruising Endo Endo: Negative for fatigue, excessive sweating or increased thirst/drinking Psych Psych: Negative for anxiety or depression Allergy Allergy/Immunology: Negative for hives, Negative for rash Cardiology Exam Const Physical exam was not completed because this was a phone visit. Assessment AND Plan 1. 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 It is fairly new onset. With her history I would recommend that we proceed with a left heart catheterization. The risk benefits and alternatives have been explained to her she understands and agrees to proceed. It is felt that with her progressive nature she needs to have this done sooner. Orders Orders: 2. H/O coronary artery bypass surgery Z95.1 CABG x1 JOHN-LAD 11/22/2013 Plan She does have a history of coronary artery bypass surgery. My recommendation is to have her evaluated with a cardiac catheterization. Orders Orders: 3. Essential (primary) hypertension I10 Plan Her blood pressure appears to be under good control at this particular time and I would not recommend that we make any changes she would remain on the atenolol. 4. Pure hypercholesterolemia E78.00 Plan She does have a history of hyperlipidemia. She is on low to medium intensity statin. The plan is to keep her on the same she tells me that she may be due for lipid profile soon. We may obtain this with her blood work for her catheterization. 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 H/O coronary artery bypass surgery Z95.1 Essential (primary) hypertension I10 Pure hypercholesterolemia E78.00 Hyperlipidemia type: pure hypercholesterolemia Time Spent (min) 20 56447 Coding Level of Care Code Attention Jose Diagnoses Coronary artery disease with exertional angina I25.118 H/O coronary artery bypass surgery Z95.1 Essential (primary) hypertension I10 Pure hypercholesterolemia E78.00 Hyperlipidemia type: pure hypercholesterolemia Time Spent (min) 20 47486 Supplemental Info Supplemental Information Labs LDL Cholesterol 87 mg/dL (0-130) 01/06/19 HDL Cholesterol 38 mg/dL (40-) L 01/06/19 Triglycerides 211 mg/dL (-199) H 01/06/19 VLDL Cholesterol 42 mg/dL (5-40) H 01/06/19 01/09/20 1005 <Electronically signed by Saúl Barney MD> Date Saúl Barney MD Cosigner Signature: Date (if applicable) CC: MD Joyce Haq Start: 01-10-2019 End: 01-10-2019 Cardiology Visit Report Comments: See Note; NOTES: [facility] [address] [place] [address]. [address] [place] [address] OFFICE VISIT Date of Service: 01/10/19 MR#: [id number] Acct: [id number] Name: PETER MARIEE Rep #: [id number] : 1935 Provider: Súal Barney MD Age/Sex: 83/F [place] [facility] Status: Signed HPI HPI Details: PETER MARIEE, is a 83 F who presents to the office today for a follow-up visit. She is status post coronary artery disease with a single vessel with a left internal mammary artery to left anterior descending artery she returns for follow-up visit she denies any chest pain or shortness breath or paroxysmal nocturnal dyspnea pedal edema she has had no neck arm or jaw discomfort suggest angina no dizziness or diaphoresis no near syncope or syncope. He do remember that she underwent stress testing last year where she exercised to over 8 metabolic equivalents without any evidence of angina. She tells me that she has been compliant with her medications and continues to enjoy her life. Her physical exam today demonstrates clear lung drew regular rate and rhythm and no pedal edema. Intake Vital Signs01/10/19 Height 5 ft 2 in Intake Visit Reasons: 1 Y FU Allergies No Known Allergies Allergy (Verified 01/10/19 12:34) Medications calcium carbonate 500 mg calcium (1,250 mg) tablet 500 mg PO BID tab 12/16/17 [History Confirmed 01/10/19] cholecalciferol (vitamin D3) 1,000 unit tablet 1,000 unit PO QDAY 12/16/17 [History Confirmed 01/10/19] omega 7-syk-poj-fish oil 1,000 mg (120 mg-180 mg) capsule cap PO 12/16/17 [History Confirmed 01/10/19] aspirin 81 mg tablet,delayed release 81 mg PO QDAY tab 01/24/18 [History Confirmed 01/10/19] atenolol 25 mg tablet 25 mg PO QDAY #90 tab 01/25/18 [Rx Confirmed 01/10/19] amlodipine 5 mg tablet 5 mg PO QDAY #90 tab 12/19/18 [Rx Confirmed 01/10/19] ranitidine 150 mg tablet 150 mg PO QAM tab 01/10/19 [History Confirmed 01/10/19] simvastatin 20 mg tablet 20 mg PO QAM #90 tab 01/10/19 [Rx Confirmed 01/10/19] PFSH Medical History Essential (primary) hypertension (Chronic) Atherosclerotic heart disease of [place] coronary artery without angina pectoris (Chronic) HLD (hyperlipidemia) (Chronic) GERD (gastroesophageal reflux disease) (Chronic) Osteopenia (Chronic) Back problem (Chronic) Gallstones (Chronic) Generalized osteoarthrosis of multiple sites (Chronic) Surgical History H/O coronary artery bypass surgery (Resolved 11/22/13) History of coronary artery stent placement (Resolved) H/O left breast biopsy (Chronic) History of appendectomy (Chronic) History of ovarian cystectomy (Chronic) Hx of cholecystectomy (Chronic) H/O: hysterectomy (Resolved) Family History Mother Cancer Ovarian cancer Heart disease Breast cancer Hypertension Valvular heart disease Father Cancer throat cancer Asthma Sister Breast cancer Daughter Cancer Social History Smoking Status: Never smoker alcohol intake: current Alcohol type: wine ROS Const Const: Negative for fatigue, weakness, headache(s), frequent falls, difficulty sleeping or excessive sweating Eyes Eyes: Negative for loss of peripheral vision, transient loss of vision, blurry vision, double vision or tunnel vision ENT ENT: Negative for headache(s), dizziness, Nosebleed/epistaxis or balance problems Cardio Chest Pain: No Palpitations: No Edema: None Muscle aches with walking: None Additional Details: Noted BLE edema late winter early spring Resp Respiratory: Negative for SOB with activity, SOB at rest, SOB orthopnea\\SOB lying down, Cough or paroxysmal nocturnal dyspnea GI GI: Negative nausea, vomiting, heartburn or black,tarry stools : Negative for hematuria Musc Musc: Negative for muscle aches/ myalgia, muscle weakness, joint pain or balance problems Skin Skin: Negative non-healing lesions, rash or unusual bruising Neuro Neuro: Negative for dizziness, lightheadedness, near syncope, syncope, orthostatic symptoms, frequent falls, headache(s), weakness, blurry vision, double vision or lack of coordination Ho Hematologic/Lymphatic: Negative for easy bleeding or easy bruising Endo Endo: Negative for fatigue, excessive sweating or increased thirst/drinking Psych Psych: Negative for anxiety or depression Allergy Allergy/Immunology: Negative for hives, Negative for rash Cardiology Exam Const Appearance: cooperative, healthy appearing, no acute distress, well developed and well groomed Nutritional Appearance: average body habitus and well nourished Orientation: alert, awake and oriented x3 Head Head: normal to inspection, normocephalic and atraumatic Ears: hearing grossly normal bilaterally and external ears normal Nose: external nose normal, nares normal, nasal mucous membranes and turbinates normal, septum normal, no nasal discharge Face and Sinus: face symmetric Mouth: oral mucosae normal, tongue normal, oropharynx normal and moist mucous membranes Teeth and gingiva: dentition normal Throat: posterior oropharynx normal, tonsils normal and uvula midline Eyes General: appearance normal, both eyes and all related structures Eyelids: eyelids normal Conjunctivae: conjunctivae normal Pupils: PERRL, normal by confrontation and accommodation normal EOM: EOM intact bilaterally Neck Neck: normal visual inspection, trachea midline and no JVD JVD: +5 Carotids: normal carotid upstroke and bounding pulses Chest Chest inspection: normal inspection of the chest, symmetric chest movement and normal respiratory effort Auscultation: Bilateral: Clear to Auscultation Cardio Palpation: normal PMI Rate: regular rate Rhythm: regular rhythm Heart sounds: S1 normal, S2 normal and normal, physiologic split S2; negative rub, gallop or murmur GI GI: normal to inspection, soft, no hepatosplenomegaly and bowel sounds present Neuro General: alert, awake, oriented x3, gait normal, moves all extremities and no focal sensory deficit Skin Skin: no rashes or lesions noted Extremities Pulses: Normal: Right Femoral Pulse, Left Femoral Pulse, Right Dorsalis Pedis Pulse, Left Dorsalis Pedis Pulse, Right Posterior Tibial Pulse, Left Posterior Tibial Pulse, Right Radial Pulse, Left Radial Pulse Lower Extremity Edema: None: Bilateral Musculoskel Musculoskeletal: No joint tenderness Psych Psychological: normal affect Assessment AND Plan 1. H/O coronary artery bypass surgery Z95.1 CABG x1 JOHN-LAD 11/22/2013 Plan She is status post coronary artery bypass surgery in 2013 she continues to do well she had a stress test in February 2017 with no evidence of ischemia ejection fraction was noted to be 80%. She will remain on the same medications. 2. Essential (primary) hypertension I10 Plan Her blood pressure appears to be under excellent control at this particular time no changes will be made once again. 3. Pure hypercholesterolemia E78.00 Plan She does have a history of hyperlipidemia and her most recent lipid profile demonstrated a total cholesterol 167, HDL 38, LDL of 87, triglycerides of 211. She will remain on the current dose of low to medium intensity statin. Thank you for allowing me to participate in her care. 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) Coding Level of Care Code Off vis,est,level 3 Diagnoses H/O coronary artery bypass surgery Z95.1 Essential (primary) hypertension I10 Pure hypercholesterolemia E78.00 Hyperlipidemia type: pure hypercholesterolemia Coding Level of Care Code Off vis,est,level 3 Diagnoses H/O coronary artery bypass surgery Z95.1 Essential (primary) hypertension I10 Pure hypercholesterolemia E78.00 Hyperlipidemia type: pure hypercholesterolemia Supplemental Info Supplemental Information Labs LDL Cholesterol 87 mg/dL (0-130) 01/06/19 HDL Cholesterol 38 mg/dL (40-) L 01/06/19 Triglycerides 211 mg/dL (-199) H 01/06/19 VLDL Cholesterol 42 mg/dL (5-40) H 01/06/19 01/10/19 1505 <Electronically signed by Saúl Barney MD> Date Saúl Barney MD Cosigner Signature: Date (if applicable) CC: Joyce Roe Start: 12-24-2018 End: 12-24-2018 Carotid Duplex Ultrasound Comments: See Note; NOTES: [facility] Cardiovascular Services [address] [place] [address] Carotid Duplex Ultrasound 12/20/18 1036 MR#: [id number] Acct: [id number] Name: PETER MARIEE Rep #: [id number] : 1935 83 From: Daryl Murillo MD Attending Dr: Joyce Roe MD Status: REG CLI Ordering Dr: Joyce Roe MD Date: 12/20/18 Location: OPBD Sex: F C Admitted: Reason For Study: atherosclerosis Rt. Velocities/BP Lt. Velocities/BP Prox CCA 61.7/10.8 cm/sec. Prox CCA 77.2/15.7 cm/sec. Mid CCA 68.2/12.1 cm/sec. Mid CCA 70.6/14.6 cm/sec. Dist CCA 60.4/12.1 cm/sec. Dist CCA 57.4/12.4 cm/sec. Prox ICA 48.6/12.1 cm/sec. Prox ICA 56.3/15.7 cm/sec. Mid ICA 63.0/14.7 cm/sec. Mid ICA 61.8/12.4 cm/sec. Dist ICA 60.4/12.5 cm/sec. Dist ICA 75.0/20.1 cm/sec. Rt. ICA/CCA = .9. Lt. ICA/CCA = 1.1. Prox ECA 111.2/8.2 cm/sec. Prox ECA 101.4/5.8 cm/sec. Rt. Vert. 43.2/8.0 cm/sec. Lt. Vert. 32.2/6.9 cm/sec. Right Extracranial There is intimal thickening but no significant atherosclerotic plaque noted in the right common carotid artery. There is intimal thickening but no significant atherosclerotic plaque noted in the right internal carotid artery. There is intimal thickening but no significant atherosclerotic plaque noted in the right external carotid artery. Antegrade flow is noted in the right vertebral artery. Left Extracranial There is intimal thickening but no significant atherosclerotic plaque noted in the left common carotid artery. There is heterogeneous, irregular atherosclerotic plaque noted in the left internal carotid artery. There is heterogeneous, irregular atherosclerotic plaque noted in the left external carotid artery. Antegrade flow is noted in the left vertebral artery. Procedure Carotid Duplex [id number]. The exam was diagnostic. Exam performed in department. Interpretation Summary No significant atherosclerotic plaque or stenosis noted in the right internal carotid artery. Mild (<50%) stenosis left extracranial internal carotid. Flow within the vertebral arteries is antegrade bilaterally. Ordering Physician: Joyce Roe Performed By: Misbah Gilliam RVT 12/24/18 0839 Date Daryl Murillo MD CC: Joyce Roe MD Date Dictated: 12/20/18 1036 Date Transcribed: 12/24/18 0839 Reheater: Signed Joyce Roe Work Phone: Start: 12-20-2018 End: 12-21-2018 Dexa Bone Density Study Comments: See Note; NOTES: [facility] Imaging Services [address] [place] [address] Dexa Bone Density Study MR#: [id number] Acct: [id number] Name: PETER MARIEE Rep #: [id number] : 1935 F 83 From: Clayton De La Rosa MD PCP: Joyce Roe MD Status: REG CLI Study: Dexa Bone Density Study Date of Exam: 12/20/18 Exam# [id number] Ordering Dr: Joyce Roe MD STUDY: DUAL ENERGY X-RAY ABSORPTIOMETRY / DXA REASON FOR EXAM: Female, 83 years old. The patient is postmenopausal. Loss of height. TECHNIQUE: Bone Mineral Density (BMD) measurements of lumbar spine and bilateral hips were obtained. COMPARISON: Comparison is made with prior study dated August 19, 2010. FINDINGS: Lumbar Spine (L1-L4): g/cm2 (0.969) / T-score (-1.6) / Z-score (0.2) Findings are suggestive of osteopenia with a moderate fracture risk. Left Femur Total: g/cm2 (0.891) / T-score (-0.9) / Z-score (1.1) Left Femoral Neck: g/cm2 (0.806) / T-score (-1.7) / Z-score (0.5) Right Femur Total: g/cm2 (0.882) / T-score (-1.0) / Z-score (1.1) Right Femoral Neck: g/cm2 (0.835) / T-score (-1.5) / Z-score (0.8) The T-Scores on the most recent prior examination were: Lumbar Spine (L1-L4): There has been worsening of bone density since the previous examination. Left Femur Total: which represents a worsening of 1%. Right Femur Total: which represents an improvement of 0.3%. BD/Dexa Bone Density Study IMPRESSION: The patient is considered osteopenic as outlined below according to World Bruno Organization (WHO) criteria with a moderate fracture risk. There has been worsening of bone density since the previous examination. Reference Information: The T-score is the number of standard deviations above or below the standard which is normal for young adults at their peak bone mineral density. The World Health Organization (WHO) interprets the T-scores as follows: Above -1 Normal bone density Between -1 and -2.5 Osteopenia Equal to / or below -2.5 Osteoporosis As a practical clinical guideline, osteopenia may be graded as follows: Mild -1 through -1.5 Moderate -1.6 through -2.0 Severe -2.1 through -2.4 The Z-score is the number of standard deviations above or below age-matched controls. A Z-score of less than -1.5 would be considered abnormal. References: 1. NIH Osteoporosis and Related Bone Diseases http://www.osteo.org 2. International Society for Clinical Densitometry http://www.iscd.org 3. National Osteoporosis Foundation http://www.nof.org Electronically Signed: Clayton De La Rosa, at 11:45 EDT , Service support , CC: Joyce Roe MD Reheater: Signed Joyce Roe Work Phone: Start: 12-20-2018 End: 12-21-2018 SCREENING MAMM (CAD), BILAT Comments: See Note; NOTES: [facility] Imaging Services [address] [place] [address] SCREENING MAMM (CAD), BILAT MR#: [id number] Acct: [id number] Name: PETER MARIEE Rep #: [id number] : 1935 F 83 From: Clayton De La Rosa MD PCP: Joyce Roe MD Status: [facility] Study: SCREENING MAMM (CAD), BILAT Date of Exam: 12/20/18 Exam# [id number] Ordering Dr: Joyce Roe MD MAMMOGRAPHY - BILATERAL SCREENING REASON FOR EXAM: Female, 83 years old. Routine annual screening examination. PERTINENT HISTORY: Daughter with breast cancer. Sister with breast cancer. Mother with breast cancer. Aunt with breast cancer. History of prior left excisional breast biopsy. TECHNIQUE: Digital bilateral breast lotus (3D mammographic acquisition) in the CC and MLO projections. 2-D mediolateral oblique (MLO) and craniocaudad (CC) views of both breasts were obtained. CAD: Full Field Digital Mammography with Computer Added Detection was performed. COMPARISON: Comparison is made with prior study dated September 02, 2017 and September 01, 2016. FINDINGS: Breast Composition: The breasts are heterogeneously dense, which may obscure small masses. There are no dominant masses or suspicious calcifications. No other significant abnormalities are identified. There has been no significant change since the prior study. BI/SCREENING MAMM (CAD), BILAT IMPRESSION: Stable bilateral screening mammogram. Yearly follow-up mammogram recommended. (A) ASSESSMENT CATEGORY: BIRADS Category 1: Negative. A letter regarding these results will be sent to the patient by the facility within 30 days. Approximately 10% of breast cancers are not detected by mammography. A normal mammogram should not delay biopsy of a clinically suspicious abnormality. [id number] Electronically Signed: Clayton De La Rosa, at 14:15 EDT , Service support , CC: Joyce Roe MD Reheater: Signed Joyce Roe Work Phone: Start: 08-01-2018 End: 08-01-2018 Ext Non Vasc Limited/Soft Tiss Comments: See Note; NOTES: [facility] Imaging Services [address] [place] [address] Ext Non Vasc Limited/Soft Tiss MR#: [id number] Acct: [id number] Name: PETER MARIEE Rep #: [id number] : 1935 F 83 From: Danuta Campos MD PCP: Joyce Roe MD Status: REG CLI Study: Ext Non Vasc Limited/Soft Tiss Date of Exam: 08/01/18 Exam# [id number] Ordering Dr: Joyce Roe MD STUDY: SUPERFICIAL ULTRASOUND - LOWER EXTREMITY. REASON FOR EXAM: Female, 83 years old. Ankle nodule/tender TECHNIQUE: A superficial ultrasound was performed with real-time and static delong-scale imaging. COMPARISON: None. FINDINGS: No discrete solid or cystic lesions are visualized. No subcutaneous edema is seen. US/Ext Non Vasc Limited/Soft Tiss IMPRESSION: No discrete solid or cystic lesion. Electronically Signed: Danuta Campos MD at 22:13 EST Tel , Service support , CC: Joyce Roe MD Reheater: Signed Joyce Roe Work Phone: Start: 03-07-2018 End: 03-07-2018 PT D/C Summary (1) Comments: See Note; NOTES: [facility] Physical Therapy Health[address] [place], [place] [address] Fax REHABILITATION SERVICES DISCHARGE SUMMARY MR#: [id number] Acct: [id number] Name: PETER MARIEE Rep #: [id number] : 1935 82 From: Manuela Alvarado PT, Cert. MDT Referring Dr.: Joyce Roe MD Status: REG RCR Insurance: MEDICARE PART A B [employer] HP - PT D/C Summary It has been my pleasure to treat PETER MARIEE under orders from Joyce Roe, for the diagnosis of NELLY SHOULDER PAIN for a total of 14 visit(s). Discharge Date: 03/07/18 Please see the following information for a summary of their discharge status. - Subjective Subjective: PATIENT REPORTS SHE WENT TO A FOLLOW UP WITH DR. ROE WEDNESDAY. SHE REPORTS DR. ROE DID NOT RECOMMEND FURTHER TESTING OR SURGERY FOR LEFT SHOULDER. STATES DR. ROE DID NOT RECOMMEND LEFT SHOULDER MRI BUT SHE DID PUT HER ON PREDNISONE. PATIENT REPORTS SHE HAS BEEN ON PREDNISONE IN THE PAST FOR HER OTHER PAINS OTHER THAN HER SHOULDER. SHE HAS HAD CORTISONE INJECTION AND WATER EX PT FOR HER KNEE IN THE PAST. STATES DR. ROE GAVE HER ANOTHER PT ORDER OPEN TO TREAT HER SHOULDERS, BACK AND KNEES BUT SHE FORGOT IT. 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 NO PAIN WHEN SHE WOKE UP THIS MORNING. PATIENT IS HOPEFUL THAT HEP AND TIME WILL GET LEFT SHOULDER BACK TO 100%. SHE REPORTS HER RIGHT SHOULDER IS BACK TO NORMAL AND HER LEFT SHOULDER PAIN RANGES 0/10 TO 1 OR 2/10 AT ITS WORST. ABLE TO GO BOATING AND GET ON THE JET SKI EVEN BUT FELT WEAKER THAN LAST YEAR. PATIENT REPORTS THE PREDNISONE SEEMS TO HAVE HELPED HER KNEE A LOT BUT NOT NOTICING A CHANGE IN HER SHOULDER. - Pain LEFT SHOULDER Pain Intensity (Out of 10): 1 RIGHT SHOULDER Pain Intensity (Out of 10): 0 - Overall Improvement % Improvement: 95 - Objective Objective/Function: PATIENTS LEFT SHOULDER PAIN, ROM AND STRENGTH HAS IMPROVED GREATLY SINCE INITIAL EVAL BUT SHE CONTINUES TO HAVE LEFT SHOULDER DECREASED ROM, STRENGTH AND PAIN COMPARED TO THE RIGHT SHOULDER WHICH IS NOW WNL IN TERMS OF FUNCTION AND NOT PAINFUL. UPON EXAM, LEFT SHOULDER AROM IN SITTING = 150 DEG, PROM IN LYING INTO FLEX = 158 DEG WITH END RANGE PAIN. SUPINE LEFT SHOULDER SCAPTION IN 160 DEG. SUPINE PASSIVE IR 75 DEG AND ER 69 DEG. PATIENT HAS SOME REPORTABLY MILD PAIN AT THE END OF THE AVAILABLE ROM WITH LEFT SHOULDER ROM TESTING ALL PLANES. NELLY UE MMT'ING IS 4-5/5 AND TESTING DOES NOT PROVOKE PAIN (FLEX AND ABDUCTION TESTED MID-RANGE AND IR/ER ROTATION TESTED WITH ELBOW AT SIDE) DASH SCORE HAS IMPROVED FROM 76 TO 53 SINCE FEBRUARY 18 AND FROM 81 TO 53 SINCE INITIAL EVAL. ALL GOALS HAVE MET. INDEP HEP. - Goals Goal 1:: DECREASE C/O NELLY SHOULDER PAIN Goal Progress: Goal Met Goal 2:: IMPROVE LIFTING, PUSHING, PULLING, REACHING, ADL AND SLEEP FUNCTION Goal Progress: Goal Met Goal 3:: INDEP HEP Goal Progress: Goal Met - Plan Plan: THIS PT AND PATIENT AGREE ON D/C TO INDEP EX AND FOLLOW UP WITH DR. ROE NEEDED AT THIS TIME. WE WOULD BE HAPPY TO RESUME PT INDICATED IN THE FUTURE. - D/C Information If there are questions or concerns regarding this patient's physical therapy, please feel free to call me at [phone]. Thank you for the referral of this patient. Sincerely, Manuela Alvarado <Electronically signed by Manuela Alvarado PT, Cert. MDT> 03/07/18 1131 CC: Joyce Roe MD PAUL Signed Joyce Roe Start: 03-04-2018 End: 03-04-2018 Knee 4 or More Views Comments: See Note; NOTES: [facility] Imaging Services [address] [place] [address] Knee 4 or More Views MR#: [id number] Acct: [id number] Name: PETER MARIEE Rep #: [id number] : 1935 F 82 From: Clayton De La Rosa MD PCP: Joyce Roe MD Status: REG CLI Study: Knee 4 or More Views Date of Exam: 03/04/18 Exam# [id number] Ordering Dr: Joyce Roe MD STUDY: X-RAY - LEFT KNEE REASON FOR EXAM: Female, 82 years old. Chronic knee pain. TECHNIQUE: 4 view(s) of the knee. COMPARISON: None. FINDINGS: Normal visualized distal femur. Normal visualized proximal tibia and fibula. Normal proximal tibiofibular articulation. There is mild degenerative arthrosis of the medial femorotibial compartment. Normal lateral femorotibial compartment. Normal patellofemoral articulation. Chondrocalcinosis of the medial and lateral menisci. Minimal joint effusion. RAD/Knee 4 or More Views IMPRESSION: Degenerative arthrosis. Chondrocalcinosis of the medial and lateral menisci. Minimal joint effusion. Electronically Signed: Clayton De La Rosa MD at 12:53 EDT Tel [phone], Service support , CC: Joyce Roe MD Reheater: Signed Joyce Roe Work Phone: Start: 02-24-2018 End: 02-24-2018 Downtime Report Comments: See Note; NOTES: [facility] Medical Records Department [address] [place] [address] Downtime Report MR#: [id number] Acct: [id number] Name: KODIPETER FORREST E Rep #: [id number] : 1935 82 From: Julio Oliver PCP: Joyce Roe MD Status: REG RCR This patient was seen during an EMR downtime February 07, 2018 - February 14, 2018. This patient may have a combination of paper and electronic documentation or all paper documentation. All documentation is viewable within the e-chart portion of [employer] for each patient visit. Joyce Roe Start: 02-18-2018 End: 02-18-2018 Re-Evaluation - PT (1) Comments: See Note; NOTES: [facility] Physical Therapy [facility] [facility] [place] [address] Fax REEVALUATION / MEDICARE RECERTIFICATION PHYSICAL THERAPY MR#: [id number] Acct: [id number] Name: PETER MARIEE E Rep #: [id number] : 1935 82 From: Manuela Alvarado PT, Cert. MDT Referring Dr.: Joyce Roe MD Status: REG RCR Insurance: MEDICARE PART A B [employer] Joyce Roe, It has been my pleasure to treat PETER MARIEE over the last 9 visits for NELLY SHOULDER PAIN. Please see the progress note below for an update on the physical therapy plan of care! Subjective: PATIENT REPORTS SHE STILL FEELS LIKE THE THERAPY IS HELPING. ABLE TO DO THE HEP WITHOUT INCREASED PAIN. Objective/Function: UPON EXAM, PATIENT CONTINUES TO HAVE LIMITED BILATERAL SHOULDER FORWARD FLEXION AROM TO ABOUT 140 DEG BUT THERE IS MUCH LESS PAIN WITH MVMT NOW. SHE IS TOLERATING PRE WELL WITH INCREASED NELLY SHOULDER STRENGTH GRADED 4/5 NOW ALL PLANES WITH MMT'ING. PATIENT IS A GOOD CANDIDATE TO CONTINUE PT AT THIS TIME. Plan Plan: DECREASE PT TO 2X'S A WEEK X 3 WEEKS AND CONTINUE PER CURRENT POC WORKING TOWARD SAME GOALS. PATIENT IS AGREEABLE. Goals Goal 1:: DECREASE C/O NELLY SHOULDER PAIN Goal Time Frame: 4-6 Weeks Goal Progress: Progressing Goal 2:: IMPROVE LIFTING, PUSHING, PULLING, REACHING, ADL AND SLEEP FUNCTION Goal Time Frame: 4-6 Weeks Goal Progress: Progressing Goal 3:: INDEP HEP Goal Time Frame: 4-6 Weeks Goal Progress: Progressing Anticipated Interventions Patient/Client Instruction: Educate patient on: Condition, Plan of Care, Risk Factors, Benefits of Fitness Program For the Purpose of:: To improve self management Therapeutic Exercise to Include: Strength training, Body mechanics, Postural training, Flexibilty training, Passive ROM, Active ROM, Scapular Strength/Stabilization For the Purpose of:: To decrease pain, To increase ROM, To improve muscle performance and motor function, To increase tolerance to activity/condition/position, To improve ability of physical actions for home/community/work/leisure Cryotherapy (ice pack, ice massage): Yes Thermo therapy (hot pack): Yes Ultrasound (thermal/non thermal): Yes For the Purpose of:: To decrease pain, To decrease swelling/inflammation, To increase ROM, To improve nutrient delivery to tissue Please do not hesitate to contact me at [phone] by phone or if you have questions or concerns regarding this new plan of care! Sincerely, Manuela Alvarado <Electronically signed by Manuela Alvarado PT, Cert. MDT> 02/18/18 6904 CC: Joyce Roe MD PAUL Signed For Medicare only, by signing this I certify the plan of care. Physicians Signature Date Joyce Roe Start: 01-26-2018 End: 01-26-2018 Inital Evaluation (1) - PT Comments: See Note; NOTES: [facility] Physical Therapy [facility] [address] [place] [address] Fax REHABILITATION SERVICES INITIAL EVALUATION MR#: [id number] Acct: [id number] Name: PETER MARIEE Rep #: [id number] : 1935 82 From: Manuela Alvarado PT, Cert. MDT Referring Dr.: Joyce Roe MD Status: REG RCR Insurance: MEDICARE PART A B [employer] Patient's Visit Information PETER MARIEE is a 82 year old F referred to Physical Therapy by Joyce Roe with a diagnosis of NELLY SHOULDER PAIN. Date of Evaluation: 01/26/18 Physical Therapist: Manuela Alvarado - Visit Plan Frequency: 2-3x /Week Duration: 4-6 Weeks Plan: POSTURE CORRECTION/STRENGTHENING, INSTRUCTION IN APPROPRIATE BODY MECHANICS AND ACTIVITY MODIFICATIONS. NELLY UE ROM, STRETCHING AND STRENGTHENING. HEP INSTRUCTION. MODALITIES NEEDED. - Subjective Subjective: Diagnosis: NELLY SHOULDER PAIN LEFT > RIGHT. RIGHT HANDED. Work/Leisure: RETIRED. Disability: NO. Present symptoms: NELLY SHOULDER PAIN LEFT > RIGHT. RIGHT HANDED. CURRENTLY DENIES NECK PAIN. Present since: 2 MONTHS. Pain Scale: Worst - 10/10 Least - 3/10. Currently: LEFT SHOULDER 6/10, RIGHT SHOULDER 3/10. Commenced as a result of: NO APPARENT REASON. Symptoms at onset: LEFT SHOULDER. Worse: PUTTING IT BEHIND HER BACK TO PUT HER BRA ON, HAS TO PUT LEFT SLEEVE ON FIRST, LEFT SDLY, TRYING TO MOVE ARM AFTER RESTING IT ON ARM REST. Better: HANGING AT SIDE. Disturbed sleep: YES. Previous history/Previous treatment: NO SHOULDER SURGERIES. NO INJECTIONS. NO SHOULDER PT. NO CHIRO. HISTORY OF NECK PROBLEMS AND HAD PT ABOUT 5 YEARS AGO. NO NECK SURGERY. NO NECK INJECTIONS. STATES DR. HERNANDEZ RECOMMENDED INJECTIONS BUT SHE DID NOT HAVE THEM. EXERCISE HELPED HER NECK. MASSAGE 2 WEEKS AGO HERE WITH CRICKET AND IT HELPED HER SHOULDERS. Dizziness: NO. Tinnitis: NO. Nausea: NO. Difficulty Swollowing: NO. Gait: NORMAL - NO ASSISTIVE DEVICES. Accidents: NO. Unexplained weight loss: NO. Imaging: RECENT LEFT SHOULDER X-RAY RESULTS: Mild degenerative changes of the acromioclavicular joint. The findings appear unchanged from a chest film of April 27, 2013. PMH/Recent major surgery: RECENT EPISODE OF PT FOR KNEES - IMPROVING. OPEN HEART SURGERY 2013. NO CVA. NO CANCER. NOT DIABETIC. HTN. - Objective Sitting Posture/Standing Posture: POOR. FORWARD HEAD AND ROUNDED SHOULDERS. Active Correction of posture: NE. Other Observations: INDEP GAIT AND TRANSFERS. Motor deficit: NELLY SHOUDER STRENGTH 3+/5 IN AVAILABLE ROM. PAIN WITH TESTING. NELLY ELBOW, WRIST AND HAND WFL. Sensory deficit: NO. ROM deficit: NELLY SHOULDER AROM LIMITED ABOUT 25% NELLY ALL PLANES WITH ACTIVE SHOULDER FLEX TO APPROX 135 DEG. PAIN WITH TESTING. NELLY ELBOW, WRIST AND HANDS WFL. Cervical Mvmt Loss: Flex: NIL. Pro: NIL. Ext: CHARLIE. Ret: CHARLIE. RSB: CHARLIE. LSB: CHARLIE. R Rot: MOD. L Rot: MOD. NO PAIN WITH CERVICAL ROM TESTING. Postural strength: POOR. Palpation: TENDERNESS OF NELLY SHOULDERS ESPECIALLY LEFT LATERAL SHOULDER. INCREASED MUSCLE TONE NELLY UPPER TRAPS LEFT > RIGHT. - Goals Goal 1:: DECREASE C/O NELLY SHOULDER PAIN Goal Time Frame: 4-6 Weeks Goal 2:: IMPROVE LIFTING, PUSHING, PULLING, REACHING, ADL AND SLEEP FUNCTION Goal Time Frame: 4-6 Weeks Goal 3:: INDEP HEP Goal Time Frame: 4-6 Weeks - Rehabilitation Potential Rehabilitation Potential: Fair - Anticipated Interventions Patient/Client Instruction: Educate patient on: Condition, Plan of Care, Risk Factors, Benefits of Fitness Program For the Purpose of:: To improve self management Therapeutic Exercise to Include: Strength training, Body mechanics, Postural training, Flexibilty training, Passive ROM, Active ROM, Scapular Strength/Stabilization For the Purpose of:: To decrease pain, To increase ROM, To improve muscle performance and motor function, To increase tolerance to activity/condition/position, To improve ability of physical actions for home/community/work/leisure Cryotherapy (ice pack, ice massage): Yes Thermo therapy (hot pack): Yes Ultrasound (thermal/non thermal): Yes For the Purpose of:: To decrease pain, To decrease swelling/inflammation, To increase ROM, To improve nutrient delivery to tissue Thank you for the opportunity to evaluate your patient. For Medicare and Medicare HMO plans, please review the plan of care and approve it. It will need to be FAXED BACK to us at [phone] for Medicare purposes. Please let me know if there are questions or concerns regarding this plan of care. Physician Signature: ___Date: <Electronically signed by Manuela Alvarado PT, Cert. MDT> 01/26/18 1800 CC: Joyce Roe MD PAUL Signed For Medicare only, by signing this I certify the plan of care. Physicians Signature Date Joyce Roe Start: 01-25-2018 End: 01-25-2018 Cardiology Visit Report Comments: See Note; NOTES: [facility] [address] [place] [address] OFFICE VISIT Date of Service: 01/25/18 MR#: [id number] Acct: [id number] Name: PETER MARIEE Rep #: [id number] : 1935 Provider: Saúl Barney MD Age/Sex: 82/F Location: [facility] [place] Status: Signed HPI HPI Chief Complaint: Follow up Details: PETER MARIEE, is a 82 F who presents to the office today for a follow-up visit. She is status post coronary artery disease with a single vessel with a left internal mammary artery to left anterior descending artery she returns for follow-up visit she denies any chest pain or shortness breath or paroxysmal nocturnal dyspnea pedal edema she has had no neck arm or jaw discomfort suggest angina no dizziness or diaphoresis no near syncope or syncope. He do remember that she underwent stress testing last year where she exercised to over 8 metabolic equivalents without any evidence of angina. She tells me that she has been compliant with her medications and continues to enjoy her life. Her physical exam today demonstrates clear lung drew regular rate and rhythm and no pedal edema. Intake Vital Signs01/25/18 Height 5 ft 1 in 01/25/18 Weight: 135 lb 01/25/18 Body Mass Index (BMI) 25.4 01/25/18 Blood Pressure 142/70 Intake Visit Reasons: 1 Y FU Script Worker Required: No Accompanied by: none Is patient in pain?: No Allergies No Known Allergies Allergy (Verified 01/25/18 13:20) Medications amlodipine 5 mg tablet 5 mg PO QDAY #90 tab 09/01/17 [Rx Confirmed 01/25/18] simvastatin 20 mg tablet 20 mg PO QAM #90 tab 09/01/17 [Rx Confirmed 01/25/18] calcium carbonate 500 mg calcium (1,250 mg) tablet 500 mg PO BID tab 12/16/17 [History Confirmed 01/25/18] cholecalciferol (vitamin D3) 1,000 unit tablet 1,000 unit PO QDAY 12/16/17 [History Confirmed 01/25/18] glucosamine 750 xe-ypcdeqennwz-yuu no1 644 mg-C 30 mg-kristie 1 mg tablet tab PO 12/16/17 [History Confirmed 01/25/18] omega 2-jlc-gry-fish oil 1,000 mg (120 mg-180 mg) capsule cap PO 12/16/17 [History Confirmed 01/25/18] aspirin 81 mg tablet,delayed release 81 mg PO QDAY tab 01/24/18 [History Confirmed 01/25/18] atenolol 25 mg tablet 25 mg PO QDAY #90 tab 01/25/18 [Rx Confirmed 01/25/18] [facility] Medical History Osteopenia (Chronic) GERD (gastroesophageal reflux disease) (Chronic) HTN (hypertension) (Chronic) Atherosclerotic heart disease of [place] coronary artery without angina pectoris (Chronic) HLD (hyperlipidemia) (Chronic) Back problem (Chronic) Gallstones (Chronic) Generalized osteoarthrosis of multiple sites (Chronic) Surgical History Presence of aortocoronary bypass graft (Chronic) History of coronary artery stent placement (Chronic) H/O left breast biopsy (Chronic) H/O: hysterectomy (Chronic) History of appendectomy (Chronic) History of ovarian cystectomy (Chronic) Hx of cholecystectomy (Chronic) Family History Mother Cancer Ovarian cancer Heart disease Breast cancer Hypertension Valvular heart disease Father Cancer throat cancer Asthma Sister Breast cancer Daughter Cancer Social History Smoking Status: Never smoker alcohol intake: current Alcohol type: wine ROS Const Const: Negative for fatigue, weakness, night sweats, excessive sweating, frequent falls, headache(s) or daytime sleepiness Eyes Eyes: Negative for loss of peripheral vision, transient loss of vision, blind spots, double vision or blurry vision ENT ENT: Negative for headache(s), dizziness, balance problems, Nosebleed/epistaxis, tongue swelling or lip swelling Cardio Chest Pain: No Palpitations: No Edema: None Muscle aches with walking: None Resp Respiratory: Negative for SOB at rest, SOB orthopnea\\SOB lying down, Cough, paroxysmal nocturnal dyspnea or SOB with activity GI GI: Negative nausea, vomiting, heartburn, black,tarry stools or bright, red blood in stools : Negative for hematuria Musc Musc: Negative for balance problems, muscle aches/ myalgia, muscle weakness or joint pain Skin Skin: Negative non-healing lesions, unusual bruising or rash Neuro Neuro: Negative for weakness, frequent falls, headache(s), double vision, dizziness, lightheadedness, orthostatic symptoms, blurry vision or lack of coordination Ho Hematologic/Lymphatic: Negative for easy bruising or easy bleeding Endo Endo: Negative for fatigue, excessive sweating, cold intolerance, heat intolerance, increased thirst/drinking or hair loss Psych Psych: Negative for anxiety or depression Allergy Allergy/Immunology: Negative for throat swelling, Negative for tongue swelling, Negative for hives, Negative for rash, Negative for lip swelling Cardiology Exam Const Appearance: cooperative, healthy appearing, well developed, well groomed and no acute distress Nutritional Appearance: well nourished and average body habitus Orientation: alert, awake and oriented x3 Head Head: normal to inspection, normocephalic and atraumatic Ears: hearing grossly normal bilaterally and external ears normal Nose: external nose normal, nasal mucous membranes and turbinates normal, nares normal, septum normal, no nasal discharge Face and Sinus: face symmetric Mouth: oral mucosae normal, tongue normal, oropharynx normal and moist mucous membranes Teeth and gingiva: dentition normal Throat: posterior oropharynx normal, tonsils normal and uvula midline Eyes General: appearance normal, both eyes and all related structures Eyelids: eyelids normal Conjunctivae: conjunctivae normal Pupils: PERRL, normal by confrontation and accommodation normal EOM: EOM intact bilaterally Neck Neck: normal visual inspection, trachea midline and no JVD JVD: +5 Carotids: normal carotid upstroke and bounding pulses Chest Chest inspection: normal inspection of the chest, symmetric chest movement and normal respiratory effort Auscultation: Bilateral: Clear to Auscultation Cardio Palpation: normal PMI Rate: regular rate Rhythm: regular rhythm Heart sounds: S1 normal, S2 normal and normal, physiologic split S2; negative rub, gallop or murmur GI GI: normal to inspection, soft, no hepatosplenomegaly and bowel sounds present Neuro General: alert, awake, oriented x3, no focal sensory deficit, gait normal and moves all extremities Skin Skin: no rashes or lesions noted Extremities Pulses: Normal: Right Femoral Pulse, Left Femoral Pulse, Right Dorsalis Pedis Pulse, Left Dorsalis Pedis Pulse, Right Posterior Tibial Pulse, Left Posterior Tibial Pulse, Right Radial Pulse, Left Radial Pulse Lower Extremity Edema: None: Bilateral Musculoskel Musculoskeletal: No joint tenderness Psych Psychological: normal affect Assessment AND Plan 1. Atherosclerosis of [place] coronary artery of [place] heart without angina pectoris I25.10 Plan She is status post single vessel coronary to bypass surgery she continues to do well her recent stress test was reassuring and I would not recommend that we make any changes. 2. Essential hypertension I10 Plan Her blood pressure is under good control on the current medical therapy she will remain on the same with the atenolol as well as the amlodipine. 3. Pure hypercholesterolemia E78.00; E78.0 Plan She tells me she had a recent lipid profile performed through your office. Unfortunately do not have a copy her vital contrast that we will be following it carefully. If there are any issues please not hesitate to contact me. Thank you for allowing me to participate in the care of your patient. 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 transplanted heart: [place] heart Essential hypertension I10 Hypertension type: essential hypertension Pure hypercholesterolemia E78.00; E78.0 Hyperlipidemia type: pure hypercholesterolemia Coding Level of Care Code Off vis,est,level 3 Diagnoses Atherosclerosis of [place] coronary artery of [place] heart without angina pectoris I25.10 [place] vs. transplanted heart: [place] heart Essential hypertension I10 Hypertension type: essential hypertension Pure hypercholesterolemia E78.00; E78.0 Hyperlipidemia type: pure hypercholesterolemia 01/25/18 1339 <Electronically signed by Saúl Barney MD> Date Saúl Barney MD Cosigner Signature: Date (if applicable) CC: Joyce Roe Start: 01-20-2018 End: 01-20-2018 PT D/C Summary (1) Comments: See Note; NOTES: [facility] Physical Therapy Health[address] [place], [place] [address] Fax REHABILITATION SERVICES DISCHARGE SUMMARY MR#: [id number] Acct: [id number] Name: PETER MARIEE Rep #: [id number] : 1935 82 From: Sharyn Vo DPT Referring DrSydney: Trish Nieves DO Status: REG RCR Insurance: MEDICARE PART A B [employer] HP - PT D/C Summary It has been my pleasure to treat PETER MARIEE under orders from Trish Nieves DO, for the diagnosis of Bilateral Knee Pain for a total of 9 visit(s). Discharge Date: Please see the following information for a summary of their discharge status. - Subjective Subjective: Patient reports that she is doing better- she is sore when she rides in the car for along time and as well as when she is gets up from sitting for to long. Saw MD yesterday who took x-rays of her shoulder and blood work for possible inflammatory disease - Pain R knee Pain Intensity (Out of 10): 0 L knee Pain Intensity (Out of 10): 0 - Objective Objective/Function: Posture: FH, RS- increased kyphosis. Gait: no deviation noted. Stairs: asc/desc 8" recip with 1 HR. HR/TR: WNL. SLS: 30 sec without LOB. ROM: WFL. Strength: Tracy: 5/5, Knee: 4/5, Hip: 4/5 throughout Core: fair minus - Goals Goal 1:: Patient will be I with HEP and progression Goal Progress: Goal Met Goal 2:: Patient will demo 5/5 strength in LE Goal Progress: Progressing Goal 3:: Patient will maintain proper posture t/o tx session to demo increased core s/s. Goal Progress: Progressing - Plan Plan: Discharge to [facility] with yossi wallace and ashu - D/C Information If there are questions or concerns regarding this patient's physical therapy, please feel free to call me at [phone]. Thank you for the referral of this patient. Sincerely, Sharyn Vo <Electronically signed by Sharyn Vo DPT> 01/20/18 1124 CC: Trish Nieves DO; Joyce Roe MD ELR Signed Joyce Roe Start: 01-19-2018 End: 01-19-2018 Shoulder min 2 Views Comments: See Note; NOTES: [facility] Imaging Services [address] [place] [address] Shoulder min 2 Views MR#: [id number] Acct: [id number] Name: PETER MARIEE Rep #: [id number] : 1935 F 82 From: Gigi Iglesias DO PCP: Bonezzi MD,Joyce Status: REG CLI Study: Shoulder min 2 Views Date of Exam: 01/19/18 Exam# [id number] Ordering Dr: Joyce Roe MD STUDY: X-RAY - LEFT SHOULDER REASON FOR EXAM: Female, 82 years old. Pain. TECHNIQUE: 4 view(s) of the shoulder. COMPARISON: Chest, April 27, 2013. FINDINGS: Normal glenohumeral articulation. There is degenerative arthrosis of the acromioclavicular joint without inferior osseous spur formation. Normal acromion. There is no acute fracture, dislocation or destructive osseous pathology. There is demineralization of the humerus and visualized osseous structures. The soft tissue structures are unremarkable. There is interval median sternotomy. Normal visualized pulmonary apex. RAD/Shoulder min 2 Views IMPRESSION: Mild degenerative changes of the acromioclavicular joint. The findings appear unchanged from a chest film of April 27, 2013. Electronically Signed: Gigi Iglesias DO at 18:51 EDT Tel [phone], Service support , CC: Joyce Roe MD Reheater: Signed Joyce Roe Work Phone: Start: 12-22-2017 End: 12-22-2017 Inital Evaluation (1) - PT Comments: See Note; NOTES: [facility] [address] [place] [address]. [address] [place], [place] [id number] Fax REHABILITATION SERVICES INITIAL EVALUATION MR#: [id number] Acct: [id number] Name: PETER MARIEE Rep #: [id number] : 1935 82 From: Sharyn Vo DPT Referring Dr.: Trish Nieves DO Status: REG RCR Insurance: MEDICARE PART A B [employer] Patient's Visit Information PETER MARIEE is a 82 year old F referred to Physical Therapy by Trish Nieves DO with a diagnosis of Bilateral Knee Pain. Date of Evaluation: 12/22/17 Physical Therapist: Sharyn Vo - Visit Plan Frequency: 2x /Week Duration: 4 Weeks Plan: Focus on LE and core s/s - Subjective Subjective: June intial injury missed a step- saw PCP who gave her a medrol dose pack- and PT- did not get better- went to [place]- Oct 15, 2017 had another sharp and called PCP again- had MRI in [facility]- was diganosed with a gastroc strain- Saw Dr. Nieves when she got home- had an injection December 16, 2017 and was sent to PT for aquatic therapy. Patient reports that currently she has pain on the medial side of the right knee and the posterior knee. Wost: 01/13 Agg:straining it, getting down on her knees, stairs, being up on it for to long- Mostly tired and achy- Eases: rubbing it, injection Best: 10/16. Pain does radiate to the calf and into the hip. No N/T in the leg. Lives with back pain- long time- weakness in it- it comes and goes. Sleep: wakes up at night- side sleeper- does not sleep with a pillow between her knees. Before all of this started she was coming to [employer] 5 days a week-(classes, TM, equiptment). Years ago she did water classes but is not currently enrolled. X-rays and MRI of the knee/ankle. PMHx: high cholesterol, HTN, heart surgery (open heart 2013- followed by Dr. Bray). amlodipine, aspirin, atenolol,calcium carbonate 500 mg calcium, cholecalciferol (vitamin D3), glucosamine 750 dd-apmwgfsbuzy-nmc, omega 6-zvn-cpl-fish oil, - Objective Posture: FH, RS- increased kyphosis. Gait: no deviation noted. Stairs: asc/desc 8" recip with 1 HR. HR/TR: WNL. SLS: 30 sec without LOB. ROM: WFL. Strength: Trayc: 5/5, Knee: 4/5, Hip: 4/5 throughout Core: fair minus - Goals Goal 1:: Patient will be I with HEP and progression Goal Time Frame: 4-6 Weeks Goal 2:: Patient will demo 5/5 strength in LE Goal Time Frame: 4-6 Weeks Goal 3:: Patient will maintain proper posture t/o tx session to demo increased core s/s. Goal Time Frame: 4-6 Weeks - Rehabilitation Potential Physical Therapy Diagnosis: Patient presents with hypomobility- she has decreased strength, flex and muscular endurance leading to poor posture and increased pain with ADL's. Rehabilitation Potential: Good - Anticipated Interventions Patient/Client Instruction: Educate patient on: Benefits of Fitness Program For the Purpose of:: To increase tolerance to activity/condition/position Therapeutic Exercise to Include: Strength training, Endurance training, Balance training, Agility training, Body mechanics, Postural training, Flexibilty training, "In an aquatic setting", Dynamic Lumbar Stabilization For the Purpose of:: To improve muscle performance and motor function Thank you for the opportunity to evaluate your patient. For Medicare and Medicare HMO plans, please review the plan of care and approve it. It will need to be FAXED BACK to us at [phone] for Medicare purposes. Please let me know if there are questions or concerns regarding this plan of care. Physician Signature: ___Date: <Electronically signed by Sharyn Vo DPT> 12/22/17 3786 CC: Trish Nieves DO; Joyce Roe MD ELR Signed For Medicare only, by signing this I certify the plan of care. Physicians Signature Date Joyce Roe Start: 12-16-2017 End: 12-16-2017 Orthopedic Visit Report Comments: See Note; NOTES: [facility] Orthopaedics AND Sports Medicine [address] [place] [id number] OFFICE VISIT Date of Service: 12/16/17 MR#: [id number] Acct: [id number] Name: PETER MARIEE Rep #: [id number] : 1935 Provider: Trish Nieves DO Age/Sex: 82/F [place] [facility] [place] Status: Signed Intake Vital Signs12/16/17 Height 5 ft 1 in 12/16/17 Weight: 134 lb 12/16/17 Body Mass Index (BMI) 25.3 Intake Visit Reasons: RIGHT KNEE Is patient in pain?: Yes Pain scale (1-10): 4 Allergies No Known Allergies Allergy (Unverified 12/16/17 11:20) Medications amlodipine 5 mg tablet 5 mg PO QDAY #90 tab 09/01/17 [Rx] simvastatin 20 mg tablet 20 mg PO QAM #90 tab 09/01/17 [Rx] aspirin 81 mg tablet,delayed release PO 12/16/17 [History Confirmed 12/16/17] atenolol 25 mg tablet 25 mg PO ONCE 12/16/17 [History Confirmed 12/16/17] calcium carbonate 500 mg calcium (1,250 mg) tablet 500 mg PO BID tab 12/16/17 [History Confirmed 12/16/17] cholecalciferol (vitamin D3) 1,000 unit tablet 1,000 unit PO QDAY 12/16/17 [History Confirmed 12/16/17] glucosamine 750 ax-yaitmuqjudl-kwt no1 644 mg-C 30 mg-kristie 1 mg tablet tab PO 12/16/17 [History Confirmed 12/16/17] omega 0-cwp-oqk-fish oil 1,000 mg (120 mg-180 mg) capsule cap PO 12/16/17 [History Confirmed 12/16/17] PFSH Surgical History H/O: hysterectomy (Acute) coronary by pass (Acute) gallbladder removed (Acute) Family History Mother Cancer Heart disease Father Cancer Sister Cancer Daughter Cancer Social History Smoking Status: Never smoker HPI RIGHT KNEE: Details: PETER MARIEE is a 82 year old F here today referred by Dr Roe for right knee pain. Patient notes that she has had right knee pain for over 5 months. She notes that she missed a step and fell over her, catching herself. Patient has pain over her posterior and medial knee. She denies any popping and clicking. She denies any instability. She had swelling following her injury but it has improved. Patient denies any injections. She completed about 8 visits of physical therapy which was not helpful. She had xrays at [facility] and an MRI at [place] which are both here for review. She denies any pain medications. She took aleve starting Wednesday, which was not helpful. Patient took a medrol dose marilou about 5 months ago which is helpful. ROS Const Reports system reviewed and no additional complaints, except as docu Eyes Reports system reviewed and no additional complaints, except as docu ENT Reports system reviewed and no additional complaints, except as docu Card Reports system reviewed and no additional complaints, except as docu Resp Reports system reviewed and no additional complaints, except as docu GI Reports system reviewed and no additional complaints, except as docu Reports system reviewed and no additional complaints, except as docu Musc Reports joint pain Skin/Breast Reports system reviewed and no additional complaints, except as docu Neuro Yes system reviewed and no additional complaints, except as docu Psych Reports system reviewed and no additional complaints, except as docu Endo Reports system reviewed and no additional complaints, except as docu Ortho Exam Right Knee Skin/Wound: Yes CDI Contralateral Normal: Yes Swelling: Yes Homans Sign: No Knee ROM: Yes ROM-Extension -20 to 0, Yes ROM-Flexion 0-140 Examination: Yes Pain with flexion Quad Atrophy: No Office Procedures Ortho Injections Injections Yes Knee Right Details: Obtained consent for injection. Under sterile conditions, injected the patients right knee with a 10cc cocktail of 8cc bupivacaine and 2cc kenalog. The patient tolerated the injection well without any noted complication. Patient should call our office if redness develops, pain worsens or if they have any concerns. Assessment AND Plan 1. Pseudogout of left knee M11.262 Plan strengthening for her leg and working on rom in aquatic therapy would be best. for her knee swelling we discussed treatment options and patient elected to proceed with knee injection and PT. Personally reviewed the patient's medical history, medications, surgeries and recent exams if available. X-rays were reviewed. There is signs of pseudogout and calcium noted and mild gastroc strain from old injury. Educated the patient on the anatomy of the knee and etiology of her pain, she would benefit from a steroid injection today or PT and bracing. Explained that this can come on for no reason and return. If she begins to have joint pain other places she can return to her pcp for work up. She can return to exercise and gave script for aquatic PT Follow up as needed or sooner if pain, swelling, numbness or associated symptoms, or concerns develop. All questions answered. Patient in agreement of plan. Orders Orders: 2. Strain of gastrocnemius muscle of left lower extremity, initial encounter S86.112A Orders Orders: Plan Detail Other Orders Orders: Coding Level of Care Code Off vis,new,level 3 Diagnoses Pseudogout of left knee M11.262 Strain of gastrocnemius muscle of left lower extremity, initial encounter S86.112A Encounter type: initial encounter Additional Codes new patient escort.knee ([id number]) 12/16/17 1439 <Electronically signed by Trish Nieves DO> Date Trish Nieves DO Cosigner Signature: Date (if applicable) CC: Joyce Roe Start: 12-16-2017 End: 12-16-2017 Knee 4 or More Views Comments: See Note; NOTES: [facility] Imaging Services [address] [place] [address] Knee 4 or More Views MR#: [id number] Acct: [id number] Name: PETER MARIEE Rep #: [id number] : 1935 F 82 From: Jevon Pavon MD PCP: Joyce Roe MD Status: REG CLI Study: Knee 4 or More Views Date of Exam: 12/16/17 Exam# [id number] Ordering Dr: Trish Nieves DO STUDY: X-RAY - RIGHT KNEE REASON FOR EXAM: Pain, fall. TECHNIQUE: 4 view(s) of the knee. COMPARISON: None. FINDINGS: Normal visualized distal femur. Normal visualized proximal tibia and fibula. Normal proximal tibiofibular articulation. There is chondrocalcinosis of the medial meniscus and medial femoral condyle without joint space narrowing of the medial femorotibial compartment. There is chondrocalcinosis of the lateral meniscus, lateral femoral condyle and lateral tibial plateau without joint space narrowing of the lateral femorotibial compartment. Normal patellofemoral articulation. There is a small soft tissue calcification in the medial posterior aspect of the mid/distal thigh. RAD/Knee 4 or More Views IMPRESSION: Chondrocalcinosis Small soft tissue calcification in the thigh. No demonstrated fracture. Electronically Signed: Jevon Pavon MD at 14:41 EDT Tel , Service support , CC: Trish Nieves DO; Joyce Roe MD Reheater: Signed Joyce Roe Start: 09-02-2017 End: 09-02-2017 PT D/C Summary (1) Comments: See Note; NOTES: [facility] [address] [place] [address]. [address] [place] [address] Fax REHABILITATION SERVICES DISCHARGE SUMMARY MR#: [id number] Acct: [id number] Name: PETER MARIEE Rep #: [id number] : 1935 82 From: Sonny Anderson PT, ATC Referring Dr.: Joyce Roe MD Status: REG RCR Insurance: MEDICARE PART A B [employer] HP - PT D/C Summary It has been my pleasure to treat PETER MARIEE under orders from Joyce Roe, for the diagnosis of R knee pain for a total of 7 visit(s). Discharge Date: Please see the following information for a summary of their discharge status. - Subjective Subjective: Pain is about the same as it has been - Pain R knee Pain Intensity (Out of 10): 2 - Overall Improvement % Improvement: 50 - Objective Objective/Function: R knee pain 2/10. R knee ROM: 0-115. I with HEP. Pt is progressing well toward Rx goals - Goals Goal 1:: Decrease R knee pain x 50% to aid with sleep Goal Progress: Progressing Goal 2:: Increase R knee ROM x 10-15 degrees to aid with restoring normal gait Goal Progress: Progressing Goal 3:: I with HEP Goal Progress: Goal Met - Plan Plan: Discharge - D/C Information If there are questions or concerns regarding this patient's physical therapy, please feel free to call me at [phone]. Thank you for the referral of this patient. Sincerely, Sonny Anderson, PT, <Electronically signed by Sonny Anderson PT, ATC> 09/02/17 1108 CC: Joyce Roe MD [facility] Signed Joyce Roe Start: 09-02-2017 End: 09-03-2017 SCREENING MAMM (CAD), BILAT Comments: See Note; NOTES: [facility] Imaging Services [address] [place] [address] SCREENING MAMM (CAD), BILAT MR#: [id number] Acct: [id number] Name: PETER MARIEE Rep #: [id number] : 1935 F 82 From: Nemesio Dumont MD PCP: Joyce Roe MD Status: REG CL Study: SCREENING MAMM (CAD), BILAT Date of Exam: 09/02/17 Exam# [id number] Ordering Dr: Ángela Bullock MD MAMMOGRAPHY - BILATERAL SCREENING REASON FOR EXAM: Female, 82 years old. Routine annual screening examination. PERTINENT HISTORY: Patient indicates mother diagnosed at age 69 with breast cancer, maternal aunt in her 70s and daughter at age 50. Status post left excisional biopsy in 2007 for inverted nipple as well as in 1985. TECHNIQUE: Digital bilateral breast tomosynthesis (3-D mammographic acquisition) in the CC and MLO projections. Synthesized 2-D images (C-View reconstruction from tomosynthesis acquisition) providing bilateral breast CC and MLO views. CAD: Full Field Digital Mammography with Computer Added Detection was performed. COMPARISON: September 01, 2016. FINDINGS: Breast Density: C - Heterogeneously dense, which may obscure small masses. There is therefore diminished sensitivity and specificity. Increased reliance should be placed upon physical examination and close clinical follow-up. There are no dominant masses or suspicious calcifications. No other significant abnormalities are identified. HPBI/SCREENING MAMM (CAD), BILAT IMPRESSION: Stable bilateral screening mammogram. Yearly follow-up mammogram recommended. (A) ASSESSMENT CATEGORY: BIRADS Category 2: Benign. A letter regarding these results will be sent to the patient by the facility within 30 days. Approximately 10% of breast cancers are not detected by mammography. A normal mammogram should not delay biopsy of a clinically suspicious abnormality. [id number] Electronically Signed: Nemesio Dumont MD at 7:04 EST , Service support , CC: Joyce Roe MD; Ángela Bullock MD Reheater: Signed Joyce Roe Start: 08-05-2017 End: 08-05-2017 Inital Evaluation (1) - PT Comments: See Note; NOTES: [facility] Physical Therapy [address] [place] [id number] Fax REHABILITATION SERVICES INITIAL EVALUATION MR#: [id number] Acct: [id number] Name: PETER MARIEE Rep #: [id number] : 1935 82 From: Sonny Anderson PT, ATC Referring Dr.: Joyce Roe MD Status: REG RCR Insurance: MEDICARE PART A B [employer] Patient's Visit Information PETER MARIEE is a 82 year old F referred to Physical Therapy by Joyce Roe with a diagnosis of R knee pain. Date of Evaluation: 08/05/17 Physical Therapist: Sonny Anderson, PT, - Visit Plan Frequency: 2-3x /Week Duration: 4 Weeks Plan: R LE stretching and strengthening, balance and proprio, core, nustep, and HEP - Subjective Subjective: Pt reports her R knee has been sore for 5 weeks. Pt reports she stepped into a room that was one level lower and didnt know it. Pt reports she stumbled some, but didnt actually fall. Pt reports she kept ice on it intermittently throughout the day, and took a prednisone dose pack, but experienced no relief. Pt reports she was given a choice of injections or PT, so that is what has brought her here today. Pt reports the medial/post aspect of her knee is what hurts the most. Pt reports she is limited with sitting and driving at this time secondary to pain. No T or N in R LE at this time. Mild sleep diff secondary to pain. Pt reports fwd bending and stair negotiation are very limited at this time. 4/10 at rest, 8/10 at worst (squatting activity) - Pain R knee Pain Intensity (Out of 10): 4 Pain Intensity Range: 8 - Objective Neuro: B LE sensation is WNL to light touch. B pat tendon reflex= 2/3. Palpation: Pt is sore along the semitendinosis tendon of the R knee and poplitius regions. Sig crepitus with AROM. ROM: L knee 0-135; R knee 0-120. MMT: B LE's 5/5 with MMT. Special tests: - Goals Goal 1:: Decrease R knee pain x 50% to aid with sleep Goal Time Frame: 2-4 Weeks Goal 2:: Increase R knee ROM x 10-15 degrees to aid with restoring normal gait Goal Time Frame: 2-4 Weeks Goal 3:: I with HEP Goal Time Frame: 2-4 Weeks - Rehabilitation Potential Physical Therapy Diagnosis: R knee pain, weakness, and limited ROM secondary to strain of R HS muscles Rehabilitation Potential: Good - Anticipated Interventions Patient/Client Instruction: Educate patient on: Condition, Plan of Care For the Purpose of:: To improve self management Therapeutic Exercise to Include: Strength training, Endurance training, Balance training, Flexibilty training, Active ROM, Dynamic Lumbar Stabilization For the Purpose of:: To decrease pain, To increase ROM, To improve muscle performance and motor function Cryotherapy (ice pack, ice massage): Yes For the Purpose of:: To decrease pain Thank you for the opportunity to evaluate your patient. For Medicare and Medicare HMO plans, please review the plan of care and approve it. It will need to be FAXED BACK to us at [phone] for Medicare purposes. Please let me know if there are questions or concerns regarding this plan of care. Physician Signature: ___Date: <Electronically signed by Sonny Anderson PT, ATC> 08/05/17 1323 CC: Joyce Roe MD [facility] Signed For Medicare only, by signing this I certify the plan of care. Physicians Signature Date Joyce Roe Start: 03-01-2017 End: 03-01-2017 Wrist min 3 Views Comments: See Note; NOTES: [facility] Imaging Services [address] [place] [address] Verdana 4d Wrist min 3 Views MR#: [id number] Acct: [id number] Name: PETER MARIEE Rep #: [id number] : 1935 F 81 From: Laurent Arceo MD PCP: Joyce Roe MD Status: REG CLI Study: Wrist min 3 Views Date of Exam: 03/01/17 Exam# [id number] Ordering Dr: Joyce Roe MD STUDY: X-RAY - RIGHT WRIST REASON FOR EXAM: Female, 81 years old. Fall 2 weeks ago with continued wrist pain. TECHNIQUE: 3 view(s) of the wrist were obtained. COMPARISON: None. FINDINGS: There is generalized osteopenia. Normal visualized distal radius and ulna. Normal radiocarpal articulation. Normal distal radioulnar articulation. There is arthrosis of the radial carpal row. There is fusion of the capitate and hamate, a normal variant. There is degenerative arthrosis of the carpometacarpal articulation of the thumb. Normal second through fifth carpometacarpal articulations. Normal visualized metacarpal bones. There is chondrocalcinosis. RAD/Wrist min 3 Views IMPRESSION: Osteopenia with osteoarthritic changes. Chondrocalcinosis. No acute pathology. Electronically Signed: Laurent Arceo MD at 16:56 EDT , Service support , CC: Joyce Roe MD Reheater: Signed Joyce Roe Work Phone: Start: 02-08-2017 End: 02-12-2017 Nuclear Stress Test - Treadmil Comments: See Note; NOTES: [facility] Imaging Services [address] [place] [address] Verdana 4d Nuclear Stress Test - Treadmil MR#: [id number] Acct: [id number] Name: PETER MARIEE Rep #: [id number] : 1935 81 From: Saúl Barney MD Primary Care: Joyce Roe MD Status: REG CLI Ordering Dr: Saúl Barney MD Sex: F C DATE OF SERVICE: This is an exercise myocardial perfusion stress test. The patient with a history of known coronary artery disease. Resting EKG demonstrates sinus bradycardia with a rate of 52 beats per minute. Normal intervals are noted. Resting blood pressure was 118/72. STRESS TEST: The patient exercised according to a regular Abdias protocol for a total duration of 6 minutes and 40 seconds. The maximum heart rate attained was 96 beats per minute, which was 68% of maximum predicted heart rate. The maximum workload attained was 8 METs. The patient maintained sinus rhythm throughout the recording. At rest, there were no ST or T-wave changes noted to suggest ischemia. At peak exercise, upsloping ST changes only were noted, which did not meet the criteria for ischemia. No clinical angina was noted. The test was terminated due to leg fatigue and shortness of breath. The resting blood pressure was 118/72 with a peak blood pressure of 132/64. MYOCARDIAL PERFUSION PROTOCOL: 11.6 mCi of sestamibi was injected at rest. The patient exercised according to a regular Abdias protocol for 6 minutes and 40 seconds attaining 68% of maximum predicted heart rate and workload of 8 METs. At peak exercise, 31.3 mCi of sestamibi was injected. Stress images were obtained. Stress and rest images were reconstructed and compared in the short axis, vertical long and horizontal long axes. Gated images were also obtained. PERFUSION SPECT ANALYSIS: Review of the images demonstrated normal uptake of tracer noted in all areas of the myocardium. The resting images similarly demonstrated normal uptake of tracer noted in all areas of the myocardium. No areas of reversibility are noted to suggest ischemia. No previous infarct is noted. GATED SPECT ANALYSIS: The gated ejection fraction is noted to be 83%. CONCLUSION: 1. Normal exercise myocardial perfusion stress test at a moderate workload. 2. Preserved ejection fraction. 3. Blunted heart rate response to exercise. 4. No clinical angina noted. Súal Barney MD T: NTS JOB: [id number] 02/12/17 1706 <Electronically signed by Saúl Barney MD> Date Saúl Barney MD CC: Saúl Barney MD; Joyce Roe MD Date Dictated: 02/08/17 1738 Date Transcribed: 02/08/171737 Reheater: Signed Joyce Roe Start: 01-21-2017 End: 01-21-2017 JANIYA Barney MD Start: 01-21-2017 End: 01-21-2017 Follow Up Appt 1 year Saúl Barney MD Start: 01-21-2017 End: 02-09-2017 Nuclear stress test -exercise Saúl Barney MD Start: 01-21-2017 End: 01-21-2017 [employer] Saúl Barney MD Start: 01-21-2017 End: 01-21-2017 Follow Up Appt 1 year Saúl Barney MD Start: 01-21-2017 End: 02-09-2017 Nuclear stress test -exercise Saúl Barney MD Start: 12-11-2016 End: 01-14-2017 *Hepatic Function Panel [place] Start: 12-11-2016 End: 01-14-2017 Lipid 1996 panel - Serum or Plasma Saúl Barney MD Start: 12-11-2016 End: 01-14-2017 *Hepatic Function Panel [place] Start: 12-11-2016 End: 01-14-2017 Lipid panel [AGGREGATE] [place] Start: 09-01-2016 End: 09-01-2016 Bilat Scrn Digital AND CAD Comments: See Note; NOTES: [facility] Imaging Services [address] [place] [address] Verdana 4d Bilat Scrn Digital AND CAD MR#: [id number] Acct: [id number] Name: PETER MARIEE Rep #: [id number] : 1935 F 81 From: Clayton De La Rosa MD PCP: Joyce Roe MD Status: REG CLI Study: Bilat Scrn Digital AND CAD Date of Exam: 09/01/16 Exam# [id number] Ordering Dr: Joyce Roe MD MAMMOGRAPHY - BILATERAL SCREENING REASON FOR EXAM: Female, 81 years old. Routine annual screening examination. PERTINENT HISTORY: Daughter with breast cancer. Mother with breast cancer. Aunt with breast cancer. TECHNIQUE: Digital bilateral breast lotus (3D mammographic acquisition) in the CC and MLO projections. 2-D mediolateral oblique (MLO) and craniocaudad (CC) views of both breasts were obtained. CAD: Full Field Digital Mammography with Computer Added Detection was performed. COMPARISON: Comparison is made with prior study dated August 28, 2015 and August 27, 2014. FINDINGS: Breast Composition: The breasts are heterogeneously dense, which may obscure small masses. There are no dominant masses or suspicious calcifications. No other significant abnormalities are identified. There has been no significant change since the prior study. HPBI/Bilat Scrn Digital AND CAD IMPRESSION: Stable bilateral screening mammogram. Yearly follow-up mammogram recommended. (A) ASSESSMENT CATEGORY: BIRADS Category 1: Negative. A letter regarding these results will be sent to the patient by the facility within 30 days. Approximately 10% of breast cancers are not detected by mammography. A normal mammogram should not delay biopsy of a clinically suspicious abnormality. [id number] Electronically Signed: Clayton De La Rosa MD at 11:03 EST Tel [phone], Service support [phone], CC: Joyce Roe MD Reheater: Signed Joyce Roe Work Phone: Start: 09-01-2016 End: 09-01-2016 Dexa Bone Density Study (HP) Comments: See Note; NOTES: [facility] Imaging Services [address] [place] [address] Verdayuliya 4d Dexa Bone Density Study (HP) MR#: [id number] Acct: [id number] Name: PETER MARIEE Rep #: [id number] : 1935 F 81 From: Clayton De La Rosa MD PCP: Joyce Roe MD Status: REG CLI Study: Dexa Bone Density Study (HP) Date of Exam: 09/01/16 Exam# [id number] Ordering Dr: Joyce Roe MD STUDY: DUAL ENERGY X-RAY ABSORPTIOMETRY / DXA REASON FOR EXAM: Female, 81 years old. The patient is postmenopausal. Loss of height. TECHNIQUE: Bone Mineral Density (BMD) measurements of lumbar spine and bilateral hips were obtained. COMPARISON: Comparison is made with prior study dated August 19, 2010. FINDINGS: Lumbar Spine (L1-L4): g/cm2 (1.126) / T-score (-0.6) / Z-score (1.2) Findings are suggestive of normal bone density with a low fracture risk. Left Femur Total: g/cm2 (0.900) / T-score (-0.9) / Z-score (1.1) Left Femoral Neck: g/cm2 (0.823) / T-score (-1.5) / Z-score (0.6) Right Femur Total: g/cm2 (0.879) / T-score (-1.0) / Z-score (0.9) Right Femoral Neck: g/cm2 (0.875) / T-score (-1.2) / Z-score (0.9) The T-Scores on the most recent prior examination were: Lumbar Spine (L1-L4): There has been improvement of bone density since the previous examination. Left Femur Total: which represents a worsening of 4.1%. Right Femur Total: which represents a worsening of 7.7%. HPBD/Dexa Bone Density Study (HP) IMPRESSION: The patient is considered osteopenic as outlined below according to World Bruno Organization (WHO) criteria with a moderate fracture risk. There has been worsening of bone density since the previous examination. Reference Information: The T-score is the number of standard deviations above or below the standard which is normal for young adults at their peak bone mineral density. The World Health Organization (WHO) interprets the T-scores as follows: Above -1 Normal bone density Between -1 and -2.5 Osteopenia Equal to / or below -2.5 Osteoporosis As a practical clinical guideline, osteopenia may be graded as follows: Mild -1 through -1.5 Moderate -1.6 through -2.0 Severe -2.1 through -2.4 The Z-score is the number of standard deviations above or below age-matched controls. A Z-score of less than -1.5 would be considered abnormal. References: 1. NIH Osteoporosis and Related Bone Diseases http://www.osteo.org 2. International Society for Clinical Densitometry http://www.iscd.org 3. National Osteoporosis Foundation http://www.nof.org Electronically Signed: Clayton De La Rosa MD at 13:31 EST Tel [phone], Service support [phone], CC: Joyce Roe MD Reheater: Signed Joyce Roe Work Phone: Start: 06-23-2016 End: 06-23-2016 Carotid Duplex Ultrasound Comments: See Note; NOTES: [facility] Cardiovascular Services [address] [place] [address] Carotid Duplex Ultrasound 06/22/16 0931 MR#: [id number] Acct: [id number] Name: PETER MARIEE Rep #: [id number] : 1935 80 From: Daryl Murillo MD Attending Dr: Joyce Roe MD Status: REG CLI Ordering Dr: Joyce Roe MD Date: 06/22/16 Location: [facility] Sex: F C Admitted: Reason For Study: Loss of vision Rt. Velocities/BP Lt. Velocities/BP Prox CCA 83.8/13.5 cm/sec. Prox CCA 92.0/18.8 cm/sec. Mid CCA 75.0/18.2 cm/sec. Mid CCA 93.8/15.8 cm/sec. Dist CCA 66.8/14.1 cm/sec. Dist CCA 80.9/19.9 cm/sec. Prox ICA 65.7/20.5 cm/sec. Prox ICA 83.3/24.0 cm/sec. Mid ICA 71.4/20.2 cm/sec. Mid ICA 67.8/20.1 cm/sec. Dist ICA 64.4/18.4 cm/sec. Dist ICA 67.6/21.4 cm/sec. Rt. ICA/CCA = .95. Lt. ICA/CCA = .89. Prox ECA 84.4/11.1 cm/sec. Prox ECA 91.5/8.8 cm/sec. Rt. Vert. 49.1/11.0 cm/sec. Lt. Vert. 45.7/13.5 cm/sec. Right Extracranial There is intimal thickening but no significant atherosclerotic plaque noted in the right common carotid artery. There is intimal thickening but no significant atherosclerotic plaque noted in the right internal carotid artery. There is intimal thickening but no significant atherosclerotic plaque noted in the right external carotid artery. Antegrade flow is noted in the right vertebral artery. Left Extracranial There is intimal thickening but no significant atherosclerotic plaque noted in the left common carotid artery. There is homogeneous, smooth atherosclerotic plaque noted in the left internal carotid artery. There is homogeneous, smooth atherosclerotic plaque noted in the left external carotid artery. Antegrade flow is noted in the left vertebral artery. Procedure Carotid Duplex [id number]. Exam performed in department. Interpretation Summary No significant atherosclerotic plaque or stenosis noted in the right internal carotid artery. Mild (<50%) stenosis left extracranial internal carotid. Flow within the vertebral arteries is antegrade bilaterally. Ordering Physician: Joyce Roe Performed By: Maribel Barboza RVT 06/23/16 0729 Date Daryl Murillo MD CC: Joyce Roe MD Date Dictated: 06/22/1631 Date Transcribed: 06/23/16728 Reheater: Signed Joyce Roe Work Phone: Start: 06-23-2016 End: 06-23-2016 Renal Artery Duplex Comments: See Note; NOTES: [facility] Cardiovascular Services [address] [place] [address] Renal Artery Duplex Ultrasound 06/22/16 0904 MR#: [id number] Acct: [id number] Name: PETER MARIEE Rep #: [id number] : 1935 80 From: Daryl Murillo MD Attending Dr: Joyce Roe MD Status: REG CLI Ordering Dr: Joyce Roe MD Date: 06/22/16 Location: [facility] Sex: F C Admitted: Reason For Study: Renal Insufficiency Right Renal Artery Left Renal Artery Right renal artery ostium Left renal artery ostium 103.0 /20.8 154.0/35.6 RSV/EDV. PSV/EDV. Right renal artery proximal Left renal artery proximal PSV /EDV 140.0/30.4 PSV/EDV. 100.0/33.6 . Right renal artery mid 142.0/35.6 Left renal artery mid 103.0/ 25.7 PSV/EDV. PSV/EDV . Right renal artery distal Left renal artery distal 105.0 /24.4 129.0/27.1 PSV/EDV. PSV/EDV. Right RAR 1.9. Left RAR 1.3. Right Renal Parenchyma Left Renal Parenchyma Upper Pole Medula 27.8/5.6 PSV/EDV. Left upper pole medulla 27.5/ 7.9 Right upper pole medulla EDR .20 . PSV/EDV . Right upper pole medulla R.I. .80 . Left upper pole medulla EDR .29 . Upper Arsalan Cortx 21.8/4.4 PSV/EDV. Left upper pole medulla R.I. .71 . Right upper pole cortex EDR .20 . UP Cortex 26.6/5.5 PSV/EDV. Right upper pole cortex R.I. .80 . Left upper pole cortex EDR .21 . Right lower Pole medulla 25.7/6.1 Left upper pole cortex R.I. .79 . PSV/EDV . Left lower Pole medulla 26.6/ 7.0 Right lower pole medulla EDR .24 . PSV/EDV . Right lower pole medulla R.I. .76 . Left lower pole medulla EDR .26 . Lower Pole Cortex 14.6/4.8 PSV/EDV. Left lower pole medulla R.I. .74 . Right lower pole cortex EDR .33 . Lower Pole Cortx 22.6/7.3 PSV/ EDV. Right lower pole cortex R.I. .67 . Left lower pole cortex EDR .32 . Right Renal Hilar Left lower pole cortex R.I. .68 . Right Hilar avg 46.1/8.3 PSV/EDV. Left Renal Hilar Right hilar acceleration time 51 LT Hilar avg 46.4/11.9 PSV/EDV . m/sec. Left hilar acceleration time 44 Right Renal Dimensions m/sec. Right kidney size 9.4 cm . Left Renal Dimensions Right cortical dimension 1.2 cm . Left kidney size 9.7 cm . Left cortical dimension 1.3 cm . Aorta Proximal abdominal aorta 1.4 x 1.4 cm . Distal abdominal aorta 1.2 x 1.1 cm . Proximal abdominal aorta peak systolic velocity is 83.0 cm/sec . Distal abdominal aorta peak systolic velocity is 105.0 cm/sec . Interpretation Summary Dimensions of the intra-abdominal aorta appear normal, without evidence of aneurysmal dilatation. Renal artery velocities are bilaterally normal. Acceleration times are normal bilaterally. Renal- aortic ratios are also bilaterally normal. There is no evidence of hemodynamically significant renal artery stenosis on either side. Renovascular resistance appears to be bilaterally elevated . Cortical dimensions are bilaterally normal. Kidneys appear normal in size bilaterally. Ordering Physician: Joyce Roe Performed By: Maribel Barboza RVT 06/23/16721 Date Daryl Murillo MD CC: Joyce Roe MD Date Dictated: 06/22/1604 Date Transcribed: 06/23/16721 Reheater: Signed Joyce Roe Work Phone: Start: 06-18-2016 End: 06-18-2016 Kidney and Bladder Comments: See Note; NOTES: [facility] Imaging Services [address] [place] [address] Verdana 4d Kidney and Bladder MR#: [id number] Acct: [id number] Name: PETER MARIEE Rep #: [id number] : 1935 F 80 From: Gigi Iglesias DO PCP: Joyce Roe MD Status: REG CLI Study: Kidney and Bladder Date of Exam: 06/18/16 Exam# [id number] Ordering Dr: Joyce Roe MD STUDY: RENAL ULTRASOUND - COMPLETE REASON FOR EXAM: Female, 80 years old. Renal insufficiency. TECHNIQUE: Ultrasound evaluation of the kidneys was performed with real-time and static avila-scale imaging. COMPARISON: Pelvic ultrasound, June 18, 2016 FINDINGS: RIGHT KIDNEY: Normal location of the right kidney, which is normal in size. The right kidney measures 9.6 cm. There is a normal cortex of the right kidney. The renal cortex measures 1.2 cm. There is no right renal mass or cyst. There are no right renal calculi. There is no right hydronephrosis. DISTAL RIGHT URETER: There is non-visualization of the distal right ureter. There is no demonstrated right ureterovesical junction calculus. There is no demonstrated right ureteral jet. LEFT KIDNEY: Normal location of the left kidney, which is normal in size. The left kidney measures 10.0 cm. There is a normal cortex of the left kidney. The renal cortex measures 1.2 cm. There is no left renal mass or cyst. There are no left renal calculi. There is no left hydronephrosis. DISTAL LEFT URETER: There is non-visualization of the distal left ureter. There is no demonstrated left ureterovesical junction calculus. There is no demonstrated left ureteral jet. BLADDER: The bladder is nondistended. On a previous pelvic ultrasound performed the same day. The urinary bladder appeared grossly unremarkable. US/Kidney and Bladder IMPRESSION: Normal ultrasound of the kidneys. Electronically Signed: Gigi Iglesias DO at 14:38 EDT Tel [phone], Service support [phone], CC: Joyce Roe MD Reheater: Signed Joyce Roe Work Phone: Start: 06-18-2016 End: 06-18-2016 Pelvic (Non ) Comments: See Note; NOTES: [facility] Imaging Services [address] [place] [address] Verdana 4d Pelvic (Non ) MR#: [id number] Acct: [id number] Name: PETER MARIEE Rep #: [id number] : 1935 F 80 From: Gigi Iglesias DO PCP: Joyce Roe MD Status: REG CLI Study: Pelvic (Non ) Date of Exam: 06/18/16 Exam# [id number] Ordering Dr: Joyce Roe MD STUDY: ULTRASOUND OF THE FEMALE PELVIS - COMPLETE REASON FOR EXAM: Female, 80 years old. Lower abdominal tenderness. Status post hysterectomy. TECHNIQUE: Transabdominal and Transvaginal TECHNICAL QUALITY: Adequate. COMPARISON: None. FINDINGS: The uterus is surgically absent. The right ovary is not visualized. There is no visualized right adnexal mass or complex lesion. The left ovary is not visualized. There is no visualized left adnexal mass or complex lesion. There is no fluid in the cul-de-sac. The pre void volume of the bladder was 130 ml. The urinary bladder is grossly unremarkable. US/Pelvic (Non ) IMPRESSION: Status post hysterectomy. The ovaries are not seen. There is no evidence of adnexal or pelvic mass or acute abnormality. Electronically Signed: Gigi Iglesias DO at 14:31 EDT Tel [phone], Service support [phone], CC: Joyce Roe MD Reheater: Signed Joyce Roe Work Phone: Start: 01-16-2016 End: 01-16-2016 JANIYA Barney MD Start: 01-16-2016 End: 01-16-2016 Follow Up Appt 1 year Saúl Barney MD Start: 01-16-2016 End: 01-16-2016 JANIYA Barney MD Start: 01-16-2016 End: 01-16-2016 Follow Up Appt 1 year Saúl Barney MD Start: 01-10-2016 End: 01-15-2016 *Hepatic Function Panel [facility] Start: 01-10-2016 End: 01-15-2016 Lipid 1996 panel - Serum or Plasma Saúl Barney MD Start: 01-10-2016 End: 01-15-2016 *Hepatic Function Panel [facility] Start: 01-10-2016 End: 05-11-2016 Lipid panel [AGGREGATE] [facility] Start: 09-09-2015 End: 09-09-2015 Inital Evaluation - PT Comments: See Note; NOTES: [facility] [address] [place] [address] Fax REHABILITATION SERVICES INITIAL EVALUATION MR#: [id number] Acct: [id number] Name: PETER MARIEE Rep #: [id number] : 1935 80 From: Manuela Alvarado Referring Dr.: Dez FARRAR Status: DIS RCR Insurance: [employer] MEDICARE PPO Eval Date: Patient's Visit Information PETER MARIEE is a 80 year old F, referred to Physical Therapy by CHARAN Oneal,, with a diagnosis of LEFT ANKLE SPRAIN. 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 SHE REPORTS HURTING HER LEFT ANKLE AND STATES THE X- RAY SHOWED A BONE CHIP. NO SURGERY RECOMMENDED AT THIS TIME. SHE HAS AN ANKLE BRACE FROM DR. RIBEIRO THAT SHE HAS BEEN WEARING. SHE PLANS TO LEAVE FOR FLA. FOR 3 MONTHS SOON. SHE REPORTS HAVING INTERMITTENT PAIN IN HER ENTIRE LEFT ANKLE AND FOOT REGIONS RANGING 0-10/10. INCREASED PAIN TODAY FROM PROLONGED WEIGHT BEARING YESTERDAY AT A [employer]. WORSE WITH: WEIGHT BEARING. BETTER WITH: REST AND THE BRACE. - Objective THIS PATIENT AMBULATES INDEP'LY INTO PT WITH DECREASED CADANCE AND A SLOW ANTALGIC GAIT PATTERN. SHE IS LIMPING ON THE RIGHT LE AND WEARING THE BRACE SHE GOT FROM DR. RIBEIRO. LEFT ANKLE DORSIFLEXION TO NEUTRAL AND PLANTAR FLEXION TO 35 DEG. INVERSION IS 20 DEG AND EVERSION 3 DEG. SHE HAS TENDERNESS ALONG THE LATERAL MALLEOLI REGION AND INTO THE DORSUM OF THE FOOT. THE FIRST, SECOND AND THIRD METATARSALS ARE TENDER AND SHE HAS NUMBNESS IN THE FOURTH AND FIFTH TOES. THERE IS MODERATE EDEMA IN AND ABOUT THE ANKLE AND FOOT. SHE IS ABLE TO MOVE ALL OF HER TOES AND HER LEFT HIP AND KNEE STRENGHT AND ROM IS WFL. - Goals Goal 1:: DECREASE C/O LEFT ANKLE PAIN Goal Time Frame: 4-6 Weeks Goal 2:: IMPROVE WT BEARING ACTIVITIES Goal Time Frame: 4-6 Weeks Goal 3:: INDEP HEP Goal Time Frame: 4-6 Weeks - Rehabilitation Potential Rehabilitation Potential: Good - Anticipated Interventions Patient/Client Instruction: Educate patient on: Condition, Plan of Care, Risk Factors, Benefits of Fitness Program For the Purpose of:: To improve self management Therapeutic Exercise to Include: Strength training, Balance training, Gait and locomotor training, Passive ROM, Active ROM For the Purpose of:: To improve ability of physical actions for home/community/work/leisure TENS: Yes Other electric stimulation: Yes - PRE-MOD Cryotherapy (ice pack, ice massage): Yes Ultrasound (thermal/non thermal): Yes For the Purpose of:: To decrease pain, To decrease swelling/inflammation Thank you for the opportunity to evaluate your patient. For Medicare and Medicare HMO plans, please review the plan of care and approve it. It will need to be FAXED BACK to us at [phone] for Medicare purposes. Please let me know if there are questions or concerns regarding this plan of care. Physician Signature: ___Date: <Electronically signed by Manuela Alvarado > 09/09/15 1344 CC: Joyce Roe MD; Dez FARRAR PAUL Signed For Medicare only, by signing this I certify the plan of care. Physicians Signature Date Joyce Roe Start: 08-28-2015 End: 08-28-2015 Bilat Scrn Digital AND CAD Comments: See Note; NOTES: [facility] Imaging Services [address] [place] [address] Lelo 4d Bilat Scrn Digital AND CAD MR#: [id number] Acct: [id number] Name: PETER MARIEE Rep #: [id number] : 1935 F 80 From: Ni Tavarez MD PCP: Joyce Roe MD Status: REG CLI Study: Bilreji Xie Digital AND CAD Date of Exam: 08/28/15 Exam# [id number] Ordering Dr: Ángela Bullock MD MAMMOGRAPHY - BILATERAL SCREENING REASON FOR EXAM: Female, 80 years old. Routine annual screening examination. PERTINENT HISTORY: FM H X MOTHER 69,MAT AUNT 70'S, DAUGHTER 50, SISTER 79, LT EXC BX 2007 FOR INVERTED NIPPLE AND 1985, OPEN HEART SX -2013, BILAT AXILLARY SKIN TAGS MARKED TECHNIQUE: Digital examination. Mediolateral oblique (MLO) and craniocaudad (CC) views of both breasts were obtained. CAD: CAD was performed on this study. COMPARISON: MG - Breast Bilateral - 15:55 andMG - Breast Bilateral - 10:43 andMG - Breast Bilateral - 15:01 FINDINGS: Breast Composition: The breasts are heterogeneously dense, which may obscure small masses. There are no dominant masses or suspicious calcifications. No other significant abnormalities are identified. IMPRESSION: Stable bilateral screening mammogram. Yearly follow-up recommended. (A) ASSESSMENT CATEGORY: BIRADS Category 2: Benign. A letter regarding these results will be sent to the patient by the facility within 30 days. Approximately 10% of breast cancers are not detected by mammography. A normal mammogram should not delay biopsy of a clinically suspicious abnormality. [id number] Electronically Signed: Paxton Tavarez MD at 17:04 EST Tel , Service support [phone], CC: Joyce Roe MD; Ángela Bullock MD Reheater: Signed Haley Ceballos Work Phone: Start: 08-14-2015 End: 08-14-2015 Ankle min 3 Views Comments: See Note; NOTES: [facility] Imaging Services [address] [place] [address] Verdana 4d Ankle min 3 Views MR#: [id number] Acct: [id number] Name: PETER MARIEE Rep #: [id number] : 1935 F 80 From: Ivonne Morin MD PCP: Joyce Roe MD Status: REG CLI Study: Ankle min 3 Views Date of Exam: 08/14/15 Exam# [id number] Ordering Dr: Haley Ceballos DO STUDY: X-RAY - LEFT ANKLE REASON FOR EXAM: Female, 80 years old. Continued pain and swelling after twisting the ankle 2 weeks ago. Primarily lateral pain. TECHNIQUE: 3 view(s) of the ankle. COMPARISON: None. FINDINGS: Normal visualized distal tibia and fibula. Normal medial malleolus. Small fragment at the tip of the lateral malleolus of indeterminate age. Normal calcaneus. Long and slender fragment associated with the anterior surface of the distal talus. The visualized subtalar, talonavicular, calcaneocuboid and tarsal articulations are normal. Lateral and anterior soft tissue swelling. IMPRESSION: Avulsion from the tip of the lateral malleolus versus separate ossicle. Avulsion type fragment from the anterior surface of the distal talus consistent with a anterior talofibular ligament injury. Electronically Signed: Ivonne Morin MD at 17:07 EST , Service support [phone], RAD/Ankle min 3 Views IMPRESSION: Avulsion from the tip of the lateral malleolus versus separate ossicle. Avulsion type fragment from the anterior surface of the distal talus consistent with a anterior talofibular ligament injury. Electronically Signed: Ivonne Morin MD at 17:07 EST , Service support [phone], CC: Joyce Roe MD; Haley Ceballos DO Reheater: Signed Haley Elizabeth Ceballos Work Phone: Start: 07-12-2015 End: 07-12-2015 *Hepatic Function Panel [facility] Start: 07-12-2015 End: 07-12-2015 Lipid 1996 panel - Serum or Plasma Saúl Barney MD Start: 07-12-2015 End: 07-12-2015 *Hepatic Function Panel [facility] Start: 07-12-2015 End: 07-12-2015 Lipid panel [AGGREGATE] [facility] Start: 05-09-2015 End: 05-09-2015 PT Discharge Summary Comments: See Note; NOTES: [facility] [address] [place] [address]. [address] [place] [address] Fax REHABILITATION SERVICES DISCHARGE SUMMARY MR#: [id number] Acct: [id number] Name: PETER MARIEE Rep #: [id number] : 1935 79 From: Manuela Alvarado Referring DrSydney: Diana Escalera Status: DIS RCR Eval Date: Discharge Date: 05/06/15 DATE OF SERVICE: DATE OF SERVICE: May 08, 2015. This patient was referred to physical therapy by Diana Escalera NP with a diagnosis of low back pain with sciatica. She has been seen in our clinic times a total of 10 visits. Her physical therapy has mainly consisted of lumbar ultrasound treatments and therapeutic exercise and therapeutic activities. She has responded well to Camacho's extension principle of treatment. Upon presentation to physical therapy today, she reports 90 percent improvement since starting physical therapy. She reports that the side of her leg has been good. She has intermittent 0-2/10 left and central low back pain now. She has, however, still been restricting her prior level of activity. Upon examination, her lumbar movement loss is as follows: Flexion - nil, extension - moderate, bilateral side gliding - moderate. She denies pain with testing. She has a negative right, but positive left Olivier test with hip range of motion restriction. She continues to have tenderness throughout the lumbar spine, but it is mild. Press ups centralize her pain. Today, she was seen for further instruction in proper posture control, body mechanics and return to prior level of activity. She is independent with a home exercise program and all physical therapy goals have been met. Oswestry equals 22 percent. [id number]. [id number]. I am discharging her from formal physical therapy at this time and she is agreeable to discharge. Manuela Alvarado, PT T: [facility] JOB: [id number] <Electronically signed by Manuela Alvarado > 05/09/15 1518 CC: Joyce Roe MD Signed Joyce Roe Start: 04-05-2015 End: 04-05-2015 Inital Evaluation - PT Comments: See Note; NOTES: [facility] [address] [place] [address]. [address] [place], [place] [address] Fax REHABILITATION SERVICES INITIAL EVALUATION MR#: [id number] Acct: [id number] Name: PETER MAIREE Rep #: [id number] : 1935 79 From: Manuela Alvarado Referring : Diana Escalera Status: REG RCR Insurance: [employer] MEDICARE PPO Eval Date: DATE OF SERVICE: 04/03/2015 This patient was referred to physical therapy by Dr. Roe with diagnoses of sciatica and low back pain. SUBJECTIVE: This patient presents to physical therapy with complaint of left low back pain down her leg to her foot. THE PATIENT'S GOALS: To relieve the pain in my back and left leg and foot. WORK/LEISURE: Retired. The patient reports that she is a [employer] [facility] member and exercises approximately 4 mornings a week including walking on the treadmill, doing yoga and taking [employer] senior strength class. PRESENT SYMPTOMS: Left low back pain ranging 2-10/10, left thigh pain ranging 2-10/10, left leg pain ranging 2-10/10, left knee pain 0-10+/10 and left foot pain 2-10/10. She also reports intermittent left leg and foot "burning." DATE OF ONSET: Approximately 2 weeks ago. CURRENT STATUS: Improving. CAUSE: No apparent reason. SYMPTOMS AT ONSET: Left back. WORSE WITH: Bending, sometimes sitting, rising from sitting, standing, lying, twisting, getting up from bed, being on the move "it hurts to move." BETTER WITH: Sitting and when still. DISTURBED SLEEP: Yes. YEAR OF FIRST EPISODE: 5 years ago. PREVIOUS TREATMENTS: Pain pills. TREATMENTS THIS EPISODE: Vicodin (which did not help) and prednisone, which did help. COUGHING/SNEEZING/STRAINING: Negative. GAIT: Normal. DIFFICULTY INITIATING URINATION: No. IMAGING: Lumbar x-ray revealing an issue at L4-L5. PAST MEDICAL HISTORY: ACCIDENTS: No. UNEXPLAINED WEIGHT LOSS: No. RECENT OR MAJOR SURGERY: Heart bypass surgery in 2014. OTHER: High blood pressure and history of neck pain. OBJECTIVE: POSTURE: Sitting: Fair. Standing: Fair. Lordosis: Reduced. Lateral shift: Nil. Relevant: N/A. Correction of posture: Better. NEUROLOGICAL: Motor deficit: Bilateral lower extremity strength is 5/5 with manual muscle testing. Sensory deficit: Decreased light touch sensation of the left lateral leg compared to the right. Reflexes: Bilateral lower extremity reflexes 1/2. Dural signs: Negative bilaterally. LUMBAR MOVEMENT LOSS: Flexion: Nil. Extension: Moderate. Right side gliding: Major. Left side gliding: Major. PAIN WITH RANGE OF MOTION TESTING: Left side gliding. CORE STRENGTH: Poor. PALPATION: The patient does not have tenderness with palpation of the lumbar spinous processes or sacrum, but she does have increased muscle tone of the bilateral lumbar paraspinals. SPECIAL TESTS: Olivier left positive. Olivier right negative. ASSESSMENT: This patient is a 79-year-old female with complaint of left back and lower extremity symptoms that started about 2 weeks ago for no apparent reason. Oswestry equals 42%, [id number], [id number]. GOALS: 1. Decrease complaint of low back pain. 2. Decrease complaint of left lower extremity symptoms. 3. Improve bending, sitting, rising from sitting, standing, lying, transfer and sleep function. 4. Instruct in prophylaxis. PLAN: We plan to see this patient 3 times a week x3-4 weeks for lumbar ultrasound treatments, soft tissue mobilization, dynamic lumbar stabilization exercise instruction, posture correction, instruction in proper body mechanics and instruction in appropriate independent exercise modifications for continued participation as a [employer] member here at [facility]. She was agreeable with this plan of care. Manuela Alvarado, PT T: [facility] JOB: [id number] <Electronically signed by Manuela Alvarado > 04/05/15 1428 CC: Signed For Medicare only, by signing this I certify the plan of care. Physicians Signature Date Joyce Roe Start: 03-29-2015 End: 03-29-2015 L/S Spine Min 4 Views Comments: See Note; NOTES: [facility] Imaging Services [address] [place] [address] Radiology Report MR#: [id number] Acct: [id number] Name: PETER MARIEE Rep #: [id number] : 1935 F 79 From: Gigi Iglesias DO PCP: Joyce Reo MD Status: REG CLI Study: L/S Spine Min 4 Views Date of Exam: 03/29/15 Exam# [id number] Ordering Dr: Joyce Roe MD STUDY: X-RAY - LUMBAR SPINE REASON FOR EXAM: Female, 79 years old. Back pain with right radiculopathy. TECHNIQUE: view(s) of the lumbar spine were obtained. COMPARISON: None FINDINGS: Normal lumbar lordosis. There is minimal levoscoliosis with convexity at L3-4. There is anterolisthesis of L4 on L5 of 3 mm. The alignment is otherwise preserved. Normal vertebral bodies and endplates. There is minimal disc space narrowing, most marked at L4-5 and L5-S1. There is no evidence of acute fracture or loss of vertebral axial height. There is degenerative facet disease without demonstrated spondylolysis of the pars interarticulares. There is atherosclerotic calcification of the abdominal aorta without a demonstrated aneurysm. Cholecystectomy clips are seen in the right upper quadrant. IMPRESSION: Degenerative changes of the spine, as detailed above. Electronically Signed: Gigi Iglesias DO at 14:36 EDT Tel [phone], Service support [phone], RAD/L/S Spine Min 4 Views IMPRESSION: Degenerative changes of the spine, as detailed above. Electronically Signed: Gigi Iglesias DO at 14:36 EDT Tel [phone], Service support [phone], CC: Joyce Roe MD Reheater: Signed Joyce Roe Work Phone: Start: 01-15-2015 End: 01-15-2015 JANIYA Barney MD Start: 01-15-2015 End: 01-16-2015 Documentation of current medications Saúl Barney MD Start: 01-15-2015 End: 01-15-2015 Follow Up Appt 1 year Saúl Barney MD Start: 01-15-2015 End: 01-15-2015 JANIYA Barney MD Start: 01-15-2015 End: 01-16-2015 Documentation of current medications Saúl Barney MD Start: 01-15-2015 End: 01-15-2015 Follow Up Appt 1 year Saúl Barney MD Start: 01-08-2015 End: 01-09-2015 *Hepatic Function Panel [facility] Start: 01-08-2015 End: 01-09-2015 Lipid 1996 panel - Serum or Plasma Saúl Barney MD Start: 01-08-2015 End: 01-09-2015 *Hepatic Function Panel [facility] Start: 01-08-2015 End: 01-09-2015 Lipid panel [AGGREGATE] [facility] Start: 08-27-2014 End: 08-27-2014 Bilat Scrn Digital AND CAD Comments: See Note; NOTES: [facility] Imaging Services [address] [place] [address] Breast Imaging Report MR#: [id number] Acct: [id number] Name: PETER MARIEE Rep #: [id number] : 1935 F 79 From: Ruddy Hicks MD PCP: Joyce Roe MD Status: [facility] CLI Study: Bilat Scrn Digital AND CAD Date of Exam: 08/27/14 Exam# [id number] Ordering Dr: Ángela Bullock MD MAMMOGRAPHY - BILATERAL SCREENING REASON FOR EXAM: Female, 79 years old. Routine annual screening examination. PERTINENT HISTORY: Strong family history, breast cancer in mother, maternal and daughter TECHNIQUE: Digital examination. Mediolateral oblique (MLO) and craniocaudad (CC) views of both breasts were obtained. CAD: CAD was performed on this study. COMPARISON: 08/23/13 FINDINGS: Breast Composition: The breasts are heterogeneously dense, which may obscure small masses. There are no dominant masses or suspicious calcifications. Stable scattered benign calcifications. No other significant abnormalities are identified. There has been no significant change since the prior study. IMPRESSION: Stable bilateral screening mammogram. Yearly follow-up recommended. (A) ASSESSMENT CATEGORY: BIRADS Category 2: Benign. A letter regarding these results will be sent to the patient by the facility within 30 days. BR2 Approximately 10% of breast cancers are not detected by mammography. A normal mammogram should not delay biopsy of a clinically suspicious abnormality. Electronically Signed: Didier Hicks MD at 15:59 EST , Service support [phone], CC: Joyce Roe MD; Ángela Bullock MD Reheater: Signed Haley Ceballos Work Phone: Start: 07-13-2014 End: 07-13-2014 Follow Up Appt 6 months [facility] Start: 07-13-2014 End: 07-13-2014 ARLETH Barney MD Start: 07-13-2014 End: 07-13-2014 Follow Up Appt 6 months [facility] Start: 07-13-2014 End: 07-13-2014 ARLETH Barney MD Start: 07-06-2014 End: 07-06-2014 *Hepatic Function Panel Eileen Mendez PA-C Work Phone: Start: 07-06-2014 End: 07-06-2014 Lipid 1996 panel - Serum or Plasma Eileen Mendez PA-C Work Phone: Start: 07-06-2014 End: 07-06-2014 *Hepatic Function Panel Eileen Mendez PA-C Work Phone: Start: 07-06-2014 End: 07-06-2014 Lipid panel [AGGREGATE] Eileen Mendez PA-C Work Phone: Start: 01-17-2014 End: 01-08-2015 *Hepatic Function Panel [facility] Start: 01-17-2014 End: 01-18-2014 JANIYA Barney MD Start: 01-17-2014 End: 01-18-2014 Ecg routine ecg w/least 12 lds w/i&r Saúl Barney MD Start: 01-17-2014 End: 01-18-2014 Follow Up Appt 4 months [facility] Start: 01-17-2014 End: 01-08-2015 Lipid 1996 panel - Serum or Plasma Saúl Barney MD Start: 01-17-2014 End: 01-18-2014 JANIYA Barney MD Start: 01-17-2014 End: 01-18-2014 Electrocardiogram, complete Saúl Barney MD Start: 01-17-2014 End: 01-18-2014 Follow Up Appt 4 months [facility] Start: 01-16-2014 End: 01-08-2015 *Hepatic Function Panel [facility] Start: 01-16-2014 End: 01-08-2015 Lipid panel [AGGREGATE] [facility] Start: 01-16-2014 End: 01-16-2014 *Hepatic Function Panel Eileen Mendez PA-C Work Phone: Start: 01-16-2014 End: 01-16-2014 Lipid panel [AGGREGATE] Elieen Mendez PA-C Work Phone: Start: 01-01-2014 End: 01-16-2016 Cardiac Rehab Saúl Barney MD Start: 01-01-2014 End: 01-16-2016 Cardiac Rehab Saúl Barney MD Start: 11-22-2013 History of coronary artery bypass grafting H/O coronary artery bypass surgery Dr. Saúl Barney MD Comment on above: CABG x1 JOHN-LAD 11/22/2013 Start: 09-06-2013 End: 09-06-2013 Aortocoronary bypass of one coronary artery BARBER Lowery Comment on above: stent 1999 with NE Start: 09-01-2013 End: 09-01-2013 [employer] Eileen Mendez PA-C Work Phone: Start: 09-01-2013 End: 09-01-2013 Follow Up Appt 6 months Eileen Mendez PA-C Work Phone: Start: 09-01-2013 End: 09-01-2013 JANIYA Mendez PA-C Work Phone: Start: 09-01-2013 End: 09-01-2013 Follow Up Appt 6 months Eileen Mendez PA-C Work Phone: Start: 08-06-2013 End: 08-31-2013 *Hepatic Function Panel [facility] Start: 08-06-2013 End: 08-31-2013 Lipid 1996 panel - Serum or Plasma Saúl Barney MD Start: 08-06-2013 End: 08-31-2013 *Hepatic Function Panel [facility] Start: 08-06-2013 End: 08-31-2013 Lipid panel [AGGREGATE] [facility] Start: 04-27-2013 End: 05-02-2013 Ambulatory BP Monitor 24 HR Saúl Barney MD Start: 04-27-2013 End: 05-02-2013 Ambulatory BP Monitor 24 HR Saúl Barney MD Start: 03-31-2013 End: 03-31-2013 Follow Up Appt 6 months [facility] Start: 03-31-2013 End: 03-31-2013 MMlE Barney MD Start: 03-31-2013 End: 08-16-2013 Nuclear stress test -exercise Saúl Barney MD Start: 03-31-2013 End: 03-31-2013 Follow Up Appt 6 months [facility] Start: 03-31-2013 End: 03-31-2013 MMEl Barney MD Start: 03-31-2013 End: 08-16-2013 Nuclear stress test -exercise Saúl Barney MD Start: 02-04-2013 End: 03-03-2013 *Hepatic Function Panel [facility] Start: 02-04-2013 End: 03-03-2013 Lipid 1996 panel - Serum or Plasma Saúl Barney MD Start: 02-04-2013 End: 03-03-2013 *Hepatic Function Panel [facility] Start: 02-04-2013 End: 03-03-2013 Lipid panel [AGGREGATE] [facility] Start: 08-06-2012 End: 08-24-2012 *Hepatic Function Panel [facility] Start: 08-06-2012 End: 08-24-2012 Lipid 1996 panel - Serum or Plasma Saúl Barney MD Start: 08-06-2012 End: 08-24-2012 *Hepatic Function Panel [facility] Start: 08-06-2012 End: 08-24-2012 Lipid panel [AGGREGATE] [facility] Start: 03-02-2012 End: 03-02-2012 Follow Up Appt 1 year Dayan Hernandez RN Start: 03-02-2012 End: 03-02-2012 Follow Up Appt 1 year Dayan Hernandez RN Start: 02-24-2012 End: 02-24-2012 *Hepatic Function Panel [facility] Start: 02-24-2012 End: 02-24-2012 Lipid 1996 panel - Serum or Plasma Saúl Barney MD Start: 02-24-2012 End: 02-24-2012 *Hepatic Function Panel [facility] Start: 02-24-2012 End: 02-24-2012 Lipid panel [AGGREGATE] [facility] Appendectomy BARBER Lowery Comment on above: 1985 Appendectomy BARBER Lowery Comment on above: 1985 Appendectomy Joyce Roe Work Phone: Comment on above: 1985 Appendectomy BARBER Lowery Comment on above: 1985 Appendectomy Juaquin Franco Comment on above: 1985 breast nodule remova l benign BARBER Lowery Comment on above: history of 3 biopsy negative after nippl e inversion, last one 2005 breast nodule remova l benign BARBER Lowery Comment on above: history of 3 biopsy negative after nippl e inversion, last one 2006 breast nodule remova l benign Joyce Roe Work Phone: Comment on above: history of 3 biopsy negative after nippl e inversion, last one 2005 breast nodule remova l benign BARBER Lowery Comment on above: history of 3 biopsy negative after nippl e inversion, last one 2006 breast nodule remova l benign Juaquin Franco Comment on above: history of 3 biopsy negative after nippl e inversion, last one 2005 Cataract extraction and insertion of intraocular lens BARBER Lowery Comment on above: bilaterally Cataract extraction and insertion of intraocular lens BARBER Lowery Comment on above: bilaterally Cataract extraction and insertion of intraocular lens Joyce Roe Work Phone: Comment on above: bilaterally Cataract extraction and insertion of intraocular lens BARBER Lowery Comment on above: bilaterally Cataract extraction and insertion of intraocular lens Juaquin Franco Comment on above: bilaterally Cataract extraction and insertion of intraocular lens BARBER Lowery LPN Cataract extraction and insertion of intraocular lens Joyce Roe MD Work Phone: Cataract extraction and insertion of intraocular lens Ruth Jonathan C[employer]OM WOOD [employer]AIR BUILDER Cataract extraction and insertion of intraocular lens Marianela Brown LPN Cataract extraction and insertion of intraocular lens Joyce Roe MD Work Phone: Cataract extraction and insertion of intraocular lens Chantelle Manadek INDUCTION COORDINATION POWER ENGINEER Cataract extraction and insertion of intraocular lens Chantelle Manadek INDUCTION COORDINATION POWER ENGINEER Cataract extraction and insertion of intraocular lens Tamera Sanchez MA Cataract extraction and insertion of intraocular lens Ruth Jonathan CUSTOM WOOD STAIR BUILDER Cataract extraction and insertion of intraocular lens Ruth Jonathan CUSTOM WOOD STAIR BUILDER Cataract extraction and insertion of intraocular lens Ruth Jonathan CUSTOM WOOD STAIR BUILDER cholecytectomy BARBER Jerrell l cholecytectomy BARBER Jerrell l cholecytectomy Joyce Welch i Work Phone: cholecytectomy BARBER Jerrell l cholecytectomy Juaquin Franco JYOTI no BSO DUB 40's BARBER R ussell JYOTI no BSO DUB 40's BARBER R ussell JYOTI no BSO DUB 40's Joyce nam Work Phone: JYOTI no BSO DUB 40's BARBER R ussell JYOTI no BSO DUB 40's Juaquin Franco LP N BARBER Sebastián VACAN Joyce Roe MD Work Phone: Ruthdrea Bensonman L PN Marianela Brown LP N Joyce Roe MD Work Phone: Chantelle Manadek INDUCTION COORDINATION POWER ENGINEER Chantelle Manchak INDUCTION COORDINATION POWER ENGINEER Tamera Sanchez MA Ruth Jonathan L PN Ruth Jonathan L PN Ruth Jonathan L PN Plan of Treatment Date Care Activity Detail Author Start: 09-30-2027 Diabetes Screening Diabetes Screening [facility] Start: 05-07-2025 Influenza vaccination Influenza Vaccine (#1) [facility] Start: 03-23-2025 End: 03-23-2025 Patient encounter procedure 03/23/2025 10:00 AM EDT Office Visit [facility] [address] [place] [id number] Jerzy Glass MD [address] [place] [address] f/u after MRI [facility] Comment on above: f/u after MRI Start: 03-16-2025 End: 03-16-2025 Patient encounter procedure 03/16/2025 10:00 AM EDT Appointment Radiology [address] [place] [address] Dx: Intracranial meningioma (HCC) [D32.0] Radiology Comment on above: Dx: Intracranial meningioma (HCC) [D32.0 ] Start: 10-17-2024 End: 10-17-2024 Patient encounter procedure 10/17/2024 9:45 AM EST Office Visit [facility] [address] [id number] Jerzy Glass [facility] [address] [place] [place] [address] Intracranial meningioma (HCC) [D32.0] [facility] Comment on above: Intracranial meningioma (HCC) [D32.0] Start: 09-29-2024 Colonoscopy w/biopsy single/multiple COLONOSCOPY AND BIOPSY [facility] Start: 09-29-2024 Patient discharge [facility] Start: 09-06-2024 Advance Directive Discussion Advance Directive Discussion [facility] Start: 05-07-2024 Covid-19 Vaccine ( season) Covid-19 Vaccine () [facility] Start: 05-07-2024 COVID-19 Vaccine () COVID-19 Vaccine () [facility] Start: 05-07-2024 Covid-19 Vaccine () Covid-19 Vaccine () [facility] Start: 05-07-2024 Influenza vaccination Influenza Vaccine (#1) [facility] Start: 07-05-2023 [facility] Work Phone: Start: 07-05-2023 Lipid panel [facility]; [facility] Work Phone: Start: 07-05-2023 Blood count manual cell count each [facility]; [facility] Work Phone: Start: 07-05-2023 Procedure Education [facility]; [facility] Work Phone: Start: 03-04-2023 Procedure Education [facility]; [facility] Work Phone: Start: 03-04-2023 C-reactive protein high sensitivity [facility]; [facility] Work Phone: Start: 03-04-2023 Sedimentation rate rbc non-automated [facility]; [facility] Work Phone: Start: 01-18-2023 Procedure Education [facility]; [facility] Work Phone: Start: 12-31-2022 Procedure Education [facility]; [facility] Work Phone: Start: 12-31-2022 Assay of homocysteine [facility]; [facility] Work Phone: Start: 06-30-2022 Procedure Education [facility]; [facility] Work Phone: Start: 06-30-2022 Urnls dip stick/tablet reagent auto microscopy [facility]; [facility] Work Phone: Start: 06-30-2022 Urine albumin quantitative [facility]; [facility] Work Phone: Start: 06-30-2022 25 hydroxy includes fractions if performed [facility] Work Phone: Start: 06-30-2022 Comprehensive metabolic panel [facility]; [facility] Work Phone: Start: 06-30-2022 Lipid panel [facility]; [facility] Work Phone: Start: 06-08-2022 Renal function panel [facility]; [facility] Work Phone: Start: 05-04-2022 Procedure Education [facility]; [facility] Work Phone: Start: 03-23-2022 Comprehensive metabolic panel [facility]; [facility] Work Phone: Start: 12-25-2021 Procedure Education [facility]; [facility] Work Phone: Start: 12-25-2021 Basic metabolic panel calcium total [facility]; [facility] Work Phone: Start: 08-11-2021 Organic acid 1 quantitative [facility]; [facility] Work Phone: Start: 08-11-2021 Cyanocobalamin vitamin b-12 [facility]; [facility] Work Phone: Start: 08-11-2021 Basic metabolic panel calcium total [facility]; [facility] Work Phone: Start: 06-24-2021 Sars-cov-2 antibody [facility]; [facility] Work Phone: Start: 06-24-2021 Assay of gammaglobulin ige [facility]; [facility] Work Phone: Start: 06-17-2021 Lipid panel [facility]; [facility] Work Phone: Start: 06-17-2021 Comprehensive metabolic panel [facility]; [facility] Work Phone: Start: 06-17-2021 Assay of homocysteine [facility]; [facility] Work Phone: Start: 06-17-2021 C-reactive protein high sensitivity [facility]; [facility] Work Phone: Start: 06-03-2021 Comprehensive metabolic panel [facility]; [facility] Work Phone: Start: 06-03-2021 Lipoprotein (a) [facility]; [facility] Work Phone: Start: 06-28-2020 Procedure Education [facility] Work Phone: Start: 06-28-2020 Provider Instructions for Treatment [facility] Work Phone: Start: 06-28-2020 Urine albumin quantitative [facility] Work Phone: Start: 06-28-2020 Comprehensive metabolic panel [facility] Work Phone: Start: 06-28-2020 Lipid panel [facility] Work Phone: Start: 06-28-2020 Blood count manual cell count each [facility] Work Phone: Start: 06-28-2020 Cobalamin (Vitamin B12) [Mass/Vol] VITAMIN B12 AND FOLATES (43170) [facility] Work Phone: Start: 06-28-2020 Assay of homocysteine Homocysteine, Plasma (85885) [facility] Work Phone: Start: 01-30-2020 Renal function panel [facility] Work Phone: Start: 01-30-2020 C-reactive protein high sensitivity [facility] Work Phone: Start: 07-14-2019 Urine albumin quantitative MICROALBUMIN: CREATININE RATIO (13434) AND (94657) [facility] Work Phone: Start: 07-14-2019 Urinalysis qual/semiquant except immunoassays URINALYSIS (36287) [facility] Work Phone: Start: 07-14-2019 HbA1c (Bld) [Mass fraction] HGB A1C (01251) [facility] Work Phone: Start: 07-14-2019 25 hydroxy includes fractions if performed CALCIFIDIOL (47262) VIT D 25 [facility] Work Phone: Start: 07-14-2019 Comprehensive metabolic panel Metabolic Panel, Comprehensive (60501) [facility] Work Phone: Start: 07-14-2019 Blood count manual cell count each CBC WITH MANUAL DIFF (45728) [facility] Work Phone: Start: 07-14-2019 Ferritin [Mass/Vol] Ferritin (97854) [facility] Work Phone: Start: 07-14-2019 Lipoprotein blood silvia numbers & subclasses NMR Profile (05554) [facility] Work Phone: Start: 07-14-2019 Assay of homocysteine Homocysteine, Plasma (15852) [facility] Work Phone: Start: 04-01-2019 Shingrix Vaccine (3 of 3) Shingrix Vaccine (3 of 3) [facility] Start: 04-01-2019 Zoster Vaccines (3 of 3) Zoster Vaccines (3 of 3) [facility] Start: 02-02-2019 Assay of homocysteine [facility] Work Phone: Start: 08-01-2018 Assay of homocysteine Homocysteine, Plasma (22038) [facility] Work Phone: Start: 08-01-2018 Urnls dip stick/tablet reagent auto microscopy URINALYSIS, W/ MICRO (68389) [facility] Work Phone: Start: 08-01-2018 Comprehensive metabolic panel METABOLIC PANEL, COMPREHENSIVE (40379) [facility] Work Phone: Start: 08-01-2018 Protein mass conc LIPOPROTEIN, BLD, BY NMR (14605) [facility] Work Phone: Start: 08-01-2018 Blood count manual cell count each CBC with auto diff (90148) [facility] Work Phone: Start: 07-11-2018 Urine albumin quantitative MICROALBUMIN: CREATININE RATIO (69573) AND (96532) [facility] Work Phone: Start: 07-11-2018 Urinalysis qual/semiquant except immunoassays URINALYSIS (39708) [facility] Work Phone: Start: 07-11-2018 Blood count manual cell count each CBC WITH MANUAL DIFF (10016) [facility] Work Phone: Start: 07-11-2018 Comprehensive metabolic panel Metabolic Panel, Comprehensive (72044) [facility] Work Phone: Start: 01-25-2018 End: 01-25-2018 Appointment Appointment [facility] Work Phone: Start: 01-25-2018 End: 01-25-2018 Appointment Appointment [facility] Work Phone: Start: 07-16-2017 End: 01-23-2017 *Hepatic Function Panel *Hepatic Function Panel [facility] Work Phone: Start: 07-16-2017 End: 01-23-2017 Lipid panel [AGGREGATE] *Lipid Profile CC PCP [facility] Work Phone: Start: 07-16-2017 End: 01-23-2017 *Hepatic Function Panel *Hepatic Function Panel [facility] Work Phone: Start: 07-16-2017 End: 01-23-2017 Lipid panel [AGGREGATE] *Lipid Profile CC PCP [facility] Work Phone: Start: 03-18-2017 Procedure Education [facility] Work Phone: Start: 01-26-2017 Assay of thyroid stimulating hormone tsh [facility]; [facility] Work Phone: Start: 01-26-2017 Thyrotropin Qn TSH (57347) [facility] Work Phone: Start: 01-26-2017 Urnls dip stick/tablet reagent auto microscopy [facility] Work Phone: Start: 01-26-2017 Urine albumin quantitative [facility] Work Phone: Start: 01-26-2017 Comprehensive metabolic panel [facility] Work Phone: Start: 01-26-2017 Lipoprotein blood silvia numbers & subclasses [facility]; [facility] Work Phone: Start: 01-26-2017 Protein mass conc LIPOPROTEIN, BLD, BY NMR (80491) [facility] Work Phone: Start: 01-26-2017 Blood count manual cell count each [facility] Work Phone: Start: 01-21-2017 End: 01-21-2017 GLOBAL VP CREATIVE + CONTENT MARKETING GLOBAL VP CREATIVE + CONTENT MARKETING [facility] Work Phone: Start: 01-21-2017 End: 01-21-2017 Follow Up Appt 1 year Follow Up Appt 1 year [facility] Work Phone: Start: 01-21-2017 End: 01-21-2017 Nuclear stress test -exercise Nuclear stress test -exercise [facility] Work Phone: Start: 01-21-2017 End: 01-21-2017 Appointment Appointment [facility] Work Phone: Start: 01-21-2017 End: 01-21-2017 GLOBAL VP CREATIVE + CONTENT MARKETING GLOBAL VP CREATIVE + CONTENT MARKETING [facility] Work Phone: Start: 01-21-2017 End: 01-21-2017 Follow Up Appt 1 year Follow Up Appt 1 year [facility] Work Phone: Start: 01-21-2017 End: 01-21-2017 Nuclear stress test -exercise Nuclear stress test -exercise [facility] Work Phone: Start: 12-11-2016 End: 01-14-2017 *Hepatic Function Panel *Hepatic Function Panel [facility] Work Phone: Start: 12-11-2016 End: 01-14-2017 Lipid panel [AGGREGATE] *Lipid Profile CC PCP [facility] Work Phone: Start: 12-11-2016 End: 01-14-2017 *Hepatic Function Panel *Hepatic Function Panel [facility] Work Phone: Start: 12-11-2016 End: 01-14-2017 Lipid panel [AGGREGATE] *Lipid Profile CC PCP [facility] Work Phone: Start: 08-27-2016 Procedure Education [facility] Work Phone: Start: 08-27-2016 Comprehensive metabolic panel [facility] Work Phone: Start: 08-27-2016 Lipoprotein blood silvia numbers & subclasses [facility]; [facility] Work Phone: Start: 08-27-2016 Protein mass conc LIPOPROTEIN, BLD, BY NMR (80290) [facility] Work Phone: Start: 06-12-2016 Provider Instructions for Treatment [facility] Work Phone: Start: 06-12-2016 Protein mass conc (U) Urine Protein Electrophoresis (UPEP) (48716) [facility] Work Phone: Start: 06-12-2016 Protein electrophoretic fractj&quantj serum [facility] Work Phone: Start: 06-12-2016 Protein mass conc Serum Protein Electrophoresis (SPEP) (27512) [facility] Work Phone: Start: 01-16-2016 End: 01-16-2016 GLOBAL VP CREATIVE + CONTENT MARKETING GLOBAL VP CREATIVE + CONTENT MARKETING [facility] Work Phone: Start: 01-16-2016 End: 01-16-2016 Follow Up Appt 1 year Follow Up Appt 1 year [facility] Work Phone: Start: 01-16-2016 End: 01-16-2016 GLOBAL VP CREATIVE + CONTENT MARKETING GLOBAL VP CREATIVE + CONTENT MARKETING [facility] Work Phone: Start: 01-16-2016 End: 01-16-2016 Follow Up Appt 1 year Follow Up Appt 1 year [facility] Work Phone: Start: 01-10-2016 End: 01-15-2016 *Hepatic Function Panel *Hepatic Function Panel [facility] Work Phone: Start: 01-10-2016 End: 01-15-2016 Lipid panel [AGGREGATE] *Lipid Profile CC PCP [facility] Work Phone: Start: 01-10-2016 End: 01-15-2016 *Hepatic Function Panel *Hepatic Function Panel [facility] Work Phone: Start: 01-10-2016 End: 01-15-2016 Lipid panel [AGGREGATE] *Lipid Profile CC PCP [facility] Work Phone: Start: 08-14-2015 Procedure Education [facility] Work Phone: Start: 07-12-2015 End: 07-12-2015 *Hepatic Function Panel *Hepatic Function Panel [facility] Work Phone: Start: 07-12-2015 End: 07-12-2015 Lipid panel [AGGREGATE] *Lipid Profile CC PCP [facility] Work Phone: Start: 07-12-2015 End: 07-12-2015 *Hepatic Function Panel *Hepatic Function Panel [facility] Work Phone: Start: 07-12-2015 End: 07-12-2015 Lipid panel [AGGREGATE] *Lipid Profile CC PCP [facility] Work Phone: Start: 06-07-2015 Patient Education [facility] Work Phone: Start: 01-15-2015 End: 01-15-2015 GLOBAL VP CREATIVE + CONTENT MARKETING GLOBAL VP CREATIVE + CONTENT MARKETING [facility] Work Phone: Start: 01-15-2015 End: 01-15-2015 Follow Up Appt 1 year Follow Up Appt 1 year [facility] Work Phone: Start: 01-15-2015 End: 01-15-2015 GLOBAL VP CREATIVE + CONTENT MARKETING GLOBAL VP CREATIVE + CONTENT MARKETING [facility] Work Phone: Start: 01-15-2015 End: 01-15-2015 Follow Up Appt 1 year Follow Up Appt 1 year [facility] Work Phone: Start: 01-10-2015 Provider Instructions for Treatment [facility] Work Phone: Start: 01-08-2015 End: 01-09-2015 *Hepatic Function Panel *Hepatic Function Panel [facility] Work Phone: Start: 01-08-2015 End: 01-09-2015 Lipid panel [AGGREGATE] *Lipid Profile CC PCP [facility] Work Phone: Start: 01-08-2015 End: 01-09-2015 *Hepatic Function Panel *Hepatic Function Panel [facility] Work Phone: Start: 01-08-2015 End: 01-09-2015 Lipid panel [AGGREGATE] *Lipid Profile CC PCP [facility] Work Phone: Start: 07-13-2014 End: 07-13-2014 Follow Up Appt 6 months Follow Up Appt 6 months [facility] Work Phone: Start: 07-13-2014 End: 07-13-2014 MMM MMM [facility] Work Phone: Start: 07-13-2014 End: 07-13-2014 Follow Up Appt 6 months Follow Up Appt 6 months [facility] Work Phone: Start: 07-13-2014 End: 07-13-2014 MMM MMM [facility] Work Phone: Start: 07-07-2014 End: 07-06-2014 *Hepatic Function Panel *Hepatic Function Panel [facility] Work Phone: Start: 07-07-2014 End: 07-06-2014 Lipid panel [AGGREGATE] *Lipid Profile CC PCP [facility] Work Phone: Start: 07-07-2014 End: 07-06-2014 *Hepatic Function Panel *Hepatic Function Panel [facility] Work Phone: Start: 07-07-2014 End: 07-06-2014 Lipid panel [AGGREGATE] *Lipid Profile CC PCP [facility] Work Phone: Start: 07-03-2014 Patient Education [facility] Work Phone: Start: 06-06-2014 Patient Education [facility] Work Phone: Start: 06-06-2014 Provider Instructions for Treatment [facility] Work Phone: Start: 04-27-2014 Provider Instructions for Treatment [facility] Work Phone: Start: 02-04-2014 End: 01-16-2014 *Hepatic Function Panel *Hepatic Function Panel [facility] Work Phone: Start: 02-04-2014 End: 01-16-2014 Lipid panel [AGGREGATE] *Lipid Profile CC PCP [facility] Work Phone: Start: 02-04-2014 End: 01-16-2014 *Hepatic Function Panel *Hepatic Function Panel [facility] Work Phone: Start: 02-04-2014 End: 01-16-2014 Lipid panel [AGGREGATE] *Lipid Profile CC PCP [facility] Work Phone: Start: 01-17-2014 End: 01-08-2015 *Hepatic Function Panel *Hepatic Function Panel [facility] Work Phone: Start: 01-17-2014 End: 01-18-2014 GLOBAL VP CREATIVE + CONTENT MARKETING GLOBAL VP CREATIVE + CONTENT MARKETING [facility] Work Phone: Start: 01-17-2014 End: 01-18-2014 Ecg routine ecg w/least 12 lds w/i&r EKG (In office) [facility] Work Phone: Start: 01-17-2014 End: 01-18-2014 Follow Up Appt 4 months Follow Up Appt 4 months [facility] Work Phone: Start: 01-17-2014 End: 01-08-2015 Lipid panel [AGGREGATE] *Lipid Profile CC PCP [facility] Work Phone: Start: 01-17-2014 End: 01-08-2015 *Hepatic Function Panel *Hepatic Function Panel [facility] Work Phone: Start: 01-17-2014 End: 01-18-2014 GLOBAL VP CREATIVE + CONTENT MARKETING GLOBAL VP CREATIVE + CONTENT MARKETING [facility] Work Phone: Start: 01-17-2014 End: 01-18-2014 Electrocardiogram, complete EKG (In office) [facility] Work Phone: Start: 01-17-2014 End: 01-18-2014 Follow Up Appt 4 months Follow Up Appt 4 months [facility] Work Phone: Start: 01-17-2014 End: 01-08-2015 Lipid panel [AGGREGATE] *Lipid Profile CC PCP [facility] Work Phone: Start: 01-05-2014 Provider Instructions for Treatment [facility] Work Phone: Start: 01-01-2014 End: 01-16-2016 Cardiac Rehab Cardiac Rehab [facility] Work Phone: Start: 01-01-2014 End: 01-16-2016 Cardiac Rehab Cardiac Rehab [facility] Work Phone: Start: 12-27-2013 Patient Education [facility] Work Phone: Start: 12-27-2013 Provider Instructions for Treatment [facility] Work Phone: Start: 09-01-2013 End: 09-01-2013 GLOBAL VP CREATIVE + CONTENT MARKETING GLOBAL VP CREATIVE + CONTENT MARKETING [facility] Work Phone: Start: 09-01-2013 End: 09-01-2013 Follow Up Appt 6 months Follow Up Appt 6 months [facility] Work Phone: Start: 09-01-2013 End: 09-01-2013 GLOBAL VP CREATIVE + CONTENT MARKETING GLOBAL VP CREATIVE + CONTENT MARKETING [facility] Work Phone: Start: 09-01-2013 End: 09-01-2013 Follow Up Appt 6 months Follow Up Appt 6 months [facility] Work Phone: Start: 08-06-2013 End: 08-31-2013 *Hepatic Function Panel *Hepatic Function Panel [facility] Work Phone: Start: 08-06-2013 End: 08-31-2013 Lipid panel [AGGREGATE] *Lipid Profile CC PCP [facility] Work Phone: Start: 08-06-2013 End: 08-31-2013 *Hepatic Function Panel *Hepatic Function Panel [facility] Work Phone: Start: 08-06-2013 End: 08-31-2013 Lipid panel [AGGREGATE] *Lipid Profile CC PCP [facility] Work Phone: Start: 04-27-2013 End: 05-02-2013 Ambulatory BP Monitor 24 HR Ambulatory BP Monitor 24 HR [facility] Work Phone: Start: 04-27-2013 End: 05-02-2013 Ambulatory BP Monitor 24 HR Ambulatory BP Monitor 24 HR [facility] Group Work Phone: Start: 03-31-2013 End: 03-31-2013 Follow Up Appt 6 months Follow Up Appt 6 months [facility] Work Phone: Start: 03-31-2013 End: 03-31-2013 MMM MMM [facility] Work Phone: Start: 03-31-2013 End: 03-31-2013 Nuclear stress test -exercise Nuclear stress test -exercise [facility] Work Phone: Start: 03-31-2013 End: 03-31-2013 Follow Up Appt 6 months Follow Up Appt 6 months [facility] Work Phone: Start: 03-31-2013 End: 03-31-2013 MMM MMM [facility] Work Phone: Start: 03-31-2013 End: 03-31-2013 Nuclear stress test -exercise Nuclear stress test -exercise [facility] Work Phone: Start: 02-04-2013 End: 03-03-2013 *Hepatic Function Panel *Hepatic Function Panel [facility] Work Phone: Start: 02-04-2013 End: 03-03-2013 Lipid panel [AGGREGATE] *Lipid Profile [facility] Work Phone: Start: 02-04-2013 End: 03-03-2013 *Hepatic Function Panel *Hepatic Function Panel [facility] Work Phone: Start: 02-04-2013 End: 03-03-2013 Lipid panel [AGGREGATE] *Lipid Profile [facility] Work Phone: Start: 01-17-2013 Provider Instructions for Treatment [facility] Work Phone: Start: 08-06-2012 End: 08-24-2012 *Hepatic Function Panel *Hepatic Function Panel [facility] Work Phone: Start: 08-06-2012 End: 08-24-2012 Lipid panel [AGGREGATE] *Lipid Profile [facility] Work Phone: Start: 08-06-2012 End: 08-24-2012 *Hepatic Function Panel *Hepatic Function Panel [facility] Work Phone: Start: 08-06-2012 End: 08-24-2012 Lipid panel [AGGREGATE] *Lipid Profile [facility] Work Phone: Start: 2012 RSV High Risk: (Elderly (60+) or Population) (1 - 1-dose 75+ series) RSV High Risk: (Elderly (60+) or Population) (1 - 1-dose 75+ series) [facility] Start: 2012 RSV Vaccine (1 - 1-dose 75+ series) RSV Vaccine (1 - 1-dose 75+ series) [facility] Start: 04-20-2012 Culture bacterial quanttative colony count urine [facility] Work Phone: Start: 04-06-2012 Patient Education [facility] Work Phone: Start: 04-06-2012 Provider Instructions for Treatment [facility] Work Phone: Start: 03-02-2012 End: 03-02-2012 Follow Up Appt 1 year Follow Up Appt 1 year [facility] Work Phone: Start: 03-02-2012 End: 03-02-2012 Follow Up Appt 1 year Follow Up Appt 1 year [facility] Work Phone: Start: 02-25-2012 End: 02-24-2012 *Hepatic Function Panel *Hepatic Function Panel [facility] Work Phone: Start: 02-25-2012 End: 02-24-2012 Lipid panel [AGGREGATE] *Lipid Profile [facility] Work Phone: Start: 02-25-2012 End: 02-24-2012 *Hepatic Function Panel *Hepatic Function Panel [facility] Work Phone: Start: 02-25-2012 End: 02-24-2012 Lipid panel [AGGREGATE] *Lipid Profile [facility] Work Phone: Start: 11-26-2011 Skin test tuberculosis intradermal [facility] Work Phone: Comment on above: Lot #[id number]-[id number] FADose 0.1 mlgiven by:Lillian Start: 05-04-2011 C-reactive protein [facility]; [facility] Work Phone: Start: 05-04-2011 CRP mass conc C-REACTIVE PROTEIN ([id number]) [facility] Work Phone: Start: 05-01-2011 Provider Instructions for Treatment [facility] Work Phone: Start: 05-01-2011 Cyclic citrullinated peptide antibody [facility] Work Phone: Start: 03-20-2011 Provider Instructions for Treatment [facility] Work Phone: Start: 03-18-2011 Provider Instructions for Treatment [facility] Work Phone: Start: 12-17-2010 Provider Instructions for Treatment [facility] Work Phone: Start: 05-15-2009 Provider Instructions for Treatment [facility] Work Phone: Start: 05-01-2009 Provider Instructions for Treatment [facility] Work Phone: Start: 09-06-2007 Medicare Annual Wellness Visit Medicare Annual Wellness Visit [facility] Start: 03-15-2007 Provider Instructions for Treatment [facility] Work Phone: Start: 01-28-2007 Provider Instructions for Treatment [facility] Work Phone: Start: 2002 Screening for osteoporosis Bone Density Screening [facility] Start: 08-18-2000 Hepatitis B surface antibody level LDL Cholesterol [facility] Start: 1987 Pneumococcal vaccination Pneumococcal Vaccine (1 of 1 - PCV) [facility] Start: 1987 Pneumococcal Vaccine: 50+ (1 of 1 - PCV) Pneumococcal Vaccine: 50+ (1 of 1 - PCV) [facility] Start: 1987 Shingrix Vaccine (1 of 2) Shingrix Vaccine (1 of 2) [facility] Start: 1959 DTaP/Tdap/Td Vaccines (1 - Tdap) DTaP/Tdap/Td Vaccines (1 - Tdap) [facility] Start: 1956 Urine microalbumin profile DTaP,Tdap,Td Vaccine (1 - Tdap) [facility] Start: 1955 Anxiety Screening Anxiety Screening [facility] Start: 1955 Depression Screening Depression Screening [facility] Start: 1955 Diabetes mellitus screening Diabetes Screening [facility] Start: 1937 Lipid panel Lipid Panel [facility] Start: 1937 Medicare Annual Wellness Visit Medicare Annual Wellness Visit (AWV) [facility] Start: 1937 Screening for osteoporosis Bone Density Scan [facility] ECG 12 lead ECG 12 lead ECG STAT 09/30/2024 9:40 PM EST [facility] Service Area Work Phone: End: 11-08-2025 MR Brain WO and W contrast IV MRI BRAIN WO/W IVCON Radiology Routine Intracranial meningioma (HCC) Benign neoplasm of meninges (HCC) 1 Occurrences starting 10/10/2024 until 11/08/2025 [facility] Work Phone: Comment on above: 1 Occurrences starting 10/10/2024 until 11/08/2025 End: 11-09-2025 MR Brain WO and W contrast IV MRI BRAIN WO/W IVCON Radiology Routine Intracranial meningioma (HCC) Benign neoplasm of meninges (HCC) 1 Occurrences starting 10/10/2024 until 11/09/2025 [facility] Work Phone: Comment on above: 1 Occurrences starting 10/10/2024 until 11/09/2025 MR Brain WO and W contrast IV MRI BRAIN WO/W IVCON Radiology Routine Intracranial meningioma (HCC) Benign neoplasm of meninges (HCC) 10/10/2024 12:51 PM EST [facility] End: 11-16-2025 MR Brain WO and W contrast IV MRI BRAIN WO/W IVCON Radiology Routine Intracranial meningioma (HCC) 1 Occurrences starting 10/17/2024 until 11/16/2025 [facility] Work Phone: Comment on above: 1 Occurrences starting 10/17/2024 until 11/16/2025 [facility] Work Phone: Patient referral [facility] Work Phone: [facility] Work Phone: [facility] Work Phone: [facility] Work Phone: [facility] Work Phone: [facility] Work Phone: [facility] Work Phone: [facility] Work Phone: [facility] Work Phone: [facility] Work Phone: [facility] Work Phone: [facility] Work Phone: [facility] Work Phone: [facility] Work Phone: [facility] Work Phone: [facility] Work Phone: [facility] Work Phone[facility] Work Phone: [facility] Work Phone: [facility] Work Phone: [facility] Work Phone: [facility] Work Phone: [facility] Work Phone: [facility] Work Phone: [facility] Work Phone: [facility] Work Phone: [facility] Work Phone: [facility] Work Phone[facility] Work Phone: [facility] Work Phone: [facility] Work Phone: [facility] Work Phone: [facility]; [facility] Work Phone: [facility]; [facility] Work Phone: [facility]; [facility] Work Phone[facility]; [facility] Work Phone: [facility]; [facility] Work Phone: [facility]; [facility] Work Phone: [facility]; [facility] Work Phone: [facility]; [facility] Work Phone: [facility]; [facility] Work Phone: [facility]; [facility] Work Phone: [facility]; [facility] Work Phone: [facility]; [facility] Work Phone: Immunizations Immunization Date Immunization Notes Care Provider Fa [facility] 06-17-2021 COVID-Pfizer (30 MCG/0.3 ML) Joyce Roe MD Work Phone: [facility]; [facility] Work Phone: 11-05-2020 COVID-19 (Pfizer) Joyce Roe [facility]; [facility] Work Phone: 10-11-2020 COVID-19 (Pfizer) Joyce Roe [facility]; [facility] Work Phone: Comment on above: @ Pharmacy in [place] [facility] due for 2nd 11-05-20 07-06-2018 zoster vaccine, live [facility] Work Phone: 03-05-2014 varicella zoster immune globulin Joyce Roe [facility] Work Phone: Payers Date Payer Category Payer Self-pay [id number] 2021 Medicare [id number] 2015 Medicare supplementa l policy (as second payer) [facility] MEDICARE SUPPLEMENT [id number] 2015 Private Health Insurance [id number] 2014 Private Health Insurance [id number] 2007 Medicare [id number] 2002 Medicare [id number] 2002 Medicare [id number] 1937 Unknown [id number] 1937 Unknown [id number] .1243 1937 Unknown [id number] .1243 Unknown Unknown [id number] Unknown [id number] Unknown [id number] .462 Unknown [id number] 2.840.1.137503.3.579.2 .462 Unknown [id number] 2.16840.1.010295.3.579.2 .462 Unknown [id number] 2.16840.1.743649.3.579.2 .462 Unknown [id number] 2.16840.1.735183.3.579.2 .462 Unknown [id number] 2.16840.1.548155.3.579.2 .462 Unknown [id number] 2.16840.1.200565.3.579.2 .462 Unknown [id number] 2.16840.1.753135.3.579.2 .462 Unknown [id number] 2.16840.1.481264.3.579.2 .462 Unknown [id number] 2.16840.1.806291.3.579.2 .462 Unknown [id number] 2.16.840.1.519229.3.579.2 .462 Unknown [id number] 2.16.840.1.050683.3.579.2 .462 Unknown [id number] 2.16.840.1.151413.3.579.2 .462 Unknown [id number] [id number] .462 Social History Date Type Detail Facility Start: 09-30-2024 End: 11-13-2024 Current Work/Study Status Never smoker [facility] Work Phone: Comment on above: 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 5 days a week 30-60 work out and vigorous remarried, Lives wit h spouse [place] meet at [employer] meeting Tobacco use: Never smoker. [facility] Work Phone: Never smoker. [facility]; [facility] Work Phone: Start: 02-08-2021 End: 02-26-2023 Tobacco smoking status MTIS Unknown if ever smoked [facility] Start: 1935 Sex Assigned At Female [facility] Start: 09-26-2024 End: 09-30-2024 Tobacco smoking status NHIS Never smoked tobacco [facility] Work Phone: Start: 09-30-2024 Tobacco use and exposure Smokeless tobacco non-user [facility] Work Phone: Start: 09-30-2024 End: 11-13-2024 Tobacco use panel [facility] Start: 1935 Sex assigned at Not on file [facility] Work Phone: Start: 09-20-2024 End: 09-30-2024 Exposure to SARS-CoV-2 (event) Not sure [facility] Work Phone: Start: 04-22-2022 End: 03-23-2025 Alcoholic beverage intake Current non-drinker of alcohol (finding) [facility] National Score (1-10 0), lower number is lower risk 60 [facility] Goals Date Patient Goal Desired Activity /State Functional Status Date Assessment Result Facility 06-03-2021 LP-IR Score 36 [facility]; [facility] Work Phone: 07-20-2019 LP-IR Score 71 [facility] Work Phone: Comment on above: INSULIN RESISTANCE M ARKER <--Insulin Sensitive Insulin Resistant--> Percentile in Reference PopulationInsulin Resistance ScoreLP-IR Score Low 25th 50th 75th High <27 27 45 63 >63LP-IR Score is inaccurate if patient is non-fasting. .The LP-IR score is a laboratory developed index that has beenassociated with insulin resistance and diabetes risk and should beused as one component of a physician's clinical assessment. Test(s) 678382-LBV-A ; 951310-GTH-T; 307291-ZJL-O; 948825-Vtufxoaagoyfh; 428522-Tkkpcogtlyl, Total; 797102-EMU-Y (Total);076527-Fdwyz LDL-P; 957097-AQW Size; 821729-OB-DF Scorewas developed and its performance characteristics determinedby [employer]. It has not been cleared or approved by the Foodand Drug Administration.PATIENT WAS FASTINGPERFORMED BY: COGEON [address] [id number] BY: COGEON Albzum6958 [facility] [id number] Information: NURSE DRAW 01-26-2019 LP-IR Score 73 [facility] Work Phone: Comment on above: INSULIN RESISTANCE M ARKER <--Insulin Sensitive Insulin Resistant--> Percentile in Reference PopulationInsulin Resistance ScoreLP-IR Score Low 25th 50th 75th High <27 27 45 63 >63LP-IR Score is inaccurate if patient is non-fasting. .The LP-IR score is a laboratory developed index that has beenassociated with insulin resistance and diabetes risk and should beused as one component of a physician's clinical assessment. TheLP-IR score listed above has not been cleared by the [place] Food andDrug Administration. PATIENT WAS FASTINGP ERFORMED BY: [id number] [facility] [id number] BY: Offerm[employer]a Ocwead7135 [facility] [id number]; fu 02-02-19 db 01-10-2018 LP-IR Score 65 [facility] Work Phone: Comment on above: INSULIN RESISTANCE M ARKER <--Insulin Sensitive Insulin Resistant--> Percentile in Reference PopulationInsulin Resistance ScoreLP-IR Score Low 25th 50th 75th High <27 27 45 63 >63LP-IR Score is inaccurate if patient is non-fasting. .The LP-IR score is a laboratory developed index that has beenassociated with insulin resistance and diabetes risk and should beused as one component of a physician's clinical assessment. TheLP-IR score listed above has not been cleared by the [place] Food andDrug Administration. PATIENT WAS FASTINGP ERFORMED BY: [id number] [facility] [id number] BY: [employer]6370 [facility] [id number] 07-05-2017 LP-IR Score LP-IR Score 59 [facility] Work Phone: Comment on above: INSULIN RESISTANCE M ARKER <--Insulin Sensitive Insulin Resistant--> Percentile in Reference PopulationInsulin Resistance ScoreLP-IR Score Low 25th 50th 75th High <27 27 45 63 >63LP-IR Score is inaccurate if patient is non-fasting. .The LP-IR score is a laboratory developed index that has beenassociated with insulin resistance and diabetes risk and should beused as one component of a physician's clinical assessment. TheLP-IR score listed above has not been cleared by the [place] Food andDrug Administration. PATIENT WAS FASTINGP ERFORMED BY: [id number] [facility] [id number] BY: Offermatica [id number] [facility] [id number] 01-20-2017 LP-IR Score 53 [facility] Work Phone: Comment on above: INSULIN RESISTANCE M ARKER <--Insulin Sensitive Insulin Resistant--> Percentile in Reference PopulationInsulin Resistance ScoreLP-IR Score Low 25th 50th 75th High <27 27 45 63 >63LP-IR Score is inaccurate if patient is non-fasting. .The LP-IR score is a laboratory developed index that has beenassociated with insulin resistance and diabetes risk and should beused as one component of a physician's clinical assessment. TheLP-IR score listed above has not been cleared by the [place] Food andDrug Administration. PATIENT WAS FASTINGP ERFORMED BY: BN [facility] Istyoycler[address] [facility] [id number] BY: CB [facility] [id number] [facility] [id number] Mental Status Date Assessment Result Facility 09-29-2024 Cognitive function Voice/Name [facility] Work Phone: Clinical Notes 09-29-2024 to 06-11-2025 Note Date & Type Note Facility 06-11-2025 Progress note [facility] 03-29-2025 Evaluation note Diagnosis Onset Date Resolution Essential (primary) hypertension chronic March 29, 2025 1:52pm HLD (hyperlipidemia) chronic March 29, 2025 1:52pm H/O coronary artery bypass surgery November 22, 2013 resolved March 29, 2025 1:52pm Parkinson's disease noneactive April 03, 2025 1:15pm [facility] Work Phone: 1(912) 184-647207-24-2025 Evaluation note* Diagnosis Onset Date Resolution Status Admit Date Essential (primary) hypertension chronic March 29, 2025 1:52pm HLD (hyperlipidemia) chronic March 29, 2025 1:52pm H/O coronary artery bypass surgery November 22, 2013 resolved March 29, 2025 1:52pm Parkinson's disease noneactive April 03, 2025 1:15pm Parkinson's disease without dyskinesia or fluctuating manifestations chronic June 11 12:55pm [facility] Work Phone: 1(142) 765-402407-18-2025 History of Present illness Narrative* Jerzy Glass MD - 03/23/2025 10:00 AM EDT Images from the original note were not included. NEUROSURGERY FOLLOW UP OFFICE NOTE Dr. Jerzy Glass MD, FACS Date of visit: March 23, 2025 Patient Name: Ms.Georgia Мария Mariee Date of : 1935 Current Age: [age] year old Sex: female MRN/E# [id number] Last Office Visit: 10/17/2024 CHIEF COMPLAINT: Patient presents with: Established Patient SUBJECTIVE: The patient presents as a follow-up with imaging (MRI B) for evaluation. This is an 89-year-old female with no significant PMHx who was referred by Dr. Joyce Roe for neurosurgical evaluation. She was seen with her daughter for consult on 10/10/[address] B. She reported that she had a GLF on 09/30/24 and was taken to an outside ED. The fall caused her to strike her face. Workup was completed and showed an incidental finding of a meningioma arising from the junction of the left tentorium and petrous temporal bone. She was doing well since discharge with persistent difficulty with gait and balance however this was chronic over the last few years. She also reported difficulty with handwriting stating that her penmanship was very small. Neurologically she was intact with the exception of mildgait disturbance. CT was reviewed and showed a suspected meningioma arising from the junction of the left tentorium and petrous temporal bone. Treatment options were discussed with the patient and her daughter. Recommendation was to obtain a MRI brain to further define this lesion and to determine a treatment plan. They were advised that if indeed this turns out to be a meningioma surgical excision is not recommended. She was last seen in the office on 10/17/2024 and reported that she was overall doing well. She denied any new or concerning issues since her previous visit. Neurologically she was intact on exam without focal deficit. MRI was reviewed and showed to extra axial dural based masses as noted on the CT suspected to be meningiomas. Given she was asymptomatic and this was the first time the masses were discovered on MRI recommendation was for a short-term follow-up in about 4 to 5 months with a repeatMRI to evaluate any changes or growth. Today she states she is overall doing well. She reports that she will be seeing a Neurologist for possible diagnosis of Parkinson's. She is having a tremors, gait difficulty and trouble with her handwriting. She denies headache, visual changes, speech deficits, seizure activity, or sensory deficits. She presents for image review, evaluation and plan of care. MEDICATIONS: Keppra: No Dexamethasone: No SYMPTOMS: None PREVIOUS CONSERVATIVE TREATMENTS: None SURGICAL RISK: Smoker: Never Diabetic: No Anticoagulants / Antiplatelets: ASA 81 mg Occupation: Retired PREVIOUS NEUROSURGERY: None PAIN EVALUATION No data found in the last 1 encounters. PAST MEDICAL HISTORY Diagnosis Date Acute myocardial infarction of other specified sites, episode of care unspecified 09/06/1998 Myocardial Infarction Coronary atherosclerosis of unspecified type of vessel, [place] or graft Coronary artery disease Hypertension Mixed hyperlipidemia Osteoporosis PAST SURGICAL HISTORY Procedure Laterality Date COLONOSCOPY FLX DX W/COLLJ SPEC WHEN PFRMD 01/20/16 Colonoscopy EXC CYST/ABERRANT BREAST TISSUE OPEN / LESION 05/02/2008 Left Berast LAPAROSCOPY SURG CHOLECYSTECTOMY Cholecystectomy, lap PAST SURGICAL HISTORY OF 2013 heart bypass TOTAL ABDOMINAL HYSTERECT W/WO RMVL TUBE OVARY Hysterectomy, JYOTI - ovaries still present TRANSCATH STENT INIT VESSEL,PERCUT 1998 Transcath stent init vessel percut FAMILY HISTORY Problem Relation Age of Onset Breast Cancer Mother Cancer Mother ovarian Cancer Father throat Breast Cancer Sister Breast Cancer Daughter ALLERGIES No Known Allergies Current Outpatient Medications Medication Sig Dispense Refill Magnesium 250 mg tab KLOR-CON M20 20 mEq tablet FOLIC ACID ORAL Take by mouth once daily. hydroCHLOROthiazide 25 mg tablet 25 mg. Every 3 days Ibandronate 150 mg tablet once every month. omeprazole (PRILOSEC) 20 mg capsule Take 1 capsule by mouth every afternoon. amLODIPine (NORVASC) 5 mg tablet Take 1 tablet by mouth every afternoon. rosuvastatin (CRESTOR) 20 mg tablet Take 1 tablet by mouth every afternoon. GLUC/LÓPEZ-MSM#1/C/KRISTIE/REAGAN/BOR (OSTEO BI-FLEX TRIPLE STRENGTH ORAL) Take 2 tablets by mouth once daily. ATENOLOL 25 MG TAB Take one(1) tablet daily. 0 ASPIRIN 81 MG CHEWABLE TAB Take one(1) tablet daily. 0 calcium carbonate/vitamin d3(CALCIUM 600 + D 600 MG-400 UNIT TAB) 0 furosemide (LASIX) 20 mg tablet Take 20 mg by mouth once daily. No current facility-administered medications for this visit. REVIEW OF SYSTEMS: Review of Systems Constitutional: Negative for chills, diaphoresis (Negative for night sweats.) and fever. HENT: Negative for ear discharge and rhinorrhea. Eyes: Negative for discharge. Respiratory: Negative for cough, shortness of breath and wheezing. Cardiovascular: Negative for chest pain, palpitations and leg swelling. Gastrointestinal: Negative for constipation, diarrhea, nausea and vomiting. Endocrine: Negative for cold intolerance and heat intolerance. Genitourinary: Negative for frequency. Negative for urinary incontinence and urinary retention. Musculoskeletal: Negative for back pain, joint swelling, myalgias and neck pain. Skin: Negative for rash (Negative for hives and skin lesions.). Allergic/Immunologic: Negative for environmental allergies and food allergies. Negative for contact allergy, seasonal allergies. Neurological: Negative for dizziness, seizures, syncope, weakness, light- headedness, numbness (Negative for numbness in extremities.) and headaches. Hematological: Does not bruise/bleed easily. Psychiatric/Behavioral: The patient is not nervous/anxious. Negative for depression. OBJECTIVE: BP 138/63 Pulse 56 Resp 16 Ht 5' 1" (1.55m) Wt 123 lb 10.9 oz (56.1kg) SpO2 99% BMI 23.38 kg/(m^2). PHYSICAL EXAM: Mental State : Alert. Attention span and concentration normal for patient's age. Speech normal, fluent. No receptive or expressive speech deficit. Recent and remote memory normal. Orientation : Oriented to person, place and time. Higher Cortical Function : Intact speech and language. Comprehension normal. Fund of knowledge intact for pt level of education. Cranial Nerves : II: No visual field cut, no blurring. Makes and sustains eye contact. III, IV, : No double vision or lid drooping. Pupils equal and reactive to light. Extraocular muscles intact. No nystagmus. V: Normal sensation on the face, normal jaw movements. VII: No paresis on either side. VIII: No gross hearing deficit IX: Good and equal shoulder shrugs. XII: Tongue midline, no fasciculations. Sensory: SILT. Normal Sensation in bilateral upper and bilateral lower extremities to touch and noxious stimuli. Motor: Normal muscle tone and bulk. No spasticity, tremor or uncontrollable movements. Strength: Upper Extremities : R L Deltoid 5/5 5/5 Biceps 5/5 5/5 Triceps 5/5 5/5 Wrist Ext 5/5 5/5 Wrist Flx 5/5 5/5 Hand Int 5/5 5/5 Lower Extremities : Hip Flexors 5/5 5/5 Hip Extensors 5/5 5/5 Hip Abductors 5/5 5/5 Straight leg Neg Neg Ankle dorsiflex 5/5 5/5 Ankle Plantar 5/5 5/5 Cerebellar Function : Normal finger to nose. Normal rapid alternating movements. No ataxia. . Gait and Station: Normal gait. No assistive device usage. IMAGING: MRI Brain WO/W IVCON performed on 03/16/25 demonstrates: IMPRESSION: Presumed meningiomas along the right frontal convexity and left anterior cerebellar convexity, as described, which appear grossly unchanged in appearance since prior exam from 10/10/2004 10/10/2024 03/16/2025 10/10/2024 03/16/2025 ASSESSMENT/PLAN: 1. Intracranial meningioma (HCC) - ICD9: 225.2, ICD10: D32.0 Patient is here for a follow-up visit after MRI scan was done. She is doing well and is in the process of seeing neurology for suspected Parkinson's disease. As far as her meningiomas are concerned including the larger one along the tentorial edge of the petrous bone on the left and the right sidedfrontal medial 1 have not significantly changed. I reported this to her and her daughter and recommended that we see her in 1 year from now with an MRI scan. My preference is to monitor these meningiomas at this time and do an intervention if we demonstrate growth. Jerzy Glass MD FOLLOW UP: Return in about 1 year (around 03/23/2026) for review of MRI. Please Note: This note has been partially generated using [employer], a speech recognition software program, and may contain errors including punctuation, grammar, spelling, gender, and inappropriate words or phrases that pertain to the system. documented in this encounterF[facility]07-[facility]25 NoteHNO ID: [id number] Author: JERZY GLASS MD Service: ? Author Type: Physician Type: Progress Notes Filed: 03/23/2025 10:16 Note Text: NEUROSURGERY FOLLOW UP OFFICE NOTE Dr. Jerzy Glass MD, [facility] Date of visit: March 23, 2025 Patient Name: Ms.Georgia Мария Mariee Date of : 1935 Current Age: [age] year old Sex: female MRN/E# [id number] Last Office Visit: 10/17/2024 CHIEF COMPLAINT: Patient presents with: Established Patient SUBJECTIVE: The patient presents as a follow-up with imaging (MRI B) for evaluation. This is an 89-year-old female with no significant PMHx who was referred by Dr. Joyce Roe for neurosurgical evaluation. She was seen with her daughter for consult on 10/10/[address] B. She reported that she had a GLF on 09/30/24 and was taken to an outside ED. The fall caused her to strike her face. Workup was completed and showed an incidental finding of a meningioma arising from the junction of the left tentorium and petrous temporal bone. She was doing well since discharge with persistent difficulty with gait and balance however this was chronic over the last few years. She also reported difficulty with handwriting stating that her penmanship was very small. Neurologically she was intact with the exception of mild gait disturbance. CT was reviewed and showed a suspected meningioma arising from the junction of the left tentorium and petroustemporal bone. Treatment options were discussed with the patient and her daughter. Recommendation was to obtain a MRI brain to further define this lesion and to determine a treatment plan. They were advised that if indeed this turns out to be a meningioma surgical excision is not recommended. She was last seen in the office on 10/17/2024 and reported that she was overall doing well. She denied any new or concerning issues since her previous visit. Neurologically she was intact on exam without focal deficit. MRI was reviewed and showed to extra axial dural based masses as noted on the CT suspected to be meningiomas. Given she was asymptomatic and this was the first time the masses were discovered on MRI recommendation was for a short-term follow-up in about 4 to 5 months with a repeat MRI to evaluate any changes or growth. Today she states she is overall doing well. She reports that she will be seeing a Neurologist for possible diagnosis of Parkinson's. She is having a tremors, gait difficulty and trouble with her handwriting. She denies headache, visual changes, speech deficits, seizure activity, or sensory deficits. She presents for image review, evaluation and plan of care. MEDICATIONS: Keppra: No Dexamethasone: No SYMPTOMS: None PREVIOUS CONSERVATIVE TREATMENTS: None SURGICAL RISK: Smoker: Never Diabetic: No Anticoagulants / Antiplatelets: ASA 81 mg Occupation: Retired PREVIOUS NEUROSURGERY: None PAIN EVALUATION No data found in the last 1 encounters. PAST MEDICAL HISTORY Diagnosis Date Acute myocardial infarction of other specified sites, episode of care unspecified 09/06/1998 Myocardial Infarction Coronary atherosclerosis of unspecified type of vessel, pascua yaqui or graft Coronary artery disease Hypertension Mixed hyperlipidemia Osteoporosis PAST SURGICAL HISTORY Procedure Laterality Date COLONOSCOPY FLX DX W/COLLJ SPEC WHEN PFRMD 01/20/16 Colonoscopy EXC CYST/ABERRANT BREAST TISSUE OPEN 1/> LESION 05/02/2008 Left [place] LAPAROSCOPY SURG CHOLECYSTECTOMY Cholecystectomy, lap PAST SURGICAL HISTORY OF 2013 heart bypass TOTAL ABDOMINAL HYSTERECT W/WO RMVL TUBE OVARY Hysterectomy, JYOTI - ovaries still present TRANSCATH STENT INIT VESSEL,PERCUT 1998 Transcath stent init vessel percut FAMILY HISTORY Problem Relation Age of Onset Breast Cancer Mother Cancer Mother ovarian Cancer Father throat Breast Cancer Sister Breast Cancer Daughter ALLERGIES No Known Allergies Current Outpatient Medications Medication Sig Dispense Refill Magnesium 250 mg tab KLOR-CON M20 20 mEq tablet FOLIC ACID ORAL Take by mouth once daily. hydroCHLOROthiazide 25 mg tablet 25 mg. Every 3 days Ibandronate 150 mg tablet once every month. omeprazole (PRILOSEC) 20 mg capsule Take 1 capsule by mouth every afternoon. amLODIPine (NORVASC) 5 mg tablet Take 1 tablet by mouth every afternoon. rosuvastatin (CRESTOR) 20 mg tablet Take 1 tablet by mouth every afternoon. GLUC/LÓPEZ-MSM#1/C/KRISTIE/REAGAN/BOR (OSTEO BI-FLEX TRIPLE STRENGTH ORAL) Take 2 tablets by mouth once daily. ATENOLOL 25 MG TAB Take one(1) tablet daily. 0 ASPIRIN 81 MG CHEWABLE TAB Take one(1) tablet daily. 0 calcium carbonate/vitamin d3(CALCIUM 600 + D 600 MG-400 UNIT TAB) 0 furosemide (LASIX) 20 mg tablet Take 20 mg by mouth once daily. No current facility-administered medications for this visit. REVIEW OF SYSTEMS: Review of Systems Constitutional: Negative for chills, diaphoresis (Negative for night sweats.) and (more content not included)...[facility]07-11-[facility] History of Present illness Narrative* Vivi Dave RT(R) - 03/16/2025 10:00 AM EDT Radiology Service Progress Note DATE OF SERVICE: March 16, 2025 TIME: 10:49 AM PATIENT IDENTITY VERIFICATION COMPLETED USING TWO (2) STANDARD IDENTIFIERS: Name and Date of confirmed by patient verbally. FALL SCREENING: Has the patient had 2 falls in the last year or 1 fall with injury or currently using an Ambulatory Assistive Device (Walker, Cane, Wheelchair, Crutches, etc.)? No PATIENT GENDER DATA: Assigned female at . status: : No status:NO. PATIENT RELEVANT IMPLANT DATA REVIEWED: Yes PATIENT PRESENTS WITH AN IMPLANTABLE OR ATTACHED POULTRY FIELD SERVICE TECHNICIAN: No ALLERGIES: Reviewed and unchanged CONTRAST ALLERGY: NO. EXAM: MRI - CONTRAST TYPE: GROUP II PERIPHERAL IV DATA: Ambulatory: A peripheral IV was started in the Right antecubital site with a Angio cath: 22 gauge. RADIOLOGY DEPARTMENT: MR; Exam(s) Completed: Head: Routine Brain. Aromatherapy Administered: No SIGNATURE: BENNY Meadows) PATIENT NAME: Peter Mariee DATE: March 16, 2025 TIME: 10:49 AM documented in this encounterF[facility]07-11-2025 NoteHNO ID: [id number] Author: VIVI DAVE RT(R) Service: ? Author Type: Technologist Type: Progress Notes Filed: 03/16/2025 10:49 Note Text: Radiology Service Progress Note DATE OF SERVICE: March 16, 2025 TIME: 10:49 AM PATIENT IDENTITY VERIFICATION COMPLETED USING TWO (2) STANDARD IDENTIFIERS: Name and Date of confirmed by patient verbally. FALL SCREENING: Has the patient had 2 falls in the last year or 1 fall with injury or currently using an Ambulatory Assistive Device (Walker, Cane, Wheelchair, Crutches, etc.)? No PATIENT GENDER DATA: Assigned female at . status: : No status: NO. PATIENT RELEVANT IMPLANT DATA REVIEWED: Yes PATIENT PRESENTS WITH AN IMPLANTABLE OR ATTACHED POULTRY FIELD SERVICE TECHNICIAN: No ALLERGIES: Reviewed and unchanged CONTRAST ALLERGY: NO. EXAM: MRI - CONTRAST TYPE: GROUP II PERIPHERAL IV DATA: Ambulatory: A peripheral IV was started in the Right antecubital site with a Angio cath: 22 gauge. RADIOLOGY DEPARTMENT: MR; Exam(s) Completed: Head: Routine Brain. Aromatherapy Administered: No SIGNATURE: RT Dori(R) PATIENT NAME: Peter Mariee DATE: March 16, 2025 TIME: 10:49 [facility]05-19-2025 Radiology Diagnostic study note [facility] Imaging Services [address], [place] [id number] Breast Limited Unilateral MR#: [id number] Acct: [id number] Name: PETER MARIEE Rep #: [id number] : 1935 F 89 From: Rolly Carrera DO PCP: Dr. Joyce Roe MD Status: REG C DESTINEY Study:Breast Limited Unilateral Date of Exam: 01/22/25 Exam# [id number] Ordering Dr: Joyce Roe MD PROCEDURE: BREAST LIMITED UNILATERAL 01/22/2025 REASON FOR EXAM: ABN MAMM Asymmetric density inferior aspect right breast. Inconclusive mammogram. Evaluate. TECHNIQUE: Targeted left breast ultrasound. COMPARISON: Mammogram studies dated 01/22/2025, 01/10/2025, and 07/16/2023 FINDINGS: There is a benign-appearing macrocalcification in the right breast at the 6 o'clock, 3 cm from nipple position. The asymmetric density seen on the mammogram study appears to represent a ridge of fibroglandular tissue on the images submitted for review. No suspicious solid or cystic masses are seen in the breast to suggest malignancy. US/Breast Limited Unilateral IMPRESSION: Impression: The asymmetric density seen on the mammogram study appears to represent a probable ridge of fibroglandular tissue on the ultrasound examination. A short-term six-month follow-up mammogram of the right breast however should be performed to document stability. Birads: BI-RADS 3: PROBABLY BENIGN. Reading Location: [id number] CC: Dr. Joyce Roe MD ~ Reheater: Signed [facility]03-28-2025 NoteHNO ID: [id number] Author: JASPER PEACOCK MD Service: ? Author Type: Physician Type: Progress Notes Filed: 12/01/2024 09:57 Note Text: HISTORY AND PHYSICAL Peter Mariee 1935 REFERRING PHYSICIAN: Joyce Roe MD CHIEF COMPLAINT: Consult HPI: The patient is a 89 year old female with a complaint of colitis. Patient had a recent admission to [facility] where she had a scope that showed inflammation. She was started on medication for this she is here today to discuss if this medication is appropriate. The patient is being seen by me today at the request of Dr. 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 PAST MEDICAL HISTORY Diagnosis Date Acute myocardial infarction of other specified sites, episode of care unspecified 09/06/1998 Myocardial Infarction Coronary atherosclerosis of unspecified type of vessel, pascua ya[place] or graft Coronary artery disease Hypertension Mixed hyperlipidemia Osteoporosis PAST SURGICAL HISTORY Procedure Laterality Date COLONOSCOPY FLX DX W/COLLJ SPEC WHEN PFRMD 01/20/16 Colonoscopy EXC CYST/ABERRANT BREAST TISSUE OPEN / LESION 05/02/2008 Left [place] LAPAROSCOPY SURG CHOLECYSTECTOMY Cholecystectomy, lap PAST SURGICAL HISTORY OF 2013 heart bypass TOTAL ABDOMINAL HYSTERECT W/WO RMVL TUBE OVARY Hysterectomy, JYOTI - ovaries still present TRANSCATH STENT INIT VESSEL,PERCUT 1998 Transcath stent init vessel percut Current Outpatient Medications Medication Sig FOLIC ACID ORAL Take by mouth once daily. TURMERIC ORAL Take by mouth once daily. hydroCHLOROthiazide 25 mg tablet 25 mg. Every 3 days Ibandronate 150 mg tablet once every month. omeprazole (PRILOSEC) 20 mg capsule Take 1 capsule by mouth every afternoon. amLODIPine (NORVASC) 10 mg tablet Take 1 tablet by mouth every afternoon. rosuvastatin (CRESTOR) 20 mg tablet Take 1 tablet by mouth every afternoon. GLUC/LÓPEZ-MSM#1/C/KRISTIE/REAGAN/BOR (OSTEO BI-FLEX TRIPLE STRENGTH ORAL) Take 2 tablets by mouth once daily. ATENOLOL 25 MG TAB Take one(1) tablet daily. ASPIRIN 81 MG CHEWABLE TAB Take one(1) tablet daily. calcium carbonate/vitamin d3(CALCIUM 600 + D 600 MG-400 UNIT TAB) iv contrast (will be provided with radiology test) MRI Brain Inject, intravenously, once for 1 dose.No IV access, insert saline lock prior to beginning of sedation, infusion, injection of imaging exam.Discontinue saline lock post exam. If Pt. has a central line or IVAD, may access for administration according to line specific nursing protocol.Once exam is complete flush line and de-access according to line specific nursing protocol in the MR contrast administration guidelines link No current facility-administered medications for this visit. ALLERGIES: Patient has no known allergies. PERSONAL HISTORY: Social History Tobacco Use Smoking status: Never Substance Use Topics Alcohol use: No Drug use: No FAMILY HISTORY: FAMILY HISTORY Problem Relation Age of Onset Breast Cancer Mother Cancer Mother ovarian Cancer Father throat Breast Cancer Sister Breast Cancer Daughter REVIEW OF SYMPTOMS: The review of systems data was entered by the nurse and reviewed by me There are no exam notes on file for this visit. PHYSICAL EXAMINATION: General: The patient is 89 year old female, well nourished, well hydrated in no acute distress. The patient is oriented to time, place, and person. VITALS: Blood pressure 121/69, pulse 61, height 154.9 cm (5' 1"), weight 54.4 kg (120 lb), SpO2 97%. HEENT: Normal cephalic, ataumatic, pupils are equally round, sclera are anicteric, mucous membranes are moist, oropharynx is clear. Neck has no masses, asymmetry or lymphadenopathy. Thyroid is unremarkable. Respiratory: Clear to auscultation and percussion. Normal respiratory excursion and pattern. Cardiac: Examination is regular rate and rhythm. Abdominal exam: Soft, nontender, with no palpable masses. No hepatosplenomegaly. No palpable hernias. Rectal exam: exam deferred Extremities: no clubbing, cyanosis or edema. No adenopathy. 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 I do not think there is any reason for her to change I reassured her that her chip mucker is tiptop. Diagnoses: (K51.50) Left sided colitis without complications (HCC) (primary encounter diagnosis) A letter was sent to Dr. Joyce Roe MD indicating the above finding for this patient. Return to Clinic: The patient is instructed to follow-up with me as needed. Jasper Peacock III, [facility]03-28-2025 History of Present illness Narrative* Jasper Peacock MD - 12/01/2024 9:45 AM EDT HISTORY AND PHYSICAL Peter Mariee 1935 REFERRING PHYSICIAN: Joyce Roe MD CHIEF COMPLAINT: Consult HPI: The patient is a 89 year old female with a complaint of colitis. Patient had a recent admission to [facility] where she had a scope that showed inflammation. She was started on medication for this she is here today to discuss if this medication is appropriate. The patient is being seen by me today at the request of Dr. 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 PAST MEDICAL HISTORY Diagnosis Date Acute myocardial infarction of other specified sites, episode of care unspecified 09/06/1998 Myocardial Infarction Coronary atherosclerosis of unspecified type of vessel, pascua ya[place] or graft Coronary artery disease Hypertension Mixed hyperlipidemia Osteoporosis PAST SURGICAL HISTORY Procedure Laterality Date COLONOSCOPY FLX DX W/COLLJ SPEC WHEN PFRMD 01/20/16 Colonoscopy EXC CYST/ABERRANT BREAST TISSUE OPEN / LESION 05/02/2008 Left [place] LAPAROSCOPY SURG CHOLECYSTECTOMY Cholecystectomy, lap PAST SURGICAL HISTORY OF 2013 heart bypass TOTAL ABDOMINAL HYSTERECT W/WO RMVL TUBE OVARY Hysterectomy, JYOTI - ovaries still present TRANSCATH STENT INIT VESSEL,PERCUT 1998 Transcath stent init vessel percut Current Outpatient Medications Medication Sig FOLIC ACID ORAL Take by mouth once daily. TURMERIC ORAL Take by mouth once daily. hydroCHLOROthiazide 25 mg tablet 25 mg. Every 3 days Ibandronate 150 mg tablet once every month. omeprazole (PRILOSEC) 20 mg capsule Take 1 capsule by mouth every afternoon. amLODIPine (NORVASC) 10 mg tablet Take 1 tablet by mouth every afternoon. rosuvastatin (CRESTOR) 20 mg tablet Take 1 tablet by mouth every afternoon. GLUC/LÓPEZ-MSM#1/C/KRISTIE/REAGAN/BOR (OSTEO BI-FLEX TRIPLE STRENGTH ORAL) Take 2 tablets by mouth once daily. ATENOLOL 25 MG TAB Take one(1) tablet daily. ASPIRIN 81 MG CHEWABLE TAB Take one(1) tablet daily. calcium carbonate/vitamin d3(CALCIUM 600 + D 600 MG-400 UNIT TAB) iv contrast (will be provided with radiology test) MRI Brain Inject, intravenously, once for 1 dose.No IV access, insert saline lock prior to beginning of sedation, infusion, injection of imaging exam.Discontinue saline lock post exam. If Pt. has a central line or IVAD, may access for administration according to line specific nursing protocol.Once exam is complete flush line and de-access according to line specific nursing protocol in the MR contrast administration guidelines link No current facility-administered medications for this visit. ALLERGIES: Patient has no known allergies. PERSONAL HISTORY: Social History Tobacco Use Smoking status: Never Substance Use Topics Alcohol use: No Drug use: No FAMILY HISTORY: FAMILY HISTORY Problem Relation Age of Onset Breast Cancer Mother Cancer Mother ovarian Cancer Father throat Breast Cancer Sister Breast Cancer Daughter REVIEW OF SYMPTOMS: The review of systems data was entered by the nurse and reviewed by me There are no exam notes on file for this visit. PHYSICAL EXAMINATION: General: The patient is 89 year old female, well nourished, well hydrated in no acute distress. Thepatient is oriented to time, place, and person. VITALS: Blood pressure 121/69, pulse 61, height 154.9 cm (5' 1"), weight 54.4 kg (120 lb), SpO2 97%. HEENT: Normal cephalic, ataumatic, pupils are equally round, sclera are anicteric, mucous membranesare moist, oropharynx is clear. Neck has no masses, asymmetry or lymphadenopathy. Thyroid is unremarkable. Respiratory: Clear to auscultation and percussion. Normal respiratory excursion and pattern. Cardiac: Examination is regular rate and rhythm. Abdominal exam: Soft, nontender, with no palpable masses. No hepatosplenomegaly. No palpable hernias. Rectal exam: exam deferred Extremities: no clubbing, cyanosis or edema. No adenopathy. 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 I do not think there is any reason for her to change I reassured her that her gastroenterologistis [place]ipt[place]. Diagnoses: (K51.50) Left sided colitis without complications (HCC) (primary encounter diagnosis) A letter was sent to Dr. Joyce Roe MD indicating the above finding for this patient. Return to Clinic: The patient is instructed to follow-up with me as needed. Jasper Peacock III, MD * Benjamín Kelsie, MA - 11/13/2024 2:34 PM EDT REVIEW OF SYSTEMS: General: The patient denies fatigue, denies weight loss, denies weight gain, denies feeling hot, and denies feelings of cold. Eyes: The patient denies glaucoma, denies eye injury/surgery, wears glasses or contacts. Ear/Nose/Throat: The patient denies allergies, denies hayfever, denies ear infections, and denies bloody noses. Cardiovascular: The patient denies chest pain, denies heart disease, denies high blood pressure,denies cardiac stent, NOTES prior heart attack, denies irregular heart beat, denies high cholesterol, denies poor circulation, denies heart failure, other cardiac issues, denies claudication, denies coldfeet, denies peripheral arterial stent. Respiratory: The patient denies tuberculosis, denies pneumonia, denies frequent cough, denies pulmonary embolism, denies shortness of breath, and denies coughing up blood. Gastrointestinal: The patient denies difficulty swallowing, NOTES acid reflux, denies ulcers, denies vomiting, denies jaundice/hepatitis, denies gallbladder problems, denies black or tarry stools, denies hemorrhoids, denies bleeding from rectum, denies diverticulitis, denies constipation, denies diarrhea, denies loss of stool control, and denies hernias. Kidney/Bladder: The patient denies kidney stones, denies urine infections, and denies bloody urine. Skin: The patient denies a history of skin cancer, denies bleeding/changing moles, and denies a history of skin rash. Neurologic: The patient denies a history of epilepsy/convulsions, denies headaches, denies head/spinal injuries, and denies stroke/TIA. Psychiatric: The patient denies psychiatric medications, denies depression, and denies voices, denies substance abuse. Endocrine: The patient denies thyroid disorders, denies diabetes, and denies hormonal problems. Hematologic: The patient denies a history of bruising, denies bleeding, and denies anemia, denies blood clots. Infections: The patient NOTES a history of measles and mumps, denies rheumatic fever, and denies sexually transmitted diseases. Musculoskeletal: The patient denies back pain/injury, NOTES back problems, denies sciatica, denies knee/foot trouble, NOTES arthritis, or denies gout. When was patient's last Mammogram screening? 07/2022 Last Colonoscopy:09/2024 Kelsie Vigil MA documented in this encounterF[facility]03-10-2025 NoteHNO ID: [id number] Author: KELSIE VIGIL MA Service: ? Author Type: Branch Associate Type: Progress Notes Filed: 12/01/2024 09:57 Note Text: REVIEW OF SYSTEMS: General: The patient denies fatigue, denies weight loss, denies weight gain, denies feeling hot, and denies feelings of cold. Eyes: The patient denies glaucoma, denies eye injury/surgery, wears glasses or contacts. Ear/Nose/Throat: The patient denies allergies, denies hayfever, denies ear infections, and denies bloody noses. Cardiovascular: The patient denies chest pain, denies heart disease, denies high blood pressure,denies cardiac stent, NOTES prior heart attack, denies irregular heart beat, denies high cholesterol, denies poor circulation, denies heart failure, other cardiac issues, denies claudication, denies cold feet, denies peripheral arterial stent. Respiratory: The patient denies tuberculosis, denies pneumonia, denies frequent cough, denies pulmonary embolism, denies shortness of breath, and denies coughing up blood. Gastrointestinal: The patient denies difficulty swallowing, NOTES acid reflux, denies ulcers, denies vomiting, denies jaundice/hepatitis, denies gallbladder problems, denies black or tarry stools, denies hemorrhoids, denies bleeding from rectum, denies diverticulitis, denies constipation, denies diarrhea, denies loss of stool control, and denies hernias. Kidney/Bladder: The patient denies kidney stones, denies urine infections, and denies bloody urine. Skin: The patient denies a history of skin cancer, denies bleeding/changing moles, and denies a history of skin rash. Neurologic: The patient denies a history of epilepsy/convulsions, denies headaches, denies head/spinal injuries, and denies stroke/TIA. Psychiatric: The patient denies psychiatric medications, denies depression, and denies voices, denies substance abuse. Endocrine: The patient denies thyroid disorders, denies diabetes, and denies hormonal problems. Hematologic: The patient denies a history of bruising, denies bleeding, and denies anemia, denies blood clots. Infections: The patient NOTES a history of measles and mumps, denies rheumatic fever, and denies sexually transmitted diseases. Musculoskeletal: The patient denies back pain/injury, NOTES back problems, denies sciatica, denies knee/foot trouble, NOTES arthritis, or denies gout. When was patient's last Mammogram screening? 07/2022 Last Colonoscopy:09/2024 Kelsie Vigil [facility]03-10-2025 Instructions* Patient Instructions* Kelsie Vigil MA - 11/13/2024 2:33 PM EDT Miralax daily for regularity. Increase water intake. [facility] History of Present illness Narrative* Jerzy Glass MD - 10/17/2024 9:45 AM EST NEUROSURGERY FOLLOW UP OFFICE NOTE Dr. Jerzy Glass MD, FACS Date of visit: October 17, 2024 Patient Name: Ms.Georgia Мария Mariee Date of : 1935 Current Age: [age] year old Sex: female MRN/E# [id number] Last Office Visit: 10/10/2024 CHIEF COMPLAINT: Patient presents with: Established Patient SUBJECTIVE: The patient presents as a follow up with imaging (MRI B) for evaluation. This is an 89 year old female with no significant PMHx who was referred by Dr. Joyce Roe for neurosurgical evaluation. She was seen with her daughter for consult on 10/10/[address] B. She reported that she had a GLF on 09/30/24 and was taken to an outside ED. The fall caused her to strike her face. LOC was unknown. 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 She reported that she was doing well in regard to the recent fall. She stated that she had been having difficulty with her gait and balance over the last few years. She also felt as if her handwriting had worsened. Her penmanship is very small. Otherwise no issues. Neurologically she was intact with the exception of mild gait disturbance. CT was reviewed and showeda suspected meningioma arising from the junction of the left tentorium and petrous temporal bone. Treatment options were discussed with the patient and her daughter. Recommendation was to obtain a MRI brain to further define this lesion and to determine a treatment plan. They were advised that if indeed this turns out to be a meningioma surgical excision is not recommended. Today she states she is overall doing well. She denies any new or concerning issues since last visit. She presents for image review, evaluation and plan of care. MEDICATIONS: Keppra: No Dexamethasone: No SYMPTOMS: None PREVIOUS CONSERVATIVE TREATMENTS: None SURGICAL RISK: Smoker: Never Diabetic: No Anticoagulants / Antiplatelets: ASA 81 mg Occupation: Retired PREVIOUS NEUROSURGERY: None PAIN EVALUATION No data found in the last 1 encounters. PAST MEDICAL HISTORY Diagnosis Date Acute myocardial infarction of other specified sites, episode of care unspecified 1998 Myocardial Infarction Coronary atherosclerosis of unspecified type of vessel, pascua yaqui or graft Coronary artery disease PAST SURGICAL HISTORY Procedure Laterality Date COLONOSCOPY FLX DX W/COLLJ SPEC WHEN PFRMD 01/20/16 Colonoscopy EXC CYST/ABERRANT BREAST TISSUE OPEN / LESION 05/02/2008 Left [place] LAPAROSCOPY SURG CHOLECYSTECTOMY Cholecystectomy, lap PAST SURGICAL HISTORY OF 2013 heart bypass TOTAL ABDOMINAL HYSTERECT W/WO RMVL TUBE OVARY Hysterectomy, JYOTI - ovaries still present TRANSCATH STENT INIT VESSEL,PERCUT 1998 Transcath stent init vessel percut FAMILY HISTORY Problem Relation Age of Onset Breast Cancer Mother Cancer Mother ovarian Cancer Father throat Breast Cancer Sister Breast Cancer Daughter ALLERGIES No Known Allergies Current Outpatient Medications Medication Sig Dispense Refill hydroCHLOROthiazide 25 mg tablet 25 mg. Ibandronate 150 mg tablet omeprazole (PRILOSEC) 20 mg capsule Take 1 capsule by mouth every afternoon. amLODIPine (NORVASC) 10 mg tablet Take 1 tablet by mouth every afternoon. rosuvastatin (CRESTOR) 20 mg tablet Take 1 tablet by mouth every afternoon. GLUC/LÓPEZ-MSM#1/C/KRISTIE/REAGAN/BOR (OSTEO BI-FLEX TRIPLE STRENGTH ORAL) Take 2 tablets by mouth once daily. ATENOLOL 25 MG TAB Take one(1) tablet daily. 0 ASPIRIN 81 MG CHEWABLE TAB Take one(1) tablet daily. 0 calcium carbonate/vitamin d3(CALCIUM 600 + D 600 MG-400 UNIT TAB) 0 iv contrast (will be provided with radiology test) MRI Brain Inject, intravenously, once for 1 dose.No IV access, insert saline lock prior to beginning of sedation, infusion, injection of imaging exam.Discontinue saline lock post exam. If Pt. has a central line or IVAD, may access for administration according to line specific nursing protocol.Once exam is complete flush line and de-access according to line specific nursing protocol in the MR contrast administration guidelines link 1 Each 0 No current facility-administered medications for this visit. REVIEW OF SYSTEMS: Review of Systems Constitutional: Negative for chills, diaphoresis (Negative for night sweats.) and fever. HENT: Negative for ear discharge and rhinorrhea. Eyes: Negative for discharge. Respiratory: Negative for cough, shortness of breath and wheezing. Cardiovascular: Negative for chest pain, palpitations and leg swelling. Gastrointestinal: Negative for constipation, diarrhea, nausea and vomiting. Endocrine: Negative for cold intolerance and heat intolerance. Genitourinary: Negative for frequency. Negative for urinary incontinence and urinary retention. Musculoskeletal: Negative for back pain, joint swelling, myalgias and neck pain. Skin: Negative for rash (Negative for hives and skin lesions.). Allergic/Immunologic: Negative for environmental allergies and food allergies. Negative for contact allergy, seasonal allergies. Neurological: Negative for dizziness, seizures, syncope, weakness, light- headedness, numbness (Negative for numbness in extremities.) and headaches. Hematological: Does not bruise/bleed easily. Psychiatric/Behavioral: The patient is not nervous/anxious. Negative for depression. OBJECTIVE: BP 147/70 Pulse 61 Resp 16 Ht 5' 2.5" (1.59m) Wt 121 lb 11.1 oz (55.2kg) SpO2 97% BMI 21.89 kg/(m^2). PHYSICAL EXAM: Mental State : Alert. Attention span and concentration normal for patient's age. Speech normal, fluent. No receptive or expressive speech deficit. Recent and remote memory normal. Orientation : Oriented to person, place and time. Higher Cortical Function : Intact speech and language. Comprehension normal. Fund of knowledge intact for pt level of education. Cranial Nerves : II: No visual field cut, no blurring. Makes and sustains eye contact. III, IV, : No double vision or lid drooping. Pupils equal and reactive to light. Extraocular muscles intact. No nystagmus. V: Normal sensation on the face, normal jaw movements. VII: No paresis on either side. VIII: No gross hearing deficit IX: Good and equal shoulder shrugs. XII: Tongue midline, no fasciculations. Sensory: SILT. Normal Sensation in bilateral upper and bilateral lower extremities to touch and noxious stimuli. Motor: Normal muscle tone and bulk. No spasticity, tremor or uncontrollable movements. Strength: Upper Extremities : R L Deltoid 5/5 5/5 Biceps 5/5 5/5 Triceps 5/5 5/5 Wrist Ext 5/5 5/5 Wrist Flx 5/5 5/5 Hand Int 5/5 5/5 Lower Extremities : Hip Flexors 5/5 5/5 Hip Extensors 5/5 5/5 Hip Abductors 5/5 5/5 Straight leg Neg Neg Ankle dorsiflex 5/5 5/5 Ankle Plantar 5/5 5/5 Reflexes : Biceps 2+ 2+ Triceps 2+ 2+ Wrist 2+ 2+ Patellar 2+ 2+ Achilles 2+ 2+ Cerebellar Function : Normal finger to nose. Normal rapid alternating movements. No ataxia. Negative Romberg. Gait and Station: Normal gait. No assistive device usage. Pulmonary: Lungs without cough, audible wheeze. Respirations unlabored. Cardiac: Regular rate and rhythm. No murmer, gallop or rub. IMAGING: MRI Brain WO/W IVCON performed on 10/10/24 demonstrates: IMPRESSION: 1. 1.8 x 1.3 x 1.8 cm homogeneously enhancing dural based mass in the anterior portion of the left side posterior fossa at the junction of the left petrous bone/left tentorial leaflet. MRI characteristics are most consistent with a meningioma. 2. 9.3 x 10 x 10 mm inhomogeneous enhancing extra-axial dural based mass anterior right frontal region. MRI characteristics most consistent with partly calcified meningioma. 3. No MRI evidence of traumatic brain injury/hemorrhage ASSESSMENT/PLAN: 1. Intracranial meningioma (HCC) - ICD9: 225.2, ICD10: D32.0 Patient with 2 asymptomatic meningiomas as described above who is here after the MRI scan was completed. With 2 asymptomatic meningioma was discovered for the first time without evidence of prior scans it hard to determine the rate of growth of these lesions and I am not going to recommend intervention for these unless we demonstrate growth therefore I advised that we see her in 4 to 5 months to get a short-term follow-up and get an idea about growth of any of these lesions. So we will see her then review the new scan to compare and advise. - MRI BRAIN WO/W IVCON - IV CONTRAST (RADIOLOGY PROCEDURE) - NOT ON MAR Jerzy Glass MD FOLLOW UP: Return in about 5 months (around 03/16/2025) for review of MRI. Please Note: This note has been partially generated using [employer], a speech recognition software program, and may contain errors including punctuation, grammar, spelling, gender, and inappropriate words or phrases that pertain to the system. documented in [facility] NoteHNO ID: [id number] Author: JERZY GLASS MD Service: ? Author Type: Physician Type: Progress Notes Filed: 10/17/2024 10:30 Note Text: NEUROSURGERY FOLLOW UP OFFICE NOTE Dr. Jerzy Glass MD, [facility] Date of visit: October 17, 2024 Patient Name: Ms.Georgia Мария Mariee Date of : 1935 Current Age: [age] year old Sex: female MRN/E# [id number] Last Office Visit: 10/10/2024 CHIEF COMPLAINT: Patient presents with: Established Patient SUBJECTIVE: The patient presents as a follow up with imaging (MRI B) for evaluation. This is an 89 year old female with no significant PMHx who was referred by Dr. Joyce Roe for neurosurgical evaluation. She was seen with her daughter for consult on 10/10/[address] B. She reported that she had a GLF on 09/30/24 and was taken to an outside ED. The fall caused her to strike her face. LOC was unknown. Workup was completed and showed a fracture of the right nasal bone (minimally depressed), no fracture of the cervical spine and an incidental finding of a meningioma arising from the junction of the left tentorium and petrous temporal bone. She reported that she was doing well in regard to the recent fall. She stated that she had been having difficulty with her gait and balance over the last few years. She also felt as if her handwriting had worsened. Her penmanship is very small. Otherwise no issues. Neurologically she was intact with the exception of mild gait disturbance. CT was reviewed and showed a suspected meningioma arising from the junction of the left tentorium and petrous temporal bone. Treatment options were discussed with the patient and her daughter. Recommendation was to obtain a MRI brain to further define this lesion and to determine a treatment plan. They were advised that if indeed this turns out to be a meningioma surgical excision is not recommended. Today she states she is overall doing well. She denies any new or concerning issues since last visit. She presents for image review, evaluation and plan of care. MEDICATIONS: Keppra: No Dexamethasone: No SYMPTOMS: None PREVIOUS CONSERVATIVE TREATMENTS: None SURGICAL RISK: Smoker: Never Diabetic: No Anticoagulants / Antiplatelets: ASA 81 mg Occupation: Retired PREVIOUS NEUROSURGERY: None PAIN EVALUATION No data found in the last 1 encounters. PAST MEDICAL HISTORY Diagnosis Date Acute myocardial infarction of other specified sites, episode of care unspecified 1998 Myocardial Infarction Coronary atherosclerosis of unspecified type of vessel, pascua yaqui or graft Coronary artery disease PAST SURGICAL HISTORY Procedure Laterality Date COLONOSCOPY FLX DX W/COLLJ SPEC WHEN PFRMD 01/20/16 Colonoscopy EXC CYST/ABERRANT BREAST TISSUE OPEN 1/> LESION 05/02/2008 Left [place] LAPAROSCOPY SURG CHOLECYSTECTOMY Cholecystectomy, lap PAST SURGICAL HISTORY OF 2013 heart bypass TOTAL ABDOMINAL HYSTERECT W/WO RMVL TUBE OVARY Hysterectomy, JYOTI - ovaries still present TRANSCATH STENT INIT VESSEL,PERCUT 1998 Transcath stent init vessel percut FAMILY HISTORY Problem Relation Age of Onset Breast Cancer Mother Cancer Mother ovarian Cancer Father throat Breast Cancer Sister Breast Cancer Daughter ALLERGIES No Known Allergies Current Outpatient Medications Medication Sig Dispense Refill hydroCHLOROthiazide 25 mg tablet 25 mg. Ibandronate 150 mg tablet omeprazole (PRILOSEC) 20 mg capsule Take 1 capsule by mouth every afternoon. amLODIPine (NORVASC) 10 mg tablet Take 1 tablet by mouth every afternoon. rosuvastatin (CRESTOR) 20 mg tablet Take 1 tablet by mouth every afternoon. GLUC/LÓPEZ-MSM#1/C/KRISTIE/REAGAN/BOR (OSTEO BI-FLEX TRIPLE STRENGTH ORAL) Take 2 tablets by mouth once daily. ATENOLOL 25 MG TAB Take one(1) tablet daily. 0 ASPIRIN 81 MG CHEWABLE TAB Take one(1) tablet daily. 0 calcium carbonate/vitamin d3(CALCIUM 600 + D 600 MG-400 UNIT TAB) 0 iv contrast (will be provided with radiology test) MRI Brain Inject, intravenously, once for 1 dose.No IV access, insert saline lock prior to beginning of sedation, infusion, injection of imaging exam.Discontinue saline lock post exam. If Pt. has a central line or IVAD, may access for administration according to line specific nursing protocol.Once exam is complete flush line and de-access according to line specific nursing protocol in the MR contrast administration guidelines link 1 Each 0 No current facility-administered medications for this visit. REVIEW OF SYSTEMS: Review of Systems Constitutional: Negative for chills, diaphoresis (Negative for night sweats.) and fever. HENT: Negative for ear discharge and rhinorrhea. Eyes: Negative for discharge. Respiratory: Negative for cough, shortness of breath and wheezing. Cardiovascular: Negative for chest pain, palpitations and leg swelling. Gastrointestinal: Negative for constipation, diarrhea, nausea and vomiting. Endocrine: Negative fo (more content not included)...[facility]02-04[facility] History of Present illness Narrative* Jerzy Glass MD - 10/10/2024 11:00 AM EST NEUROSURGERY CONSULT NOTE Dr. Jerzy Glass MD, FACS Date of visit: October 10, 2024 Patient Name: Ms.Georgia Мария Mariee Date of : 1935 Current Age: [age] year old Sex: female MRN/E# [id number] CHIEF COMPLAINT: Patient presents with: New Patient . HISTORY OF PRESENT ILLNESS : The patient is a 89 year old female with no significant PMHx who is referred by Dr. Joyce Roe for neurosurgical evaluation. The patient presents as a new patient with her daughter with imaging (CT Head) for evaluation. Patient had a GLF on 09/30/24 and was taken to an outside ED. The fall caused her to strike her face. LOCwas unknown. Workup was completed and showed a fracture of the right nasal bone (minimally depressed), no fracture of the cervical spine and an incidental finding of a meningioma arising from the junction of the left tentorium and petrous temporal bone. Recommendation was to be seen by Neurosurgeryfor further evaluation prompting her visit today. She states she is overall doing well in regard tothe recent fall. States she has had difficulty with her gait and balance especially over the last few years. She also feels as if her handwriting has worsened. Her penmanship is very small. Otherwiseno issues. She presents for image review, evaluation and plan of care. SYMPTOMS: None MEDICATIONS: Anticonvulsant: No Dexamethasone: No PREVIOUS CONSERVATIVE TREATMENTS: None SURGICAL RISK: Smoker: Never Diabetic: No Anticoagulants / Antiplatelets: ASA 81 mg Occupation: Retired PREVIOUS NEUROSURGERY: None PAIN EVALUATION No data found in the last 1 encounters. PAST MEDICAL HISTORY Diagnosis Date Acute myocardial infarction of other specified sites, episode of care unspecified 1998 Myocardial Infarction Coronary atherosclerosis of unspecified type of vessel, pascua yaqui or graft Coronary artery disease PAST SURGICAL HISTORY Procedure Laterality Date COLONOSCOPY FLX DX W/COLLJ SPEC WHEN PFRMD 01/20/16 Colonoscopy EXC CYST/ABERRANT BREAST TISSUE OPEN LESION 05/02/2008 Left [place] LAPAROSCOPY SURG CHOLECYSTECTOMY Cholecystectomy, lap PAST SURGICAL HISTORY OF 2013 heart bypass TOTAL ABDOMINAL HYSTERECT W/WO RMVL TUBE OVARY Hysterectomy, JYOTI - ovaries still present TRANSCATH STENT INIT VESSEL,PERCUT 1998 Transcath stent init vessel percut FAMILY HISTORY Problem Relation Age of Onset Breast Cancer Mother Cancer Mother ovarian Cancer Father throat Breast Cancer Sister Breast Cancer Daughter ALLERGIES No Known Allergies Current Outpatient Medications Medication Sig Dispense Refill Ibandronate 150 mg tablet omeprazole (PRILOSEC) 20 mg capsule Take 1 capsule by mouth every afternoon. amLODIPine (NORVASC) 10 mg tablet Take 1 tablet by mouth every afternoon. rosuvastatin (CRESTOR) 20 mg tablet Take 1 tablet by mouth every afternoon. GLUC/LÓPEZ-MSM#1/C/KRISTIE/REAGAN/BOR (OSTEO BI-FLEX TRIPLE STRENGTH ORAL) Take 2 tablets by mouth once daily. ATENOLOL 25 MG TAB Take one(1) tablet daily. 0 ASPIRIN 81 MG CHEWABLE TAB Take one(1) tablet daily. 0 calcium carbonate/vitamin d3(CALCIUM 600 + D 600 MG-400 UNIT TAB) 0 iv contrast (will be provided with radiology test) MRI Brain Inject, intravenously, once for 1 dose.No IV access, insert saline lock prior to beginning of sedation, infusion, injection of imaging exam.Discontinue saline lock post exam. If Pt. has a central line or IVAD, may access for administration according to line specific nursing protocol.Once exam is complete flush line and de-access according to line specific nursing protocol in the MR contrast administration guidelines link 1 Each 0 No current facility-administered medications for this visit. REVIEW OF SYSTEMS Review of Systems Constitutional: Negative for chills, diaphoresis (Negative for night sweats.) and fever. HENT: Negative for ear discharge and rhinorrhea. Eyes: Negative for discharge. Respiratory: Negative for cough, shortness of breath and wheezing. Cardiovascular: Negative for chest pain, palpitations and leg swelling. Gastrointestinal: Negative for constipation, diarrhea, nausea and vomiting. Endocrine: Negative for cold intolerance and heat intolerance. Genitourinary: Negative for frequency. Negative for urinary incontinence and urinary retention. Musculoskeletal: Positive for gait problem. Negative for back pain, joint swelling, myalgias and neck pain. Skin: Negative for rash (Negative for hives and skin lesions.). Allergic/Immunologic: Negative for environmental allergies and food allergies. Negative for contact allergy, seasonal allergies. Neurological: Negative for dizziness, seizures, syncope, weakness, light- headedness, numbness (Negative for numbness in extremities.) and headaches. Hematological: Does not bruise/bleed easily. Psychiatric/Behavioral: The patient is not nervous/anxious. Negative for depression. OBJECTIVE: BP 159/70 Pulse 60 Resp 16 Ht 5' 2.5" (1.59m) Wt 125 lb 10.6 oz (57.0kg) SpO2 99% BMI 22.60 kg/(m^2). PHYSICAL EXAM: Mental State : Alert. Attention span and concentration normal for patient's age. Speech normal, fluent. No receptive or expressive speech deficit. Recent and remote memory normal. Orientation : Oriented to person, place and time. Higher Cortical Function : Intact speech and language. Comprehension normal. Fund of knowledge intact for pt level of education. Cranial Nerves : II: No visual field cut, no blurring. Makes and sustains eye contact. III, IV, : No double vision or lid drooping. Pupils equal and reactive to light. Extraocular muscles intact. No nystagmus. V: Normal sensation on the face, normal jaw movements. VII: No paresis on either side. VIII: No gross hearing deficit IX: Good and equal shoulder shrugs. XII: Tongue midline, no fasciculations. Sensory: SILT. Normal Sensation in bilateral upper and bilateral lower extremities to touch and noxious stimuli. Motor: Normal muscle tone and bulk. No spasticity, tremor or uncontrollable movements. Strength: Upper Extremities : R L Deltoid 5/5 5/5 Biceps 5/5 5/5 Triceps 5/5 5/5 Wrist Ext 5/5 5/5 Wrist Flx 5/5 5/5 Hand Int 5/5 5/5 Lower Extremities : Hip Flexors 5/5 5/5 Hip Extensors 5/5 5/5 Hip Abductors 5/5 5/5 Straight leg Neg Neg Ankle dorsiflex 5/5 5/5 Ankle Plantar 5/5 5/5 Reflexes : Biceps 2+ 2+ Triceps 2+ 2+ Wrist 2+ 2+ Patellar 2+ 2+ Achilles 2+ 2+ Cerebellar Function : Normal finger to nose. Normal rapid alternating movements. No ataxia. Negative Romberg. Gait and Station: Normal gait, slightly compensated at times. No assistive device usage. Pulmonary: Lungs without cough, audible wheeze. Respirations unlabored. Cardiac: Regular rate and rhythm. No murmer, gallop or rub. IMAGING: CT head WO IVCON performed 09/30/24 at demonstrates: CT HEAD: 1. No acute intracranial abnormality or calvarial fracture. 2. 1.9 cm x 1.1 cm meningioma arising from the junction of the left tentorium and petrous temporal bone. ASSESSMENT/PLAN: 1. Intracranial meningioma (HCC) - ICD9: 225.2, ICD10: D32.0 (primary diagnosis) This is a new patient presentation referred by Dr. Roe because of an incidental lesion in the left petrous tentorium region noted on a CT scan that was done after a fall with trauma to the head. The radiology report indicated a 1.9 x 1.1 cm meningioma arising from the junction of the left tentorium and petrous temporal bone. I reviewed the patient's history and examination. She has no neurological deficits secondary to this newly discovered lesion. I had a long discussion with the patient and her daughter about the possibilities this lesion could be most likely it is a meningioma the rateof growth of which is indeterminate as she has never had a prior CAT scan or MRI scan. I recommended an MRI scan without and with contrast enhancement to evaluate this lesion better before we discussed options of treatment. Option #1 is to do continuous monitoring of this lesion if indeed by MRI scan confirms a meningioma Option #2 would be to consider gamma knife radiosurgery. If indeed this turns out to be most likely meningioma by MRI scan I would not recommend surgical excision by craniotomy. I will evaluate the MRI scan and advised the patient as soon as it is done. - MRI BRAIN WO/W IVCON - IV CONTRAST (RADIOLOGY PROCEDURE) - NOT ON MAR - MRI BRAIN WO/W IVCON - IV CONTRAST (RADIOLOGY PROCEDURE) - NOT ON MAR 2. Benign neoplasm of meninges (HCC) - ICD9: 225.2, ICD10: D32.9 - MRI BRAIN WO/W IVCON - IV CONTRAST (RADIOLOGY PROCEDURE) - NOT ON MAR - MRI BRAIN WO/W IVCON - IV CONTRAST (RADIOLOGY PROCEDURE) - NOT ON MAR Jerzy Glass MD Follow Up: Return for review of MRI. This note was partially generated using [email or web address] voice recognition system, and there may be some incorrect words, spellings, and punctuation that were not noted in checking the note before saving. documented in this encounter[facility] NoteHNO ID: [id number] Author: JERZY GLASS MD Service: ? Author Type: Physician Type: Progress Notes Filed: 10/10/2024 11:13 Note Text: NEUROSURGERY CONSULT NOTE Dr. Jerzy Glass MD, [facility] Date of visit: October 10, 2024 Patient Name: Ms.Georgia Мария Mariee Date of : 1935 Current Age: [age] year old Sex: female MRN/E# [id number] CHIEF COMPLAINT: Patient presents with: New Patient . HISTORY OF PRESENT ILLNESS : The patient is a 89 year old female with no significant PMHx who is referred by Dr. Joyce Roe for neurosurgical evaluation. The patient presents as a new patient with her daughter with imaging (CT Head) for evaluation. Patient had a GLF on 09/30/24 and was taken to an outside ED. The fall caused her to strike her face. LOC was unknown. Workup was completed and showed a fracture of the right nasal bone (minimally depressed), no fracture of the cervical spine and an incidental finding of a meningioma arising from the junction of the left tentorium and petrous temporal bone. Recommendation was to be seen by Neurosurgery for further evaluation prompting her visit today. She states she is overall doing well in regard to the recent fall. States she has had difficulty with her gait and balance especially over the last few years. She also feels as if her handwriting has worsened. Her penmanship is very small. Otherwise no issues. She presents for image review, evaluation and plan of care. SYMPTOMS: None MEDICATIONS: Anticonvulsant: No Dexamethasone: No PREVIOUS CONSERVATIVE TREATMENTS: None SURGICAL RISK: Smoker: Never Diabetic: No Anticoagulants / Antiplatelets: ASA 81 mg Occupation: Retired PREVIOUS NEUROSURGERY: None PAIN EVALUATION No data found in the last 1 encounters. PAST MEDICAL HISTORY Diagnosis Date Acute myocardial infarction of other specified sites, episode of care unspecified 1998 Myocardial Infarction Coronary atherosclerosis of unspecified type of vessel, [place] or graft Coronary artery disease PAST SURGICAL HISTORY Procedure Laterality Date COLONOSCOPY FLX DX W/COLLJ SPEC WHEN PFRMD 01/20/16 Colonoscopy EXC CYST/ABERRANT BREAST TISSUE OPEN / LESION 05/02/2008 Left Berast LAPAROSCOPY SURG CHOLECYSTECTOMY Cholecystectomy, lap PAST SURGICAL HISTORY OF 2013 heart bypass TOTAL ABDOMINAL HYSTERECT W/WO RMVL TUBE OVARY Hysterectomy, JYOTI - ovaries still present TRANSCATH STENT INIT VESSEL,ALINA 1998 Transcath stent init vessel percut FAMILY HISTORY Problem Relation Age of Onset Breast Cancer Mother Cancer Mother ovarian Cancer Father throat Breast Cancer Sister Breast Cancer Daughter ALLERGIES No Known Allergies Current Outpatient Medications Medication Sig Dispense Refill Ibandronate 150 mg tablet omeprazole (PRILOSEC) 20 mg capsule Take 1 capsule by mouth every afternoon. amLODIPine (NORVASC) 10 mg tablet Take 1 tablet by mouth every afternoon. rosuvastatin (CRESTOR) 20 mg tablet Take 1 tablet by mouth every afternoon. GLUC/LÓPEZ-MSM#1/C/KRISTIE/REAGAN/BOR (OSTEO BI-FLEX TRIPLE STRENGTH ORAL) Take 2 tablets by mouth once daily. ATENOLOL 25 MG TAB Take one(1) tablet daily. 0 ASPIRIN 81 MG CHEWABLE TAB Take one(1) tablet daily. 0 calcium carbonate/vitamin d3(CALCIUM 600 + D 600 MG-400 UNIT TAB) 0 iv contrast (will be provided with radiology test) MRI Brain Inject, intravenously, once for 1 dose.No IV access, insert saline lock prior to beginning of sedation, infusion, injection of imaging exam.Discontinue saline lock post exam. If Pt. has a central line or IVAD, may access for administration according to line specific nursing protocol.Once exam is complete flush line and de-access according to line specific nursing protocol in the MR contrast administration guidelines link 1 Each 0 No current facility-administered medications for this visit. REVIEW OF SYSTEMS Review of Systems Constitutional: Negative for chills, diaphoresis (Negative for night sweats.) and fever. HENT: Negative for ear discharge and rhinorrhea. Eyes: Negative for discharge. Respiratory: Negative for cough, shortness of breath and wheezing. Cardiovascular: Negative for chest pain, palpitations and leg swelling. Gastrointestinal: Negative for constipation, diarrhea, nausea and vomiting. Endocrine: Negative for cold intolerance and heat intolerance. Genitourinary: Negative for frequency. Negative for urinary incontinence and urinary retention. Musculoskeletal: Positive for gait problem. Negative for back pain, joint swelling, myalgias and neck pain. Skin: Negative for rash (Negative for hives and skin lesions.). Allergic/Immunologic: Negative for environmental allergies and food allergies. Negative for contact allergy, seasonal allergies. Neurological: Negative for dizziness, seizures, syncope, weakness, light-headedness, numbness (Negative for numbness in extremities.) and headaches. Hematologi (more content not included)...[facility]01-[facility] Telephone encounter Note* Telephone Encounter - Heath Nicolette - 10/05/2024 9:24 AM EST Received a referral for patient to be seen by one of our providers. Made 1st attempt to contact patient to discuss scheduling. Patient did not answer. Left a voicemail requesting patient call the office to schedule. Patient being seen for meningioma, will need to bring imaging from of Head[facility]Brainif possible. [facility]01-30-[facility] Miscellaneous Notes* Telephone Encounter - Nicolette Joe - 10/05/2024 9:24 AM EST Received a referral for patient to be seen by one of our providers. Made 1st attempt to contact patient to discuss scheduling. Patient did not answer. Left a voicemail requesting patient call the office to schedule. Patient being seen for meningioma, will need to bring imaging from [facility]/Brain possible. documented in this encounterF[facility]01-24-2025 Evaluation note* Diagnosis Onset Date Resolution Status Admit Date Colitis acute September 29, 2024 12:52pm [facility] Work Phone: 1(263) 596-891601-24-2025 [facility] Medical Records Department [address] [place] [id number] History Physical Exam 09/29/24 1358 MR#: [id number] Acct: [id number] Name: PETER MARIEE Rep #: [id number] : 1935 89 From: Abdi Friend DO PCP: Dr. Joyce Roe MD Status:[facility] Location: [place] [address] HPI - General General Date of Admission: 09/29/24 Date of Service: 09/29/24 Chief Complaint: colitis HPI Narrative PETER MARIEE, is a 89 F who presents for an outpatient colonoscopy. Pt was recently hospitalized 06.24.24-06.26.24 for sigmoid and rectal colitis with diarrhea and abdominal pain. She did not undergo colonoscopy in the hospital and was recommended to have one as an outpatient. She was put on IV antibiotic therapy and sent home with 14 days of cipro and Flagyl. OV 11..24 Pt has been doing ok since her hospitalization. She continues to have loose stools. She tells me yesterday she had 6 episodes of loose stool. The stools are more formed then prior and she is no longer having abdominal pain. She as some concerns regarding constipation as she typically struggles with this. She is leaving for [place] tomorrow. SHe denies heartburn, constipation, n/v, or melena. CT abdomen/pelvis 06.24.24; 1. Mild intramural edema in the rectal wall and proximal sigmoid colon without associated diverticulosis. This may be secondary to mild proctitis and mild colitis. Proctoscopy and colonoscopy will be helpful. 2. No bowel obstruction, mass or lymphadenopathy in the abdomen and pelvis. 3. Mild dilatation of the common bile is most likely related to post cholecystectomy. No intrahepatic biliary ductal dilatation. 4. 3 cm nonenhancing low-attenuation lesion in segment 2 of the liver parenchyma with CT number of 10.29 Hounsfield units. ACR White Paper guidelines (Jael, et al. JACR 2017; 14(11):3918-6093.) suggest no follow-up is necessary. Orders CBC W/Diff, Automated Today K52.9 - Noninfective gastroenteritis and colitis, unspecified Stool Lactoferrin/WBC Today K58.9 - Irritable bowel syndrome, unspecified Calprotectin, Stool Today K52.9 - Noninfective gastroenteritis and colitis, unspecified Medications: New colestipol 1 g PO ONCE 60 tabs 2RF PFSH Medical History Wears hearing aid Loss of hearing Wears glasses Cardiology follow-up encounter Myocardial infarct Hypertension Greater trochanteric bursitis of right hip Trochanteric bursitis of right hip Essential (primary) hypertension GERD (gastroesophageal reflux disease) Osteopenia Gallstones Back problem Generalized osteoarthrosis 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 HLD (hyperlipidemia) Home Medications ???Medication ???Instructions ???Recorded ???Last Taken ???Type aspirin 81 mg tablet,delayed 81 mg PO QDAY 01/24/18 09/26/24 History release folic acid 800 mcg tablet 0.8 mg PO DAILY 01/09/20 06/23/24 History glucosamine-chondroitin 250 mg-200 1 tab PO DAILY 01/09/20 06/23/24 History mg tablet (Osteo Bi-Flex) omeprazole 20 mg capsule,delayed 20 mg PO DAILY 01/09/20 06/23/24 History release rosuvastatin 20 mg tablet 20 mg PO QHS 02/26/23 06/22/24 History acetaminophen 500 mg tablet 500 mg PO BID 02/11/24 06/23/24 History (Tylenol Extra Strength) cholecalciferol (vitamin D3) 25 25 mcg PO DAILY 02/11/24 06/23/24 History mcg (1,000 unit) tablet ibandronate 150 mg tablet 150 mg PO QMONTH 02/11/24 05/28/24 History atenolol 25 mg tablet 25 mg PO QDAY #90 tabs 05/04/24 09/29/24 12:30 Rx amlodipine 10 mg tablet 10 mg PO DAILY #90 tabs 05/25/24 09/29/24 12:30 Rx calcium carbonate 1,000 mg PO DAILY 06/24/24 06/23/24 History vitamin B comp and C no.3 15 mg-10 1 cap PO DAILY 06/24/24 06/23/24 History mg-50 mg-5 mg-300 mg capsule (B Complex Plus Vitamin C) hydrochlorothiazide 25 mg tablet 25 mg PO DAILY 09/26/24 Unknown History Allergy/AdvReac Type Severity Reaction Status Date / Time No Known Allergies Allergy Verified 09/29/24 13:10 Family History Mother Cancer Ovarian cancer Heart disease Breast cancer Hypertension Valvular heart disease Father Cancer throat cancer Asthma Sister Breast cancer Daughter Cancer Surgical History History of coronary artery stent placement History of left heart catheterization (01/22/20) History of coronary angioplasty (08/1999) 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) H/O left breast biopsy History of ovarian cystectomy History of appendectomy Hx of cholecystectomy H/O: hysterectomy Social History Smoking S (more content not included)...[facility] Center[facility] noteNo assessment information availableWooSelect Medical [facility], [facility] Work Phone: Evaluation note* Diagnosis Intracranial meningioma (HCC)- Primary Benign neoplasm of cerebral meninges Benign neoplasm of meninges (HCC) Benign neoplasm of cerebral meninges [facility]* Diagnosis Intracranial meningioma (HCC) Benign neoplasm of cerebral meninges Benign neoplasm of meninges (HCC) Benign neoplasm of cerebral meninges [facility]* Diagnosis Intracranial meningioma (HCC)- Primary Benign neoplasm of cerebral meninges documented in this encounter [facility] [place] [facility]* Diagnosis Left sided colitis without complications (HCC)- Primary Left sided ulcerative (chronic) colitis documented [facility] this encounter [facility] [place] [facility]* Diagnosis Intracranial meningioma (HCC) Benign neoplasm of cerebral meninges documented in this encounter [facility] [place] [facility]* Diagnosis Intracranial meningioma (HCC)- Primary Benign neoplasm of cerebral meninges documented in this encounter [facility] Discharge instructionsAmbulatory Orders* Occupational Therapy Referral Location: None Selected * Physical Therapy Referral Location: None Selected [facility] Work Phone: Instructions* Name Dates Details patient instruction Indication:BMI 23.0-23.9, adult Start:17-Jan-2021 Instruction Type:Provider Instructions for Treatment How to Access Health Informa tion Online using Patient Portal and [employer] Apps Indication:BMI 23.0-23.9, adult Start:17-Jan-2021 Instruction Type:Patient Education How to access health informa tion online Indication:Current nonsmoker (Renamed from Current non-smoker) Start:28-Jun-2020 Instruction Type:Patient Education How to access health informa tion online - Detail Indication:Current nonsmoker (Renamed from Current non-smoker) Start:28-Jun-2020 Instruction Type:Patient Education Patient Instructions Indication:Current nonsmoker (Renamed from Current non-smoker) Start:28-Jun-2020 Instruction Type:Provider Instructions for Treatment How to access health informa tion online Indication:Abnormal fasting glucose Start:30-Jan-2020 Instruction Type:Patient Education How to access health informa tion online - Detail Indication:Abnormal fasting glucose Start:30-Jan-2020 Instruction Type:Patient Education Patient Instructions Indication:Abnormal fasting glucose Start:30-Jan-2020 Instruction Type:Provider Instructions for Treatment How to access health informa tion online Indication:Annual Medicare Physical (Renamed from Medicare annual wellness visit, subsequent) Start:31-Jul-2019 Instruction Type:Patient Education How to access health informa tion online - Detail Indication:Annual Medicare Physical (Renamed from Medicare annual wellness visit, subsequent) Start:31-Jul-2019 Instruction Type:Patient Education Patient Instructions Indication:Annual Medicare Physical (Renamed from Medicare annual wellness visit, subsequent) Start:31-Jul-2019 Instruction Type:Provider Instructions for Treatment How to access health informa tion online Indication:Annual Medicare Physical (Renamed from Medicare annual wellness visit, subsequent) Start:02-Feb-2019 Instruction Type:Patient Education How to access health informa tion online - Detail Indication:Annual Medicare Physical (Renamed from Medicare annual wellness visit, subsequent) Start:02-Feb-2019 Instruction Type:Patient Education Patient Instructions Indication:Annual Medicare Physical (Renamed from Medicare annual wellness visit, subsequent) Start:02-Feb-2019 Instruction Type:Provider Instructions for Treatment How to access health informa tion online Indication:Current nonsmoker (Renamed from Current non-smoker) Start:01-Aug-2018 Instruction Type:Patient Education How to access health informa tion online - Detail Indication:Current nonsmoker (Renamed from Current non-smoker) Start:01-Aug-2018 Instruction Type:Patient Education Patient Instructions Indication:Current nonsmoker (Renamed from Current non-smoker) Start:01-Aug-2018 Instruction Type:Provider Instructions for Treatment How to access health informa tion online Indication:Osteoarthritis Start:04-Mar-2018 Instruction Type:Patient Education How to access health informa tion online - Detail Indication:Osteoarthritis Start:04-Mar-2018 Instruction Type:Patient Education Patient Instructions Indication:Osteoarthritis Start:04-Mar-2018 Instruction Type:Provider Instructions for Treatment How to access health informa tion online Indication:Anterior knee pain, left Start:18-Jan-2018 Instruction Type:Patient Education How to access health informa tion online - Detail Indication:Anterior knee pain, left Start:18-Jan-2018 Instruction Type:Patient Education Patient Instructions Indication:Anterior knee pain, left Start:18-Jan-2018 Instruction Type:Provider Instructions for Treatment How to access health informa tion online Indication:BMI 25.0-25.9,adult Start:13-Dec-2017 Instruction Type:Patient Education How to access health informa tion online - Detail Indication:BMI 25.0-25.9,adult Start:13-Dec-2017 Instruction Type:Patient Education Patient Instructions Indication:BMI 25.0-25.9,adult Start:13-Dec-2017 Instruction Type:Provider Instructions for Treatment How to access health informa tion online Indication:Anterior knee pain, left Start:02-Aug-2017 Instruction Type:Patient Education How to access health informa tion online - Detail Indication:Anterior knee pain, left Start:02-Aug-2017 Instruction Type:Patient Education Patient Instructions Indication:Anterior knee pain, left Start:02-Aug-2017 Instruction Type:Provider Instructions for Treatment How to access health informa tion online Indication:Dermatitis of eyelids of both eyes Start:18-Mar-2017 Instruction Type:Patient Education How to access health informa tion online - Detail Indication:Dermatitis of eyelids of both eyes Start:18-Mar-2017 Instruction Type:Patient Education Patient Instructions Indication:Dermatitis of eyelids of both eyes Start:18-Mar-2017 Instruction Type:Provider Instructions for Treatment How to access health informa tion online Indication:Current nonsmoker (Renamed from Current non-smoker) Start:12-Mar-2017 Instruction Type:Patient Education How to access health informa tion online - Detail Indication:Current nonsmoker (Renamed from Current non-smoker) Start:12-Mar-2017 Instruction Type:Patient Education Patient Instructions Indication:Current nonsmoker (Renamed from Current non-smoker) Start:12-Mar-2017 Instruction Type:Provider Instructions for Treatment How to access health informa tion online Indication:Benign neoplasm of skin Start:01-Mar-2017 Instruction Type:Patient Education How to access health informa tion online - Detail Indication:Benign neoplasm of skin Start:01-Mar-2017 Instruction Type:Patient Education Patient Instructions Indication:Benign neoplasm of skin Start:01-Mar-2017 Instruction Type:Provider Instructions for Treatment How to access health informa tion online Indication:BMI 25.0-25.9,adult Start:26-Jan-2017 Instruction Type:Patient Education How to access health informa tion online - Detail Indication:BMI 25.0-25.9,adult Start:26-Jan-2017 Instruction Type:Patient Education Patient Instructions Indication:BMI 25.0-25.9,adult Start:26-Jan-2017 Instruction Type:Provider Instructions for Treatment How to access health informa tion online Indication:Current nonsmoker (Renamed from Current non-smoker) Start:27-Aug-2016 Instruction Type:Patient Education How to access health informa tion online - Detail Indication:Current nonsmoker (Renamed from Current non-smoker) Start:27-Aug-2016 Instruction Type:Patient Education Patient Instructions Indication:Current nonsmoker (Renamed from Current non-smoker) Start:27-Aug-2016 Instruction Type:Provider Instructions for Treatment How to access health informa tion online Indication:Annual Medicare Physical (Renamed from Medicare annual wellness visit, subsequent) Start:12-Jun-2016 Instruction Type:Patient Education How to access health informa tion online - Detail Indication:Annual Medicare Physical (Renamed from Medicare annual wellness visit, subsequent) Start:12-Jun-2016 Instruction Type:Patient Education Patient Instructions Indication:Annual Medicare Physical (Renamed from Medicare annual wellness visit, subsequent) Start:12-Jun-2016 Instruction Type:Provider Instructions for Treatment How to access health informa tion online Indication:Acute ankle pain, left Start:14-Aug-2015 Instruction Type:Patient Education How to access health informa tion online - Detail Indication:Acute ankle pain, left Start:14-Aug-2015 Instruction Type:Patient Education Patient Instructions Indication:Acute ankle pain, left Start:14-Aug-2015 Instruction Type:Provider Instructions for Treatment How to access health informa tion online - Detail Indication:Heartburn Start:07-Jun-2015 Instruction Type:Patient Education How to access health informa tion online Indication:Heartburn Start:07-Jun-2015 Instruction Type:Patient Education Patient Instructions Indication:Heartburn Start:07-Jun-2015 Instruction Type:Provider Instructions for Treatment How to access health informa tion online - Detail Indication:Lumbago with sciatica Start:29-Mar-2015 Instruction Type:Patient Education Patient Instructions Indication:Lumbago with sciatica Start:29-Mar-2015 Instruction Type:Provider Instructions for Treatment Patient Instructions Indication:Myalgia Start:25-Jan-2015 Instruction Type:Provider Instructions for Treatment Patient Instructions Indication:Myalgia Start:10-Jan-2015 Instruction Type:Provider Instructions for Treatment Patient Instructions Indication:Dysuria Start:06-Jun-2014 Instruction Type:Provider Instructions for Treatment Patient Instructions Indication:Rash, drug Start:05-Jan-2014 Instruction Type:Provider Instructions for Treatment [facility] Work Phone: Instructions* Name Dates Details patient instruction Indication:BMI 23.0-23.9, adult Start:17-Jan-2021 Instruction Type:Provider Instructions for Treatment How to Access Health Informa tion Online using Patient Portal and [employer] Apps Indication:BMI 23.0-23.9, adult Start:17-Jan-2021 Instruction Type:Patient Education How to access health informa tion online Indication:Current nonsmoker (Renamed from Current non-smoker) Start:28-Jun-2020 Instruction Type:Patient Education How to access health informa tion online - Detail Indication:Current nonsmoker (Renamed from Current non-smoker) Start:28-Jun-2020 Instruction Type:Patient Education Patient Instructions Indication:Current nonsmoker (Renamed from Current non-smoker) Start:28-Jun-2020 Instruction Type:Provider Instructions for Treatment How to access health informa tion online Indication:Abnormal fasting glucose Start:30-Jan-2020 Instruction Type:Patient Education How to access health informa tion online - Detail Indication:Abnormal fasting glucose Start:30-Jan-2020 Instruction Type:Patient Education Patient Instructions Indication:Abnormal fasting glucose Start:30-Jan-2020 Instruction Type:Provider Instructions for Treatment How to access health informa tion online Indication:Annual Medicare Physical (Renamed from Medicare annual wellness visit, subsequent) Start:31-Jul-2019 Instruction Type:Patient Education How to access health informa tion online - Detail Indication:Annual Medicare Physical (Renamed from Medicare annual wellness visit, subsequent) Start:31-Jul-2019 Instruction Type:Patient Education Patient Instructions Indication:Annual Medicare Physical (Renamed from Medicare annual wellness visit, subsequent) Start:31-Jul-2019 Instruction Type:Provider Instructions for Treatment How to access health informa tion online Indication:Annual Medicare Physical (Renamed from Medicare annual wellness visit, subsequent) Start:02-Feb-2019 Instruction Type:Patient Education How to access health informa tion online - Detail Indication:Annual Medicare Physical (Renamed from Medicare annual wellness visit, subsequent) Start:02-Feb-2019 Instruction Type:Patient Education Patient Instructions Indication:Annual Medicare Physical (Renamed from Medicare annual wellness visit, subsequent) Start:02-Feb-2019 Instruction Type:Provider Instructions for Treatment How to access health informa tion online Indication:Current nonsmoker (Renamed from Current non-smoker) Start:01-Aug-2018 Instruction Type:Patient Education How to access health informa tion online - Detail Indication:Current nonsmoker (Renamed from Current non-smoker) Start:01-Aug-2018 Instruction Type:Patient Education Patient Instructions Indication:Current nonsmoker (Renamed from Current non-smoker) Start:01-Aug-2018 Instruction Type:Provider Instructions for Treatment How to access health informa tion online Indication:Osteoarthritis Start:04-Mar-2018 Instruction Type:Patient Education How to access health informa tion online - Detail Indication:Osteoarthritis Start:04-Mar-2018 Instruction Type:Patient Education Patient Instructions Indication:Osteoarthritis Start:04-Mar-2018 Instruction Type:Provider Instructions for Treatment How to access health informa tion online Indication:Anterior knee pain, left Start:18-Jan-2018 Instruction Type:Patient Education How to access health informa tion online - Detail Indication:Anterior knee pain, left Start:18-Jan-2018 Instruction Type:Patient Education Patient Instructions Indication:Anterior knee pain, left Start:18-Jan-2018 Instruction Type:Provider Instructions for Treatment How to access health informa tion online Indication:BMI 25.0-25.9,adult Start:13-Dec-2017 Instruction Type:Patient Education How to access health informa tion online - Detail Indication:BMI 25.0-25.9,adult Start:13-Dec-2017 Instruction Type:Patient Education Patient Instructions Indication:BMI 25.0-25.9,adult Start:13-Dec-2017 Instruction Type:Provider Instructions for Treatment How to access health informa tion online Indication:Anterior knee pain, left Start:02-Aug-2017 Instruction Type:Patient Education How to access health informa tion online - Detail Indication:Anterior knee pain, left Start:02-Aug-2017 Instruction Type:Patient Education Patient Instructions Indication:Anterior knee pain, left Start:02-Aug-2017 Instruction Type:Provider Instructions for Treatment How to access health informa tion online Indication:Dermatitis of eyelids of both eyes Start:18-Mar-2017 Instruction Type:Patient Education How to access health informa tion online - Detail Indication:Dermatitis of eyelids of both eyes Start:18-Mar-2017 Instruction Type:Patient Education Patient Instructions Indication:Dermatitis of eyelids of both eyes Start:18-Mar-2017 Instruction Type:Provider Instructions for Treatment How to access health informa tion online Indication:Current nonsmoker (Renamed from Current non-smoker) Start:12-Mar-2017 Instruction Type:Patient Education How to access health informa tion online - Detail Indication:Current nonsmoker (Renamed from Current non-smoker) Start:12-Mar-2017 Instruction Type:Patient Education Patient Instructions Indication:Current nonsmoker (Renamed from Current non-smoker) Start:12-Mar-2017 Instruction Type:Provider Instructions for Treatment How to access health informa tion online Indication:Benign neoplasm of skin Start:01-Mar-2017 Instruction Type:Patient Education How to access health informa tion online - Detail Indication:Benign neoplasm of skin Start:01-Mar-2017 Instruction Type:Patient Education Patient Instructions Indication:Benign neoplasm of skin Start:01-Mar-2017 Instruction Type:Provider Instructions for Treatment How to access health informa tion online Indication:BMI 25.0-25.9,adult Start:26-Jan-2017 Instruction Type:Patient Education How to access health informa tion online - Detail Indication:BMI 25.0-25.9,adult Start:26-Jan-2017 Instruction Type:Patient Education Patient Instructions Indication:BMI 25.0-25.9,adult Start:26-Jan-2017 Instruction Type:Provider Instructions for Treatment How to access health informa tion online Indication:Current nonsmoker (Renamed from Current non-smoker) Start:27-Aug-2016 Instruction Type:Patient Education How to access health informa tion online - Detail Indication:Current nonsmoker (Renamed from Current non-smoker) Start:27-Aug-2016 Instruction Type:Patient Education Patient Instructions Indication:Current nonsmoker (Renamed from Current non-smoker) Start:27-Aug-2016 Instruction Type:Provider Instructions for Treatment How to access health informa tion online Indication:Annual Medicare Physical (Renamed from Medicare annual wellness visit, subsequent) Start:12-Jun-2016 Instruction Type:Patient Education How to access health informa tion online - Detail Indication:Annual Medicare Physical (Renamed from Medicare annual wellness visit, subsequent) Start:12-Jun-2016 Instruction Type:Patient Education Patient Instructions Indication:Annual Medicare Physical (Renamed from Medicare annual wellness visit, subsequent) Start:12-Jun-2016 Instruction Type:Provider Instructions for Treatment How to access health informa tion online Indication:Acute ankle pain, left Start:14-Aug-2015 Instruction Type:Patient Education How to access health informa tion online - Detail Indication:Acute ankle pain, left Start:14-Aug-2015 Instruction Type:Patient Education Patient Instructions Indication:Acute ankle pain, left Start:14-Aug-2015 Instruction Type:Provider Instructions for Treatment How to access health informa tion online - Detail Indication:Heartburn Start:07-Jun-2015 Instruction Type:Patient Education How to access health informa tion online Indication:Heartburn Start:07-Jun-2015 Instruction Type:Patient Education Patient Instructions Indication:Heartburn Start:07-Jun-2015 Instruction Type:Provider Instructions for Treatment How to access health informa tion online - Detail Indication:Lumbago with sciatica Start:29-Mar-2015 Instruction Type:Patient Education Patient Instructions Indication:Lumbago with sciatica Start:29-Mar-2015 Instruction Type:Provider Instructions for Treatment Patient Instructions Indication:Myalgia Start:25-Jan-2015 Instruction Type:Provider Instructions for Treatment Patient Instructions Indication:Myalgia Start:10-Jan-2015 Instruction Type:Provider Instructions for Treatment Patient Instructions Indication:Dysuria Start:06-Jun-2014 Instruction Type:Provider Instructions for Treatment Patient Instructions Indication:Rash, drug Start:05-Jan-2014 Instruction Type:Provider Instructions for Treatment [facility]; [facility] Work Phone: Instructions* Name Dates Details Patient Instructions Indication:Right hip pain Start:14-Feb-2021 Instruction Type:Provider Instructions for Treatment How to Access Health Informa tion Online using Patient Portal and [email or web address] Apps Indication:Right hip pain Start:14-Feb-2021 Instruction Type:Patient Education patient instruction Indication:BMI 23.0-23.9, adult Start:17-Jan-2021 Instruction Type:Provider Instructions for Treatment How to Access Health Informa tion Online using Patient Portal and [employer] Apps Indication:BMI 23.0-23.9, adult Start:17-Jan-2021 Instruction Type:Patient Education How to access health informa tion online Indication:Current nonsmoker (Renamed from Current non-smoker) Start:28-Jun-2020 Instruction Type:Patient Education How to access health informa tion online - Detail Indication:Current nonsmoker (Renamed from Current non-smoker) Start:28-Jun-2020 Instruction Type:Patient Education Patient Instructions Indication:Current nonsmoker (Renamed from Current non-smoker) Start:28-Jun-2020 Instruction Type:Provider Instructions for Treatment How to access health informa tion online Indication:Abnormal fasting glucose Start:30-Jan-2020 Instruction Type:Patient Education How to access health informa tion online - Detail Indication:Abnormal fasting glucose Start:30-Jan-2020 Instruction Type:Patient Education Patient Instructions Indication:Abnormal fasting glucose Start:30-Jan-2020 Instruction Type:Provider Instructions for Treatment How to access health informa tion online Indication:Annual Medicare Physical (Renamed from Medicare annual wellness visit, subsequent) Start:31-Jul-2019 Instruction Type:Patient Education How to access health informa tion online - Detail Indication:Annual Medicare Physical (Renamed from Medicare annual wellness visit, subsequent) Start:31-Jul-2019 Instruction Type:Patient Education Patient Instructions Indication:Annual Medicare Physical (Renamed from Medicare annual wellness visit, subsequent) Start:31-Jul-2019 Instruction Type:Provider Instructions for Treatment How to access health informa tion online Indication:Annual Medicare Physical (Renamed from Medicare annual wellness visit, subsequent) Start:02-Feb-2019 Instruction Type:Patient Education How to access health informa tion online - Detail Indication:Annual Medicare Physical (Renamed from Medicare annual wellness visit, subsequent) Start:02-Feb-2019 Instruction Type:Patient Education Patient Instructions Indication:Annual Medicare Physical (Renamed from Medicare annual wellness visit, subsequent) Start:02-Feb-2019 Instruction Type:Provider Instructions for Treatment How to access health informa tion online Indication:Current nonsmoker (Renamed from Current non-smoker) Start:01-Aug-2018 Instruction Type:Patient Education How to access health informa tion online - Detail Indication:Current nonsmoker (Renamed from Current non-smoker) Start:01-Aug-2018 Instruction Type:Patient Education Patient Instructions Indication:Current nonsmoker (Renamed from Current non-smoker) Start:01-Aug-2018 Instruction Type:Provider Instructions for Treatment How to access health informa tion online Indication:Osteoarthritis Start:04-Mar-2018 Instruction Type:Patient Education How to access health informa tion online - Detail Indication:Osteoarthritis Start:04-Mar-2018 Instruction Type:Patient Education Patient Instructions Indication:Osteoarthritis Start:04-Mar-2018 Instruction Type:Provider Instructions for Treatment How to access health informa tion online Indication:Anterior knee pain, left Start:18-Jan-2018 Instruction Type:Patient Education How to access health informa tion online - Detail Indication:Anterior knee pain, left Start:18-Jan-2018 Instruction Type:Patient Education Patient Instructions Indication:Anterior knee pain, left Start:18-Jan-2018 Instruction Type:Provider Instructions for Treatment How to access health informa tion online Indication:BMI 25.0-25.9,adult Start:13-Dec-2017 Instruction Type:Patient Education How to access health informa tion online - Detail Indication:BMI 25.0-25.9,adult Start:13-Dec-2017 Instruction Type:Patient Education Patient Instructions Indication:BMI 25.0-25.9,adult Start:13-Dec-2017 Instruction Type:Provider Instructions for Treatment How to access health informa tion online Indication:Anterior knee pain, left Start:02-Aug-2017 Instruction Type:Patient Education How to access health informa tion online - Detail Indication:Anterior knee pain, left Start:02-Aug-2017 Instruction Type:Patient Education Patient Instructions Indication:Anterior knee pain, left Start:02-Aug-2017 Instruction Type:Provider Instructions for Treatment How to access health informa tion online Indication:Dermatitis of eyelids of both eyes Start:18-Mar-2017 Instruction Type:Patient Education How to access health informa tion online - Detail Indication:Dermatitis of eyelids of both eyes Start:18-Mar-2017 Instruction Type:Patient Education Patient Instructions Indication:Dermatitis of eyelids of both eyes Start:18-Mar-2017 Instruction Type:Provider Instructions for Treatment How to access health informa tion online Indication:Current nonsmoker (Renamed from Current non-smoker) Start:12-Mar-2017 Instruction Type:Patient Education How to access health informa tion online - Detail Indication:Current nonsmoker (Renamed from Current non-smoker) Start:12-Mar-2017 Instruction Type:Patient Education Patient Instructions Indication:Current nonsmoker (Renamed from Current non-smoker) Start:12-Mar-2017 Instruction Type:Provider Instructions for Treatment How to access health informa tion online Indication:Benign neoplasm of skin Start:01-Mar-2017 Instruction Type:Patient Education How to access health informa tion online - Detail Indication:Benign neoplasm of skin Start:01-Mar-2017 Instruction Type:Patient Education Patient Instructions Indication:Benign neoplasm of skin Start:01-Mar-2017 Instruction Type:Provider Instructions for Treatment How to access health informa tion online Indication:BMI 25.0-25.9,adult Start:26-Jan-2017 Instruction Type:Patient Education How to access health informa tion online - Detail Indication:BMI 25.0-25.9,adult Start:26-Jan-2017 Instruction Type:Patient Education Patient Instructions Indication:BMI 25.0-25.9,adult Start:26-Jan-2017 Instruction Type:Provider Instructions for Treatment How to access health informa tion online Indication:Current nonsmoker (Renamed from Current non-smoker) Start:27-Aug-2016 Instruction Type:Patient Education How to access health informa tion online - Detail Indication:Current nonsmoker (Renamed from Current non-smoker) Start:27-Aug-2016 Instruction Type:Patient Education Patient Instructions Indication:Current nonsmoker (Renamed from Current non-smoker) Start:27-Aug-2016 Instruction Type:Provider Instructions for Treatment How to access health informa tion online Indication:Annual Medicare Physical (Renamed from Medicare annual wellness visit, subsequent) Start:12-Jun-2016 Instruction Type:Patient Education How to access health informa tion online - Detail Indication:Annual Medicare Physical (Renamed from Medicare annual wellness visit, subsequent) Start:12-Jun-2016 Instruction Type:Patient Education Patient Instructions Indication:Annual Medicare Physical (Renamed from Medicare annual wellness visit, subsequent) Start:12-Jun-2016 Instruction Type:Provider Instructions for Treatment How to access health informa tion online Indication:Acute ankle pain, left Start:14-Aug-2015 Instruction Type:Patient Education How to access health informa tion online - Detail Indication:Acute ankle pain, left Start:14-Aug-2015 Instruction Type:Patient Education Patient Instructions Indication:Acute ankle pain, left Start:14-Aug-2015 Instruction Type:Provider Instructions for Treatment How to access health informa tion online - Detail Indication:Heartburn Start:07-Jun-2015 Instruction Type:Patient Education How to access health informa tion online Indication:Heartburn Start:07-Jun-2015 Instruction Type:Patient Education Patient Instructions Indication:Heartburn Start:07-Jun-2015 Instruction Type:Provider Instructions for Treatment How to access health informa tion online - Detail Indication:Lumbago with sciatica Start:29-Mar-2015 Instruction Type:Patient Education Patient Instructions Indication:Lumbago with sciatica Start:29-Mar-2015 Instruction Type:Provider Instructions for Treatment Patient Instructions Indication:Myalgia Start:25-Jan-2015 Instruction Type:Provider Instructions for Treatment Patient Instructions Indication:Myalgia Start:10-Jan-2015 Instruction Type:Provider Instructions for Treatment Patient Instructions Indication:Dysuria Start:06-Jun-2014 Instruction Type:Provider Instructions for Treatment Patient Instructions Indication:Rash, drug Start:05-Jan-2014 Instruction Type:Provider Instructions for Treatment [facility]; [facility] Work Phone: Instructions* Name Dates Details Patient Instructions Indication:Annual Medicare Physical (Renamed from Medicare annual wellness visit, subsequent) Start:17-Jun-2021 Instruction Type:Provider Instructions for Treatment How to Access Health Informa tion Online using Patient Portal and [employer] Apps Indication:Annual Medicare Physical (Renamed from Medicare annual wellness visit, subsequent) Start:17-Jun-2021 Instruction Type:Patient Education Patient Instructions Indication:Right hip pain Start:09-May-2021 Instruction Type:Provider Instructions for Treatment How to Access Health Informa tion Online using Patient Portal and [employer] Apps Indication:Right hip pain Start:09-May-2021 Instruction Type:Patient Education Patient Instructions Indication:Bilateral hip bursitis Start:02-Apr-2021 Instruction Type:Provider Instructions for Treatment How to Access Health Informa tion Online using Patient Portal and [employer] Apps Indication:Bilateral hip bursitis Start:02-Apr-2021 Instruction Type:Patient Education Patient Instructions Indication:Right hip pain Start:14-Feb-2021 Instruction Type:Provider Instructions for Treatment How to Access Health Informa tion Online using Patient Portal and [employer] Apps Indication:Right hip pain Start:14-Feb-2021 Instruction Type:Patient Education patient instruction Indication:BMI 23.0-23.9, adult Start:17-Jan-2021 Instruction Type:Provider Instructions for Treatment How to Access Health Informa tion Online using Patient Portal and [employer] Apps Indication:BMI 23.0-23.9, adult Start:17-Jan-2021 Instruction Type:Patient Education How to access health informa tion online Indication:Current nonsmoker (Renamed from Current non-smoker) Start:28-Jun-2020 Instruction Type:Patient Education How to access health informa tion online - Detail Indication:Current nonsmoker (Renamed from Current non-smoker) Start:28-Jun-2020 Instruction Type:Patient Education Patient Instructions Indication:Current nonsmoker (Renamed from Current non-smoker) Start:28-Jun-2020 Instruction Type:Provider Instructions for Treatment How to access health informa tion online Indication:Abnormal fasting glucose Start:30-Jan-2020 Instruction Type:Patient Education How to access health informa tion online - Detail Indication:Abnormal fasting glucose Start:30-Jan-2020 Instruction Type:Patient Education Patient Instructions Indication:Abnormal fasting glucose Start:30-Jan-2020 Instruction Type:Provider Instructions for Treatment How to access health informa tion online Indication:Annual Medicare Physical (Renamed from Medicare annual wellness visit, subsequent) Start:31-Jul-2019 Instruction Type:Patient Education How to access health informa tion online - Detail Indication:Annual Medicare Physical (Renamed from Medicare annual wellness visit, subsequent) Start:31-Jul-2019 Instruction Type:Patient Education Patient Instructions Indication:Annual Medicare Physical (Renamed from Medicare annual wellness visit, subsequent) Start:31-Jul-2019 Instruction Type:Provider Instructions for Treatment How to access health informa tion online Indication:Annual Medicare Physical (Renamed from Medicare annual wellness visit, subsequent) Start:02-Feb-2019 Instruction Type:Patient Education How to access health informa tion online - Detail Indication:Annual Medicare Physical (Renamed from Medicare annual wellness visit, subsequent) Start:02-Feb-2019 Instruction Type:Patient Education Patient Instructions Indication:Annual Medicare Physical (Renamed from Medicare annual wellness visit, subsequent) Start:02-Feb-2019 Instruction Type:Provider Instructions for Treatment How to access health informa tion online Indication:Current nonsmoker (Renamed from Current non-smoker) Start:01-Aug-2018 Instruction Type:Patient Education How to access health informa tion online - Detail Indication:Current nonsmoker (Renamed from Current non-smoker) Start:01-Aug-2018 Instruction Type:Patient Education Patient Instructions Indication:Current nonsmoker (Renamed from Current non-smoker) Start:01-Aug-2018 Instruction Type:Provider Instructions for Treatment How to access health informa tion online Indication:Osteoarthritis Start:04-Mar-2018 Instruction Type:Patient Education How to access health informa tion online - Detail Indication:Osteoarthritis Start:04-Mar-2018 Instruction Type:Patient Education Patient Instructions Indication:Osteoarthritis Start:04-Mar-2018 Instruction Type:Provider Instructions for Treatment How to access health informa tion online Indication:Anterior knee pain, left Start:18-Jan-2018 Instruction Type:Patient Education How to access health informa tion online - Detail Indication:Anterior knee pain, left Start:18-Jan-2018 Instruction Type:Patient Education Patient Instructions Indication:Anterior knee pain, left Start:18-Jan-2018 Instruction Type:Provider Instructions for Treatment How to access health informa tion online Indication:BMI 25.0-25.9,adult Start:13-Dec-2017 Instruction Type:Patient Education How to access health informa tion online - Detail Indication:BMI 25.0-25.9,adult Start:13-Dec-2017 Instruction Type:Patient Education Patient Instructions Indication:BMI 25.0-25.9,adult Start:13-Dec-2017 Instruction Type:Provider Instructions for Treatment How to access health informa tion online Indication:Anterior knee pain, left Start:02-Aug-2017 Instruction Type:Patient Education How to access health informa tion online - Detail Indication:Anterior knee pain, left Start:02-Aug-2017 Instruction Type:Patient Education Patient Instructions Indication:Anterior knee pain, left Start:02-Aug-2017 Instruction Type:Provider Instructions for Treatment How to access health informa tion online Indication:Dermatitis of eyelids of both eyes Start:18-Mar-2017 Instruction Type:Patient Education How to access health informa tion online - Detail Indication:Dermatitis of eyelids of both eyes Start:18-Mar-2017 Instruction Type:Patient Education Patient Instructions Indication:Dermatitis of eyelids of both eyes Start:18-Mar-2017 Instruction Type:Provider Instructions for Treatment How to access health informa tion online Indication:Current nonsmoker (Renamed from Current non-smoker) Start:12-Mar-2017 Instruction Type:Patient Education How to access health informa tion online - Detail Indication:Current nonsmoker (Renamed from Current non-smoker) Start:12-Mar-2017 Instruction Type:Patient Education Patient Instructions Indication:Current nonsmoker (Renamed from Current non-smoker) Start:12-Mar-2017 Instruction Type:Provider Instructions for Treatment How to access health informa tion online Indication:Benign neoplasm of skin Start:01-Mar-2017 Instruction Type:Patient Education How to access health informa tion online - Detail Indication:Benign neoplasm of skin Start:01-Mar-2017 Instruction Type:Patient Education Patient Instructions Indication:Benign neoplasm of skin Start:01-Mar-2017 Instruction Type:Provider Instructions for Treatment How to access health informa tion online Indication:BMI 25.0-25.9,adult Start:26-Jan-2017 Instruction Type:Patient Education How to access health informa tion online - Detail Indication:BMI 25.0-25.9,adult Start:26-Jan-2017 Instruction Type:Patient Education Patient Instructions Indication:BMI 25.0-25.9,adult Start:26-Jan-2017 Instruction Type:Provider Instructions for Treatment How to access health informa tion online Indication:Current nonsmoker (Renamed from Current non-smoker) Start:27-Aug-2016 Instruction Type:Patient Education How to access health informa tion online - Detail Indication:Current nonsmoker (Renamed from Current non-smoker) Start:27-Aug-2016 Instruction Type:Patient Education Patient Instructions Indication:Current nonsmoker (Renamed from Current non-smoker) Start:27-Aug-2016 Instruction Type:Provider Instructions for Treatment How to access health informa tion online Indication:Annual Medicare Physical (Renamed from Medicare annual wellness visit, subsequent) Start:12-Jun-2016 Instruction Type:Patient Education How to access health informa tion online - Detail Indication:Annual Medicare Physical (Renamed from Medicare annual wellness visit, subsequent) Start:12-Jun-2016 Instruction Type:Patient Education Patient Instructions Indication:Annual Medicare Physical (Renamed from Medicare annual wellness visit, subsequent) Start:12-Jun-2016 Instruction Type:Provider Instructions for Treatment How to access health informa tion online Indication:Acute ankle pain, left Start:14-Aug-2015 Instruction Type:Patient Education How to access health informa tion online - Detail Indication:Acute ankle pain, left Start:14-Aug-2015 Instruction Type:Patient Education Patient Instructions Indication:Acute ankle pain, left Start:14-Aug-2015 Instruction Type:Provider Instructions for Treatment How to access health informa tion online - Detail Indication:Heartburn Start:07-Jun-2015 Instruction Type:Patient Education How to access health informa tion online Indication:Heartburn Start:07-Jun-2015 Instruction Type:Patient Education Patient Instructions Indication:Heartburn Start:07-Jun-2015 Instruction Type:Provider Instructions for Treatment How to access health informa tion online - Detail Indication:Lumbago with sciatica Start:29-Mar-2015 Instruction Type:Patient Education Patient Instructions Indication:Lumbago with sciatica Start:29-Mar-2015 Instruction Type:Provider Instructions for Treatment Patient Instructions Indication:Myalgia Start:25-Jan-2015 Instruction Type:Provider Instructions for Treatment Patient Instructions Indication:Myalgia Start:10-Jan-2015 Instruction Type:Provider Instructions for Treatment Patient Instructions Indication:Dysuria Start:06-Jun-2014 Instruction Type:Provider Instructions for Treatment Patient Instructions Indication:Rash, drug Start:05-Jan-2014 Instruction Type:Provider Instructions for Treatment [facility]; [facility] Work Phone: Instructions* Name Dates Details Patient Instructions Indication:Annual Medicare Physical (Renamed from Medicare annual wellness visit, subsequent) Start:17-Jun-2021 Instruction Type:Provider Instructions for Treatment How to Access Health Informa tion Online using Patient Portal and [employer] Apps Indication:Annual Medicare Physical (Renamed from Medicare annual wellness visit, subsequent) Start:17-Jun-2021 Instruction Type:Patient Education Patient Instructions Indication:Right hip pain Start:09-May-2021 Instruction Type:Provider Instructions for Treatment How to Access Health Informa tion Online using Patient Portal and [employer] Apps Indication:Right hip pain Start:09-May-2021 Instruction Type:Patient Education Patient Instructions Indication:Bilateral hip bursitis Start:02-Apr-2021 Instruction Type:Provider Instructions for Treatment How to Access Health Informa tion Online using Patient Portal and [employer] Apps Indication:Bilateral hip bursitis Start:02-Apr-2021 Instruction Type:Patient Education Patient Instructions Indication:Right hip pain Start:14-Feb-2021 Instruction Type:Provider Instructions for Treatment How to Access Health Informa tion Online using Patient Portal and [employer] Apps Indication:Right hip pain Start:14-Feb-2021 Instruction Type:Patient Education patient instruction Indication:BMI 23.0-23.9, adult Start:17-Jan-2021 Instruction Type:Provider Instructions for Treatment How to Access Health Informa tion Online using Patient Portal and [employer] Apps Indication:BMI 23.0-23.9, adult Start:17-Jan-2021 Instruction Type:Patient Education How to access health informa tion online Indication:Current nonsmoker (Renamed from Current non-smoker) Start:28-Jun-2020 Instruction Type:Patient Education How to access health informa tion online - Detail Indication:Current nonsmoker (Renamed from Current non-smoker) Start:28-Jun-2020 Instruction Type:Patient Education Patient Instructions Indication:Current nonsmoker (Renamed from Current non-smoker) Start:28-Jun-2020 Instruction Type:Provider Instructions for Treatment How to access health informa tion online Indication:Abnormal fasting glucose Start:30-Jan-2020 Instruction Type:Patient Education How to access health informa tion online - Detail Indication:Abnormal fasting glucose Start:30-Jan-2020 Instruction Type:Patient Education Patient Instructions Indication:Abnormal fasting glucose Start:30-Jan-2020 Instruction Type:Provider Instructions for Treatment How to access health informa tion online Indication:Annual Medicare Physical (Renamed from Medicare annual wellness visit, subsequent) Start:31-Jul-2019 Instruction Type:Patient Education How to access health informa tion online - Detail Indication:Annual Medicare Physical (Renamed from Medicare annual wellness visit, subsequent) Start:31-Jul-2019 Instruction Type:Patient Education Patient Instructions Indication:Annual Medicare Physical (Renamed from Medicare annual wellness visit, subsequent) Start:31-Jul-2019 Instruction Type:Provider Instructions for Treatment How to access health informa tion online Indication:Annual Medicare Physical (Renamed from Medicare annual wellness visit, subsequent) Start:02-Feb-2019 Instruction Type:Patient Education How to access health informa tion online - Detail Indication:Annual Medicare Physical (Renamed from Medicare annual wellness visit, subsequent) Start:02-Feb-2019 Instruction Type:Patient Education Patient Instructions Indication:Annual Medicare Physical (Renamed from Medicare annual wellness visit, subsequent) Start:02-Feb-2019 Instruction Type:Provider Instructions for Treatment How to access health informa tion online Indication:Current nonsmoker (Renamed from Current non-smoker) Start:01-Aug-2018 Instruction Type:Patient Education How to access health informa tion online - Detail Indication:Current nonsmoker (Renamed from Current non-smoker) Start:01-Aug-2018 Instruction Type:Patient Education Patient Instructions Indication:Current nonsmoker (Renamed from Current non-smoker) Start:01-Aug-2018 Instruction Type:Provider Instructions for Treatment How to access health informa tion online Indication:Osteoarthritis Start:04-Mar-2018 Instruction Type:Patient Education How to access health informa tion online - Detail Indication:Osteoarthritis Start:04-Mar-2018 Instruction Type:Patient Education Patient Instructions Indication:Osteoarthritis Start:04-Mar-2018 Instruction Type:Provider Instructions for Treatment How to access health informa tion online Indication:Anterior knee pain, left Start:18-Jan-2018 Instruction Type:Patient Education How to access health informa tion online - Detail Indication:Anterior knee pain, left Start:18-Jan-2018 Instruction Type:Patient Education Patient Instructions Indication:Anterior knee pain, left Start:18-Jan-2018 Instruction Type:Provider Instructions for Treatment How to access health informa tion online Indication:BMI 25.0-25.9,adult Start:13-Dec-2017 Instruction Type:Patient Education How to access health informa tion online - Detail Indication:BMI 25.0-25.9,adult Start:13-Dec-2017 Instruction Type:Patient Education Patient Instructions Indication:BMI 25.0-25.9,adult Start:13-Dec-2017 Instruction Type:Provider Instructions for Treatment How to access health informa tion online Indication:Anterior knee pain, left Start:02-Aug-2017 Instruction Type:Patient Education How to access health informa tion online - Detail Indication:Anterior knee pain, left Start:02-Aug-2017 Instruction Type:Patient Education Patient Instructions Indication:Anterior knee pain, left Start:02-Aug-2017 Instruction Type:Provider Instructions for Treatment How to access health informa tion online Indication:Dermatitis of eyelids of both eyes Start:18-Mar-2017 Instruction Type:Patient Education How to access health informa tion online - Detail Indication:Dermatitis of eyelids of both eyes Start:18-Mar-2017 Instruction Type:Patient Education Patient Instructions Indication:Dermatitis of eyelids of both eyes Start:18-Mar-2017 Instruction Type:Provider Instructions for Treatment How to access health informa tion online Indication:Current nonsmoker (Renamed from Current non-smoker) Start:12-Mar-2017 Instruction Type:Patient Education How to access health informa tion online - Detail Indication:Current nonsmoker (Renamed from Current non-smoker) Start:12-Mar-2017 Instruction Type:Patient Education Patient Instructions Indication:Current nonsmoker (Renamed from Current non-smoker) Start:12-Mar-2017 Instruction Type:Provider Instructions for Treatment How to access health informa tion online Indication:Benign neoplasm of skin Start:01-Mar-2017 Instruction Type:Patient Education How to access health informa tion online - Detail Indication:Benign neoplasm of skin Start:01-Mar-2017 Instruction Type:Patient Education Patient Instructions Indication:Benign neoplasm of skin Start:01-Mar-2017 Instruction Type:Provider Instructions for Treatment How to access health informa tion online Indication:BMI 25.0-25.9,adult Start:26-Jan-2017 Instruction Type:Patient Education How to access health informa tion online - Detail Indication:BMI 25.0-25.9,adult Start:26-Jan-2017 Instruction Type:Patient Education Patient Instructions Indication:BMI 25.0-25.9,adult Start:26-Jan-2017 Instruction Type:Provider Instructions for Treatment How to access health informa tion online Indication:Current nonsmoker (Renamed from Current non-smoker) Start:27-Aug-2016 Instruction Type:Patient Education How to access health informa tion online - Detail Indication:Current nonsmoker (Renamed from Current non-smoker) Start:27-Aug-2016 Instruction Type:Patient Education Patient Instructions Indication:Current nonsmoker (Renamed from Current non-smoker) Start:27-Aug-2016 Instruction Type:Provider Instructions for Treatment How to access health informa tion online Indication:Annual Medicare Physical (Renamed from Medicare annual wellness visit, subsequent) Start:12-Jun-2016 Instruction Type:Patient Education How to access health informa tion online - Detail Indication:Annual Medicare Physical (Renamed from Medicare annual wellness visit, subsequent) Start:12-Jun-2016 Instruction Type:Patient Education Patient Instructions Indication:Annual Medicare Physical (Renamed from Medicare annual wellness visit, subsequent) Start:12-Jun-2016 Instruction Type:Provider Instructions for Treatment How to access health informa tion online Indication:Acute ankle pain, left Start:14-Aug-2015 Instruction Type:Patient Education How to access health informa tion online - Detail Indication:Acute ankle pain, left Start:14-Aug-2015 Instruction Type:Patient Education Patient Instructions Indication:Acute ankle pain, left Start:14-Aug-2015 Instruction Type:Provider Instructions for Treatment How to access health informa tion online - Detail Indication:Heartburn Start:07-Jun-2015 Instruction Type:Patient Education How to access health informa tion online Indication:Heartburn Start:07-Jun-2015 Instruction Type:Patient Education Patient Instructions Indication:Heartburn Start:07-Jun-2015 Instruction Type:Provider Instructions for Treatment How to access health informa tion online - Detail Indication:Lumbago with sciatica Start:29-Mar-2015 Instruction Type:Patient Education Patient Instructions Indication:Lumbago with sciatica Start:29-Mar-2015 Instruction Type:Provider Instructions for Treatment Patient Instructions Indication:Myalgia Start:25-Jan-2015 Instruction Type:Provider Instructions for Treatment Patient Instructions Indication:Myalgia Start:10-Jan-2015 Instruction Type:Provider Instructions for Treatment Patient Instructions Indication:Dysuria Start:06-Jun-2014 Instruction Type:Provider Instructions for Treatment Patient Instructions Indication:Rash, drug Start:05-Jan-2014 Instruction Type:Provider Instructions for Treatment [facility]; [facility] Work Phone: Instructions* Name Dates Details Patient Instructions Indication:Current nonsmoker (Renamed from Current non-smoker) Start:25-Dec-2021 Instruction Type:Provider Instructions for Treatment How to Access Health Informa tion Online using Patient Portal and [employer] Apps Indication:Current nonsmoker (Renamed from Current non-smoker) Start:25-Dec-2021 Instruction Type:Patient Education Patient Instructions Indication:Annual Medicare Physical (Renamed from Medicare annual wellness visit, subsequent) Start:17-Jun-2021 Instruction Type:Provider Instructions for Treatment How to Access Health Informa tion Online using Patient Portal and [employer] Apps Indication:Annual Medicare Physical (Renamed from Medicare annual wellness visit, subsequent) Start:17-Jun-2021 Instruction Type:Patient Education Patient Instructions Indication:Right hip pain Start:09-May-2021 Instruction Type:Provider Instructions for Treatment How to Access Health Informa tion Online using Patient Portal and [employer] Apps Indication:Right hip pain Start:09-May-2021 Instruction Type:Patient Education Patient Instructions Indication:Bilateral hip bursitis Start:02-Apr-2021 Instruction Type:Provider Instructions for Treatment How to Access Health Informa tion Online using Patient Portal and [employer] Apps Indication:Bilateral hip bursitis Start:02-Apr-2021 Instruction Type:Patient Education Patient Instructions Indication:Right hip pain Start:14-Feb-2021 Instruction Type:Provider Instructions for Treatment How to Access Health Informa tion Online using Patient Portal and [employer] Apps Indication:Right hip pain Start:14-Feb-2021 Instruction Type:Patient Education patient instruction Indication:BMI 23.0-23.9, adult Start:17-Jan-2021 Instruction Type:Provider Instructions for Treatment How to Access Health Informa tion Online using Patient Portal and [employer] Apps Indication:BMI 23.0-23.9, adult Start:17-Jan-2021 Instruction Type:Patient Education How to access health informa tion online Indication:Current nonsmoker (Renamed from Current non-smoker) Start:28-Jun-2020 Instruction Type:Patient Education How to access health informa tion online - Detail Indication:Current nonsmoker (Renamed from Current non-smoker) Start:28-Jun-2020 Instruction Type:Patient Education Patient Instructions Indication:Current nonsmoker (Renamed from Current non-smoker) Start:28-Jun-2020 Instruction Type:Provider Instructions for Treatment How to access health informa tion online Indication:Abnormal fasting glucose Start:30-Jan-2020 Instruction Type:Patient Education How to access health informa tion online - Detail Indication:Abnormal fasting glucose Start:30-Jan-2020 Instruction Type:Patient Education Patient Instructions Indication:Abnormal fasting glucose Start:30-Jan-2020 Instruction Type:Provider Instructions for Treatment How to access health informa tion online Indication:Annual Medicare Physical (Renamed from Medicare annual wellness visit, subsequent) Start:31-Jul-2019 Instruction Type:Patient Education How to access health informa tion online - Detail Indication:Annual Medicare Physical (Renamed from Medicare annual wellness visit, subsequent) Start:31-Jul-2019 Instruction Type:Patient Education Patient Instructions Indication:Annual Medicare Physical (Renamed from Medicare annual wellness visit, subsequent) Start:31-Jul-2019 Instruction Type:Provider Instructions for Treatment How to access health informa tion online Indication:Annual Medicare Physical (Renamed from Medicare annual wellness visit, subsequent) Start:02-Feb-2019 Instruction Type:Patient Education How to access health informa tion online - Detail Indication:Annual Medicare Physical (Renamed from Medicare annual wellness visit, subsequent) Start:02-Feb-2019 Instruction Type:Patient Education Patient Instructions Indication:Annual Medicare Physical (Renamed from Medicare annual wellness visit, subsequent) Start:02-Feb-2019 Instruction Type:Provider Instructions for Treatment How to access health informa tion online Indication:Current nonsmoker (Renamed from Current non-smoker) Start:01-Aug-2018 Instruction Type:Patient Education How to access health informa tion online - Detail Indication:Current nonsmoker (Renamed from Current non-smoker) Start:01-Aug-2018 Instruction Type:Patient Education Patient Instructions Indication:Current nonsmoker (Renamed from Current non-smoker) Start:01-Aug-2018 Instruction Type:Provider Instructions for Treatment How to access health informa tion online Indication:Osteoarthritis Start:04-Mar-2018 Instruction Type:Patient Education How to access health informa tion online - Detail Indication:Osteoarthritis Start:04-Mar-2018 Instruction Type:Patient Education Patient Instructions Indication:Osteoarthritis Start:04-Mar-2018 Instruction Type:Provider Instructions for Treatment How to access health informa tion online Indication:Anterior knee pain, left Start:18-Jan-2018 Instruction Type:Patient Education How to access health informa tion online - Detail Indication:Anterior knee pain, left Start:18-Jan-2018 Instruction Type:Patient Education Patient Instructions Indication:Anterior knee pain, left Start:18-Jan-2018 Instruction Type:Provider Instructions for Treatment How to access health informa tion online Indication:BMI 25.0-25.9,adult Start:13-Dec-2017 Instruction Type:Patient Education How to access health informa tion online - Detail Indication:BMI 25.0-25.9,adult Start:13-Dec-2017 Instruction Type:Patient Education Patient Instructions Indication:BMI 25.0-25.9,adult Start:13-Dec-2017 Instruction Type:Provider Instructions for Treatment How to access health informa tion online Indication:Anterior knee pain, left Start:02-Aug-2017 Instruction Type:Patient Education How to access health informa tion online - Detail Indication:Anterior knee pain, left Start:02-Aug-2017 Instruction Type:Patient Education Patient Instructions Indication:Anterior knee pain, left Start:02-Aug-2017 Instruction Type:Provider Instructions for Treatment How to access health informa tion online Indication:Dermatitis of eyelids of both eyes Start:18-Mar-2017 Instruction Type:Patient Education How to access health informa tion online - Detail Indication:Dermatitis of eyelids of both eyes Start:18-Mar-2017 Instruction Type:Patient Education Patient Instructions Indication:Dermatitis of eyelids of both eyes Start:18-Mar-2017 Instruction Type:Provider Instructions for Treatment How to access health informa tion online Indication:Current nonsmoker (Renamed from Current non-smoker) Start:12-Mar-2017 Instruction Type:Patient Education How to access health informa tion online - Detail Indication:Current nonsmoker (Renamed from Current non-smoker) Start:12-Mar-2017 Instruction Type:Patient Education Patient Instructions Indication:Current nonsmoker (Renamed from Current non-smoker) Start:12-Mar-2017 Instruction Type:Provider Instructions for Treatment How to access health informa tion online Indication:Benign neoplasm of skin Start:01-Mar-2017 Instruction Type:Patient Education How to access health informa tion online - Detail Indication:Benign neoplasm of skin Start:01-Mar-2017 Instruction Type:Patient Education Patient Instructions Indication:Benign neoplasm of skin Start:01-Mar-2017 Instruction Type:Provider Instructions for Treatment How to access health informa tion online Indication:BMI 25.0-25.9,adult Start:26-Jan-2017 Instruction Type:Patient Education How to access health informa tion online - Detail Indication:BMI 25.0-25.9,adult Start:26-Jan-2017 Instruction Type:Patient Education Patient Instructions Indication:BMI 25.0-25.9,adult Start:26-Jan-2017 Instruction Type:Provider Instructions for Treatment How to access health informa tion online Indication:Current nonsmoker (Renamed from Current non-smoker) Start:27-Aug-2016 Instruction Type:Patient Education How to access health informa tion online - Detail Indication:Current nonsmoker (Renamed from Current non-smoker) Start:27-Aug-2016 Instruction Type:Patient Education Patient Instructions Indication:Current nonsmoker (Renamed from Current non-smoker) Start:27-Aug-2016 Instruction Type:Provider Instructions for Treatment How to access health informa tion online Indication:Annual Medicare Physical (Renamed from Medicare annual wellness visit, subsequent) Start:12-Jun-2016 Instruction Type:Patient Education How to access health informa tion online - Detail Indication:Annual Medicare Physical (Renamed from Medicare annual wellness visit, subsequent) Start:12-Jun-2016 Instruction Type:Patient Education Patient Instructions Indication:Annual Medicare Physical (Renamed from Medicare annual wellness visit, subsequent) Start:12-Jun-2016 Instruction Type:Provider Instructions for Treatment How to access health informa tion online Indication:Acute ankle pain, left Start:14-Aug-2015 Instruction Type:Patient Education How to access health informa tion online - Detail Indication:Acute ankle pain, left Start:14-Aug-2015 Instruction Type:Patient Education Patient Instructions Indication:Acute ankle pain, left Start:14-Aug-2015 Instruction Type:Provider Instructions for Treatment How to access health informa tion online - Detail Indication:Heartburn Start:07-Jun-2015 Instruction Type:Patient Education How to access health informa tion online Indication:Heartburn Start:07-Jun-2015 Instruction Type:Patient Education Patient Instructions Indication:Heartburn Start:07-Jun-2015 Instruction Type:Provider Instructions for Treatment How to access health informa tion online - Detail Indication:Lumbago with sciatica Start:29-Mar-2015 Instruction Type:Patient Education Patient Instructions Indication:Lumbago with sciatica Start:29-Mar-2015 Instruction Type:Provider Instructions for Treatment Patient Instructions Indication:Myalgia Start:25-Jan-2015 Instruction Type:Provider Instructions for Treatment Patient Instructions Indication:Myalgia Start:10-Jan-2015 Instruction Type:Provider Instructions for Treatment Patient Instructions Indication:Dysuria Start:06-Jun-2014 Instruction Type:Provider Instructions for Treatment Patient Instructions Indication:Rash, drug Start:05-Jan-2014 Instruction Type:Provider Instructions for Treatment [facility]; [facility] Work Phone: Instructions* Name Dates Details Patient Instructions Indication:Current nonsmoker (Renamed from Current non-smoker) Start:25-Dec-2021 Instruction Type:Provider Instructions for Treatment How to Access Health Informa tion Online using Patient Portal and [employer] Apps Indication:Current nonsmoker (Renamed from Current non-smoker) Start:25-Dec-2021 Instruction Type:Patient Education Patient Instructions Indication:Annual Medicare Physical (Renamed from Medicare annual wellness visit, subsequent) Start:17-Jun-2021 Instruction Type:Provider Instructions for Treatment How to Access Health Informa tion Online using Patient Portal and [employer] Apps Indication:Annual Medicare Physical (Renamed from Medicare annual wellness visit, subsequent) Start:17-Jun-2021 Instruction Type:Patient Education Patient Instructions Indication:Right hip pain Start:09-May-2021 Instruction Type:Provider Instructions for Treatment How to Access Health Informa tion Online using Patient Portal and [employer] Apps Indication:Right hip pain Start:09-May-2021 Instruction Type:Patient Education Patient Instructions Indication:Bilateral hip bursitis Start:02-Apr-2021 Instruction Type:Provider Instructions for Treatment How to Access Health Informa tion Online using Patient Portal and [employer] Apps Indication:Bilateral hip bursitis Start:02-Apr-2021 Instruction Type:Patient Education Patient Instructions Indication:Right hip pain Start:14-Feb-2021 Instruction Type:Provider Instructions for Treatment How to Access Health Informa tion Online using Patient Portal and [employer] Apps Indication:Right hip pain Start:14-Feb-2021 Instruction Type:Patient Education patient instruction Indication:BMI 23.0-23.9, adult Start:17-Jan-2021 Instruction Type:Provider Instructions for Treatment How to Access Health Informa tion Online using Patient Portal and [employer] Apps Indication:BMI 23.0-23.9, adult Start:17-Jan-2021 Instruction Type:Patient Education How to access health informa tion online Indication:Current nonsmoker (Renamed from Current non-smoker) Start:28-Jun-2020 Instruction Type:Patient Education How to access health informa tion online - Detail Indication:Current nonsmoker (Renamed from Current non-smoker) Start:28-Jun-2020 Instruction Type:Patient Education Patient Instructions Indication:Current nonsmoker (Renamed from Current non-smoker) Start:28-Jun-2020 Instruction Type:Provider Instructions for Treatment How to access health informa tion online Indication:Abnormal fasting glucose Start:30-Jan-2020 Instruction Type:Patient Education How to access health informa tion online - Detail Indication:Abnormal fasting glucose Start:30-Jan-2020 Instruction Type:Patient Education Patient Instructions Indication:Abnormal fasting glucose Start:30-Jan-2020 Instruction Type:Provider Instructions for Treatment How to access health informa tion online Indication:Annual Medicare Physical (Renamed from Medicare annual wellness visit, subsequent) Start:31-Jul-2019 Instruction Type:Patient Education How to access health informa tion online - Detail Indication:Annual Medicare Physical (Renamed from Medicare annual wellness visit, subsequent) Start:31-Jul-2019 Instruction Type:Patient Education Patient Instructions Indication:Annual Medicare Physical (Renamed from Medicare annual wellness visit, subsequent) Start:31-Jul-2019 Instruction Type:Provider Instructions for Treatment How to access health informa tion online Indication:Annual Medicare Physical (Renamed from Medicare annual wellness visit, subsequent) Start:02-Feb-2019 Instruction Type:Patient Education How to access health informa tion online - Detail Indication:Annual Medicare Physical (Renamed from Medicare annual wellness visit, subsequent) Start:02-Feb-2019 Instruction Type:Patient Education Patient Instructions Indication:Annual Medicare Physical (Renamed from Medicare annual wellness visit, subsequent) Start:02-Feb-2019 Instruction Type:Provider Instructions for Treatment How to access health informa tion online Indication:Current nonsmoker (Renamed from Current non-smoker) Start:01-Aug-2018 Instruction Type:Patient Education How to access health informa tion online - Detail Indication:Current nonsmoker (Renamed from Current non-smoker) Start:01-Aug-2018 Instruction Type:Patient Education Patient Instructions Indication:Current nonsmoker (Renamed from Current non-smoker) Start:01-Aug-2018 Instruction Type:Provider Instructions for Treatment How to access health informa tion online Indication:Osteoarthritis Start:04-Mar-2018 Instruction Type:Patient Education How to access health informa tion online - Detail Indication:Osteoarthritis Start:04-Mar-2018 Instruction Type:Patient Education Patient Instructions Indication:Osteoarthritis Start:04-Mar-2018 Instruction Type:Provider Instructions for Treatment How to access health informa tion online Indication:Anterior knee pain, left Start:18-Jan-2018 Instruction Type:Patient Education How to access health informa tion online - Detail Indication:Anterior knee pain, left Start:18-Jan-2018 Instruction Type:Patient Education Patient Instructions Indication:Anterior knee pain, left Start:18-Jan-2018 Instruction Type:Provider Instructions for Treatment How to access health informa tion online Indication:BMI 25.0-25.9,adult Start:13-Dec-2017 Instruction Type:Patient Education How to access health informa tion online - Detail Indication:BMI 25.0-25.9,adult Start:13-Dec-2017 Instruction Type:Patient Education Patient Instructions Indication:BMI 25.0-25.9,adult Start:13-Dec-2017 Instruction Type:Provider Instructions for Treatment How to access health informa tion online Indication:Anterior knee pain, left Start:02-Aug-2017 Instruction Type:Patient Education How to access health informa tion online - Detail Indication:Anterior knee pain, left Start:02-Aug-2017 Instruction Type:Patient Education Patient Instructions Indication:Anterior knee pain, left Start:02-Aug-2017 Instruction Type:Provider Instructions for Treatment How to access health informa tion online Indication:Dermatitis of eyelids of both eyes Start:18-Mar-2017 Instruction Type:Patient Education How to access health informa tion online - Detail Indication:Dermatitis of eyelids of both eyes Start:18-Mar-2017 Instruction Type:Patient Education Patient Instructions Indication:Dermatitis of eyelids of both eyes Start:18-Mar-2017 Instruction Type:Provider Instructions for Treatment How to access health informa tion online Indication:Current nonsmoker (Renamed from Current non-smoker) Start:12-Mar-2017 Instruction Type:Patient Education How to access health informa tion online - Detail Indication:Current nonsmoker (Renamed from Current non-smoker) Start:12-Mar-2017 Instruction Type:Patient Education Patient Instructions Indication:Current nonsmoker (Renamed from Current non-smoker) Start:12-Mar-2017 Instruction Type:Provider Instructions for Treatment How to access health informa tion online Indication:Benign neoplasm of skin Start:01-Mar-2017 Instruction Type:Patient Education How to access health informa tion online - Detail Indication:Benign neoplasm of skin Start:01-Mar-2017 Instruction Type:Patient Education Patient Instructions Indication:Benign neoplasm of skin Start:01-Mar-2017 Instruction Type:Provider Instructions for Treatment How to access health informa tion online Indication:BMI 25.0-25.9,adult Start:26-Jan-2017 Instruction Type:Patient Education How to access health informa tion online - Detail Indication:BMI 25.0-25.9,adult Start:26-Jan-2017 Instruction Type:Patient Education Patient Instructions Indication:BMI 25.0-25.9,adult Start:26-Jan-2017 Instruction Type:Provider Instructions for Treatment How to access health informa tion online Indication:Current nonsmoker (Renamed from Current non-smoker) Start:27-Aug-2016 Instruction Type:Patient Education How to access health informa tion online - Detail Indication:Current nonsmoker (Renamed from Current non-smoker) Start:27-Aug-2016 Instruction Type:Patient Education Patient Instructions Indication:Current nonsmoker (Renamed from Current non-smoker) Start:27-Aug-2016 Instruction Type:Provider Instructions for Treatment How to access health informa tion online Indication:Annual Medicare Physical (Renamed from Medicare annual wellness visit, subsequent) Start:12-Jun-2016 Instruction Type:Patient Education How to access health informa tion online - Detail Indication:Annual Medicare Physical (Renamed from Medicare annual wellness visit, subsequent) Start:12-Jun-2016 Instruction Type:Patient Education Patient Instructions Indication:Annual Medicare Physical (Renamed from Medicare annual wellness visit, subsequent) Start:12-Jun-2016 Instruction Type:Provider Instructions for Treatment How to access health informa tion online Indication:Acute ankle pain, left Start:14-Aug-2015 Instruction Type:Patient Education How to access health informa tion online - Detail Indication:Acute ankle pain, left Start:14-Aug-2015 Instruction Type:Patient Education Patient Instructions Indication:Acute ankle pain, left Start:14-Aug-2015 Instruction Type:Provider Instructions for Treatment How to access health informa tion online - Detail Indication:Heartburn Start:07-Jun-2015 Instruction Type:Patient Education How to access health informa tion online Indication:Heartburn Start:07-Jun-2015 Instruction Type:Patient Education Patient Instructions Indication:Heartburn Start:07-Jun-2015 Instruction Type:Provider Instructions for Treatment How to access health informa tion online - Detail Indication:Lumbago with sciatica Start:29-Mar-2015 Instruction Type:Patient Education Patient Instructions Indication:Lumbago with sciatica Start:29-Mar-2015 Instruction Type:Provider Instructions for Treatment Patient Instructions Indication:Myalgia Start:25-Jan-2015 Instruction Type:Provider Instructions for Treatment Patient Instructions Indication:Myalgia Start:10-Jan-2015 Instruction Type:Provider Instructions for Treatment Patient Instructions Indication:Dysuria Start:06-Jun-2014 Instruction Type:Provider Instructions for Treatment Patient Instructions Indication:Rash, drug Start:05-Jan-2014 Instruction Type:Provider Instructions for Treatment [facility]; [facility] Work Phone: Instructions* Name Dates Details Patient Instructions Indication:Coronary artery disease Start:04-May-2022 Instruction Type:Provider Instructions for Treatment How to Access Health Informa tion Online using Patient Portal and [employer] Apps Indication:Coronary artery disease Start:04-May-2022 Instruction Type:Patient Education Patient Instructions Indication:Current nonsmoker (Renamed from Current non-smoker) Start:25-Dec-2021 Instruction Type:Provider Instructions for Treatment How to Access Health Informa tion Online using Patient Portal and [employer] Apps Indication:Current nonsmoker (Renamed from Current non-smoker) Start:25-Dec-2021 Instruction Type:Patient Education Patient Instructions Indication:Annual Medicare Physical (Renamed from Medicare annual wellness visit, subsequent) Start:17-Jun-2021 Instruction Type:Provider Instructions for Treatment How to Access Health Informa tion Online using Patient Portal and [employer] Apps Indication:Annual Medicare Physical (Renamed from Medicare annual wellness visit, subsequent) Start:17-Jun-2021 Instruction Type:Patient Education Patient Instructions Indication:Right hip pain Start:09-May-2021 Instruction Type:Provider Instructions for Treatment How to Access Health Informa tion Online using Patient Portal and [employer] Apps Indication:Right hip pain Start:09-May-2021 Instruction Type:Patient Education Patient Instructions Indication:Bilateral hip bursitis Start:02-Apr-2021 Instruction Type:Provider Instructions for Treatment How to Access Health Informa tion Online using Patient Portal and [employer] Apps Indication:Bilateral hip bursitis Start:02-Apr-2021 Instruction Type:Patient Education Patient Instructions Indication:Right hip pain Start:14-Feb-2021 Instruction Type:Provider Instructions for Treatment How to Access Health Informa tion Online using Patient Portal and [employer] Apps Indication:Right hip pain Start:14-Feb-2021 Instruction Type:Patient Education patient instruction Indication:BMI 23.0-23.9, adult Start:17-Jan-2021 Instruction Type:Provider Instructions for Treatment How to Access Health Informa tion Online using Patient Portal and [employer] Apps Indication:BMI 23.0-23.9, adult Start:17-Jan-2021 Instruction Type:Patient Education How to access health informa tion online Indication:Current nonsmoker (Renamed from Current non-smoker) Start:28-Jun-2020 Instruction Type:Patient Education How to access health informa tion online - Detail Indication:Current nonsmoker (Renamed from Current non-smoker) Start:28-Jun-2020 Instruction Type:Patient Education Patient Instructions Indication:Current nonsmoker (Renamed from Current non-smoker) Start:28-Jun-2020 Instruction Type:Provider Instructions for Treatment How to access health informa tion online Indication:Abnormal fasting glucose Start:30-Jan-2020 Instruction Type:Patient Education How to access health informa tion online - Detail Indication:Abnormal fasting glucose Start:30-Jan-2020 Instruction Type:Patient Education Patient Instructions Indication:Abnormal fasting glucose Start:30-Jan-2020 Instruction Type:Provider Instructions for Treatment How to access health informa tion online Indication:Annual Medicare Physical (Renamed from Medicare annual wellness visit, subsequent) Start:31-Jul-2019 Instruction Type:Patient Education How to access health informa tion online - Detail Indication:Annual Medicare Physical (Renamed from Medicare annual wellness visit, subsequent) Start:31-Jul-2019 Instruction Type:Patient Education Patient Instructions Indication:Annual Medicare Physical (Renamed from Medicare annual wellness visit, subsequent) Start:31-Jul-2019 Instruction Type:Provider Instructions for Treatment How to access health informa tion online Indication:Annual Medicare Physical (Renamed from Medicare annual wellness visit, subsequent) Start:02-Feb-2019 Instruction Type:Patient Education How to access health informa tion online - Detail Indication:Annual Medicare Physical (Renamed from Medicare annual wellness visit, subsequent) Start:02-Feb-2019 Instruction Type:Patient Education Patient Instructions Indication:Annual Medicare Physical (Renamed from Medicare annual wellness visit, subsequent) Start:02-Feb-2019 Instruction Type:Provider Instructions for Treatment How to access health informa tion online Indication:Current nonsmoker (Renamed from Current non-smoker) Start:01-Aug-2018 Instruction Type:Patient Education How to access health informa tion online - Detail Indication:Current nonsmoker (Renamed from Current non-smoker) Start:01-Aug-2018 Instruction Type:Patient Education Patient Instructions Indication:Current nonsmoker (Renamed from Current non-smoker) Start:01-Aug-2018 Instruction Type:Provider Instructions for Treatment How to access health informa tion online Indication:Osteoarthritis Start:04-Mar-2018 Instruction Type:Patient Education How to access health informa tion online - Detail Indication:Osteoarthritis Start:04-Mar-2018 Instruction Type:Patient Education Patient Instructions Indication:Osteoarthritis Start:04-Mar-2018 Instruction Type:Provider Instructions for Treatment How to access health informa tion online Indication:Anterior knee pain, left Start:18-Jan-2018 Instruction Type:Patient Education How to access health informa tion online - Detail Indication:Anterior knee pain, left Start:18-Jan-2018 Instruction Type:Patient Education Patient Instructions Indication:Anterior knee pain, left Start:18-Jan-2018 Instruction Type:Provider Instructions for Treatment How to access health informa tion online Indication:BMI 25.0-25.9,adult Start:13-Dec-2017 Instruction Type:Patient Education How to access health informa tion online - Detail Indication:BMI 25.0-25.9,adult Start:13-Dec-2017 Instruction Type:Patient Education Patient Instructions Indication:BMI 25.0-25.9,adult Start:13-Dec-2017 Instruction Type:Provider Instructions for Treatment How to access health informa tion online Indication:Anterior knee pain, left Start:02-Aug-2017 Instruction Type:Patient Education How to access health informa tion online - Detail Indication:Anterior knee pain, left Start:02-Aug-2017 Instruction Type:Patient Education Patient Instructions Indication:Anterior knee pain, left Start:02-Aug-2017 Instruction Type:Provider Instructions for Treatment How to access health informa tion online Indication:Dermatitis of eyelids of both eyes Start:18-Mar-2017 Instruction Type:Patient Education How to access health informa tion online - Detail Indication:Dermatitis of eyelids of both eyes Start:18-Mar-2017 Instruction Type:Patient Education Patient Instructions Indication:Dermatitis of eyelids of both eyes Start:18-Mar-2017 Instruction Type:Provider Instructions for Treatment How to access health informa tion online Indication:Current nonsmoker (Renamed from Current non-smoker) Start:12-Mar-2017 Instruction Type:Patient Education How to access health informa tion online - Detail Indication:Current nonsmoker (Renamed from Current non-smoker) Start:12-Mar-2017 Instruction Type:Patient Education Patient Instructions Indication:Current nonsmoker (Renamed from Current non-smoker) Start:12-Mar-2017 Instruction Type:Provider Instructions for Treatment How to access health informa tion online Indication:Benign neoplasm of skin Start:01-Mar-2017 Instruction Type:Patient Education How to access health informa tion online - Detail Indication:Benign neoplasm of skin Start:01-Mar-2017 Instruction Type:Patient Education Patient Instructions Indication:Benign neoplasm of skin Start:01-Mar-2017 Instruction Type:Provider Instructions for Treatment How to access health informa tion online Indication:BMI 25.0-25.9,adult Start:26-Jan-2017 Instruction Type:Patient Education How to access health informa tion online - Detail Indication:BMI 25.0-25.9,adult Start:26-Jan-2017 Instruction Type:Patient Education Patient Instructions Indication:BMI 25.0-25.9,adult Start:26-Jan-2017 Instruction Type:Provider Instructions for Treatment How to access health informa tion online Indication:Current nonsmoker (Renamed from Current non-smoker) Start:27-Aug-2016 Instruction Type:Patient Education How to access health informa tion online - Detail Indication:Current nonsmoker (Renamed from Current non-smoker) Start:27-Aug-2016 Instruction Type:Patient Education Patient Instructions Indication:Current nonsmoker (Renamed from Current non-smoker) Start:27-Aug-2016 Instruction Type:Provider Instructions for Treatment How to access health informa tion online Indication:Annual Medicare Physical (Renamed from Medicare annual wellness visit, subsequent) Start:12-Jun-2016 Instruction Type:Patient Education How to access health informa tion online - Detail Indication:Annual Medicare Physical (Renamed from Medicare annual wellness visit, subsequent) Start:12-Jun-2016 Instruction Type:Patient Education Patient Instructions Indication:Annual Medicare Physical (Renamed from Medicare annual wellness visit, subsequent) Start:12-Jun-2016 Instruction Type:Provider Instructions for Treatment How to access health informa tion online Indication:Acute ankle pain, left Start:14-Aug-2015 Instruction Type:Patient Education How to access health informa tion online - Detail Indication:Acute ankle pain, left Start:14-Aug-2015 Instruction Type:Patient Education Patient Instructions Indication:Acute ankle pain, left Start:14-Aug-2015 Instruction Type:Provider Instructions for Treatment How to access health informa tion online - Detail Indication:Heartburn Start:07-Jun-2015 Instruction Type:Patient Education How to access health informa tion online Indication:Heartburn Start:07-Jun-2015 Instruction Type:Patient Education Patient Instructions Indication:Heartburn Start:07-Jun-2015 Instruction Type:Provider Instructions for Treatment How to access health informa tion online - Detail Indication:Lumbago with sciatica Start:29-Mar-2015 Instruction Type:Patient Education Patient Instructions Indication:Lumbago with sciatica Start:29-Mar-2015 Instruction Type:Provider Instructions for Treatment Patient Instructions Indication:Myalgia Start:25-Jan-2015 Instruction Type:Provider Instructions for Treatment Patient Instructions Indication:Myalgia Start:10-Jan-2015 Instruction Type:Provider Instructions for Treatment Patient Instructions Indication:Dysuria Start:06-Jun-2014 Instruction Type:Provider Instructions for Treatment Patient Instructions Indication:Rash, drug Start:05-Jan-2014 Instruction Type:Provider Instructions for Treatment [facility]; [facility] Work Phone: Instructions* Name Dates Details Patient Instructions Indication:Coronary artery disease Start:04-May-2022 Instruction Type:Provider Instructions for Treatment How to Access Health Informa tion Online using Patient Portal and [employer] Apps Indication:Coronary artery disease Start:04-May-2022 Instruction Type:Patient Education Patient Instructions Indication:Current nonsmoker (Renamed from Current non-smoker) Start:25-Dec-2021 Instruction Type:Provider Instructions for Treatment How to Access Health Informa tion Online using Patient Portal and [employer] Apps Indication:Current nonsmoker (Renamed from Current non-smoker) Start:25-Dec-2021 Instruction Type:Patient Education Patient Instructions Indication:Annual Medicare Physical (Renamed from Medicare annual wellness visit, subsequent) Start:17-Jun-2021 Instruction Type:Provider Instructions for Treatment How to Access Health Informa tion Online using Patient Portal and [employer] Apps Indication:Annual Medicare Physical (Renamed from Medicare annual wellness visit, subsequent) Start:17-Jun-2021 Instruction Type:Patient Education Patient Instructions Indication:Right hip pain Start:09-May-2021 Instruction Type:Provider Instructions for Treatment How to Access Health Informa tion Online using Patient Portal and [employer] Apps Indication:Right hip pain Start:09-May-2021 Instruction Type:Patient Education Patient Instructions Indication:Bilateral hip bursitis Start:02-Apr-2021 Instruction Type:Provider Instructions for Treatment How to Access Health Informa tion Online using Patient Portal and [employer] Apps Indication:Bilateral hip bursitis Start:02-Apr-2021 Instruction Type:Patient Education Patient Instructions Indication:Right hip pain Start:14-Feb-2021 Instruction Type:Provider Instructions for Treatment How to Access Health Informa tion Online using Patient Portal and [employer] Apps Indication:Right hip pain Start:14-Feb-2021 Instruction Type:Patient Education patient instruction Indication:BMI 23.0-23.9, adult Start:17-Jan-2021 Instruction Type:Provider Instructions for Treatment How to Access Health Informa tion Online using Patient Portal and [employer] Apps Indication:BMI 23.0-23.9, adult Start:17-Jan-2021 Instruction Type:Patient Education How to access health informa tion online Indication:Current nonsmoker (Renamed from Current non-smoker) Start:28-Jun-2020 Instruction Type:Patient Education How to access health informa tion online - Detail Indication:Current nonsmoker (Renamed from Current non-smoker) Start:28-Jun-2020 Instruction Type:Patient Education Patient Instructions Indication:Current nonsmoker (Renamed from Current non-smoker) Start:28-Jun-2020 Instruction Type:Provider Instructions for Treatment How to access health informa tion online Indication:Abnormal fasting glucose Start:30-Jan-2020 Instruction Type:Patient Education How to access health informa tion online - Detail Indication:Abnormal fasting glucose Start:30-Jan-2020 Instruction Type:Patient Education Patient Instructions Indication:Abnormal fasting glucose Start:30-Jan-2020 Instruction Type:Provider Instructions for Treatment How to access health informa tion online Indication:Annual Medicare Physical (Renamed from Medicare annual wellness visit, subsequent) Start:31-Jul-2019 Instruction Type:Patient Education How to access health informa tion online - Detail Indication:Annual Medicare Physical (Renamed from Medicare annual wellness visit, subsequent) Start:31-Jul-2019 Instruction Type:Patient Education Patient Instructions Indication:Annual Medicare Physical (Renamed from Medicare annual wellness visit, subsequent) Start:31-Jul-2019 Instruction Type:Provider Instructions for Treatment How to access health informa tion online Indication:Annual Medicare Physical (Renamed from Medicare annual wellness visit, subsequent) Start:02-Feb-2019 Instruction Type:Patient Education How to access health informa tion online - Detail Indication:Annual Medicare Physical (Renamed from Medicare annual wellness visit, subsequent) Start:02-Feb-2019 Instruction Type:Patient Education Patient Instructions Indication:Annual Medicare Physical (Renamed from Medicare annual wellness visit, subsequent) Start:02-Feb-2019 Instruction Type:Provider Instructions for Treatment How to access health informa tion online Indication:Current nonsmoker (Renamed from Current non-smoker) Start:01-Aug-2018 Instruction Type:Patient Education How to access health informa tion online - Detail Indication:Current nonsmoker (Renamed from Current non-smoker) Start:01-Aug-2018 Instruction Type:Patient Education Patient Instructions Indication:Current nonsmoker (Renamed from Current non-smoker) Start:01-Aug-2018 Instruction Type:Provider Instructions for Treatment How to access health informa tion online Indication:Osteoarthritis Start:04-Mar-2018 Instruction Type:Patient Education How to access health informa tion online - Detail Indication:Osteoarthritis Start:04-Mar-2018 Instruction Type:Patient Education Patient Instructions Indication:Osteoarthritis Start:04-Mar-2018 Instruction Type:Provider Instructions for Treatment How to access health informa tion online Indication:Anterior knee pain, left Start:18-Jan-2018 Instruction Type:Patient Education How to access health informa tion online - Detail Indication:Anterior knee pain, left Start:18-Jan-2018 Instruction Type:Patient Education Patient Instructions Indication:Anterior knee pain, left Start:18-Jan-2018 Instruction Type:Provider Instructions for Treatment How to access health informa tion online Indication:BMI 25.0-25.9,adult Start:13-Dec-2017 Instruction Type:Patient Education How to access health informa tion online - Detail Indication:BMI 25.0-25.9,adult Start:13-Dec-2017 Instruction Type:Patient Education Patient Instructions Indication:BMI 25.0-25.9,adult Start:13-Dec-2017 Instruction Type:Provider Instructions for Treatment How to access health informa tion online Indication:Anterior knee pain, left Start:02-Aug-2017 Instruction Type:Patient Education How to access health informa tion online - Detail Indication:Anterior knee pain, left Start:02-Aug-2017 Instruction Type:Patient Education Patient Instructions Indication:Anterior knee pain, left Start:02-Aug-2017 Instruction Type:Provider Instructions for Treatment How to access health informa tion online Indication:Dermatitis of eyelids of both eyes Start:18-Mar-2017 Instruction Type:Patient Education How to access health informa tion online - Detail Indication:Dermatitis of eyelids of both eyes Start:18-Mar-2017 Instruction Type:Patient Education Patient Instructions Indication:Dermatitis of eyelids of both eyes Start:18-Mar-2017 Instruction Type:Provider Instructions for Treatment How to access health informa tion online Indication:Current nonsmoker (Renamed from Current non-smoker) Start:12-Mar-2017 Instruction Type:Patient Education How to access health informa tion online - Detail Indication:Current nonsmoker (Renamed from Current non-smoker) Start:12-Mar-2017 Instruction Type:Patient Education Patient Instructions Indication:Current nonsmoker (Renamed from Current non-smoker) Start:12-Mar-2017 Instruction Type:Provider Instructions for Treatment How to access health informa tion online Indication:Benign neoplasm of skin Start:01-Mar-2017 Instruction Type:Patient Education How to access health informa tion online - Detail Indication:Benign neoplasm of skin Start:01-Mar-2017 Instruction Type:Patient Education Patient Instructions Indication:Benign neoplasm of skin Start:01-Mar-2017 Instruction Type:Provider Instructions for Treatment How to access health informa tion online Indication:BMI 25.0-25.9,adult Start:26-Jan-2017 Instruction Type:Patient Education How to access health informa tion online - Detail Indication:BMI 25.0-25.9,adult Start:26-Jan-2017 Instruction Type:Patient Education Patient Instructions Indication:BMI 25.0-25.9,adult Start:26-Jan-2017 Instruction Type:Provider Instructions for Treatment How to access health informa tion online Indication:Current nonsmoker (Renamed from Current non-smoker) Start:27-Aug-2016 Instruction Type:Patient Education How to access health informa tion online - Detail Indication:Current nonsmoker (Renamed from Current non-smoker) Start:27-Aug-2016 Instruction Type:Patient Education Patient Instructions Indication:Current nonsmoker (Renamed from Current non-smoker) Start:27-Aug-2016 Instruction Type:Provider Instructions for Treatment How to access health informa tion online Indication:Annual Medicare Physical (Renamed from Medicare annual wellness visit, subsequent) Start:12-Jun-2016 Instruction Type:Patient Education How to access health informa tion online - Detail Indication:Annual Medicare Physical (Renamed from Medicare annual wellness visit, subsequent) Start:12-Jun-2016 Instruction Type:Patient Education Patient Instructions Indication:Annual Medicare Physical (Renamed from Medicare annual wellness visit, subsequent) Start:12-Jun-2016 Instruction Type:Provider Instructions for Treatment How to access health informa tion online Indication:Acute ankle pain, left Start:14-Aug-2015 Instruction Type:Patient Education How to access health informa tion online - Detail Indication:Acute ankle pain, left Start:14-Aug-2015 Instruction Type:Patient Education Patient Instructions Indication:Acute ankle pain, left Start:14-Aug-2015 Instruction Type:Provider Instructions for Treatment How to access health informa tion online - Detail Indication:Heartburn Start:07-Jun-2015 Instruction Type:Patient Education How to access health informa tion online Indication:Heartburn Start:07-Jun-2015 Instruction Type:Patient Education Patient Instructions Indication:Heartburn Start:07-Jun-2015 Instruction Type:Provider Instructions for Treatment How to access health informa tion online - Detail Indication:Lumbago with sciatica Start:29-Mar-2015 Instruction Type:Patient Education Patient Instructions Indication:Lumbago with sciatica Start:29-Mar-2015 Instruction Type:Provider Instructions for Treatment Patient Instructions Indication:Myalgia Start:25-Jan-2015 Instruction Type:Provider Instructions for Treatment Patient Instructions Indication:Myalgia Start:10-Jan-2015 Instruction Type:Provider Instructions for Treatment Patient Instructions Indication:Dysuria Start:06-Jun-2014 Instruction Type:Provider Instructions for Treatment Patient Instructions Indication:Rash, drug Start:05-Jan-2014 Instruction Type:Provider Instructions for Treatment [facility]; [facility] Work Phone: Instructions* Name Dates Details Patient Instructions Indication:Coronary artery disease Start:04-May-2022 Instruction Type:Provider Instructions for Treatment How to Access Health Informa tion Online using Patient Portal and [employer] Indication:Coronary artery disease Start:04-May-2022 Instruction Type:Patient Education Patient Instructions Indication:Current nonsmoker (Renamed from Current non-smoker) Start:25-Dec-2021 Instruction Type:Provider Instructions for Treatment How to Access Health Informa tion Online using Patient Portal and [employer] Indication:Current nonsmoker (Renamed from Current non-smoker) Start:25-Dec-2021 Instruction Type:Patient Education Patient Instructions Indication:Annual Medicare Physical (Renamed from Medicare annual wellness visit, subsequent) Start:17-Jun-2021 Instruction Type:Provider Instructions for Treatment How to Access Health Informa tion Online using Patient Portal and [employer] Indication:Annual Medicare Physical (Renamed from Medicare annual wellness visit, subsequent) Start:17-Jun-2021 Instruction Type:Patient Education Patient Instructions Indication:Right hip pain Start:09-May-2021 Instruction Type:Provider Instructions for Treatment How to Access Health Informa tion Online using Patient Portal and [employer] Indication:Right hip pain Start:09-May-2021 Instruction Type:Patient Education Patient Instructions Indication:Bilateral hip bursitis Start:02-Apr-2021 Instruction Type:Provider Instructions for Treatment How to Access Health Informa tion Online using Patient Portal and [employer] Indication:Bilateral hip bursitis Start:02-Apr-2021 Instruction Type:Patient Education Patient Instructions Indication:Right hip pain Start:14-Feb-2021 Instruction Type:Provider Instructions for Treatment How to Access Health Informa tion Online using Patient Portal and [employer] Indication:Right hip pain Start:14-Feb-2021 Instruction Type:Patient Education patient instruction Indication:BMI 23.0-23.9, adult Start:17-Jan-2021 Instruction Type:Provider Instructions for Treatment How to Access Health Informa tion Online using Patient Portal and [employer] Apps Indication:BMI 23.0-23.9, adult Start:17-Jan-2021 Instruction Type:Patient Education How to access health informa tion online Indication:Current nonsmoker (Renamed from Current non-smoker) Start:28-Jun-2020 Instruction Type:Patient Education How to access health informa tion online - Detail Indication:Current nonsmoker (Renamed from Current non-smoker) Start:28-Jun-2020 Instruction Type:Patient Education Patient Instructions Indication:Current nonsmoker (Renamed from Current non-smoker) Start:28-Jun-2020 Instruction Type:Provider Instructions for Treatment How to access health informa tion online Indication:Abnormal fasting glucose Start:30-Jan-2020 Instruction Type:Patient Education How to access health informa tion online - Detail Indication:Abnormal fasting glucose Start:30-Jan-2020 Instruction Type:Patient Education Patient Instructions Indication:Abnormal fasting glucose Start:30-Jan-2020 Instruction Type:Provider Instructions for Treatment How to access health informa tion online Indication:Annual Medicare Physical (Renamed from Medicare annual wellness visit, subsequent) Start:31-Jul-2019 Instruction Type:Patient Education How to access health informa tion online - Detail Indication:Annual Medicare Physical (Renamed from Medicare annual wellness visit, subsequent) Start:31-Jul-2019 Instruction Type:Patient Education Patient Instructions Indication:Annual Medicare Physical (Renamed from Medicare annual wellness visit, subsequent) Start:31-Jul-2019 Instruction Type:Provider Instructions for Treatment How to access health informa tion online Indication:Annual Medicare Physical (Renamed from Medicare annual wellness visit, subsequent) Start:02-Feb-2019 Instruction Type:Patient Education How to access health informa tion online - Detail Indication:Annual Medicare Physical (Renamed from Medicare annual wellness visit, subsequent) Start:02-Feb-2019 Instruction Type:Patient Education Patient Instructions Indication:Annual Medicare Physical (Renamed from Medicare annual wellness visit, subsequent) Start:02-Feb-2019 Instruction Type:Provider Instructions for Treatment How to access health informa tion online Indication:Current nonsmoker (Renamed from Current non-smoker) Start:01-Aug-2018 Instruction Type:Patient Education How to access health informa tion online - Detail Indication:Current nonsmoker (Renamed from Current non-smoker) Start:01-Aug-2018 Instruction Type:Patient Education Patient Instructions Indication:Current nonsmoker (Renamed from Current non-smoker) Start:01-Aug-2018 Instruction Type:Provider Instructions for Treatment How to access health informa tion online Indication:Osteoarthritis Start:04-Mar-2018 Instruction Type:Patient Education How to access health informa tion online - Detail Indication:Osteoarthritis Start:04-Mar-2018 Instruction Type:Patient Education Patient Instructions Indication:Osteoarthritis Start:04-Mar-2018 Instruction Type:Provider Instructions for Treatment How to access health informa tion online Indication:Anterior knee pain, left Start:18-Jan-2018 Instruction Type:Patient Education How to access health informa tion online - Detail Indication:Anterior knee pain, left Start:18-Jan-2018 Instruction Type:Patient Education Patient Instructions Indication:Anterior knee pain, left Start:18-Jan-2018 Instruction Type:Provider Instructions for Treatment How to access health informa tion online Indication:BMI 25.0-25.9,adult Start:13-Dec-2017 Instruction Type:Patient Education How to access health informa tion online - Detail Indication:BMI 25.0-25.9,adult Start:13-Dec-2017 Instruction Type:Patient Education Patient Instructions Indication:BMI 25.0-25.9,adult Start:13-Dec-2017 Instruction Type:Provider Instructions for Treatment How to access health informa tion online Indication:Anterior knee pain, left Start:02-Aug-2017 Instruction Type:Patient Education How to access health informa tion online - Detail Indication:Anterior knee pain, left Start:02-Aug-2017 Instruction Type:Patient Education Patient Instructions Indication:Anterior knee pain, left Start:02-Aug-2017 Instruction Type:Provider Instructions for Treatment How to access health informa tion online Indication:Dermatitis of eyelids of both eyes Start:18-Mar-2017 Instruction Type:Patient Education How to access health informa tion online - Detail Indication:Dermatitis of eyelids of both eyes Start:18-Mar-2017 Instruction Type:Patient Education Patient Instructions Indication:Dermatitis of eyelids of both eyes Start:18-Mar-2017 Instruction Type:Provider Instructions for Treatment How to access health informa tion online Indication:Current nonsmoker (Renamed from Current non-smoker) Start:12-Mar-2017 Instruction Type:Patient Education How to access health informa tion online - Detail Indication:Current nonsmoker (Renamed from Current non-smoker) Start:12-Mar-2017 Instruction Type:Patient Education Patient Instructions Indication:Current nonsmoker (Renamed from Current non-smoker) Start:12-Mar-2017 Instruction Type:Provider Instructions for Treatment How to access health informa tion online Indication:Benign neoplasm of skin Start:01-Mar-2017 Instruction Type:Patient Education How to access health informa tion online - Detail Indication:Benign neoplasm of skin Start:01-Mar-2017 Instruction Type:Patient Education Patient Instructions Indication:Benign neoplasm of skin Start:01-Mar-2017 Instruction Type:Provider Instructions for Treatment How to access health informa tion online Indication:BMI 25.0-25.9,adult Start:26-Jan-2017 Instruction Type:Patient Education How to access health informa tion online - Detail Indication:BMI 25.0-25.9,adult Start:26-Jan-2017 Instruction Type:Patient Education Patient Instructions Indication:BMI 25.0-25.9,adult Start:26-Jan-2017 Instruction Type:Provider Instructions for Treatment How to access health informa tion online Indication:Current nonsmoker (Renamed from Current non-smoker) Start:27-Aug-2016 Instruction Type:Patient Education How to access health informa tion online - Detail Indication:Current nonsmoker (Renamed from Current non-smoker) Start:27-Aug-2016 Instruction Type:Patient Education Patient Instructions Indication:Current nonsmoker (Renamed from Current non-smoker) Start:27-Aug-2016 Instruction Type:Provider Instructions for Treatment How to access health informa tion online Indication:Annual Medicare Physical (Renamed from Medicare annual wellness visit, subsequent) Start:12-Jun-2016 Instruction Type:Patient Education How to access health informa tion online - Detail Indication:Annual Medicare Physical (Renamed from Medicare annual wellness visit, subsequent) Start:12-Jun-2016 Instruction Type:Patient Education Patient Instructions Indication:Annual Medicare Physical (Renamed from Medicare annual wellness visit, subsequent) Start:12-Jun-2016 Instruction Type:Provider Instructions for Treatment How to access health informa tion online Indication:Acute ankle pain, left Start:14-Aug-2015 Instruction Type:Patient Education How to access health informa tion online - Detail Indication:Acute ankle pain, left Start:14-Aug-2015 Instruction Type:Patient Education Patient Instructions Indication:Acute ankle pain, left Start:14-Aug-2015 Instruction Type:Provider Instructions for Treatment How to access health informa tion online - Detail Indication:Heartburn Start:07-Jun-2015 Instruction Type:Patient Education How to access health informa tion online Indication:Heartburn Start:07-Jun-2015 Instruction Type:Patient Education Patient Instructions Indication:Heartburn Start:07-Jun-2015 Instruction Type:Provider Instructions for Treatment How to access health informa tion online - Detail Indication:Lumbago with sciatica Start:29-Mar-2015 Instruction Type:Patient Education Patient Instructions Indication:Lumbago with sciatica Start:29-Mar-2015 Instruction Type:Provider Instructions for Treatment Patient Instructions Indication:Myalgia Start:25-Jan-2015 Instruction Type:Provider Instructions for Treatment Patient Instructions Indication:Myalgia Start:10-Jan-2015 Instruction Type:Provider Instructions for Treatment Patient Instructions Indication:Dysuria Start:06-Jun-2014 Instruction Type:Provider Instructions for Treatment Patient Instructions Indication:Rash, drug Start:05-Jan-2014 Instruction Type:Provider Instructions for Treatment [facility]; [facility] Work Phone: Instructions* Name Dates Details Patient Instructions Indication:Need for prophylactic vaccination and inoculation against influenza (Renamed from Need for immunization against influenza) Start:30-Jun-2022 Instruction Type:Provider Instructions for Treatment How to Access Health Informa tion Online using Patient Portal and [employer] Indication:Need for prophylactic vaccination and inoculation against influenza (Renamed from Need for immunization against influenza) Start:30-Jun-2022 Instruction Type:Patient Education Patient Instructions Indication:Coronary artery disease Start:04-May-2022 Instruction Type:Provider Instructions for Treatment How to Access Health Informa tion Online using Patient Portal and [employer] Indication:Coronary artery disease Start:04-May-2022 Instruction Type:Patient Education Patient Instructions Indication:Current nonsmoker (Renamed from Current non-smoker) Start:25-Dec-2021 Instruction Type:Provider Instructions for Treatment How to Access Health Informa tion Online using Patient Portal and [employer] Indication:Current nonsmoker (Renamed from Current non-smoker) Start:25-Dec-2021 Instruction Type:Patient Education Patient Instructions Indication:Annual Medicare Physical (Renamed from Medicare annual wellness visit, subsequent) Start:17-Jun-2021 Instruction Type:Provider Instructions for Treatment How to Access Health Informa tion Online using Patient Portal and [employer] Indication:Annual Medicare Physical (Renamed from Medicare annual wellness visit, subsequent) Start:17-Jun-2021 Instruction Type:Patient Education Patient Instructions Indication:Right hip pain Start:09-May-2021 Instruction Type:Provider Instructions for Treatment How to Access Health Informa tion Online using Patient Portal and [employer] Indication:Right hip pain Start:09-May-2021 Instruction Type:Patient Education Patient Instructions Indication:Bilateral hip bursitis Start:02-Apr-2021 Instruction Type:Provider Instructions for Treatment How to Access Health Informa tion Online using Patient Portal and [employer] Indication:Bilateral hip bursitis Start:02-Apr-2021 Instruction Type:Patient Education Patient Instructions Indication:Right hip pain Start:14-Feb-2021 Instruction Type:Provider Instructions for Treatment How to Access Health Informa tion Online using Patient Portal and [employer] Indication:Right hip pain Start:14-Feb-2021 Instruction Type:Patient Education patient instruction Indication:BMI 23.0-23.9, adult Start:17-Jan-2021 Instruction Type:Provider Instructions for Treatment How to Access Health Informa tion Online using Patient Portal and [employer] Indication:BMI 23.0-23.9, adult Start:17-Jan-2021 Instruction Type:Patient Education How to access health informa tion online Indication:Current nonsmoker (Renamed from Current non-smoker) Start:28-Jun-2020 Instruction Type:Patient Education How to access health informa tion online - Detail Indication:Current nonsmoker (Renamed from Current non-smoker) Start:28-Jun-2020 Instruction Type:Patient Education Patient Instructions Indication:Current nonsmoker (Renamed from Current non-smoker) Start:28-Jun-2020 Instruction Type:Provider Instructions for Treatment How to access health informa tion online Indication:Abnormal fasting glucose Start:30-Jan-2020 Instruction Type:Patient Education How to access health informa tion online - Detail Indication:Abnormal fasting glucose Start:30-Jan-2020 Instruction Type:Patient Education Patient Instructions Indication:Abnormal fasting glucose Start:30-Jan-2020 Instruction Type:Provider Instructions for Treatment How to access health informa tion online Indication:Annual Medicare Physical (Renamed from Medicare annual wellness visit, subsequent) Start:31-Jul-2019 Instruction Type:Patient Education How to access health informa tion online - Detail Indication:Annual Medicare Physical (Renamed from Medicare annual wellness visit, subsequent) Start:31-Jul-2019 Instruction Type:Patient Education Patient Instructions Indication:Annual Medicare Physical (Renamed from Medicare annual wellness visit, subsequent) Start:31-Jul-2019 Instruction Type:Provider Instructions for Treatment How to access health informa tion online Indication:Annual Medicare Physical (Renamed from Medicare annual wellness visit, subsequent) Start:02-Feb-2019 Instruction Type:Patient Education How to access health informa tion online - Detail Indication:Annual Medicare Physical (Renamed from Medicare annual wellness visit, subsequent) Start:02-Feb-2019 Instruction Type:Patient Education Patient Instructions Indication:Annual Medicare Physical (Renamed from Medicare annual wellness visit, subsequent) Start:02-Feb-2019 Instruction Type:Provider Instructions for Treatment How to access health informa tion online Indication:Current nonsmoker (Renamed from Current non-smoker) Start:01-Aug-2018 Instruction Type:Patient Education How to access health informa tion online - Detail Indication:Current nonsmoker (Renamed from Current non-smoker) Start:01-Aug-2018 Instruction Type:Patient Education Patient Instructions Indication:Current nonsmoker (Renamed from Current non-smoker) Start:01-Aug-2018 Instruction Type:Provider Instructions for Treatment How to access health informa tion online Indication:Osteoarthritis Start:04-Mar-2018 Instruction Type:Patient Education How to access health informa tion online - Detail Indication:Osteoarthritis Start:04-Mar-2018 Instruction Type:Patient Education Patient Instructions Indication:Osteoarthritis Start:04-Mar-2018 Instruction Type:Provider Instructions for Treatment How to access health informa tion online Indication:Anterior knee pain, left Start:18-Jan-2018 Instruction Type:Patient Education How to access health informa tion online - Detail Indication:Anterior knee pain, left Start:18-Jan-2018 Instruction Type:Patient Education Patient Instructions Indication:Anterior knee pain, left Start:18-Jan-2018 Instruction Type:Provider Instructions for Treatment How to access health informa tion online Indication:BMI 25.0-25.9,adult Start:13-Dec-2017 Instruction Type:Patient Education How to access health informa tion online - Detail Indication:BMI 25.0-25.9,adult Start:13-Dec-2017 Instruction Type:Patient Education Patient Instructions Indication:BMI 25.0-25.9,adult Start:13-Dec-2017 Instruction Type:Provider Instructions for Treatment How to access health informa tion online Indication:Anterior knee pain, left Start:02-Aug-2017 Instruction Type:Patient Education How to access health informa tion online - Detail Indication:Anterior knee pain, left Start:02-Aug-2017 Instruction Type:Patient Education Patient Instructions Indication:Anterior knee pain, left Start:02-Aug-2017 Instruction Type:Provider Instructions for Treatment How to access health informa tion online Indication:Dermatitis of eyelids of both eyes Start:18-Mar-2017 Instruction Type:Patient Education How to access health informa tion online - Detail Indication:Dermatitis of eyelids of both eyes Start:18-Mar-2017 Instruction Type:Patient Education Patient Instructions Indication:Dermatitis of eyelids of both eyes Start:18-Mar-2017 Instruction Type:Provider Instructions for Treatment How to access health informa tion online Indication:Current nonsmoker (Renamed from Current non-smoker) Start:12-Mar-2017 Instruction Type:Patient Education How to access health informa tion online - Detail Indication:Current nonsmoker (Renamed from Current non-smoker) Start:12-Mar-2017 Instruction Type:Patient Education Patient Instructions Indication:Current nonsmoker (Renamed from Current non-smoker) Start:12-Mar-2017 Instruction Type:Provider Instructions for Treatment How to access health informa tion online Indication:Benign neoplasm of skin Start:01-Mar-2017 Instruction Type:Patient Education How to access health informa tion online - Detail Indication:Benign neoplasm of skin Start:01-Mar-2017 Instruction Type:Patient Education Patient Instructions Indication:Benign neoplasm of skin Start:01-Mar-2017 Instruction Type:Provider Instructions for Treatment How to access health informa tion online Indication:BMI 25.0-25.9,adult Start:26-Jan-2017 Instruction Type:Patient Education How to access health informa tion online - Detail Indication:BMI 25.0-25.9,adult Start:26-Jan-2017 Instruction Type:Patient Education Patient Instructions Indication:BMI 25.0-25.9,adult Start:26-Jan-2017 Instruction Type:Provider Instructions for Treatment How to access health informa tion online Indication:Current nonsmoker (Renamed from Current non-smoker) Start:27-Aug-2016 Instruction Type:Patient Education How to access health informa tion online - Detail Indication:Current nonsmoker (Renamed from Current non-smoker) Start:27-Aug-2016 Instruction Type:Patient Education Patient Instructions Indication:Current nonsmoker (Renamed from Current non-smoker) Start:27-Aug-2016 Instruction Type:Provider Instructions for Treatment How to access health informa tion online Indication:Annual Medicare Physical (Renamed from Medicare annual wellness visit, subsequent) Start:12-Jun-2016 Instruction Type:Patient Education How to access health informa tion online - Detail Indication:Annual Medicare Physical (Renamed from Medicare annual wellness visit, subsequent) Start:12-Jun-2016 Instruction Type:Patient Education Patient Instructions Indication:Annual Medicare Physical (Renamed from Medicare annual wellness visit, subsequent) Start:12-Jun-2016 Instruction Type:Provider Instructions for Treatment How to access health informa tion online Indication:Acute ankle pain, left Start:14-Aug-2015 Instruction Type:Patient Education How to access health informa tion online - Detail Indication:Acute ankle pain, left Start:14-Aug-2015 Instruction Type:Patient Education Patient Instructions Indication:Acute ankle pain, left Start:14-Aug-2015 Instruction Type:Provider Instructions for Treatment How to access health informa tion online - Detail Indication:Heartburn Start:07-Jun-2015 Instruction Type:Patient Education How to access health informa tion online Indication:Heartburn Start:07-Jun-2015 Instruction Type:Patient Education Patient Instructions Indication:Heartburn Start:07-Jun-2015 Instruction Type:Provider Instructions for Treatment How to access health informa tion online - Detail Indication:Lumbago with sciatica Start:29-Mar-2015 Instruction Type:Patient Education Patient Instructions Indication:Lumbago with sciatica Start:29-Mar-2015 Instruction Type:Provider Instructions for Treatment Patient Instructions Indication:Myalgia Start:25-Jan-2015 Instruction Type:Provider Instructions for Treatment Patient Instructions Indication:Myalgia Start:10-Jan-2015 Instruction Type:Provider Instructions for Treatment Patient Instructions Indication:Dysuria Start:06-Jun-2014 Instruction Type:Provider Instructions for Treatment Patient Instructions Indication:Rash, drug Start:05-Jan-2014 Instruction Type:Provider Instructions for Treatment [facility]; [facility] Work Phone: Instructions* Name Dates Details Patient Instructions Indication:Need for prophylactic vaccination and inoculation against influenza (Renamed from Need for immunization against influenza) Start:30-Jun-2022 Instruction Type:Provider Instructions for Treatment How to Access Health Informa tion Online using Patient Portal and [employer] Apps Indication:Need for prophylactic vaccination and inoculation against influenza (Renamed from Need for immunization against influenza) Start:30-Jun-2022 Instruction Type:Patient Education Patient Instructions Indication:Coronary artery disease Start:04-May-2022 Instruction Type:Provider Instructions for Treatment How to Access Health Informa tion Online using Patient Portal and [place] Indication:Coronary artery disease Start:04-May-2022 Instruction Type:Patient Education Patient Instructions Indication:Current nonsmoker (Renamed from Current non-smoker) Start:25-Dec-2021 Instruction Type:Provider Instructions for Treatment How to Access Health Informa tion Online using Patient Portal and [employer] Indication:Current nonsmoker (Renamed from Current non-smoker) Start:25-Dec-2021 Instruction Type:Patient Education Patient Instructions Indication:Annual Medicare Physical (Renamed from Medicare annual wellness visit, subsequent) Start:17-Jun-2021 Instruction Type:Provider Instructions for Treatment How to Access Health Informa tion Online using Patient Portal and [employer] Indication:Annual Medicare Physical (Renamed from Medicare annual wellness visit, subsequent) Start:17-Jun-2021 Instruction Type:Patient Education Patient Instructions Indication:Right hip pain Start:09-May-2021 Instruction Type:Provider Instructions for Treatment How to Access Health Informa tion Online using Patient Portal and [employer] Indication:Right hip pain Start:09-May-2021 Instruction Type:Patient Education Patient Instructions Indication:Bilateral hip bursitis Start:02-Apr-2021 Instruction Type:Provider Instructions for Treatment How to Access Health Informa tion Online using Patient Portal and [employer] Apps Indication:Bilateral hip bursitis Start:02-Apr-2021 Instruction Type:Patient Education Patient Instructions Indication:Right hip pain Start:14-Feb-2021 Instruction Type:Provider Instructions for Treatment How to Access Health Informa tion Online using Patient Portal and [employer] Apps Indication:Right hip pain Start:14-Feb-2021 Instruction Type:Patient Education patient instruction Indication:BMI 23.0-23.9, adult Start:17-Jan-2021 Instruction Type:Provider Instructions for Treatment How to Access Health Informa tion Online using Patient Portal and [employer] Apps Indication:BMI 23.0-23.9, adult Start:17-Jan-2021 Instruction Type:Patient Education How to access health informa tion online Indication:Current nonsmoker (Renamed from Current non-smoker) Start:28-Jun-2020 Instruction Type:Patient Education How to access health informa tion online - Detail Indication:Current nonsmoker (Renamed from Current non-smoker) Start:28-Jun-2020 Instruction Type:Patient Education Patient Instructions Indication:Current nonsmoker (Renamed from Current non-smoker) Start:28-Jun-2020 Instruction Type:Provider Instructions for Treatment How to access health informa tion online Indication:Abnormal fasting glucose Start:30-Jan-2020 Instruction Type:Patient Education How to access health informa tion online - Detail Indication:Abnormal fasting glucose Start:30-Jan-2020 Instruction Type:Patient Education Patient Instructions Indication:Abnormal fasting glucose Start:30-Jan-2020 Instruction Type:Provider Instructions for Treatment How to access health informa tion online Indication:Annual Medicare Physical (Renamed from Medicare annual wellness visit, subsequent) Start:31-Jul-2019 Instruction Type:Patient Education How to access health informa tion online - Detail Indication:Annual Medicare Physical (Renamed from Medicare annual wellness visit, subsequent) Start:31-Jul-2019 Instruction Type:Patient Education Patient Instructions Indication:Annual Medicare Physical (Renamed from Medicare annual wellness visit, subsequent) Start:31-Jul-2019 Instruction Type:Provider Instructions for Treatment How to access health informa tion online Indication:Annual Medicare Physical (Renamed from Medicare annual wellness visit, subsequent) Start:02-Feb-2019 Instruction Type:Patient Education How to access health informa tion online - Detail Indication:Annual Medicare Physical (Renamed from Medicare annual wellness visit, subsequent) Start:02-Feb-2019 Instruction Type:Patient Education Patient Instructions Indication:Annual Medicare Physical (Renamed from Medicare annual wellness visit, subsequent) Start:02-Feb-2019 Instruction Type:Provider Instructions for Treatment How to access health informa tion online Indication:Current nonsmoker (Renamed from Current non-smoker) Start:01-Aug-2018 Instruction Type:Patient Education How to access health informa tion online - Detail Indication:Current nonsmoker (Renamed from Current non-smoker) Start:01-Aug-2018 Instruction Type:Patient Education Patient Instructions Indication:Current nonsmoker (Renamed from Current non-smoker) Start:01-Aug-2018 Instruction Type:Provider Instructions for Treatment How to access health informa tion online Indication:Osteoarthritis Start:04-Mar-2018 Instruction Type:Patient Education How to access health informa tion online - Detail Indication:Osteoarthritis Start:04-Mar-2018 Instruction Type:Patient Education Patient Instructions Indication:Osteoarthritis Start:04-Mar-2018 Instruction Type:Provider Instructions for Treatment How to access health informa tion online Indication:Anterior knee pain, left Start:18-Jan-2018 Instruction Type:Patient Education How to access health informa tion online - Detail Indication:Anterior knee pain, left Start:18-Jan-2018 Instruction Type:Patient Education Patient Instructions Indication:Anterior knee pain, left Start:18-Jan-2018 Instruction Type:Provider Instructions for Treatment How to access health informa tion online Indication:BMI 25.0-25.9,adult Start:13-Dec-2017 Instruction Type:Patient Education How to access health informa tion online - Detail Indication:BMI 25.0-25.9,adult Start:13-Dec-2017 Instruction Type:Patient Education Patient Instructions Indication:BMI 25.0-25.9,adult Start:13-Dec-2017 Instruction Type:Provider Instructions for Treatment How to access health informa tion online Indication:Anterior knee pain, left Start:02-Aug-2017 Instruction Type:Patient Education How to access health informa tion online - Detail Indication:Anterior knee pain, left Start:02-Aug-2017 Instruction Type:Patient Education Patient Instructions Indication:Anterior knee pain, left Start:02-Aug-2017 Instruction Type:Provider Instructions for Treatment How to access health informa tion online Indication:Dermatitis of eyelids of both eyes Start:18-Mar-2017 Instruction Type:Patient Education How to access health informa tion online - Detail Indication:Dermatitis of eyelids of both eyes Start:18-Mar-2017 Instruction Type:Patient Education Patient Instructions Indication:Dermatitis of eyelids of both eyes Start:18-Mar-2017 Instruction Type:Provider Instructions for Treatment How to access health informa tion online Indication:Current nonsmoker (Renamed from Current non-smoker) Start:12-Mar-2017 Instruction Type:Patient Education How to access health informa tion online - Detail Indication:Current nonsmoker (Renamed from Current non-smoker) Start:12-Mar-2017 Instruction Type:Patient Education Patient Instructions Indication:Current nonsmoker (Renamed from Current non-smoker) Start:12-Mar-2017 Instruction Type:Provider Instructions for Treatment How to access health informa tion online Indication:Benign neoplasm of skin Start:01-Mar-2017 Instruction Type:Patient Education How to access health informa tion online - Detail Indication:Benign neoplasm of skin Start:01-Mar-2017 Instruction Type:Patient Education Patient Instructions Indication:Benign neoplasm of skin Start:01-Mar-2017 Instruction Type:Provider Instructions for Treatment How to access health informa tion online Indication:BMI 25.0-25.9,adult Start:26-Jan-2017 Instruction Type:Patient Education How to access health informa tion online - Detail Indication:BMI 25.0-25.9,adult Start:26-Jan-2017 Instruction Type:Patient Education Patient Instructions Indication:BMI 25.0-25.9,adult Start:26-Jan-2017 Instruction Type:Provider Instructions for Treatment How to access health informa tion online Indication:Current nonsmoker (Renamed from Current non-smoker) Start:27-Aug-2016 Instruction Type:Patient Education How to access health informa tion online - Detail Indication:Current nonsmoker (Renamed from Current non-smoker) Start:27-Aug-2016 Instruction Type:Patient Education Patient Instructions Indication:Current nonsmoker (Renamed from Current non-smoker) Start:27-Aug-2016 Instruction Type:Provider Instructions for Treatment How to access health informa tion online Indication:Annual Medicare Physical (Renamed from Medicare annual wellness visit, subsequent) Start:12-Jun-2016 Instruction Type:Patient Education How to access health informa tion online - Detail Indication:Annual Medicare Physical (Renamed from Medicare annual wellness visit, subsequent) Start:12-Jun-2016 Instruction Type:Patient Education Patient Instructions Indication:Annual Medicare Physical (Renamed from Medicare annual wellness visit, subsequent) Start:12-Jun-2016 Instruction Type:Provider Instructions for Treatment How to access health informa tion online Indication:Acute ankle pain, left Start:14-Aug-2015 Instruction Type:Patient Education How to access health informa tion online - Detail Indication:Acute ankle pain, left Start:14-Aug-2015 Instruction Type:Patient Education Patient Instructions Indication:Acute ankle pain, left Start:14-Aug-2015 Instruction Type:Provider Instructions for Treatment How to access health informa tion online - Detail Indication:Heartburn Start:07-Jun-2015 Instruction Type:Patient Education How to access health informa tion online Indication:Heartburn Start:07-Jun-2015 Instruction Type:Patient Education Patient Instructions Indication:Heartburn Start:07-Jun-2015 Instruction Type:Provider Instructions for Treatment How to access health informa tion online - Detail Indication:Lumbago with sciatica Start:29-Mar-2015 Instruction Type:Patient Education Patient Instructions Indication:Lumbago with sciatica Start:29-Mar-2015 Instruction Type:Provider Instructions for Treatment Patient Instructions Indication:Myalgia Start:25-Jan-2015 Instruction Type:Provider Instructions for Treatment Patient Instructions Indication:Myalgia Start:10-Jan-2015 Instruction Type:Provider Instructions for Treatment Patient Instructions Indication:Dysuria Start:06-Jun-2014 Instruction Type:Provider Instructions for Treatment Patient Instructions Indication:Rash, drug Start:05-Jan-2014 Instruction Type:Provider Instructions for Treatment [facility]; [facility] Work Phone: Instructions* Name Dates Details How to Access Health Informa tion Online using Patient Portal and [employer] Indication:Current nonsmoker (Renamed from Current non-smoker) Start:31-Dec-2022 Instruction Type:Patient Education Patient Instructions Indication:Current nonsmoker (Renamed from Current non-smoker) Start:31-Dec-2022 Instruction Type:Provider Instructions for Treatment Patient Instructions Indication:Need for prophylactic vaccination and inoculation against influenza (Renamed from Need for immunization against influenza) Start:30-Jun-2022 Instruction Type:Provider Instructions for Treatment How to Access Health Informa tion Online using Patient Portal and [employer] Indication:Need for prophylactic vaccination and inoculation against influenza (Renamed from Need for immunization against influenza) Start:30-Jun-2022 Instruction Type:Patient Education Patient Instructions Indication:Coronary artery disease Start:04-May-2022 Instruction Type:Provider Instructions for Treatment How to Access Health Informa tion Online using Patient Portal and [employer] Indication:Coronary artery disease Start:04-May-2022 Instruction Type:Patient Education Patient Instructions Indication:Current nonsmoker (Renamed from Current non-smoker) Start:25-Dec-2021 Instruction Type:Provider Instructions for Treatment How to Access Health Informa tion Online using Patient Portal and [employer] Indication:Current nonsmoker (Renamed from Current non-smoker) Start:25-Dec-2021 Instruction Type:Patient Education Patient Instructions Indication:Annual Medicare Physical (Renamed from Medicare annual wellness visit, subsequent) Start:17-Jun-2021 Instruction Type:Provider Instructions for Treatment How to Access Health Informa tion Online using Patient Portal and [employer] Indication:Annual Medicare Physical (Renamed from Medicare annual wellness visit, subsequent) Start:17-Jun-2021 Instruction Type:Patient Education Patient Instructions Indication:Right hip pain Start:09-May-2021 Instruction Type:Provider Instructions for Treatment How to Access Health Informa tion Online using Patient Portal and [employer] Indication:Right hip pain Start:09-May-2021 Instruction Type:Patient Education Patient Instructions Indication:Bilateral hip bursitis Start:02-Apr-2021 Instruction Type:Provider Instructions for Treatment How to Access Health Informa tion Online using Patient Portal and [employer] Indication:Bilateral hip bursitis Start:02-Apr-2021 Instruction Type:Patient Education Patient Instructions Indication:Right hip pain Start:14-Feb-2021 Instruction Type:Provider Instructions for Treatment How to Access Health Informa tion Online using Patient Portal and [employer] Indication:Right hip pain Start:14-Feb-2021 Instruction Type:Patient Education patient instruction Indication:BMI 23.0-23.9, adult Start:17-Jan-2021 Instruction Type:Provider Instructions for Treatment How to Access Health Informa tion Online using Patient Portal and [employer] Indication:BMI 23.0-23.9, adult Start:17-Jan-2021 Instruction Type:Patient Education How to access health informa tion online Indication:Current nonsmoker (Renamed from Current non-smoker) Start:28-Jun-2020 Instruction Type:Patient Education How to access health informa tion online - Detail Indication:Current nonsmoker (Renamed from Current non-smoker) Start:28-Jun-2020 Instruction Type:Patient Education Patient Instructions Indication:Current nonsmoker (Renamed from Current non-smoker) Start:28-Jun-2020 Instruction Type:Provider Instructions for Treatment How to access health informa tion online Indication:Abnormal fasting glucose Start:30-Jan-2020 Instruction Type:Patient Education How to access health informa tion online - Detail Indication:Abnormal fasting glucose Start:30-Jan-2020 Instruction Type:Patient Education Patient Instructions Indication:Abnormal fasting glucose Start:30-Jan-2020 Instruction Type:Provider Instructions for Treatment How to access health informa tion online Indication:Annual Medicare Physical (Renamed from Medicare annual wellness visit, subsequent) Start:31-Jul-2019 Instruction Type:Patient Education How to access health informa tion online - Detail Indication:Annual Medicare Physical (Renamed from Medicare annual wellness visit, subsequent) Start:31-Jul-2019 Instruction Type:Patient Education Patient Instructions Indication:Annual Medicare Physical (Renamed from Medicare annual wellness visit, subsequent) Start:31-Jul-2019 Instruction Type:Provider Instructions for Treatment How to access health informa tion online Indication:Annual Medicare Physical (Renamed from Medicare annual wellness visit, subsequent) Start:02-Feb-2019 Instruction Type:Patient Education How to access health informa tion online - Detail Indication:Annual Medicare Physical (Renamed from Medicare annual wellness visit, subsequent) Start:02-Feb-2019 Instruction Type:Patient Education Patient Instructions Indication:Annual Medicare Physical (Renamed from Medicare annual wellness visit, subsequent) Start:02-Feb-2019 Instruction Type:Provider Instructions for Treatment How to access health informa tion online Indication:Current nonsmoker (Renamed from Current non-smoker) Start:01-Aug-2018 Instruction Type:Patient Education How to access health informa tion online - Detail Indication:Current nonsmoker (Renamed from Current non-smoker) Start:01-Aug-2018 Instruction Type:Patient Education Patient Instructions Indication:Current nonsmoker (Renamed from Current non-smoker) Start:01-Aug-2018 Instruction Type:Provider Instructions for Treatment How to access health informa tion online Indication:Osteoarthritis Start:04-Mar-2018 Instruction Type:Patient Education How to access health informa tion online - Detail Indication:Osteoarthritis Start:04-Mar-2018 Instruction Type:Patient Education Patient Instructions Indication:Osteoarthritis Start:04-Mar-2018 Instruction Type:Provider Instructions for Treatment How to access health informa tion online Indication:Anterior knee pain, left Start:18-Jan-2018 Instruction Type:Patient Education How to access health informa tion online - Detail Indication:Anterior knee pain, left Start:18-Jan-2018 Instruction Type:Patient Education Patient Instructions Indication:Anterior knee pain, left Start:18-Jan-2018 Instruction Type:Provider Instructions for Treatment How to access health informa tion online Indication:BMI 25.0-25.9,adult Start:13-Dec-2017 Instruction Type:Patient Education How to access health informa tion online - Detail Indication:BMI 25.0-25.9,adult Start:13-Dec-2017 Instruction Type:Patient Education Patient Instructions Indication:BMI 25.0-25.9,adult Start:13-Dec-2017 Instruction Type:Provider Instructions for Treatment How to access health informa tion online Indication:Anterior knee pain, left Start:02-Aug-2017 Instruction Type:Patient Education How to access health informa tion online - Detail Indication:Anterior knee pain, left Start:02-Aug-2017 Instruction Type:Patient Education Patient Instructions Indication:Anterior knee pain, left Start:02-Aug-2017 Instruction Type:Provider Instructions for Treatment How to access health informa tion online Indication:Dermatitis of eyelids of both eyes Start:18-Mar-2017 Instruction Type:Patient Education How to access health informa tion online - Detail Indication:Dermatitis of eyelids of both eyes Start:18-Mar-2017 Instruction Type:Patient Education Patient Instructions Indication:Dermatitis of eyelids of both eyes Start:18-Mar-2017 Instruction Type:Provider Instructions for Treatment How to access health informa tion online Indication:Current nonsmoker (Renamed from Current non-smoker) Start:12-Mar-2017 Instruction Type:Patient Education How to access health informa tion online - Detail Indication:Current nonsmoker (Renamed from Current non-smoker) Start:12-Mar-2017 Instruction Type:Patient Education Patient Instructions Indication:Current nonsmoker (Renamed from Current non-smoker) Start:12-Mar-2017 Instruction Type:Provider Instructions for Treatment How to access health informa tion online Indication:Benign neoplasm of skin Start:01-Mar-2017 Instruction Type:Patient Education How to access health informa tion online - Detail Indication:Benign neoplasm of skin Start:01-Mar-2017 Instruction Type:Patient Education Patient Instructions Indication:Benign neoplasm of skin Start:01-Mar-2017 Instruction Type:Provider Instructions for Treatment How to access health informa tion online Indication:BMI 25.0-25.9,adult Start:26-Jan-2017 Instruction Type:Patient Education How to access health informa tion online - Detail Indication:BMI 25.0-25.9,adult Start:26-Jan-2017 Instruction Type:Patient Education Patient Instructions Indication:BMI 25.0-25.9,adult Start:26-Jan-2017 Instruction Type:Provider Instructions for Treatment How to access health informa tion online Indication:Current nonsmoker (Renamed from Current non-smoker) Start:27-Aug-2016 Instruction Type:Patient Education How to access health informa tion online - Detail Indication:Current nonsmoker (Renamed from Current non-smoker) Start:27-Aug-2016 Instruction Type:Patient Education Patient Instructions Indication:Current nonsmoker (Renamed from Current non-smoker) Start:27-Aug-2016 Instruction Type:Provider Instructions for Treatment How to access health informa tion online Indication:Annual Medicare Physical (Renamed from Medicare annual wellness visit, subsequent) Start:12-Jun-2016 Instruction Type:Patient Education How to access health informa tion online - Detail Indication:Annual Medicare Physical (Renamed from Medicare annual wellness visit, subsequent) Start:12-Jun-2016 Instruction Type:Patient Education Patient Instructions Indication:Annual Medicare Physical (Renamed from Medicare annual wellness visit, subsequent) Start:12-Jun-2016 Instruction Type:Provider Instructions for Treatment How to access health informa tion online Indication:Acute ankle pain, left Start:14-Aug-2015 Instruction Type:Patient Education How to access health informa tion online - Detail Indication:Acute ankle pain, left Start:14-Aug-2015 Instruction Type:Patient Education Patient Instructions Indication:Acute ankle pain, left Start:14-Aug-2015 Instruction Type:Provider Instructions for Treatment How to access health informa tion online - Detail Indication:Heartburn Start:07-Jun-2015 Instruction Type:Patient Education How to access health informa tion online Indication:Heartburn Start:07-Jun-2015 Instruction Type:Patient Education Patient Instructions Indication:Heartburn Start:07-Jun-2015 Instruction Type:Provider Instructions for Treatment How to access health informa tion online - Detail Indication:Lumbago with sciatica Start:29-Mar-2015 Instruction Type:Patient Education Patient Instructions Indication:Lumbago with sciatica Start:29-Mar-2015 Instruction Type:Provider Instructions for Treatment Patient Instructions Indication:Myalgia Start:25-Jan-2015 Instruction Type:Provider Instructions for Treatment Patient Instructions Indication:Myalgia Start:10-Jan-2015 Instruction Type:Provider Instructions for Treatment Patient Instructions Indication:Dysuria Start:06-Jun-2014 Instruction Type:Provider Instructions for Treatment Patient Instructions Indication:Rash, drug Start:05-Jan-2014 Instruction Type:Provider Instructions for Treatment [facility] Work Phone: Instructions* Name Dates Details Patient Instructions Indication:BMI 24.0-24.9, adult Start:18-Jan-2023 Instruction Type:Provider Instructions for Treatment How to Access Health Informa tion Online using Patient Portal and [employer] Indication:BMI 24.0-24.9, adult Start:18-Jan-2023 Instruction Type:Patient Education How to Access Health Informa tion Online using Patient [employer] and [employer] Indication:Current nonsmoker (Renamed from Current non-smoker) Start:31-Dec-2022 Instruction Type:Patient Education Patient Instructions Indication:Current nonsmoker (Renamed from Current non-smoker) Start:31-Dec-2022 Instruction Type:Provider Instructions for Treatment Patient Instructions Indication:Need for prophylactic vaccination and inoculation against influenza (Renamed from Need for immunization against influenza) Start:30-Jun-2022 Instruction Type:Provider Instructions for Treatment How to Access Health Informa tion Online using Patient Portal and [employer] Indication:Need for prophylactic vaccination and inoculation against influenza (Renamed from Need for immunization against influenza) Start:30-Jun-2022 Instruction Type:Patient Education Patient Instructions Indication:Coronary artery disease Start:04-May-2022 Instruction Type:Provider Instructions for Treatment How to Access Health Informa tion Online using Patient Portal and [employer] Indication:Coronary artery disease Start:04-May-2022 Instruction Type:Patient Education Patient Instructions Indication:Current nonsmoker (Renamed from Current non-smoker) Start:25-Dec-2021 Instruction Type:Provider Instructions for Treatment How to Access Health Informa tion Online using Patient Portal and [employer] Indication:Current nonsmoker (Renamed from Current non-smoker) Start:25-Dec-2021 Instruction Type:Patient Education Patient Instructions Indication:Annual Medicare Physical (Renamed from Medicare annual wellness visit, subsequent) Start:17-Jun-2021 Instruction Type:Provider Instructions for Treatment How to Access Health Informa tion Online using Patient Portal and [employer] Indication:Annual Medicare Physical (Renamed from Medicare annual wellness visit, subsequent) Start:17-Jun-2021 Instruction Type:Patient Education Patient Instructions Indication:Right hip pain Start:09-May-2021 Instruction Type:Provider Instructions for Treatment How to Access Health Informa tion Online using Patient Portal and [employer] Indication:Right hip pain Start:09-May-2021 Instruction Type:Patient Education Patient Instructions Indication:Bilateral hip bursitis Start:02-Apr-2021 Instruction Type:Provider Instructions for Treatment How to Access Health Informa tion Online using Patient Portal and [employer] Indication:Bilateral hip bursitis Start:02-Apr-2021 Instruction Type:Patient Education Patient Instructions Indication:Right hip pain Start:14-Feb-2021 Instruction Type:Provider Instructions for Treatment How to Access Health Informa tion Online using Patient Portal and [employer] Indication:Right hip pain Start:14-Feb-2021 Instruction Type:Patient Education patient instruction Indication:BMI 23.0-23.9, adult Start:17-Jan-2021 Instruction Type:Provider Instructions for Treatment How to Access Health Informa tion Online using Patient Portal and [employer] Indication:BMI 23.0-23.9, adult Start:17-Jan-2021 Instruction Type:Patient Education How to access health informa tion online Indication:Current nonsmoker (Renamed from Current non-smoker) Start:28-Jun-2020 Instruction Type:Patient Education How to access health informa tion online - Detail Indication:Current nonsmoker (Renamed from Current non-smoker) Start:28-Jun-2020 Instruction Type:Patient Education Patient Instructions Indication:Current nonsmoker (Renamed from Current non-smoker) Start:28-Jun-2020 Instruction Type:Provider Instructions for Treatment How to access health informa tion online Indication:Abnormal fasting glucose Start:30-Jan-2020 Instruction Type:Patient Education How to access health informa tion online - Detail Indication:Abnormal fasting glucose Start:30-Jan-2020 Instruction Type:Patient Education Patient Instructions Indication:Abnormal fasting glucose Start:30-Jan-2020 Instruction Type:Provider Instructions for Treatment How to access health informa tion online Indication:Annual Medicare Physical (Renamed from Medicare annual wellness visit, subsequent) Start:31-Jul-2019 Instruction Type:Patient Education How to access health informa tion online - Detail Indication:Annual Medicare Physical (Renamed from Medicare annual wellness visit, subsequent) Start:31-Jul-2019 Instruction Type:Patient Education Patient Instructions Indication:Annual Medicare Physical (Renamed from Medicare annual wellness visit, subsequent) Start:31-Jul-2019 Instruction Type:Provider Instructions for Treatment How to access health informa tion online Indication:Annual Medicare Physical (Renamed from Medicare annual wellness visit, subsequent) Start:02-Feb-2019 Instruction Type:Patient Education How to access health informa tion online - Detail Indication:Annual Medicare Physical (Renamed from Medicare annual wellness visit, subsequent) Start:02-Feb-2019 Instruction Type:Patient Education Patient Instructions Indication:Annual Medicare Physical (Renamed from Medicare annual wellness visit, subsequent) Start:02-Feb-2019 Instruction Type:Provider Instructions for Treatment How to access health informa tion online Indication:Current nonsmoker (Renamed from Current non-smoker) Start:01-Aug-2018 Instruction Type:Patient Education How to access health informa tion online - Detail Indication:Current nonsmoker (Renamed from Current non-smoker) Start:01-Aug-2018 Instruction Type:Patient Education Patient Instructions Indication:Current nonsmoker (Renamed from Current non-smoker) Start:01-Aug-2018 Instruction Type:Provider Instructions for Treatment How to access health informa tion online Indication:Osteoarthritis Start:04-Mar-2018 Instruction Type:Patient Education How to access health informa tion online - Detail Indication:Osteoarthritis Start:04-Mar-2018 Instruction Type:Patient Education Patient Instructions Indication:Osteoarthritis Start:04-Mar-2018 Instruction Type:Provider Instructions for Treatment How to access health informa tion online Indication:Anterior knee pain, left Start:18-Jan-2018 Instruction Type:Patient Education How to access health informa tion online - Detail Indication:Anterior knee pain, left Start:18-Jan-2018 Instruction Type:Patient Education Patient Instructions Indication:Anterior knee pain, left Start:18-Jan-2018 Instruction Type:Provider Instructions for Treatment How to access health informa tion online Indication:BMI 25.0-25.9,adult Start:13-Dec-2017 Instruction Type:Patient Education How to access health informa tion online - Detail Indication:BMI 25.0-25.9,adult Start:13-Dec-2017 Instruction Type:Patient Education Patient Instructions Indication:BMI 25.0-25.9,adult Start:13-Dec-2017 Instruction Type:Provider Instructions for Treatment How to access health informa tion online Indication:Anterior knee pain, left Start:02-Aug-2017 Instruction Type:Patient Education How to access health informa tion online - Detail Indication:Anterior knee pain, left Start:02-Aug-2017 Instruction Type:Patient Education Patient Instructions Indication:Anterior knee pain, left Start:02-Aug-2017 Instruction Type:Provider Instructions for Treatment How to access health informa tion online Indication:Dermatitis of eyelids of both eyes Start:18-Mar-2017 Instruction Type:Patient Education How to access health informa tion online - Detail Indication:Dermatitis of eyelids of both eyes Start:18-Mar-2017 Instruction Type:Patient Education Patient Instructions Indication:Dermatitis of eyelids of both eyes Start:18-Mar-2017 Instruction Type:Provider Instructions for Treatment How to access health informa tion online Indication:Current nonsmoker (Renamed from Current non-smoker) Start:12-Mar-2017 Instruction Type:Patient Education How to access health informa tion online - Detail Indication:Current nonsmoker (Renamed from Current non-smoker) Start:12-Mar-2017 Instruction Type:Patient Education Patient Instructions Indication:Current nonsmoker (Renamed from Current non-smoker) Start:12-Mar-2017 Instruction Type:Provider Instructions for Treatment How to access health informa tion online Indication:Benign neoplasm of skin Start:01-Mar-2017 Instruction Type:Patient Education How to access health informa tion online - Detail Indication:Benign neoplasm of skin Start:01-Mar-2017 Instruction Type:Patient Education Patient Instructions Indication:Benign neoplasm of skin Start:01-Mar-2017 Instruction Type:Provider Instructions for Treatment How to access health informa tion online Indication:BMI 25.0-25.9,adult Start:26-Jan-2017 Instruction Type:Patient Education How to access health informa tion online - Detail Indication:BMI 25.0-25.9,adult Start:26-Jan-2017 Instruction Type:Patient Education Patient Instructions Indication:BMI 25.0-25.9,adult Start:26-Jan-2017 Instruction Type:Provider Instructions for Treatment How to access health informa tion online Indication:Current nonsmoker (Renamed from Current non-smoker) Start:27-Aug-2016 Instruction Type:Patient Education How to access health informa tion online - Detail Indication:Current nonsmoker (Renamed from Current non-smoker) Start:27-Aug-2016 Instruction Type:Patient Education Patient Instructions Indication:Current nonsmoker (Renamed from Current non-smoker) Start:27-Aug-2016 Instruction Type:Provider Instructions for Treatment How to access health informa tion online Indication:Annual Medicare Physical (Renamed from Medicare annual wellness visit, subsequent) Start:12-Jun-2016 Instruction Type:Patient Education How to access health informa tion online - Detail Indication:Annual Medicare Physical (Renamed from Medicare annual wellness visit, subsequent) Start:12-Jun-2016 Instruction Type:Patient Education Patient Instructions Indication:Annual Medicare Physical (Renamed from Medicare annual wellness visit, subsequent) Start:12-Jun-2016 Instruction Type:Provider Instructions for Treatment How to access health informa tion online Indication:Acute ankle pain, left Start:14-Aug-2015 Instruction Type:Patient Education How to access health informa tion online - Detail Indication:Acute ankle pain, left Start:14-Aug-2015 Instruction Type:Patient Education Patient Instructions Indication:Acute ankle pain, left Start:14-Aug-2015 Instruction Type:Provider Instructions for Treatment How to access health informa tion online - Detail Indication:Heartburn Start:07-Jun-2015 Instruction Type:Patient Education How to access health informa tion online Indication:Heartburn Start:07-Jun-2015 Instruction Type:Patient Education Patient Instructions Indication:Heartburn Start:07-Jun-2015 Instruction Type:Provider Instructions for Treatment How to access health informa tion online - Detail Indication:Lumbago with sciatica Start:29-Mar-2015 Instruction Type:Patient Education Patient Instructions Indication:Lumbago with sciatica Start:29-Mar-2015 Instruction Type:Provider Instructions for Treatment Patient Instructions Indication:Myalgia Start:25-Jan-2015 Instruction Type:Provider Instructions for Treatment Patient Instructions Indication:Myalgia Start:10-Jan-2015 Instruction Type:Provider Instructions for Treatment Patient Instructions Indication:Dysuria Start:06-Jun-2014 Instruction Type:Provider Instructions for Treatment Patient Instructions Indication:Rash, drug Start:05-Jan-2014 Instruction Type:Provider Instructions for Treatment [facility] Work Phone: Instructions* Name Dates Details Patient Instructions Indication:BMI 24.0-24.9, adult Start:04-Mar-2023 Instruction Type:Provider Instructions for Treatment How to Access Health Informa tion Online using Patient Portal and [employer] Indication:BMI 24.0-24.9, adult Start:04-Mar-2023 Instruction Type:Patient Education Patient Instructions Indication:BMI 24.0-24.9, adult Start:18-Jan-2023 Instruction Type:Provider Instructions for Treatment How to Access Health Informa tion Online using Patient Portal and [employer] Indication:BMI 24.0-24.9, adult Start:18-Jan-2023 Instruction Type:Patient Education How to Access Health Informa tion Online using Patient Portal and [employer] Indication:Current nonsmoker (Renamed from Current non-smoker) Start:31-Dec-2022 Instruction Type:Patient Education Patient Instructions Indication:Current nonsmoker (Renamed from Current non-smoker) Start:31-Dec-2022 Instruction Type:Provider Instructions for Treatment Patient Instructions Indication:Need for prophylactic vaccination and inoculation against influenza (Renamed from Need for immunization against influenza) Start:30-Jun-2022 Instruction Type:Provider Instructions for Treatment How to Access Health Informa tion Online using Patient Portal and [employer] Indication:Need for prophylactic vaccination and inoculation against influenza (Renamed from Need for immunization against influenza) Start:30-Jun-2022 Instruction Type:Patient Education Patient Instructions Indication:Coronary artery disease Start:04-May-2022 Instruction Type:Provider Instructions for Treatment How to Access Health Informa tion Online using Patient Portal and [employer] Indication:Coronary artery disease Start:04-May-2022 Instruction Type:Patient Education Patient Instructions Indication:Current nonsmoker (Renamed from Current non-smoker) Start:25-Dec-2021 Instruction Type:Provider Instructions for Treatment How to Access Health Informa tion Online using Patient Portal and [employer] Indication:Current nonsmoker (Renamed from Current non-smoker) Start:25-Dec-2021 Instruction Type:Patient Education Patient Instructions Indication:Annual Medicare Physical (Renamed from Medicare annual wellness visit, subsequent) Start:17-Jun-2021 Instruction Type:Provider Instructions for Treatment How to Access Health Informa tion Online using Patient Portal and [employer] Indication:Annual Medicare Physical (Renamed from Medicare annual wellness visit, subsequent) Start:17-Jun-2021 Instruction Type:Patient Education Patient Instructions Indication:Right hip pain Start:09-May-2021 Instruction Type:Provider Instructions for Treatment How to Access Health Informa tion Online using Patient Portal and [employer] Indication:Right hip pain Start:09-May-2021 Instruction Type:Patient Education Patient Instructions Indication:Bilateral hip bursitis Start:02-Apr-2021 Instruction Type:Provider Instructions for Treatment How to Access Health Informa tion Online using Patient Portal and [employer] Indication:Bilateral hip bursitis Start:02-Apr-2021 Instruction Type:Patient Education Patient Instructions Indication:Right hip pain Start:14-Feb-2021 Instruction Type:Provider Instructions for Treatment How to Access Health Informa tion Online using Patient Portal and [employer] Indication:Right hip pain Start:14-Feb-2021 Instruction Type:Patient Education patient instruction Indication:BMI 23.0-23.9, adult Start:17-Jan-2021 Instruction Type:Provider Instructions for Treatment How to Access Health Informa tion Online using Patient Portal and [employer] Indication:BMI 23.0-23.9, adult Start:17-Jan-2021 Instruction Type:Patient Education How to access health informa tion online Indication:Current nonsmoker (Renamed from Current non-smoker) Start:28-Jun-2020 Instruction Type:Patient Education How to access health informa tion online - Detail Indication:Current nonsmoker (Renamed from Current non-smoker) Start:28-Jun-2020 Instruction Type:Patient Education Patient Instructions Indication:Current nonsmoker (Renamed from Current non-smoker) Start:28-Jun-2020 Instruction Type:Provider Instructions for Treatment How to access health informa tion online Indication:Abnormal fasting glucose Start:30-Jan-2020 Instruction Type:Patient Education How to access health informa tion online - Detail Indication:Abnormal fasting glucose Start:30-Jan-2020 Instruction Type:Patient Education Patient Instructions Indication:Abnormal fasting glucose Start:30-Jan-2020 Instruction Type:Provider Instructions for Treatment How to access health informa tion online Indication:Annual Medicare Physical (Renamed from Medicare annual wellness visit, subsequent) Start:31-Jul-2019 Instruction Type:Patient Education How to access health informa tion online - Detail Indication:Annual Medicare Physical (Renamed from Medicare annual wellness visit, subsequent) Start:31-Jul-2019 Instruction Type:Patient Education Patient Instructions Indication:Annual Medicare Physical (Renamed from Medicare annual wellness visit, subsequent) Start:31-Jul-2019 Instruction Type:Provider Instructions for Treatment How to access health informa tion online Indication:Annual Medicare Physical (Renamed from Medicare annual wellness visit, subsequent) Start:02-Feb-2019 Instruction Type:Patient Education How to access health informa tion online - Detail Indication:Annual Medicare Physical (Renamed from Medicare annual wellness visit, subsequent) Start:02-Feb-2019 Instruction Type:Patient Education Patient Instructions Indication:Annual Medicare Physical (Renamed from Medicare annual wellness visit, subsequent) Start:02-Feb-2019 Instruction Type:Provider Instructions for Treatment How to access health informa tion online Indication:Current nonsmoker (Renamed from Current non-smoker) Start:01-Aug-2018 Instruction Type:Patient Education How to access health informa tion online - Detail Indication:Current nonsmoker (Renamed from Current non-smoker) Start:01-Aug-2018 Instruction Type:Patient Education Patient Instructions Indication:Current nonsmoker (Renamed from Current non-smoker) Start:01-Aug-2018 Instruction Type:Provider Instructions for Treatment How to access health informa tion online Indication:Osteoarthritis Start:04-Mar-2018 Instruction Type:Patient Education How to access health informa tion online - Detail Indication:Osteoarthritis Start:04-Mar-2018 Instruction Type:Patient Education Patient Instructions Indication:Osteoarthritis Start:04-Mar-2018 Instruction Type:Provider Instructions for Treatment How to access health informa tion online Indication:Anterior knee pain, left Start:18-Jan-2018 Instruction Type:Patient Education How to access health informa tion online - Detail Indication:Anterior knee pain, left Start:18-Jan-2018 Instruction Type:Patient Education Patient Instructions Indication:Anterior knee pain, left Start:18-Jan-2018 Instruction Type:Provider Instructions for Treatment How to access health informa tion online Indication:BMI 25.0-25.9,adult Start:13-Dec-2017 Instruction Type:Patient Education How to access health informa tion online - Detail Indication:BMI 25.0-25.9,adult Start:13-Dec-2017 Instruction Type:Patient Education Patient Instructions Indication:BMI 25.0-25.9,adult Start:13-Dec-2017 Instruction Type:Provider Instructions for Treatment How to access health informa tion online Indication:Anterior knee pain, left Start:02-Aug-2017 Instruction Type:Patient Education How to access health informa tion online - Detail Indication:Anterior knee pain, left Start:02-Aug-2017 Instruction Type:Patient Education Patient Instructions Indication:Anterior knee pain, left Start:02-Aug-2017 Instruction Type:Provider Instructions for Treatment How to access health informa tion online Indication:Dermatitis of eyelids of both eyes Start:18-Mar-2017 Instruction Type:Patient Education How to access health informa tion online - Detail Indication:Dermatitis of eyelids of both eyes Start:18-Mar-2017 Instruction Type:Patient Education Patient Instructions Indication:Dermatitis of eyelids of both eyes Start:18-Mar-2017 Instruction Type:Provider Instructions for Treatment How to access health informa tion online Indication:Current nonsmoker (Renamed from Current non-smoker) Start:12-Mar-2017 Instruction Type:Patient Education How to access health informa tion online - Detail Indication:Current nonsmoker (Renamed from Current non-smoker) Start:12-Mar-2017 Instruction Type:Patient Education Patient Instructions Indication:Current nonsmoker (Renamed from Current non-smoker) Start:12-Mar-2017 Instruction Type:Provider Instructions for Treatment How to access health informa tion online Indication:Benign neoplasm of skin Start:01-Mar-2017 Instruction Type:Patient Education How to access health informa tion online - Detail Indication:Benign neoplasm of skin Start:01-Mar-2017 Instruction Type:Patient Education Patient Instructions Indication:Benign neoplasm of skin Start:01-Mar-2017 Instruction Type:Provider Instructions for Treatment How to access health informa tion online Indication:BMI 25.0-25.9,adult Start:26-Jan-2017 Instruction Type:Patient Education How to access health informa tion online - Detail Indication:BMI 25.0-25.9,adult Start:26-Jan-2017 Instruction Type:Patient Education Patient Instructions Indication:BMI 25.0-25.9,adult Start:26-Jan-2017 Instruction Type:Provider Instructions for Treatment How to access health informa tion online Indication:Current nonsmoker (Renamed from Current non-smoker) Start:27-Aug-2016 Instruction Type:Patient Education How to access health informa tion online - Detail Indication:Current nonsmoker (Renamed from Current non-smoker) Start:27-Aug-2016 Instruction Type:Patient Education Patient Instructions Indication:Current nonsmoker (Renamed from Current non-smoker) Start:27-Aug-2016 Instruction Type:Provider Instructions for Treatment How to access health informa tion online Indication:Annual Medicare Physical (Renamed from Medicare annual wellness visit, subsequent) Start:12-Jun-2016 Instruction Type:Patient Education How to access health informa tion online - Detail Indication:Annual Medicare Physical (Renamed from Medicare annual wellness visit, subsequent) Start:12-Jun-2016 Instruction Type:Patient Education Patient Instructions Indication:Annual Medicare Physical (Renamed from Medicare annual wellness visit, subsequent) Start:12-Jun-2016 Instruction Type:Provider Instructions for Treatment How to access health informa tion online Indication:Acute ankle pain, left Start:14-Aug-2015 Instruction Type:Patient Education How to access health informa tion online - Detail Indication:Acute ankle pain, left Start:14-Aug-2015 Instruction Type:Patient Education Patient Instructions Indication:Acute ankle pain, left Start:14-Aug-2015 Instruction Type:Provider Instructions for Treatment How to access health informa tion online - Detail Indication:Heartburn Start:07-Jun-2015 Instruction Type:Patient Education How to access health informa tion online Indication:Heartburn Start:07-Jun-2015 Instruction Type:Patient Education Patient Instructions Indication:Heartburn Start:07-Jun-2015 Instruction Type:Provider Instructions for Treatment How to access health informa tion online - Detail Indication:Lumbago with sciatica Start:29-Mar-2015 Instruction Type:Patient Education Patient Instructions Indication:Lumbago with sciatica Start:29-Mar-2015 Instruction Type:Provider Instructions for Treatment Patient Instructions Indication:Myalgia Start:25-Jan-2015 Instruction Type:Provider Instructions for Treatment Patient Instructions Indication:Myalgia Start:10-Jan-2015 Instruction Type:Provider Instructions for Treatment Patient Instructions Indication:Dysuria Start:06-Jun-2014 Instruction Type:Provider Instructions for Treatment Patient Instructions Indication:Rash, drug Start:05-Jan-2014 Instruction Type:Provider Instructions for Treatment [facility] Work Phone: Instructions* Name Dates Details Patient Instructions Indication:BMI 24.0-24.9, adult Start:04-Mar-2023 Instruction Type:Provider Instructions for Treatment How to Access Health Informa tion Online using Patient Portal and [employer] Apps Indication:BMI 24.0-24.9, adult Start:04-Mar-2023 Instruction Type:Patient Education Patient Instructions Indication:BMI 24.0-24.9, adult Start:18-Jan-2023 Instruction Type:Provider Instructions for Treatment How to Access Health Informa tion Online using Patient Portal and [employer] Apps Indication:BMI 24.0-24.9, adult Start:18-Jan-2023 Instruction Type:Patient Education How to Access Health Informa tion Online using Patient Portal and [employer] Apps Indication:Current nonsmoker (Renamed from Current non-smoker) Start:31-Dec-2022 Instruction Type:Patient Education Patient Instructions Indication:Current nonsmoker (Renamed from Current non-smoker) Start:31-Dec-2022 Instruction Type:Provider Instructions for Treatment Patient Instructions Indication:Need for prophylactic vaccination and inoculation against influenza (Renamed from Need for immunization against influenza) Start:30-Jun-2022 Instruction Type:Provider Instructions for Treatment How to Access Health Informa tion Online using Patient Portal and [employer] Apps Indication:Need for prophylactic vaccination and inoculation against influenza (Renamed from Need for immunization against influenza) Start:30-Jun-2022 Instruction Type:Patient Education Patient Instructions Indication:Coronary artery disease Start:04-May-2022 Instruction Type:Provider Instructions for Treatment How to Access Health Informa tion Online using Patient Portal and [employer] Apps Indication:Coronary artery disease Start:04-May-2022 Instruction Type:Patient Education Patient Instructions Indication:Current nonsmoker (Renamed from Current non-smoker) Start:25-Dec-2021 Instruction Type:Provider Instructions for Treatment How to Access Health Informa tion Online using Patient Portal and [employer] Apps Indication:Current nonsmoker (Renamed from Current non-smoker) Start:25-Dec-2021 Instruction Type:Patient Education Patient Instructions Indication:Annual Medicare Physical (Renamed from Medicare annual wellness visit, subsequent) Start:17-Jun-2021 Instruction Type:Provider Instructions for Treatment How to Access Health Informa tion Online using Patient Portal and [employer] Apps Indication:Annual Medicare Physical (Renamed from Medicare annual wellness visit, subsequent) Start:17-Jun-2021 Instruction Type:Patient Education Patient Instructions Indication:Right hip pain Start:09-May-2021 Instruction Type:Provider Instructions for Treatment How to Access Health Informa tion Online using Patient Portal and [employer] Apps Indication:Right hip pain Start:09-May-2021 Instruction Type:Patient Education Patient Instructions Indication:Bilateral hip bursitis Start:02-Apr-2021 Instruction Type:Provider Instructions for Treatment How to Access Health Informa tion Online using Patient Portal and [employer] Apps Indication:Bilateral hip bursitis Start:02-Apr-2021 Instruction Type:Patient Education Patient Instructions Indication:Right hip pain Start:14-Feb-2021 Instruction Type:Provider Instructions for Treatment How to Access Health Informa tion Online using Patient Portal and [employer] Apps Indication:Right hip pain Start:14-Feb-2021 Instruction Type:Patient Education patient instruction Indication:BMI 23.0-23.9, adult Start:17-Jan-2021 Instruction Type:Provider Instructions for Treatment How to Access Health Informa tion Online using Patient Portal and [employer] Apps Indication:BMI 23.0-23.9, adult Start:17-Jan-2021 Instruction Type:Patient Education How to access health informa tion online Indication:Current nonsmoker (Renamed from Current non-smoker) Start:28-Jun-2020 Instruction Type:Patient Education How to access health informa tion online - Detail Indication:Current nonsmoker (Renamed from Current non-smoker) Start:28-Jun-2020 Instruction Type:Patient Education Patient Instructions Indication:Current nonsmoker (Renamed from Current non-smoker) Start:28-Jun-2020 Instruction Type:Provider Instructions for Treatment How to access health informa tion online Indication:Abnormal fasting glucose Start:30-Jan-2020 Instruction Type:Patient Education How to access health informa tion online - Detail Indication:Abnormal fasting glucose Start:30-Jan-2020 Instruction Type:Patient Education Patient Instructions Indication:Abnormal fasting glucose Start:30-Jan-2020 Instruction Type:Provider Instructions for Treatment How to access health informa tion online Indication:Annual Medicare Physical (Renamed from Medicare annual wellness visit, subsequent) Start:31-Jul-2019 Instruction Type:Patient Education How to access health informa tion online - Detail Indication:Annual Medicare Physical (Renamed from Medicare annual wellness visit, subsequent) Start:31-Jul-2019 Instruction Type:Patient Education Patient Instructions Indication:Annual Medicare Physical (Renamed from Medicare annual wellness visit, subsequent) Start:31-Jul-2019 Instruction Type:Provider Instructions for Treatment How to access health informa tion online Indication:Annual Medicare Physical (Renamed from Medicare annual wellness visit, subsequent) Start:02-Feb-2019 Instruction Type:Patient Education How to access health informa tion online - Detail Indication:Annual Medicare Physical (Renamed from Medicare annual wellness visit, subsequent) Start:02-Feb-2019 Instruction Type:Patient Education Patient Instructions Indication:Annual Medicare Physical (Renamed from Medicare annual wellness visit, subsequent) Start:02-Feb-2019 Instruction Type:Provider Instructions for Treatment How to access health informa tion online Indication:Current nonsmoker (Renamed from Current non-smoker) Start:01-Aug-2018 Instruction Type:Patient Education How to access health informa tion online - Detail Indication:Current nonsmoker (Renamed from Current non-smoker) Start:01-Aug-2018 Instruction Type:Patient Education Patient Instructions Indication:Current nonsmoker (Renamed from Current non-smoker) Start:01-Aug-2018 Instruction Type:Provider Instructions for Treatment How to access health informa tion online Indication:Osteoarthritis Start:04-Mar-2018 Instruction Type:Patient Education How to access health informa tion online - Detail Indication:Osteoarthritis Start:04-Mar-2018 Instruction Type:Patient Education Patient Instructions Indication:Osteoarthritis Start:04-Mar-2018 Instruction Type:Provider Instructions for Treatment How to access health informa tion online Indication:Anterior knee pain, left Start:18-Jan-2018 Instruction Type:Patient Education How to access health informa tion online - Detail Indication:Anterior knee pain, left Start:18-Jan-2018 Instruction Type:Patient Education Patient Instructions Indication:Anterior knee pain, left Start:18-Jan-2018 Instruction Type:Provider Instructions for Treatment How to access health informa tion online Indication:BMI 25.0-25.9,adult Start:13-Dec-2017 Instruction Type:Patient Education How to access health informa tion online - Detail Indication:BMI 25.0-25.9,adult Start:13-Dec-2017 Instruction Type:Patient Education Patient Instructions Indication:BMI 25.0-25.9,adult Start:13-Dec-2017 Instruction Type:Provider Instructions for Treatment How to access health informa tion online Indication:Anterior knee pain, left Start:02-Aug-2017 Instruction Type:Patient Education How to access health informa tion online - Detail Indication:Anterior knee pain, left Start:02-Aug-2017 Instruction Type:Patient Education Patient Instructions Indication:Anterior knee pain, left Start:02-Aug-2017 Instruction Type:Provider Instructions for Treatment How to access health informa tion online Indication:Dermatitis of eyelids of both eyes Start:18-Mar-2017 Instruction Type:Patient Education How to access health informa tion online - Detail Indication:Dermatitis of eyelids of both eyes Start:18-Mar-2017 Instruction Type:Patient Education Patient Instructions Indication:Dermatitis of eyelids of both eyes Start:18-Mar-2017 Instruction Type:Provider Instructions for Treatment How to access health informa tion online Indication:Current nonsmoker (Renamed from Current non-smoker) Start:12-Mar-2017 Instruction Type:Patient Education How to access health informa tion online - Detail Indication:Current nonsmoker (Renamed from Current non-smoker) Start:12-Mar-2017 Instruction Type:Patient Education Patient Instructions Indication:Current nonsmoker (Renamed from Current non-smoker) Start:12-Mar-2017 Instruction Type:Provider Instructions for Treatment How to access health informa tion online Indication:Benign neoplasm of skin Start:01-Mar-2017 Instruction Type:Patient Education How to access health informa tion online - Detail Indication:Benign neoplasm of skin Start:01-Mar-2017 Instruction Type:Patient Education Patient Instructions Indication:Benign neoplasm of skin Start:01-Mar-2017 Instruction Type:Provider Instructions for Treatment How to access health informa tion online Indication:BMI 25.0-25.9,adult Start:26-Jan-2017 Instruction Type:Patient Education How to access health informa tion online - Detail Indication:BMI 25.0-25.9,adult Start:26-Jan-2017 Instruction Type:Patient Education Patient Instructions Indication:BMI 25.0-25.9,adult Start:26-Jan-2017 Instruction Type:Provider Instructions for Treatment How to access health informa tion online Indication:Current nonsmoker (Renamed from Current non-smoker) Start:27-Aug-2016 Instruction Type:Patient Education How to access health informa tion online - Detail Indication:Current nonsmoker (Renamed from Current non-smoker) Start:27-Aug-2016 Instruction Type:Patient Education Patient Instructions Indication:Current nonsmoker (Renamed from Current non-smoker) Start:27-Aug-2016 Instruction Type:Provider Instructions for Treatment How to access health informa tion online Indication:Annual Medicare Physical (Renamed from Medicare annual wellness visit, subsequent) Start:12-Jun-2016 Instruction Type:Patient Education How to access health informa tion online - Detail Indication:Annual Medicare Physical (Renamed from Medicare annual wellness visit, subsequent) Start:12-Jun-2016 Instruction Type:Patient Education Patient Instructions Indication:Annual Medicare Physical (Renamed from Medicare annual wellness visit, subsequent) Start:12-Jun-2016 Instruction Type:Provider Instructions for Treatment How to access health informa tion online Indication:Acute ankle pain, left Start:14-Aug-2015 Instruction Type:Patient Education How to access health informa tion online - Detail Indication:Acute ankle pain, left Start:14-Aug-2015 Instruction Type:Patient Education Patient Instructions Indication:Acute ankle pain, left Start:14-Aug-2015 Instruction Type:Provider Instructions for Treatment How to access health informa tion online - Detail Indication:Heartburn Start:07-Jun-2015 Instruction Type:Patient Education How to access health informa tion online Indication:Heartburn Start:07-Jun-2015 Instruction Type:Patient Education Patient Instructions Indication:Heartburn Start:07-Jun-2015 Instruction Type:Provider Instructions for Treatment How to access health informa tion online - Detail Indication:Lumbago with sciatica Start:29-Mar-2015 Instruction Type:Patient Education Patient Instructions Indication:Lumbago with sciatica Start:29-Mar-2015 Instruction Type:Provider Instructions for Treatment Patient Instructions Indication:Myalgia Start:25-Jan-2015 Instruction Type:Provider Instructions for Treatment Patient Instructions Indication:Myalgia Start:10-Jan-2015 Instruction Type:Provider Instructions for Treatment Patient Instructions Indication:Dysuria Start:06-Jun-2014 Instruction Type:Provider Instructions for Treatment Patient Instructions Indication:Rash, drug Start:05-Jan-2014 Instruction Type:Provider Instructions for Treatment [facility]; [facility] Work Phone: Instructions* Name Dates Details Patient Instructions Indication:BMI 24.0-24.9, adult Start:05-Jul-2023 Instruction Type:Provider Instructions for Treatment How to Access Health Informa tion Online using Patient Portal and [employer] Apps Indication:BMI 24.0-24.9, adult Start:05-Jul-2023 Instruction Type:Patient Education Patient Instructions Indication:BMI 24.0-24.9, adult Start:04-Mar-2023 Instruction Type:Provider Instructions for Treatment How to Access Health Informa tion Online using Patient Portal and [employer] Apps Indication:BMI 24.0-24.9, adult Start:04-Mar-2023 Instruction Type:Patient Education Patient Instructions Indication:BMI 24.0-24.9, adult Start:18-Jan-2023 Instruction Type:Provider Instructions for Treatment How to Access Health Informa tion Online using Patient Portal and [employer] Apps Indication:BMI 24.0-24.9, adult Start:18-Jan-2023 Instruction Type:Patient Education How to Access Health Informa tion Online using Patient Portal and [employer] Apps Indication:Current nonsmoker (Renamed from Current non-smoker) Start:31-Dec-2022 Instruction Type:Patient Education Patient Instructions Indication:Current nonsmoker (Renamed from Current non-smoker) Start:31-Dec-2022 Instruction Type:Provider Instructions for Treatment Patient Instructions Indication:Need for prophylactic vaccination and inoculation against influenza (Renamed from Need for immunization against influenza) Start:30-Jun-2022 Instruction Type:Provider Instructions for Treatment How to Access Health Informa tion Online using Patient Portal and [employer] Apps Indication:Need for prophylactic vaccination and inoculation against influenza (Renamed from Need for immunization against influenza) Start:30-Jun-2022 Instruction Type:Patient Education Patient Instructions Indication:Coronary artery disease Start:04-May-2022 Instruction Type:Provider Instructions for Treatment How to Access Health Informa tion Online using Patient Portal and [employer] Apps Indication:Coronary artery disease Start:04-May-2022 Instruction Type:Patient Education Patient Instructions Indication:Current nonsmoker (Renamed from Current non-smoker) Start:25-Dec-2021 Instruction Type:Provider Instructions for Treatment How to Access Health Informa tion Online using Patient Portal and [employer] Apps Indication:Current nonsmoker (Renamed from Current non-smoker) Start:25-Dec-2021 Instruction Type:Patient Education Patient Instructions Indication:Annual Medicare Physical (Renamed from Medicare annual wellness visit, subsequent) Start:17-Jun-2021 Instruction Type:Provider Instructions for Treatment How to Access Health Informa tion Online using Patient Portal and [employer] Apps Indication:Annual Medicare Physical (Renamed from Medicare annual wellness visit, subsequent) Start:17-Jun-2021 Instruction Type:Patient Education Patient Instructions Indication:Right hip pain Start:09-May-2021 Instruction Type:Provider Instructions for Treatment How to Access Health Informa tion Online using Patient Portal and [employer] Apps Indication:Right hip pain Start:09-May-2021 Instruction Type:Patient Education Patient Instructions Indication:Bilateral hip bursitis Start:02-Apr-2021 Instruction Type:Provider Instructions for Treatment How to Access Health Informa tion Online using Patient Portal and [employer] Apps Indication:Bilateral hip bursitis Start:02-Apr-2021 Instruction Type:Patient Education Patient Instructions Indication:Right hip pain Start:14-Feb-2021 Instruction Type:Provider Instructions for Treatment How to Access Health Informa tion Online using Patient Portal and [employer] Apps Indication:Right hip pain Start:14-Feb-2021 Instruction Type:Patient Education patient instruction Indication:BMI 23.0-23.9, adult Start:17-Jan-2021 Instruction Type:Provider Instructions for Treatment How to Access Health Informa tion Online using Patient Portal and [employer] Apps Indication:BMI 23.0-23.9, adult Start:17-Jan-2021 Instruction Type:Patient Education How to access health informa tion online Indication:Current nonsmoker (Renamed from Current non-smoker) Start:28-Jun-2020 Instruction Type:Patient Education How to access health informa tion online - Detail Indication:Current nonsmoker (Renamed from Current non-smoker) Start:28-Jun-2020 Instruction Type:Patient Education Patient Instructions Indication:Current nonsmoker (Renamed from Current non-smoker) Start:28-Jun-2020 Instruction Type:Provider Instructions for Treatment How to access health informa tion online Indication:Abnormal fasting glucose Start:30-Jan-2020 Instruction Type:Patient Education How to access health informa tion online - Detail Indication:Abnormal fasting glucose Start:30-Jan-2020 Instruction Type:Patient Education Patient Instructions Indication:Abnormal fasting glucose Start:30-Jan-2020 Instruction Type:Provider Instructions for Treatment How to access health informa tion online Indication:Annual Medicare Physical (Renamed from Medicare annual wellness visit, subsequent) Start:31-Jul-2019 Instruction Type:Patient Education How to access health informa tion online - Detail Indication:Annual Medicare Physical (Renamed from Medicare annual wellness visit, subsequent) Start:31-Jul-2019 Instruction Type:Patient Education Patient Instructions Indication:Annual Medicare Physical (Renamed from Medicare annual wellness visit, subsequent) Start:31-Jul-2019 Instruction Type:Provider Instructions for Treatment How to access health informa tion online Indication:Annual Medicare Physical (Renamed from Medicare annual wellness visit, subsequent) Start:02-Feb-2019 Instruction Type:Patient Education How to access health informa tion online - Detail Indication:Annual Medicare Physical (Renamed from Medicare annual wellness visit, subsequent) Start:02-Feb-2019 Instruction Type:Patient Education Patient Instructions Indication:Annual Medicare Physical (Renamed from Medicare annual wellness visit, subsequent) Start:02-Feb-2019 Instruction Type:Provider Instructions for Treatment How to access health informa tion online Indication:Current nonsmoker (Renamed from Current non-smoker) Start:01-Aug-2018 Instruction Type:Patient Education How to access health informa tion online - Detail Indication:Current nonsmoker (Renamed from Current non-smoker) Start:01-Aug-2018 Instruction Type:Patient Education Patient Instructions Indication:Current nonsmoker (Renamed from Current non-smoker) Start:01-Aug-2018 Instruction Type:Provider Instructions for Treatment How to access health informa tion online Indication:Osteoarthritis Start:04-Mar-2018 Instruction Type:Patient Education How to access health informa tion online - Detail Indication:Osteoarthritis Start:04-Mar-2018 Instruction Type:Patient Education Patient Instructions Indication:Osteoarthritis Start:04-Mar-2018 Instruction Type:Provider Instructions for Treatment How to access health informa tion online Indication:Anterior knee pain, left Start:18-Jan-2018 Instruction Type:Patient Education How to access health informa tion online - Detail Indication:Anterior knee pain, left Start:18-Jan-2018 Instruction Type:Patient Education Patient Instructions Indication:Anterior knee pain, left Start:18-Jan-2018 Instruction Type:Provider Instructions for Treatment How to access health informa tion online Indication:BMI 25.0-25.9,adult Start:13-Dec-2017 Instruction Type:Patient Education How to access health informa tion online - Detail Indication:BMI 25.0-25.9,adult Start:13-Dec-2017 Instruction Type:Patient Education Patient Instructions Indication:BMI 25.0-25.9,adult Start:13-Dec-2017 Instruction Type:Provider Instructions for Treatment How to access health informa tion online Indication:Anterior knee pain, left Start:02-Aug-2017 Instruction Type:Patient Education How to access health informa tion online - Detail Indication:Anterior knee pain, left Start:02-Aug-2017 Instruction Type:Patient Education Patient Instructions Indication:Anterior knee pain, left Start:02-Aug-2017 Instruction Type:Provider Instructions for Treatment How to access health informa tion online Indication:Dermatitis of eyelids of both eyes Start:18-Mar-2017 Instruction Type:Patient Education How to access health informa tion online - Detail Indication:Dermatitis of eyelids of both eyes Start:18-Mar-2017 Instruction Type:Patient Education Patient Instructions Indication:Dermatitis of eyelids of both eyes Start:18-Mar-2017 Instruction Type:Provider Instructions for Treatment How to access health informa tion online Indication:Current nonsmoker (Renamed from Current non-smoker) Start:12-Mar-2017 Instruction Type:Patient Education How to access health informa tion online - Detail Indication:Current nonsmoker (Renamed from Current non-smoker) Start:12-Mar-2017 Instruction Type:Patient Education Patient Instructions Indication:Current nonsmoker (Renamed from Current non-smoker) Start:12-Mar-2017 Instruction Type:Provider Instructions for Treatment How to access health informa tion online Indication:Benign neoplasm of skin Start:01-Mar-2017 Instruction Type:Patient Education How to access health informa tion online - Detail Indication:Benign neoplasm of skin Start:01-Mar-2017 Instruction Type:Patient Education Patient Instructions Indication:Benign neoplasm of skin Start:01-Mar-2017 Instruction Type:Provider Instructions for Treatment How to access health informa tion online Indication:BMI 25.0-25.9,adult Start:26-Jan-2017 Instruction Type:Patient Education How to access health informa tion online - Detail Indication:BMI 25.0-25.9,adult Start:26-Jan-2017 Instruction Type:Patient Education Patient Instructions Indication:BMI 25.0-25.9,adult Start:26-Jan-2017 Instruction Type:Provider Instructions for Treatment How to access health informa tion online Indication:Current nonsmoker (Renamed from Current non-smoker) Start:27-Aug-2016 Instruction Type:Patient Education How to access health informa tion online - Detail Indication:Current nonsmoker (Renamed from Current non-smoker) Start:27-Aug-2016 Instruction Type:Patient Education Patient Instructions Indication:Current nonsmoker (Renamed from Current non-smoker) Start:27-Aug-2016 Instruction Type:Provider Instructions for Treatment How to access health informa tion online Indication:Annual Medicare Physical (Renamed from Medicare annual wellness visit, subsequent) Start:12-Jun-2016 Instruction Type:Patient Education How to access health informa tion online - Detail Indication:Annual Medicare Physical (Renamed from Medicare annual wellness visit, subsequent) Start:12-Jun-2016 Instruction Type:Patient Education Patient Instructions Indication:Annual Medicare Physical (Renamed from Medicare annual wellness visit, subsequent) Start:12-Jun-2016 Instruction Type:Provider Instructions for Treatment How to access health informa tion online Indication:Acute ankle pain, left Start:14-Aug-2015 Instruction Type:Patient Education How to access health informa tion online - Detail Indication:Acute ankle pain, left Start:14-Aug-2015 Instruction Type:Patient Education Patient Instructions Indication:Acute ankle pain, left Start:14-Aug-2015 Instruction Type:Provider Instructions for Treatment How to access health informa tion online - Detail Indication:Heartburn Start:07-Jun-2015 Instruction Type:Patient Education How to access health informa tion online Indication:Heartburn Start:07-Jun-2015 Instruction Type:Patient Education Patient Instructions Indication:Heartburn Start:07-Jun-2015 Instruction Type:Provider Instructions for Treatment How to access health informa tion online - Detail Indication:Lumbago with sciatica Start:29-Mar-2015 Instruction Type:Patient Education Patient Instructions Indication:Lumbago with sciatica Start:29-Mar-2015 Instruction Type:Provider Instructions for Treatment Patient Instructions Indication:Myalgia Start:25-Jan-2015 Instruction Type:Provider Instructions for Treatment Patient Instructions Indication:Myalgia Start:10-Jan-2015 Instruction Type:Provider Instructions for Treatment Patient Instructions Indication:Dysuria Start:06-Jun-2014 Instruction Type:Provider Instructions for Treatment Patient Instructions Indication:Rash, drug Start:05-Jan-2014 Instruction Type:Provider Instructions for Treatment [facility] Work Phone: Instructions* Name Dates Details Patient Instructions Indication:BMI 24.0-24.9, adult Start:05-Jul-2023 Instruction Type:Provider Instructions for Treatment How to Access Health Informa tion Online using Patient Portal and 3rd [employer] Apps Indication:BMI 24.0-24.9, adult Start:05-Jul-2023 Instruction Type:Patient Education Patient Instructions Indication:BMI 24.0-24.9, adult Start:04-Mar-2023 Instruction Type:Provider Instructions for Treatment How to Access Health Informa tion Online using Patient Portal and 3rd [employer] Apps Indication:BMI 24.0-24.9, adult Start:04-Mar-2023 Instruction Type:Patient Education Patient Instructions Indication:BMI 24.0-24.9, adult Start:18-Jan-2023 Instruction Type:Provider Instructions for Treatment How to Access Health Informa tion Online using Patient Portal and 3rd [employer] Apps Indication:BMI 24.0-24.9, adult Start:18-Jan-2023 Instruction Type:Patient Education How to Access Health Informa tion Online using Patient Portal and [employer] Apps Indication:Current nonsmoker (Renamed from Current non-smoker) Start:31-Dec-2022 Instruction Type:Patient Education Patient Instructions Indication:Current nonsmoker (Renamed from Current non-smoker) Start:31-Dec-2022 Instruction Type:Provider Instructions for Treatment Patient Instructions Indication:Need for prophylactic vaccination and inoculation against influenza (Renamed from Need for immunization against influenza) Start:30-Jun-2022 Instruction Type:Provider Instructions for Treatment How to Access Health Informa tion Online using Patient Portal and [employer] Apps Indication:Need for prophylactic vaccination and inoculation against influenza (Renamed from Need for immunization against influenza) Start:30-Jun-2022 Instruction Type:Patient Education Patient Instructions Indication:Coronary artery disease Start:04-May-2022 Instruction Type:Provider Instructions for Treatment How to Access Health Informa tion Online using Patient Portal and 3rd [employer] Apps Indication:Coronary artery disease Start:04-May-2022 Instruction Type:Patient Education Patient Instructions Indication:Current nonsmoker (Renamed from Current non-smoker) Start:25-Dec-2021 Instruction Type:Provider Instructions for Treatment How to Access Health Informa tion Online using Patient Portal and 3rd [employer] Apps Indication:Current nonsmoker (Renamed from Current non-smoker) Start:21-Apr-2022 Instruction Type:Patient Education Patient Instructions Indication:Annual Medicare Physical (Renamed from Medicare annual wellness visit, subsequent) Start:17-Jun-2021 Instruction Type:Provider Instructions for Treatment How to Access Health Informa tion Online using Patient Portal and [employer] Apps Indication:Annual Medicare Physical (Renamed from Medicare annual wellness visit, subsequent) Start:17-Jun-2021 Instruction Type:Patient Education Patient Instructions Indication:Right hip pain Start:09-May-2021 Instruction Type:Provider Instructions for Treatment How to Access Health Informa tion Online using Patient Portal and [employer] Apps Indication:Right hip pain Start:09-May-2021 Instruction Type:Patient Education Patient Instructions Indication:Bilateral hip bursitis Start:02-Apr-2021 Instruction Type:Provider Instructions for Treatment How to Access Health Informa tion Online using Patient Portal and [employer] Apps Indication:Bilateral hip bursitis Start:02-Apr-2021 Instruction Type:Patient Education Patient Instructions Indication:Right hip pain Start:14-Feb-2021 Instruction Type:Provider Instructions for Treatment How to Access Health Informa tion Online using Patient Portal and [employer] Apps Indication:Right hip pain Start:14-Feb-2021 Instruction Type:Patient Education patient instruction Indication:BMI 23.0-23.9, adult Start:17-Jan-2021 Instruction Type:Provider Instructions for Treatment How to Access Health Informa tion Online using Patient Portal and [employer] Apps Indication:BMI 23.0-23.9, adult Start:17-Jan-2021 Instruction Type:Patient Education How to access health informa tion online Indication:Current nonsmoker (Renamed from Current non-smoker) Start:28-Jun-2020 Instruction Type:Patient Education How to access health informa tion online - Detail Indication:Current nonsmoker (Renamed from Current non-smoker) Start:28-Jun-2020 Instruction Type:Patient Education Patient Instructions Indication:Current nonsmoker (Renamed from Current non-smoker) Start:28-Jun-2020 Instruction Type:Provider Instructions for Treatment How to access health informa tion online Indication:Abnormal fasting glucose Start:30-Jan-2020 Instruction Type:Patient Education How to access health informa tion online - Detail Indication:Abnormal fasting glucose Start:30-Jan-2020 Instruction Type:Patient Education Patient Instructions Indication:Abnormal fasting glucose Start:30-Jan-2020 Instruction Type:Provider Instructions for Treatment How to access health informa tion online Indication:Annual Medicare Physical (Renamed from Medicare annual wellness visit, subsequent) Start:31-Jul-2019 Instruction Type:Patient Education How to access health informa tion online - Detail Indication:Annual Medicare Physical (Renamed from Medicare annual wellness visit, subsequent) Start:31-Jul-2019 Instruction Type:Patient Education Patient Instructions Indication:Annual Medicare Physical (Renamed from Medicare annual wellness visit, subsequent) Start:31-Jul-2019 Instruction Type:Provider Instructions for Treatment How to access health informa tion online Indication:Annual Medicare Physical (Renamed from Medicare annual wellness visit, subsequent) Start:02-Feb-2019 Instruction Type:Patient Education How to access health informa tion online - Detail Indication:Annual Medicare Physical (Renamed from Medicare annual wellness visit, subsequent) Start:02-Feb-2019 Instruction Type:Patient Education Patient Instructions Indication:Annual Medicare Physical (Renamed from Medicare annual wellness visit, subsequent) Start:02-Feb-2019 Instruction Type:Provider Instructions for Treatment How to access health informa tion online Indication:Current nonsmoker (Renamed from Current non-smoker) Start:01-Aug-2018 Instruction Type:Patient Education How to access health informa tion online - Detail Indication:Current nonsmoker (Renamed from Current non-smoker) Start:01-Aug-2018 Instruction Type:Patient Education Patient Instructions Indication:Current nonsmoker (Renamed from Current non-smoker) Start:01-Aug-2018 Instruction Type:Provider Instructions for Treatment How to access health informa tion online Indication:Osteoarthritis Start:04-Mar-2018 Instruction Type:Patient Education How to access health informa tion online - Detail Indication:Osteoarthritis Start:04-Mar-2018 Instruction Type:Patient Education Patient Instructions Indication:Osteoarthritis Start:04-Mar-2018 Instruction Type:Provider Instructions for Treatment How to access health informa tion online Indication:Anterior knee pain, left Start:18-Jan-2018 Instruction Type:Patient Education How to access health informa tion online - Detail Indication:Anterior knee pain, left Start:18-Jan-2018 Instruction Type:Patient Education Patient Instructions Indication:Anterior knee pain, left Start:18-Jan-2018 Instruction Type:Provider Instructions for Treatment How to access health informa tion online Indication:BMI 25.0-25.9,adult Start:13-Dec-2017 Instruction Type:Patient Education How to access health informa tion online - Detail Indication:BMI 25.0-25.9,adult Start:13-Dec-2017 Instruction Type:Patient Education Patient Instructions Indication:BMI 25.0-25.9,adult Start:13-Dec-2017 Instruction Type:Provider Instructions for Treatment How to access health informa tion online Indication:Anterior knee pain, left Start:02-Aug-2017 Instruction Type:Patient Education How to access health informa tion online - Detail Indication:Anterior knee pain, left Start:02-Aug-2017 Instruction Type:Patient Education Patient Instructions Indication:Anterior knee pain, left Start:02-Aug-2017 Instruction Type:Provider Instructions for Treatment How to access health informa tion online Indication:Dermatitis of eyelids of both eyes Start:18-Mar-2017 Instruction Type:Patient Education How to access health informa tion online - Detail Indication:Dermatitis of eyelids of both eyes Start:18-Mar-2017 Instruction Type:Patient Education Patient Instructions Indication:Dermatitis of eyelids of both eyes Start:18-Mar-2017 Instruction Type:Provider Instructions for Treatment How to access health informa tion online Indication:Current nonsmoker (Renamed from Current non-smoker) Start:12-Mar-2017 Instruction Type:Patient Education How to access health informa tion online - Detail Indication:Current nonsmoker (Renamed from Current non-smoker) Start:12-Mar-2017 Instruction Type:Patient Education Patient Instructions Indication:Current nonsmoker (Renamed from Current non-smoker) Start:12-Mar-2017 Instruction Type:Provider Instructions for Treatment How to access health informa tion online Indication:Benign neoplasm of skin Start:01-Mar-2017 Instruction Type:Patient Education How to access health informa tion online - Detail Indication:Benign neoplasm of skin Start:01-Mar-2017 Instruction Type:Patient Education Patient Instructions Indication:Benign neoplasm of skin Start:01-Mar-2017 Instruction Type:Provider Instructions for Treatment How to access health informa tion online Indication:BMI 25.0-25.9,adult Start:26-Jan-2017 Instruction Type:Patient Education How to access health informa tion online - Detail Indication:BMI 25.0-25.9,adult Start:26-Jan-2017 Instruction Type:Patient Education Patient Instructions Indication:BMI 25.0-25.9,adult Start:26-Jan-2017 Instruction Type:Provider Instructions for Treatment How to access health informa tion online Indication:Current nonsmoker (Renamed from Current non-smoker) Start:27-Aug-2016 Instruction Type:Patient Education How to access health informa tion online - Detail Indication:Current nonsmoker (Renamed from Current non-smoker) Start:27-Aug-2016 Instruction Type:Patient Education Patient Instructions Indication:Current nonsmoker (Renamed from Current non-smoker) Start:27-Aug-2016 Instruction Type:Provider Instructions for Treatment How to access health informa tion online Indication:Annual Medicare Physical (Renamed from Medicare annual wellness visit, subsequent) Start:12-Jun-2016 Instruction Type:Patient Education How to access health informa tion online - Detail Indication:Annual Medicare Physical (Renamed from Medicare annual wellness visit, subsequent) Start:12-Jun-2016 Instruction Type:Patient Education Patient Instructions Indication:Annual Medicare Physical (Renamed from Medicare annual wellness visit, subsequent) Start:12-Jun-2016 Instruction Type:Provider Instructions for Treatment How to access health informa tion online Indication:Acute ankle pain, left Start:14-Aug-2015 Instruction Type:Patient Education How to access health informa tion online - Detail Indication:Acute ankle pain, left Start:14-Aug-2015 Instruction Type:Patient Education Patient Instructions Indication:Acute ankle pain, left Start:14-Aug-2015 Instruction Type:Provider Instructions for Treatment How to access health informa tion online - Detail Indication:Heartburn Start:07-Jun-2015 Instruction Type:Patient Education How to access health informa tion online Indication:Heartburn Start:07-Jun-2015 Instruction Type:Patient Education Patient Instructions Indication:Heartburn Start:07-Jun-2015 Instruction Type:Provider Instructions for Treatment How to access health informa tion online - Detail Indication:Lumbago with sciatica Start:29-Mar-2015 Instruction Type:Patient Education Patient Instructions Indication:Lumbago with sciatica Start:29-Mar-2015 Instruction Type:Provider Instructions for Treatment Patient Instructions Indication:Myalgia Start:25-Jan-2015 Instruction Type:Provider Instructions for Treatment Patient Instructions Indication:Myalgia Start:10-Jan-2015 Instruction Type:Provider Instructions for Treatment Patient Instructions Indication:Dysuria Start:06-Jun-2014 Instruction Type:Provider Instructions for Treatment Patient Instructions Indication:Rash, drug Start:05-Jan-2014 Instruction Type:Provider Instructions for Treatment [facility] Work Phone: progress note Author Curt Stark [facility] Note Date/Time June 11, 2025 1: 23pm [facility] [address] [place] [address], [address] [place] [address] OFFICE VISIT Date of Service: 06/11/25 MR#: [id number] Acct: [id number] Name: PETER MARIEE Rep #: [id number] : 1935 Provider: Dr. Marquise Stark MD Age/Sex: 89/F [place] [facility] [place] Status: Signed HPI HPI Chief Complaint: Parkinson's Disease Details: he patient is a 89-year-old right-handed female who presents for a 3 month follow up on Parkinson's disease. At her last appointment Sinemet 10-100mg 1 tablet twice a day was initiated. Patient presents with her mother for evaluation. Patient was started on Sinemet 10 100s 1 p.o. twice daily. There has been some improvement in patient's Parkinson's symptoms. A small dose was initiated to see if the patient would tolerate the medication. She has had no problems with the medication such as dizziness or hallucinations. Patient notes that she is sleeping much better. She has more facial expression at this time. She feels as if she has energy but tends to run down near the endof the effectiveness of the medication. Notes from physical therapy noted. Patient seems to be making improvements withregard to gait. She still has some difficulty with balance and strength. She also complains of difficulty using her hands. She knows that she has the ability to do some manipulations but feels that her hands are weak. The strength may actually be good but she has problems initiating movement with her hands. ROS: Patient has no new complaints or symptoms to report at this time. Exam Const Other: Blood pressure 151/71 pulse 57 respiration 18 temperature 97.9 O2 sat is 95%. BMI is 23.4%. General appearance well-developed well-nourished lady sitting comfortably in chair. Neurologic examination: Mental status: She is awake alert oriented to person place. She also appears logan oriented to day month and year. Language shows normal reception agent expression. Insight and judgment appears intact. Patient denies hallucinations or delusions. Patient is not agitated. CN II-XII: Pupils are equal and round. Extraocular muscles are intact. Facial expression is definitely improved. Patient can smile and raise her eyebrows. Hearing is known to be impaired. She appears to be wearing her hearing aids today and is able to hear with the use of aids. Swallowing and phonation appearto be intact. Tongue movement appears intact as well. Motor examination shows that she has very good strength and grasping with her fingers her hands. She is able to move arms and legs well at this point in time. Cerebellar testing showed that she still remains mildly bradykinetic. She has abit of a tremor particularly in the thumbs. Cogwheeling appears to be minimal. Reflexes were trace at biceps trace at knees. Sensory exam showed no sensory deficits. Station gait showed that she was able to arise from a chair with a limited delay. Pushoff was needed. She then walked across the room relatively confidently with head up. She had relatively normal turning. Her gait is clearly improved in comparison to last visit. Assessment and Plan Assessment and Plan (1) Parkinson's disease without dyskinesia or fluctuating manifestations: Status: Chronic Comment: Patient making good progress with small dose of Sinemet. She is tolerating the medication. Plan: 1. Increase Sinemet 10 100s to 1 p.o. 4 times daily. 2. Patient to continue physical therapy for strength and balance. 3. Occupational Therapy has been ordered to help patient with hand manipulationand strength. 4. Patient will return to neurology clinic in November for reassessment. 5. Patient will call in should she have any difficulties with dizziness lightheadedness or hallucinations. Orders: Referrals Physical Therapy Referral G20.A1 - Parkinson's disease without dyskinesia, without mention of fluctuations Occupational Therapy Referral G20.A1 - Parkinson's disease without dyskinesia,without mention of fluctuations Medications: Changed From carbidopa-levodopa 10-100 mg (Sinemet) 1 TAB PO BID 60 tabs 4RF Parkinson's MDD 2 tablets G20.A1 - Parkinson's disease without dyskinesia, without mention of fluctuations To carbidopa-levodopa 10-100 mg (Sinemet) 1 TAB PO .QID 360 tabs 4RF Parkinson'sMDD 4 tablets G20.A1 - Parkinson's disease without dyskinesia, without mention of fluctuations Intake Vital Signs 04/03/25 13:21 06/11/25 12:58 Height 5 ft 1 in 5 ft 1 in Weight: 125 lb 2 oz 124 lb 4 oz BMI 23.6 23.4 BP 139/63 H 151/71 H Blood Pressure Location Lt brachial Lt brachial Position Sitting Sitting Respiration 15 18 Pulse 54 L 57 L Pulse Source Monitor Palpation Temp 92.1 F L 97.9 F Temp Source Temporal Temporal Pulse Oximetry (%) 94 95 Oxygen Delivery Method room air room air Intake Visit Reasons: 3 M FU Chief Complaint: Parkinson's Disease Script Worker Required: No Accompanied by: Daughter Is patient in pain?: No Allergies No Known Allergies Allergy (Verified 06/11/25 13:02) Medications ?Medication ?Instructions ?Recorded ?Confirmed ?Type aspirin 81 mg tablet,delayed 81 mg PO QDAY 01/24/18 History release folic acid 800 mcg tablet 0.8 mg PO DAILY 01/09/2002/28 History glucosamine-chondroitin 250 mg-200 1 tab PO DAILY 01/2306/11/25 History mg tablet (Osteo Bi-Flex) omeprazole 20 mg capsule,delayed 20 mg PO DAILY 06/11/25 History release rosuvastatin 20 mg tablet 20 mg PO QHS 02/26/23 History cholecalciferol (vitamin D3) 25 25 mcg PO DAILY 06/11/25 History mcg (1,000 unit) tablet ibandronate 150 mg tablet 150 mg PO QMONTH 02/11/24 History calcium carbonate 1,000 mg PO DAILY 06/24/24 1 History vitamin B comp and C no.3 15 mg-10 1 cap PO DAILY 06/0606/11/25 History mg-50 mg-5 mg-300 mg capsule (B Complex Plus Vitamin C) acetaminophen 500 mg tablet 500 mg PO BID PRN 03/29/25 06/11/25 History (Tylenol Extra Strength) atenolol 25 mg tablet 25 mg PO QDAY #90 tabs 03/2906/11/25 Rx losartan 50 mg tablet 50 mg PO QDAY #90 tabs 03/2906/11/25 Rx magnesium oxide 200 mg PO BID 03/29/2506/11 History furosemide 20 mg tablet 20 mg PO QDAY PRN edema 04/0606/11/25 History carbidopa 10 mg-levodopa 100 mg 1 tab PO .QID Parkinso n's #360 tabs 06/11/25 06/11/25 Rx tablet (Sinemet) Have you fallen in the past year?: Yes PFSH Medical History Wears hearing aid Loss of hearing Wears glasses Cardiology follow-up encounter Myocardial infarct Hypertension Greater trochanteric bursitis of right hip Trochanteric bursitis of right hip Essential (primary) hypertension GERD (gastroesophageal reflux disease) Osteopenia Gallstones Back problem Generalized osteoarthrosis 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 HLD (hyperlipidemia) Surgical History History of coronary artery stent placement History of left heart catheterization (01/22/20) History of coronary angioplasty (08/1999) 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) H/O left breast biopsy History of ovarian cystectomy History of appendectomy Hx of cholecystectomy H/O: hysterectomy Family History Mother Cancer Ovarian cancer Heart disease Breast cancer Hypertension Valvular heart disease Father Cancer throat cancer Asthma Sister Breast cancer Daughter Cancer Social History Smoking Status: Never smoker alcohol intake: current alcohol intake frequency: holidays/special occasions only Alcohol type: wine substance use type: does not use caffeine: No Clinical Quality Measures Falls Risk Screening/Assistive Devices Have you fallen in the past year?: Yes Coding Level of Care Code Established Pt Off vis,est,level 2 Patient Type Established History Problem Focused Exam Problem Focused Medical Decision Making Low Complexity Diagnoses Parkinson's disease without dyskinesia or fluctuating manifestations G20.A1 06/11/25 1333 <Electronically signed by Curt harrington MD> Date _ Curt Stark MD Cosigner Signature: Date (if applicable) CC: ~ [facility] Work Phone: Reason for referral (narrative)No reason for referral information availableWSt. [facility] Work Phone: Reason for visit Narrative* MRI/CT (Routine) - Closed Specialty Diagnoses / Procedures Referred By Karmen t Referred To Contact MR IMAGING Diagnoses Intracranial meningioma (HCC) Procedures MRI BRAIN WO/W IVCON MRI BRAIN BRAIN STEM W/O W/CONTRAST MATERIAL Ariane Tolentino, DEANN.GYMNASIUM TEACHER [address] [place] [address] Phone: tel: fax: [place] [id number] Referral ID Status Reason Start Date Expiration Date V isits Requested Visits Authorized [id number] Closed Auto-Generate d Referral 10/17/2024 11/16/2025 1 1 [facility] Family History No Family History Records FoundUnknown Family Member Name Dates Details Daughter 1 Comments:breast cancer Status:Active Daughter 2 Status:Active Father Comments:smoker throat cance r 89 Status:Active maternal aunt breast cancer Status:Active Mother Comments:breast, ovarian can cer 69, CAD later 90's Status:Active Sister 1 Comments:breast cancer Status:Active Son 1 Status:Active Unknown Family Member Name Dates Details Daughter 1 Comments:breast cancer Status:Active Daughter 2 Status:Active Father Comments:smoker throat cance r 89 Status:Active maternal aunt breast cancer Status:Active Mother Comments:breast, ovarian can cer 69, CAD later 90's Status:Active Sister 1 Comments:breast cancer Status:Active Son 1 Status:Active Unknown Family Member Name Dates Details Daughter 1 Comments:breast cancer Status:Active Daughter 2 Status:Active Father Comments:smoker throat cance r 89 Status:Active maternal aunt breast cancer Status:Active Mother Comments:breast, ovarian can cer 69, CAD later 90's Status:Active Sister 1 Comments:breast cancer Status:Active Son 1 Status:Active Unknown Family Member Name Dates Details Daughter 1 Comments:breast cancer Status:Active Daughter 2 Status:Active Father Comments:smoker glenna cance r 89 Status:Active maternal aunt breast cancer Status:Active Mother Comments:breast, ovarian can cer 69, CAD later 90's Status:Active Sister 1 Comments:breast cancer Status:Active Son 1 Status:Active Unknown Family Member Name Dates Details Daughter 1 Comments:breast cancer Status:Active Daughter 2 Status:Active Father Comments:smoker glenna cance r 89 Status:Active maternal aunt breast cancer Status:Active Mother Comments:breast, ovarian can cer 69, CAD later 90's Status:Active Sister 1 Comments:breast cancer Status:Active Son 1 Status:Active Unknown Family Member Name Dates Details Daughter 1 Comments:breast cancer Status:Active Daughter 2 Status:Active Father Comments:smoker glenna cance r 89 Status:Active maternal aunt breast cancer Status:Active Mother Comments:breast, ovarian can cer 69, CAD later 90's Status:Active Sister 1 Comments:breast cancer Status:Active Son 1 Status:Active Unknown Family Member Name Dates Details Daughter 1 Comments:breast cancer Status:Active Daughter 2 Status:Active Father Comments:smoker glenna cance r 89 Status:Active maternal aunt breast cancer Status:Active Mother Comments:breast, ovarian can cer 69, CAD later 90's Status:Active Sister 1 Comments:breast cancer Status:Active Son 1 Status:Active Unknown Family Member Name Dates Details Daughter 1 Comments:breast cancer Status:Active Daughter 2 Status:Active Father Comments:smoker glenna cance r 89 Status:Active maternal aunt breast cancer Status:Active Mother Comments:breast, ovarian can cer 69, CAD later 90's Status:Active Sister 1 Comments:breast cancer Status:Active Son 1 Status:Active Unknown Family Member Name Dates Details Daughter 1 Comments:breast cancer Status:Active Daughter 2 Status:Active Father Comments:smoker glenna cance r 89 Status:Active maternal aunt breast cancer Status:Active Mother Comments:breast, ovarian can cer 69, CAD later 90's Status:Active Sister 1 Comments:breast cancer Status:Active Son 1 Status:Active Unknown Family Member Name Dates Details Daughter 1 Comments:breast cancer Status:Active Daughter 2 Status:Active Father Comments:smoker glenna cance r 89 Status:Active maternal aunt breast cancer Status:Active Mother Comments:breast, ovarian can cer 69, CAD later 90's Status:Active Sister 1 Comments:breast cancer Status:Active Son 1 Status:Active Unknown Family Member Name Dates Details Daughter 1 Comments:breast cancer Status:Active Daughter 2 Status:Active Father Comments:smoker glenna cance r 89 Status:Active maternal aunt breast cancer Status:Active Mother Comments:breast, ovarian can cer 69, CAD later 90's Status:Active Sister 1 Comments:breast cancer Status:Active Son 1 Status:Active Unknown Family Member Name Dates Details Daughter 1 Comments:breast cancer Status:Active Daughter 2 Status:Active Father Comments:smoker glenna cance r 89 Status:Active maternal aunt breast cancer Status:Active Mother Comments:breast, ovarian can cer 69, CAD later 90's Status:Active Sister 1 Comments:breast cancer Status:Active Son 1 Status:Active Unknown Family Member Name Dates Details Daughter 1 Comments:breast cancer Status:Active Daughter 2 Status:Active Father Comments:smoker glenna cance r 89 Status:Active maternal aunt breast cancer Status:Active Mother Comments:breast, ovarian can cer 69, CAD later 90's Status:Active Sister 1 Comments:breast cancer Status:Active Son 1 Status:Active Unknown Family Member Name Dates Details Daughter 1 Comments:breast cancer Status:Active Daughter 2 Status:Active Father Comments:smoker glenna cance r 89 Status:Active maternal aunt breast cancer Status:Active Mother Comments:breast, ovarian can cer 69, CAD later 90's Status:Active Sister 1 Comments:breast cancer Status:Active Son 1 Status:Active Unknown Family Member Name Dates Details Daughter 1 Comments:breast cancer Status:Active Daughter 2 Status:Active Father Comments:smoker glenna cance r 89 Status:Active maternal aunt breast cancer Status:Active Mother Comments:breast, ovarian can cer 69, CAD later 90's Status:Active Sister 1 Comments:breast cancer Status:Active Son 1 Status:Active Unknown Family Member Name Dates Details Daughter 1 Comments:breast cancer Status:Active Daughter 2 Status:Active Father Comments:smoker glenna cance r 89 Status:Active maternal aunt breast cancer Status:Active Mother Comments:breast, ovarian can cer 69, CAD later 90's Status:Active Sister 1 Comments:breast cancer Status:Active Son 1 Status:Active Unknown Family Member Name Dates Details Daughter 1 Comments:breast cancer Status:Active Daughter 2 Status:Active Father Comments:smoker glenna cance r 89 Status:Active maternal aunt breast cancer Status:Active Mother Comments:breast, ovarian can cer 69, CAD later 90's Status:Active Sister 1 Comments:breast cancer Status:Active Son 1 Status:Active Unknown Family Member Name Dates Details Daughter 1 Comments:breast cancer Status:Active Daughter 2 Status:Active Father Comments:smoker glenna cance r 89 Status:Active maternal aunt breast cancer Status:Active Mother Comments:breast, ovarian can cer 69, CAD later 90's Status:Active Sister 1 Comments:breast cancer Status:Active Son 1 Status:Active Unknown Family Member Name Dates Details Daughter 1 Comments:breast cancer Status:Active Daughter 2 Status:Active Father Comments:smoker glenna cance r 89 Status:Active maternal aunt breast cancer Status:Active Mother Comments:breast, ovarian can cer 69, CAD later 90's Status:Active Sister 1 Comments:breast cancer Status:Active Son 1 Status:Active Unknown Family Member Name Dates Details Daughter 1 Comments:breast cancer Status:Active Daughter 2 Status:Active Father Comments:smoker glenna cance r 89 Status:Active maternal aunt breast cancer Status:Active Mother Comments:breast, ovarian can cer 69, CAD later 90's Status:Active Sister 1 Comments:breast cancer Status:Active Son 1 Status:Active Unknown Family Member Name Dates Details Daughter 1 Comments:breast cancer Status:Active Daughter 2 Status:Active Father Comments:smoker glenna cance r 89 Status:Active maternal aunt breast cancer Status:Active Mother Comments:breast, ovarian can cer 69, CAD later 90's Status:Active Sister 1 Comments:breast cancer Status:Active Son 1 Status:Active Unknown Family Member Name Dates Details Daughter 1 Comments:breast cancer Status:Active Daughter 2 Status:Active Father Comments:smoker glenna cance r 89 Status:Active maternal aunt breast cancer Status:Active Mother Comments:breast, ovarian can cer 69, CAD later 90's Status:Active Sister 1 Comments:breast cancer Status:Active Son 1 Status:Active Relationship Condition Age at Onset Recorded Date/T siddhartha mother Malignant neoplasm Unknown Cardiac disease Unknown Malignant neoplasm of breast Unknown Hypertension Unknown Heart valve disease Unknown father Malignant neoplasm Unknown Asthma Unknown sister Malignant neoplasm of breast Unknown daughter Malignant neoplasm Unknown Unknown Family Member Name Dates Details Daughter 1 Comments:breast cancer Status:Active Daughter 2 Status:Active Father Comments:smoker glenna cance r 89 Status:Active maternal aunt breast cancer Status:Active Mother Comments:breast, ovarian can cer 69, CAD later 90's Status:Active Sister 1 Comments:breast cancer Status:Active Son 1 Status:Active Unknown Family Member Name Dates Details Daughter 1 Comments:breast cancer Status:Active Daughter 2 Status:Active Father Comments:smoker glenna cance r 89 Status:Active maternal aunt breast cancer Status:Active Mother Comments:breast, ovarian can cer 69, CAD later 90's Status:Active Sister 1 Comments:breast cancer Status:Active Son 1 Status:Active Unknown Family Member Name Dates Details Daughter 1 Comments:breast cancer Status:Active Daughter 2 Status:Active Father Comments:smoker glenna cance r 89 Status:Active maternal aunt breast cancer Status:Active Mother Comments:breast, ovarian can cer 69, CAD later 90's Status:Active Sister 1 Comments:breast cancer Status:Active Son 1 Status:Active Unknown Family Member Name Dates Details Daughter 1 Comments:breast cancer Status:Active Daughter 2 Status:Active Father Comments:smoker glenna cance r 89 Status:Active maternal aunt breast cancer Status:Active Mother Comments:breast, ovarian can cer 69, CAD later 90's Status:Active Sister 1 Comments:breast cancer Status:Active Son 1 Status:Active Unknown Family Member Name Dates Details Daughter 1 Comments:breast cancer Status:Active Daughter 2 Status:Active Father Comments:smoker glenna cance r 89 Status:Active maternal aunt breast cancer Status:Active Mother Comments:breast, ovarian can cer 69, CAD later 90's Status:Active Sister 1 Comments:breast cancer Status:Active Son 1 Status:Active Unknown Family Member Name Dates Details Daughter 1 Comments:breast cancer Status:Active Daughter 2 Status:Active Father Comments:smoker glenna cance r 89 Status:Active maternal aunt breast cancer Status:Active Mother Comments:breast, ovarian can cer 69, CAD later 90's Status:Active Sister 1 Comments:breast cancer Status:Active Son 1 Status:Active Unknown Family Member Name Dates Details Daughter 1 Comments:breast cancer Status:Active Daughter 2 Status:Active Father Comments:smoker glenna cance r 89 Status:Active maternal aunt breast cancer Status:Active Mother Comments:breast, ovarian can cer 69, CAD later 90's Status:Active Sister 1 Comments:breast cancer Status:Active Son 1 Status:Active Unknown Family Member Name Dates Details Daughter 1 Comments:breast cancer Status:Active Daughter 2 Status:Active Father Comments:smoker glenna cance r 89 Status:Active maternal aunt breast cancer Status:Active Mother Comments:breast, ovarian can cer 69, CAD later 90's Status:Active Sister 1 Comments:breast cancer Status:Active Son 1 Status:Active Unknown Family Member Name Dates Details Daughter 1 Comments:breast cancer Status:Active Daughter 2 Status:Active Father Comments:smoker glenna cance r 89 Status:Active maternal aunt breast cancer Status:Active Mother Comments:breast, ovarian can cer 69, CAD later 90's Status:Active Sister 1 Comments:breast cancer Status:Active Son 1 Status:Active Unknown Family Member Name Dates Details Daughter 1 Comments:breast cancer Status:Active Daughter 2 Status:Active Father Comments:smoker glenna cance r 89 Status:Active maternal aunt breast cancer Status:Active Mother Comments:breast, ovarian can cer 69, CAD later 90's Status:Active Sister 1 Comments:breast cancer Status:Active Son 1 Status:Active Unknown Family Member Name Dates Details Daughter 1 Comments:breast cancer Status:Active Daughter 2 Status:Active Father Comments:smoker glenna cance r 89 Status:Active maternal aunt breast cancer Status:Active Mother Comments:breast, ovarian can cer 69, CAD later 90's Status:Active Sister 1 Comments:breast cancer Status:Active Son 1 Status:Active Unknown Family Member Name Dates Details Daughter 1 Comments:breast cancer Status:Active Daughter 2 Status:Active Father Comments:smoker glenna cance r 89 Status:Active maternal aunt breast cancer Status:Active Mother Comments:breast, ovarian can cer 69, CAD later 90's Status:Active Sister 1 Comments:breast cancer Status:Active Son 1 Status:Active Unknown Family Member Name Dates Details Daughter 1 Comments:breast cancer Status:Active Daughter 2 Status:Active Father Comments:smoker glenna cance r 89 Status:Active maternal aunt breast cancer Status:Active Mother Comments:breast, ovarian can cer 69, CAD later 90's Status:Active Sister 1 Comments:breast cancer Status:Active Son 1 Status:Active Unknown Family Member Name Dates Details Daughter 1 Comments:breast cancer Status:Active Daughter 2 Status:Active Father Comments:smoker glenna cance r 89 Status:Active maternal aunt breast cancer Status:Active Mother Comments:breast, ovarian can cer 69, CAD later 90's Status:Active Sister 1 Comments:breast cancer Status:Active Son 1 Status:Active Instructions Name Dates Details Osteoarthritis : How to acce ss health information online Indication:Osteoarthritis Osteoarthritis : How to acce ss health information online - Detail Indication:Osteoarthritis Osteoarthritis : Patient Ins tructions Indication:Osteoarthritis Anterior knee pain, left : H ow to access health information online Indication:Anterior knee pain, left Anterior knee pain, left : H ow to access health information online - Detail Indication:Anterior knee pain, left Anterior knee pain, left : P atient Instructions Indication:Anterior knee pain, left BMI 25.0-25.9,adult : How to access health information online Indication:BMI 25.0-25.9,adult BMI 25.0-25.9,adult : How to access health information online - Detail Indication:BMI 25.0-25.9,adult BMI 25.0-25.9,adult : Patien t Instructions Indication:BMI 25.0-25.9,adult Dermatitis of eyelids of bot h eyes : How to access health information online Indication:Dermatitis of eyelids of both eyes Dermatitis of eyelids of bot h eyes : How to access health information online - Detail Indication:Dermatitis of eyelids of both eyes Dermatitis of eyelids of bot h eyes : Patient Instructions Indication:Dermatitis of eyelids of both eyes Current nonsmoker (Renamed f rom Current non-smoker) : How to access health information online Indication:Current nonsmoker (Renamed from Current non-smoker) Current nonsmoker (Renamed f rom Current non-smoker) : How to access health information online - Detail Indication:Current nonsmoker (Renamed from Current non-smoker) Current nonsmoker (Renamed f rom Current non-smoker) : Patient Instructions Indication:Current nonsmoker (Renamed from Current non-smoker) Benign neoplasm of skin : Ho w to access health information online Indication:Benign neoplasm of skin Benign neoplasm of skin : Ho w to access health information online - Detail Indication:Benign neoplasm of skin Benign neoplasm of skin : Lopez smithnt Instructions Indication:Benign neoplasm of skin Annual Medicare Physical (Re named from Medicare annual wellness visit, subsequent) : How to access health information online Indication:Annual Medicare Physical (Renamed from Medicare annual wellness visit, subsequent) Annual Medicare Physical (Re named from Medicare annual wellness visit, subsequent) : How to access health information online - Detail Indication:Annual Medicare Physical (Renamed from Medicare annual wellness visit, subsequent) Annual Medicare Physical (Re named from Medicare annual wellness visit, subsequent) : Patient Instructions Indication:Annual Medicare Physical (Renamed from Medicare annual wellness visit, subsequent) Acute ankle pain, left : How to access health information online Indication:Acute ankle pain, left Acute ankle pain, left : How to access health information online - Detail Indication:Acute ankle pain, left Acute ankle pain, left : Pat ient Instructions Indication:Acute ankle pain, left Heartburn : How to access he alth information online - Detail Indication:Heartburn Heartburn : How to access he alth information online Indication:Heartburn Heartburn : Patient Instruct ions Indication:Heartburn Lumbago with sciatica : How to access health information online - Detail Indication:Lumbago with sciatica Lumbago with sciatica : Ute ent Instructions Indication:Lumbago with sciatica Myalgia : Patient Instructio ns Indication:Myalgia Dysuria : Patient Instructio ns Indication:Dysuria Rash, drug : Patient Instruc tions Indication:Rash, drug Name Dates Details Current nonsmoker (Renamed f rom Current non-smoker) : How to access health information online Indication:Current nonsmoker (Renamed from Current non-smoker) Current nonsmoker (Renamed f rom Current non-smoker) : How to access health information online - Detail Indication:Current nonsmoker (Renamed from Current non-smoker) Current nonsmoker (Renamed f rom Current non-smoker) : Patient Instructions Indication:Current nonsmoker (Renamed from Current non-smoker) Osteoarthritis : How to acce ss health information online Indication:Osteoarthritis Osteoarthritis : How to acce ss health information online - Detail Indication:Osteoarthritis Osteoarthritis : Patient Ins tructions Indication:Osteoarthritis Anterior knee pain, left : H ow to access health information online Indication:Anterior knee pain, left Anterior knee pain, left : H ow to access health information online - Detail Indication:Anterior knee pain, left Anterior knee pain, left : P atient Instructions Indication:Anterior knee pain, left BMI 25.0-25.9,adult : How to access health information online Indication:BMI 25.0-25.9,adult BMI 25.0-25.9,adult : How to access health information online - Detail Indication:BMI 25.0-25.9,adult BMI 25.0-25.9,adult : Patien t Instructions Indication:BMI 25.0-25.9,adult Dermatitis of eyelids of bot h eyes : How to access health information online Indication:Dermatitis of eyelids of both eyes Dermatitis of eyelids of bot h eyes : How to access health information online - Detail Indication:Dermatitis of eyelids of both eyes Dermatitis of eyelids of bot h eyes : Patient Instructions Indication:Dermatitis of eyelids of both eyes Benign neoplasm of skin : Ho w to access health information online Indication:Benign neoplasm of skin Benign neoplasm of skin : Ho w to access health information online - Detail Indication:Benign neoplasm of skin Benign neoplasm of skin : Lopez sadler Instructions Indication:Benign neoplasm of skin Annual Medicare Physical (Re named from Medicare annual wellness visit, subsequent) : How to access health information online Indication:Annual Medicare Physical (Renamed from Medicare annual wellness visit, subsequent) Annual Medicare Physical (Re named from Medicare annual wellness visit, subsequent) : How to access health information online - Detail Indication:Annual Medicare Physical (Renamed from Medicare annual wellness visit, subsequent) Annual Medicare Physical (Re named from Medicare annual wellness visit, subsequent) : Patient Instructions Indication:Annual Medicare Physical (Renamed from Medicare annual wellness visit, subsequent) Acute ankle pain, left : How to access health information online Indication:Acute ankle pain, left Acute ankle pain, left : How to access health information online - Detail Indication:Acute ankle pain, left Acute ankle pain, left : Stacy ient Instructions Indication:Acute ankle pain, left Heartburn : How to access he alth information online - Detail Indication:Heartburn Heartburn : How to access he alth information online Indication:Heartburn Heartburn : Patient Instruct ions Indication:Heartburn Lumbago with sciatica : How to access health information online - Detail Indication:Lumbago with sciatica Lumbago with sciatica : Ute ent Instructions Indication:Lumbago with sciatica Myalgia : Patient Instructio ns Indication:Myalgia Dysuria : Patient Instructio ns Indication:Dysuria Rash, drug : Patient Instruc tions Indication:Rash, drug Name Dates Details Current nonsmoker (Renamed f rom Current non-smoker) : How to access health information online Indication:Current nonsmoker (Renamed from Current non-smoker) Current nonsmoker (Renamed f rom Current non-smoker) : How to access health information online - Detail Indication:Current nonsmoker (Renamed from Current non-smoker) Current nonsmoker (Renamed f rom Current non-smoker) : Patient Instructions Indication:Current nonsmoker (Renamed from Current non-smoker) Osteoarthritis : How to acce ss health information online Indication:Osteoarthritis Osteoarthritis : How to acce ss health information online - Detail Indication:Osteoarthritis Osteoarthritis : Patient Ins tructions Indication:Osteoarthritis Anterior knee pain, left : H ow to access health information online Indication:Anterior knee pain, left Anterior knee pain, left : H ow to access health information online - Detail Indication:Anterior knee pain, left Anterior knee pain, left : P atient Instructions Indication:Anterior knee pain, left BMI 25.0-25.9,adult : How to access health information online Indication:BMI 25.0-25.9,adult BMI 25.0-25.9,adult : How to access health information online - Detail Indication:BMI 25.0-25.9,adult BMI 25.0-25.9,adult : Patien t Instructions Indication:BMI 25.0-25.9,adult Dermatitis of eyelids of bot h eyes : How to access health information online Indication:Dermatitis of eyelids of both eyes Dermatitis of eyelids of bot h eyes : How to access health information online - Detail Indication:Dermatitis of eyelids of both eyes Dermatitis of eyelids of bot h eyes : Patient Instructions Indication:Dermatitis of eyelids of both eyes Benign neoplasm of skin : Ho w to access health information online Indication:Benign neoplasm of skin Benign neoplasm of skin : Ho w to access health information online - Detail Indication:Benign neoplasm of skin Benign neoplasm of skin : Lopez sadler Instructions Indication:Benign neoplasm of skin Annual Medicare Physical (Re named from Medicare annual wellness visit, subsequent) : How to access health information online Indication:Annual Medicare Physical (Renamed from Medicare annual wellness visit, subsequent) Annual Medicare Physical (Re named from Medicare annual wellness visit, subsequent) : How to access health information online - Detail Indication:Annual Medicare Physical (Renamed from Medicare annual wellness visit, subsequent) Annual Medicare Physical (Re named from Medicare annual wellness visit, subsequent) : Patient Instructions Indication:Annual Medicare Physical (Renamed from Medicare annual wellness visit, subsequent) Acute ankle pain, left : How to access health information online Indication:Acute ankle pain, left Acute ankle pain, left : How to access health information online - Detail Indication:Acute ankle pain, left Acute ankle pain, left : Stacy ient Instructions Indication:Acute ankle pain, left Heartburn : How to access he alth information online - Detail Indication:Heartburn Heartburn : How to access he alth information online Indication:Heartburn Heartburn : Patient Instruct ions Indication:Heartburn Lumbago with sciatica : How to access health information online - Detail Indication:Lumbago with sciatica Lumbago with sciatica : Ute ent Instructions Indication:Lumbago with sciatica Myalgia : Patient Instructio ns Indication:Myalgia Dysuria : Patient Instructio ns Indication:Dysuria Rash, drug : Patient Instruc tions Indication:Rash, drug Name Dates Details How to access health informa tion online Indication:Current nonsmoker (Renamed from Current non-smoker) Start:01-Aug-2018 Instruction Type:Patient Education How to access health informa tion online - Detail Indication:Current nonsmoker (Renamed from Current non-smoker) Start:01-Aug-2018 Instruction Type:Patient Education Patient Instructions Indication:Current nonsmoker (Renamed from Current non-smoker) Start:01-Aug-2018 Instruction Type:Provider Instructions for Treatment How to access health informa tion online Indication:Osteoarthritis Start:04-Mar-2018 Instruction Type:Patient Education How to access health informa tion online - Detail Indication:Osteoarthritis Start:04-Mar-2018 Instruction Type:Patient Education Patient Instructions Indication:Osteoarthritis Start:04-Mar-2018 Instruction Type:Provider Instructions for Treatment How to access health informa tion online Indication:Anterior knee pain, left Start:18-Jan-2018 Instruction Type:Patient Education How to access health informa tion online - Detail Indication:Anterior knee pain, left Start:18-Jan-2018 Instruction Type:Patient Education Patient Instructions Indication:Anterior knee pain, left Start:18-Jan-2018 Instruction Type:Provider Instructions for Treatment How to access health informa tion online Indication:BMI 25.0-25.9,adult Start:13-Dec-2017 Instruction Type:Patient Education How to access health informa tion online - Detail Indication:BMI 25.0-25.9,adult Start:13-Dec-2017 Instruction Type:Patient Education Patient Instructions Indication:BMI 25.0-25.9,adult Start:13-Dec-2017 Instruction Type:Provider Instructions for Treatment How to access health informa tion online Indication:Anterior knee pain, left Start:02-Aug-2017 Instruction Type:Patient Education How to access health informa tion online - Detail Indication:Anterior knee pain, left Start:02-Aug-2017 Instruction Type:Patient Education Patient Instructions Indication:Anterior knee pain, left Start:02-Aug-2017 Instruction Type:Provider Instructions for Treatment How to access health informa tion online Indication:Dermatitis of eyelids of both eyes Start:18-Mar-2017 Instruction Type:Patient Education How to access health informa tion online - Detail Indication:Dermatitis of eyelids of both eyes Start:18-Mar-2017 Instruction Type:Patient Education Patient Instructions Indication:Dermatitis of eyelids of both eyes Start:18-Mar-2017 Instruction Type:Provider Instructions for Treatment How to access health informa tion online Indication:Current nonsmoker (Renamed from Current non-smoker) Start:12-Mar-2017 Instruction Type:Patient Education How to access health informa tion online - Detail Indication:Current nonsmoker (Renamed from Current non-smoker) Start:12-Mar-2017 Instruction Type:Patient Education Patient Instructions Indication:Current nonsmoker (Renamed from Current non-smoker) Start:12-Mar-2017 Instruction Type:Provider Instructions for Treatment How to access health informa tion online Indication:Benign neoplasm of skin Start:01-Mar-2017 Instruction Type:Patient Education How to access health informa tion online - Detail Indication:Benign neoplasm of skin Start:01-Mar-2017 Instruction Type:Patient Education Patient Instructions Indication:Benign neoplasm of skin Start:01-Mar-2017 Instruction Type:Provider Instructions for Treatment How to access health informa tion online Indication:BMI 25.0-25.9,adult Start:26-Jan-2017 Instruction Type:Patient Education How to access health informa tion online - Detail Indication:BMI 25.0-25.9,adult Start:26-Jan-2017 Instruction Type:Patient Education Patient Instructions Indication:BMI 25.0-25.9,adult Start:26-Jan-2017 Instruction Type:Provider Instructions for Treatment How to access health informa tion online Indication:Current nonsmoker (Renamed from Current non-smoker) Start:27-Aug-2016 Instruction Type:Patient Education How to access health informa tion online - Detail Indication:Current nonsmoker (Renamed from Current non-smoker) Start:27-Aug-2016 Instruction Type:Patient Education Patient Instructions Indication:Current nonsmoker (Renamed from Current non-smoker) Start:27-Aug-2016 Instruction Type:Provider Instructions for Treatment How to access health informa tion online Indication:Annual Medicare Physical (Renamed from Medicare annual wellness visit, subsequent) Start:12-Jun-2016 Instruction Type:Patient Education How to access health informa tion online - Detail Indication:Annual Medicare Physical (Renamed from Medicare annual wellness visit, subsequent) Start:12-Jun-2016 Instruction Type:Patient Education Patient Instructions Indication:Annual Medicare Physical (Renamed from Medicare annual wellness visit, subsequent) Start:12-Jun-2016 Instruction Type:Provider Instructions for Treatment How to access health informa tion online Indication:Acute ankle pain, left Start:14-Aug-2015 Instruction Type:Patient Education How to access health informa tion online - Detail Indication:Acute ankle pain, left Start:14-Aug-2015 Instruction Type:Patient Education Patient Instructions Indication:Acute ankle pain, left Start:14-Aug-2015 Instruction Type:Provider Instructions for Treatment How to access health informa tion online - Detail Indication:Heartburn Start:07-Jun-2015 Instruction Type:Patient Education How to access health informa tion online Indication:Heartburn Start:07-Jun-2015 Instruction Type:Patient Education Patient Instructions Indication:Heartburn Start:07-Jun-2015 Instruction Type:Provider Instructions for Treatment How to access health informa tion online - Detail Indication:Lumbago with sciatica Start:29-Mar-2015 Instruction Type:Patient Education Patient Instructions Indication:Lumbago with sciatica Start:29-Mar-2015 Instruction Type:Provider Instructions for Treatment Patient Instructions Indication:Myalgia Start:25-Jan-2015 Instruction Type:Provider Instructions for Treatment Patient Instructions Indication:Myalgia Start:10-Jan-2015 Instruction Type:Provider Instructions for Treatment Patient Instructions Indication:Dysuria Start:06-Jun-2014 Instruction Type:Provider Instructions for Treatment Patient Instructions Indication:Rash, drug Start:05-Jan-2014 Instruction Type:Provider Instructions for Treatment Name Dates Details How to access health informa tion online Indication:Annual Medicare Physical (Renamed from Medicare annual wellness visit, subsequent) Start:02-Feb-2019 Instruction Type:Patient Education How to access health informa tion online - Detail Indication:Annual Medicare Physical (Renamed from Medicare annual wellness visit, subsequent) Start:02-Feb-2019 Instruction Type:Patient Education Patient Instructions Indication:Annual Medicare Physical (Renamed from Medicare annual wellness visit, subsequent) Start:02-Feb-2019 Instruction Type:Provider Instructions for Treatment How to access health informa tion online Indication:Current nonsmoker (Renamed from Current non-smoker) Start:01-Aug-2018 Instruction Type:Patient Education How to access health informa tion online - Detail Indication:Current nonsmoker (Renamed from Current non-smoker) Start:01-Aug-2018 Instruction Type:Patient Education Patient Instructions Indication:Current nonsmoker (Renamed from Current non-smoker) Start:01-Aug-2018 Instruction Type:Provider Instructions for Treatment How to access health informa tion online Indication:Osteoarthritis Start:04-Mar-2018 Instruction Type:Patient Education How to access health informa tion online - Detail Indication:Osteoarthritis Start:04-Mar-2018 Instruction Type:Patient Education Patient Instructions Indication:Osteoarthritis Start:04-Mar-2018 Instruction Type:Provider Instructions for Treatment How to access health informa tion online Indication:Anterior knee pain, left Start:18-Jan-2018 Instruction Type:Patient Education How to access health informa tion online - Detail Indication:Anterior knee pain, left Start:18-Jan-2018 Instruction Type:Patient Education Patient Instructions Indication:Anterior knee pain, left Start:18-Jan-2018 Instruction Type:Provider Instructions for Treatment How to access health informa tion online Indication:BMI 25.0-25.9,adult Start:13-Dec-2017 Instruction Type:Patient Education How to access health informa tion online - Detail Indication:BMI 25.0-25.9,adult Start:13-Dec-2017 Instruction Type:Patient Education Patient Instructions Indication:BMI 25.0-25.9,adult Start:13-Dec-2017 Instruction Type:Provider Instructions for Treatment How to access health informa tion online Indication:Anterior knee pain, left Start:02-Aug-2017 Instruction Type:Patient Education How to access health informa tion online - Detail Indication:Anterior knee pain, left Start:02-Aug-2017 Instruction Type:Patient Education Patient Instructions Indication:Anterior knee pain, left Start:02-Aug-2017 Instruction Type:Provider Instructions for Treatment How to access health informa tion online Indication:Dermatitis of eyelids of both eyes Start:18-Mar-2017 Instruction Type:Patient Education How to access health informa tion online - Detail Indication:Dermatitis of eyelids of both eyes Start:18-Mar-2017 Instruction Type:Patient Education Patient Instructions Indication:Dermatitis of eyelids of both eyes Start:18-Mar-2017 Instruction Type:Provider Instructions for Treatment How to access health informa tion online Indication:Current nonsmoker (Renamed from Current non-smoker) Start:12-Mar-2017 Instruction Type:Patient Education How to access health informa tion online - Detail Indication:Current nonsmoker (Renamed from Current non-smoker) Start:12-Mar-2017 Instruction Type:Patient Education Patient Instructions Indication:Current nonsmoker (Renamed from Current non-smoker) Start:12-Mar-2017 Instruction Type:Provider Instructions for Treatment How to access health informa tion online Indication:Benign neoplasm of skin Start:01-Mar-2017 Instruction Type:Patient Education How to access health informa tion online - Detail Indication:Benign neoplasm of skin Start:01-Mar-2017 Instruction Type:Patient Education Patient Instructions Indication:Benign neoplasm of skin Start:01-Mar-2017 Instruction Type:Provider Instructions for Treatment How to access health informa tion online Indication:BMI 25.0-25.9,adult Start:26-Jan-2017 Instruction Type:Patient Education How to access health informa tion online - Detail Indication:BMI 25.0-25.9,adult Start:26-Jan-2017 Instruction Type:Patient Education Patient Instructions Indication:BMI 25.0-25.9,adult Start:26-Jan-2017 Instruction Type:Provider Instructions for Treatment How to access health informa tion online Indication:Current nonsmoker (Renamed from Current non-smoker) Start:27-Aug-2016 Instruction Type:Patient Education How to access health informa tion online - Detail Indication:Current nonsmoker (Renamed from Current non-smoker) Start:27-Aug-2016 Instruction Type:Patient Education Patient Instructions Indication:Current nonsmoker (Renamed from Current non-smoker) Start:27-Aug-2016 Instruction Type:Provider Instructions for Treatment How to access health informa tion online Indication:Annual Medicare Physical (Renamed from Medicare annual wellness visit, subsequent) Start:12-Jun-2016 Instruction Type:Patient Education How to access health informa tion online - Detail Indication:Annual Medicare Physical (Renamed from Medicare annual wellness visit, subsequent) Start:12-Jun-2016 Instruction Type:Patient Education Patient Instructions Indication:Annual Medicare Physical (Renamed from Medicare annual wellness visit, subsequent) Start:12-Jun-2016 Instruction Type:Provider Instructions for Treatment How to access health informa tion online Indication:Acute ankle pain, left Start:14-Aug-2015 Instruction Type:Patient Education How to access health informa tion online - Detail Indication:Acute ankle pain, left Start:14-Aug-2015 Instruction Type:Patient Education Patient Instructions Indication:Acute ankle pain, left Start:14-Aug-2015 Instruction Type:Provider Instructions for Treatment How to access health informa tion online - Detail Indication:Heartburn Start:07-Jun-2015 Instruction Type:Patient Education How to access health informa tion online Indication:Heartburn Start:07-Jun-2015 Instruction Type:Patient Education Patient Instructions Indication:Heartburn Start:07-Jun-2015 Instruction Type:Provider Instructions for Treatment How to access health informa tion online - Detail Indication:Lumbago with sciatica Start:29-Mar-2015 Instruction Type:Patient Education Patient Instructions Indication:Lumbago with sciatica Start:29-Mar-2015 Instruction Type:Provider Instructions for Treatment Patient Instructions Indication:Myalgia Start:25-Jan-2015 Instruction Type:Provider Instructions for Treatment Patient Instructions Indication:Myalgia Start:10-Jan-2015 Instruction Type:Provider Instructions for Treatment Patient Instructions Indication:Dysuria Start:06-Jun-2014 Instruction Type:Provider Instructions for Treatment Patient Instructions Indication:Rash, drug Start:05-Jan-2014 Instruction Type:Provider Instructions for Treatment Name Dates Details How to access health informa tion online Indication:Annual Medicare Physical (Renamed from Medicare annual wellness visit, subsequent) Start:02-Feb-2019 Instruction Type:Patient Education How to access health informa tion online - Detail Indication:Annual Medicare Physical (Renamed from Medicare annual wellness visit, subsequent) Start:02-Feb-2019 Instruction Type:Patient Education Patient Instructions Indication:Annual Medicare Physical (Renamed from Medicare annual wellness visit, subsequent) Start:02-Feb-2019 Instruction Type:Provider Instructions for Treatment How to access health informa tion online Indication:Current nonsmoker (Renamed from Current non-smoker) Start:01-Aug-2018 Instruction Type:Patient Education How to access health informa tion online - Detail Indication:Current nonsmoker (Renamed from Current non-smoker) Start:01-Aug-2018 Instruction Type:Patient Education Patient Instructions Indication:Current nonsmoker (Renamed from Current non-smoker) Start:01-Aug-2018 Instruction Type:Provider Instructions for Treatment How to access health informa tion online Indication:Osteoarthritis Start:04-Mar-2018 Instruction Type:Patient Education How to access health informa tion online - Detail Indication:Osteoarthritis Start:04-Mar-2018 Instruction Type:Patient Education Patient Instructions Indication:Osteoarthritis Start:04-Mar-2018 Instruction Type:Provider Instructions for Treatment How to access health informa tion online Indication:Anterior knee pain, left Start:18-Jan-2018 Instruction Type:Patient Education How to access health informa tion online - Detail Indication:Anterior knee pain, left Start:18-Jan-2018 Instruction Type:Patient Education Patient Instructions Indication:Anterior knee pain, left Start:18-Jan-2018 Instruction Type:Provider Instructions for Treatment How to access health informa tion online Indication:BMI 25.0-25.9,adult Start:13-Dec-2017 Instruction Type:Patient Education How to access health informa tion online - Detail Indication:BMI 25.0-25.9,adult Start:13-Dec-2017 Instruction Type:Patient Education Patient Instructions Indication:BMI 25.0-25.9,adult Start:13-Dec-2017 Instruction Type:Provider Instructions for Treatment How to access health informa tion online Indication:Anterior knee pain, left Start:02-Aug-2017 Instruction Type:Patient Education How to access health informa tion online - Detail Indication:Anterior knee pain, left Start:02-Aug-2017 Instruction Type:Patient Education Patient Instructions Indication:Anterior knee pain, left Start:02-Aug-2017 Instruction Type:Provider Instructions for Treatment How to access health informa tion online Indication:Dermatitis of eyelids of both eyes Start:18-Mar-2017 Instruction Type:Patient Education How to access health informa tion online - Detail Indication:Dermatitis of eyelids of both eyes Start:18-Mar-2017 Instruction Type:Patient Education Patient Instructions Indication:Dermatitis of eyelids of both eyes Start:18-Mar-2017 Instruction Type:Provider Instructions for Treatment How to access health informa tion online Indication:Current nonsmoker (Renamed from Current non-smoker) Start:12-Mar-2017 Instruction Type:Patient Education How to access health informa tion online - Detail Indication:Current nonsmoker (Renamed from Current non-smoker) Start:12-Mar-2017 Instruction Type:Patient Education Patient Instructions Indication:Current nonsmoker (Renamed from Current non-smoker) Start:12-Mar-2017 Instruction Type:Provider Instructions for Treatment How to access health informa tion online Indication:Benign neoplasm of skin Start:01-Mar-2017 Instruction Type:Patient Education How to access health informa tion online - Detail Indication:Benign neoplasm of skin Start:01-Mar-2017 Instruction Type:Patient Education Patient Instructions Indication:Benign neoplasm of skin Start:01-Mar-2017 Instruction Type:Provider Instructions for Treatment How to access health informa tion online Indication:BMI 25.0-25.9,adult Start:26-Jan-2017 Instruction Type:Patient Education How to access health informa tion online - Detail Indication:BMI 25.0-25.9,adult Start:26-Jan-2017 Instruction Type:Patient Education Patient Instructions Indication:BMI 25.0-25.9,adult Start:26-Jan-2017 Instruction Type:Provider Instructions for Treatment How to access health informa tion online Indication:Current nonsmoker (Renamed from Current non-smoker) Start:27-Aug-2016 Instruction Type:Patient Education How to access health informa tion online - Detail Indication:Current nonsmoker (Renamed from Current non-smoker) Start:27-Aug-2016 Instruction Type:Patient Education Patient Instructions Indication:Current nonsmoker (Renamed from Current non-smoker) Start:27-Aug-2016 Instruction Type:Provider Instructions for Treatment How to access health informa tion online Indication:Annual Medicare Physical (Renamed from Medicare annual wellness visit, subsequent) Start:12-Jun-2016 Instruction Type:Patient Education How to access health informa tion online - Detail Indication:Annual Medicare Physical (Renamed from Medicare annual wellness visit, subsequent) Start:12-Jun-2016 Instruction Type:Patient Education Patient Instructions Indication:Annual Medicare Physical (Renamed from Medicare annual wellness visit, subsequent) Start:12-Jun-2016 Instruction Type:Provider Instructions for Treatment How to access health informa tion online Indication:Acute ankle pain, left Start:14-Aug-2015 Instruction Type:Patient Education How to access health informa tion online - Detail Indication:Acute ankle pain, left Start:14-Aug-2015 Instruction Type:Patient Education Patient Instructions Indication:Acute ankle pain, left Start:14-Aug-2015 Instruction Type:Provider Instructions for Treatment How to access health informa tion online - Detail Indication:Heartburn Start:07-Jun-2015 Instruction Type:Patient Education How to access health informa tion online Indication:Heartburn Start:07-Jun-2015 Instruction Type:Patient Education Patient Instructions Indication:Heartburn Start:07-Jun-2015 Instruction Type:Provider Instructions for Treatment How to access health informa tion online - Detail Indication:Lumbago with sciatica Start:29-Mar-2015 Instruction Type:Patient Education Patient Instructions Indication:Lumbago with sciatica Start:29-Mar-2015 Instruction Type:Provider Instructions for Treatment Patient Instructions Indication:Myalgia Start:25-Jan-2015 Instruction Type:Provider Instructions for Treatment Patient Instructions Indication:Myalgia Start:10-Jan-2015 Instruction Type:Provider Instructions for Treatment Patient Instructions Indication:Dysuria Start:06-Jun-2014 Instruction Type:Provider Instructions for Treatment Patient Instructions Indication:Rash, drug Start:05-Jan-2014 Instruction Type:Provider Instructions for Treatment Name Dates Details How to access health informa tion online Indication:Annual Medicare Physical (Renamed from Medicare annual wellness visit, subsequent) Start:02-Feb-2019 Instruction Type:Patient Education How to access health informa tion online - Detail Indication:Annual Medicare Physical (Renamed from Medicare annual wellness visit, subsequent) Start:02-Feb-2019 Instruction Type:Patient Education Patient Instructions Indication:Annual Medicare Physical (Renamed from Medicare annual wellness visit, subsequent) Start:02-Feb-2019 Instruction Type:Provider Instructions for Treatment How to access health informa tion online Indication:Current nonsmoker (Renamed from Current non-smoker) Start:01-Aug-2018 Instruction Type:Patient Education How to access health informa tion online - Detail Indication:Current nonsmoker (Renamed from Current non-smoker) Start:01-Aug-2018 Instruction Type:Patient Education Patient Instructions Indication:Current nonsmoker (Renamed from Current non-smoker) Start:01-Aug-2018 Instruction Type:Provider Instructions for Treatment How to access health informa tion online Indication:Osteoarthritis Start:04-Mar-2018 Instruction Type:Patient Education How to access health informa tion online - Detail Indication:Osteoarthritis Start:04-Mar-2018 Instruction Type:Patient Education Patient Instructions Indication:Osteoarthritis Start:04-Mar-2018 Instruction Type:Provider Instructions for Treatment How to access health informa tion online Indication:Anterior knee pain, left Start:18-Jan-2018 Instruction Type:Patient Education How to access health informa tion online - Detail Indication:Anterior knee pain, left Start:18-Jan-2018 Instruction Type:Patient Education Patient Instructions Indication:Anterior knee pain, left Start:18-Jan-2018 Instruction Type:Provider Instructions for Treatment How to access health informa tion online Indication:BMI 25.0-25.9,adult Start:13-Dec-2017 Instruction Type:Patient Education How to access health informa tion online - Detail Indication:BMI 25.0-25.9,adult Start:13-Dec-2017 Instruction Type:Patient Education Patient Instructions Indication:BMI 25.0-25.9,adult Start:13-Dec-2017 Instruction Type:Provider Instructions for Treatment How to access health informa tion online Indication:Anterior knee pain, left Start:02-Aug-2017 Instruction Type:Patient Education How to access health informa tion online - Detail Indication:Anterior knee pain, left Start:02-Aug-2017 Instruction Type:Patient Education Patient Instructions Indication:Anterior knee pain, left Start:02-Aug-2017 Instruction Type:Provider Instructions for Treatment How to access health informa tion online Indication:Dermatitis of eyelids of both eyes Start:18-Mar-2017 Instruction Type:Patient Education How to access health informa tion online - Detail Indication:Dermatitis of eyelids of both eyes Start:18-Mar-2017 Instruction Type:Patient Education Patient Instructions Indication:Dermatitis of eyelids of both eyes Start:18-Mar-2017 Instruction Type:Provider Instructions for Treatment How to access health informa tion online Indication:Current nonsmoker (Renamed from Current non-smoker) Start:12-Mar-2017 Instruction Type:Patient Education How to access health informa tion online - Detail Indication:Current nonsmoker (Renamed from Current non-smoker) Start:12-Mar-2017 Instruction Type:Patient Education Patient Instructions Indication:Current nonsmoker (Renamed from Current non-smoker) Start:12-Mar-2017 Instruction Type:Provider Instructions for Treatment How to access health informa tion online Indication:Benign neoplasm of skin Start:01-Mar-2017 Instruction Type:Patient Education How to access health informa tion online - Detail Indication:Benign neoplasm of skin Start:01-Mar-2017 Instruction Type:Patient Education Patient Instructions Indication:Benign neoplasm of skin Start:01-Mar-2017 Instruction Type:Provider Instructions for Treatment How to access health informa tion online Indication:BMI 25.0-25.9,adult Start:26-Jan-2017 Instruction Type:Patient Education How to access health informa tion online - Detail Indication:BMI 25.0-25.9,adult Start:26-Jan-2017 Instruction Type:Patient Education Patient Instructions Indication:BMI 25.0-25.9,adult Start:26-Jan-2017 Instruction Type:Provider Instructions for Treatment How to access health informa tion online Indication:Current nonsmoker (Renamed from Current non-smoker) Start:27-Aug-2016 Instruction Type:Patient Education How to access health informa tion online - Detail Indication:Current nonsmoker (Renamed from Current non-smoker) Start:27-Aug-2016 Instruction Type:Patient Education Patient Instructions Indication:Current nonsmoker (Renamed from Current non-smoker) Start:27-Aug-2016 Instruction Type:Provider Instructions for Treatment How to access health informa tion online Indication:Annual Medicare Physical (Renamed from Medicare annual wellness visit, subsequent) Start:12-Jun-2016 Instruction Type:Patient Education How to access health informa tion online - Detail Indication:Annual Medicare Physical (Renamed from Medicare annual wellness visit, subsequent) Start:12-Jun-2016 Instruction Type:Patient Education Patient Instructions Indication:Annual Medicare Physical (Renamed from Medicare annual wellness visit, subsequent) Start:12-Jun-2016 Instruction Type:Provider Instructions for Treatment How to access health informa tion online Indication:Acute ankle pain, left Start:14-Aug-2015 Instruction Type:Patient Education How to access health informa tion online - Detail Indication:Acute ankle pain, left Start:14-Aug-2015 Instruction Type:Patient Education Patient Instructions Indication:Acute ankle pain, left Start:14-Aug-2015 Instruction Type:Provider Instructions for Treatment How to access health informa tion online - Detail Indication:Heartburn Start:07-Jun-2015 Instruction Type:Patient Education How to access health informa tion online Indication:Heartburn Start:07-Jun-2015 Instruction Type:Patient Education Patient Instructions Indication:Heartburn Start:07-Jun-2015 Instruction Type:Provider Instructions for Treatment How to access health informa tion online - Detail Indication:Lumbago with sciatica Start:29-Mar-2015 Instruction Type:Patient Education Patient Instructions Indication:Lumbago with sciatica Start:29-Mar-2015 Instruction Type:Provider Instructions for Treatment Patient Instructions Indication:Myalgia Start:25-Jan-2015 Instruction Type:Provider Instructions for Treatment Patient Instructions Indication:Myalgia Start:10-Jan-2015 Instruction Type:Provider Instructions for Treatment Patient Instructions Indication:Dysuria Start:06-Jun-2014 Instruction Type:Provider Instructions for Treatment Patient Instructions Indication:Rash, drug Start:05-Jan-2014 Instruction Type:Provider Instructions for Treatment Name Dates Details How to access health informa tion online Indication:Annual Medicare Physical (Renamed from Medicare annual wellness visit, subsequent) Start:02-Feb-2019 Instruction Type:Patient Education How to access health informa tion online - Detail Indication:Annual Medicare Physical (Renamed from Medicare annual wellness visit, subsequent) Start:02-Feb-2019 Instruction Type:Patient Education Patient Instructions Indication:Annual Medicare Physical (Renamed from Medicare annual wellness visit, subsequent) Start:02-Feb-2019 Instruction Type:Provider Instructions for Treatment How to access health informa tion online Indication:Current nonsmoker (Renamed from Current non-smoker) Start:01-Aug-2018 Instruction Type:Patient Education How to access health informa tion online - Detail Indication:Current nonsmoker (Renamed from Current non-smoker) Start:01-Aug-2018 Instruction Type:Patient Education Patient Instructions Indication:Current nonsmoker (Renamed from Current non-smoker) Start:01-Aug-2018 Instruction Type:Provider Instructions for Treatment How to access health informa tion online Indication:Osteoarthritis Start:04-Mar-2018 Instruction Type:Patient Education How to access health informa tion online - Detail Indication:Osteoarthritis Start:04-Mar-2018 Instruction Type:Patient Education Patient Instructions Indication:Osteoarthritis Start:04-Mar-2018 Instruction Type:Provider Instructions for Treatment How to access health informa tion online Indication:Anterior knee pain, left Start:18-Jan-2018 Instruction Type:Patient Education How to access health informa tion online - Detail Indication:Anterior knee pain, left Start:18-Jan-2018 Instruction Type:Patient Education Patient Instructions Indication:Anterior knee pain, left Start:18-Jan-2018 Instruction Type:Provider Instructions for Treatment How to access health informa tion online Indication:BMI 25.0-25.9,adult Start:13-Dec-2017 Instruction Type:Patient Education How to access health informa tion online - Detail Indication:BMI 25.0-25.9,adult Start:13-Dec-2017 Instruction Type:Patient Education Patient Instructions Indication:BMI 25.0-25.9,adult Start:13-Dec-2017 Instruction Type:Provider Instructions for Treatment How to access health informa tion online Indication:Anterior knee pain, left Start:02-Aug-2017 Instruction Type:Patient Education How to access health informa tion online - Detail Indication:Anterior knee pain, left Start:02-Aug-2017 Instruction Type:Patient Education Patient Instructions Indication:Anterior knee pain, left Start:02-Aug-2017 Instruction Type:Provider Instructions for Treatment How to access health informa tion online Indication:Dermatitis of eyelids of both eyes Start:18-Mar-2017 Instruction Type:Patient Education How to access health informa tion online - Detail Indication:Dermatitis of eyelids of both eyes Start:18-Mar-2017 Instruction Type:Patient Education Patient Instructions Indication:Dermatitis of eyelids of both eyes Start:18-Mar-2017 Instruction Type:Provider Instructions for Treatment How to access health informa tion online Indication:Current nonsmoker (Renamed from Current non-smoker) Start:12-Mar-2017 Instruction Type:Patient Education How to access health informa tion online - Detail Indication:Current nonsmoker (Renamed from Current non-smoker) Start:12-Mar-2017 Instruction Type:Patient Education Patient Instructions Indication:Current nonsmoker (Renamed from Current non-smoker) Start:12-Mar-2017 Instruction Type:Provider Instructions for Treatment How to access health informa tion online Indication:Benign neoplasm of skin Start:01-Mar-2017 Instruction Type:Patient Education How to access health informa tion online - Detail Indication:Benign neoplasm of skin Start:01-Mar-2017 Instruction Type:Patient Education Patient Instructions Indication:Benign neoplasm of skin Start:01-Mar-2017 Instruction Type:Provider Instructions for Treatment How to access health informa tion online Indication:BMI 25.0-25.9,adult Start:26-Jan-2017 Instruction Type:Patient Education How to access health informa tion online - Detail Indication:BMI 25.0-25.9,adult Start:26-Jan-2017 Instruction Type:Patient Education Patient Instructions Indication:BMI 25.0-25.9,adult Start:26-Jan-2017 Instruction Type:Provider Instructions for Treatment How to access health informa tion online Indication:Current nonsmoker (Renamed from Current non-smoker) Start:27-Aug-2016 Instruction Type:Patient Education How to access health informa tion online - Detail Indication:Current nonsmoker (Renamed from Current non-smoker) Start:27-Aug-2016 Instruction Type:Patient Education Patient Instructions Indication:Current nonsmoker (Renamed from Current non-smoker) Start:27-Aug-2016 Instruction Type:Provider Instructions for Treatment How to access health informa tion online Indication:Annual Medicare Physical (Renamed from Medicare annual wellness visit, subsequent) Start:12-Jun-2016 Instruction Type:Patient Education How to access health informa tion online - Detail Indication:Annual Medicare Physical (Renamed from Medicare annual wellness visit, subsequent) Start:12-Jun-2016 Instruction Type:Patient Education Patient Instructions Indication:Annual Medicare Physical (Renamed from Medicare annual wellness visit, subsequent) Start:12-Jun-2016 Instruction Type:Provider Instructions for Treatment How to access health informa tion online Indication:Acute ankle pain, left Start:14-Aug-2015 Instruction Type:Patient Education How to access health informa tion online - Detail Indication:Acute ankle pain, left Start:14-Aug-2015 Instruction Type:Patient Education Patient Instructions Indication:Acute ankle pain, left Start:14-Aug-2015 Instruction Type:Provider Instructions for Treatment How to access health informa tion online - Detail Indication:Heartburn Start:07-Jun-2015 Instruction Type:Patient Education How to access health informa tion online Indication:Heartburn Start:07-Jun-2015 Instruction Type:Patient Education Patient Instructions Indication:Heartburn Start:07-Jun-2015 Instruction Type:Provider Instructions for Treatment How to access health informa tion online - Detail Indication:Lumbago with sciatica Start:29-Mar-2015 Instruction Type:Patient Education Patient Instructions Indication:Lumbago with sciatica Start:29-Mar-2015 Instruction Type:Provider Instructions for Treatment Patient Instructions Indication:Myalgia Start:25-Jan-2015 Instruction Type:Provider Instructions for Treatment Patient Instructions Indication:Myalgia Start:10-Jan-2015 Instruction Type:Provider Instructions for Treatment Patient Instructions Indication:Dysuria Start:06-Jun-2014 Instruction Type:Provider Instructions for Treatment Patient Instructions Indication:Rash, drug Start:05-Jan-2014 Instruction Type:Provider Instructions for Treatment Name Dates Details How to access health informa tion online Indication:Abnormal fasting glucose Start:30-Jan-2020 Instruction Type:Patient Education How to access health informa tion online - Detail Indication:Abnormal fasting glucose Start:30-Jan-2020 Instruction Type:Patient Education Patient Instructions Indication:Abnormal fasting glucose Start:30-Jan-2020 Instruction Type:Provider Instructions for Treatment How to access health informa tion online Indication:Annual Medicare Physical (Renamed from Medicare annual wellness visit, subsequent) Start:31-Jul-2019 Instruction Type:Patient Education How to access health informa tion online - Detail Indication:Annual Medicare Physical (Renamed from Medicare annual wellness visit, subsequent) Start:31-Jul-2019 Instruction Type:Patient Education Patient Instructions Indication:Annual Medicare Physical (Renamed from Medicare annual wellness visit, subsequent) Start:31-Jul-2019 Instruction Type:Provider Instructions for Treatment How to access health informa tion online Indication:Annual Medicare Physical (Renamed from Medicare annual wellness visit, subsequent) Start:02-Feb-2019 Instruction Type:Patient Education How to access health informa tion online - Detail Indication:Annual Medicare Physical (Renamed from Medicare annual wellness visit, subsequent) Start:02-Feb-2019 Instruction Type:Patient Education Patient Instructions Indication:Annual Medicare Physical (Renamed from Medicare annual wellness visit, subsequent) Start:02-Feb-2019 Instruction Type:Provider Instructions for Treatment How to access health informa tion online Indication:Current nonsmoker (Renamed from Current non-smoker) Start:01-Aug-2018 Instruction Type:Patient Education How to access health informa tion online - Detail Indication:Current nonsmoker (Renamed from Current non-smoker) Start:01-Aug-2018 Instruction Type:Patient Education Patient Instructions Indication:Current nonsmoker (Renamed from Current non-smoker) Start:01-Aug-2018 Instruction Type:Provider Instructions for Treatment How to access health informa tion online Indication:Osteoarthritis Start:04-Mar-2018 Instruction Type:Patient Education How to access health informa tion online - Detail Indication:Osteoarthritis Start:04-Mar-2018 Instruction Type:Patient Education Patient Instructions Indication:Osteoarthritis Start:04-Mar-2018 Instruction Type:Provider Instructions for Treatment How to access health informa tion online Indication:Anterior knee pain, left Start:18-Jan-2018 Instruction Type:Patient Education How to access health informa tion online - Detail Indication:Anterior knee pain, left Start:18-Jan-2018 Instruction Type:Patient Education Patient Instructions Indication:Anterior knee pain, left Start:18-Jan-2018 Instruction Type:Provider Instructions for Treatment How to access health informa tion online Indication:BMI 25.0-25.9,adult Start:13-Dec-2017 Instruction Type:Patient Education How to access health informa tion online - Detail Indication:BMI 25.0-25.9,adult Start:13-Dec-2017 Instruction Type:Patient Education Patient Instructions Indication:BMI 25.0-25.9,adult Start:13-Dec-2017 Instruction Type:Provider Instructions for Treatment How to access health informa tion online Indication:Anterior knee pain, left Start:02-Aug-2017 Instruction Type:Patient Education How to access health informa tion online - Detail Indication:Anterior knee pain, left Start:02-Aug-2017 Instruction Type:Patient Education Patient Instructions Indication:Anterior knee pain, left Start:02-Aug-2017 Instruction Type:Provider Instructions for Treatment How to access health informa tion online Indication:Dermatitis of eyelids of both eyes Start:18-Mar-2017 Instruction Type:Patient Education How to access health informa tion online - Detail Indication:Dermatitis of eyelids of both eyes Start:18-Mar-2017 Instruction Type:Patient Education Patient Instructions Indication:Dermatitis of eyelids of both eyes Start:18-Mar-2017 Instruction Type:Provider Instructions for Treatment How to access health informa tion online Indication:Current nonsmoker (Renamed from Current non-smoker) Start:12-Mar-2017 Instruction Type:Patient Education How to access health informa tion online - Detail Indication:Current nonsmoker (Renamed from Current non-smoker) Start:12-Mar-2017 Instruction Type:Patient Education Patient Instructions Indication:Current nonsmoker (Renamed from Current non-smoker) Start:12-Mar-2017 Instruction Type:Provider Instructions for Treatment How to access health informa tion online Indication:Benign neoplasm of skin Start:01-Mar-2017 Instruction Type:Patient Education How to access health informa tion online - Detail Indication:Benign neoplasm of skin Start:01-Mar-2017 Instruction Type:Patient Education Patient Instructions Indication:Benign neoplasm of skin Start:01-Mar-2017 Instruction Type:Provider Instructions for Treatment How to access health informa tion online Indication:BMI 25.0-25.9,adult Start:26-Jan-2017 Instruction Type:Patient Education How to access health informa tion online - Detail Indication:BMI 25.0-25.9,adult Start:26-Jan-2017 Instruction Type:Patient Education Patient Instructions Indication:BMI 25.0-25.9,adult Start:26-Jan-2017 Instruction Type:Provider Instructions for Treatment How to access health informa tion online Indication:Current nonsmoker (Renamed from Current non-smoker) Start:27-Aug-2016 Instruction Type:Patient Education How to access health informa tion online - Detail Indication:Current nonsmoker (Renamed from Current non-smoker) Start:27-Aug-2016 Instruction Type:Patient Education Patient Instructions Indication:Current nonsmoker (Renamed from Current non-smoker) Start:27-Aug-2016 Instruction Type:Provider Instructions for Treatment How to access health informa tion online Indication:Annual Medicare Physical (Renamed from Medicare annual wellness visit, subsequent) Start:12-Jun-2016 Instruction Type:Patient Education How to access health informa tion online - Detail Indication:Annual Medicare Physical (Renamed from Medicare annual wellness visit, subsequent) Start:12-Jun-2016 Instruction Type:Patient Education Patient Instructions Indication:Annual Medicare Physical (Renamed from Medicare annual wellness visit, subsequent) Start:12-Jun-2016 Instruction Type:Provider Instructions for Treatment How to access health informa tion online Indication:Acute ankle pain, left Start:14-Aug-2015 Instruction Type:Patient Education How to access health informa tion online - Detail Indication:Acute ankle pain, left Start:14-Aug-2015 Instruction Type:Patient Education Patient Instructions Indication:Acute ankle pain, left Start:14-Aug-2015 Instruction Type:Provider Instructions for Treatment How to access health informa tion online - Detail Indication:Heartburn Start:07-Jun-2015 Instruction Type:Patient Education How to access health informa tion online Indication:Heartburn Start:07-Jun-2015 Instruction Type:Patient Education Patient Instructions Indication:Heartburn Start:07-Jun-2015 Instruction Type:Provider Instructions for Treatment How to access health informa tion online - Detail Indication:Lumbago with sciatica Start:29-Mar-2015 Instruction Type:Patient Education Patient Instructions Indication:Lumbago with sciatica Start:29-Mar-2015 Instruction Type:Provider Instructions for Treatment Patient Instructions Indication:Myalgia Start:25-Jan-2015 Instruction Type:Provider Instructions for Treatment Patient Instructions Indication:Myalgia Start:10-Jan-2015 Instruction Type:Provider Instructions for Treatment Patient Instructions Indication:Dysuria Start:06-Jun-2014 Instruction Type:Provider Instructions for Treatment Patient Instructions Indication:Rash, drug Start:05-Jan-2014 Instruction Type:Provider Instructions for Treatment Name Dates Details How to access health informa tion online Indication:Abnormal fasting glucose Start:30-Jan-2020 Instruction Type:Patient Education How to access health informa tion online - Detail Indication:Abnormal fasting glucose Start:30-Jan-2020 Instruction Type:Patient Education Patient Instructions Indication:Abnormal fasting glucose Start:30-Jan-2020 Instruction Type:Provider Instructions for Treatment How to access health informa tion online Indication:Annual Medicare Physical (Renamed from Medicare annual wellness visit, subsequent) Start:31-Jul-2019 Instruction Type:Patient Education How to access health informa tion online - Detail Indication:Annual Medicare Physical (Renamed from Medicare annual wellness visit, subsequent) Start:31-Jul-2019 Instruction Type:Patient Education Patient Instructions Indication:Annual Medicare Physical (Renamed from Medicare annual wellness visit, subsequent) Start:31-Jul-2019 Instruction Type:Provider Instructions for Treatment How to access health informa tion online Indication:Annual Medicare Physical (Renamed from Medicare annual wellness visit, subsequent) Start:02-Feb-2019 Instruction Type:Patient Education How to access health informa tion online - Detail Indication:Annual Medicare Physical (Renamed from Medicare annual wellness visit, subsequent) Start:02-Feb-2019 Instruction Type:Patient Education Patient Instructions Indication:Annual Medicare Physical (Renamed from Medicare annual wellness visit, subsequent) Start:02-Feb-2019 Instruction Type:Provider Instructions for Treatment How to access health informa tion online Indication:Current nonsmoker (Renamed from Current non-smoker) Start:01-Aug-2018 Instruction Type:Patient Education How to access health informa tion online - Detail Indication:Current nonsmoker (Renamed from Current non-smoker) Start:01-Aug-2018 Instruction Type:Patient Education Patient Instructions Indication:Current nonsmoker (Renamed from Current non-smoker) Start:01-Aug-2018 Instruction Type:Provider Instructions for Treatment How to access health informa tion online Indication:Osteoarthritis Start:04-Mar-2018 Instruction Type:Patient Education How to access health informa tion online - Detail Indication:Osteoarthritis Start:04-Mar-2018 Instruction Type:Patient Education Patient Instructions Indication:Osteoarthritis Start:04-Mar-2018 Instruction Type:Provider Instructions for Treatment How to access health informa tion online Indication:Anterior knee pain, left Start:18-Jan-2018 Instruction Type:Patient Education How to access health informa tion online - Detail Indication:Anterior knee pain, left Start:18-Jan-2018 Instruction Type:Patient Education Patient Instructions Indication:Anterior knee pain, left Start:18-Jan-2018 Instruction Type:Provider Instructions for Treatment How to access health informa tion online Indication:BMI 25.0-25.9,adult Start:13-Dec-2017 Instruction Type:Patient Education How to access health informa tion online - Detail Indication:BMI 25.0-25.9,adult Start:13-Dec-2017 Instruction Type:Patient Education Patient Instructions Indication:BMI 25.0-25.9,adult Start:13-Dec-2017 Instruction Type:Provider Instructions for Treatment How to access health informa tion online Indication:Anterior knee pain, left Start:02-Aug-2017 Instruction Type:Patient Education How to access health informa tion online - Detail Indication:Anterior knee pain, left Start:02-Aug-2017 Instruction Type:Patient Education Patient Instructions Indication:Anterior knee pain, left Start:02-Aug-2017 Instruction Type:Provider Instructions for Treatment How to access health informa tion online Indication:Dermatitis of eyelids of both eyes Start:18-Mar-2017 Instruction Type:Patient Education How to access health informa tion online - Detail Indication:Dermatitis of eyelids of both eyes Start:18-Mar-2017 Instruction Type:Patient Education Patient Instructions Indication:Dermatitis of eyelids of both eyes Start:18-Mar-2017 Instruction Type:Provider Instructions for Treatment How to access health informa tion online Indication:Current nonsmoker (Renamed from Current non-smoker) Start:12-Mar-2017 Instruction Type:Patient Education How to access health informa tion online - Detail Indication:Current nonsmoker (Renamed from Current non-smoker) Start:12-Mar-2017 Instruction Type:Patient Education Patient Instructions Indication:Current nonsmoker (Renamed from Current non-smoker) Start:12-Mar-2017 Instruction Type:Provider Instructions for Treatment How to access health informa tion online Indication:Benign neoplasm of skin Start:01-Mar-2017 Instruction Type:Patient Education How to access health informa tion online - Detail Indication:Benign neoplasm of skin Start:01-Mar-2017 Instruction Type:Patient Education Patient Instructions Indication:Benign neoplasm of skin Start:01-Mar-2017 Instruction Type:Provider Instructions for Treatment How to access health informa tion online Indication:BMI 25.0-25.9,adult Start:26-Jan-2017 Instruction Type:Patient Education How to access health informa tion online - Detail Indication:BMI 25.0-25.9,adult Start:26-Jan-2017 Instruction Type:Patient Education Patient Instructions Indication:BMI 25.0-25.9,adult Start:26-Jan-2017 Instruction Type:Provider Instructions for Treatment How to access health informa tion online Indication:Current nonsmoker (Renamed from Current non-smoker) Start:27-Aug-2016 Instruction Type:Patient Education How to access health informa tion online - Detail Indication:Current nonsmoker (Renamed from Current non-smoker) Start:27-Aug-2016 Instruction Type:Patient Education Patient Instructions Indication:Current nonsmoker (Renamed from Current non-smoker) Start:27-Aug-2016 Instruction Type:Provider Instructions for Treatment How to access health informa tion online Indication:Annual Medicare Physical (Renamed from Medicare annual wellness visit, subsequent) Start:12-Jun-2016 Instruction Type:Patient Education How to access health informa tion online - Detail Indication:Annual Medicare Physical (Renamed from Medicare annual wellness visit, subsequent) Start:12-Jun-2016 Instruction Type:Patient Education Patient Instructions Indication:Annual Medicare Physical (Renamed from Medicare annual wellness visit, subsequent) Start:12-Jun-2016 Instruction Type:Provider Instructions for Treatment How to access health informa tion online Indication:Acute ankle pain, left Start:14-Aug-2015 Instruction Type:Patient Education How to access health informa tion online - Detail Indication:Acute ankle pain, left Start:14-Aug-2015 Instruction Type:Patient Education Patient Instructions Indication:Acute ankle pain, left Start:14-Aug-2015 Instruction Type:Provider Instructions for Treatment How to access health informa tion online - Detail Indication:Heartburn Start:07-Jun-2015 Instruction Type:Patient Education How to access health informa tion online Indication:Heartburn Start:07-Jun-2015 Instruction Type:Patient Education Patient Instructions Indication:Heartburn Start:07-Jun-2015 Instruction Type:Provider Instructions for Treatment How to access health informa tion online - Detail Indication:Lumbago with sciatica Start:29-Mar-2015 Instruction Type:Patient Education Patient Instructions Indication:Lumbago with sciatica Start:29-Mar-2015 Instruction Type:Provider Instructions for Treatment Patient Instructions Indication:Myalgia Start:25-Jan-2015 Instruction Type:Provider Instructions for Treatment Patient Instructions Indication:Myalgia Start:10-Jan-2015 Instruction Type:Provider Instructions for Treatment Patient Instructions Indication:Dysuria Start:06-Jun-2014 Instruction Type:Provider Instructions for Treatment Patient Instructions Indication:Rash, drug Start:05-Jan-2014 Instruction Type:Provider Instructions for Treatment Name Dates Details How to access health informa tion online Indication:Current nonsmoker (Renamed from Current non-smoker) Start:28-Jun-2020 Instruction Type:Patient Education How to access health informa tion online - Detail Indication:Current nonsmoker (Renamed from Current non-smoker) Start:28-Jun-2020 Instruction Type:Patient Education Patient Instructions Indication:Current nonsmoker (Renamed from Current non-smoker) Start:28-Jun-2020 Instruction Type:Provider Instructions for Treatment How to access health informa tion online Indication:Abnormal fasting glucose Start:30-Jan-2020 Instruction Type:Patient Education How to access health informa tion online - Detail Indication:Abnormal fasting glucose Start:30-Jan-2020 Instruction Type:Patient Education Patient Instructions Indication:Abnormal fasting glucose Start:30-Jan-2020 Instruction Type:Provider Instructions for Treatment How to access health informa tion online Indication:Annual Medicare Physical (Renamed from Medicare annual wellness visit, subsequent) Start:31-Jul-2019 Instruction Type:Patient Education How to access health informa tion online - Detail Indication:Annual Medicare Physical (Renamed from Medicare annual wellness visit, subsequent) Start:31-Jul-2019 Instruction Type:Patient Education Patient Instructions Indication:Annual Medicare Physical (Renamed from Medicare annual wellness visit, subsequent) Start:31-Jul-2019 Instruction Type:Provider Instructions for Treatment How to access health informa tion online Indication:Annual Medicare Physical (Renamed from Medicare annual wellness visit, subsequent) Start:02-Feb-2019 Instruction Type:Patient Education How to access health informa tion online - Detail Indication:Annual Medicare Physical (Renamed from Medicare annual wellness visit, subsequent) Start:02-Feb-2019 Instruction Type:Patient Education Patient Instructions Indication:Annual Medicare Physical (Renamed from Medicare annual wellness visit, subsequent) Start:02-Feb-2019 Instruction Type:Provider Instructions for Treatment How to access health informa tion online Indication:Current nonsmoker (Renamed from Current non-smoker) Start:01-Aug-2018 Instruction Type:Patient Education How to access health informa tion online - Detail Indication:Current nonsmoker (Renamed from Current non-smoker) Start:01-Aug-2018 Instruction Type:Patient Education Patient Instructions Indication:Current nonsmoker (Renamed from Current non-smoker) Start:01-Aug-2018 Instruction Type:Provider Instructions for Treatment How to access health informa tion online Indication:Osteoarthritis Start:04-Mar-2018 Instruction Type:Patient Education How to access health informa tion online - Detail Indication:Osteoarthritis Start:04-Mar-2018 Instruction Type:Patient Education Patient Instructions Indication:Osteoarthritis Start:04-Mar-2018 Instruction Type:Provider Instructions for Treatment How to access health informa tion online Indication:Anterior knee pain, left Start:18-Jan-2018 Instruction Type:Patient Education How to access health informa tion online - Detail Indication:Anterior knee pain, left Start:18-Jan-2018 Instruction Type:Patient Education Patient Instructions Indication:Anterior knee pain, left Start:18-Jan-2018 Instruction Type:Provider Instructions for Treatment How to access health informa tion online Indication:BMI 25.0-25.9,adult Start:13-Dec-2017 Instruction Type:Patient Education How to access health informa tion online - Detail Indication:BMI 25.0-25.9,adult Start:13-Dec-2017 Instruction Type:Patient Education Patient Instructions Indication:BMI 25.0-25.9,adult Start:13-Dec-2017 Instruction Type:Provider Instructions for Treatment How to access health informa tion online Indication:Anterior knee pain, left Start:02-Aug-2017 Instruction Type:Patient Education How to access health informa tion online - Detail Indication:Anterior knee pain, left Start:02-Aug-2017 Instruction Type:Patient Education Patient Instructions Indication:Anterior knee pain, left Start:02-Aug-2017 Instruction Type:Provider Instructions for Treatment How to access health informa tion online Indication:Dermatitis of eyelids of both eyes Start:18-Mar-2017 Instruction Type:Patient Education How to access health informa tion online - Detail Indication:Dermatitis of eyelids of both eyes Start:18-Mar-2017 Instruction Type:Patient Education Patient Instructions Indication:Dermatitis of eyelids of both eyes Start:18-Mar-2017 Instruction Type:Provider Instructions for Treatment How to access health informa tion online Indication:Current nonsmoker (Renamed from Current non-smoker) Start:12-Mar-2017 Instruction Type:Patient Education How to access health informa tion online - Detail Indication:Current nonsmoker (Renamed from Current non-smoker) Start:12-Mar-2017 Instruction Type:Patient Education Patient Instructions Indication:Current nonsmoker (Renamed from Current non-smoker) Start:12-Mar-2017 Instruction Type:Provider Instructions for Treatment How to access health informa tion online Indication:Benign neoplasm of skin Start:01-Mar-2017 Instruction Type:Patient Education How to access health informa tion online - Detail Indication:Benign neoplasm of skin Start:01-Mar-2017 Instruction Type:Patient Education Patient Instructions Indication:Benign neoplasm of skin Start:01-Mar-2017 Instruction Type:Provider Instructions for Treatment How to access health informa tion online Indication:BMI 25.0-25.9,adult Start:26-Jan-2017 Instruction Type:Patient Education How to access health informa tion online - Detail Indication:BMI 25.0-25.9,adult Start:26-Jan-2017 Instruction Type:Patient Education Patient Instructions Indication:BMI 25.0-25.9,adult Start:26-Jan-2017 Instruction Type:Provider Instructions for Treatment How to access health informa tion online Indication:Current nonsmoker (Renamed from Current non-smoker) Start:27-Aug-2016 Instruction Type:Patient Education How to access health informa tion online - Detail Indication:Current nonsmoker (Renamed from Current non-smoker) Start:27-Aug-2016 Instruction Type:Patient Education Patient Instructions Indication:Current nonsmoker (Renamed from Current non-smoker) Start:27-Aug-2016 Instruction Type:Provider Instructions for Treatment How to access health informa tion online Indication:Annual Medicare Physical (Renamed from Medicare annual wellness visit, subsequent) Start:12-Jun-2016 Instruction Type:Patient Education How to access health informa tion online - Detail Indication:Annual Medicare Physical (Renamed from Medicare annual wellness visit, subsequent) Start:12-Jun-2016 Instruction Type:Patient Education Patient Instructions Indication:Annual Medicare Physical (Renamed from Medicare annual wellness visit, subsequent) Start:12-Jun-2016 Instruction Type:Provider Instructions for Treatment How to access health informa tion online Indication:Acute ankle pain, left Start:14-Aug-2015 Instruction Type:Patient Education How to access health informa tion online - Detail Indication:Acute ankle pain, left Start:14-Aug-2015 Instruction Type:Patient Education Patient Instructions Indication:Acute ankle pain, left Start:14-Aug-2015 Instruction Type:Provider Instructions for Treatment How to access health informa tion online - Detail Indication:Heartburn Start:07-Jun-2015 Instruction Type:Patient Education How to access health informa tion online Indication:Heartburn Start:07-Jun-2015 Instruction Type:Patient Education Patient Instructions Indication:Heartburn Start:07-Jun-2015 Instruction Type:Provider Instructions for Treatment How to access health informa tion online - Detail Indication:Lumbago with sciatica Start:29-Mar-2015 Instruction Type:Patient Education Patient Instructions Indication:Lumbago with sciatica Start:29-Mar-2015 Instruction Type:Provider Instructions for Treatment Patient Instructions Indication:Myalgia Start:25-Jan-2015 Instruction Type:Provider Instructions for Treatment Patient Instructions Indication:Myalgia Start:10-Jan-2015 Instruction Type:Provider Instructions for Treatment Patient Instructions Indication:Dysuria Start:06-Jun-2014 Instruction Type:Provider Instructions for Treatment Patient Instructions Indication:Rash, drug Start:05-Jan-2014 Instruction Type:Provider Instructions for Treatment Name Dates Details How to access health informa tion online Indication:Current nonsmoker (Renamed from Current non-smoker) Start:28-Jun-2020 Instruction Type:Patient Education How to access health informa tion online - Detail Indication:Current nonsmoker (Renamed from Current non-smoker) Start:28-Jun-2020 Instruction Type:Patient Education Patient Instructions Indication:Current nonsmoker (Renamed from Current non-smoker) Start:28-Jun-2020 Instruction Type:Provider Instructions for Treatment How to access health informa tion online Indication:Abnormal fasting glucose Start:30-Jan-2020 Instruction Type:Patient Education How to access health informa tion online - Detail Indication:Abnormal fasting glucose Start:30-Jan-2020 Instruction Type:Patient Education Patient Instructions Indication:Abnormal fasting glucose Start:30-Jan-2020 Instruction Type:Provider Instructions for Treatment How to access health informa tion online Indication:Annual Medicare Physical (Renamed from Medicare annual wellness visit, subsequent) Start:31-Jul-2019 Instruction Type:Patient Education How to access health informa tion online - Detail Indication:Annual Medicare Physical (Renamed from Medicare annual wellness visit, subsequent) Start:31-Jul-2019 Instruction Type:Patient Education Patient Instructions Indication:Annual Medicare Physical (Renamed from Medicare annual wellness visit, subsequent) Start:31-Jul-2019 Instruction Type:Provider Instructions for Treatment How to access health informa tion online Indication:Annual Medicare Physical (Renamed from Medicare annual wellness visit, subsequent) Start:02-Feb-2019 Instruction Type:Patient Education How to access health informa tion online - Detail Indication:Annual Medicare Physical (Renamed from Medicare annual wellness visit, subsequent) Start:02-Feb-2019 Instruction Type:Patient Education Patient Instructions Indication:Annual Medicare Physical (Renamed from Medicare annual wellness visit, subsequent) Start:02-Feb-2019 Instruction Type:Provider Instructions for Treatment How to access health informa tion online Indication:Current nonsmoker (Renamed from Current non-smoker) Start:01-Aug-2018 Instruction Type:Patient Education How to access health informa tion online - Detail Indication:Current nonsmoker (Renamed from Current non-smoker) Start:01-Aug-2018 Instruction Type:Patient Education Patient Instructions Indication:Current nonsmoker (Renamed from Current non-smoker) Start:01-Aug-2018 Instruction Type:Provider Instructions for Treatment How to access health informa tion online Indication:Osteoarthritis Start:04-Mar-2018 Instruction Type:Patient Education How to access health informa tion online - Detail Indication:Osteoarthritis Start:04-Mar-2018 Instruction Type:Patient Education Patient Instructions Indication:Osteoarthritis Start:04-Mar-2018 Instruction Type:Provider Instructions for Treatment How to access health informa tion online Indication:Anterior knee pain, left Start:18-Jan-2018 Instruction Type:Patient Education How to access health informa tion online - Detail Indication:Anterior knee pain, left Start:18-Jan-2018 Instruction Type:Patient Education Patient Instructions Indication:Anterior knee pain, left Start:18-Jan-2018 Instruction Type:Provider Instructions for Treatment How to access health informa tion online Indication:BMI 25.0-25.9,adult Start:13-Dec-2017 Instruction Type:Patient Education How to access health informa tion online - Detail Indication:BMI 25.0-25.9,adult Start:13-Dec-2017 Instruction Type:Patient Education Patient Instructions Indication:BMI 25.0-25.9,adult Start:13-Dec-2017 Instruction Type:Provider Instructions for Treatment How to access health informa tion online Indication:Anterior knee pain, left Start:02-Aug-2017 Instruction Type:Patient Education How to access health informa tion online - Detail Indication:Anterior knee pain, left Start:02-Aug-2017 Instruction Type:Patient Education Patient Instructions Indication:Anterior knee pain, left Start:02-Aug-2017 Instruction Type:Provider Instructions for Treatment How to access health informa tion online Indication:Dermatitis of eyelids of both eyes Start:18-Mar-2017 Instruction Type:Patient Education How to access health informa tion online - Detail Indication:Dermatitis of eyelids of both eyes Start:18-Mar-2017 Instruction Type:Patient Education Patient Instructions Indication:Dermatitis of eyelids of both eyes Start:18-Mar-2017 Instruction Type:Provider Instructions for Treatment How to access health informa tion online Indication:Current nonsmoker (Renamed from Current non-smoker) Start:12-Mar-2017 Instruction Type:Patient Education How to access health informa tion online - Detail Indication:Current nonsmoker (Renamed from Current non-smoker) Start:12-Mar-2017 Instruction Type:Patient Education Patient Instructions Indication:Current nonsmoker (Renamed from Current non-smoker) Start:12-Mar-2017 Instruction Type:Provider Instructions for Treatment How to access health informa tion online Indication:Benign neoplasm of skin Start:01-Mar-2017 Instruction Type:Patient Education How to access health informa tion online - Detail Indication:Benign neoplasm of skin Start:01-Mar-2017 Instruction Type:Patient Education Patient Instructions Indication:Benign neoplasm of skin Start:01-Mar-2017 Instruction Type:Provider Instructions for Treatment How to access health informa tion online Indication:BMI 25.0-25.9,adult Start:26-Jan-2017 Instruction Type:Patient Education How to access health informa tion online - Detail Indication:BMI 25.0-25.9,adult Start:26-Jan-2017 Instruction Type:Patient Education Patient Instructions Indication:BMI 25.0-25.9,adult Start:26-Jan-2017 Instruction Type:Provider Instructions for Treatment How to access health informa tion online Indication:Current nonsmoker (Renamed from Current non-smoker) Start:27-Aug-2016 Instruction Type:Patient Education How to access health informa tion online - Detail Indication:Current nonsmoker (Renamed from Current non-smoker) Start:27-Aug-2016 Instruction Type:Patient Education Patient Instructions Indication:Current nonsmoker (Renamed from Current non-smoker) Start:27-Aug-2016 Instruction Type:Provider Instructions for Treatment How to access health informa tion online Indication:Annual Medicare Physical (Renamed from Medicare annual wellness visit, subsequent) Start:12-Jun-2016 Instruction Type:Patient Education How to access health informa tion online - Detail Indication:Annual Medicare Physical (Renamed from Medicare annual wellness visit, subsequent) Start:12-Jun-2016 Instruction Type:Patient Education Patient Instructions Indication:Annual Medicare Physical (Renamed from Medicare annual wellness visit, subsequent) Start:12-Jun-2016 Instruction Type:Provider Instructions for Treatment How to access health informa tion online Indication:Acute ankle pain, left Start:14-Aug-2015 Instruction Type:Patient Education How to access health informa tion online - Detail Indication:Acute ankle pain, left Start:14-Aug-2015 Instruction Type:Patient Education Patient Instructions Indication:Acute ankle pain, left Start:14-Aug-2015 Instruction Type:Provider Instructions for Treatment How to access health informa tion online - Detail Indication:Heartburn Start:07-Jun-2015 Instruction Type:Patient Education How to access health informa tion online Indication:Heartburn Start:07-Jun-2015 Instruction Type:Patient Education Patient Instructions Indication:Heartburn Start:07-Jun-2015 Instruction Type:Provider Instructions for Treatment How to access health informa tion online - Detail Indication:Lumbago with sciatica Start:29-Mar-2015 Instruction Type:Patient Education Patient Instructions Indication:Lumbago with sciatica Start:29-Mar-2015 Instruction Type:Provider Instructions for Treatment Patient Instructions Indication:Myalgia Start:25-Jan-2015 Instruction Type:Provider Instructions for Treatment Patient Instructions Indication:Myalgia Start:10-Jan-2015 Instruction Type:Provider Instructions for Treatment Patient Instructions Indication:Dysuria Start:06-Jun-2014 Instruction Type:Provider Instructions for Treatment Patient Instructions Indication:Rash, drug Start:05-Jan-2014 Instruction Type:Provider Instructions for Treatment Name Dates Details How to access health informa tion online Indication:Current nonsmoker (Renamed from Current non-smoker) Start:28-Jun-2020 Instruction Type:Patient Education How to access health informa tion online - Detail Indication:Current nonsmoker (Renamed from Current non-smoker) Start:28-Jun-2020 Instruction Type:Patient Education Patient Instructions Indication:Current nonsmoker (Renamed from Current non-smoker) Start:28-Jun-2020 Instruction Type:Provider Instructions for Treatment How to access health informa tion online Indication:Abnormal fasting glucose Start:30-Jan-2020 Instruction Type:Patient Education How to access health informa tion online - Detail Indication:Abnormal fasting glucose Start:30-Jan-2020 Instruction Type:Patient Education Patient Instructions Indication:Abnormal fasting glucose Start:30-Jan-2020 Instruction Type:Provider Instructions for Treatment How to access health informa tion online Indication:Annual Medicare Physical (Renamed from Medicare annual wellness visit, subsequent) Start:31-Jul-2019 Instruction Type:Patient Education How to access health informa tion online - Detail Indication:Annual Medicare Physical (Renamed from Medicare annual wellness visit, subsequent) Start:31-Jul-2019 Instruction Type:Patient Education Patient Instructions Indication:Annual Medicare Physical (Renamed from Medicare annual wellness visit, subsequent) Start:31-Jul-2019 Instruction Type:Provider Instructions for Treatment How to access health informa tion online Indication:Annual Medicare Physical (Renamed from Medicare annual wellness visit, subsequent) Start:02-Feb-2019 Instruction Type:Patient Education How to access health informa tion online - Detail Indication:Annual Medicare Physical (Renamed from Medicare annual wellness visit, subsequent) Start:02-Feb-2019 Instruction Type:Patient Education Patient Instructions Indication:Annual Medicare Physical (Renamed from Medicare annual wellness visit, subsequent) Start:02-Feb-2019 Instruction Type:Provider Instructions for Treatment How to access health informa tion online Indication:Current nonsmoker (Renamed from Current non-smoker) Start:01-Aug-2018 Instruction Type:Patient Education How to access health informa tion online - Detail Indication:Current nonsmoker (Renamed from Current non-smoker) Start:01-Aug-2018 Instruction Type:Patient Education Patient Instructions Indication:Current nonsmoker (Renamed from Current non-smoker) Start:01-Aug-2018 Instruction Type:Provider Instructions for Treatment How to access health informa tion online Indication:Osteoarthritis Start:04-Mar-2018 Instruction Type:Patient Education How to access health informa tion online - Detail Indication:Osteoarthritis Start:04-Mar-2018 Instruction Type:Patient Education Patient Instructions Indication:Osteoarthritis Start:04-Mar-2018 Instruction Type:Provider Instructions for Treatment How to access health informa tion online Indication:Anterior knee pain, left Start:18-Jan-2018 Instruction Type:Patient Education How to access health informa tion online - Detail Indication:Anterior knee pain, left Start:18-Jan-2018 Instruction Type:Patient Education Patient Instructions Indication:Anterior knee pain, left Start:18-Jan-2018 Instruction Type:Provider Instructions for Treatment How to access health informa tion online Indication:BMI 25.0-25.9,adult Start:13-Dec-2017 Instruction Type:Patient Education How to access health informa tion online - Detail Indication:BMI 25.0-25.9,adult Start:13-Dec-2017 Instruction Type:Patient Education Patient Instructions Indication:BMI 25.0-25.9,adult Start:13-Dec-2017 Instruction Type:Provider Instructions for Treatment How to access health informa tion online Indication:Anterior knee pain, left Start:02-Aug-2017 Instruction Type:Patient Education How to access health informa tion online - Detail Indication:Anterior knee pain, left Start:02-Aug-2017 Instruction Type:Patient Education Patient Instructions Indication:Anterior knee pain, left Start:02-Aug-2017 Instruction Type:Provider Instructions for Treatment How to access health informa tion online Indication:Dermatitis of eyelids of both eyes Start:18-Mar-2017 Instruction Type:Patient Education How to access health informa tion online - Detail Indication:Dermatitis of eyelids of both eyes Start:18-Mar-2017 Instruction Type:Patient Education Patient Instructions Indication:Dermatitis of eyelids of both eyes Start:18-Mar-2017 Instruction Type:Provider Instructions for Treatment How to access health informa tion online Indication:Current nonsmoker (Renamed from Current non-smoker) Start:12-Mar-2017 Instruction Type:Patient Education How to access health informa tion online - Detail Indication:Current nonsmoker (Renamed from Current non-smoker) Start:12-Mar-2017 Instruction Type:Patient Education Patient Instructions Indication:Current nonsmoker (Renamed from Current non-smoker) Start:12-Mar-2017 Instruction Type:Provider Instructions for Treatment How to access health informa tion online Indication:Benign neoplasm of skin Start:01-Mar-2017 Instruction Type:Patient Education How to access health informa tion online - Detail Indication:Benign neoplasm of skin Start:01-Mar-2017 Instruction Type:Patient Education Patient Instructions Indication:Benign neoplasm of skin Start:01-Mar-2017 Instruction Type:Provider Instructions for Treatment How to access health informa tion online Indication:BMI 25.0-25.9,adult Start:26-Jan-2017 Instruction Type:Patient Education How to access health informa tion online - Detail Indication:BMI 25.0-25.9,adult Start:26-Jan-2017 Instruction Type:Patient Education Patient Instructions Indication:BMI 25.0-25.9,adult Start:26-Jan-2017 Instruction Type:Provider Instructions for Treatment How to access health informa tion online Indication:Current nonsmoker (Renamed from Current non-smoker) Start:27-Aug-2016 Instruction Type:Patient Education How to access health informa tion online - Detail Indication:Current nonsmoker (Renamed from Current non-smoker) Start:27-Aug-2016 Instruction Type:Patient Education Patient Instructions Indication:Current nonsmoker (Renamed from Current non-smoker) Start:27-Aug-2016 Instruction Type:Provider Instructions for Treatment How to access health informa tion online Indication:Annual Medicare Physical (Renamed from Medicare annual wellness visit, subsequent) Start:12-Jun-2016 Instruction Type:Patient Education How to access health informa tion online - Detail Indication:Annual Medicare Physical (Renamed from Medicare annual wellness visit, subsequent) Start:12-Jun-2016 Instruction Type:Patient Education Patient Instructions Indication:Annual Medicare Physical (Renamed from Medicare annual wellness visit, subsequent) Start:12-Jun-2016 Instruction Type:Provider Instructions for Treatment How to access health informa tion online Indication:Acute ankle pain, left Start:14-Aug-2015 Instruction Type:Patient Education How to access health informa tion online - Detail Indication:Acute ankle pain, left Start:14-Aug-2015 Instruction Type:Patient Education Patient Instructions Indication:Acute ankle pain, left Start:14-Aug-2015 Instruction Type:Provider Instructions for Treatment How to access health informa tion online - Detail Indication:Heartburn Start:07-Jun-2015 Instruction Type:Patient Education How to access health informa tion online Indication:Heartburn Start:07-Jun-2015 Instruction Type:Patient Education Patient Instructions Indication:Heartburn Start:07-Jun-2015 Instruction Type:Provider Instructions for Treatment How to access health informa tion online - Detail Indication:Lumbago with sciatica Start:29-Mar-2015 Instruction Type:Patient Education Patient Instructions Indication:Lumbago with sciatica Start:29-Mar-2015 Instruction Type:Provider Instructions for Treatment Patient Instructions Indication:Myalgia Start:25-Jan-2015 Instruction Type:Provider Instructions for Treatment Patient Instructions Indication:Myalgia Start:10-Jan-2015 Instruction Type:Provider Instructions for Treatment Patient Instructions Indication:Dysuria Start:06-Jun-2014 Instruction Type:Provider Instructions for Treatment Patient Instructions Indication:Rash, drug Start:05-Jan-2014 Instruction Type:Provider Instructions for Treatment Name Dates Details How to access health informa tion online Indication:Current nonsmoker (Renamed from Current non-smoker) Start:28-Jun-2020 Instruction Type:Patient Education How to access health informa tion online - Detail Indication:Current nonsmoker (Renamed from Current non-smoker) Start:28-Jun-2020 Instruction Type:Patient Education Patient Instructions Indication:Current nonsmoker (Renamed from Current non-smoker) Start:28-Jun-2020 Instruction Type:Provider Instructions for Treatment How to access health informa tion online Indication:Abnormal fasting glucose Start:30-Jan-2020 Instruction Type:Patient Education How to access health informa tion online - Detail Indication:Abnormal fasting glucose Start:30-Jan-2020 Instruction Type:Patient Education Patient Instructions Indication:Abnormal fasting glucose Start:30-Jan-2020 Instruction Type:Provider Instructions for Treatment How to access health informa tion online Indication:Annual Medicare Physical (Renamed from Medicare annual wellness visit, subsequent) Start:31-Jul-2019 Instruction Type:Patient Education How to access health informa tion online - Detail Indication:Annual Medicare Physical (Renamed from Medicare annual wellness visit, subsequent) Start:31-Jul-2019 Instruction Type:Patient Education Patient Instructions Indication:Annual Medicare Physical (Renamed from Medicare annual wellness visit, subsequent) Start:31-Jul-2019 Instruction Type:Provider Instructions for Treatment How to access health informa tion online Indication:Annual Medicare Physical (Renamed from Medicare annual wellness visit, subsequent) Start:02-Feb-2019 Instruction Type:Patient Education How to access health informa tion online - Detail Indication:Annual Medicare Physical (Renamed from Medicare annual wellness visit, subsequent) Start:02-Feb-2019 Instruction Type:Patient Education Patient Instructions Indication:Annual Medicare Physical (Renamed from Medicare annual wellness visit, subsequent) Start:02-Feb-2019 Instruction Type:Provider Instructions for Treatment How to access health informa tion online Indication:Current nonsmoker (Renamed from Current non-smoker) Start:01-Aug-2018 Instruction Type:Patient Education How to access health informa tion online - Detail Indication:Current nonsmoker (Renamed from Current non-smoker) Start:01-Aug-2018 Instruction Type:Patient Education Patient Instructions Indication:Current nonsmoker (Renamed from Current non-smoker) Start:01-Aug-2018 Instruction Type:Provider Instructions for Treatment How to access health informa tion online Indication:Osteoarthritis Start:04-Mar-2018 Instruction Type:Patient Education How to access health informa tion online - Detail Indication:Osteoarthritis Start:04-Mar-2018 Instruction Type:Patient Education Patient Instructions Indication:Osteoarthritis Start:04-Mar-2018 Instruction Type:Provider Instructions for Treatment How to access health informa tion online Indication:Anterior knee pain, left Start:18-Jan-2018 Instruction Type:Patient Education How to access health informa tion online - Detail Indication:Anterior knee pain, left Start:18-Jan-2018 Instruction Type:Patient Education Patient Instructions Indication:Anterior knee pain, left Start:18-Jan-2018 Instruction Type:Provider Instructions for Treatment How to access health informa tion online Indication:BMI 25.0-25.9,adult Start:13-Dec-2017 Instruction Type:Patient Education How to access health informa tion online - Detail Indication:BMI 25.0-25.9,adult Start:13-Dec-2017 Instruction Type:Patient Education Patient Instructions Indication:BMI 25.0-25.9,adult Start:13-Dec-2017 Instruction Type:Provider Instructions for Treatment How to access health informa tion online Indication:Anterior knee pain, left Start:02-Aug-2017 Instruction Type:Patient Education How to access health informa tion online - Detail Indication:Anterior knee pain, left Start:02-Aug-2017 Instruction Type:Patient Education Patient Instructions Indication:Anterior knee pain, left Start:02-Aug-2017 Instruction Type:Provider Instructions for Treatment How to access health informa tion online Indication:Dermatitis of eyelids of both eyes Start:18-Mar-2017 Instruction Type:Patient Education How to access health informa tion online - Detail Indication:Dermatitis of eyelids of both eyes Start:18-Mar-2017 Instruction Type:Patient Education Patient Instructions Indication:Dermatitis of eyelids of both eyes Start:18-Mar-2017 Instruction Type:Provider Instructions for Treatment How to access health informa tion online Indication:Current nonsmoker (Renamed from Current non-smoker) Start:12-Mar-2017 Instruction Type:Patient Education How to access health informa tion online - Detail Indication:Current nonsmoker (Renamed from Current non-smoker) Start:12-Mar-2017 Instruction Type:Patient Education Patient Instructions Indication:Current nonsmoker (Renamed from Current non-smoker) Start:12-Mar-2017 Instruction Type:Provider Instructions for Treatment How to access health informa tion online Indication:Benign neoplasm of skin Start:01-Mar-2017 Instruction Type:Patient Education How to access health informa tion online - Detail Indication:Benign neoplasm of skin Start:01-Mar-2017 Instruction Type:Patient Education Patient Instructions Indication:Benign neoplasm of skin Start:01-Mar-2017 Instruction Type:Provider Instructions for Treatment How to access health informa tion online Indication:BMI 25.0-25.9,adult Start:26-Jan-2017 Instruction Type:Patient Education How to access health informa tion online - Detail Indication:BMI 25.0-25.9,adult Start:26-Jan-2017 Instruction Type:Patient Education Patient Instructions Indication:BMI 25.0-25.9,adult Start:26-Jan-2017 Instruction Type:Provider Instructions for Treatment How to access health informa tion online Indication:Current nonsmoker (Renamed from Current non-smoker) Start:27-Aug-2016 Instruction Type:Patient Education How to access health informa tion online - Detail Indication:Current nonsmoker (Renamed from Current non-smoker) Start:27-Aug-2016 Instruction Type:Patient Education Patient Instructions Indication:Current nonsmoker (Renamed from Current non-smoker) Start:27-Aug-2016 Instruction Type:Provider Instructions for Treatment How to access health informa tion online Indication:Annual Medicare Physical (Renamed from Medicare annual wellness visit, subsequent) Start:12-Jun-2016 Instruction Type:Patient Education How to access health informa tion online - Detail Indication:Annual Medicare Physical (Renamed from Medicare annual wellness visit, subsequent) Start:12-Jun-2016 Instruction Type:Patient Education Patient Instructions Indication:Annual Medicare Physical (Renamed from Medicare annual wellness visit, subsequent) Start:12-Jun-2016 Instruction Type:Provider Instructions for Treatment How to access health informa tion online Indication:Acute ankle pain, left Start:14-Aug-2015 Instruction Type:Patient Education How to access health informa tion online - Detail Indication:Acute ankle pain, left Start:14-Aug-2015 Instruction Type:Patient Education Patient Instructions Indication:Acute ankle pain, left Start:14-Aug-2015 Instruction Type:Provider Instructions for Treatment How to access health informa tion online - Detail Indication:Heartburn Start:07-Jun-2015 Instruction Type:Patient Education How to access health informa tion online Indication:Heartburn Start:07-Jun-2015 Instruction Type:Patient Education Patient Instructions Indication:Heartburn Start:07-Jun-2015 Instruction Type:Provider Instructions for Treatment How to access health informa tion online - Detail Indication:Lumbago with sciatica Start:29-Mar-2015 Instruction Type:Patient Education Patient Instructions Indication:Lumbago with sciatica Start:29-Mar-2015 Instruction Type:Provider Instructions for Treatment Patient Instructions Indication:Myalgia Start:25-Jan-2015 Instruction Type:Provider Instructions for Treatment Patient Instructions Indication:Myalgia Start:10-Jan-2015 Instruction Type:Provider Instructions for Treatment Patient Instructions Indication:Dysuria Start:06-Jun-2014 Instruction Type:Provider Instructions for Treatment Patient Instructions Indication:Rash, drug Start:05-Jan-2014 Instruction Type:Provider Instructions for Treatment Name Dates Details How to access health informa tion online Indication:Current nonsmoker (Renamed from Current non-smoker) Start:28-Jun-2020 Instruction Type:Patient Education How to access health informa tion online - Detail Indication:Current nonsmoker (Renamed from Current non-smoker) Start:28-Jun-2020 Instruction Type:Patient Education Patient Instructions Indication:Current nonsmoker (Renamed from Current non-smoker) Start:28-Jun-2020 Instruction Type:Provider Instructions for Treatment How to access health informa tion online Indication:Abnormal fasting glucose Start:30-Jan-2020 Instruction Type:Patient Education How to access health informa tion online - Detail Indication:Abnormal fasting glucose Start:30-Jan-2020 Instruction Type:Patient Education Patient Instructions Indication:Abnormal fasting glucose Start:30-Jan-2020 Instruction Type:Provider Instructions for Treatment How to access health informa tion online Indication:Annual Medicare Physical (Renamed from Medicare annual wellness visit, subsequent) Start:31-Jul-2019 Instruction Type:Patient Education How to access health informa tion online - Detail Indication:Annual Medicare Physical (Renamed from Medicare annual wellness visit, subsequent) Start:31-Jul-2019 Instruction Type:Patient Education Patient Instructions Indication:Annual Medicare Physical (Renamed from Medicare annual wellness visit, subsequent) Start:31-Jul-2019 Instruction Type:Provider Instructions for Treatment How to access health informa tion online Indication:Annual Medicare Physical (Renamed from Medicare annual wellness visit, subsequent) Start:02-Feb-2019 Instruction Type:Patient Education How to access health informa tion online - Detail Indication:Annual Medicare Physical (Renamed from Medicare annual wellness visit, subsequent) Start:02-Feb-2019 Instruction Type:Patient Education Patient Instructions Indication:Annual Medicare Physical (Renamed from Medicare annual wellness visit, subsequent) Start:02-Feb-2019 Instruction Type:Provider Instructions for Treatment How to access health informa tion online Indication:Current nonsmoker (Renamed from Current non-smoker) Start:01-Aug-2018 Instruction Type:Patient Education How to access health informa tion online - Detail Indication:Current nonsmoker (Renamed from Current non-smoker) Start:01-Aug-2018 Instruction Type:Patient Education Patient Instructions Indication:Current nonsmoker (Renamed from Current non-smoker) Start:01-Aug-2018 Instruction Type:Provider Instructions for Treatment How to access health informa tion online Indication:Osteoarthritis Start:04-Mar-2018 Instruction Type:Patient Education How to access health informa tion online - Detail Indication:Osteoarthritis Start:04-Mar-2018 Instruction Type:Patient Education Patient Instructions Indication:Osteoarthritis Start:04-Mar-2018 Instruction Type:Provider Instructions for Treatment How to access health informa tion online Indication:Anterior knee pain, left Start:18-Jan-2018 Instruction Type:Patient Education How to access health informa tion online - Detail Indication:Anterior knee pain, left Start:18-Jan-2018 Instruction Type:Patient Education Patient Instructions Indication:Anterior knee pain, left Start:18-Jan-2018 Instruction Type:Provider Instructions for Treatment How to access health informa tion online Indication:BMI 25.0-25.9,adult Start:13-Dec-2017 Instruction Type:Patient Education How to access health informa tion online - Detail Indication:BMI 25.0-25.9,adult Start:13-Dec-2017 Instruction Type:Patient Education Patient Instructions Indication:BMI 25.0-25.9,adult Start:13-Dec-2017 Instruction Type:Provider Instructions for Treatment How to access health informa tion online Indication:Anterior knee pain, left Start:02-Aug-2017 Instruction Type:Patient Education How to access health informa tion online - Detail Indication:Anterior knee pain, left Start:02-Aug-2017 Instruction Type:Patient Education Patient Instructions Indication:Anterior knee pain, left Start:02-Aug-2017 Instruction Type:Provider Instructions for Treatment How to access health informa tion online Indication:Dermatitis of eyelids of both eyes Start:18-Mar-2017 Instruction Type:Patient Education How to access health informa tion online - Detail Indication:Dermatitis of eyelids of both eyes Start:18-Mar-2017 Instruction Type:Patient Education Patient Instructions Indication:Dermatitis of eyelids of both eyes Start:18-Mar-2017 Instruction Type:Provider Instructions for Treatment How to access health informa tion online Indication:Current nonsmoker (Renamed from Current non-smoker) Start:12-Mar-2017 Instruction Type:Patient Education How to access health informa tion online - Detail Indication:Current nonsmoker (Renamed from Current non-smoker) Start:12-Mar-2017 Instruction Type:Patient Education Patient Instructions Indication:Current nonsmoker (Renamed from Current non-smoker) Start:12-Mar-2017 Instruction Type:Provider Instructions for Treatment How to access health informa tion online Indication:Benign neoplasm of skin Start:01-Mar-2017 Instruction Type:Patient Education How to access health informa tion online - Detail Indication:Benign neoplasm of skin Start:01-Mar-2017 Instruction Type:Patient Education Patient Instructions Indication:Benign neoplasm of skin Start:01-Mar-2017 Instruction Type:Provider Instructions for Treatment How to access health informa tion online Indication:BMI 25.0-25.9,adult Start:26-Jan-2017 Instruction Type:Patient Education How to access health informa tion online - Detail Indication:BMI 25.0-25.9,adult Start:26-Jan-2017 Instruction Type:Patient Education Patient Instructions Indication:BMI 25.0-25.9,adult Start:26-Jan-2017 Instruction Type:Provider Instructions for Treatment How to access health informa tion online Indication:Current nonsmoker (Renamed from Current non-smoker) Start:27-Aug-2016 Instruction Type:Patient Education How to access health informa tion online - Detail Indication:Current nonsmoker (Renamed from Current non-smoker) Start:27-Aug-2016 Instruction Type:Patient Education Patient Instructions Indication:Current nonsmoker (Renamed from Current non-smoker) Start:27-Aug-2016 Instruction Type:Provider Instructions for Treatment How to access health informa tion online Indication:Annual Medicare Physical (Renamed from Medicare annual wellness visit, subsequent) Start:12-Jun-2016 Instruction Type:Patient Education How to access health informa tion online - Detail Indication:Annual Medicare Physical (Renamed from Medicare annual wellness visit, subsequent) Start:12-Jun-2016 Instruction Type:Patient Education Patient Instructions Indication:Annual Medicare Physical (Renamed from Medicare annual wellness visit, subsequent) Start:12-Jun-2016 Instruction Type:Provider Instructions for Treatment How to access health informa tion online Indication:Acute ankle pain, left Start:14-Aug-2015 Instruction Type:Patient Education How to access health informa tion online - Detail Indication:Acute ankle pain, left Start:14-Aug-2015 Instruction Type:Patient Education Patient Instructions Indication:Acute ankle pain, left Start:14-Aug-2015 Instruction Type:Provider Instructions for Treatment How to access health informa tion online - Detail Indication:Heartburn Start:07-Jun-2015 Instruction Type:Patient Education How to access health informa tion online Indication:Heartburn Start:07-Jun-2015 Instruction Type:Patient Education Patient Instructions Indication:Heartburn Start:07-Jun-2015 Instruction Type:Provider Instructions for Treatment How to access health informa tion online - Detail Indication:Lumbago with sciatica Start:29-Mar-2015 Instruction Type:Patient Education Patient Instructions Indication:Lumbago with sciatica Start:29-Mar-2015 Instruction Type:Provider Instructions for Treatment Patient Instructions Indication:Myalgia Start:25-Jan-2015 Instruction Type:Provider Instructions for Treatment Patient Instructions Indication:Myalgia Start:10-Jan-2015 Instruction Type:Provider Instructions for Treatment Patient Instructions Indication:Dysuria Start:06-Jun-2014 Instruction Type:Provider Instructions for Treatment Patient Instructions Indication:Rash, drug Start:05-Jan-2014 Instruction Type:Provider Instructions for Treatment Advance Directives No Advanced Directives Records Found Name Dates Details Immunization Registry [place] - Effective on 07/08/2018. Expiration date unspecified Effective:08-Jul-2018 Name Dates Details Immunization Registry [place] - Effective on 07/08/2018. Expiration date unspecified Effective:08-Jul-2018 Name Dates Details Immunization Registry [place] - Effective on 07/08/2018. Expiration date unspecified Effective:08-Jul-2018 Name Dates Details Immunization Registry [place] - Effective on 07/08/2018. Expiration date unspecified Effective:08-Jul-2018 Name Dates Details Immunization Registry [place] - Effective on 07/08/2018. Expiration date unspecified Effective:08-Jul-2018 Name Dates Details Immunization Registry [place] - Effective on 07/08/2018. Expiration date unspecified Effective:08-Jul-2018 Name Dates Details Immunization Registry [place] - Effective on 07/08/2018. Expiration date unspecified Effective:08-Jul-2018 Name Dates Details Immunization Registry [place] - Effective on 07/08/2018. Expiration date unspecified Effective:08-Jul-2018 Name Dates Details Immunization Registry [place] - Effective on 07/08/2018. Expiration date unspecified Effective:08-Jul-2018 Name Dates Details Immunization Registry [place] - Effective on 07/08/2018. Expiration date unspecified Effective:08-Jul-2018 Name Dates Details Immunization Registry [place] - Effective on 07/08/2018. Expiration date unspecified Effective:08-Jul-2018 Name Dates Details Immunization Registry [place] - Effective on 07/08/2018. Expiration date unspecified Effective:08-Jul-2018 Name Dates Details Immunization Registry [place] - Effective on 07/08/2018. Expiration date unspecified Effective:08-Jul-2018 Name Dates Details Immunization Registry [place] - Effective on 07/08/2018. Expiration date unspecified Effective:08-Jul-2018 Name Dates Details Immunization Registry [place] - Effective on 07/08/2018. Expiration date unspecified Effective:08-Jul-2018 Name Dates Details Immunization Registry [place] - Effective on 07/08/2018. Expiration date unspecified Effective:08-Jul-2018 Name Dates Details Immunization Registry [place] - Effective on 07/08/2018. Expiration date unspecified Effective:08-Jul-2018 Name Dates Details Immunization Registry [place] - Effective on 07/08/2018. Expiration date unspecified Effective:08-Jul-2018 Name Dates Details Immunization Registry [place] - Effective on 07/08/2018. Expiration date unspecified Effective:08-Jul-2018 Advance Directive Response Recorded Date/ Time Advance Directives Yes January 21 0 9:29am Living Will Yes February 08, 2021 5 :52am Power of Pot Puller Yes February 08, 2021 5:52am Name Dates Details Immunization Registry [place] - Effective on 07/08/2018. Expiration date unspecified Effective:08-Jul-2018 Name Dates Details Immunization Registry [place] - Effective on 07/08/2018. Expiration date unspecified Effective:08-Jul-2018 Name Dates Details Immunization Registry [place] - Effective on 07/08/2018. Expiration date unspecified Effective:08-Jul-2018 Name Dates Details Immunization Registry [place] - Effective on 07/08/2018. Expiration date unspecified Effective:08-Jul-2018 Name Dates Details Immunization Registry [place] - Effective on 07/08/2018. Expiration date unspecified Effective:08-Jul-2018 Name Dates Details Immunization Registry [place] - Effective on 07/08/2018. Expiration date unspecified Effective:08-Jul-2018 Advance Directive Response Recorded Date/ Time Advance Directives Yes January 21 0 8:29am Living Will Yes February 08, 2021 4 :52am Power of Pot Puller Yes February 08, 2021 4:52am Name Dates Details Immunization Registry [place] - Effective on 07/08/2018. Expiration date unspecified Effective:08-Jul-2018 Name Dates Details Immunization Registry [place] - Effective on 07/08/2018. Expiration date unspecified Effective:08-Jul-2018 Name Dates Details Immunization Registry [place] - Effective on 07/08/2018. Expiration date unspecified Effective:08-Jul-2018 Name Dates Details Immunization Registry [place] - Effective on 07/08/2018. Expiration date unspecified Effective:08-Jul-2018 Name Dates Details Immunization Registry [place] - Effective on 07/08/2018. Expiration date unspecified Effective:08-Jul-2018 Name Dates Details Immunization Registry [place] - Effective on 07/08/2018. Expiration date unspecified Effective:08-Jul-2018 Name Dates Details Immunization Registry [place] - Effective on 07/08/2018. Expiration date unspecified Effective:08-Jul-2018 Advance Directive Response Recorded Date/ Time Living Will Yes September 26 4:07pm Do you have a Healthcare Power of Pot Puller? Yes September 26, 2024 4:07pm Name of Medical Power of Pot Puller DTR September 26, 2024 4:07pm Advance Directives Yes January 21 9:29am Advance Directive Response Recorded Date/ Time Advance Directives Yes January 21 9:29am Advance Directive Response Recorded Date/ Time Living Will Yes February 08, 2021 5 :52am Do you have a Healthcare Power of Pot Puller? Yes February 08, 2021 5:52am Advance Directives Yes January 21 9:29am Chief Complaint and Reason for Visit Chief Complaint LEFT FOOT FRACTURE Chief Complaint LEFT FOOT FRACTURE SCREENING Chief Complaint LOW BACK PAIN/MID BA CK PAIN Chief Complaint SCREEN SCREEN Chief Complaint Admit Date SCREENING January 10, 2025 10:30a m ABNORMAL BI January 22, 2025 9:07a m Reason for Visit Admit Date Colitis September 29, 2024 1 2:52pm Chief Complaint Admit Date SCREENING January 10, 2025 10:30a m ABNORMAL BI January 22, 2025 9:07a m CAD March 15, 2025 1:49 pm Chief Complaint Admit Date SCREENING January 10, 2025 10:30a m ABNORMAL BI January 22, 2025 9:07a m CAD March 15, 2025 1:49 pm 1 Y FU March 29, 2025 1:52 pm Chief Complaint Admit Date SCREENING January 10, 2025 10:30a m ABNORMAL BI January 22, 2025 9:07a m CAD March 15, 2025 1:49 pm 1 Y FU March 29, 2025 1:52 pm Parkinson's disease April 03, 2025 1:15 pm Reason for Visit Admit Date Essential (primary) hypertension March 292024 1:52pm HLD (hyperlipidemia) March 29, 2025 1:5 2pm H/O coronary artery bypass surgery March 29, 2025 1:52pm Parkinson's disease April 03, 2025 1:15 pm Chief Complaint Admit Date CAD March 15, 2025 1:49 pm 1 Y FU March 29, 2025 1:52 pm Parkinson's disease April 03, 2025 1:15 pm [facility] June 11, 2025 11 :00am 3 M FU June 11, 2025 12 :55pm Reason for Visit Admit Date Essential (primary) hypertension March 292024 1:52pm HLD (hyperlipidemia) March 29, 2025 1:5 2pm H/O coronary artery bypass surgery March 29, 2025 1:52pm Parkinson's disease April 03, 2025 1:15 pm Parkinson's disease without dyskinesia or fluctuating manifestations June 11, 2025 12:55pm Summary Purpose Reason for Referral Specialty Diagnoses / Procedures Referred By Contac t Referred To Contact MR IMAGING Diagnoses Intracranial meningioma (HCC) Benign neoplasm of meninges (HCC) Procedures MRI BRAIN WO/W IVCON MRI BRAIN BRAIN STEM W/O W/CONTRAST MATERIAL Ariane Tolentino, 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.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 [address] [place] [address] Mr Imaging [id number] Referral ID Status Reason Start Date Expiration Date Visits Requested Visits Authorized [id number] New Request Auto-Generat ed Referral 10/10/2024 11/09/2025 1 1 Specialty Diagnoses / Procedures Referred By Contac t Referred To Contact MR IMAGING Diagnoses Intracranial meningioma (HCC) Benign neoplasm of meninges (HCC) Procedures MRI BRAIN WO/W IVCON MRI BRAIN BRAIN STEM W/O W/CONTRAST MATERIAL Jerzy Glass MD [address] [facility] [facility] [address] Mr Imaging [id number] Referral ID Status Reason Start Date Expiration Date Visits Requested Visits Authorized [id number] New Request Auto-Generat ed Referral 10/10/2024 11/08/2025 1 1 Additional Source Comments Goals (unrecognized section and content) Goals may be documented in a n alternate sectionGoals may be documented in an alternate sectionGoals may be documented in an alternate sectionGoals may be documented in an alternate sectionGoals may be documented in an alternate sectionGoals may be documented in an alternate sectionGoals may be documented in an alternate sectionGoals may be documented in an alternate sectionGoals may be documented in an alternate sectionGoals may be documented in an alternate sectionGoals may be documented in an alternate sectionGoals may be documented in an alternate section Care Teams (unrecognized sec tion and content) Team Status: Active Member Role Status Dates Dr. Joyce Roe MD Family Provider Active Dr. Joyce Roe MD Primary Care Provider Active Team Status: Inactive Member Role Status Dates Dr. Joyce Roe MD Primary Care Provi carlos, Attending Provider, Referring Provider Active Team Status: Active Member Role Status Dates Dr. 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 - General Wafer Cleaner 09/30/24 [employer] Relationship Specialty Start Date End Date Joyce Roe MD [address] [facility] [address] [place] [address] PCP - General Internal Medicine 10/10/24 [employer] Relationship Specialty Start Date End Date Joyce Roe MD [address] [facility] [address] [place] [address] PCP - General Internal Medicine 10/10/24 [employer]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 Joyce Roe MD Primary Care Provider Active Team Status: Inactive Member Role Status Dates Dr. Joyce Roe MD Primary Care Provider Active Start: September 29, 2024 End: September 29, 2024 Dr. Joyce Roe MD Referring Provider Active Start: September 29, 2024 End: September 29, 2024 Dr. Abdi Choi DO Attending Provider Active Start: September 29, 2024 End: September 29, 2024 Team Status: Active Member Role Status Dates Dr. oJyce Roe MD Primary Care Provider Active Start: September 29, 2024 Dr. Joyce Roe MD Referring Provider Active Start: September 29, 2024 Dr. Abdi Choi DO Attending Provider Active Start: September 29, 2024 Dr. Abdi Choi DO Other Provider Active St art: September 29, 2024 Team Status: Active Member Role Status Dates Dr. Joyce Roe MD Primary Care Provider Active Start: January 10, 2025 Dr. Joyce oRe MD Attending Provider Active Start: January 10, 2025 Dr. Joyce Roe MD Referring Provider Active Start: January 10, 2025 Team Status: Inactive Member Role Status Dates Dr. Joyce Roe MD Primary Care Provider Active Start: January 22, 2025 End: January 22, 2025 Dr. Joyce Roe MD Attending Provider Active Start: January 22, 2025 End: January 22, 2025 Dr. Joyce Roe MD Referring Provider Active Start: January 22, 2025 End: January 22, 2025 Team Status: Inactive Member Role Status Dates Dr. Joyce Roe MD Primary Care Provider Active Start: January 10, 2025 End: January 10, 2025 Dr. Joyce Roe MD Attending Provider Active Start: January 10, 2025 End: January 10, 2025 Dr. Joyce Roe MD Referring Provider Active Start: January 10, 2025 End: January 10, 2025 [employer] Relationship Specialty Start Date End Date Joyce Roe MD [address] [address] PCP - General Internal Medicine 10/10/24 Team Status: Active Member Role/Relationship Status Dates Dr. Joyce Roe MD Primary Care Provider Active Team Status: Inactive Member Role/Relationship Status Dates Dr. Joyce Roe MD Primary Care Provider Active Start: January 10, 2025 End: January 10, 2025 Dr. Joyce Roe MD Attending Provider Active Start: January 10, 2025 End: January 10, 2025 Dr. Joyce Roe MD Referring Provider Active Start: January 10, 2025 End: January 10, 2025 Team Status: Inactive Member Role/Relationship Status Dates Dr. Joyce Roe MD Primary Care Provider Active Start: January 22, 2025 End: January 22, 2025 Dr. Joyce Roe MD Attending Provider Active Start: January 22, 2025 End: January 22, 2025 Dr. Joyce Roe MD Referring Provider Active Start: January 22, 2025 End: January 22, 2025 Team Status: Inactive Member Role/Relationship Status Dates Dr. Joyce Roe MD Primary Care Provider Active Start: March 15, 2025 End: March 15, 2025 Dr. Joyce Roe MD Attending Provider Active Start: March 15, 2025 End: March 15, 2025 Dr. Joyce Roe MD Referring Provider Active Start: March 15, 2025 End: March 15, 2025 Team Status: Active Member Role/Relationship Status Dates Dr. Joyce Roe MD Primary Care Provider Active Start: March 15, 2025 Dr. Saúl Barney MD Attending Provider Active S tart: March 15, 2025 Team Status: Inactive Member Role/Relationship Status Dates Dr. Joyce Roe MD Primary Care Provider Active Start: March 29, 2025 End: March 29, 2025 Dr. Joyce Roe MD Referring Provider Active Start: March 29, 2025 End: March 29, 2025 Dr. Saúl Barney MD Attending Provider Active S tart: March 29, 2025 End: March 29, 2025 Team Status: Inactive Member Role/Relationship Status Dates Dr. Joyce Roe MD Primary Care Provider Active Start: April 03, 2025 End: April 03, 2025 Dr. Joyce Roe MD Referring Provider Active Start: April 03, 2025 End: April 03, 2025 Dr. Curt Stark MD Attending Provider Active Start: April 03, 2025 End: April 03, 2025 Team Status: Active Member Role/Relationship Status Dates Dr. Joyce Roe MD Primary care physician Active Team Status: Inactive Member Role/Relationship Status Dates Dr. Joyce Roe MD Primary care physician Active Start: March 15, 2025 End: March 15, 2025 Dr. Joyce Roe MD Attending physician Active Start: March 15, 2025 End: March 15, 2025 Dr. Joyce Roe MD Referring Provider Active Start: March 15, 2025 End: March 15, 2025 Team Status: Active Member Role/Relationship Status Dates Dr. Joyce Roe MD Primary care physician Active Start: March 15, 2025 Dr. Saúl Barney MD Attending physician Active Start: March 15, 2025 Team Status: Inactive Member Role/Relationship Status Dates Dr. Joyce Roe MD Primary care physician Active Start: March 29, 2025 End: March 29, 2025 Dr. Joyce Roe MD Referring Provider Active Start: March 29, 2025 End: March 29, 2025 Dr. Saúl Barney MD Attending physician Active Start: March 29, 2025 End: March 29, 2025 Team Status: Inactive Member Role/Relationship Status Dates Dr. Joyce Roe MD Primary care physician Active Start: April 03, 2025 End: April 03, 2025 Dr. Joyce Roe MD Referring Provider Active Start: April 03, 2025 End: April 03, 2025 Dr. Curt Stark MD Attending physician Active Start: April 03, 2025 End: April 03, 2025 Team Status: Active Member Role/Relationship Status Dates Dr. Joyce Roe MD Primary care physician Active Start: June 11, 2025 KYA Tate Attending physician Active Start: June 11, 2025 KYA Tate Referring Provider Active S tart: June 11, 2025 Team Status: Inactive Member Role/Relationship Status Dates Dr. Joyce Roe MD Primary care physician Active Start: June 11, 2025 End: June 11, 2025 Dr. Joyce Roe MD Referring Provider Active Start: June 11, 2025 End: June 11, 2025 Dr. Curt Stark MD Attending physician Active Start: June 11, 2025 End: June 11, 2025 INFORMATION SOURCE (unrecogn ized section and content) DATE CREATED AUTHOR 01/21/2023 [facility] DATE CREATED AUTHOR AUTHOR'S ORGANIZ ATION 10/06/2024 [facility] DATE CREATED AUTHOR AUTHOR'S ORGANIZ ATION 10/08/2024 [facility] DATE CREATED AUTHOR AUTHOR'S ORGANIZ ATION 03/20/2025 [facility] DATE CREATED AUTHOR AUTHOR'S ORGANIZ ATION 03/26/2025 [facility] DATE CREATED AUTHOR AUTHOR'S ORGANIZ ATION 07/17/2025 [facility] Source Comments (unrecognize d section and content) In the event this informatio n is protected by the Federal Confidentiality of Alcohol and Drug Abuse Patient Records regulations: The Federal rules restrict any use of the information to criminally investigate or prosecute any alcohol or drug abuse patient.[facility] the event this information is protected by the Federal Confidentiality of Alcohol and Drug Abuse Patient Records regulations: The Federal rules restrict any use of the information to criminally investigate or prosecute any alcohol or drug abuse patient.[facility] the event this information is protected by the Federal Confidentiality of Alcohol and Drug Abuse Patient Records regulations: The Federal rules restrict any use of the information to criminally investigate or prosecute any alcohol or drug abuse patient.[facility] the event this information is protected by the Federal Confidentiality of Alcohol and Drug Abuse Patient Records regulations: The Federal rules restrict any use of the information to criminally investigate or prosecute any alcohol or drug abuse patient.[facility] the event this information is protected by the Federal Confidentiality of Alcohol and Drug Abuse Patient Records regulations: The Federal rules restrict any use of the information to criminally investigate or prosecute any alcohol or drug abuse patient.[facility] the event this information is protected by the Federal Confidentiality of Alcohol and Drug Abuse Patient Records regulations: The Federal rules restrict any use of the information to criminally investigate or prosecute any alcohol or drug abuse patient.[facility] the event this information is protected by the Federal Confidentiality of Alcohol and Drug Abuse Patient Records regulations: The Federal rules restrict any use of the information to criminally investigate or prosecute any alcohol or drug abuse patient.[facility] Reason for Visit (unrecogniz ed section and content) Reason Comments New Patient Specialty Diagnoses / Procedures Referred By Contac t Referred To Contact MR IMAGING Diagnoses Intracranial meningioma (HCC) Benign neoplasm of meninges (HCC) Procedures MRI BRAIN WO/W IVCON MRI BRAIN BRAIN STEM W/O W/CONTRAST MATERIAL Ariane Tolentino, DEANN.GYMNASIUM TEACHER [address] [place] [address] [place] [id number] Referral ID Status Reason Start Date Expiration Date V isits Requested Visits Authorized [id number] Closed Auto-Generate d Referral 10/10/2024 11/09/2025 1 1 Reason Comments Established Patient Reason Comments Consult Reason Comments Established Patient FOR RECORDS PERTAINING TO PATIENTS WHO ARE OR HAVE BEEN ENROLLED IN A CHEMICAL DEPENDENCY/SUBSTANCEABUSE PROGRAM, SOME INFORMATION MAY BE OMITTED. This clinical summary was aggregated from multiple sources. Caution should be exercised in using it in the provision of clinical care. This summary normalizes information from multiple sources, and as a consequence, information in this document may materially change the coding, format and clinical context of patient data. In addition, data may be omitted in some cases. CLINICAL DECISIONS SHOULD BE BASED ON THE PRIMARY CLINICAL RECORDS. [facility] [employer] [facility]. provides no warranty or guarantee of the accuracy or completeness of information in this document.
[2025-07-19 09:33] LABS: AST(SGOT) 25 U/L (<=31); Alanine Aminotransfer ALT/SGPT 13 U/L (<=34); Albumin, Serum 3.6 g/dL (3.4-4.8); Alkaline Phosphatase 63 U/L (35-104); Anion Gap 8 (5-15); BUN 23 mg/dL (4-19); BUN/Creat Ratio 21.2 RATIO (10-20); Calcium,Total 9.4 mg/dL (7.6-11.0); Carbon Dioxide 27.7 mmol/L (21.0-32.0); Chloride 108 mmol/L (98-108); Globulin 1.7 g/dL (2.2-4.2); Glucose 94 mg/dL (70-99); Potassium 3.7 mmol/L (3.3-5.1); Vitamin B12 536 pg/mL (180-914); Vitamin D,25 Hydroxy 51.1 ng/mL (30-100)
[2025-07-19 09:54] LABS: Hematocrit 39.5 % (37-47); Hemoglobin 13.0 g/dL (12.0-15.0); Immature Granulocytes Count 0.030 X10^3/uL (0.0-0.0); Mean Corp Hgb Conc 32.9 g/dL (32-36); Mean Corpuscular Volume 84.4 fL (81-99); Mean Platelet Vol. 11.8 fl (6.2-12.0); NRBC Flagged by Analyzer 0 % (0-5); Platelet Count 178 K/mm3 (150-450); RBC Distribution Width CV 12.7 % (11.6-14.6); RBC Distribution Width SD 38.8 fl (35.1-43.9); Red Blood Count 4.68 M/mm3 (4.2-5.4); White Blood Count 7.2 K/mm3 (4.4-11.0)
[2025-07-20 07:07] LABS: Prealbumin 23 mg/dL (9-32)
== END ==
LOC: OLS.DANBUR 04:00
PROVIDERS: PCP Internal Medicine; Referring Provider Internal Medicine; Visit Provider Internal Medicine
DX: I10 Essential (primary) hypertension (principal); E78.5 Hyperlipidemia, unspecified
CPT/HCPCS: 36415; 80053; 82306; 82607; 84134; 85025; 85652

== ENCOUNTER 2025-07-23 11:00 | Outpatient (RCR) | payer MEDICARE, OTHER, SELFPAY ==
--- NOTE | 2025-04-11 16:27 | HP.PTEVAL_ITS ---
Patient's Visit Information Visit Information Visit Information: PETER MARIEE is a 89 year old F referred to Physical Therapy by KYA Tate with a diagnosis of PD. Date of Evaluation: 04/11/25 Physical Therapist: CARMINA Preston Visit Plan Frequency: 2x /Week Duration: 2 Months Plan: 2X/ week for 8 weeks for gait training, balance, Trunk rotation and stretching of L spine, posture, dual tasking, bed mobility with HEP Subjective Subjective: 2 years ago her walk had changed and she is at [place] and Dr Her said to do PT and that PT thought beginning stages of PD. She was told that she does not smile as much anymore. Pt drools now. She has tremors if she holds something. Her L hand is not as strong as it used to be. She struggles to use her L hand to scrub her head in the shower. She has noticed some coordination issues. She drives and lives indep at [place]. She just started taking PD meds and has not really noticed a difference. She feels weakness in her arms and leg and struggles to turn over in bed. Pt has had head pain on the R side for the last 2 days and has shot her BP up and Dr said it was a migraine. About a month ago she pulled a muscle in her back and had a massage and muscle relaxor and did not really help. Pt is also going to chair yoga. Pain R head pain: Pain Intensity (Out of 10): 1 Pain Intensity Range: 10 Objective Objective: Gait: Walks with decrease stride length, increase veering and tends to speed up and catch self and slow down, decreased heel to toe gait pattern with some scuffing of feet and pt did trip on R foot and therapist did have to grab gait belt with min A. She was aware and did have a good response time. FGA: 13 LE MMT: R hip flex 10.7 and L 11.9 R knee ext 7.5 and L 5.4 R knee flex 5.5 and L 5.7 Stairs: pt is able to go up and down recip with 1 hand rail (she struggles to kick her descending leg out far enough to clear the step she is coming down from with each step) Sit to stand: pt able to stand up on second attempt with no UE Sitting opp arm and leg" able to do X 10 in a row Tight B gastroc Balance/Special Test Scores Functional Gait Assessment Score: 13 % Disability: 56.6700 Lower Extremity Functional Score: 31 Goals Goal 1:: I HEP Goal Time Frame: 6-8 Weeks Goal 2:: Pt to report a little easier to roll over in bed. Goal Time Frame: 6-8 Weeks Goal 3:: Pt to walk with increase stride and increase heel to toe gait pattern with controlling her speed Goal Time Frame: 6-8 Weeks Goal 4:: Be able to walk with increase stride length with increase heel to toe gait pattern Goal Time Frame: 6-8 Weeks Rehabilitation Potential Rehabilitation Potential: Good Anticipated Interventions Patient/Client Instruction: Educate patient on: Condition and Plan of Care For the Purpose of:: To improve muscle performance and motor function, To improve ability to perform ADL's, To improve ability of physical actions for home/community/work/leisure, To improve gait and locomotor functions, To improve endurance, To improve balance and To improve safety with gait Therapeutic Exercise to Include: Strength training, Balance training, Coordination, Postural training, Flexibilty training, Gait and locomotor training, Neuromotor development, Active ROM and Dynamic Lumbar Stabilization For the Purpose of:: To improve muscle performance and motor function, To improve ability to perform ADL's, To increase tolerance to activity/condition/position, To improve performance and independence with ADL's, To decrease level of supervision to perform tasks, To improve ability of physical actions for home/community/work/leisure, To improve gait and locomotor functions, To improve health of tissue, To increase flexibility/ROM, To improve endurance, To improve balance and To improve safety with gait Functional Training to Include: Gait training For the Purpose of:: To improve gait and locomotor functions and To improve safety with gait Manual Therapy Techniques to Include: Passive ROM For the Purpose of:: To increase ROM and To improve gait and locomotor functions Text: Thank you for the opportunity to evaluate your patient. For Medicare and Medicare HMO plans, please review the plan of care and approve it. It will need to be FAXED BACK to us at [phone] for Medicare purposes. For Medicare only, by signing this I certify the plan of care. Please let me know if there are questions or concerns regarding this plan of care. Physician Signature: Date:
--- NOTE | 2025-05-09 11:52 | HP.PTREVAL ---
Re-Evaluation Intro: Oneida Jiménez, ILEANA-C, It has been my pleasure to treat PETER MARIEE over the last 9 visits for PD. Please see the progress note below for an update on the physical therapy plan of care! Subjective Subjective: Pt reports that she and her daughter wants her to get a rollator to use when needed but she needs to be able to get it in and out of the car herself. Pt thinks that therapy made her more conscious of her posture and walking with more of a good stride. She thinks that sometimes her balance is better but not all the time. She has the shakes when trying to put her hearing aides in or lipstick. She still has an issue rolling over in bed. Objective Objective/Function: Gait: flexed trunk with increased stride length with verbal cues. At times her swing leg does not pass stance leg. Plan Plan Plan: Add getting in and out of the car activities and some bed scooting and rolling. Continue with increase stride length and upright posture. 2X/ week for 8 weeks for gait training, balance, Trunk rotation and stretching of L spine, posture, dual tasking, bed mobility with HEP Balance/Gait/Functional tests Balance/Special Test Scores Functional Gait Assessment Score: 13 % Disability: 56.6700 Lower Extremity Functional Score: 31 Goals Goals Goal 1:: I HEP Goal Time Frame: 6-8 Weeks Goal 2:: Pt to report a little easier to roll over in bed. Goal Time Frame: 6-8 Weeks Goal 3:: Pt to walk with increase stride and increase heel to toe gait pattern with controlling her speed Goal Time Frame: 6-8 Weeks Goal 4:: Be able to walk with increase stride length with increase heel to toe gait pattern Goal Time Frame: 6-8 Weeks Anticipated Interventions Anticipated Interventions Patient/Client Instruction: Educate patient on: Condition and Plan of Care For the Purpose of:: To improve muscle performance and motor function, To improve ability to perform ADL's, To improve ability of physical actions for home/community/work/leisure, To improve gait and locomotor functions, To improve endurance, To improve balance and To improve safety with gait Therapeutic Exercise to Include: Strength training, Balance training, Coordination, Postural training, Flexibilty training, Gait and locomotor training, Neuromotor development, Active ROM and Dynamic Lumbar Stabilization For the Purpose of:: To improve muscle performance and motor function, To improve ability to perform ADL's, To increase tolerance to activity/condition/position, To improve performance and independence with ADL's, To decrease level of supervision to perform tasks, To improve ability of physical actions for home/community/work/leisure, To improve gait and locomotor functions, To improve health of tissue, To increase flexibility/ROM, To improve endurance, To improve balance and To improve safety with gait Functional Training to Include: Gait training For the Purpose of:: To improve gait and locomotor functions and To improve safety with gait Manual Therapy Techniques to Include: Passive ROM For the Purpose of:: To increase ROM and To improve gait and locomotor functions Re-Evaluation Ending Re-evaluation ending: Please do not hesitate to contact me at [phone] by phone or if you have questions or concerns regarding this new plan of care! Sincerely, Marianela Johnson MPT
--- NOTE | 2025-06-20 15:56 | HP.OTEVAL ---
Patient's Visit Information Visit Information Visit Information: PETER MARIEE is a 89 year old F, referred to Occupational Therapy by KYA Tate, with a diagnosis of PD. Date of Evaluation: 06/19/25 Occupational Therapist: SANKET Cisse/Ferny, CHT Subjective Subjective: This 89 year old female was seen for OT eval with dx of PD. Pt states within the last 6 month she has noticed a decrease in her FMS more difficulty with left FMS vs right. Pt states she has been had PT for her PD but not her hands. pt states she has noticed improvements with Physical therapy. pt states more difficulty with washing her hair- and fine intricate tasks. pt was involved in the Parkinson's group. ADLs Dressing: Earrings Comments: putting hearing aides in more difficult Bathing: Wash hair Miscellaneous: Unlock front door, Handle money (change), Take things out of wallet, Write and Open doors/Including car door Comments: pt states she is still driving pt states she lives in [facility] pt does her own shopping- Will have grocery delivered pt has a both a tub/shower and walk in shower - has shower chair if she needs on straight cane has rollator will use at [facility] medical alert pt has dtr/ son/ that will help her as needed Strength Shoulder: flex right 13.$# left 15# Elbow: triceps right 17# left 17.6# Biceps 17.9# left 16.4# Distillery Manager: right 50# left 45# Lateral Pinch: right 10# left 8# Tripod Pinch: right 10# left 10# Nine Hole Peg Right: 27.24 seconds Left: 35.05 seconds Quick DASH-Disab of Arm,Shoulder& Hand Quick DASH Score: 43.1800 Goals Goal:: pt will report a increase in IND with grooming, oral care and makeup routine by 70% by d/c pt will demo a reduction in 9 hole peg score bby 5 sec. indicating increase in IND with ADLs and IADLs by d.c \ Goal:: pt will demo undestanding of using adaptive ways to increase pts ind. with ADls and IADLs by d/c Rehabilitation General Assessment: pt demo with a decline in use of bilateral FMS increasing difficulty with ADLS. Pt would benefit from skilled OT services 1-2x week for 4 weeks to assist pt in reaching maximal rehab potential. Pt demo understanding and agree to POC. Rehabilitation Potential: Good Anticipated Interventions Anticipated Interventions: A/AAROM/PROM, Strengthening, Fine Motor Coord/Meir, Neuro Reeducation, Education re assistive Equipment, Education re Diagnosis and Home Program Visit Plan Frequency: 2-3x /Week Duration: 4 Weeks General Plan: energy conservation fatmata. ad. eq. for Increase IND with ADLs Parkinson ed. for ad/ eq. TEXT: Thank you for the opportunity to evaluate your patient. For Medicare and Medicare HMO plans, please review the plan of care and approve it. It will need to be FAXED BACK to us at [phone] for Medicare purposes. Please let me know if there are questions or concerns regarding this plan of care. Physician Signature: Date:
--- NOTE | 2025-07-23 11:00 | HP.OTDCSUM ---
Discharge Summary D/C Summary: It has been my pleasure to treat PETER MARIEE under orders from Oneida Jiménez, KYA, for the diagnosis of PD for a total of 8 visit(s). Please see the following information for a summary of their discharge status. Objective Objective/Function: pt arrives states she is happy with her therapy. 9 hole peg test right 20.45 initial 27.24 seconds definite improvement left 28.98 initial was 35.05 seconds definite improvement. pt demo understanding of her energy conservation and use of her ad. eq. as she needs. Pt agrees to cont. with her HEP and Parkinson exercise group. Goals Patient Goals: Improve Fine Motor Skills, Use Hand/Wrist/Arm Normally Again and Be More Independent in ADLS Goal:: pt will report a increase in IND with grooming, oral care and makeup routine by 70% by d/c ( goal met) pt will demo a reduction in 9 hole peg score bby 5 sec. indicating increase in IND with ADLs and IADLs by d.c (goal met) \ Goal:: pt will demo understanding of using adaptive ways to increase pts ind. with ADls and IADLs by d/c (goal met) Plan Plan: D/C D/C Information Discharge Comments: pt has met OT goals and is d/c with HEP. d/c sentence: If there are questions or concerns regarding this patient's occupational therapy, please fell free to call me at [phone]. Thank you for the referral of this patient. Sincerely, Eileen Landaverde, OTR/L, CHT
--- NOTE | 2025-07-23 11:42 | HP.PTDCSUM ---
Discharge Summary D/C summary: It has been my pleasure to treat PETER MARIEE referred by KAY Tate, with the diagnosis of PD for a total of 27 visit(s). Discharge Date: 07/23/25 Please see the following information for a summary of their discharge status. Subjective Subjective: The foam balance still throws here. Pt reports that she feels stronger. She is more positive from the medication. She has a home routine and a gym routine. Pain R head pain: Pain Intensity (Out of 10): 1 back pain: Pain Intensity (Out of 10): 4 Overall Improvement % Improvement: 90 Objective Objective/Function: Gait: Pt is walking with more upright posture and bigger stride lengths Pt has full understanding of gym exercises and has copy in her chart Goals Goal 1:: I HEP Goal Progress: Goal Met Goal 2:: Pt to report a little easier to roll over in bed. Goal Progress: Goal Met Goal 3:: Pt to walk with increase stride and increase heel to toe gait pattern with controlling her speed Goal Progress: Goal Met Goal 4:: Be able to walk with increase stride length with increase heel to toe gait pattern Goal Progress: Progressing Plan Plan: DC PT to Indep gym routine and PD class D/C Information Discharge Comments: DC PT to HEP and gym routine and PD class d/c sentence: If there are questions or concerns regarding this patient's physical therapy, please feel free to call me at [phone]. Thank you for the referral of this patient. Sincerely, Marianela Johnson, MPT Balance/Gait/Functional tests Balance/Special Test Scores Functional Gait Assessment Score: 13 % Disability: 56.6700 Lower Extremity Functional Score: 52 Improvement % Improvement: 90
== END 2025-07-23 19:00 | disposition home or self-care (01) ==
LOC: PT 11:00
PROVIDERS: PCP Internal Medicine
DX: G20.A1 Parkinson's disease without dyskinesia, without mention of fluctuations (principal)
CPT/HCPCS: 97110; 97161; 97166; 97530